=== PATIENT | female | born 1955 | race Caucasian/White ===

== ENCOUNTER 2018-02-21 10:54 | Emergency (ER) | payer BC, OTHER ==
--- OUTSIDE RECORDS SUMMARY | 2018-02-21 10:57 | XMS REPORT ---
:1955 Author Organization [employer] Care Team Providers Name Role Phone Deepthi Mcleod Provider Role Unavailable Allergies No Known Allergies Problems Problem Type Condition Code Onset Dates Condition Status Problem Sinusitis - Chronic J32.8 Active Problem Cellulitis of face L03.211 Active Problem Allergic rhinitis due to pollen J30.1 Active Problem Arthralgia of bilateral M26.623 Active temporomandibular joint Problem Nasal congestion R09.81 Active Problem Hearing loss - Sensorineural H90.3 Active Bilateral Problem Sinusitis - Chronic J32.8 Active Problem Wheezing R06.2 Active Problem Nasal airway obstruction J34.89 Active Problem Obstructive sleep apnea G47.33 Active Problem Cough R05 Active Medications Medication Code System Code Instructions Start Date End Date Status Dosage Bactrim [facility] [id number] 400-80 MG Orally Nov 15, Nov 29, Active 1 tablet Once a day 2017 2017 Results No Known Results Summary Purpose ReDigiinicalKAYAK Submission
--- OUTSIDE RECORDS SUMMARY | 2018-02-21 10:57 | XMS REPORT | Clinical Summary ---
:1955 Author Organization [facility] Address [address] [place] [address] Care Team Providers Name Role Phone Erasmo Mckenzie MD Primary Care Provider Allergies Active Allergy Reactions Severity Noted Date Comments Iodine Swelling 05/20/2016 Shrimp Swelling 05/20/2016 Current Medications Prescription Sig. Disp. Refills Start Date End Date Status PHENTERMINE HCL Take by mouth. Active (PHENTERMINE ORAL) traMADol (ULTRAM) 50 mg Take 50 mg by mouth Active tablet every 6 (six) hours as needed for moderate pain. atorvastatin (LIPITOR) 10 Take 10 mg by mouth Active MG tablet every evening. carvedilol (COREG) 6.25 Take 6.25 mg by Active MG tablet mouth 2 (two) times a day with meals. furosemide (LASIX) 80 MG Take 80 mg by mouth Active tablet daily. chlorproMAZINE Take 25 mg by mouth Active (THORAZINE) 25 MG tablet nightly. divalproex (DEPAKOTE) 500 Take 1,000 mg by Active MG EC tablet mouth nightly. levothyroxine (SYNTHROID, Take 200 mcg by Active LEVOTHROID) 200 MCG mouth every tablet morning. metFORMIN (GLUCOPHAGE) Take 500 mg by Active 500 MG tablet mouth 2 (two) times a day with meals. potassium chloride Take 10 mEq by Active (K-DUR,KLOR-CON) 10 MEQ mouth daily. CR tablet VENLAFAXINE HCL Take 150 mg by Active (VENLAFAXINE ORAL) mouth daily. MULTIVITAMIN ORAL Take 1 tablet by Active mouth daily. Active Problems Problem Noted Date S/P cervical spinal fusion 06/03/2016 Social History Tobacco Use Types Packs/Day Years Used Date Never Smoker Smokeless Tobacco: Never Used Tobacco Cessation: Counseling Given: No Alcohol Use Drinks/Week oz/Week Comments No Sex Assigned at Date Recorded Not on file Last Filed Vital Signs Not on file Plan of Treatment Health Maintenance Due Date Last Done Comments PAP SMEAR 1975 COLONOSCOPY 2004 MAMMOGRAM 2004 SHINGRIX VACCINE (#1) 2004 ZOSTER VACCINE 2014 INFLUENZA VACCINE 05/17/2018 Implants Implanted Type Area Public Works Supervisor Device Expiration Model / Identifier Date Serial / Lot Bone Matriz Osteocel Pro Small - [id number] - [id number] Human Anterior: NUVASIVE 09/13/2020 [id number] / Implanted: Qty: 1 on 06/03/2016 by Lucio Arzate MD Tissue Spine [id number] / Implants Cervical [id number] Distraction Pin- 12mm - [id number] IMPLANT Anterior: NUVASIVE SPINE [id number] / Implanted: 06/03/2016 (Quantity not on file) DEVICES Spine [id number] / Cervical Gradient Plus , Temporary Tacks - [id number] IMPLANT Anterior: NUVASIVE SPINE 06/02/2026 [id number] / Implanted: 06/03/2016 (Quantity not on file) DEVICES Spine [id number] / Cervical [id number] Spacer Spinal Cntord Med 5mm - [id number] Spinal Anterior: NUVASIVE 2025 [id number] / Implanted: 06/03/2016 (Quantity not on file) Implants Spine [id number] / Cervical [id number] Screw Spinal Fxd Slf-Tap 4x15mm [place] Revolution Acp - [id number] Spinal Anterior: NUVASIVE [id number] / Implanted: 06/03/2016 (Quantity not on file) Implants Spine [id number] / Cervical Screw Spinal Brenden Slf-Tap 4x15mm [place] Revolution Acp - [id number] Spinal Anterior: NUVASIVE [id number] / Implanted: 06/03/2016 (Quantity not on file) Implants Spine [id number] / Cervical Plate Spinal Revltn 1lvl 20mm [place] Acp - [id number] Spinal Anterior: NUVASIVE 06/02/2026 [id number] / Implanted: 06/03/2016 (Quantity not on file) Implants Spine [id number] / Cervical [id number] Results Not on fileafter 02/20/2017 Insurance Payer Benefit Plan / Group Subscriber ID Type Phone Address MEDICARE MEDICARE PART A AND B xxxxxxxxxx Medicare [place], [place] BCBS BCBS CHOICE PPO/FEDERAL EMPL PPO xxxxxxxxxxxx PPO [phone] [facility] [id number] [place] [address]
--- OUTSIDE RECORDS SUMMARY | 2018-02-21 10:57 | XMS REPORT | Clinical Summary ---
:1955 Author Organization [facility] Address [address] [place] [address] Phone Care Team Providers Name Role Phone Unavailable Primary Care Provider Unavailable Allergies Active Allergy Reactions Severity Noted Date Comments Iodine Swelling 05/20/2016 Shrimp Swelling 05/20/2016 Current Medications Prescription Sig. Disp. Refills Start Date End Date Status traZODone (DESYREL) Take 50 mg by Active 50 MG tablet mouth nightly. montelukast Take 10 mg by Active (SINGULAIR) 10 mg mouth every tablet morning. glimepiride Take 1 mg by Active (AMARYL) 1 MG mouth every tablet evening. furosemide (LASIX) Take 40 mg by Active 40 MG tablet mouth every morning. amitriptyline Take 25 mg by Active (ELAVIL) 25 MG mouth nightly. tablet carvedilol (COREG) Take 6.25 mg by Active 6.25 MG tablet mouth 2 (two) times daily. divalproex Take 500 mg by Active (DEPAKOTE) 500 MG mouth 2 (two) EC tablet times daily 2 tabs twice daily . atorvastatin Take 10 mg by Active (LIPITOR) 10 MG mouth daily. tablet levothyroxine Take 150 mcg by Active (SYNTHROID, mouth Every LEVOTHROID) 150 MCG morning on an tablet empty stomach. potassium chloride Take 10 mEq by Active (KLOR-CON) 10 MEQ mouth every CR tablet morning. venlafaxine Take 150 mg by Active (EFFEXOR-XR) 150 MG mouth daily. 24 hr capsule meloxicam (MOBIC) Take 7.5 mg by Active 7.5 MG tablet mouth daily. ferrous gluconate Take 324 mg by Active (FERGON) 324 MG mouth daily with tablet breakfast. cyanocobalamin Take 1,000 mcg by Active (VITAMIN B-12) 1000 mouth daily. MCG tablet cholecalciferol, Take 1,000 Units Active vitamin D3, 2,000 by mouth daily. unit Tab calcium Take 1 tablet by 30 tablet 0 12/04/2017 12/04/19 Active carbonate-vitamin mouth daily. 19 D3 (OSCAL-D) 500 mg(1,250mg) -200 unit per tablet acetaminophen-codei Take 1 tablet by 30 tablet 0 12/03/2017 12/13/19 ne (TYLENOL #4) mouth every 4 18 300-60 mg per (four) hours as tablet needed for Pain for up to 10 days. Max Daily Amount: 6 tablets sulfamethoxazole-tr Take 1 tablet 14 tablet 0 12/03/2017 12/03/19 Discontinued imethoprim (BACTRIM (160 mg of 18 DS) 800-160 mg per trimethoprim tablet total) by mouth 2 (two) times daily for 7 days. sulfamethoxazole-tr Take 1 tablet 14 tablet 0 12/03/2017 12/10/19 imethoprim (BACTRIM (160 mg of 18 DS) 800-160 mg per trimethoprim tablet total) by mouth 2 (two) times daily for 7 days. Active Problems Problem Noted Date Mastitis of left breast unrelated to or 11/30/2017 Diabetes mellitus (HCC) 11/30/2017 KWAKU (obstructive sleep apnea) 11/30/2017 Thyroid disease 11/30/2017 Morbid obesity (HCC) 11/30/2017 Essential hypertension 11/30/2017 Encounters Date Type Specialty Care Team Description 02/13/2018 Office Visit Wound Care Briseyda Santiago MD 02/06/2018 Office Visit Wound Briseyda Schroeder MD 01/25/2018 Office Visit Wound Briseyda Schroeder MD 01/25/2018 Ancillary Orders Lab Briseyda Santiago MD 01/25/2018 Ancillary Orders Lab Briseyda Santiago MD 01/25/2018 Orders Only Wound Care Macario, Chronic skin ulcer, LUZ 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 (HCC) (Primary Dx) 12/08/2017 [facility], Encounter for Encounter Sumaya Hitchcock MD screening mammogram for malignant neoplasm of breast 12/08/2017 Hospital Pavithra Bartlett and other Encounter Sumaya Hitchcock MD nonspecific skin eruption 12/08/2017 Outside Orders Pavithra Bartlett and other Sumaya Hitchcock MD nonspecific skin eruption (Primary Dx) 11/30/2017 - [facility] Internal Andrew Richardson Mastitis of left 12/03/2017 Encounter Medicine MD Anibal breast unrelated to Parhizgar, or MD Davin (Primary Dx) 11/29/2017 Outside Orders Central Scheduling Dhruv, Encounter for Sumaya Hitchcock MD screening mammogram for malignant neoplasm of breast (Primary Dx) 11/14/2017 Orders Only Deepthi Reeves Other chronic MD Benson sinusitis (Primary Dx) 11/14/2017 Orders Only Deepthi Reeves Cough (Primary MD Benson Dx);Other chronic sinusitis 11/14/2017 Hospital Deepthi Mcleod Cough Encounter MD Benson 11/14/2017 Outside Orders Deepthi Mcleod Cough (Primary Dx) MD Benson 08/31/2017 Outside Orders Central Scheduling Maxi Crews Acute sialoadenitis MD Jesús (Primary Dx) after 02/20/2017 Social History Tobacco Use Types Packs/Day Years Used Date Never Smoker Smokeless Tobacco: Never Used Tobacco Cessation: Counseling Given: No Alcohol Use Drinks/Week oz/Week Comments No Sex Assigned at Date Recorded Not on file Last Filed Vital Signs Vital Sign Reading Time Taken Blood Pressure 117/68 12/03/2017 7:10 AM DEPENDENCY CASE MANAGER Pulse 87 12/03/2017 7:10 AM DEPENDENCY CASE MANAGER Temperature 36.4 C (97.6 F) 12/03/2017 7:10 AM DEPENDENCY CASE MANAGER Respiratory Rate 18 12/03/2017 7:10 AM DEPENDENCY CASE MANAGER Oxygen Saturation 93% 12/03/2017 7:10 AM DEPENDENCY CASE MANAGER Inhaled Oxygen Concentration - - Weight 121.6 kg (268 lb) 11/30/2017 2:24 PM DEPENDENCY CASE MANAGER Height 162.6 cm (5' 4") 11/30/2017 2:24 PM DEPENDENCY CASE MANAGER Body Mass Index 46 11/30/2017 2:24 PM DEPENDENCY CASE MANAGER Plan of Treatment Not on file Results Surgically obtained culture + gram stain (01/25/2018 4:09 PM) Component Value Ref Range Result No growth Gram Stain Result <1+ White blood cells seen Gram Stain Result No organisms seen Specimen Performing Laboratory Tissue - Breast, Left [facility] [address] [facility] [address] US Breast Left (12/08/2017 3:56 PM) Specimen Performing Laboratory [facility] Narrative #[id number] - MM, U/S, BREAST, UNILATERAL, LEFT ULTRASOUND OF LEFT BREAST: 12/08/2017 No prior exams were available for comparison. Color flow and real-time ultrasound of the left breast were performed. Ultrasound of all four quadrants and the retroareolar breast was performed.Mondragon scale images of the real-time examination were reviewed. No suspicious abnormalities were seen sonographically in the left breast. The left middle 12 o'clock clinical concern corresponds to focal dermatitis. IMPRESSION: BENIGN The findings and recommendations have been discussed with the patient. There is no sonographic evidence of malignancy. Macie Diop M.D. pth/:12/08/2017 16:18:20 Wastewater Treatment Supervisor: Phuong Pugh Regulatory Product Manager, [facility] Ultrasound BI-RADS: 2 Benign [id number] Procedure Note Interface, External Ris In - 12/08/2017 7:16 PM DEPENDENCY CASE MANAGER #[id number] - MM, U/S, BREAST, UNILATERAL, LEFT ULTRASOUND OF LEFT BREAST: 12/08/2017 No prior exams were available for comparison. Color flow and real-time ultrasound of the left breast were performed. Ultrasound of all four quadrants and the retroareolar breast was performed.Mondragon scale images of the real-time examination were reviewed. No suspicious abnormalities were seen sonographically in the left breast. The left middle 12 o'clock clinical concern corresponds to focal dermatitis. IMPRESSION: BENIGN The findings and recommendations have been discussed with the patient. There is no sonographic evidence of malignancy. Macie Diop M.D. pth/:12/08/2017 16:18:20 Wastewater Treatment Supervisor: Phuong Pugh Regulatory Product Manager, [facility] Ultrasound BI-RADS: 2 Benign [id number] digital mammo diagnostic bilateral (12/08/2017 3:26 PM) Specimen Performing Laboratory [facility] Narrative #[id number] - MM, DIGITAL MAMMO, DIAGNOSTIC, BILATERAL INCLUDING CAD BILATERAL DIGITAL DIAGNOSTIC MAMMOGRAM WITH CAD: 12/08/2017 No prior exams were available for comparison. The tissue of both breasts is predominantly fatty. Current study was also evaluated with a Computer Aided Detection (CAD) system. Benign appearing calcifications are present in both breasts.No significant masses, calcifications, or other findings are seen in either breast. IMPRESSION: BENIGN There is no mammographic abnormality seen in the left breast to correspond with the reported palpable abnormality; however, further workup with ultrasound is recommended. Macie Diop M.D. pth/:12/08/2017 16:16:27 Wastewater Treatment Supervisor: Ashely EMANUEL(R)(M), [facility] Mammogram BI-RADS: 2 Benign G0204 Procedure Note Interface, External Ris In - 12/08/2017 7:16 PM DEPENDENCY CASE MANAGER #[id number] - MM, DIGITAL MAMMO, DIAGNOSTIC, BILATERAL INCLUDING CAD BILATERAL DIGITAL DIAGNOSTIC MAMMOGRAM WITH CAD: 12/08/2017 No prior exams were available for comparison. The tissue of both breasts is predominantly fatty. Current study was also evaluated with a Computer Aided Detection (CAD) system. Benign appearing calcifications are present in both breasts. No significant masses, calcifications, or other findings are seen in either breast. IMPRESSION: BENIGN There is no mammographic abnormality seen in the left breast to correspond with the reported palpable abnormality; however, further workup with ultrasound is recommended. Macie Diop M.D. pth/:12/08/2017 16:16:27 Wastewater Treatment Supervisor: Ashely EMANUEL(R)(M), [facility] Mammogram BI-RADS: 2 Benign G0204 -Glucose meter (12/03/2017 7:33 AM)Only the most recent of10 resultswithin the time period is included. Component Value Ref Range POC-Glucose Meter 125 (H)Comment: TESTED AT [address] 70 - 110 mg/[place] [address] Specimen Performing Laboratory Blood [address] [address] Calcium, Ionized (12/03/2017 4:50 AM)Only the most recent of3 resultswithin the time period is included. Component Value Ref Range Calcium, Ion 1.10 (L) 1.12 - 1.27 mmol/L pH, Blood 7.36 Specimen Performing Laboratory Blood [address] [address] CBC with platelet count + automated diff (12/03/2017 4:50 AM)Only the most recent of5 resultswithin the time period is included. Component Value Ref Range WBC 7.1 3.5 - 10.5 K/L RBC 3.75 (L) 3.93 - 5.22 M/L Hemoglobin 11.6 11.2 - 15.7 GM/DL Hematocrit 37.0 34.1 - 44.9 % MCV 98.7 (H) 79.4 - 94.8 fL MCH 30.9 25.6 - 32.2 pg MCHC 31.4 (L) 32.2 - 35.5 GM/DL RDW 14.5 (H) 11.7 - 14.4 % Platelets 256 150 - 450 K/CU MM MPV 9.2 (L) 9.4 - 12.3 fL nRBC 0 0 - 0 /100 WBC % Neutros 49 % % Lymphs 39 % % Monos 9 % % Eos 2 % % Baso 0 % # Neutros 3.46 1.56 - 6.13 K/L # Lymphs 2.78 1.18 - 3.74 K/L # Monos 0.62 (H) 0.24 - 0.36 K/L # Eos 0.14 0.04 - 0.36 K/L # Baso 0.03 0.01 - 0.08 K/L Immature Granulocytes-Relative 0 0 - 1 % Specimen Performing Laboratory Blood [facility] [address] CBC with platelet count + automated diff (12/03/2017 4:50 AM)Only the most recent of5 resultswithin the time period is included. Specimen Performing Laboratory Blood Narrative The following orders were created for panel order CBC with platelet count + automated diff. Procedure Abnormality Status --------- ------ CBC with platelet count ...[[id number]]AbnormalFinal result Please view results for these tests on the individual orders. Phosphorus (12/03/2017 4:50 AM)Only the most recent of3 resultswithin the time period is included. Component Value Ref Range Phosphorus 4.3 2.3 - 4.7 mg/dL Specimen Performing Laboratory Blood [address] [address] Magnesium (12/03/2017 4:50 AM)Only the most recent of3 resultswithin the time period is included. Component Value Ref Range Magnesium 1.7 1.6 - 2.6 mg/dL Specimen Performing Laboratory Blood [address] [address] Basic Metabolic Panel (12/03/2017 4:50 AM)Only the most recent of5 resultswithin the time period is included. Component Value Ref Range Sodium 135 (L) 136 - 145 meq/L Potassium 3.9 3.5 - 5.1 meq/L Chloride 97 (L) 98 - 107 meq/L CO2 27 22 - 29 meq/L BUN 20 7 - 21 mg/dL Creatinine 0.84 0.57 - 1.25 mg/dL Glucose 117 (H) 70 - 105 mg/dL Calcium 8.7 8.4 - 10.2 mg/dL EGFR 68Comment: ESTIMATED GFR IS NOT ACCURATE mL/min/1.73 sq m CREATININE CLEARANCE IN PREDICTING GLOMERULAR FILTRATION RATE. ESTIMATED GFR IS NOT APPLICABLE FOR DIALYSIS PATIENTS. Specimen Performing Laboratory Blood [address] [address] Vancomycin level, trough (12/02/2017 10:41 AM) Component Value Ref Range Vancomycin Tr 16.1 10.0 - 20.0 ug/mL Specimen Performing Laboratory Blood - Arm, Left [facility] [address] Vitamin D, 25-Hydroxy (12/02/2017 6:03 AM) Component Value Ref Range Vitamin D 25-Hydroxy 22.5 6.6 - 49.9 ng/mL Specimen Performing Laboratory Blood - Arm, [address] [address] Narrative Effective 07/27/2017: Reference Range Change New: 6.6-49.9 ng/mL Previous: 13.0-47.8 ng/mL Recommended Vitamin D Target Range: 30.0-40.0 ng/mL Manual Differential (12/01/2017 4:22 AM) Component Value Ref Range Total Counted Specimen Performing Laboratory Blood [address] [address] TSH/Free T4 If Indicated (12/01/2017 4:22 AM) Component Value Ref Range TSH 4.13 0.35 - 4.94 uIU/mL Specimen Performing Laboratory Blood [address] [address] Hemoglobin A1c (12/01/2017 4:22 AM) Component Value Ref Range Hemoglobin A1C 6.6 (H) 4.3 - 6.1 % Specimen Performing Laboratory Blood [address] [address] Lipid panel (12/01/2017 4:22 AM) Component Value Ref Range Triglycerides 357 mg/dL Cholesterol 161 mg/dL HDL 44 mg/dL LDL Calculated 46 mg/dL Specimen Performing Laboratory Blood [address] [address] Narrative Triglyceride Reference Range: Low Risk <150 [id number] High Risk 200-499 Very High Risk>=500 Cholesterol Reference Range: Low Risk <200 [id number] High Risk>240 HDL Cholesterol Reference Range: Low Risk >=60 High Risk <40 LDL Cholesterol Reference Range: Optimal<100 Near Gfmhznz212-079 [id number] Qalm256-837 Very High >=190 Blood culture (11/30/2017 11:12 PM)Only the most recent of2 resultswithin the time period is included. Component Value Ref Range Result No growth in 5 days Specimen Performing Laboratory Blood - Arm, [address] [address] XR chest 2 views (11/30/2017 3:05 PM)Only the most recent of2 resultswithin the time period is included. Specimen Performing Laboratory [facility] Narrative FINAL REPORT Chest two views compared to November 14, 2017 Discussion: Lungs clear. Heart size normal. No effusion or pneumothorax. There are right shoulder degenerative changes. Widened left AC joint may reflect previous surgery or trauma. Signed: Eryn Lake MD Report Verified Date/Time:11/30/2017 15:19:59 Reading Location: [facility] C013 Consult Reading Room Procedure Note Interface, External Ris In - 11/30/2017 3:22 PM DEPENDENCY CASE MANAGER FINAL REPORT Chest two views compared to November 14, 2017 Discussion: Lungs clear. Heart size normal. No effusion or pneumothorax. There are right shoulder degenerative changes. Widened left AC joint may reflect previous surgery or trauma. Signed: Eryn Lake MD Report Verified Date/Time: 11/30/2017 15:19:59 Reading Location: [facility] B1 [id number] Consult Reading Room Hepatic function panel (11/14/2017 1:30 PM) Component Value Ref Range Protein, Total 7.1 6.0 - 8.3 gm/dL Albumin 3.7 3.5 - 5.0 g/dL Total Bilirubin 0.3 0.2 - 1.2 mg/dL Bilirubin, Direct 0.1 0.1 - 0.5 mg/dL Alkaline Phosphatase 109 40 - 150 U/L AST 18 5 - 34 U/L ALT 9 6 - 55 U/L Specimen Performing Laboratory Blood - Arm, Right [address] [address] Sinus Culture + Gram Stain (11/14/2017 11:23 AM) Component Value Ref Range Result Result 1+ Methicillin resistant Staphylococcus aureus (A) Gram Stain Result <1+ WBCs Gram Stain Result No organisms seen Specimen Performing Laboratory Other [address] [address] Narrative No Normal respiratory batsheva present Organism Antibiotic Method Susceptibility Methicillin resistant Clindamycin 0.25: Susceptible Staphylococcus aureus Methicillin resistant Erythromycin >=8: Resistant Staphylococcus aureus Methicillin resistant Linezolid 2: Susceptible Staphylococcus aureus Methicillin resistant Oxacillin >=4: Resistant Staphylococcus aureus Methicillin resistant Rifampin <=0.5: Susceptible Staphylococcus aureus Methicillin resistant Tetracycline <=1: Susceptible Staphylococcus aureus Methicillin resistant Trimethoprim + <=10: Susceptible Staphylococcus aureus Sulfamethoxazole Methicillin resistant Vancomycin <=0.5: Susceptible Staphylococcus aureus after 02/20/2017
--- OUTSIDE RECORDS SUMMARY | 2018-02-21 10:57 | XMS REPORT ---
:1955 [facility] Team Providers Name Role Phone Deepthi Mcleod Provider Role Unavailable Allergies, Adverse Reactions, Alerts Substance Reaction Event Type N.K.D.A. Info Not Available Non Drug Allergy Problems Problem Type Condition Code Onset Dates Condition Status Problem Allergic rhinitis due to pollen J30.1 Active Problem Nasal airway obstruction J34.89 Active Problem Cellulitis of face L03.211 Active Problem Sinusitis - Chronic J32.8 Active Problem Nasal congestion R09.81 Active Problem Methicillin susceptible B95.61 Active Staphylococcus aureus infection as the cause of diseases classified elsewhere Problem Cough R05 Active Problem Wheezing R06.2 Active Problem Hearing loss - Sensorineural H90.3 Active Bilateral Problem Obstructive sleep apnea G47.33 Active Assessment Nasal airway obstruction J34.89 Active Assessment Sinusitis - Chronic J32.8 Active Problem Arthralgia of bilateral M26.623 Active temporomandibular joint Problem Sinusitis - Chronic J32.8 Active Medications Medication Code Code Instructions Start End Status Dosage System Date Date Bactroban [facility] 52853806657 2 % Nasally Oct Active 1 Twice a day 23, 20, application 2017 2017 to affected area Bactrim ND 71599447612 400-80 MG Oct Active 1 tablet Orally Once a 30, 13, day 2017 2017 Mupirocin [facility] 99909688517 2 % Externally Active 1 Three times a application day to affected area Levothyroxine Sodium ND 79068964505 200 MCG Orally Active 1 tablet Once a day Ferrous Gluconate ND 87489304813 324 (38 Fe) MG Active not defined Orally Augmentin [facility] 95773864612 Active not defined ProAir HFA [facility] 07927277549 108 (90 Base) Active 2 puffs as MCG/ACT needed Inhalation every 4 hrs Trazodone HCl ND 17020849261 150 MG Orally Active 1 tablet at Once a day bedtime Hydrochlorothiazide ND 84330464233 50 MG Orally Active 1 tablet Once a day Medrol (Ranjeet) [facility] 10330453833 4 MG Orally Aug Active as directed 2016 Metformin HCl ND 79778103106 500 MG Orally Active 1 tablet Twice a day with meals Pravastatin Sodium ND 56462164283 40 MG Orally Active 1 tablet Once a day Depakote ER ND 40534955360 500 MG Orally Active not defined Bactrim [facility] 30451630876 400-80 MG Oct Active 1 tablet Orally Once a , , day 2017 2017 Medrol (Ranjeet) [facility] 93783125583 4 MG Orally Oct Active as directed 2015 Results No Known Results Summary Purpose eClinicalWorks Submission
--- OUTSIDE RECORDS SUMMARY | 2018-02-21 10:57 | XMS REPORT ---
:1955 [facility] Providers Name Role Phone Deepthi [...] Arthralgia of bilateral M26.623 Active temporomandibular joint Assessment Methicillin susceptible B95.61 Active Staphylococcus aureus infection as the cause of diseases classified elsewhere Problem Sinusitis - Chronic J32.8 Active Medications Medication Code Code Instructions Start End Status Dosage System Date Date Bactroban [facility] 18939191591 2 % Nasally Oct Active 1 Twice a day , , application 2017 2017 to affected area Medrol (Ranjeet) ND 84446939393 4 MG Orally Oct Active as directed 2015 Ferrous Gluconate ND 64268093162 324 (38 Fe) MG Active not defined Orally Pravastatin Sodium ND 11859210937 40 MG Orally Active 1 tablet Once a day ProAir HFA ND 49331625506 108 (90 Base) Active 2 puffs as MCG/ACT needed Inhalation every 4 hrs Medrol (Ranjeet) ND 86712382775 4 MG Orally Aug Active as directed 2016 Depakote ER ND 25975271638 500 MG Orally Active not defined Mupirocin ND 26352722353 2 % Externally Active 1 Three times a application day to affected area Hydrochlorothiazide ND 83674931377 50 MG Orally Active 1 tablet Once a day Levothyroxine Sodium [facility] 85003295168 200 MCG Orally Active 1 tablet Once a day Trazodone HCl [facility] 35117369844 150 MG Orally Active 1 tablet at Once a day bedtime Augmentin [facility] 18958414292 Active not defined Bactrim [facility] 36075368577 400-80 MG Oct Active 1 tablet Orally Once a 2017 Bactrim [facility] 81801662591 400-80 MG Oct Active 1 tablet Orally Once a , 2017 Metformin HCl [facility] 69022761477 500 MG Orally Active 1 tablet Twice a day with meals Results No Known Results Summary Purpose eClinicalWorks Submission
--- OUTSIDE RECORDS SUMMARY | 2018-02-21 10:57 | XMS REPORT ---
:1955 [facility] Address [address] [place] [place] [address] Care Team Providers Name Role Phone CANDELARIA ISRRAEL DESAI Unavailable Unavailable AILYN SPRING Unavailable Unavailable Problems This patient has no known problems. Allergies, Adverse Reactions, Alerts This patient has no known allergies or adverse reactions. Medications This patient has no known medications. Results Test Description Test Time Test Comments Text Results Atomic Results Result Comments SURGICALLY OBTAINED CULTURE + GRAM STAIN 2018-01-28 10:13:00 Test Item Value Reference Range Comments CULTURE (BEAKER) (test mfcs=2683) No growth GRAM STAIN RESULT (BEAKER) (test cqtg=0976) <1+ White blood cells seen GRAM STAIN RESULT (BEAKER) (test hcpo=87577) No organisms seen MM, U/S, BREAST, UNILATERAL, [id number] 16:18:00Reason for Exam:->r21N# : [id number] - MM, U/S, BREAST, UNILATERAL, LEFTULTRASOUND OF LEFT BREAST : 12/08/2017No prior exams were available for comparison. Color flow and real- time ultrasound of the left breast wereperformed. Ultrasound of all four quadrants and the retroareolar breast was performed.Mondragon scale images of the real-time examination were reviewed. No suspicious abnormalities were seen sonographically in the left breast. The left middle 12 o'clock clinical concern corresponds to focal dermatitis. IMPRESSION: BENIGN The findings and recommendations have been discussed with the patient. There is no sonographic evidence of malignancy. Macie Esquivel M.D. pth/:12/08/2017 16:18:20 Tobacco Baler: Phuong Pugh Dialysis Nurse, [facility] Ultrasound BI-RADS: 2 Benign [address] MM, DIGITAL MAMMO, DIAGNOSTIC, BILATERAL INCLUDING [id number] 16:16:00Reason for Exam:-& gt;Encounter for screening mammogram for malugnant neoplasm of breastMRN#: [id number] - MM, DIGITAL MAMMO, DIAGNOSTIC, BILATERAL INCLUDING CADBILATERAL DIGITAL DIAGNOSTIC MAMMOGRAM WITH CAD: 12/08/2017No prior exams were available for comparison. The tissue of both breasts is predominantly fatty. Current study was also evaluated with a Computer Aided Detection (CAD) system. Benign appearing calcifications are present in both breasts. No significant masses, calcifications, or other findings are seen in either breast. IMPRESSION: BENIGNThere is no mammographic abnormality seen in the left breast to correspond with the reported palpable abnormality; however, further workup with ultrasound is recommended. Macie Esquivel M.D. pth/:12/08/2017 16:16:27 Tobacco Baler: Ashely EMANUEL(Roxana)(M), [facility] Mammogram BI-RADS: 2 Benign [id number] BLOOD [id number] 05:01:00 Test Item Value Reference Range Comments CULTURE (BEAKER) (test faxk=6732) No growth in 5 days BLOOD [id number] 23:00:00 Test Item Value Reference Range Comments CULTURE (BEAKER) (test sekr=0043) No growth in 5 days POCT-GLUCOSE [id number] 07:45:00 Test Item Value Reference Range Comments POC-GLUCOSE METER (BEAKER) 125 mg/dL 70-[address] [facility] [address] [place] [address] (test akvp=1593) [facility] [address] CALCIUM, [id number] 06:18:00 Test Item Value Reference Range Comments CALCIUM IONIZED (BEAKER) (test qcxd=149) 1.10 mmol/L 1.12-1.27 PH, BLOOD (BEAKER) (test xyir=7978) 7.36 [id number] 06:10:00 Test Item Value Reference Range Comments PHOSPHORUS (BEAKER) (test fqer=925) 4.3 mg/dL 2.3-4.7 [id number] 06:10:00 Test Item Value Reference Range Comments MAGNESIUM (BEAKER) (test swot=706) 1.7 mg/dL 1.6-2.6 BASIC METABOLIC [id number] 06:10:00 Test Item Value Reference Range Comments SODIUM (BEAKER) (test 135 meq/L 136-145 xjkb=306) POTASSIUM (BEAKER) (test 3.9 meq/L 3.5-5.1 hzsd=317) CHLORIDE (BEAKER) (test 97 meq/L 98-107 pujy=146) CO2 (BEAKER) (test 27 meq/L 22-29 zwub=807) BLOOD UREA NITROGEN 20 mg/dL 7-21 (BEAKER) (test etps=344) CREATININE (BEAKER) (test 0.84 mg/dL 0.57-1.25 ltdf=518) GLUCOSE RANDOM (BEAKER) 117 mg/dL 70-105 (test zues=970) CALCIUM (BEAKER) (test 8.7 mg/dL 8.4-10.2 lsup=609) EGFR (BEAKER) (test 68 mL/min/1.73 sq m ESTIMATED GFR IS NOT shkk=9209) ACCURATE CREATININE CLEARANCE IN PREDICTING GLOMERULAR FILTRATION RATE. ESTIMATED GFR IS NOT APPLICABLE FOR DIALYSIS PATIENTS. CBC W/PLT COUNT & AUTO [id number] 05:28:00 Test Item Value Reference Range Comments WHITE BLOOD CELL COUNT (BEAKER) (test lznb=530) 7.1 K/ L 3.5-10.5 RED BLOOD CELL COUNT (BEAKER) (test gpeu=041) 3.75 M/ L 3.93-5.22 HEMOGLOBIN (BEAKER) (test zoia=985) 11.6 GM/DL 11.2-15.7 HEMATOCRIT (BEAKER) (test pjop=374) 37.0 % 34.1-44.9 MEAN CORPUSCULAR VOLUME (BEAKER) (test wazo=547) 98.7 fL 79.4-94.8 MEAN CORPUSCULAR HEMOGLOBIN (BEAKER) (test 30.9 pg 25.6-32.2 eogk=729) MEAN CORPUSCULAR HEMOGLOBIN CONC (BEAKER) (test 31.4 GM/DL 32.2-35.5 epfi=734) RED CELL DISTRIBUTION WIDTH (BEAKER) (test 14.5 % 11.7-14.4 blxg=698) PLATELET COUNT (BEAKER) (test twcz=433) 256 K/CU MM 150-450 MEAN PLATELET VOLUME (BEAKER) (test gxjl=219) 9.2 fL 9.4-12.3 NUCLEATED RED BLOOD CELLS (BEAKER) (test 0 /100 WBC 0-0 ruxb=709) NEUTROPHILS RELATIVE PERCENT (BEAKER) (test 49 % ecfo=720) LYMPHOCYTES RELATIVE PERCENT (BEAKER) (test 39 % avwa=816) MONOCYTES RELATIVE PERCENT (BEAKER) (test 9 % ighx=857) EOSINOPHILS RELATIVE PERCENT (BEAKER) (test 2 % yuxm=649) BASOPHILS RELATIVE PERCENT (BEAKER) (test 0 % ulsd=871) NEUTROPHILS ABSOLUTE COUNT (BEAKER) (test 3.46 K/ L 1.56-6.13 nncr=453) LYMPHOCYTES ABSOLUTE COUNT (BEAKER) (test 2.78 K/ L 1.18-3.74 rnnw=315) MONOCYTES ABSOLUTE COUNT (BEAKER) (test 0.62 K/ L 0.24-0.36 pwvc=710) EOSINOPHILS ABSOLUTE COUNT (BEAKER) (test 0.14 K/ L 0.04-0.36 runy=435) BASOPHILS ABSOLUTE COUNT (BEAKER) (test 0.03 K/ L 0.01-0.08 gjxw=746) IMMATURE GRANULOCYTES-RELATIVE PERCENT (BEAKER) 0 % 0-1 (test pbmm=8953) POCT-GLUCOSE [id number] 21:40:00 Test Item Value Reference Range Comments POC-GLUCOSE METER (BEAKER) 138 mg/dL 70-110 TESTED AT [address] (test gbya=9694) [facility] [address] POCT-GLUCOSE [id number] 18:56:00 Test Item Value Reference Range Comments POC-GLUCOSE METER (BEAKER) 98 mg/dL 70-110 TESTED AT [address] (test icll=2200) [facility] [address] POCT-GLUCOSE [id number] 14:49:00 Test Item Value Reference Range Comments POC-GLUCOSE METER (BEAKER) 92 mg/dL 70-[address] [facility] [address] [facility] (test iisb=6561) [facility] [address] VANCOMYCIN LEVEL, [id number] 11:12:00 Test Item Value Reference Range Comments VANCOMYCIN TROUGH (BEAKER) (test szjn=886) 16.1 ug/mL 10.0-20.0 POCT-GLUCOSE [id number] 09:35:00 Test Item Value Reference Range Comments POC-GLUCOSE METER (BEAKER) 123 mg/dL 70-110 TESTED AT [address] (test imbh=6258) [facility] [address] CBC W/PLT COUNT & AUTO [id number] 09:02:00 Test Item Value Reference Range Comments WHITE BLOOD CELL COUNT (BEAKER) (test zpbv=760) 6.2 K/ L 3.5-10.5 RED BLOOD CELL COUNT (BEAKER) (test fkyl=186) 3.72 M/ L 3.93-5.22 HEMOGLOBIN (BEAKER) (test ganx=546) 11.5 GM/DL 11.2-15.7 HEMATOCRIT (BEAKER) (test dqsj=781) 36.5 % 34.1-44.9 MEAN CORPUSCULAR VOLUME (BEAKER) (test dxit=566) 98.1 fL 79.4-94.8 MEAN CORPUSCULAR HEMOGLOBIN (BEAKER) (test 30.9 pg 25.6-32.2 ohwo=313) MEAN CORPUSCULAR HEMOGLOBIN CONC (BEAKER) (test 31.5 GM/DL 32.2-35.5 gfso=986) RED CELL DISTRIBUTION WIDTH (BEAKER) (test 14.4 % 11.7-14.4 tbna=880) PLATELET COUNT (BEAKER) (test jnzq=175) 268 K/CU MM 150-450 MEAN PLATELET VOLUME (BEAKER) (test iklw=411) 9.1 fL 9.4-12.3 NUCLEATED RED BLOOD CELLS (BEAKER) (test 0 /100 WBC 0-0 vham=826) NEUTROPHILS RELATIVE PERCENT (BEAKER) (test 44 % vixi=870) LYMPHOCYTES RELATIVE PERCENT (BEAKER) (test 44 % ziqo=486) MONOCYTES RELATIVE PERCENT (BEAKER) (test 9 % nsqa=218) EOSINOPHILS RELATIVE PERCENT (BEAKER) (test 2 % zyef=767) BASOPHILS RELATIVE PERCENT (BEAKER) (test 0 % goud=326) NEUTROPHILS ABSOLUTE COUNT (BEAKER) (test 2.70 K/ L 1.56-6.13 ddxy=124) LYMPHOCYTES ABSOLUTE COUNT (BEAKER) (test 2.70 K/ L 1.18-3.74 payk=715) MONOCYTES ABSOLUTE COUNT (BEAKER) (test 0.58 K/ L 0.24-0.36 vfeq=346) EOSINOPHILS ABSOLUTE COUNT (BEAKER) (test 0.15 K/ L 0.04-0.36 uuvq=055) BASOPHILS ABSOLUTE COUNT (BEAKER) (test 0.02 K/ L 0.01-0.08 lyzs=312) IMMATURE GRANULOCYTES-RELATIVE PERCENT (BEAKER) 0 % 0-1 (test ukaj=4742) VITAMIN D, [id number] 07:00:00 Test Item Value Reference Range Comments VITAMIN D 25-OH (BEAKER) (test msqv=6669) 22.5 ng/mL 6.6-49.9 Effective 07/27/2017: Reference Range ChangeNew: 6.6-49.9 ng/mL Previous: 13.0 -47.8 ng/mLRecommended Vitamin D Target Range: 30.0-40.0 ng/[id number] 06:39:00 Test Item Value Reference Range Comments PHOSPHORUS (BEAKER) (test joih=122) 4.6 mg/dL 2.3-4.7 [id number] 06:39:00 Test Item Value Reference Range Comments MAGNESIUM (BEAKER) (test xzwy=809) 1.7 mg/dL 1.6-2.6 BASIC METABOLIC [id number] 06:39:00 Test Item Value Reference Range Comments SODIUM (BEAKER) (test 139 meq/L 136-145 xlud=563) POTASSIUM (BEAKER) (test 4.2 meq/L 3.5-5.1 ihiw=437) CHLORIDE (BEAKER) (test 102 meq/L 98-107 nqty=252) CO2 (BEAKER) (test 26 meq/L 22-29 ngao=396) BLOOD UREA NITROGEN 16 mg/dL 7-21 (BEAKER) (test lxmq=491) CREATININE (BEAKER) (test 0.75 mg/dL 0.57-1.25 xjkd=613) GLUCOSE RANDOM (BEAKER) 106 mg/dL 70-105 (test xkax=025) CALCIUM (BEAKER) (test 9.3 mg/dL 8.4-10.2 idxm=475) EGFR (BEAKER) (test 78 mL/min/1.73 sq m ESTIMATED GFR IS NOT fvct=9413) ACCURATE CREATININE CLEARANCE IN PREDICTING GLOMERULAR FILTRATION RATE. ESTIMATED GFR IS NOT APPLICABLE FOR DIALYSIS PATIENTS. CALCIUM, [id number] 06:30:00 Test Item Value Reference Range Comments CALCIUM IONIZED (BEAKER) (test trmo=769) 0.87 mmol/L 1.12-1.27 PH, BLOOD ([facility]) (test olfw=9068) 7.37 POCT-GLUCOSE [id number] 20:32:00 Test Item Value Reference Range Comments POC-GLUCOSE METER (BEAKER) 173 mg/dL 70-110 TESTED AT [address] (test kaeq=0710) [place] [address] POCT-GLUCOSE [id number] 18:41:00 Test Item Value Reference Range Comments POC-GLUCOSE METER (BEAKER) 121 mg/dL 70-110 TESTED AT [address] (test gnym=9900) [place] [address] HEMOGLOBIN [id number] 14:36:00 Test Item Value Reference Range Comments HEMOGLOBIN A1C (BEAKER) (test cgdw=663) 6.6 % 4.3-6.1 POCT-GLUCOSE [id number] 12:36:00 Test Item Value Reference Range Comments POC-GLUCOSE METER (BEAKER) 139 mg/dL 70-110 TESTED AT [address] (test bseu=7098) [place] [id number] POCT-GLUCOSE [id number] 08:34:00 Test Item Value Reference Range Comments POC-GLUCOSE METER (BEAKER) 125 mg/dL 70-110 TESTED AT [address] (test uwmb=2943) [place] [address] CBC W/PLT COUNT & AUTO [id number] 07:16:00 Test Item Value Reference Range Comments WHITE BLOOD CELL COUNT (BEAKER) (test imjh=007) 7.6 K/ L 3.5-10.5 RED BLOOD CELL COUNT (BEAKER) (test kylz=271) 3.58 M/ L 3.93-5.22 HEMOGLOBIN (BEAKER) (test qhbf=961) 11.2 GM/DL 11.2-15.7 HEMATOCRIT (BEAKER) (test kvnb=883) 35.6 % 34.1-44.9 MEAN CORPUSCULAR VOLUME (BEAKER) (test uqmy=811) 99.4 fL 79.4-94.8 MEAN CORPUSCULAR HEMOGLOBIN (BEAKER) (test 31.3 pg 25.6-32.2 sdbv=818) MEAN CORPUSCULAR HEMOGLOBIN CONC (BEAKER) (test 31.5 GM/DL 32.2-35.5 kcnq=590) RED CELL DISTRIBUTION WIDTH (BEAKER) (test 14.5 % 11.7-14.4 njpu=284) PLATELET COUNT (BEAKER) (test fgrz=776) 274 K/CU MM 150-450 MEAN PLATELET VOLUME (BEAKER) (test djlk=469) 9.1 fL 9.4-12.3 NUCLEATED RED BLOOD CELLS (BEAKER) (test 0 /100 WBC 0-0 ewdu=000) NEUTROPHILS RELATIVE PERCENT (BEAKER) (test 44 % ckkc=833) LYMPHOCYTES RELATIVE PERCENT (BEAKER) (test 43 % rydp=450) MONOCYTES RELATIVE PERCENT (BEAKER) (test 10 % potd=577) EOSINOPHILS RELATIVE PERCENT (BEAKER) (test 2 % qtgb=299) BASOPHILS RELATIVE PERCENT (BEAKER) (test 0 % htuo=713) NEUTROPHILS ABSOLUTE COUNT (BEAKER) (test 3.29 K/ L 1.56-6.13 mhyf=961) LYMPHOCYTES ABSOLUTE COUNT (BEAKER) (test 3.26 K/ L 1.18-3.74 rzfy=837) MONOCYTES ABSOLUTE COUNT (BEAKER) (test 0.75 K/ L 0.24-0.36 veor=368) EOSINOPHILS ABSOLUTE COUNT (BEAKER) (test 0.18 K/ L 0.04-0.36 ukre=520) BASOPHILS ABSOLUTE COUNT (BEAKER) (test 0.03 K/ L 0.01-0.08 cwzq=176) IMMATURE GRANULOCYTES-RELATIVE PERCENT (BEAKER) 1 % 0-1 (test tkhq=3681) (MANUAL DIFFERENTIAL)2017-12-01 07:16:00 Test Item Value Reference Range Comments TOTAL COUNTED (BEAKER) (test ldxd=1201) TSH/FREE T4 IF [id number] 06:48:00 Test Item Value Reference Range Comments THYROID STIMULATING HORMONE (BEAKER) (test 4.13 uIU/mL 0.35-4.94 jwvf=770) [id number] 06:25:00 Test Item Value Reference Range Comments PHOSPHORUS (BEAKER) (test okat=498) 3.9 mg/dL 2.3-4.7 [id number] 06:25:00 Test Item Value Reference Range Comments MAGNESIUM (BEAKER) (test igbb=801) 1.8 mg/dL 1.6-2.6 BASIC METABOLIC [id number] 06:25:00 Test Item Value Reference Range Comments SODIUM (BEAKER) (test 138 meq/L 136-145 dkhy=074) POTASSIUM (BEAKER) (test 4.0 meq/L 3.5-5.1 pvra=500) CHLORIDE (BEAKER) (test 102 meq/L 98-107 uehc=849) CO2 (BEAKER) (test 25 meq/L 22-29 wctq=883) BLOOD UREA NITROGEN 15 mg/dL 7-21 (BEAKER) (test boqb=331) CREATININE (BEAKER) (test 0.82 mg/dL 0.57-1.25 amub=625) GLUCOSE RANDOM (BEAKER) 100 mg/dL 70-105 (test iofp=930) CALCIUM (BEAKER) (test 9.0 mg/dL 8.4-10.2 lwky=355) EGFR (BEAKER) (test 70 mL/min/1.73 sq m ESTIMATED GFR IS NOT fbor=6079) ACCURATE CREATININE CLEARANCE IN PREDICTING GLOMERULAR FILTRATION RATE. ESTIMATED GFR IS NOT APPLICABLE FOR DIALYSIS PATIENTS. LIPID [id number] 06:25:00 Test Item Value Reference Range Comments TRIGLYCERIDES (BEAKER) (test forc=744) 357 mg/dL CHOLESTEROL (BEAKER) (test uhzz=964) 161 mg/dL HDL CHOLESTEROL (BEAKER) (test vbbb=668) 44 mg/dL LDL CHOLESTEROL CALCULATED (BEAKER) (test 46 mg/dL fxmn=964) Triglyceride Reference Range: Low Risk <150 Borderline 150- 199 High Risk 200-499 Very High Risk >=500Cholesterol Reference Range: Low Risk <200 Borderline 200-239 High Risk > 240HDL Cholesterol Reference Range: Low Risk >=60 High Risk <40LDL Cholesterol Reference Range: Optimal <100 Near Optimal 100-129 Borderline 130-159 High 160-189 Very High >=190CALCIUM, [id number] 06:02:00 Test Item Value Reference Range Comments CALCIUM IONIZED (BEAKER) (test mvsn=865) 0.84 mmol/L 1.12-1.27 PH, BLOOD (BEAKER) (test vtqn=8622) 7.40 POCT-GLUCOSE [id number] 23:04:00 Test Item Value Reference Range Comments POC-GLUCOSE METER (BEAKER) 92 mg/dL 70-[address] [facility] [address] [facility] (test lmzf=2841) [facility] [address] BASIC METABOLIC [id number] 16:03:00 Test Item Value Reference Range Comments SODIUM (BEAKER) (test 137 meq/L 136-145 xsjh=011) POTASSIUM (BEAKER) (test 4.1 meq/L 3.5-5.1 fgwv=476) CHLORIDE (BEAKER) (test 104 meq/L 98-107 umff=665) CO2 (BEAKER) (test 21 meq/L 22-29 itig=516) BLOOD UREA NITROGEN 14 mg/dL 7-21 (BEAKER) (test ajro=944) CREATININE (BEAKER) (test 0.85 mg/dL 0.57-1.25 dtuu=017) GLUCOSE RANDOM (BEAKER) 103 mg/dL 70-105 (test rvkd=337) CALCIUM (BEAKER) (test 9.0 mg/dL 8.4-10.2 jkdk=666) EGFR (BEAKER) (test 68 mL/min/1.73 sq m ESTIMATED GFR IS NOT xrov=6099) ACCURATE CREATININE CLEARANCE IN PREDICTING GLOMERULAR FILTRATION RATE. ESTIMATED GFR IS NOT APPLICABLE FOR DIALYSIS PATIENTS. CBC W/PLT COUNT & AUTO [id number] 15:58:00 Test Item Value Reference Range Comments WHITE BLOOD CELL COUNT (BEAKER) (test zpfs=203) 7.2 K/ L 3.5-10.5 RED BLOOD CELL COUNT (BEAKER) (test moew=054) 3.79 M/ L 3.93-5.22 HEMOGLOBIN (BEAKER) (test ifyb=225) 12.0 GM/DL 11.2-15.7 HEMATOCRIT (BEAKER) (test fjit=757) 37.8 % 34.1-44.9 MEAN CORPUSCULAR VOLUME (BEAKER) (test oayj=770) 99.7 fL 79.4-94.8 MEAN CORPUSCULAR HEMOGLOBIN (BEAKER) (test 31.7 pg 25.6-32.2 tmyt=514) MEAN CORPUSCULAR HEMOGLOBIN CONC (BEAKER) (test 31.7 GM/DL 32.2-35.5 bnvo=484) RED CELL DISTRIBUTION WIDTH (BEAKER) (test 14.5 % 11.7-14.4 ctuq=120) PLATELET COUNT (BEAKER) (test kkyf=888) 296 K/CU MM 150-450 MEAN PLATELET VOLUME (BEAKER) (test wvps=776) 9.0 fL 9.4-12.3 NUCLEATED RED BLOOD CELLS (BEAKER) (test 0 /100 WBC 0-0 ntgn=474) NEUTROPHILS RELATIVE PERCENT (BEAKER) (test 47 % sjhu=865) LYMPHOCYTES RELATIVE PERCENT (BEAKER) (test 42 % fbtp=274) MONOCYTES RELATIVE PERCENT (BEAKER) (test 8 % vesg=364) EOSINOPHILS RELATIVE PERCENT (BEAKER) (test 2 % rsjs=142) BASOPHILS RELATIVE PERCENT (BEAKER) (test 0 % gyvo=569) NEUTROPHILS ABSOLUTE COUNT (BEAKER) (test 3.41 K/ L 1.56-6.13 ldhr=395) LYMPHOCYTES ABSOLUTE COUNT (BEAKER) (test 3.01 K/ L 1.18-3.74 ikcr=964) MONOCYTES ABSOLUTE COUNT (BEAKER) (test 0.58 K/ L 0.24-0.36 gqbb=775) EOSINOPHILS ABSOLUTE COUNT (BEAKER) (test 0.17 K/ L 0.04-0.36 xnci=532) BASOPHILS ABSOLUTE COUNT (BEAKER) (test 0.03 K/ L 0.01-0.08 dmmr=778) IMMATURE GRANULOCYTES-RELATIVE PERCENT (BEAKER) 0 % 0-1 (test ylpo=4014) RAD, CHEST, 2 [id number] 15:19:00Reason for exam:->cpShould this be performed at the bedside?->NoFINAL REPORT Chest two views compared to November 14, 2017 Discussion: Lungs clear. Heart size normal. No effusion or pneumothorax. There are right shoulder degenerative changes. Widened left AC joint may reflect previous surgery or trauma. Signed: [place] Melani Verified Date/Time: 11/30/2017 15:19:59 Reading Location: [facility] C013W Consult Reading Room SINUS CULTURE + GRAM [id number] 08:42:00 Test Item Value Reference Range Comments CULTURE (BEAKER) (test nauk=2147) Clindamycin (test code=10) Erythromycin (test code=4) Linezolid (test code=40) Nitrofurantoin (test code=23) Oxacillin (test code=14) Rifampin (test code=43) Tetracycline (test code=2) Trimethoprim + Sulfamethoxazole (test code=47) Vancomycin (test code=13) CULTURE (BEAKER) (test 1+ Methicillin resistant aazl=0213) Staphylococcus aureus GRAM STAIN RESULT (BEAKER) <1+ WBCs (test tart=9557) GRAM STAIN RESULT (BEAKER) No organisms seen (test utkw=947949) No Normal respiratory batsheva presentHEPATIC FUNCTION [id number] 14:45:00 Test Item Value Reference Range Comments TOTAL PROTEIN (BEAKER) (test lidz=466) 7.1 gm/dL 6.0-8.3 ALBUMIN (BEAKER) (test eahn=4185) 3.7 g/dL 3.5-5.0 BILIRUBIN TOTAL (BEAKER) (test tvab=298) 0.3 mg/dL 0.2-1.2 BILIRUBIN DIRECT (BEAKER) (test chdi=195) 0.1 mg/dL 0.1-0.5 ALKALINE PHOSPHATASE (BEAKER) (test dmnc=459) 109 U/L 40-150 AST (SGOT) (BEAKER) (test sgnf=856) 18 U/L 5-34 ALT (SGPT) (BEAKER) (test zpvx=858) 9 U/L 6-55 BASIC METABOLIC [id number] 14:45:00 Test Item Value Reference Range Comments SODIUM (BEAKER) (test 137 meq/L 136-145 mfsf=638) POTASSIUM (BEAKER) (test 3.8 meq/L 3.5-5.1 bskm=613) CHLORIDE (BEAKER) (test 101 meq/L 98-107 nsqg=345) CO2 (BEAKER) (test 25 meq/L 22-29 ofnp=786) BLOOD UREA NITROGEN 16 mg/dL 7-21 (BEAKER) (test cqxt=590) CREATININE (BEAKER) (test 0.73 mg/dL 0.57-1.25 clym=361) GLUCOSE RANDOM (BEAKER) 89 mg/dL 70-105 (test msch=154) CALCIUM (BEAKER) (test 8.7 mg/dL 8.4-10.2 zzap=055) EGFR (BEAKER) (test 81 mL/min/1.73 sq m ESTIMATED GFR IS NOT mxxy=0016) ACCURATE CREATININE CLEARANCE IN PREDICTING GLOMERULAR FILTRATION RATE. ESTIMATED GFR IS NOT APPLICABLE FOR DIALYSIS PATIENTS. CBC W/PLT COUNT & AUTO [id number] 14:12:00 Test Item Value Reference Range Comments WHITE BLOOD CELL COUNT (BEAKER) (test szuv=663) 7.8 K/ L 3.5-10.5 RED BLOOD CELL COUNT (BEAKER) (test jmfj=616) 3.73 M/ L 3.93-5.22 HEMOGLOBIN (BEAKER) (test sepu=755) 11.7 GM/DL 11.2-15.7 HEMATOCRIT (BEAKER) (test irww=290) 36.4 % 34.1-44.9 MEAN CORPUSCULAR VOLUME (BEAKER) (test rohb=396) 97.6 fL 79.4-94.8 MEAN CORPUSCULAR HEMOGLOBIN (BEAKER) (test 31.4 pg 25.6-32.2 vsps=145) MEAN CORPUSCULAR HEMOGLOBIN CONC (BEAKER) (test 32.1 GM/DL 32.2-35.5 qaeo=443) RED CELL DISTRIBUTION WIDTH (BEAKER) (test 14.3 % 11.7-14.4 ykuk=423) PLATELET COUNT (BEAKER) (test ksvj=989) 291 K/CU MM 150-450 MEAN PLATELET VOLUME (BEAKER) (test lszf=319) 9.3 fL 9.4-12.3 NUCLEATED RED BLOOD CELLS (BEAKER) (test 0 /100 WBC 0-0 mczv=940) NEUTROPHILS RELATIVE PERCENT (BEAKER) (test 48 % utvl=906) LYMPHOCYTES RELATIVE PERCENT (BEAKER) (test 40 % llhv=283) MONOCYTES RELATIVE PERCENT (BEAKER) (test 8 % ykwx=578) EOSINOPHILS RELATIVE PERCENT (BEAKER) (test 3 % jkds=510) BASOPHILS RELATIVE PERCENT (BEAKER) (test 0 % gixq=095) NEUTROPHILS ABSOLUTE COUNT (BEAKER) (test 3.72 K/ L 1.56-6.13 xzut=159) LYMPHOCYTES ABSOLUTE COUNT (BEAKER) (test 3.13 K/ L 1.18-3.74 jzql=013) MONOCYTES ABSOLUTE COUNT (BEAKER) (test 0.64 K/ L 0.24-0.36 sarh=435) EOSINOPHILS ABSOLUTE COUNT (BEAKER) (test 0.20 K/ L 0.04-0.36 fbka=722) BASOPHILS ABSOLUTE COUNT (BEAKER) (test 0.03 K/ L 0.01-0.08 ogfa=191) IMMATURE GRANULOCYTES-RELATIVE PERCENT (BEAKER) 0 % 0-1 (test suwb=4454) RAD, CHEST, 2 [id number] 13:06:00Reason for Exam:->[id number] REPORT HISTORY : R05. Comparison: None Comment: Two views of the chest,PA and lateral, were obtained. The cardiac silhouette is within normal limits. There is no pleural effusion, pneumothorax or infiltrate. No lytic or blastic abnormalities. Fixation hardware is seen in the cervical spine. Multilevel degenerative disc changes of the thoracic spine are seen. Impression: No acute cardiothoracic abnormalities. Signed: Kelly Chapin MDReport Verified Date/Time: 11/14/2017 13:06:08 Reading Location: [address] Radiology Reading Room CT ABDOMEN AND PELVIS W/WOCLINICAL INDICATION: R50.9 Fever , unspecifiedMODALITY: [employer] [address] (Iterative dose reduction technique is used).TECHNIQUE: Helical imaging of the abdomen and pelvis is performed. Oral contrast is administered. 85 mls optiray are administered IV. Imaging performed prior to and after administration of contrast.Computed Tomography Dose Index: 86.4 mGy. IMPRESSION:1. No acute abnormality.2. Hepatomegaly with diffuse fatty infiltration.3. Gastric bypass postoperative changes with small hiatal hernia.4. Cholecystectomy.5. Hysterectomy.FINDINGS: COMPARISON: NoneThe liver is mildly enlarged and demonstrates diffuse fatty infiltration. No focal liver lesions are detected. Hepatic veins, portal venous system and biliary tree are normal. The gallbladder is surgically absent.A small hiatal hernia is noted. Postoperative changes consistent with gastric bypass are evident.The spleen is normal in size and contour. The pancreas demonstrates fatty atrophy. No pancreatic mass, pancreatic duct dilatation or peripancreatic edema is visible.Adrenal glands and kidneys are normal. There are no renal calculi, hydronephrosis or masses noted.Neither retrocrural nor retroperitoneal adenopathy is present. Vascular structures are within normal limits.No significant bowel pathology is noted. A few, scattered colonic diverticuli are noted without evidence of diverticulitis. The appendix is not clearly visualized, however there are no inflammatory changes in the right lower quadrant to suggest appendicitis. Omentum and mesentery are unremarkable.Abdominal wall is intact.No ascites visualized.No lytic or blastic osseous lesions are observed.The urinary bladder is unremarkable.The uterus is absent. No suspicious adnexal masses are present. No free fluid is present in the pelvis.No pelvic or inguinal lymphadenopathy is evident.PQRS 436: [id number] ( For official use only.)
--- OUTSIDE RECORDS SUMMARY | 2018-02-21 10:58 | XMS REPORT ---
:1955 Author Organization [facility] Care Team Providers Name Role Phone Deepthi Mcleod Provider Role Unavailable Allergies No Known Allergies Problems Problem Type Condition Code Onset Dates Condition Status Problem Allergic rhinitis due to pollen J30.1 Active Problem Nasal airway obstruction J34.89 Active Problem Cellulitis of face L03.211 Active Problem Arthralgia of bilateral M26.623 Active temporomandibular joint Problem Sinusitis - Chronic J32.8 Active Problem Sinusitis - Chronic J32.8 Active Problem Nasal congestion R09.81 Active Problem Methicillin susceptible B95.61 Active Staphylococcus aureus infection as the cause of diseases classified elsewhere Problem Cough R05 Active Problem Wheezing R06.2 Active Problem Hearing loss - Sensorineural H90.3 Active Bilateral Problem Obstructive sleep apnea G47.33 Active Medications No Known Medications Results No Known Results Summary Purpose [facility] Submission
--- OUTSIDE RECORDS SUMMARY | 2018-02-21 10:58 | XMS REPORT ---
:1955 Author Organization [facility] Care Team Providers Name Role Phone Deepthi [...] Medications Results No Known Results Summary Purpose [facility] Submission
--- NOTE | 2018-02-21 11:54 | EKG ---
Test Date: 2018-02-21 Test Time: 11:06:46 Sustainability Officer: YAYA MEASUREMENT RESULTS: Intervals: Rate: 82 IA: 188 QRSD: 128 QT: 410 QTc: 479 [place]: P: 33 IA: 188 QRS: -47 T: 71 INTERPRETIVE STATEMENTS: Normal sinus rhythm Left bundle branch block Abnormal ECG Compared to ECG 01/05/2018 05:22:37 Left bundle-branch block now present Left anterior fascicular block no longer present T-wave abnormality no longer present Electronically Signed On 02-21-18 11:53:57 CDT by Jj Sanchez
--- NOTE | 2018-02-21 12:06 | RAD REPORT ---
EXAM DESCRIPTION: RAD - Chest Single View - 02/21/2018 11:50 am CLINICAL HISTORY: Chest pain. COMPARISON: 01/05/2018 FINDINGS: Portable technique limits examination quality. The lungs are grossly clear. The heart is upper limit normal size. No displaced fractures.Cervical hodges rdware plate noted. IMPRESSION: No acute intrathoracic process suspected.
[2018-02-21 12:11] LABS: Absolute Lymphocytes (CBC) 2.8 K/uL (0.7-4.9); Absolute Monocytes 0.6 K/uL (0.1-1.3); Absolute Neutrophil 3.7 K/uL (1.8-8.0); Basophils % 1.2 % (0-1.3); Eosinophils % 3.1 % (0-4.4); Hematocrit 34.7 % (36.0-45.0); Lymphocytes % 37.7 % (15.3-44.8); MCH 30.9 pg (27.0-35.0); MCV 95.6 fL (80-100); MPV 7.8 fL (7.6-11.3); Monocytes % 8.5 % (3.3-12.3); Protime INR 0.96; RBC Red Blood Cell Count 3.63 M/uL (3.86-4.86)
[2018-02-21] MEDS ORDERED: FUROSEMIDE 100 MG/10 ML VIAL IV ONE (12:12)
[2018-02-21 13:49] LABS: Urine Blood TRACE (NEG); Urine Glucose NEGATIVE (NEG); Urine Protein NEGATIVE (NEG)
--- NOTE | 2018-02-21 15:17 | RAD REPORT ---
EXAM DESCRIPTION: CT - Chest For Pe Angio - 02/21/2018 2:46 pm CLINICAL HISTORY: Chest pain and shortness of breath since this morning COMPARISON: None. TECHNIQUE: Dynamically enhanced axial 3 mm thick images of the chest were obtained during administra tion of <100> mL Isovue 370 IV contrast. Coronal and oblique reconstruction images were generated and reviewed. Exam utilizes a protocol for optimal evaluation of pulmonary arterial tree. All CT scans are performed using dose optimization technique as appropriate and may include automated exposure control or mA/KV adjustment according to patient size. FINDINGS: A pulmonary embolus is not seen. A thoracic aortic aneurysm is not noted. A pleural effusion is not seen. A pericardial effusion is not seen. A lung consolidation is not present. IMPRESSION: Negative for a pulmonary embolism.
--- NOTE | 2018-02-21 15:27 | EDPHYS ---
Physician Documentation [facility] Name: Lara Liu Age: 62 yrs Sex: Female : 1955 Arrival Date: 02/21/2018 Time: 10:59 Bed 14 Private MD: out of town, doctor ED Physician Obey Marie HPI: 02/21 15:47 This 62 yrs old Female presents to ER via Ambulatory with complaints of Chest gs Pain, Abdominal Swelling. 15:47 The patient or guardian reports chest pain that is located primarily in the epigastric gs area. Onset: this morning. Associated signs and symptoms: Pertinent positives: shortness of breath. The chest pain is described as a heaviness. Duration: The patient or guardian reports multiple episodes, that wax and wane, with no pattern. Modifying factors: The symptoms are alleviated by nothing. the symptoms are aggravated by nothing. Severity of pain: At its worst the pain was mild in the emergency department the pain has resolved. main problem she said is increased edema legs and stomach area. Historical: - Allergies: : No Known Allergies; hj - Home Meds: 11:06 amitriptyline 25 mg Oral tab 1 tab once daily [Active]; c pap machine at home [Active]; hj carvedilol 6.25 mg Oral tab 1 tab 2 times per day [Active]; carvedilol 6.25 mg Oral tab 1 tab 2 times per day [Active]; Depakote ER 500 mg Oral Tb24 2 tabs twice a day [Active]; Lasix Oral once daily [Active]; levothyroxine 150 mcg tab 1 tab once daily [Active]; meloxicam 7.5 mg Oral tab 1 tab once daily [Active]; carvedilol 25 mg Oral tab 1 tab [Active]; phentermine 37.5 mg Oral cap 1 cap once daily [Active]; tramadol 50 mg Oral tab 1 tab every 6 hours [Active]; trazodone 50 mg Oral tab 1 tab nightly [Active]; venlafaxine 150 mg Oral cp24 1 cap once daily [Active]; glimepiride 1 mg Oral tab 1 tab once daily [Active]; - PMHx: 11:06 CHF; Diabetes - NIDDM; Hyperlipidemia; Hypertension; Hypothyroidism; Sleep Apnea; hj - PSHx: 11:06 None; hj - Immunization history:: Adult Immunizations up to date. - Social history:: Smoking status: Patient/guardian denies using tobacco, Patient/guardian denies using alcohol. ROS: 15:47 All other systems are negative. gs Exam: 15:47 Head/Face: Normocephalic, atraumatic. Eyes: Pupils equal round and reactive to light, gs extra-ocular motions intact. Lids and lashes normal. Conjunctiva and sclera are non-icteric and not injected. Cornea within normal limits. Periorbital areas with no swelling, redness, or edema. ENT: Nares patent. No nasal discharge, no septal abnormalities noted. Tympanic membranes are normal and external auditory canals are clear. Oropharynx with no redness, swelling, or masses, exudates, or evidence of obstruction, uvula midline. Mucous membranes moist. Neck: Trachea midline, no thyromegaly or masses palpated, and no cervical lymphadenopathy. Supple, full range of motion without nuchal rigidity, or vertebral point tenderness. No Meningismus. Chest/axilla: Normal chest wall appearance and motion. Nontender with no deformity. No lesions are appreciated. Cardiovascular: Regular rate and rhythm with a normal S1 and S2. No gallops, murmurs, or rubs. Normal PMI, no JVD. No pulse deficits. 15:47 Abdomen/GI: Soft, non-tender, with normal bowel sounds. No distension or tympany. No guarding or rebound. No evidence of tenderness throughout. Back: No spinal tenderness. No costovertebral tenderness. Full range of motion. Skin: Warm, dry with normal turgor. Normal color with no rashes, no lesions, and no evidence of cellulitis. MS/ Extremity: Pulses equal, no cyanosis. Neurovascular intact. Full, normal range of motion. Neuro: Awake and alert, GCS 15, oriented to person, place, time, and situation. Cranial nerves II-XII grossly intact. Motor strength 5/5 in all extremities. Sensory grossly intact. Cerebellar exam normal. Normal gait. 15:47 Constitutional: The patient appears alert, awake. 15:47 Cardiovascular: Edema: 2+ edema to level of left ankle and right ankle. 15:47 ECG was reviewed by the Attending Physician. 15:47 Respiratory: Breath sounds: decreased breath sounds, that are moderate, are located in both bases. Vital Signs: 11:07 Weight 136.08 kg; Height 5 ft. 4 in. (162.56 cm); Pain 8/10; hj 11:20 BP 151 / 87; Pulse 77; Resp 16; Temp 98.3; Pulse Ox 96% on R/A; Pain 8/10; ch 13:35 BP 171 / 89; Pulse 81; Resp 19; Pulse Ox 98% on R/A; mh5 14:14 BP 159 / 87; Pulse 80; Resp 22; Temp 97.8; Pulse Ox 99% on R/A; Pain 6/10; ch 15:36 BP 148 / 82; Pulse 74; Resp 15; Temp 98.3; Pulse Ox 96% on R/A; Pain 5/10; ch 11:07 Body Mass Index 51.49 (136.08 kg, 162.56 cm) hj MDM: 11:28 Patient medically screened. gs 15:47 Differential diagnosis: chest wall pain, congestive heart failure pneumonia, pulmonary gs embolus. Data reviewed: vital signs, nurses notes, and as a result, I will discharge patient. 02/21 11:29 Order name: BNP; Complete Time: 12:52 02/21 11:29 Order name: Basic Metabolic Panel; Complete Time: 12:52 02/21 11:29 Order name: CBC with Diff; Complete Time: 12:19 gs 02/21 11:29 Order name: Magnesium; Complete Time: 12:52 02/21 11:29 Order name: PT-INR; Complete Time: 12:19 02/21 11:29 Order name: Troponin (emerg Dept Use Only); Complete Time: 12:52 02/21 11:07 Order name: EKG; Complete Time: 11:08 hj 02/21 11:29 Order name: XRAY Chest (1 view); Complete Time: 12:19 gs 02/21 11:29 Order name: Cardiac monitoring; Complete Time: 12:05 gs 02/21 12:54 Order name: D-Dimer; Complete Time: 13:51 gs 02/21 13:26 Order name: Urine Dipstick--Ancillary (enter results); Complete Time: 13:51 ag 02/21 13:52 Order name: CT Chest For PE Angio; Complete Time: 15:25 gs 02/21 13:52 Order name: Troponin (emerg Dept Use Only); Complete Time: 15:07 02/21 11:29 Order name: IV Saline Lock; Complete Time: 12:07 02/21 11:29 Order name: Labs collected and sent; Complete Time: 12:42 02/21 11:29 Order name: O2 Per Protocol; Complete Time: 12:42 02/21 11:29 Order name: O2 Sat Monitoring; Complete Time: 12:42 02/21 11:29 Order name: Urine Dipstick-Ancillary (obtain specimen); Complete Time: 12:06 EC:47 Rate is 82 beats/min. Rhythm is regular. AK interval is normal. QRS interval is gs prolonged. T waves are Normal. No ST changes noted. Clinical impression: Abnormal EKG without significant change. Interpreted by me. Administered Medications: 12:16 Drug: Lasix 60 mg Route: IVP; Site: right forearm; 12:42 Follow up: Response: No adverse reaction; Marked relief of symptoms 14:19 Follow up: Response: No adverse reaction; Marked relief of symptoms Disposition: 02/21/18 15:27 Discharged to Home. Impression: Dyspnea. - Condition is Stable. - Discharge Instructions: Shortness of Breath, [id number]-[id number], Heart Failure, [id number]. - Work release form, Medication Reconciliation Form, Thank You Letter, Antibiotic Education, Prescription Opioid Use form. - Follow up: Private Physician; When: 2 - 3 days; Reason: Re-evaluation by your physician. Signatures: Dispatcher [employer] Danielle Menjivar RN RN Rowdy Cool RN RN Victorina Valenzuela [facility] Obey Marie MD MD Corrections: (The following items were deleted from the chart) 15:49 15:27 02/21/2018 15:27 Discharged to Home. Impression: Dyspnea. Condition is Stable. [facility] Forms are Medication Reconciliation Form, Thank You Letter, Antibiotic Education, Prescription Opioid Use. Follow up: Private Physician; When: 2 - 3 days; Reason: Re-evaluation by your physician.
--- NOTE | 2018-02-21 15:27 | ER ---
Nurse's Notes [facility] Name: Lara Liu Age: 62 yrs Sex: Female : 1955 Arrival Date: 02/21/2018 Time: 10:59 Bed 14 Private MD: out of town, doctor Diagnosis: Dyspnea Presentation: 02/21 11:03 Presenting complaint: Patient states: i was at work this morning when while walking and hj had sudden short of breath; pain 7/10; i noticed like my stomach is filled with fluids; hx of CHF;. Transition of care: patient was not received from another setting of care. Onset of symptoms was February 21, 2018. Initial Sepsis Screen: Does the patient meet any 2 criteria? No. Patient's initial sepsis screen is negative. Does the patient have a suspected source of infection? No. Patient's initial sepsis screen is negative. Care prior to arrival: None. 11:03 Method Of Arrival: Ambulatory 11:03 Acuity: CRIS 3 hj Triage Assessment: 11:06 General: Appears in no apparent distress. uncomfortable, obese, Behavior is calm, hj cooperative, appropriate for age. Pain: Complains of pain in chest. Cardiovascular: Capillary refill < 3 seconds Patient's skin is warm and dry. Historical: - Allergies: 11:06 No Known Allergies; hj - Home Meds: 11:06 amitriptyline 25 mg Oral tab 1 tab once daily [Active]; c pap machine at home [Active]; hj carvedilol 6.25 mg Oral tab 1 tab 2 times per day [Active]; carvedilol 6.25 mg Oral tab 1 tab 2 times per day [Active]; Depakote ER 500 mg Oral Tb24 2 tabs twice a day [Active]; Lasix Oral once daily [Active]; levothyroxine 150 mcg tab 1 tab once daily [Active]; meloxicam 7.5 mg Oral tab 1 tab once daily [Active]; carvedilol 25 mg Oral tab 1 tab [Active]; phentermine 37.5 mg Oral cap 1 cap once daily [Active]; tramadol 50 mg Oral tab 1 tab every 6 hours [Active]; trazodone 50 mg Oral tab 1 tab nightly [Active]; venlafaxine 150 mg Oral cp24 1 cap once daily [Active]; glimepiride 1 mg Oral tab 1 tab once daily [Active]; - PMHx: 11:06 CHF; Diabetes - NIDDM; Hyperlipidemia; Hypertension; Hypothyroidism; Sleep Apnea; hj - PSHx: 11:06 None; hj - Immunization history:: Adult Immunizations up to date. - Social history:: Smoking status: Patient/guardian denies using tobacco, Patient/guardian denies using alcohol. Screenin:07 Abuse screen: Denies threats or abuse. Denies injuries from another. Nutritional hj screening: No deficits noted. Tuberculosis screening: No symptoms or risk factors identified. Fall Risk Secondary diagnosis (15 points). Assessment: 11:06 Pain: Pain does not radiate. Pain began 4 hours ago. hj 11:40 Reassessment: Patient appears in no apparent distress at this time. Patient and/or ch family updated on plan of care and expected duration. Pain level reassessed. Patient is alert, oriented x 3, equal unlabored respirations, skin warm/dry/pink. General: Appears in no apparent distress. comfortable, Behavior is calm, cooperative, appropriate for age. Neuro: Level of Consciousness is awake, alert, obeys commands, Oriented to person, place, time, situation. Respiratory: Airway is patent Trachea midline Respiratory effort is even, unlabored, Respiratory pattern is regular, Breath sounds are coarse bilaterally. Breath sounds are diminished bilaterally. pt states she feels lilke she cannot take a deep breath in. GI: Abdomen is non-distended, obese, Bowel sounds present X 4 quads. Derm: Skin is pink, warm \T\ dry. 14:14 Reassessment: Patient appears in no apparent distress at this time. Patient and/or ch family updated on plan of care and expected duration. Pain level reassessed. Patient is alert, oriented x 3, equal unlabored respirations, skin warm/dry/pink. PT HAS URINATED VIA BSC 4 TIMES. PT TOLERATED MOVEMENT WELL. Patient states feeling better. Patient states symptoms have improved. 15:16 Reassessment: patient assisted onto bedside commode to urinate. ae1 15:22 Reassessment: Patient appears in no apparent distress at this time. Patient and/or ch family updated on plan of care and expected duration. Pain level reassessed. Patient is alert, oriented x 3, equal unlabored respirations, skin warm/dry/pink. Patient states feeling better. Patient states symptoms have improved. resps even and unlabored, no s/s of distress. pt verb understanding of waiting for ct results. pt given po ice chips. . 15:35 Reassessment: Patient appears in no apparent distress at this time. Patient and/or ch family updated on plan of care and expected duration. Pain level reassessed. Patient is alert, oriented x 3, equal unlabored respirations, skin warm/dry/pink. Patient states feeling better. Patient states symptoms have improved. erp in room discussing dx, discharge, and follow up care. . Vital Signs: 11:07 Weight 136.08 kg; Height 5 ft. 4 in. (162.56 cm); Pain 8/10; hj 11:20 BP 151 / 87; Pulse 77; Resp 16; Temp 98.3; Pulse Ox 96% on R/A; Pain 8/10; ch 13:35 BP 171 / 89; Pulse 81; Resp 19; Pulse Ox 98% on R/A; mh5 14:14 BP 159 / 87; Pulse 80; Resp 22; Temp 97.8; Pulse Ox 99% on R/A; Pain 6/10; ch 15:36 BP 148 / 82; Pulse 74; Resp 15; Temp 98.3; Pulse Ox 96% on R/A; Pain 5/10; ch 11:07 Body Mass Index 51.49 (136.08 kg, 162.56 cm) ED Course: 10:59 Patient arrived in ED. mr 10:59 out of town, doctor is Private Physician. mr 11:03 Rowdy Cool, RN is Primary Nurse. hj 11:05 Triage completed. hj 11:06 Arm band placed on right wrist. hj 11:07 Patient has correct armband on for positive identification. Placed in gown. Bed in low hj position. Side rails up X 1. mother repairer on. Pulse ox on. NIBP on. 11:07 Patient maintains SpO2 saturation greater than 95% on room air. hj 11:12 Obey Marie MD is Attending Physician. gs 11:19 EKG done, by telecommunications field technician. reviewed by Fidencio Ford MD. at1 11:39 Danielle Stout, RN is Primary Nurse. ch 11:40 Warm blanket given. ch 11:40 No provider procedures requiring assistance completed. ch 11:40 Inserted saline lock: 22 gauge in right forearm, using aseptic technique. Blood ch collected. 11:49 X-ray completed. Portable x-ray completed in exam room. Patient tolerated procedure sw well. 11:50 XRAY Chest (1 view) In Process Unspecified. EDMS 14:46 CT Chest For PE Angio In Process Unspecified. EDMS 19:30 IV discontinued, intact, bleeding controlled, No redness/swelling at site. Pressure ch dressing applied. Administered Medications: 12:16 Drug: Lasix 60 mg Route: IVP; Site: right forearm; ch 12:42 Follow up: Response: No adverse reaction; Marked relief of symptoms ch 14:19 Follow up: Response: No adverse reaction; Marked relief of symptoms ch Outcome: 15:27 Discharge ordered by . 15:45 Discharged to home via wheelchair. 15:45 Condition: improved 15:45 Discharge instructions given to patient, Instructed on discharge instructions, follow up and referral plans. medication usage, Demonstrated understanding of instructions, follow-up care. 15:49 Patient left the ED. 5 Signatures: Dispatcher [employer] EDMS Danielle Stout, Victorina Huertas RN, ch Shana, deputy fire chief EKG Tat1 Megan Roman Henry, RN RN Mike Montoya RN RN ae1 Victorina Valenzuela [facility] Obey Marie MD MD
[2018-02-21 16:06] VITALS: BP 148/82; TEMP 98.3; O2SAT 96
== END 2018-02-21 15:49 | disposition home or self-care (01) ==
LOC: ER 10:54
DX: R06.00 Dyspnea, unspecified (principal); I50.9 Heart failure, unspecified; I10 Essential (primary) hypertension; E11.9 Type 2 diabetes mellitus without complications; E03.9 Hypothyroidism, unspecified
CPT/HCPCS: 36415; 71045; 71275; 80048; 81003; 83735; 83880; 84484; 85025; 85379; 85610; 93005; 96374; 99285; Q9967

== ENCOUNTER 2019-03-29 12:11 | Inpatient (IN) | payer OTHER ==
--- OUTSIDE RECORDS SUMMARY | 2019-03-29 12:36 | XMS REPORT | Clinical Summary ---
:1955 Author Organization [facility] [employer] Address [address] [place] [address] Care Team Providers Name Role Phone Erasmo Mckenzie MD Primary Care Provider Allergies Active Allergy Reactions Severity Noted Date Comments Iodine Swelling 05/20/2016 Shrimp Swelling 05/20/2016 Medications Medication Sig Dispensed Refills Start Date End Date Status PHENTERMINE HCL Take by mouth. 0 Active (PHENTERMINE ORAL) traMADol (ULTRAM) 50 mg Take 50 mg by 0 Active tablet mouth every 6 (six) hours as needed for moderate pain. atorvastatin (LIPITOR) Take 10 mg by 0 Active 10 MG tablet mouth every evening. carvedilol (COREG) 6.25 Take 6.25 mg by 0 Active MG tablet mouth 2 (two) times a day with meals. furosemide (LASIX) 80 Take 80 mg by 0 Active MG tablet mouth daily. chlorproMAZINE Take 25 mg by 0 Active (THORAZINE) 25 MG mouth nightly. tablet divalproex (DEPAKOTE) Take 1,000 mg by 0 Active 500 MG EC tablet mouth nightly. levothyroxine Take 200 mcg by 0 Active (SYNTHROID, LEVOTHROID) mouth every 200 MCG tablet morning. metFORMIN (GLUCOPHAGE) Take 500 mg by 0 Active 500 MG tablet mouth 2 (two) times a day with meals. potassium chloride Take 10 mEq by 0 Active (K-DUR,KLOR-CON) 10 MEQ mouth daily. CR tablet VENLAFAXINE HCL Take 150 mg by 0 Active (VENLAFAXINE ORAL) mouth daily. MULTIVITAMIN ORAL Take 1 tablet by 0 Active mouth daily. Active Problems Problem Noted Date S/P cervical spinal fusion 06/03/2016 Social History Tobacco Use Types Packs/Day Years Used Date Never Smoker Smokeless Tobacco: Never Used Tobacco Cessation: Counseling Given: No Alcohol Use Drinks/Week oz/Week Comments No Sex Assigned at Date Recorded Not on file Job Start Date Occupation Industry Not on file Not on file Not on file Travel History Travel Start Travel End No recent travel history available. Last Filed Vital Signs Not on file Plan of Treatment Health Maintenance Due Date Last Done Comments BREAST CANCER SCREENING 2004 COLONOSCOPY SCREENING 2004 SHINGLES VACCINES (#1) 2004 INFLUENZA VACCINE 05/17/2019 Implants Implanted Type [facility] Manager Device Shelf Model / Identifier Expiration Serial / Date Lot Bone Matriz Osteocel Pro Small - [id number] - [id number] Human Anterior: NUVASIVE 09/13/2020 [id number] / Implanted: Qty: 1 on 06/03/2016 by Lucio Arzate MD Tissue Spine [id number] / Implants Cervical [id number] Distraction Pin- 12mm - [id number] IMPLANT Anterior: NUVASIVE SPINE [id number] / Implanted: 06/03/2016 (Quantity not on file) DEVICES Spine [id number] / Cervical Gradient Plus , Temporary Tacks - [id number] IMPLANT Anterior: NUVASIVE SPINE 06/02/2026 [id number] / Implanted: 06/03/2016 (Quantity not on file) DEVICES Spine [id number] / Cervical [id number] Spacer Spinal Cntord Med 5mm - [id number] Spinal Anterior: NUVASIVE 2025 [id number] / Implanted: 06/03/2016 (Quantity not on file) Implants Spine [id number] / Cervical [id number] Screw Spinal Fxd Slf-Tap 4x15mm [place] Revolution Acp - [id number] Spinal Anterior: NUVASIVE [id number] / Implanted: 06/03/2016 (Quantity not on file) Implants Spine [id number] / Cervical Screw Spinal Brenden Slf-Tap 4x15mm Lindon Revolution Acp - [id number] Spinal Anterior: NUVASIVE [id number] / Implanted: 06/03/2016 (Quantity not on file) Implants Spine [id number] / Cervical Plate Spinal Revltn 1lvl 20mm [place] Acp - [id number] Spinal Anterior: NUVASIVE 06/02/2026 [id number] / Implanted: 06/03/2016 (Quantity not on file) Implants Spine [id number] / Cervical [id number] Results Not on fileafter 03/28/2018 Insurance Payer Benefit Plan / Subscriber ID Effective Dates Phone Address Type Group MEDICARE MEDICARE PART A xxxxxxxxxx 2013-Present [place], [place] Medicare AND B BCBS BCBS CHOICE xxxxxxxxxxxx 2014-Present PPO PPO/[employer] PPO Advance Directives Patient has advance care planning documents on file. For more information, please contact:Braxton [address]ett[address] [place] [address]
--- OUTSIDE RECORDS SUMMARY | 2019-03-29 12:37 | XMS REPORT | Clinical Summary ---
:1955 Author Organization [facility] Address [address] [place] [address] Care Team Providers Name Role Phone Unavailable Primary Care Provider Unavailable Allergies Active Allergy Reactions Severity Noted Date Comments Iodine Swelling 05/20/2016 Shrimp Swelling 05/20/2016 Medications Medication Sig Dispensed Refills Start Date End Date Status traZODone (DESYREL) Take 50 mg by 0 Active 50 MG tablet mouth nightly. montelukast Take 10 mg by 0 Active (SINGULAIR) 10 mg mouth every tablet morning. glimepiride (AMARYL) Take 1 mg by 0 Active 1 MG tablet mouth every evening. furosemide (LASIX) Take 20 mg by 0 Active 40 MG tablet mouth every morning . amitriptyline Take 25 mg by 0 Active (ELAVIL) 25 MG mouth tablet nightly. carvedilol (COREG) Take 6.25 mg 0 Active 6.25 MG tablet by mouth 2 (two) times daily. divalproex Take 1,000 mg 0 Active (DEPAKOTE) 500 MG EC by mouth 2 tablet (two) times daily . atorvastatin Take 10 mg by 0 Active (LIPITOR) 10 MG mouth daily. tablet levothyroxine Take 150 mcg 0 Active (SYNTHROID, by mouth LEVOTHROID) 150 MCG Every morning tablet on an empty stomach. potassium chloride Take 10 mEq 0 Active (KLOR-CON) 10 MEQ CR by mouth tablet every morning. venlafaxine Take 150 mg 0 Active (EFFEXOR-XR) 150 MG by mouth 24 hr capsule daily. meloxicam (MOBIC) Take 15 mg by 0 Active 7.5 MG tablet mouth daily . ferrous gluconate Take 324 mg 0 Active (FERGON) 324 MG by mouth tablet daily with breakfast. cholecalciferol, Take 1,000 0 Active vitamin D3, 2,000 Units by unit Tab mouth daily. ondansetron (ZOFRAN) Take by 0 Active 8 MG tablet mouth. ciprofloxacin HCl Take 500 mg 0 Active (CIPRO) 500 MG by mouth. tablet empagliflozin Take 10 mg by 0 Active (JARDIANCE) 10 mg mouth daily. tablet oxybutynin Take 1 tablet 30 tablet 0 03/03/2019 04/02/2019 Active (DITROPAN-XL) 10 MG (10 mg total) 24 hr tablet by mouth daily for 30 days. cyanocobalamin Take 1,000 0 03/03/2019 Discontinued (VITAMIN B-12) 1000 mcg by mouth MCG tablet daily . calcium Take 1 tablet 30 tablet 0 12/04/2017 12/04/2018 carbonate-vitamin D3 by mouth (OSCAL-D) 500 daily. mg(1,250mg) -200 unit per tablet Active Problems Problem Noted Date Sepsis, due to unspecified organism 02/27/2019 Bowel and bladder incontinence 02/27/2019 DM (diabetes mellitus), type 2 02/27/2019 Essential hypertension 02/27/2019 Low back pain 02/27/2019 Mastitis of left breast unrelated to or 11/30/2017 Diabetes mellitus 11/30/2017 KWAKU (obstructive sleep apnea) 11/30/2017 Thyroid disease 11/30/2017 Morbid obesity 11/30/2017 Essential hypertension 11/30/2017 Encounters Date Type Specialty Care Team Description 02/27/2019 - Hospital Encounter General Internal Andrew Richardson Sepsis, due to unspecified organism (HCC) (Primary Dx); 03/03/2019 Medicine MD Anibal Cauda equina syndrome (HCC); Samir, Bowel and bladder incontinence MD Davin 02/27/2019 Orders Only General Internal Medicine 02/27/2019 Travel 07/05/2018 Office Visit Wound Care Briseyda Santiago MD 06/29/2018 Office Visit Wound Care Briseyda Santiago MD 06/29/2018 Orders Only Wound Care George, Wound of left Carolyn RN breast, subsequent encounter (Primary Dx) after 03/28/2018 Social History Tobacco Use Types Packs/Day Years Used Date Never Smoker Smokeless Tobacco: Never Used Tobacco Cessation: Counseling Given: No Alcohol Use Drinks/Week oz/Week Comments No Sex Assigned at Date Recorded Not on file Job Start Date Occupation Industry Not on file Not on file Not on file Travel History Travel Start Travel End No recent travel history available. Last Filed Vital Signs Vital Sign Reading Time Taken Blood Pressure 119/56 03/03/2019 2:56 PM CDT Pulse 59 03/03/2019 2:56 PM CDT Temperature 35.6 C (96.1 F) 03/03/2019 2:56 PM CDT Respiratory Rate 19 03/03/2019 2:56 PM CDT Oxygen Saturation 98% 03/03/2019 2:56 PM CDT Inhaled Oxygen Concentration 21% 02/28/2019 12:00 AM CDT Weight 127 kg (280 lb) 02/27/2019 11:13 AM CDT Height 162.6 cm (5' 4") 02/27/2019 11:13 AM CDT Body Mass Index 48.06 02/27/2019 11:13 AM CDT Plan of Treatment Not on file Procedures Procedure Name Priority Date/Time Associated Comments Diagnosis POCT-GLUCOSE METER Routine 03/03/2019 11:46 Results for this AM CDT procedure are in the results section. POCT-GLUCOSE METER Routine 03/03/2019 7:23 Results for this AM CDT procedure are in the results section. POCT-GLUCOSE METER Routine 03/02/2019 9:10 Results for this PM CDT procedure are in the results section. MR SPINE LUMBAR Routine 03/02/2019 8:30 Results for this WITHOUT IV CONTRAST PM CDT procedure are in the results section. POCT-GLUCOSE METER Routine 03/02/2019 6:28 Results for this PM CDT procedure are in the results section. REPORT OF PROCEDURE - 03/02/2019 5:21 ENDOSCOPY SCAN PM CDT POCT-GLUCOSE METER Routine 03/02/2019 11:56 Results for this AM CDT procedure are in the results section. POCT-GLUCOSE METER Routine 03/02/2019 6:54 Results for this AM CDT procedure are in the results section. POCT-GLUCOSE METER Routine 03/01/2019 8:15 Results for this PM CDT procedure are in the results section. CT SPINE LUMBAR STAT 03/01/2019 7:44 Results for this WITHOUT IV CONTRAST PM CDT procedure are in the results section. POCT-GLUCOSE METER Routine 03/01/2019 4:34 Results for this PM CDT procedure are in the results section. POCT-GLUCOSE METER Routine 03/01/2019 11:44 Results for this AM CDT procedure are in the results section. POCT-GLUCOSE METER Routine 03/01/2019 7:11 Results for this AM CDT procedure are in the results section. CBC W/PLT COUNT & AUTO Routine 03/01/2019 5:00 Results for this DIFFERENTIAL AM CDT procedure are in the results section. MAGNESIUM Routine 03/01/2019 5:00 Results for this AM CDT procedure are in the results section. CBC W/PLT COUNT & AUTO Routine 03/01/2019 5:00 Results for this DIFFERENTIAL AM CDT procedure are in the results section. CALCIUM, IONIZED Routine 03/01/2019 5:00 Results for this AM CDT procedure are in the results section. BASIC METABOLIC PANEL Routine 03/01/2019 5:00 Results for this (7) AM CDT procedure are in the results section. LACTIC ACID, VENOUS STAT 03/01/2019 5:00 Results for this AM CDT procedure are in the results section. PERIPHERAL VASCULAR 02/28/2019 9:10 REPORT - SCAN PM CDT POCT-GLUCOSE METER Routine 02/28/2019 8:26 Results for this PM CDT procedure are in the results section. POCT-GLUCOSE METER Routine 02/28/2019 4:51 Results for this PM CDT procedure are in the results section. POCT-GLUCOSE METER Routine 02/28/2019 11:53 Results for this AM CDT procedure are in the results section. POCT-GLUCOSE METER Routine 02/28/2019 7:41 Results for this AM CDT procedure are in the results section. CBC W/PLT COUNT & AUTO Routine 02/28/2019 4:14 Results for this DIFFERENTIAL AM CDT procedure are in the results section. T4, FREE Routine 02/28/2019 4:14 Results for this AM CDT procedure are in the results section. VITAMIN B12 AND FOLATE Routine 02/28/2019 4:14 Results for this AM CDT procedure are in the results section. TSH/FREE T4 IF Routine 02/28/2019 4:14 Results for this INDICATED AM CDT procedure are in the results section. HEMOGLOBIN A1C Routine 02/28/2019 4:14 Results for this AM CDT procedure are in the results section. MAGNESIUM Routine 02/28/2019 4:14 Results for this AM CDT procedure are in the results section. CBC W/PLT COUNT & AUTO Routine 02/28/2019 4:14 Results for this DIFFERENTIAL AM CDT procedure are in the results section. PHOSPHORUS Routine 02/28/2019 4:14 Results for this AM CDT procedure are in the results section. CALCIUM, IONIZED Routine 02/28/2019 4:14 Results for this AM CDT procedure are in the results section. BASIC METABOLIC PANEL Routine 02/28/2019 4:14 Results for this (7) AM CDT procedure are in the results section. LACTIC ACID, VENOUS STAT 02/28/2019 4:14 Results for this AM CDT procedure are in the results section. POCT-GLUCOSE METER Routine 02/27/2019 9:21 Results for this PM CDT procedure are in the results section. VENOUS DOPPLER LEG, Routine 02/27/2019 7:45 Results for this LEFT PM CDT procedure are in the results section. LACTIC ACID, VENOUS STAT 02/27/2019 6:45 Results for this PM CDT procedure are in the results section. POCT-GLUCOSE METER Routine 02/27/2019 5:07 Results for this PM CDT procedure are in the results section. LACTIC ACID, VENOUS STAT 02/27/2019 3:04 Results for this PM CDT procedure are in the results section. PROCALCITONIN STAT 02/27/2019 1:40 Results for this PM CDT procedure are in the results section. BLOOD CULTURE STAT 02/27/2019 1:40 Results for this PM CDT procedure are in the results section. BLOOD CULTURE STAT 02/27/2019 1:40 Results for this PM CDT procedure are in the results section. US RENAL LIMITED STAT 02/27/2019 1:19 Results for this PM CDT procedure are in the results section. US PELVIS STAT 02/27/2019 1:05 Results for this PM CDT procedure are in the results section. ECG 12-LEAD Routine 02/27/2019 11:58 AM CDT Procedure Note - Interface, External Ris In - 02/27/2019 1:43 PM CDT Ventricular Rate 63 BPM Atrial Rate 63 BPM P-R Interval 198 ms QRS Duration 124 ms Q-T Interval 428 ms QTC Calculation(Bazett) 437 ms P Phoenix 38 degrees R Phoenix -50 degrees T Phoenix 49 degrees Normal sinus rhythm Left anterior fascicular block Left ventricular hypertrophy with QRS widening Nonspecific T wave abnormality Abnormal ECG When compared with ECG of 25-NOV-2003 12:44, Left anterior fascicular block is now Present ST now depressed in Inferior leads Nonspecific T wave abnormality now evident in Lateral leads ECG 12-LEAD STAT 02/27/2019 11:58 AM Results for this CDT procedure are in the results section. URINALYSIS W/ REFLEX STAT 02/27/2019 11:54 AM Results for this URINE CULTURE CDT procedure are in the results section. CBC W/PLT COUNT & AUTO STAT 02/27/2019 11:44 AM Results for this DIFFERENTIAL CDT procedure are in the results section. KETONE, BLOOD STAT 02/27/2019 11:44 AM Results for this CDT procedure are in the results section. LACTIC ACID, VENOUS STAT 02/27/2019 11:44 AM Results for this CDT procedure are in the results section. HEPATIC FUNCTION PANEL STAT 02/27/2019 11:44 AM Results for this CDT procedure are in the results section. BASIC METABOLIC PANEL STAT 02/27/2019 11:44 AM Results for this (7) CDT procedure are in the results section. CBC W/PLT COUNT & AUTO STAT 02/27/2019 11:44 AM Results for this DIFFERENTIAL CDT procedure are in the results section. ED ECG INTERPRETATION Routine 02/27/2019 11:33 AM Results for this CDT procedure are in the results section. CRITICAL CARE Routine 02/27/2019 11:33 AM Results for this CDT procedure are in the results section. WOUND CULTURE + GRAM Routine 06/29/2018 4:53 PM Wound of left Results for this STAIN CDT breast, subsequent procedure are in encounter the results section. after 03/28/2018 Results POC-Glucose meter (03/03/2019 11:46 AM CDT)Only the most recent of16 resultswithin the time period is included. POC-Glucose Meter 117 (H)Comment: TESTED AT 70 - 110 mg/dL [facility] [address] [facility] [id number] Specimen Blood Performing Organization Address City/State/Zipcode Phone Number [facility] [address] [place] [phone] CENTER MR spine lumbar without IV contrast (03/02/2019 8:30 PM CDT) Specimen Narrative Performed At FINAL REPORT [facility] MR, SPINE, LUMBAR, WITHOUT CONTRAST INDICATION: Low back pain, cauda equina syndrome suspected COMPARISON: None TECHNIQUE: Multiplanar, multisequence MR images of the lumbar spine without contrast. FINDINGS: Numbering: Last fully formed disc space is designated L5-S1. Spinal cord: The conus medullaris is normal is size, signal intensity, and position, terminating at theL1 level. Osseous structures: The lumbar spine demonstrates normal alignment without scoliosis or listhesis. Marrow signal intensity is somewhat variant with Modic changes at multiple endplate levels. There is no endplate disc protrusion or disruption. No aggressive osseous lesions are identified. Discs:There is multilevel disc dessication with associated loss of disc space height. Evaluation of the individual levels demonstrates: L1/L2: Asymmetric left paracentral and subarticular disc herniation creating mild canal narrowing. No foraminal stenosis. L2/L3: Endplate and disc degenerative changes with central disc protrusion. Mild canal narrowing. Mild bilateral foraminal stenosis. L3/L4: Broad disc bulge with mild canal narrowing. Mild bilateral foraminal stenosis. L4/L5: Broad disc bulge and facet arthropathy create moderate canal narrowing. Moderate bilateral foraminal stenosis. L5/S1: Advanced degenerative endplate changes with mild canal narrowing. Moderate to severe bilateral foraminal stenosis. Paraspinal soft tissues: Paraspinal soft tissues and visible retroperitoneal structures are unremarkable. Superficial midline edema is noted dorsally. IMPRESSION: Multilevel degenerative changes of the lumbar spine, most prominent atL2-3 with central disc protrusion creating mild narrowing. There is moderate to severe bilateral foraminal stenosis at L5-S1 as a result of degenerative facet and endplate changes. Signed: JR Elaine, Francisco CHAVEZ Report Verified Date/Time:03/02/2019 20:59:13 Reading Location: [facility] Radiology Reading Room Procedure Note Interface, External Ris In - 03/02/2019 9:01 PM CDT FINAL REPORT MR, SPINE, LUMBAR, WITHOUT CONTRAST INDICATION: Low back pain, cauda equina syndrome suspected COMPARISON: None TECHNIQUE: Multiplanar, multisequence MR images of the lumbar spine without contrast. FINDINGS: Numbering: Last fully formed disc space is designated L5-S1. Spinal cord: The conus medullaris is normal is size, signal intensity, and position, terminating at the L1 level. Osseous structures: The lumbar spine demonstrates normal alignment without scoliosis or listhesis. Marrow signal intensity is somewhat variant with Modic changes at multiple endplate levels. There is no endplate disc protrusion or disruption. No aggressive osseous lesions are identified. Discs: There is multilevel disc dessication with associated loss of disc space height. Evaluation of the individual levels demonstrates: L1/L2: Asymmetric left paracentral and subarticular disc herniation creating mild canal narrowing. No foraminal stenosis. L2/L3: Endplate and disc degenerative changes with central disc protrusion. Mild canal narrowing. Mild bilateral foraminal stenosis. L3/L4: Broad disc bulge with mild canal narrowing. Mild bilateral foraminal stenosis. L4/L5: Broad disc bulge and facet arthropathy create moderate canal narrowing. Moderate bilateral foraminal stenosis. L5/S1: Advanced degenerative endplate changes with mild canal narrowing. Moderate to severe bilateral foraminal stenosis. Paraspinal soft tissues: Paraspinal soft tissues and visible retroperitoneal structures are unremarkable. Superficial midline edema is noted dorsally. IMPRESSION: Multilevel degenerative changes of the lumbar spine, most prominent at L2-3 with central disc protrusion creating mild narrowing. There is moderate to severe bilateral foraminal stenosis at L5-S1 as a result of degenerative facet and endplate changes. Signed: JR Elaine, Francisco CHAVEZ Report Verified Date/Time: 03/02/2019 20:59:13 Reading Location: [facility] Radiology Reading Room Performing Organization Address City/State/Zipcode Phone Number [employer] RIS EKG-SCANNED (03/02/2019 5:21 PM CDT) Narrative Performed At CT spine lumbar without IV contrast (03/01/2019 7:44 PM CDT) Specimen Narrative Performed At FINAL REPORT [facility] CT, SPINE, LUMBAR, WO CONTRAST INDICATION: bowel and bladder incontinent COMPARISON: None TECHNIQUE: Contiguous noncontrast axial images of the lumbar spine are obtained. Computer reformatted coronal and sagittal images are also provided. Axial images are available in both bone and soft tissue algorithm. DOSE REDUCTION: Dose modulation, iterative reconstruction, and/or weight-based adjustment of the mA/kV was utilized to reduce the radiation dose to as low as reasonably achievable. FINDINGS: The examination is limited by body habitus, creating photon starvation artifact throughout the imaged volume. There is no evidence of fracture or subluxation. Alignment is normal. Vertebral height and integrity is normal. Degenerative endplate changes are noted in most lumbar levels with associated decreased disc height. Disc height loss is most severe at L1-2 and L5-S1. Vacuum disc phenomenon noted at L2-3, L4-5 and L5-S1. Endplate and discogenic changes create at least moderate canal narrowing at L1-2. Severe bilateral foraminal stenosis is noted at L5-S1. Superficial soft tissues reveal midline and paramedian central edema and deep soft tissue calcifications which may reflect sequela of prior trauma or sustained recumbency. IMPRESSION: Limited by body habitus. No fracture or traumatic osseous abnormality is present in the lumbar spine. At least moderate canal narrowing in the central zone at L1-L2 as a result of discogenic and degenerative endplate changes. Severe bilateral foraminal stenosis at L5-S1. Signed: JR Elaine, Francisco CHAVEZ Report Verified Date/Time:03/01/2019 19:49:57 Reading Location: [address] Neuro Reading Room Procedure Note Interface, External Ris In - 03/01/2019 7:[address] PM CD[address] FINAL REPORT CT, SPINE, LUMBAR, WO CONTRAST INDICATION: bowel and bladder incontinent COMPARISON: None TECHNIQUE: Contiguous noncontrast axial images of the lumbar spine are obtained. Computer reformatted coronal and sagittal images are also provided. Axial images are available in both bone and soft tissue algorithm. DOSE REDUCTION: Dose modulation, iterative reconstruction, and/or weight-based adjustment of the mA/kV was utilized to reduce the radiation dose to as low as reasonably achievable. FINDINGS: The examination is limited by body habitus, creating photon starvation artifact throughout the imaged volume. There is no evidence of fracture or subluxation. Alignment is normal. Vertebral height and integrity is normal. Degenerative endplate changes are noted in most lumbar levels with associated decreased disc height. Disc height loss is most severe at L1-2 and L5-S1. Vacuum disc phenomenon noted at L2-3, L4-5 and L5-S1. Endplate and discogenic changes create at least moderate canal narrowing at L1-2. Severe bilateral foraminal stenosis is noted at L5-S1. Superficial soft tissues reveal midline and paramedian central edema and deep soft tissue calcifications which may reflect sequela of prior trauma or sustained recumbency. IMPRESSION: Limited by body habitus. No fracture or traumatic osseous abnormality is present in the lumbar spine. At least moderate canal narrowing in the central zone at L1-L2 as a result of discogenic and degenerative endplate changes. Severe bilateral foraminal stenosis at L5-S1. Signed: JR Elaine, Francisco CHAVEZ Report Verified Date/Time: 03/01/2019 19:49:57 Reading Location: [facility] [id number] Neuro Reading Room Performing Organization Address City/[facility]/Zipcode Phone Number RIS Calcium, Ionized (03/01/2019 5:00 AM CDT)Only the most recent of2 resultswithin the time period is included. Calcium, Ion 1.06 (L) 1.12 - 1.27 mmol/L [facility] pH, Blood 7.37 [facility] Specimen Blood Performing Organization Address City/[facility]/Zipcode Phone Number [facility] [address] [place] [address] CENTER CBC with platelet count + automated diff (03/01/2019 5:00 AM CDT)Only the most recent of3 resultswithin the time period is included. WBC 6.2 3.5 - 10.5 K/L [facility] RBC 3.57 (L) 3.93 - 5.22 M/L [facility] Hemoglobin 11.0 (L) 11.2 - 15.7 GM/DL [facility] Hematocrit 36.2 34.1 - 44.9 % [facility] MCV 101.4 (H) 79.4 - 94.8 fL [facility] MCH 30.8 25.6 - 32.2 pg [facility] MCHC 30.4 (L) 32.2 - 35.5 GM/DL [facility] RDW 16.2 (H) 11.7 - 14.4 % [facility] Platelets 222 150 - 450 K/CU MM [facility] MPV 9.5 9.4 - 12.3 fL [facility] nRBC 0 0 - 0 /100 WBC [facility] % Neutros 43 % [facility] % Lymphs 45 % [facility] % Monos 9 % [facility] % Eos 3 % [facility] % Baso 1 % [facility] # Neutros 2.63 1.56 - 6.13 K/L [facility] # Lymphs 2.75 1.18 - 3.74 K/L [facility] # Monos 0.55 (H) 0.24 - 0.36 K/L [facility] # Eos 0.18 0.04 - 0.36 K/L [facility] # Baso 0.03 0.01 - 0.08 K/L [facility] Immature 0 0 - 1 % [facility] Granulocytes-[facility] MEDICAL CENTER Specimen Blood Performing Organization Address City/State/Zipcout Phone Number [facility] [address] [place] [address] CENTER Lactic acid, venous, Daily (03/01/2019 5:00 AM CDT)Only the most recent of5 resultswithin the time period is included. Lactate, Venous 1.1 0.5 - 2.2 mmol/L [facility] Specimen Blood Performing Organization Address City/State/Zipcode Phone Number [facility] [address] [place], [place] [phone] CENTER Magnesium (03/01/2019 5:00 AM CDT)Only the most recent of2 resultswithin the time period is included. Magnesium 2.1 1.6 - 2.6 mg/dL [facility] Specimen Blood Performing Organization Address City/[facility]/Zipcode Phone Number [facility] [address] [place], [place] [phone] [place] Basic Metabolic Panel (03/01/2019 5:00 AM CDT)Only the most recent of3 resultswithin the time period is included. Sodium 141 136 - 145 meq/L [facility] Potassium 4.3 3.5 - 5.1 meq/L [facility] Chloride 110 (H) 98 - 107 meq/L [facility] CO2 25 22 - 29 meq/L [facility] BUN 16 7 - 21 mg/dL [facility] Creatinine 0.71 0.57 - 1.25 mg/dL [facility] Glucose 112 (H) 70 - 105 mg/dL [facility] Calcium 8.4 8.4 - 10.2 mg/dL [facility] EGFR 83Comment: ESTIMATED GFR IS mL/min/1.73 sq m [facility] NOT ACCURATE CREATININE [facility] CENTER CLEARANCE IN PREDICTING GLOMERULAR FILTRATION RATE. ESTIMATED GFR IS NOT APPLICABLE FOR DIALYSIS PATIENTS. Specimen Blood Performing Organization Address City/[facility]/Zipcode Phone Number [address] [address] [phone] [place] PERIPHERAL VASCULAR REPORT - SCAN (02/28/2019 9:10 PM CDT) Narrative Performed At Vitamin B12 and Folate (02/28/2019 4:14 AM CDT) Vitamin B12 1,226 (H) 213 - 816 pg/mL [facility] Folate 14.8 >=7.0 ng/mL [facility] Specimen Blood Performing Organization Address City/[facility]/Zipcode Phone Number [address] [address] [place] TSH/Free T4 If Indicated (02/28/2019 4:14 AM CDT) TSH 5.10 (H) 0.35 - 4.94 uIU/mL [facility] Specimen Blood Performing Organization Address City/[facility]/Zipcode Phone Number [address] [address] [place] T4, free (02/28/2019 4:14 AM CDT) Free T4 1.00 0.70 - 1.48 ng/dL [facility] [place] Specimen Blood Performing Organization Address City/[facility] Phone Number [address] [address] C[place] Phosphorus (02/28/2019 4:14 AM CDT) Phosphorus 4.2 2.3 - 4.7 mg/dL [facility] [place] Specimen Blood Performing Organization Address City/[facility] Phone Number [address] [address] [place] Hemoglobin A1c (02/28/2019 4:14 AM CDT) Hemoglobin A1C 6.9 (H) 4.3 - 6.1 % [facility] [place] Specimen Blood Performing Organization Address City/[facility] Phone Number [address] [address] [phone] [place] Venous doppler leg, left (02/27/2019 7:45 PM CDT) Ejection Fraction [facility] C[facility] Specimen Impressions Performed At [facility] Left Impression 1. There is no deep venous obstruction in the common femoral, profunda femoral, femoral, popliteal, posterior tibial or peroneal veins. 2. There is no superficial venous obstruction in the great saphenous vein. Conclusions Summary Venous duplex imaging and compression of the left lower extremity were performed. The veins were adequately visualized. The left venous system was patent and compressible with no evidence of thrombus. The venous Doppler waveforms were phasic with respiration . Signature Velocities are measured in cm/s ; Diameters are measured in cm Narrative Performed At PV LAB - Lower Extremities DVT Study [facility] Demographics Patient LARA Espinoza Date of Study 02/27/2019 Age 63 Visit [id number] GenderFemale Date of 1955 Referring [facility], Room Number 918 Physician Tax Compliance Agent Ha León MD Procedure Type of Study: Veins: Lower Extremities DVT Study, VENOUS DOPPLER LEG, LEFT. Indications for Study:Left Leg Pain and Cystitis. Patient Status:Routine. Study Location:Vascular Lab. Technical Quality:Adequate visualization. Risk Factors History of Disease + +----+ + !Diagnosis !Date!Comments ! + +----+ + !History/Risk Factors: !!HTN, KWAKU, DM, Morbid obesity! + +----+ + Procedure Note Interface, External Ris In - 02/28/2019 12:11 PM CDT [facility] - Lower Extremities DVT Study Demographics Patient Name LARA LIU Date of Study 02/27/2019 Age 63 Visit Number [id number] Gender Female Accession Number [id number] Date of 1955 Referring Samir Jin, Room Number 918 Physician Tax Compliance Agent Teja Worley Interpreting Leonie Carbajal [facility] Physician Procedure Type of Study: Veins: Lower Extremities DVT Study, VENOUS DOPPLER LEG, LEFT. Indications for Study:Left Leg Pain and Cystitis. Patient Status:Routine. Study Location:Vascular Lab. Technical Quality:Adequate visualization. Risk Factors History of Disease + +----+ + !Diagnosis !Date!Comments ! + +----+ + !History/Risk Factors: ! !HTN, KWAKU, DM, Morbid obesity ! + +----+ + Impressions Left Impression 1. There is no deep venous obstruction in the common femoral, profunda femoral, femoral, popliteal, posterior tibial or peroneal veins. 2. There is no superficial venous obstruction in the great saphenous vein. Conclusions Summary Venous duplex imaging and compression of the left lower extremity were performed. The veins were adequately visualized. The left venous system was patent and compressible with no evidence of thrombus. The venous Doppler waveforms were phasic with respiration . Signature Velocities are measured in cm/s ; Diameters are measured in cm Performing Organization Address [facility] Phone Number [facility] Procalcitonin (02/27/2019 1:40 PM CDT) Procalcitonin 0.05 (H) <0.05 ng/mL [facility] Specimen Blood Narrative Performed At SEPSIS RISK (ng/mL) [facility] Low:0.05-0.50 Intermediate: 0.51-2.00 High: >=2.01 Performing Organization Address [facility] Phone Number [facility] [address] [place] [address] [phone] CENTER Blood Culture - Routine (Left Venipuncture) (02/27/2019 1:40 PM CDT)Only the most recent of2 resultswithin the time period is included. Result No growth in 5 days [facility] Specimen Blood Performing Organization Address City/State/Zipcode Phone Number [facility] [address] [place] [address] CENTER US renal limited (02/27/2019 1:19 PM CDT) Specimen Narrative Performed At FINAL REPORT GE RIS INDICATION: Urinary tract infection (cystitis). COMPARISON: None. TECHNIQUE: Renal ultrasound exam limited. Pelvic ultrasound exam. FINDINGS / IMPRESSION: Right kidney measures 13.1 x 5.8 x 5.6 cm. Left kidney measures 13.7 x 6.2 x 6.0 cm. Cortical thickness appears normal in both kidneys. No hydronephrosis, renal mass, or renal stone demonstrated. Arterial and venous flow demonstrated in both renal aakash. Bladder not visualized. Patient is status post hysterectomy. Signed: Ra Luciano MD Report Verified Date/Time:02/27/2019 14:19:25 Reading Location: [address] Ultrasound Reading Room Procedure Note Interface, External Ris In - 02/27/2019 2:21 PM CDT FINAL REPORT INDICATION: Urinary tract infection (cystitis). COMPARISON: None. TECHNIQUE: Renal ultrasound exam limited. Pelvic ultrasound exam. FINDINGS / IMPRESSION: Right kidney measures 13.1 x 5.8 x 5.6 cm. Left kidney measures 13.7 x 6.2 x 6.0 cm. Cortical thickness appears normal in both kidneys. No hydronephrosis, renal mass, or renal stone demonstrated. Arterial and venous flow demonstrated in both renal aakash. Bladder not visualized. Patient is status post hysterectomy. Signed: Ra Luciano MD Report Verified Date/Time: 02/27/2019 14:19:25 Reading Location: [facility] P006 Ultrasound Reading Room Performing Organization Address City/[facility]/Zipcode Phone Number [employer] RIS US pelvis complete (02/27/2019 1:05 PM CDT) Specimen Narrative Performed At FINAL REPORT LOCK8 INDICATION: Urinary tract infection (cystitis). COMPARISON: None. TECHNIQUE: Renal ultrasound exam limited. Pelvic ultrasound exam. FINDINGS / IMPRESSION: Right kidney measures 13.1 x 5.8 x 5.6 cm. Left kidney measures 13.7 x 6.2 x 6.0 cm. Cortical thickness appears normal in both kidneys. No hydronephrosis, renal mass, or renal stone demonstrated. Arterial and venous flow demonstrated in both renal aakash. Bladder not visualized. Patient is status post hysterectomy. Signed: Ra Luciano MD Report Verified Date/Time:02/27/2019 14:19:25 Reading Location: [address] Ultrasound Reading Room Procedure Note Interface, External Ris In - 02/27/2019 2:21 PM CDT FINAL REPORT INDICATION: Urinary tract infection (cystitis). COMPARISON: None. TECHNIQUE: Renal ultrasound exam limited. Pelvic ultrasound exam. FINDINGS / IMPRESSION: Right kidney measures 13.1 x 5.8 x 5.6 cm. Left kidney measures 13.7 x 6.2 x 6.0 cm. Cortical thickness appears normal in both kidneys. No hydronephrosis, renal mass, or renal stone demonstrated. Arterial and venous flow demonstrated in both renal aakash. Bladder not visualized. Patient is status post hysterectomy. Signed: Ra Luciano MD Report Verified Date/Time: 02/27/2019 14:19:25 Reading Location: [address] Ultrasound Reading Room Performing Organization Address City/State/Zipcode Phone Number [employer] RIS ECG 12 lead (02/27/2019 11:58 AM CDT) Specimen Narrative Performed At Ventricular Rate 63 BPM GE MUSE Atrial Rate 63 BPM P-R Interval 198 ms QRS Duration 124 ms Q-T Interval 428 ms QTC Calculation(Bazett) 437 ms P [place] 38 degrees R Phoenix -50 degrees T [place] 49 degrees Normal sinus rhythm Left anterior fascicular block Left ventricular hypertrophy with QRS widening Poor R wave progression Nonspecific T wave abnormality Abnormal ECG When compared with ECG of 25-NOV-2003 12:44, Left anterior fascicular block is now Present QRS width has increased There are now voltage criteria for LVH Poor R wave progression now seen Confirmed by MD TASHI, CHARITY ([id number]) on 02/27/2019 2:37:30 PM Procedure Note Interface, External Ris In - 02/27/2019 2:37 PM CDT Ventricular Rate 63 BPM Atrial Rate 63 BPM P-R Interval 198 ms QRS Duration 124 ms Q-T Interval 428 ms QTC Calculation(Bazett) 437 ms P [place] 38 degrees R Phoenix -50 degrees T [place] 49 degrees Normal sinus rhythm Left anterior fascicular block Left ventricular hypertrophy with QRS widening Poor R wave progression Nonspecific T wave abnormality Abnormal ECG When compared with ECG of 25-NOV-2003 12:44, Left anterior fascicular block is now Present QRS width has increased There are now voltage criteria for LVH Poor R wave progression now seen Confirmed by MD TASHI, CHARITY ([id number]) on 02/27/2019 2:37:30 PM Performing Organization Address City/State/Zipcode Phone Number GE MUSE Urinalysis w/Microscopic + Reflex to Culture (02/27/2019 11:54 AM CDT) Color, UA Yellow [facility] Clarity, UA Clear [facility] Specific [place], UA 1.032 1.001 - 1.035 [facility] pH, UA 5.5 5.0 - 8.0 [facility] Protein, UA Negative Negative [facility] Glucose, UA >1000 mg/dL (A) Negative [facility] Ketones, UA Negative Negative [facility] Bilirubin, UA Negative Negative [facility] Blood, UA Negative Negative [facility] Nitrite, UA Negative Negative [facility] Leukocytes, UA Negative Negative [facility] Urobilinogen, UA 0.2 0.2 - 1.0 mg/dL [facility] RBC, UA <1 /HPF [facility] WBC, UA 1 /HPF [facility] Squam Epithel, UA 7 /HPF [facility] Specimen Source [facility] Specimen Urine Performing Organization Address City/[facility] Phone Number [address] [address] [place] Ketones, blood (02/27/2019 11:44 AM CDT) Ketones, Blood 0.1 <0.4 mmol/L [facility] Specimen Blood Performing Organization Address [facility] [place] [address] [phone] [place] Hepatic function panel (02/27/2019 11:44 AM CDT) Protein, Total 7.4 6.0 - 8.3 gm/dL [facility] Albumin 3.8 3.5 - 5.0 g/dL [facility] Total Bilirubin 0.4 0.2 - 1.2 mg/dL [facility] Bilirubin, Direct 0.2 0.1 - 0.5 mg/dL [facility] Alkaline Phosphatase 93 40 - 150 U/L [facility] AST 44 (H) 5 - 34 U/L [facility] ALT 15 6 - 55 U/L [facility] Specimen Blood Performing Organization Address City/[facility] Phone Number [address] [address] [place] ECG/EKG Interpretation (02/27/2019 11:33 AM CDT) Narrative Performed At Andrew Richardson MD 02/27/20191:45 PM ECG/EKG Interpretation Date/Time: 02/27/2019 1:44 PM Performed by: Andrew Richardson MD Authorized by: Andrew Richardson MD The ECG was interpreted by ED physician. The ECG is interpreted as sinus rhythm. Rate is normal rate. Abnormal conduction noted: LAFB. Clinical Impression: non-specific ECG CRITICAL CARE (02/27/2019 11:33 AM CDT) Narrative Performed At Andrew Richardson MD 02/27/20191:45 PM Critical Care Performed by: Andrew Richardson MD Authorized by: Andrew Richardson MD Total critical care time: 40 minutes Critical care was necessary to treat or prevent imminent or life-threatening deterioration of the following conditions: sepsis. Critical care was time spent personally by me on the following activities: ordering and review of laboratory studies, pulse oximetry, re-evaluation of patient's condition, discussions with primary provider and examination of patient. Wound culture + gram stain (06/29/2018 4:53 PM CDT) Result 1+ Skin batsheva [facility] Gram Stain Result No WBCs [facility] Gram Stain Result No organisms seen [facility] Specimen Wound Performing Organization Address City/State/Zipcode Phone Number [address] [address] CENTER after 03/28/2018 Insurance Payer Benefit Plan / Subscriber ID Type Phone Address Group BLUE CROSS/BLUE BCBS OS xxxxxxxxxxxx PPO [phone] [address] SHIELD POS/PP[place] [address] [employer] - MGD CARE [employer] HMO POS xxxxxxxxxx HMO/POS QPOS Advance Directives For more information, please contact:[address] [phone] Code Status Date Activated Date Inactivated Comments Full Code 02/27/2019 12:49 PM 03/03/2019 8:46 PM This code status was determined by: Patient Full Code 11/30/2017 8:33 PM 12/03/2017 4:55 PM This code status was determined by: Patient
--- OUTSIDE RECORDS SUMMARY | 2019-03-29 12:38 | XMS REPORT ---
[...] Start Date End Date Status Dosage Bactrim [facility] 36762986099 400-80 MG Orally Nov 15, Nov 29, Active 1 tablet Once a day 2017 2017 Results No Known Results Summary Purpose CARDFREEinicalpluriSelect Submission
--- OUTSIDE RECORDS SUMMARY | 2019-03-29 12:38 | XMS REPORT ---
:1955 [facility] Providers Name Role Phone [...] End Status Dosage System Date Date Bactroban [facility] 42317419107 2 % Nasally Oct Active 1 Twice a day 23, 20, application 2017 2017 to affected area Bactrim ND 70995305653 400-80 MG Oct Active 1 tablet Orally Once a 30, 13, day 2017 2017 Mupirocin [facility] 36291551252 2 % Externally Active 1 Three times a application day to affected area Levothyroxine Sodium ND 00879014310 200 MCG Orally Active 1 tablet Once a day Ferrous Gluconate ND 55463858181 324 (38 Fe) MG Active not defined Orally Augmentin [facility] 04350038520 Active not defined ProAir HFA [facility] 28221478402 108 (90 Base) Active 2 puffs as MCG/ACT needed Inhalation every 4 hrs Trazodone HCl ND 85003152246 150 MG Orally Active 1 tablet at Once a day bedtime Hydrochlorothiazide ND 69652152843 50 MG Orally Active 1 tablet Once a day Medrol (Ranjeet) [facility] 65569665094 4 MG Orally Aug Active as directed 2016 Metformin HCl ND 46910998217 500 MG Orally Active 1 tablet Twice a day with meals Pravastatin Sodium ND 88159942106 40 MG Orally Active 1 tablet Once a day Depakote ER ND 16994436497 500 MG Orally Active not defined Bactrim [facility] 34167697938 400-80 MG Oct Active 1 tablet Orally Once a , , day 2017 2017 Medrol (Ranjeet) [facility] 32723049783 4 MG Orally Oct Active as directed 2015 Results No Known Results Summary Purpose eClinicalWorks Submission
--- OUTSIDE RECORDS SUMMARY | 2019-03-29 12:38 | XMS REPORT ---
:1955 [facility] Providers Name Role Phone [...] End Status Dosage System Date Date Bactroban [facility] 43412266760 2 % Nasally Oct Active 1 Twice a day , , application 2017 2017 to affected area Medrol (Ranjeet) ND 41318329535 4 MG Orally Oct Active as directed 2015 Ferrous Gluconate ND 40740035043 324 (38 Fe) MG Active not defined Orally Pravastatin Sodium ND 94405129834 40 MG Orally Active 1 tablet Once a day ProAir HFA ND 90579469064 108 (90 Base) Active 2 puffs as MCG/ACT needed Inhalation every 4 hrs Medrol (Ranjeet) ND 31289302914 4 MG Orally Aug Active as directed 2016 Depakote ER ND 23524200290 500 MG Orally Active not defined Mupirocin ND 50136851820 2 % Externally Active 1 Three times a application day to affected area Hydrochlorothiazide ND 24112643376 50 MG Orally Active 1 tablet Once a day Levothyroxine Sodium [facility] 49314976241 200 MCG Orally Active 1 tablet Once a day Trazodone HCl [facility] 17781073182 150 MG Orally Active 1 tablet at Once a day bedtime Augmentin [facility] 34029776584 Active not defined Bactrim [facility] 52192636518 400-80 MG Oct Active 1 tablet Orally Once a 2017 Bactrim [facility] 94186697542 400-80 MG Oct Active 1 tablet Orally Once a , 2017 Metformin HCl [facility] 17863116737 500 MG Orally Active 1 tablet Twice a day with meals Results No Known Results Summary Purpose eClinicalWorks Submission
--- OUTSIDE RECORDS SUMMARY | 2019-03-29 12:38 | XMS REPORT ---
:1955 [facility] Address [address] [place] [place] [address] Care Team Providers Name Role Phone ISRRAEL GAONA Unavailable Unavailable AILYN SPRING Unavailable Unavailable Payers Payer Name Policy Type Policy Number Effective Date Expiration Date Problems This patient has no known problems. Allergies, Adverse Reactions, Alerts Allergy Allergy Status Severity Reaction(s) Onset Inactive Treating Comments Name Type Date Date Clinician IODINE DA Active U 2003-05 CONTRAST - 00:00:0 0 No Known DA Active U 2003-05 Drug - Allergies 00:00:0 0 No Known DA Active U 2003-05 Food - Allergies 00:00:0 0 No Known DA Active U 2003-05 Other - Allergies 00:00:0 0 iodine DA Active U 1997-05 00:00:0 0 Medications This patient has no known medications. Results Test Description Test Time Test Comments Text Results Atomic Results Result Comments BLOOD CULTURE 2019-03-04 20:01:00 Test Item Value Reference Range Comments CULTURE (BEAKER) (test ghwy=9976) No growth in 5 days BLOOD [id number] 20:01:00 Test Item Value Reference Range Comments CULTURE (BEAKER) (test ltrs=5818) No growth in 5 days POCT-GLUCOSE [id number] 11:57:00 Test Item Value Reference Range Comments POC-GLUCOSE METER (BEAKER) 117 mg/dL 70-[address] [facility] [address] (test ipnk=5748) [facility] [address] POCT-GLUCOSE [id number] 07:57:00 Test Item Value Reference Range Comments POC-GLUCOSE METER (BEAKER) 110 mg/dL 70-[address] [facility] [address] [facility] (test dsdq=7414) [facility] [address] POCT-GLUCOSE [id number] 21:11:00 Test Item Value Reference Range Comments POC-GLUCOSE METER (BEAKER) 100 mg/dL 70-110 TESTED AT [place] [id number] [facility] (test gpof=0723) [facility] [address] MR, SPINE, LUMBAR, WITHOUT [id number] 20:59:00FINAL REPORT MR, SPINE, LUMBAR, WITHOUT CONTRAST INDICATION: Low back pain, cauda equina syndrome suspected COMPARISON: None TECHNIQUE: Multiplanar, multisequence MR images of the lumbar spine without contrast. FINDINGS: Numbering: Last fully formed disc space is designated L5-S1. Spinal cord: The conus medullaris is normal is size, signal intensity, and position, terminatingat the L1 level. Osseous structures: The lumbar spine demonstrates normal alignment without scoliosis or listhesis. Marrow signal intensity is somewhat variant with Modic changes at multiple endplatelevels. There is no endplate disc protrusion or [...] result of degenerative facet and endplate changes. Signed : JR Henry Robert MDReport Verified Date/Time: 03/02/2019 20:59:13 Reading Location: [facility] Radiology Reading Room POCT-GLUCOSE [id number] 18 :37:00 Test Item Value Reference Range Comments POC-GLUCOSE METER (BEAKER) 130 mg/dL 70-110 TESTED AT [address] (test jtxs=2285) [facility] [address] POCT-GLUCOSE [id number] 12:03:00 Test Item Value Reference Range Comments POC-GLUCOSE METER (BEAKER) 105 mg/dL 70-110 TESTED AT [address] (test sctu=6013) [facility] [address] POCT-GLUCOSE [id number] 06:55:00 Test Item Value Reference Range Comments POC-GLUCOSE METER (BEAKER) 126 mg/dL 70-110 TESTED AT [address] (test qdij=2468) [facility] [address] POCT-GLUCOSE [id number] 20:31:00 Test Item Value Reference Range Comments POC-GLUCOSE METER (BEAKER) 98 mg/dL 70-110 TESTED AT [address] (test wrmc=9596) [facility] [address] CT, SPINE, LUMBAR, WO [id number] 19:49:00FINAL REPORT CT, SPINE, LUMBAR, WO CONTRAST INDICATION: [...] create at least moderate canal narrowing at L1- 2. Severe bilateral foraminal stenosis is noted at L5-S1. Superficialsoft tissues reveal midline and paramedian central edema and deep soft tissue calcifications which may reflect sequela of prior trauma or sustained recumbency. IMPRESSION: Limited by body habitus. Nofracture or traumatic osseous abnormality is present in the lumbar spine. At least moderate canal narrowing in the central zone at L1-L2 as a result of discogenic and degenerative endplate changes. Severe bilateral foraminal stenosis at L5-S1. Signed: JR Henry Robert MDReport Verified Date/Time: 03/01/2019 19:49: 57 Reading Location: [address] Neuro Reading Room POCT-GLUCOSE [id number] 16: 35:00 Test Item Value Reference Range Comments POC-GLUCOSE METER (BEAKER) 172 mg/dL 70-110 TESTED AT [address] (test kazg=0524) [place] [id number] POCT-GLUCOSE [id number] 11:56:00 Test Item Value Reference Range Comments POC-GLUCOSE METER (BEAKER) 202 mg/dL 70-110 TESTED AT [address] (test ieos=0544) [place] [id number] POCT-GLUCOSE [id number] 07:34:00 Test Item Value Reference Range Comments POC-GLUCOSE METER (BEAKER) 135 mg/dL 70-110 TESTED AT [address] (test xchr=7323) [place] [id number] CALCIUM, [id number] 06:34:00 Test Item Value Reference Range Comments CALCIUM IONIZED (BEAKER) (test fhty=014) 1.06 mmol/L 1.12-1.27 PH, BLOOD (BEAKER) (test ddvb=2165) 7.37 [id number] 05:46:00 Test Item Value Reference Range Comments MAGNESIUM (BEAKER) (test irps=823) 2.1 mg/dL 1.6-2.6 BASIC METABOLIC [id number] 05:46:00 Test Item Value Reference Range Comments SODIUM (BEAKER) (test 141 meq/L 136-145 jzrk=065) POTASSIUM (BEAKER) (test 4.3 meq/L 3.5-5.1 crua=993) CHLORIDE (BEAKER) (test 110 meq/L 98-107 nsit=881) CO2 (BEAKER) (test 25 meq/L 22-29 xrpv=824) BLOOD UREA NITROGEN 16 mg/dL 7-21 (BEAKER) (test fvit=645) CREATININE (BEAKER) (test 0.71 mg/dL 0.57-1.25 fjcc=985) GLUCOSE RANDOM (BEAKER) 112 mg/dL 70-105 (test fpdr=107) CALCIUM (BEAKER) (test 8.4 mg/dL 8.4-10.2 kevg=057) EGFR (BEAKER) (test 83 mL/min/1.73 sq m ESTIMATED GFR IS NOT hbnz=8008) ACCURATE CREATININE CLEARANCE IN PREDICTING GLOMERULAR FILTRATION RATE. ESTIMATED GFR IS NOT APPLICABLE FOR DIALYSIS PATIENTS. CBC W/PLT COUNT & AUTO [id number] 05:29:00 Test Item Value Reference Range Comments WHITE BLOOD CELL COUNT (BEAKER) (test ojla=867) 6.2 K/ L 3.5-10.5 RED BLOOD CELL COUNT (BEAKER) (test ybyk=767) 3.57 M/ L 3.93-5.22 HEMOGLOBIN (BEAKER) (test knxa=310) 11.0 GM/DL 11.2-15.7 HEMATOCRIT (BEAKER) (test vodx=599) 36.2 % 34.1-44.9 MEAN CORPUSCULAR VOLUME (BEAKER) (test unuv=656) 101.4 fL 79.4-94.8 MEAN CORPUSCULAR HEMOGLOBIN (BEAKER) (test 30.8 pg 25.6-32.2 wovt=756) MEAN CORPUSCULAR HEMOGLOBIN CONC (BEAKER) (test 30.4 GM/DL 32.2-35.5 mdtf=389) RED CELL DISTRIBUTION WIDTH (BEAKER) (test 16.2 % 11.7-14.4 vqio=281) PLATELET COUNT (BEAKER) (test wzuq=236) 222 K/CU MM 150-450 MEAN PLATELET VOLUME (BEAKER) (test ppmg=338) 9.5 fL 9.4-12.3 NUCLEATED RED BLOOD CELLS (BEAKER) (test 0 /100 WBC 0-0 vvwy=688) NEUTROPHILS RELATIVE PERCENT (BEAKER) (test 43 % fcny=961) LYMPHOCYTES RELATIVE PERCENT (BEAKER) (test 45 % xmcd=638) MONOCYTES RELATIVE PERCENT (BEAKER) (test 9 % krii=038) EOSINOPHILS RELATIVE PERCENT (BEAKER) (test 3 % rimo=782) BASOPHILS RELATIVE PERCENT (BEAKER) (test 1 % zvfu=237) NEUTROPHILS ABSOLUTE COUNT (BEAKER) (test 2.63 K/ L 1.56-6.13 qceo=979) LYMPHOCYTES ABSOLUTE COUNT (BEAKER) (test 2.75 K/ L 1.18-3.74 qloe=823) MONOCYTES ABSOLUTE COUNT (BEAKER) (test 0.55 K/ L 0.24-0.36 zesz=561) EOSINOPHILS ABSOLUTE COUNT (BEAKER) (test 0.18 K/ L 0.04-0.36 ggwe=136) BASOPHILS ABSOLUTE COUNT (BEAKER) (test 0.03 K/ L 0.01-0.08 bqlp=151) IMMATURE GRANULOCYTES-RELATIVE PERCENT (BEAKER) 0 % 0-1 (test qada=2962) LACTIC ACID, [id number] 05:29:00 Test Item Value Reference Range Comments LACTATE BLOOD VENOUS (2) (BEAKER) (test 1.1 mmol/L 0.5-2.2 mfvw=2155) POCT-GLUCOSE [id number] 20:48:00 Test Item Value Reference Range Comments POC-GLUCOSE METER (BEAKER) 109 mg/dL 70-110 TESTED AT [address] (test twzp=8612) [place] [address] POCT-GLUCOSE [id number] 16:53:00 Test Item Value Reference Range Comments POC-GLUCOSE METER (BEAKER) 117 mg/dL 70-110 TESTED AT [address] (test bnil=4735) [place] [address] POCT-GLUCOSE [id number] 11:55:00 Test Item Value Reference Range Comments POC-GLUCOSE METER (BEAKER) 173 mg/dL 70-110 TESTED AT [address] (test unbf=1867) [place] [address] POCT-GLUCOSE [id number] 08:46:00 Test Item Value Reference Range Comments POC-GLUCOSE METER (BEAKER) 120 mg/dL 70-110 TESTED AT [address] (test pavk=8660) [place] [address] HEMOGLOBIN [id number] 07:05:00 Test Item Value Reference Range Comments HEMOGLOBIN A1C (BEAKER) (test towo=345) 6.9 % 4.3-6.1 T4, [id number] 06:32:00 Test Item Value Reference Range Comments FREE T4 (BEAKER) (test jhno=140) 1.00 ng/dL 0.70-1.48 TSH/FREE T4 IF [id number] 05:26:00 Test Item Value Reference Range Comments THYROID STIMULATING HORMONE (BEAKER) (test 5.10 uIU/mL 0.35-4.94 swgc=244) VITAMIN B12 AND [id number] 05:20:00 Test Item Value Reference Range Comments VITAMIN B12 (BEAKER) (test gvod=772) 1226 pg/mL 213-816 FOLATE (BEAKER) (test fnqn=401) 14.8 ng/mL >=7.0 BASIC METABOLIC [id number] 05:17:00 Test Item Value Reference Range Comments SODIUM (BEAKER) (test 141 meq/L 136-145 homb=072) POTASSIUM (BEAKER) (test 4.0 meq/L 3.5-5.1 aomh=485) CHLORIDE (BEAKER) (test 109 meq/L 98-107 koxn=639) CO2 (BEAKER) (test 24 meq/L 22-29 ztiv=374) BLOOD UREA NITROGEN 21 mg/dL 7-21 (BEAKER) (test jckj=601) CREATININE (BEAKER) (test 0.78 mg/dL 0.57-1.25 nyek=472) GLUCOSE RANDOM (BEAKER) 106 mg/dL 70-105 (test wdsa=172) CALCIUM (BEAKER) (test 7.8 mg/dL 8.4-10.2 xdkk=846) EGFR (BEAKER) (test 74 mL/min/1.73 sq m ESTIMATED GFR IS NOT rvtw=6339) ACCURATE CREATININE CLEARANCE IN PREDICTING GLOMERULAR FILTRATION RATE. ESTIMATED GFR IS NOT APPLICABLE FOR DIALYSIS PATIENTS. CALCIUM, [id number] 05:14:00 Test Item Value Reference Range Comments CALCIUM IONIZED (BEAKER) (test mzan=302) 0.93 mmol/L 1.12-1.27 PH, BLOOD (BEAKER) (test rgkl=7481) 7.49 [id number] 04:59:00 Test Item Value Reference Range Comments PHOSPHORUS (BEAKER) (test lkwp=686) 4.2 mg/dL 2.3-4.7 [id number] 04:59:00 Test Item Value Reference Range Comments MAGNESIUM (BEAKER) (test ktjc=902) 2.0 mg/dL 1.6-2.6 LACTIC ACID, [id number] 04:55:00 Test Item Value Reference Range Comments LACTATE BLOOD VENOUS (2) (BEAKER) (test 1.8 mmol/L 0.5-2.2 luzu=0294) CBC W/PLT COUNT & AUTO [id number] 04:35:00 Test Item Value Reference Range Comments WHITE BLOOD CELL COUNT (BEAKER) (test xrtr=899) 7.0 K/ L 3.5-10.5 RED BLOOD CELL COUNT (BEAKER) (test jsib=059) 3.60 M/ L 3.93-5.22 HEMOGLOBIN (BEAKER) (test tqpe=337) 11.1 GM/DL 11.2-15.7 HEMATOCRIT (BEAKER) (test rgtv=609) 36.6 % 34.1-44.9 MEAN CORPUSCULAR VOLUME (BEAKER) (test jthh=072) 101.7 fL 79.4-94.8 MEAN CORPUSCULAR HEMOGLOBIN (BEAKER) (test 30.8 pg 25.6-32.2 gdwo=931) MEAN CORPUSCULAR HEMOGLOBIN CONC (BEAKER) (test 30.3 GM/DL 32.2-35.5 cwsz=756) RED CELL DISTRIBUTION WIDTH (BEAKER) (test 16.3 % 11.7-14.4 zewu=089) PLATELET COUNT (BEAKER) (test pypa=144) 248 K/CU MM 150-450 MEAN PLATELET VOLUME (BEAKER) (test yaat=545) 9.2 fL 9.4-12.3 NUCLEATED RED BLOOD CELLS (BEAKER) (test 0 /100 WBC 0-0 lblu=940) NEUTROPHILS RELATIVE PERCENT (BEAKER) (test 45 % tnrd=095) LYMPHOCYTES RELATIVE PERCENT (BEAKER) (test 44 % qfbv=257) MONOCYTES RELATIVE PERCENT (BEAKER) (test 8 % rjdp=843) EOSINOPHILS RELATIVE PERCENT (BEAKER) (test 3 % fbfw=808) BASOPHILS RELATIVE PERCENT (BEAKER) (test 0 % vgqk=199) NEUTROPHILS ABSOLUTE COUNT (BEAKER) (test 3.11 K/ L 1.56-6.13 rahq=887) LYMPHOCYTES ABSOLUTE COUNT (BEAKER) (test 3.08 K/ L 1.18-3.74 gzfl=672) MONOCYTES ABSOLUTE COUNT (BEAKER) (test 0.53 K/ L 0.24-0.36 sxku=266) EOSINOPHILS ABSOLUTE COUNT (BEAKER) (test 0.22 K/ L 0.04-0.36 gwzm=986) BASOPHILS ABSOLUTE COUNT (BEAKER) (test 0.03 K/ L 0.01-0.08 izci=028) IMMATURE GRANULOCYTES-RELATIVE PERCENT (BEAKER) 0 % 0-1 (test orbr=2908) POCT-GLUCOSE [id number] 21:40:00 Test Item Value Reference Range Comments POC-GLUCOSE METER (BEAKER) 133 mg/dL 70-110 TESTED AT [address] (test pxtm=4467) [facility] [address] LACTIC ACID, [id number] 19:18:00 Test Item Value Reference Range Comments LACTATE BLOOD VENOUS (2) (BEAKER) (test 3.6 mmol/L 0.5-2.2 glga=4271) POCT-GLUCOSE [id number] 18:17:00 Test Item Value Reference Range Comments POC-GLUCOSE METER (BEAKER) 95 mg/dL 70-110 TESTED AT [address] (test runl=9178) [facility] [address] LACTIC ACID, [id number] 15:26:00 Test Item Value Reference Range Comments LACTATE BLOOD VENOUS (2) 1.7 mmol/L 0.5-2.2 Specimen slightly hemolyzed (BEAKER) (test jpxz=1260) [id number] 14:38:00 Test Item Value Reference Range Comments PROCALCITONIN (BEAKER) (test divu=5241) 0.05 ng/mL <0.05 SEPSIS RISK (ng/mL)Low: 0.05-0.50Intermediate: 0.51-2.00High: & gt;=2.01U/S, [id number] 14:19:00Reason for exam:->CYSTITISFINAL REPORT INDICATION:Urinary tract infection (cystitis). COMPARISON : None.TECHNIQUE: Renal ultrasound exam limited.Pelvic ultrasound exam. FINDINGS / IMPRESSION:Right kidney measures 13.1 x 5.8 x 5.6 cm.Left kidney measures 13.7 x 6.2 x 6.0 cm.Cortical thickness appears normal in both kidneys.No hydronephrosis, renal mass, or renal stone demonstrated.Arterial and venous flow demonstrated in both renal aakash.Bladder not visualized.Patient is status post hysterectomy. Signed:Ra Luciano Verified Date/Time: 02/27/2019 14:19:25 Reading Location: [address] Ultrasound Reading Room U/ S, RENAL, [id number] 14:19:00Reason for exam:->CYSTITISFINAL REPORT INDICATION:Urinary tract infection (cystitis). COMPARISON : None.TECHNIQUE: Renal ultrasound exam limited.Pelvic ultrasound exam. FINDINGS / IMPRESSION:Right kidney measures 13.1 x 5.8 x 5.6 cm.Left kidney measures 13.7 x 6.2 x 6.0 cm.Cortical thickness appears normal in both kidneys.No hydronephrosis, renal mass, or renal stone demonstrated.Arterial and venous flow demonstrated in both renal aakash.Bladder not visualized.Patient is status post hysterectomy. Signed:Ra Luciano Verified Date/Time: 02/27/2019 14:19:25 Reading Location: [address] Ultrasound Reading Room URINALYSIS W/ REFLEX URINE [id number] 12:20:00 Test Item Value Reference Range Comments COLOR (BEAKER) (test jgpz=037) Yellow CLARITY (BEAKER) (test ocaa=351) Clear SPECIFIC GRAVITY UA (BEAKER) (test wwze=497) 1.032 1.001-1.035 PH UA (BEAKER) (test belm=583) 5.5 5.0-8.0 PROTEIN UA (BEAKER) (test rrxx=132) Negative Negative GLUCOSE UA (BEAKER) (test yyfy=448) >1000 mg/dL Negative KETONES UA (BEAKER) (test muna=334) Negative Negative BILIRUBIN UA (BEAKER) (test uemx=401) Negative Negative BLOOD UA (BEAKER) (test fmtd=628) Negative Negative NITRITE UA (BEAKER) (test wmjy=093) Negative Negative LEUKOCYTE ESTERASE UA (BEAKER) (test ynpr=090) Negative Negative UROBILINOGEN UA (BEAKER) (test jriw=024) 0.2 mg/dL 0.2-1.0 RBC UA (BEAKER) (test rxdw=852) < /HPF WBC UA (BEAKER) (test hldt=111) 1 /HPF SQUAMOUS EPITHELIAL (BEAKER) (test prib=872) 7 /HPF SOURCE(BEAKER) (test qvpr=4700) HEPATIC FUNCTION [id number] 12:11:00 Test Item Value Reference Range Comments TOTAL PROTEIN (BEAKER) (test xuvw=890) 7.4 gm/dL 6.0-8.3 ALBUMIN (BEAKER) (test kuac=5155) 3.8 g/dL 3.5-5.0 BILIRUBIN TOTAL (BEAKER) (test qytm=425) 0.4 mg/dL 0.2-1.2 BILIRUBIN DIRECT (BEAKER) (test yepy=005) 0.2 mg/dL 0.1-0.5 ALKALINE PHOSPHATASE (BEAKER) (test dqka=895) 93 U/L 40-150 AST (SGOT) (BEAKER) (test tuak=084) 44 U/L 5-34 ALT (SGPT) (BEAKER) (test epzk=750) 15 U/L 6-55 BASIC METABOLIC [id number] 12:11:00 Test Item Value Reference Range Comments SODIUM (BEAKER) (test 140 meq/L 136-145 cyrv=304) POTASSIUM (BEAKER) (test 4.0 meq/L 3.5-5.1 yrrv=548) CHLORIDE (BEAKER) (test 104 meq/L 98-107 mvel=698) CO2 (BEAKER) (test 27 meq/L 22-29 yfdz=650) BLOOD UREA NITROGEN 24 mg/dL 7-21 (BEAKER) (test eqim=007) CREATININE (BEAKER) (test 0.89 mg/dL 0.57-1.25 cqgr=180) GLUCOSE RANDOM (BEAKER) 134 mg/dL 70-105 (test scuc=403) CALCIUM (BEAKER) (test 8.5 mg/dL 8.4-10.2 xubr=510) EGFR (BEAKER) (test 64 mL/min/1.73 sq m ESTIMATED GFR IS NOT vbfr=2547) ACCURATE CREATININE CLEARANCE IN PREDICTING GLOMERULAR FILTRATION RATE. ESTIMATED GFR IS NOT APPLICABLE FOR DIALYSIS PATIENTS. LACTIC ACID, [id number] 12:09:00 Test Item Value Reference Range Comments LACTATE BLOOD VENOUS (2) 2.3 mmol/L 0.5-2.2 Specimen slightly hemolyzed (BEAKER) (test sjlk=0960) KETONE, [id number] 11:53:00 Test Item Value Reference Range Comments KETONES, BLOOD (BEAKER) (test noaa=0597) 0.1 mmol/L <0.4 CBC W/PLT COUNT & AUTO [id number] 11:53:00 Test Item Value Reference Range Comments WHITE BLOOD CELL COUNT (BEAKER) (test cohk=741) 8.5 K/ L 3.5-10.5 RED BLOOD CELL COUNT (BEAKER) (test kjjr=405) 3.95 M/ L 3.93-5.22 HEMOGLOBIN (BEAKER) (test sewy=149) 12.2 GM/DL 11.2-15.7 HEMATOCRIT (BEAKER) (test zmyv=621) 39.1 % 34.1-44.9 MEAN CORPUSCULAR VOLUME (BEAKER) (test scjc=043) 99.0 fL 79.4-94.8 MEAN CORPUSCULAR HEMOGLOBIN (BEAKER) (test 30.9 pg 25.6-32.2 spcn=588) MEAN CORPUSCULAR HEMOGLOBIN CONC (BEAKER) (test 31.2 GM/DL 32.2-35.5 zwuo=700) RED CELL DISTRIBUTION WIDTH (BEAKER) (test 16.1 % 11.7-14.4 bmvz=829) PLATELET COUNT (BEAKER) (test qiyz=511) 279 K/CU MM 150-450 MEAN PLATELET VOLUME (BEAKER) (test ykzk=448) 9.6 fL 9.4-12.3 NUCLEATED RED BLOOD CELLS (BEAKER) (test 0 /100 WBC 0-0 zixq=042) NEUTROPHILS RELATIVE PERCENT (BEAKER) (test 57 % nsiq=495) LYMPHOCYTES RELATIVE PERCENT (BEAKER) (test 32 % maqq=400) MONOCYTES RELATIVE PERCENT (BEAKER) (test 8 % yvif=476) EOSINOPHILS RELATIVE PERCENT (BEAKER) (test 2 % mrms=926) BASOPHILS RELATIVE PERCENT (BEAKER) (test 0 % wdpx=775) NEUTROPHILS ABSOLUTE COUNT (BEAKER) (test 4.87 K/ L 1.56-6.13 jxan=877) LYMPHOCYTES ABSOLUTE COUNT (BEAKER) (test 2.73 K/ L 1.18-3.74 rblu=163) MONOCYTES ABSOLUTE COUNT (BEAKER) (test 0.70 K/ L 0.24-0.36 gqne=071) EOSINOPHILS ABSOLUTE COUNT (BEAKER) (test 0.18 K/ L 0.04-0.36 tmsu=255) BASOPHILS ABSOLUTE COUNT (BEAKER) (test 0.03 K/ L 0.01-0.08 nfpv=014) IMMATURE GRANULOCYTES-RELATIVE PERCENT (BEAKER) 0 % 0-1 (test sycb=2053) WOUND CULTURE + GRAM [id number] 18:38:00 Test Item Value Reference Range Comments CULTURE (BEAKER) (test nkox=7605) 1+ Skin batsheva GRAM STAIN RESULT (BEAKER) (test No WBCs mkbl=0692) GRAM STAIN RESULT (BEAKER) (test No organisms seen jagx=97166) AFB CULTURE + [id number] 14:57:00 Test Item Value Reference Range Comments CULTURE (BEAKER) (test No acid-fast bacilli isolated bvlw=8056) in 42 days AFB SMEAR (BEAKER) (test No acid fast bacilli seen yytp=978) SURGICALLY OBTAINED CULTURE + GRAM [id number] 10:13:00 Test Item Value Reference Range Comments CULTURE (BEAKER) (test yulu=9418) No growth GRAM STAIN RESULT (BEAKER) (test <1+ White blood cells seen afbo=7968) GRAM STAIN RESULT (BEAKER) (test No organisms seen saxo=89032) MM, U/S, BREAST, UNILATERAL, [id number] 16:18:00Reason for Exam:->r21MRN# : [id number] - MM, U/S, BREAST, UNILATERAL, LEFTULTRASOUND OF [...] of malignancy. Macie Esquivel M.D. pth/:12/08/2017 16:18:20 Etl Analyst: Phuong Pugh Cnc Lathe Machinist, [facility] Ultrasound BI-RADS: 2 Benign 67764 MM, DIGITAL MAMMO, DIAGNOSTIC, BILATERAL INCLUDING [id number] 16:16:00Reason for Exam:-& gt;Encounter for screening mammogram for malugnant neoplasm of breastMRN#: [id number] - MM, DIGITAL MAMMO, DIAGNOSTIC, BILATERAL INCLUDING [...] is recommended. Macie Esquivel M.D. pth/:12/08/2017 16:16:27 Etl Analyst: Ashely Chou RT(Roxana)(Miguel Angel), [facility] Mammogram BI-RADS: 2 Benign [id number] BLOOD [id number] 05:01:00 Test Item Value Reference Range Comments CULTURE (BEAKER) (test aadq=2416) No growth in 5 days BLOOD [id number] 23:00:00 Test Item Value Reference Range Comments CULTURE (BEAKER) (test tgxw=5169) No growth in 5 days POCT-GLUCOSE [id number] 07:45:00 Test Item Value Reference Range Comments POC-GLUCOSE METER (BEAKER) 125 mg/dL 70-[address] [facility] [address] (test nymd=2832) [place] [address] CALCIUM, [id number] 06:18:00 Test Item Value Reference Range Comments CALCIUM IONIZED (BEAKER) (test beby=905) 1.10 mmol/L 1.12-1.27 PH, BLOOD (BEAKER) (test dszd=8161) 7.36 [id number] 06:10:00 Test Item Value Reference Range Comments PHOSPHORUS (BEAKER) (test lqty=052) 4.3 mg/dL 2.3-4.7 [id number] 06:10:00 Test Item Value Reference Range Comments MAGNESIUM (BEAKER) (test tpeo=852) 1.7 mg/dL 1.6-2.6 BASIC METABOLIC [id number] 06:10:00 Test Item Value Reference Range Comments SODIUM (BEAKER) (test 135 meq/L 136-145 rbpi=293) POTASSIUM (BEAKER) (test 3.9 meq/L 3.5-5.1 hslb=536) CHLORIDE (BEAKER) (test 97 meq/L 98-107 papt=279) CO2 (BEAKER) (test 27 meq/L 22-29 jqco=286) BLOOD UREA NITROGEN 20 mg/dL 7-21 (BEAKER) (test nsmq=136) CREATININE (BEAKER) (test 0.84 mg/dL 0.57-1.25 jylv=833) GLUCOSE RANDOM (BEAKER) 117 mg/dL 70-105 (test lyrf=414) CALCIUM (BEAKER) (test 8.7 mg/dL 8.4-10.2 lclw=568) EGFR (BEAKER) (test 68 mL/min/1.73 sq m ESTIMATED GFR IS NOT imzr=0303) ACCURATE CREATININE CLEARANCE IN PREDICTING GLOMERULAR FILTRATION RATE. ESTIMATED GFR IS NOT APPLICABLE FOR DIALYSIS PATIENTS. CBC W/PLT COUNT & AUTO [id number] 05:28:00 Test Item Value Reference Range Comments WHITE BLOOD CELL COUNT (BEAKER) (test pisd=128) 7.1 K/ L 3.5-10.5 RED BLOOD CELL COUNT (BEAKER) (test febz=105) 3.75 M/ L 3.93-5.22 HEMOGLOBIN (BEAKER) (test uugb=575) 11.6 GM/DL 11.2-15.7 HEMATOCRIT (BEAKER) (test qxqp=441) 37.0 % 34.1-44.9 MEAN CORPUSCULAR VOLUME (BEAKER) (test eynb=131) 98.7 fL 79.4-94.8 MEAN CORPUSCULAR HEMOGLOBIN (BEAKER) (test 30.9 pg 25.6-32.2 qrqp=751) MEAN CORPUSCULAR HEMOGLOBIN CONC (BEAKER) (test 31.4 GM/DL 32.2-35.5 rrfe=387) RED CELL DISTRIBUTION WIDTH (BEAKER) (test 14.5 % 11.7-14.4 hlla=168) PLATELET COUNT (BEAKER) (test accf=222) 256 K/CU MM 150-450 MEAN PLATELET VOLUME (BEAKER) (test xypc=811) 9.2 fL 9.4-12.3 NUCLEATED RED BLOOD CELLS (BEAKER) (test 0 /100 WBC 0-0 bmkg=242) NEUTROPHILS RELATIVE PERCENT (BEAKER) (test 49 % pvdi=820) LYMPHOCYTES RELATIVE PERCENT (BEAKER) (test 39 % zdxw=429) MONOCYTES RELATIVE PERCENT (BEAKER) (test 9 % fwwj=467) EOSINOPHILS RELATIVE PERCENT (BEAKER) (test 2 % ynlf=714) BASOPHILS RELATIVE PERCENT (BEAKER) (test 0 % rppi=321) NEUTROPHILS ABSOLUTE COUNT (BEAKER) (test 3.46 K/ L 1.56-6.13 ullv=543) LYMPHOCYTES ABSOLUTE COUNT (BEAKER) (test 2.78 K/ L 1.18-3.74 cdml=854) MONOCYTES ABSOLUTE COUNT (BEAKER) (test 0.62 K/ L 0.24-0.36 nnjy=907) EOSINOPHILS ABSOLUTE COUNT (BEAKER) (test 0.14 K/ L 0.04-0.36 yvak=676) BASOPHILS ABSOLUTE COUNT (BEAKER) (test 0.03 K/ L 0.01-0.08 cnxa=060) IMMATURE GRANULOCYTES-RELATIVE PERCENT (BEAKER) 0 % 0-1 (test hgky=3234) POCT-GLUCOSE [id number] 21:40:00 Test Item Value Reference Range Comments POC-GLUCOSE METER (BEAKER) 138 mg/dL 70-110 TESTED AT [address] (test ctxa=3994) [place] [id number] POCT-GLUCOSE [id number] 18:56:00 Test Item Value Reference Range Comments POC-GLUCOSE METER (BEAKER) 98 mg/dL 70-110 TESTED AT [address] (test hsdf=9183) [place] [id number] POCT-GLUCOSE [id number] 14:49:00 Test Item Value Reference Range Comments POC-GLUCOSE METER (BEAKER) 92 mg/dL 70-110 TESTED AT [address] (test ecys=7860) [place] [address] VANCOMYCIN LEVEL, [id number] 11:12:00 Test Item Value Reference Range Comments VANCOMYCIN TROUGH (BEAKER) (test kzjg=448) 16.1 ug/mL 10.0-20.0 POCT-GLUCOSE [id number] 09:35:00 Test Item Value Reference Range Comments POC-GLUCOSE METER (BEAKER) 123 mg/dL 70-110 TESTED AT [address] (test jxcz=5957) [place] [address] CBC W/PLT COUNT & AUTO [id number] 09:02:00 Test Item Value Reference Range Comments WHITE BLOOD CELL COUNT (BEAKER) (test tjbb=619) 6.2 K/ L 3.5-10.5 RED BLOOD CELL COUNT (BEAKER) (test gupw=300) 3.72 M/ L 3.93-5.22 HEMOGLOBIN (BEAKER) (test mboo=493) 11.5 GM/DL 11.2-15.7 HEMATOCRIT (BEAKER) (test rtgk=807) 36.5 % 34.1-44.9 MEAN CORPUSCULAR VOLUME (BEAKER) (test bzfs=089) 98.1 fL 79.4-94.8 MEAN CORPUSCULAR HEMOGLOBIN (BEAKER) (test 30.9 pg 25.6-32.2 bdjb=604) MEAN CORPUSCULAR HEMOGLOBIN CONC (BEAKER) (test 31.5 GM/DL 32.2-35.5 kfiw=937) RED CELL DISTRIBUTION WIDTH (BEAKER) (test 14.4 % 11.7-14.4 xqhu=011) PLATELET COUNT (BEAKER) (test uugm=021) 268 K/CU MM 150-450 MEAN PLATELET VOLUME (BEAKER) (test criw=212) 9.1 fL 9.4-12.3 NUCLEATED RED BLOOD CELLS (BEAKER) (test 0 /100 WBC 0-0 dmbp=327) NEUTROPHILS RELATIVE PERCENT (BEAKER) (test 44 % qdwp=248) LYMPHOCYTES RELATIVE PERCENT (BEAKER) (test 44 % arsq=044) MONOCYTES RELATIVE PERCENT (BEAKER) (test 9 % nkhe=949) EOSINOPHILS RELATIVE PERCENT (BEAKER) (test 2 % jhpc=170) BASOPHILS RELATIVE PERCENT (BEAKER) (test 0 % isma=819) NEUTROPHILS ABSOLUTE COUNT (BEAKER) (test 2.70 K/ L 1.56-6.13 scxc=819) LYMPHOCYTES ABSOLUTE COUNT (BEAKER) (test 2.70 K/ L 1.18-3.74 npov=255) MONOCYTES ABSOLUTE COUNT (BEAKER) (test 0.58 K/ L 0.24-0.36 krue=865) EOSINOPHILS ABSOLUTE COUNT (BEAKER) (test 0.15 K/ L 0.04-0.36 ogza=991) BASOPHILS ABSOLUTE COUNT (BEAKER) (test 0.02 K/ L 0.01-0.08 gnpy=183) IMMATURE GRANULOCYTES-RELATIVE PERCENT (BEAKER) 0 % 0-1 (test kgrg=8226) VITAMIN D, [id number] 07:00:00 Test Item Value Reference Range Comments VITAMIN D 25-OH (BEAKER) (test yunc=4053) 22.5 ng/mL 6.6-49.9 Effective 07/27/2017: Reference Range ChangeNew: 6.6-49.9 ng/mL Previous: 13.0 -47.8 ng/mLRecommended Vitamin D Target Range: 30.0-40.0 ng/[id number] 06:39:00 Test Item Value Reference Range Comments PHOSPHORUS (BEAKER) (test lzmd=569) 4.6 mg/dL 2.3-4.7 [id number] 06:39:00 Test Item Value Reference Range Comments MAGNESIUM (BEAKER) (test vrth=250) 1.7 mg/dL 1.6-2.6 BASIC METABOLIC [id number] 06:39:00 Test Item Value Reference Range Comments SODIUM (BEAKER) (test 139 meq/L 136-145 mpdx=067) POTASSIUM (BEAKER) (test 4.2 meq/L 3.5-5.1 qwrr=361) CHLORIDE (BEAKER) (test 102 meq/L 98-107 nyjs=105) CO2 (BEAKER) (test 26 meq/L 22-29 hraj=987) BLOOD UREA NITROGEN 16 mg/dL 7-21 (BEAKER) (test zgcv=853) CREATININE (BEAKER) (test 0.75 mg/dL 0.57-1.25 owqv=231) GLUCOSE RANDOM (BEAKER) 106 mg/dL 70-105 (test yzyz=360) CALCIUM (BEAKER) (test 9.3 mg/dL 8.4-10.2 eevj=082) EGFR (BEAKER) (test 78 mL/min/1.73 sq m ESTIMATED GFR IS NOT wbhp=2251) ACCURATE CREATININE CLEARANCE IN PREDICTING GLOMERULAR FILTRATION RATE. ESTIMATED GFR IS NOT APPLICABLE FOR DIALYSIS PATIENTS. CALCIUM, [id number] 06:30:00 Test Item Value Reference Range Comments CALCIUM IONIZED (BEAKER) (test ketq=487) 0.87 mmol/L 1.12-1.27 PH, BLOOD (BEAKER) (test xzny=2148) 7.37 POCT-GLUCOSE [id number] 20:32:00 Test Item Value Reference Range Comments POC-GLUCOSE METER (BEAKER) 173 mg/dL 70-110 TESTED AT [address] (test jzcr=1223) [facility] [address] POCT-GLUCOSE [id number] 18:41:00 Test Item Value Reference Range Comments POC-GLUCOSE METER (BEAKER) 121 mg/dL 70-110 TESTED AT [address] (test oznl=2322) [facility] [address] HEMOGLOBIN [id number] 14:36:00 Test Item Value Reference Range Comments HEMOGLOBIN A1C (BEAKER) (test hcff=726) 6.6 % 4.3-6.1 POCT-GLUCOSE [id number] 12:36:00 Test Item Value Reference Range Comments POC-GLUCOSE METER (BEAKER) 139 mg/dL 70-110 TESTED AT [address] (test fnzz=9020) [facility] [address] POCT-GLUCOSE [id number] 08:34:00 Test Item Value Reference Range Comments POC-GLUCOSE METER (BEAKER) 125 mg/dL 70-110 TESTED AT [place] [id number] [facility] (test hnrw=7007) [facility] [address] CBC W/PLT COUNT & AUTO [id number] 07:16:00 Test Item Value Reference Range Comments WHITE BLOOD CELL COUNT (BEAKER) (test rdms=681) 7.6 K/ L 3.5-10.5 RED BLOOD CELL COUNT (BEAKER) (test jkmj=879) 3.58 M/ L 3.93-5.22 HEMOGLOBIN (BEAKER) (test jwwo=598) 11.2 GM/DL 11.2-15.7 HEMATOCRIT (BEAKER) (test yewr=187) 35.6 % 34.1-44.9 MEAN CORPUSCULAR VOLUME (BEAKER) (test cstw=577) 99.4 fL 79.4-94.8 MEAN CORPUSCULAR HEMOGLOBIN (BEAKER) (test 31.3 pg 25.6-32.2 ueki=185) MEAN CORPUSCULAR HEMOGLOBIN CONC (BEAKER) (test 31.5 GM/DL 32.2-35.5 esck=201) RED CELL DISTRIBUTION WIDTH (BEAKER) (test 14.5 % 11.7-14.4 xsrt=630) PLATELET COUNT (BEAKER) (test xflc=150) 274 K/CU MM 150-450 MEAN PLATELET VOLUME (BEAKER) (test ibyr=247) 9.1 fL 9.4-12.3 NUCLEATED RED BLOOD CELLS (BEAKER) (test 0 /100 WBC 0-0 rmkm=997) NEUTROPHILS RELATIVE PERCENT (BEAKER) (test 44 % vtdi=995) LYMPHOCYTES RELATIVE PERCENT (BEAKER) (test 43 % levs=085) MONOCYTES RELATIVE PERCENT (BEAKER) (test 10 % amou=840) EOSINOPHILS RELATIVE PERCENT (BEAKER) (test 2 % grsi=102) BASOPHILS RELATIVE PERCENT (BEAKER) (test 0 % nmvx=690) NEUTROPHILS ABSOLUTE COUNT (BEAKER) (test 3.29 K/ L 1.56-6.13 wszr=944) LYMPHOCYTES ABSOLUTE COUNT (BEAKER) (test 3.26 K/ L 1.18-3.74 hyjv=337) MONOCYTES ABSOLUTE COUNT (BEAKER) (test 0.75 K/ L 0.24-0.36 qcxj=918) EOSINOPHILS ABSOLUTE COUNT (BEAKER) (test 0.18 K/ L 0.04-0.36 niob=908) BASOPHILS ABSOLUTE COUNT (BEAKER) (test 0.03 K/ L 0.01-0.08 cjpp=377) IMMATURE GRANULOCYTES-RELATIVE PERCENT (BEAKER) 1 % 0-1 (test zqzb=1930) (MANUAL DIFFERENTIAL)2017-12-01 07:16:00 Test Item Value Reference Range Comments TOTAL COUNTED (BEAKER) (test kvcq=3309) TSH/FREE T4 IF [id number] 06:48:00 Test Item Value Reference Range Comments THYROID STIMULATING HORMONE (BEAKER) (test 4.13 uIU/mL 0.35-4.94 thha=713) [id number] 06:25:00 Test Item Value Reference Range Comments PHOSPHORUS (BEAKER) (test uktr=643) 3.9 mg/dL 2.3-4.7 [id number] 06:25:00 Test Item Value Reference Range Comments MAGNESIUM (BEAKER) (test dqsk=863) 1.8 mg/dL 1.6-2.6 BASIC METABOLIC [id number] 06:25:00 Test Item Value Reference Range Comments SODIUM (BEAKER) (test 138 meq/L 136-145 fdow=238) POTASSIUM (BEAKER) (test 4.0 meq/L 3.5-5.1 yqnd=082) CHLORIDE (BEAKER) (test 102 meq/L 98-107 ubus=754) CO2 (BEAKER) (test 25 meq/L 22-29 yczh=971) BLOOD UREA NITROGEN 15 mg/dL 7-21 (BEAKER) (test riuj=714) CREATININE (BEAKER) (test 0.82 mg/dL 0.57-1.25 stfa=888) GLUCOSE RANDOM (BEAKER) 100 mg/dL 70-105 (test clzb=825) CALCIUM (BEAKER) (test 9.0 mg/dL 8.4-10.2 sdlj=209) EGFR (BEAKER) (test 70 mL/min/1.73 sq m ESTIMATED GFR IS NOT kzom=9501) ACCURATE CREATININE CLEARANCE IN PREDICTING GLOMERULAR FILTRATION RATE. ESTIMATED GFR IS NOT APPLICABLE FOR DIALYSIS PATIENTS. LIPID [id number] 06:25:00 Test Item Value Reference Range Comments TRIGLYCERIDES (BEAKER) (test sgpc=081) 357 mg/dL CHOLESTEROL (BEAKER) (test bcrv=622) 161 mg/dL HDL CHOLESTEROL (BEAKER) (test atgy=913) 44 mg/dL LDL CHOLESTEROL CALCULATED (BEAKER) (test 46 mg/dL duki=653) Triglyceride Reference Range: Low Risk <150 Borderline 150- 199 High Risk 200-499 Very High Risk >=500Cholesterol Reference Range: Low Risk <200 Borderline 200-239 High Risk > 240HDL Cholesterol Reference Range: Low Risk >=60 High Risk <40LDL Cholesterol Reference Range: Optimal <100 Near Optimal 100-129 Borderline 130-159 High 160-189 Very High >=190CALCIUM, [id number] 06:02:00 Test Item Value Reference Range Comments CALCIUM IONIZED (BEAKER) (test pjrk=102) 0.84 mmol/L 1.12-1.27 PH, BLOOD (BEAKER) (test nddk=9688) 7.40 POCT-GLUCOSE [id number] 23:04:00 Test Item Value Reference Range Comments POC-GLUCOSE METER (BEAKER) 92 mg/dL 70-110 TESTED AT [address] (test insq=0582) [facility] [address] BASIC METABOLIC [id number] 16:03:00 Test Item Value Reference Range Comments SODIUM (BEAKER) (test 137 meq/L 136-145 zwxb=854) POTASSIUM (BEAKER) (test 4.1 meq/L 3.5-5.1 nacu=784) CHLORIDE (BEAKER) (test 104 meq/L 98-107 mcsw=857) CO2 (BEAKER) (test 21 meq/L 22-29 ikpk=490) BLOOD UREA NITROGEN 14 mg/dL 7-21 (BEAKER) (test rjed=665) CREATININE (BEAKER) (test 0.85 mg/dL 0.57-1.25 dfas=609) GLUCOSE RANDOM (BEAKER) 103 mg/dL 70-105 (test idda=727) CALCIUM (BEAKER) (test 9.0 mg/dL 8.4-10.2 zcuj=331) EGFR (BEAKER) (test 68 mL/min/1.73 sq m ESTIMATED GFR IS NOT ldov=3188) ACCURATE CREATININE CLEARANCE IN PREDICTING GLOMERULAR FILTRATION RATE. ESTIMATED GFR IS NOT APPLICABLE FOR DIALYSIS PATIENTS. CBC W/PLT COUNT & AUTO [id number] 15:58:00 Test Item Value Reference Range Comments WHITE BLOOD CELL COUNT (BEAKER) (test dfzv=138) 7.2 K/ L 3.5-10.5 RED BLOOD CELL COUNT (BEAKER) (test kreg=019) 3.79 M/ L 3.93-5.22 HEMOGLOBIN (BEAKER) (test iyve=397) 12.0 GM/DL 11.2-15.7 HEMATOCRIT (BEAKER) (test mmop=599) 37.8 % 34.1-44.9 MEAN CORPUSCULAR VOLUME (BEAKER) (test blss=670) 99.7 fL 79.4-94.8 MEAN CORPUSCULAR HEMOGLOBIN (BEAKER) (test 31.7 pg 25.6-32.2 yofo=743) MEAN CORPUSCULAR HEMOGLOBIN CONC (BEAKER) (test 31.7 GM/DL 32.2-35.5 odmj=725) RED CELL DISTRIBUTION WIDTH (BEAKER) (test 14.5 % 11.7-14.4 htrw=700) PLATELET COUNT (BEAKER) (test cvph=299) 296 K/CU MM 150-450 MEAN PLATELET VOLUME (BEAKER) (test zhsl=431) 9.0 fL 9.4-12.3 NUCLEATED RED BLOOD CELLS (BEAKER) (test 0 /100 WBC 0-0 mfxw=547) NEUTROPHILS RELATIVE PERCENT (BEAKER) (test 47 % pgwu=319) LYMPHOCYTES RELATIVE PERCENT (BEAKER) (test 42 % qyyd=181) MONOCYTES RELATIVE PERCENT (BEAKER) (test 8 % ufre=507) EOSINOPHILS RELATIVE PERCENT (BEAKER) (test 2 % ziqb=590) BASOPHILS RELATIVE PERCENT (BEAKER) (test 0 % abhj=530) NEUTROPHILS ABSOLUTE COUNT (BEAKER) (test 3.41 K/ L 1.56-6.13 jjzp=175) LYMPHOCYTES ABSOLUTE COUNT (BEAKER) (test 3.01 K/ L 1.18-3.74 ogma=229) MONOCYTES ABSOLUTE COUNT (BEAKER) (test 0.58 K/ L 0.24-0.36 zepn=279) EOSINOPHILS ABSOLUTE COUNT (BEAKER) (test 0.17 K/ L 0.04-0.36 rfnx=276) BASOPHILS ABSOLUTE COUNT (BEAKER) (test 0.03 K/ L 0.01-0.08 wqqy=354) IMMATURE GRANULOCYTES-RELATIVE PERCENT (BEAKER) 0 % 0-1 (test ujkv=9055) RAD, CHEST, 2 [id number] 15:19:00Reason for exam:->cpShould this be performed at the bedside?->NoFINAL REPORT Chest two views compared to November 14, 2017 Discussion: Lungs clear. Heart size normal. No effusion or pneumothorax. There are right shoulder degenerative changes. Widened left AC joint may reflect previous surgery or trauma. Signed: [place]ryn [place] Verified Date/Time: 11/30/2017 15:19:59 Reading Location: [address] Consult Reading Room SINUS CULTURE + GRAM [id number] 08:42:00 Test Item Value Reference Range Comments CULTURE (BEAKER) (test wrjz=3070) Clindamycin (test code=10) Erythromycin (test code=4) Linezolid (test code=40) Nitrofurantoin (test code=23) Oxacillin (test code=14) Rifampin (test code=43) Tetracycline (test code=2) Trimethoprim + Sulfamethoxazole (test code=47) Vancomycin (test code=13) CULTURE (BEAKER) (test 1+ Methicillin resistant rrlj=8288) Staphylococcus aureus GRAM STAIN RESULT (BEAKER) <1+ WBCs (test vaqr=5685) GRAM STAIN RESULT (BEAKER) No organisms seen (test ghch=046280) No Normal respiratory batsheva presentHEPATIC FUNCTION [id number] 14:45:00 Test Item Value Reference Range Comments TOTAL PROTEIN (BEAKER) (test ysjs=618) 7.1 gm/dL 6.0-8.3 ALBUMIN (BEAKER) (test pjhi=3016) 3.7 g/dL 3.5-5.0 BILIRUBIN TOTAL (BEAKER) (test fqhz=039) 0.3 mg/dL 0.2-1.2 BILIRUBIN DIRECT (BEAKER) (test rlzd=845) 0.1 mg/dL 0.1-0.5 ALKALINE PHOSPHATASE (BEAKER) (test dxet=838) 109 U/L 40-150 AST (SGOT) (BEAKER) (test swue=679) 18 U/L 5-34 ALT (SGPT) (BEAKER) (test qflc=269) 9 U/L 6-55 BASIC METABOLIC [id number] 14:45:00 Test Item Value Reference Range Comments SODIUM (BEAKER) (test 137 meq/L 136-145 iblo=132) POTASSIUM (BEAKER) (test 3.8 meq/L 3.5-5.1 zqwi=251) CHLORIDE (BEAKER) (test 101 meq/L 98-107 zumj=642) CO2 (BEAKER) (test 25 meq/L 22-29 ihow=792) BLOOD UREA NITROGEN 16 mg/dL 7-21 (BEAKER) (test lfhp=324) CREATININE (BEAKER) (test 0.73 mg/dL 0.57-1.25 vxok=691) GLUCOSE RANDOM (BEAKER) 89 mg/dL 70-105 (test cyga=817) CALCIUM (BEAKER) (test 8.7 mg/dL 8.4-10.2 layj=221) EGFR (BEAKER) (test 81 mL/min/1.73 sq m ESTIMATED GFR IS NOT jhtl=5116) ACCURATE CREATININE CLEARANCE IN PREDICTING GLOMERULAR FILTRATION RATE. ESTIMATED GFR IS NOT APPLICABLE FOR DIALYSIS PATIENTS. CBC W/PLT COUNT & AUTO [id number] 14:12:00 Test Item Value Reference Range Comments WHITE BLOOD CELL COUNT (BEAKER) (test jjil=273) 7.8 K/ L 3.5-10.5 RED BLOOD CELL COUNT (BEAKER) (test byzj=375) 3.73 M/ L 3.93-5.22 HEMOGLOBIN (BEAKER) (test rpfw=899) 11.7 GM/DL 11.2-15.7 HEMATOCRIT (BEAKER) (test rcqx=839) 36.4 % 34.1-44.9 MEAN CORPUSCULAR VOLUME (BEAKER) (test khux=031) 97.6 fL 79.4-94.8 MEAN CORPUSCULAR HEMOGLOBIN (BEAKER) (test 31.4 pg 25.6-32.2 qnft=031) MEAN CORPUSCULAR HEMOGLOBIN CONC (BEAKER) (test 32.1 GM/DL 32.2-35.5 yrur=464) RED CELL DISTRIBUTION WIDTH (BEAKER) (test 14.3 % 11.7-14.4 cilc=315) PLATELET COUNT (BEAKER) (test kdls=166) 291 K/CU MM 150-450 MEAN PLATELET VOLUME (BEAKER) (test izon=065) 9.3 fL 9.4-12.3 NUCLEATED RED BLOOD CELLS (BEAKER) (test 0 /100 WBC 0-0 humu=819) NEUTROPHILS RELATIVE PERCENT (BEAKER) (test 48 % caif=998) LYMPHOCYTES RELATIVE PERCENT (BEAKER) (test 40 % aybg=606) MONOCYTES RELATIVE PERCENT (BEAKER) (test 8 % tbyk=956) EOSINOPHILS RELATIVE PERCENT (BEAKER) (test 3 % rjym=968) BASOPHILS RELATIVE PERCENT (BEAKER) (test 0 % eoys=721) NEUTROPHILS ABSOLUTE COUNT (BEAKER) (test 3.72 K/ L 1.56-6.13 pqro=531) LYMPHOCYTES ABSOLUTE COUNT (BEAKER) (test 3.13 K/ L 1.18-3.74 lqai=584) MONOCYTES ABSOLUTE COUNT (BEAKER) (test 0.64 K/ L 0.24-0.36 ycie=844) EOSINOPHILS ABSOLUTE COUNT (BEAKER) (test 0.20 K/ L 0.04-0.36 zedr=214) BASOPHILS ABSOLUTE COUNT (BEAKER) (test 0.03 K/ L 0.01-0.08 mzoc=015) IMMATURE GRANULOCYTES-RELATIVE PERCENT (BEAKER) 0 % 0-1 (test bqnp=6751) RAD, CHEST, 2 [id number] 13:06:00Reason for Exam:->[id number] REPORT HISTORY : R05. Comparison: None Comment: Two views of the chest,PA and lateral, were obtained. The cardiac silhouette is within normal limits. There is no pleural effusion, pneumothorax or infiltrate. No lytic or blastic abnormalities. Fixation hardware is seen in the cervical spine. Multilevel degenerative disc changes of the thoracic spine are seen. Impression: No acute cardiothoracic abnormalities. Signed: Kelly Chapinort Verified Date/Time: 11/14/2017 13:06:08 Reading Location: [address] Radiology Reading Room CT ABDOMEN AND [...]
--- OUTSIDE RECORDS SUMMARY | 2019-03-29 12:39 | XMS REPORT ---
:1955 Author Organization [employer] Care Team Providers Name Role Phone Deepthi [...] Medications Results No Known Results Summary Purpose [facility] Submission
--- OUTSIDE RECORDS SUMMARY | 2019-03-29 12:39 | XMS REPORT ---
:1955 Author Organization [employer] Care Team Providers Name Role Phone Deepthi [...] Medications Results No Known Results Summary Purpose [facility] Submission
[2019-03-29 13:45] VITALS: BMI 48.4
[2019-03-29 14:13] LABS: Absolute Lymphocytes (CBC) 3.1 K/uL (0.7-4.9); Eosinophils % 1.4 % (0-4.4); Hematocrit 37.4 % (36.0-45.0); Lymphocytes % 41.8 % (15.3-44.8); MPV 8.2 fL (7.6-11.3); Monocytes % 8.8 % (3.3-12.3); RBC Red Blood Cell Count 3.94 M/uL (3.86-4.86)
[2019-03-29 14:31] LABS: Albumin 2.9 g/dL (3.4-5.0); Bilirubin Total 0.2 mg/dL (0.2-1.0); Potassium 3.7 mmol/L (3.5-5.1); Protein, Total 6.3 g/dL (6.4-8.2)
[2019-03-29] MEDS ORDERED: ASPIRIN 81 MG CHEWABLE TABLET PO ONE (15:00)
--- NOTE | 2019-03-29 15:00 | RAD REPORT ---
EXAM DESCRIPTION: CT - Head Brain Wo Cont - 03/29/2019 2:53 pm CLINICAL HISTORY: cva Headache, drowsiness, CVA COMPARISON: Head Brain Wo Cont dated 01/05/2018; Head Brain Wo Cont dated 03/28/2017 TECHNIQUE: All CT scans are performed using dose optimization technique as appropriate and may inclu de automated exposure control or mA/KV adjustment according to patient size. FINDINGS: No intracranial hemorrhage, hydrocephalus or extra-axial fluid collection.No areas of brai n edema or evidence of midline shift. The paranasal sinuses and mastoids are clear. The calvarium is intact. IMPRESSION: No acute intracranial abnormality. If there is continued clinical concern for CVA, MR imaging of the brain would be recommended.
--- NOTE | 2019-03-29 15:46 | RAD REPORT ---
EXAM DESCRIPTION: US - CP - 03/29/2019 3:31 pm CLINICAL HISTORY: cva Headache, drowsiness, CVA symptomology COMPARISON: <Comparisons> TECHNIQUE: Real-time sonographic evaluation of both carotid systems was performed. Doppler interroga tion was performed with waveform tracing bilaterally. FINDINGS: Normal high resistance waveforms are noted in both external carotid arteries. The common c arotid arteries and internal carotid arteries show normal low resistance waveforms. Small amount of plaquing is seen at distal left common carotid artery and left carotid bulb. Peak sys tolic and end diastolic velocity values and the ICA/CCA ratios are in the non-hemodynamically signifi cant range. Antegrade flow seen in both vertebral arteries. IMPRESSION: Mild plaquing seen distal left common carotid artery and left carotid bulb. No evidence of a hemodynamically significant stenosis.
[2019-03-29 16:12] LABS: Urine Appearance CLEAR; Urine Bilirubin NEGATIVE (NEG); Urine Blood NEGATIVE (NEG); Urine Color YELLOW; Urine Glucose 3+ (NEG); Urine Protein NEGATIVE (NEG); Urine Specific Gravity >=1.030 (1.005-1.030); Urine pH 5.5 (5.0-7.0)
[2019-03-29 16:13] LABS: Urine Microscopic Reflex NO UMIC
[2019-03-29] MEDS: TRAMADOL HCL 50 MG TAB PO PRN (20:39)
[2019-03-29] MEDS: CAL PHOS PO SCH (21:00)
[2019-03-29] MEDS: MAG PO SCH (21:00)
[2019-03-29] MEDS: POT CHLORIDE PO SCH (21:00)
[2019-03-29] MEDS: CARVEDILOL 6.25 MG TAB PO SCH (21:47)
[2019-03-29] MEDS: TRAZODONE 50 MG TABLET PO SCH (21:48)
[2019-03-29] MEDS: DIVALPROEX ER 250 MG TAB PO SCH (21:48)
[2019-03-29] MEDS: FUROSEMIDE 20 MG TABLET PO SCH (21:48)
[2019-03-30] MEDS: TRAMADOL HCL 50 MG TAB PO PRN ×2 (02:40→21:25)
[2019-03-30] MEDS: LEVOTHYROXINE SOD 0.075 MG TAB PO SCH (05:28)
[2019-03-30] MEDS: ATORVASTATIN 10 MG TAB PO SCH (08:39)
[2019-03-30] MEDS: VENLAFAXINE HCL XR 75 MG CAP PO SCH (08:39)
[2019-03-30] MEDS: ENOXAPARIN 30 MG/0.3 ML SQ SCH (08:39)
[2019-03-30] MEDS: CARVEDILOL 6.25 MG TAB PO SCH ×2 (08:39→17:38)
[2019-03-30] MEDS: HOME MED 1 EA UNK (Empagliflozin [Jardiance] 1 TAB) PO SCH (08:45)
[2019-03-30] MEDS: GABAPENTIN 100 MG CAP PO SCH ×2 (14:30→21:24)
--- NOTE | 2019-03-30 18:01 | RAD REPORT ---
EXAM DESCRIPTION: MRI - Brain Wo Cont - 03/30/2019 5:42 pm CLINICAL HISTORY: Right arm numbness COMPARISON: March 29, [address] TECHNIQUE: Axial, sagittal, and coronal magnetic images of the brain were obtained. Contrast was not requested FINDINGS: A few small areas of increased signal within periventricular, deep and subcortical white m atter Diffusion-weighted/ADC mapping does not reveal evidence of acute infarction. The ventricles are normal caliber. An extra-axial fluid collection is not present The sinuses and mastoids are clear. IMPRESSION: A few small areas of increased signal within periventricular, deep and subcortical white matter may represent ischemic changes secondary to small vessel disease No acute abnormality is displayed
--- NOTE | 2019-03-30 18:05 | RAD REPORT ---
EXAM DESCRIPTION: MRI - MRA Head Wo Cont - 03/30/2019 5:42 pm CLINICAL HISTORY: right arm numbness COMPARISON: None. TECHNIQUE: Magnetic resonance angiogram was performed. 3D MIPS reconstruction performed FINDINGS: The anterior cerebral, middle cerebral, posterior cerebral, distal internal carotid and ba silar arteries do not demonstrate a significant stenosis. origin right posterior cerebral artery An aneurysm is not displayed. IMPRESSION: Unremarkable MRA brain.
--- NOTE | 2019-03-30 18:07 | HP ---
Date of Admission: 03/29/2019 Chief Complaint: Weakness of right arm, possibly right leg, and speech difficulties. History Of Present Illness: A 63-year-old female was brought to the office with multiple complaints that included weakness of the right arm, right leg, and difficulty with speech. The patient was exam ined. She was found to have borderline loss of strength in the right arm. In view of her symptoms, the patient was admitted for observation. The patient denied any history of fever, chills, rigors, o r any other systemic symptoms. Past Medical History: Positive for hypertension, type 2 diabetes, history of anxiety and depression, hyperlipidemia. Family History: Diabetes, hypertension present. Personal History: Nonsmoker. Allergies: NO KNOWN DRUG ALLERGIES. Home Medicines: Please refer to the chart. Review of Systems: The patient denied any chest pain, seizures, loss of consciousness, shortness of breath. Physical Examination: General: Revealed a 63-year-old female, anxious. Vital Signs: Normal. HEENT: Negative. Neck: Supple. JVD negative. Chest: Clear. Carotids, no bruit. Heart: Regular. Abdomen: Pendulous, nontender. Extremities: No edema. Neurological: At the time of exam, she had normal speech. There was equivocal loss of right arm str ength. She was able to ambulate in the room without any limp. Laboratory Data: CAT scan of the head, negative. Carotid, mild disease. CBC normal. Chem profile, random blood sugar of 100, otherwise negative. Assessment: 1.Focal neurological symptoms, transient ischemic attack versus cerebrovascular accident. 2.Type 2 diabetes. 3.Hypertension. 4.Hyperlipidemia. 5.Anxiety and depression. Plan: The patient came beyond 15 hours of onset of symptoms. She was not a candidate for any thromb olysis based on symptoms. In addition, the patient has history of anxiety and neurosis. I was not s ure whether this neurological presentation represented any conversion reaction. The patient is due t o be seen by Neurology Service to see what else can be done. Meanwhile, the patient is restarted on her regular medications. ILENE/CHIQUITA Voice ID: [id number]
--- NOTE | 2019-03-30 19:59 | CON ---
Consultation called because of possible stroke. History Of Present Illness: Ms. Liu is a 63-year-old, right-handed [employer] [facility], who said she developed sudden onset right face, arm and leg numbness and weakness yesterday. S he said the symptoms did not improve and continued to be significant. She had a head CT scan at [facility] yesterday that showed no acute ischemic or hemorrhagic change. Carotid artery ultrasou nd showed no hemodynamically significant stenosis. Blood work was complete blood count with differen tial completely normal. Chemistries showed no significant abnormalities. Glucose ranged from 96-136 . Liver function studies essentially unremarkable. Cholesterol panel showed an LDL cholesterol of 3 5, HDL cholesterol of 36, total cholesterol 131. Urinalysis had 3+ glucose. She reported taking asp irin 81 mg daily along with a statin, diuretic and Depakote. Past Medical History: Hga-utmekgx-aybcxqfzh diabetes mellitus, congestive heart failure, dyslipidemi a, hypertension, hypothyroidism, obstructive sleep apnea. Past Surgical History: None. Allergies: NO KNOWN DRUG ALLERGIES. Home Medications: Amitriptyline 25 mg at night, carvedilol 6.25 mg twice daily, Depakote extended re lease 500 mg essentially 2 of those twice daily, Lasix daily, levothyroxine 150 mcg daily. Meloxicam 7.5 mg daily, carvedilol 25 mg daily. Phentermine 3.75 mg daily, tramadol 50 mg every 6 hours as nee ded. Trazodone 50 mg at night. Venlafaxine 150 mg daily. Glimepiride 1 mg daily. Family History: Noncontributory. Social History: Denies recent alcohol, tobacco, or IV drug use. Review of Systems: Prior to the onset of her symptoms as described, she denies any recent fevers, chills, nausea, vomiti ng, myalgias, arthralgias, headaches, weight change, rash, psychiatric complaints, gastrointestinal o r genitourinary issues. Physical Examination: Vital Signs: Blood pressure is 112/54, pulse ranged from 49-60, respiratory rate ranged from 16 to 2 0, temperature 97.3, oxygen saturation 94% on room air. Pain level 2. General: Ms. Liu is resting in bed. She has an ice pack over the right side of her face. She is on her left side. HEENT: She appears normocephalic and atraumatic. Her sclerae are anicteric. Oropharynx is moist and pink. Neck: Supple. Chest: Clear. Heart: Regular. Extremities: Show no edema, cyanosis, or clubbing. Neurological: She is alert and oriented to person, place, time, and situation. She follows all comm ands appropriately. In terms of her cranial nerve exam, despite the patient saying there is weakness of the face, she says she is unable to open her eyes and when any attempt is made to manually open h er eye, she closed them down harder and when distracted she is able to open both eyes without difficu lty. She does have a symmetric face when distracted and she has equal excursions on smiling bilatera lly. In terms of the sensory facial examination, she does split the midline when moving from right t o left or left to right across the forehead. As soon as the midline is reached, she said there is a change in sensation where there is less on the right compared to the left side. Otherwise, she has i ntact hearing. Tongue and palate extrude and elevate respectively in the midline. Her motor examina tion, she has a full strength despite the reported weakness. When asked to lift the right arm, she a ppears not to be able to do so, but when distracted, she did lift the right arm very well and held th e ice pack above her head without difficulty. She does not appear to have focal weakness in the uppe r extremities bilaterally. In the lower extremities, similarly when asked to voluntarily lift the ri ght leg, she is unable to do it, but when distracted, as asking her to move the left leg and then jus t bend the knee for reflex examination, she was able to bend the knee and she was able to lift and ho ld the right leg off the bed without any difficulty there. Sensory examination, she does report a le ss response on the right compared to the left side. Reflexes are symmetric at 1+ in the upper extrem ities, 0 at the patellae and at the heels. Coordination appears intact with smooth movement in upper and lower extremities. Gait will be assessed with physical therapy and with gait belt present. Assessment: Ms. Liu is a 63-year-old patient who comes in to rule out for a stroke involving the r ight face, arm and leg in terms of numbness and weakness. However, her neurological examination is v ariable and not consistent with a large middle cerebral artery stroke, which may reproduce symptoms a s described. She does have a negative CT scan. When asked about work, she said she has been out in the heat and works and is worried about being at heat and she also did mention in discussion that she would want to be in the hospital for a few more days. She does have a brain MRI pending. Plan: 1.The patient may be observed with physical therapy to determine true weakness. 2.We will follow up on brain MRI to rule out an ischemic stroke. 3.Continue aspirin 81 mg daily. 4.Depressive management of stroke risk factors. 5.Folic acid 1 mg daily. 6.She may require a followup visit with Psychiatry for addressing the possibility of secondary gain and other issues related to not wanting to return to work. 7.She may be discharged home if the brain MRI is negative. She may follow up in Dr. Godoy's clin ic 1 month later. KASSIDY/CHIQUITA Voice ID: [id number] Report ID: [id number]
[2019-03-30] MEDS: FUROSEMIDE 20 MG TABLET PO SCH (21:00)
[2019-03-30] MEDS: MAG PO SCH (21:00)
[2019-03-30] MEDS: CAL PHOS PO SCH (21:00)
[2019-03-30] MEDS: POT CHLORIDE PO SCH (21:00)
[2019-03-30] MEDS: DIVALPROEX ER 250 MG TAB PO SCH (21:24)
[2019-03-30] MEDS: TRAZODONE 50 MG TABLET PO SCH (21:24)
[2019-03-31] MEDS: LEVOTHYROXINE SOD 0.075 MG TAB PO SCH (06:29)
[2019-03-31] MEDS: ATORVASTATIN 10 MG TAB PO SCH (08:14)
[2019-03-31] MEDS: CARVEDILOL 6.25 MG TAB PO SCH ×2 (08:14→16:58)
[2019-03-31] MEDS: VENLAFAXINE HCL XR 75 MG CAP PO SCH (08:14)
[2019-03-31] MEDS: GABAPENTIN 100 MG CAP PO SCH ×2 (08:14→21:00)
[2019-03-31] MEDS: ENOXAPARIN 30 MG/0.3 ML SQ SCH (08:14)
[2019-03-31] MEDS: HOME MED 1 EA UNK (Empagliflozin [Jardiance] 1 TAB) PO SCH (08:15)
--- NOTE | 2019-03-31 15:35 | DS ---
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 Godoy. Procedures: None. Discharge Diagnoses: 1. Right arm weakness, resolved, likely malingering. Cerebrovascular accident ruled out. 2. Diabetes mellitus type 2 with hyperglycemia, stable. 3. Essential hypertension. 4. Hyperlipidemia, stable. 5. Generalized anxiety and depression, stable. 6. Malingering. 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 The patient is one of Dr. Rao's patients. Hospital service covering over the weekend. The patient was observed for possible CVA. Workup was done including neurological consultation, MRI of the brain, head CT scan, and carotid artery ultrasound, all which were negative. No acute CVA was found. The patient's symptoms upon exam seem to be feigned. She states that she cannot open her eyes, when in fact on exam, she closes her eyes even harder , and when not being observed, the patient has been noticed to have both of her eyes open by multiple nursing staff including the charge nurse, Cary, and her primary nurse Talon at night. The patient was cleared from Dr. Godoy's perspective. He felt that this may be secondary gain. The patient was reluctant when she was told her examination findings and her imaging results, not wanting to go home. I explained to her that there is no medical reason for her to be hospitalized and that she would be discharged today. Medications: List as per medication reconciliation list. Condition: Stable. Activity: As tolerated. Diet: Diabetic. Followup: Follow up with PCP in 2-3 days. Follow up with neurologist, Dr. Godoy, in 2 weeks. Return to ER for worsening condition. Physical Examination: General: Awake, alert, oriented x3. Morbidly obese female. CV: S1, S2. No murmurs. Respiratory: Moving air well bilaterally. No wheezing. Gastrointestinal: Abdomen is soft, nontender, nondistended. Positive bowel sounds. Extremities: No clubbing, cyanosis, or edema. Neuro: Cranial nerves 2-12 intact grossly. Upon exam, the patient tried to close her eyes shut hard and does open her eyes when not being observed directly. ADDENDUM: While working with PT patient was unable to ambulate with right sided weakness. Discharge held. Spoke with physical therapist. GABRIELLA Voice ID: [id number] Report ID: [id number] ARSLAN
[2019-03-31] MEDS: TRAMADOL HCL 50 MG TAB PO PRN (20:59)
[2019-03-31] MEDS: TRAZODONE 50 MG TABLET PO SCH (20:59)
[2019-03-31] MEDS: CAL PHOS PO SCH (21:00)
[2019-03-31] MEDS: FUROSEMIDE 20 MG TABLET PO SCH (21:00)
[2019-03-31] MEDS: POT CHLORIDE PO SCH (21:00)
[2019-03-31] MEDS: MAG PO SCH (21:00)
[2019-03-31] MEDS: DIVALPROEX ER 250 MG TAB PO SCH (21:00)
[2019-04-01] MEDS: LEVOTHYROXINE SOD 0.075 MG TAB PO SCH (05:38)
[2019-04-01] MEDS: TRAMADOL HCL 50 MG TAB PO PRN ×3 (05:38→21:27)
[2019-04-01] MEDS: HOME MED 1 EA UNK (Empagliflozin [Jardiance] 1 TAB) PO SCH (09:00)
[2019-04-01] MEDS: ENOXAPARIN 30 MG/0.3 ML SQ SCH (09:26)
[2019-04-01] MEDS: VENLAFAXINE HCL XR 75 MG CAP PO SCH (09:27)
[2019-04-01] MEDS: GABAPENTIN 100 MG CAP PO SCH ×2 (09:27→21:26)
[2019-04-01] MEDS: ATORVASTATIN 10 MG TAB PO SCH (09:27)
[2019-04-01] MEDS: CARVEDILOL 6.25 MG TAB PO SCH ×2 (09:27→17:00)
--- NOTE | 2019-04-01 17:49 | PN ---
Date of Progress Note: 04/01/2019 History Of Present Illness: Patient seen and examined. Chart reviewed and case discussed with RN. The patient was discharged yesterday; however, when working with Physical Therapy, she was very weak on the right side, unable to ambulate. Physical therapist adjusting inpatient rehab. The patient today again complains about right-sided weakness. Medications: List reviewed. Physical Examination: Vital Signs: Temperature 97.4, heart rate 67, blood pressure 110/49, respirations 17, O2 95% on room air. General: Awake, alert, oriented x3, in some mild distress, morbidly obese female. CV: S1, S2. Irregular rate and rhythm. Peripheral pulses present. Respiratory: Moving air well bilaterally. No wheezing. Gastrointestinal: Abdomen is soft, nontender, nondistended. Positive bowel sounds. Extremities: No clubbing, cyanosis, or edema. Neuro: The patient apparently has weakness on the right lower extremity. Left lower extremity, and bilateral upper extremities strength is 5/5. Laboratory Data: Blood glucose levels ranging from 140-105. Assessment And Plan: A 63-year-old female with. 1. Right upper and lower extremity weakness. Cerebrovascular accident ruled out, unclear etiology. Patient may have some radiculopathy. We will need to obtain MRI of the lumbar spine and further neurological evaluation and the patient not safe for discharge at this time. We will reassess with PT today; and if able to ambulate with assist, may be able to discharge with PT at home. 2. Diabetes mellitus type 2 with hyperglycemia, stable. 3. Essential hypertension, stable. We will continue home medications. 4. Mixed hyperlipidemia, stable. 5. Generalized anxiety and depression, stable. 6. Morbid obesity. BMI of 48. 7. Malingering. Plan: Repeat PT eval. MRI lumbar spine, rule out radiculopathy. We will touch base with Neurology. SA/MODL Voice ID: [id number] Report ID: [id number] MTDMarjorie
[2019-04-01] MEDS: POT CHLORIDE PO SCH (21:00)
[2019-04-01] MEDS: MAG PO SCH (21:00)
[2019-04-01] MEDS: CAL PHOS PO SCH (21:00)
[2019-04-01] MEDS: FUROSEMIDE 20 MG TABLET PO SCH (21:00)
[2019-04-01] MEDS: TRAZODONE 50 MG TABLET PO SCH (21:26)
[2019-04-01] MEDS: DIVALPROEX ER 250 MG TAB PO SCH (21:26)
[2019-04-02] MEDS: TRAMADOL HCL 50 MG TAB PO PRN ×4 (03:46→22:07)
[2019-04-02] MEDS: LEVOTHYROXINE SOD 0.075 MG TAB PO SCH (05:33)
[2019-04-02] MEDS: HOME MED 1 EA UNK (Empagliflozin [Jardiance] 1 TAB) PO SCH (07:49)
[2019-04-02] MEDS: ENOXAPARIN 30 MG/0.3 ML SQ SCH (09:36)
[2019-04-02] MEDS: ATORVASTATIN 10 MG TAB PO SCH (09:36)
[2019-04-02] MEDS: GABAPENTIN 100 MG CAP PO SCH ×3 (09:36→22:07)
[2019-04-02] MEDS: CARVEDILOL 6.25 MG TAB PO SCH ×2 (09:36→16:04)
[2019-04-02] MEDS: VENLAFAXINE HCL XR 75 MG CAP PO SCH (09:36)
[2019-04-02] MEDS: ACETAMINOPHEN 325 MG TABLET PO PRN ×3 (11:44→23:31)
--- NOTE | 2019-04-02 11:59 | RAD REPORT ---
EXAM DESCRIPTION: RAD - Knee Right 2 View - 04/02/2019 11:52 am CLINICAL HISTORY: Right knee pain FINDINGS: No fracture or dislocation is seen. Marked osteoarthritis involves the knee. Diffuse edema is present within the subcutaneous tissues. Osteoporosis. No bony destructive lesions seen
[2019-04-02 12:48] LABS: Basophils % 0.2 % (0-1.3); Eosinophils % 0.3 % (0-4.4); Hematocrit 38.9 % (36.0-45.0); Lymphocytes % 20.7 % (15.3-44.8); MPV 8.1 fL (7.6-11.3); Monocytes % 11.6 % (3.3-12.3); RBC Red Blood Cell Count 4.04 M/uL (3.86-4.86)
[2019-04-02 13:06] LABS: Albumin 2.9 g/dL (3.4-5.0); Bilirubin Total 0.9 mg/dL (0.2-1.0); Protein, Total 7.2 g/dL (6.4-8.2)
--- NOTE | 2019-04-02 16:31 | PN ---
Date of Progress Note: 04/02/2019 Subjective: The patient is seen and examined. Chart reviewed and case discussed with RN. The patie nt is now complaining of right knee pain and did not do well with physical therapist yesterday. She also reports that she had a lumbar spine MRI recently at [facility]. We will obtain records and cancel MRI for today. Medications: List reviewed. Physical Examination: Vital Signs: Temperature 97.2, heart rate 71, blood pressure 131/75, respirations 17, O2 96% on room air. General: Awake, alert, oriented x3. Elderly female, morbidly obese. CV: S1, S2. Regular rate and rhythm. Peripheral pulses present. Respiratory: Moving air well bilaterally. No wheezing or stridor. Gastrointestinal: Abdomen is soft, nontender, nondistended. Positive bowel sounds. Extremities: No clubbing, cyanosis, or edema. Neuro: Right lower extremity weakness. Musculoskeletal: Right knee pain. Decreased range of motion. Laboratory Data: Blood glucose level is 92. Assessment And Plan: A 63-year-old female with: 1.Right arm and right lower extremity weakness, cerebrovascular accident ruled out, possibly lumbar radiculopathy. MRI of the lumbar spine was canceled as the patient states she has had 1 recently 2 w eeks ago at [facility]. We will obtain records. The patient does have spondylosis, which m ay be exacerbating her symptoms. We will follow up with neurological evaluation. The patient is sti ll unable to ambulate. May need to be placed in SNF. 2.Diabetes mellitus type 2 with hyperglycemia, non-insulin requiring, stable. We will continue slid ing scale insulin. Monitor Accu-Cheks. 3.Essential hypertension, stable on home medications. 4.Mixed hyperlipidemia. Continue statin. 5.Generalized anxiety and depression, stable. 6.Morbid obesity. BMI of 48. 7.Malingering. Plan: Dr. Rao to resume services. The patient will transfer to his service. /CHIQUITA Voice ID: [id number] Report ID: [id number]
[2019-04-02] MEDS: POT CHLORIDE PO SCH (21:00)
[2019-04-02] MEDS: CAL PHOS PO SCH (21:00)
[2019-04-02] MEDS: MAG PO SCH (21:00)
[2019-04-02] MEDS: FUROSEMIDE 20 MG TABLET PO SCH (22:07)
[2019-04-02] MEDS: TRAZODONE 50 MG TABLET PO SCH (22:07)
[2019-04-02] MEDS: DIVALPROEX ER 250 MG TAB PO SCH (22:07)
[2019-04-03] MEDS: LEVOTHYROXINE SOD 0.075 MG TAB PO SCH (05:31)
[2019-04-03] MEDS: ACETAMINOPHEN 325 MG TABLET PO PRN ×3 (05:31→20:47)
[2019-04-03] MEDS: HOME MED 1 EA UNK (Empagliflozin [Jardiance] 1 TAB) PO SCH (09:00)
[2019-04-03] MEDS: VENLAFAXINE HCL XR 75 MG CAP PO SCH (10:43)
[2019-04-03] MEDS: TRAMADOL HCL 50 MG TAB PO PRN ×2 (10:44→22:49)
[2019-04-03] MEDS: ATORVASTATIN 10 MG TAB PO SCH (10:45)
[2019-04-03] MEDS: GABAPENTIN 100 MG CAP PO SCH ×3 (10:45→20:48)
[2019-04-03] MEDS: CARVEDILOL 6.25 MG TAB PO SCH ×2 (10:45→19:45)
[2019-04-03] MEDS: ENOXAPARIN 30 MG/0.3 ML SQ SCH (10:46)
[2019-04-03] MEDS: FUROSEMIDE 20 MG TABLET PO SCH (13:06)
[2019-04-03] MEDS: CAL PHOS PO SCH (20:48)
[2019-04-03] MEDS: TRAZODONE 50 MG TABLET PO SCH (20:48)
[2019-04-03] MEDS: MAG PO SCH (20:48)
[2019-04-03] MEDS: POT CHLORIDE PO SCH (20:48)
[2019-04-03] MEDS: DIVALPROEX ER 250 MG TAB PO SCH (20:48)
[2019-04-03] MEDS ORDERED: GLUCAGON 1 MG/VIAL IM PRN (20:59)
[2019-04-03] MEDS ORDERED: D50W 25 GM/50 ML SYRINGE IV PRN (20:59)
[2019-04-03] MEDS: INSULIN -REGULAR HUMAN 50 UNIT/0.5 ML ML SQ SCH (21:00)
--- NOTE | 2019-04-04 01:10 | PN ---
The patient still complains of weakness on the right side. I sat down and spoke to her regarding her issues. The patient already had MRI, MRA, CAT scan of the head, and carotid ultrasound as well as n eurology consultation. I will speak to Dr. Godoy and see whether any additional workup or managem ent is necessary to resolve. The patient does not have any fever, chills, rigors, or other acute systemic symptoms. ILENE/CHIQUITA Voice ID: [id number] Report ID: [id number]
[2019-04-04] MEDS: LEVOTHYROXINE SOD 0.075 MG TAB PO SCH (04:46)
[2019-04-04] MEDS: ACETAMINOPHEN 325 MG TABLET PO PRN ×2 (04:46→13:52)
[2019-04-04] MEDS: FUROSEMIDE 20 MG TABLET PO SCH ×2 (09:00→11:09)
[2019-04-04] MEDS: HOME MED 1 EA UNK (Empagliflozin [Jardiance] 1 TAB) PO SCH (09:00)
[2019-04-04] MEDS: CYCLOBENZAPRINE 10 MG TAB PO PRN ×2 (09:13→17:20)
[2019-04-04] MEDS: VENLAFAXINE HCL XR 75 MG CAP PO SCH (09:13)
[2019-04-04] MEDS: GABAPENTIN 100 MG CAP PO SCH ×3 (09:13→21:30)
[2019-04-04] MEDS: ATORVASTATIN 10 MG TAB PO SCH (09:13)
[2019-04-04] MEDS: CARVEDILOL 6.25 MG TAB PO SCH ×2 (09:13→17:21)
[2019-04-04] MEDS: ENOXAPARIN 30 MG/0.3 ML SQ SCH (09:14)
[2019-04-04] MEDS: INSULIN -REGULAR HUMAN 50 UNIT/0.5 ML ML SQ SCH ×4 (09:16→21:00)
[2019-04-04] MEDS: CAL PHOS PO SCH (21:00)
[2019-04-04] MEDS: MAG PO SCH (21:00)
[2019-04-04] MEDS: POT CHLORIDE PO SCH (21:00)
[2019-04-04] MEDS: DIVALPROEX ER 250 MG TAB PO SCH (21:30)
[2019-04-04] MEDS: TRAZODONE 50 MG TABLET PO SCH (21:30)
[2019-04-05] MEDS: CYCLOBENZAPRINE 10 MG TAB PO PRN ×2 (00:33→23:43)
--- NOTE | 2019-04-05 00:55 | PN ---
The patient still complains of weakness on the right side of the body. The patient claims that she l marysol alone and she would not be able to take care of herself. She is afraid of falling. I discussed this issue with the staff nurse need to consider in discharge planning. A note was left for the soc ial worker to look into this issue to see whether she should actually be transferred to a nursing [facility] for inpatient physical therapy and observation. ILENE/CHIQUITA Voice ID: [id number] Report ID: [id number]
[2019-04-05] MEDS: LEVOTHYROXINE SOD 0.075 MG TAB PO SCH (06:34)
[2019-04-05] MEDS: ACETAMINOPHEN 325 MG TABLET PO PRN ×2 (06:35→12:44)
[2019-04-05] MEDS: INSULIN -REGULAR HUMAN 50 UNIT/0.5 ML ML SQ SCH ×4 (07:30→21:00)
[2019-04-05] MEDS: HOME MED 1 EA UNK (Empagliflozin [Jardiance] 1 TAB) PO SCH (09:00)
[2019-04-05] MEDS: ENOXAPARIN 30 MG/0.3 ML SQ SCH (10:07)
[2019-04-05] MEDS: CARVEDILOL 6.25 MG TAB PO SCH ×2 (10:08→18:24)
[2019-04-05] MEDS: VENLAFAXINE HCL XR 75 MG CAP PO SCH (10:08)
[2019-04-05] MEDS: FUROSEMIDE 20 MG TABLET PO SCH (10:08)
[2019-04-05] MEDS: ATORVASTATIN 10 MG TAB PO SCH (10:08)
[2019-04-05] MEDS: GABAPENTIN 100 MG CAP PO SCH ×3 (10:09→21:24)
[2019-04-05] MEDS: MAG PO SCH (21:00)
[2019-04-05] MEDS: POT CHLORIDE PO SCH (21:00)
[2019-04-05] MEDS: CAL PHOS PO SCH (21:00)
[2019-04-05] MEDS: DIVALPROEX ER 250 MG TAB PO SCH (21:23)
[2019-04-05] MEDS: TRAZODONE 50 MG TABLET PO SCH (21:24)
--- NOTE | 2019-04-05 21:32 | PN ---
The patient still complains of weakness. However, she claims that she is getting better. In view of her social situation of living by herself, there is a plan for correction placement, so the patien t can get her physical therapy and get nursing support. Pending that the patient will be continued o n the same management. Physical therapy is in progress. ILENE/CHIQUITA Voice ID: [id number] Report ID: [id number]
[2019-04-06 01:40] VITALS: O2SAT 96
[2019-04-06] MEDS: LEVOTHYROXINE SOD 0.075 MG TAB PO SCH (06:33)
[2019-04-06] MEDS: INSULIN -REGULAR HUMAN 50 UNIT/0.5 ML ML SQ SCH ×2 (07:30→11:30)
[2019-04-06] MEDS: VENLAFAXINE HCL XR 75 MG CAP PO SCH (08:31)
[2019-04-06] MEDS: FUROSEMIDE 20 MG TABLET PO SCH (08:31)
[2019-04-06] MEDS: CARVEDILOL 6.25 MG TAB PO SCH (08:32)
[2019-04-06] MEDS: ATORVASTATIN 10 MG TAB PO SCH (08:32)
[2019-04-06] MEDS: ENOXAPARIN 30 MG/0.3 ML SQ SCH (08:33)
[2019-04-06] MEDS: HOME MED 1 EA UNK (Empagliflozin [Jardiance] 1 TAB) PO SCH (08:33)
[2019-04-06] MEDS: GABAPENTIN 100 MG CAP PO SCH (08:33)
[2019-04-06 13:16] VITALS: BP 152/64; TEMP 97.4
== END 2019-04-06 15:03 | DRG 552 ==
LOC: 2ND 12:31 → OBSVTOIN 04-01 11:32
PROVIDERS: ADMIT Internal Medicine; ATTEND Internal Medicine
DX: M47.26 Other spondylosis with radiculopathy, lumbar region (principal); Z68.42 Body mass index [BMI] 45.0-49.9, adult; R47.9 Unspecified speech disturbances; I11.0 Hypertensive heart disease with heart failure; I50.9 Heart failure, unspecified; F32.9 Major depressive disorder, single episode, unspecified; E78.2 Mixed hyperlipidemia; G47.33 Obstructive sleep apnea (adult) (pediatric); E11.65 Type 2 diabetes mellitus with hyperglycemia; Z76.5 Malingerer [conscious simulation]; F41.1 Generalized anxiety disorder; E66.01 Morbid (severe) obesity due to excess calories
CPT/HCPCS: 36415; 70450; 70544; 70551; 80053; 80061; 81003; 82962; 85025; 93880; 97110; 97116; 97163; 97530; G0378; J1650

== ENCOUNTER 2020-01-30 05:41 | Emergency (ER) | payer OTHER, SELFPAY ==
--- OUTSIDE RECORDS SUMMARY | 2020-01-30 05:46 | XMS REPORT ---
:1955 Author Organization eClinicalWorks Care Team Providers Name Role Phone Deepthi Mcleod Provider Role Unavailable Allergies No Known Allergies Problems Problem Type Condition Code Onset Dates Condition Statu s Problem Allergic rhinitis due to pollen J30.1 Active Problem Nasal airway obstruction J34.89 Act myah Problem Cellulitis of face L03.211 Active Problem Arthralgia of bilateral M26.623 Acti ve temporomandibular joint Problem Sinusitis - Chronic J32.8 Active Problem Sinusitis - Chronic J32.8 Active Problem Nasal congestion R09.81 Active Problem Methicillin susceptible B95.61 Acti ve Staphylococcus aureus infection as the cause of diseases classified elsewhere Problem Cough R05 Active Problem Wheezing R06.2 Active Problem Hearing loss - Sensorineural H90.3 Active Bilateral Problem Obstructive sleep apnea G47.33 Acti ve Medications No Known Medications Results No Known Results Summary Purpose eClinicalWorks Submission
--- OUTSIDE RECORDS SUMMARY | 2020-01-30 05:46 | XMS REPORT ---
:1955 [facility] Team Providers Name Role Phone [...] Problem Obstructive sleep apnea G47.33 Acti ve Assessment Nasal airway obstruction J34.89 Act myah Assessment Sinusitis - Chronic J32.8 Active Problem Arthralgia of bilateral M26.623 Acti ve temporomandibular joint Problem Sinusitis - Chronic J32.8 Active Medications Medication Code Code Instructions Start End Status Dosage System Date Date Bactroban [facility] 73951616253 2 % Nasally Oct Active 1 Twice a day 23, 20, application 2017 2017 to affected area Bactrim ND 25917763978 400-80 MG Oct Active 1 tablet Orally Once a 30, 13, day 2017 2017 Mupirocin [facility] 82818171532 2 % Externally Active 1 Three times a applicatio n day to affected area Levothyroxine Sodium ND 87015810352 200 MCG Orally Active 1 tablet Once a day Ferrous Gluconate ND 03292130197 324 (38 Fe) MG Act myah not defined Orally Augmentin [facility] 66785101017 Active not define d ProAir HFA [facility] 28985279117 108 (90 Base) Active 2 p uffs as MCG/ACT needed Inhalation every 4 hrs Trazodone HCl ND 26644698039 150 MG Orally Active 1 tablet at Once a day bedtime Hydrochlorothiazide [facility] 93240056836 50 MG Orally Act myah 1 tablet Once a day Medrol (Ranjeet) ND 08423954870 4 MG Orally Aug Active as directed 2016 Metformin HCl ND 63767957015 500 MG Orally Active 1 tablet Twice a day with meals Pravastatin Sodium ND 62821658997 40 MG Orally Acti ve 1 tablet Once a day Depakote ER ND 23058337673 500 MG Orally Active no t defined Bactrim [facility] 49495265327 400-80 MG Oct Active 1 tablet Orally Once a , 12, day 2017 2017 Medrol (Ranjeet) [facility] 07660762785 4 MG Orally Oct Active as directed 2015 Results No Known Results Summary Purpose eClinicalWorks Submission
--- OUTSIDE RECORDS SUMMARY | 2020-01-30 05:46 | XMS REPORT ---
[...] of bilateral M26.623 Acti ve temporomandibular joint Assessment Methicillin susceptible B95.61 Acti ve Staphylococcus aureus infection as the cause of diseases classified elsewhere Problem Sinusitis - Chronic J32.8 Active Medications Medication Code Code Instructions Start End Status Dosage System Date Date Bactroban ND 68170159202 2 % Nasally Oct Active 1 Twice a day , , application 2017 2017 to affected area Medrol (Ranjeet) NDC 27532959926 4 MG Orally Oct Active as directed 2015 Ferrous Gluconate ND 68988413375 324 (38 Fe) MG Act myah not defined Orally Pravastatin Sodium ND 52082696858 40 MG Orally Acti ve 1 tablet Once a day ProAir HFA ND 74272634224 108 (90 Base) Active 2 p uffs as MCG/ACT needed Inhalation every 4 hrs Medrol (Ranjeet) NDC 17292494435 4 MG Orally Aug Active as directed 2016 Depakote ER ND 67242597950 500 MG Orally Active no t defined Mupirocin ND 89933686619 2 % Externally Active 1 Three times a applicatio n day to affected area Hydrochlorothiazide [facility] 2001 87160433527 50 MG Orally Act myah 1 tablet Once a day Levothyroxine Sodium [facility] 07678987080 200 MCG Orally Active 1 tablet Once a day Trazodone HCl [facility] 98789350184 150 MG Orally Active 1 tablet at Once a day bedtime Augmentin [facility] 2001 31568491331 Active not define d Bactrim [facility] 2001 03367537968 400-80 MG Oct Active 1 tablet Orally Once a , , 2017 Bactrim [facility] 2001 09330773180 400-80 MG Oct Active 1 tablet Orally Once a , 2017 Metformin HCl [facility] 2001 27228046837 500 MG Orally Active 1 tablet Twice a day with meals Results No Known Results Summary Purpose eClinicalWorks Submission
--- OUTSIDE RECORDS SUMMARY | 2020-01-30 05:46 | XMS REPORT ---
:1955 Author Organization [facility] t Address [address] [place] [address] Care Team Providers Name Role Phone GISELLE GAONA Unavailable Unavailable GIOVANNI SPRING Unavailable Unavailable Payers Payer Name Policy Type Policy Number Effective Date Expiration D ate Problems This patient has no known problems. Allergies, Adverse Reactions, Alerts Allergy Allergy Status Severity Reaction(s) Onset Inactive Treating C omments Name Type Date Date Clinician IODINE DA Active U 2003-05 CONTRAST - 00:00:0 0 No Known DA Active U 2003-05 Drug - Allergies 00:00:0 0 No Known DA Active U 2003-05 Food - Allergies 00:00:0 0 No Known DA Active U 2003-05 Other -11 Allergies 00:00:0 0 iodine DA Active U 1997-05 00:00:0 0 Medications This patient has no known medications. Results Test Description Test Time Test Comments Text Results Atomic Results Result Comments BLOOD CULTURE 2019-03-04 20:01:00 Test Item Value Reference Range Comments CULTURE (BEAKER) (test code = 1095) No growth in 5 days BLOOD [id number] 20:01:00 Test Item Value Reference Range Comments CULTURE (BEAKER) (test code = 1095) No growth in 5 days POCT-GLUCOSE [id number] 11:57:00 Test Item Value Reference Range Comments POC-GLUCOSE METER (BEAKER) 117 mg/dL 70-[address] [facility] [address] (test code = 1538) [facility] [address]30 POCT-GLUCOSE [id number] 07:57:00 Test Item Value Reference Range Comments POC-GLUCOSE METER (BEAKER) 110 mg/dL 70-[address] [facility] [address] [facility] (test code = 1538) [place] [address]30 POCT-GLUCOSE [id number] 21:11:00 Test Item Value Reference Range Comments POC-GLUCOSE METER (BEAKER) 100 mg/dL 70-[address] [facility] [address] [facility] (test code = 1538) [place] [address]30 MR, SPINE, LUMBAR, WITHOUT [id number] 20:59:00FINAL REPORT MR, SPINE, LUMBAR, WITHOUT CONTRAST [...] with associated loss of disc space height. Evaluat ion of the individual levels demonstrates: L1/L2: Asymmetric [...] degenerative facet and endplate changes. Signed: JR Henry Robert MDReport Verified Date/Time: 03/02/2019 20:59:13 Reading Location: [facility] Radiology Reading Room POCT-GLUCOSE [id number] 18:37:00 Test Item Value Reference Range Comments POC-GLUCOSE METER (BEAKER) 130 mg/dL 70-110 TESTE D AT [address] (test code = 1538) [place] [address]30 POCT-GLUCOSE [id number] 12:03:00 Test Item Value Reference Range Comments POC-GLUCOSE METER (BEAKER) 105 mg/dL 70-110 TESTE D AT [address] (test code = 1538) [place] [address]30 POCT-GLUCOSE [id number] 06:55:00 Test Item Value Reference Range Comments POC-GLUCOSE METER (BEAKER) 126 mg/dL 70-110 TESTE D AT [address] (test code = 1538) [place] [address]30 POCT-GLUCOSE [id number] 20:31:00 Test Item Value Reference Range Comments POC-GLUCOSE METER (BEAKER) 98 mg/dL 70-110 TESTE D AT [address] (test code = 1538) [place] [address], SPINE, LUMBAR, WO [id number] 19:49:00FINAL REPORT CT, SPINE, LUMBAR, WO CONTRAST INDICATION: bowel and bladder inco ntinent COMPARISON: None TECHNIQUE: Contiguous noncontrast axial images [...] JR Henry Robert MDReport Verified Date/Time: 03/01/2019 19:49:57 Reading Location: [address] Neuro Reading Room POCT-GLUCOSE [id number] 16:35:00 Test Item Value Reference Range Comments POC-GLUCOSE METER (BEAKER) 172 mg/dL 70-110 TESTE D AT [address] (test code = 1538) [place] [address]30 POCT-GLUCOSE [id number] 11:56:00 Test Item Value Reference Range Comments POC-GLUCOSE METER (BEAKER) 202 mg/dL 70-110 TESTE D AT [address] (test code = 1538) [place] [address]30 POCT-GLUCOSE [id number] 07:34:00 Test Item Value Reference Range Comments POC-GLUCOSE METER (BEAKER) 135 mg/dL 70-110 TESTE D AT [address] (test code = 1538) [place] [address]30 CALCIUM, [id number] 06:34:00 Test Item Value Reference Range Comments CALCIUM IONIZED (BEAKER) (test code = 698) 1.06 mmol/L 1.12- 1.27 PH, BLOOD (BEAKER) (test code = 1810) 7.37 [id number] 05:46:00 Test Item Value Reference Range Comments MAGNESIUM (BEAKER) (test code = 627) 2.1 mg/dL 1.6-2.6 BASIC METABOLIC [id number] 05:46:00 Test Item Value Reference Range Comments SODIUM (BEAKER) (test 141 meq/L 136-145 code = 381) POTASSIUM (BEAKER) (test 4.3 meq/L 3.5-5.1 code = 379) CHLORIDE (BEAKER) (test 110 meq/L 98-107 code = 382) CO2 (BEAKER) (test code = 25 meq/L 22-29 355) BLOOD UREA NITROGEN 16 mg/dL 7-21 (BEAKER) (test code = 354) CREATININE (BEAKER) (test 0.71 mg/dL 0.57-1.25 code = 358) GLUCOSE RANDOM (BEAKER) 112 mg/dL 70-105 (test code = 652) CALCIUM (BEAKER) (test 8.4 mg/dL 8.4-10.2 code = 697) EGFR (BEAKER) (test code 83 mL/min/1.73 sq m EST IMATED GFR IS NOT = 1092) ACCURATE CREA TININE CLEARANCE IN PRE DICTING GLOMERULAR FILTR ATION RATE. ESTIMATED GFR IS NOT APPLICABLE F OR DIALYSIS PATIENT S. CBC W/PLT COUNT & AUTO [id number] 05:29:00 Test Item Value Reference Range Comments WHITE BLOOD CELL COUNT (BEAKER) (test code = 6.2 K/ L 3.5 -10.5 775) RED BLOOD CELL COUNT (BEAKER) (test code = 761) 3.57 M/ L 3.93-5.22 HEMOGLOBIN (BEAKER) (test code = 410) 11.0 GM/DL 11.2-15.7 HEMATOCRIT (BEAKER) (test code = 411) 36.2 % 34.1-44.9 MEAN CORPUSCULAR VOLUME (BEAKER) (test code = 101.4 fL 79 .4-94.8 753) MEAN CORPUSCULAR HEMOGLOBIN (BEAKER) (test code 30.8 pg 25.6-32.2 = 751) MEAN CORPUSCULAR HEMOGLOBIN CONC (BEAKER) (test 30.4 GM/DL 32.2-35.5 code = 752) RED CELL DISTRIBUTION WIDTH (BEAKER) (test code 16.2 % 11.7-14.4 = 412) PLATELET COUNT (BEAKER) (test code = 756) 222 K/CU MM 150-45 0 MEAN PLATELET VOLUME (BEAKER) (test code = 754) 9.5 fL 9.4-12.3 NUCLEATED RED BLOOD CELLS (BEAKER) (test code = 0 /100 WBC 0-0 413) NEUTROPHILS RELATIVE PERCENT (BEAKER) (test code 43 % = 429) LYMPHOCYTES RELATIVE PERCENT (BEAKER) (test code 45 % = 430) MONOCYTES RELATIVE PERCENT (BEAKER) (test code = 9 % 431) EOSINOPHILS RELATIVE PERCENT (BEAKER) (test code 3 % = 432) BASOPHILS RELATIVE PERCENT (BEAKER) (test code = 1 % 437) NEUTROPHILS ABSOLUTE COUNT (BEAKER) (test code = 2.63 K/ L 1.56-6.13 670) LYMPHOCYTES ABSOLUTE COUNT (BEAKER) (test code = 2.75 K/ L 1.18-3.74 414) MONOCYTES ABSOLUTE COUNT (BEAKER) (test code = 0.55 K/ L 0 .24-0.36 415) EOSINOPHILS ABSOLUTE COUNT (BEAKER) (test code = 0.18 K/ L 0.04-0.36 416) BASOPHILS ABSOLUTE COUNT (BEAKER) (test code = 0.03 K/ L 0 .01-0.08 417) IMMATURE GRANULOCYTES-RELATIVE PERCENT (BEAKER) 0 % 0-1 (test code = 2801) LACTIC ACID, [id number] 05:29:00 Test Item Value Reference Range Comments LACTATE BLOOD VENOUS (2) (BEAKER) (test code = 1.1 mmol/L 0 .5-2.2 2872) POCT-GLUCOSE [id number] 20:48:00 Test Item Value Reference Range Comments POC-GLUCOSE METER (BEAKER) 109 mg/dL 70-110 TESTE D AT [address] (test code = 1538) [place] [address] POCT-GLUCOSE [id number] 16:53:00 Test Item Value Reference Range Comments POC-GLUCOSE METER (BEAKER) 117 mg/dL 70-110 TESTE D AT [address] (test code = 1538) [place] [address]30 POCT-GLUCOSE [id number] 11:55:00 Test Item Value Reference Range Comments POC-GLUCOSE METER (BEAKER) 173 mg/dL 70-110 TESTE D AT [address] (test code = 1538) [place] [address]30 POCT-GLUCOSE [id number] 08:46:00 Test Item Value Reference Range Comments POC-GLUCOSE METER (BEAKER) 120 mg/dL 70-[address] [facility] [address] (test code = 1538) [place] [address] HEMOGLOBIN [id number] 07:05:00 Test Item Value Reference Range Comments HEMOGLOBIN A1C (BEAKER) (test code = 368) 6.9 % 4.3-6. 1 T4, [id number] 06:32:00 Test Item Value Reference Range Comments FREE T4 (BEAKER) (test code = 655) 1.00 ng/dL 0.70-1.48 TSH/FREE T4 IF [id number] 05:26:00 Test Item Value Reference Range Comments THYROID STIMULATING HORMONE (BEAKER) (test code 5.10 uIU/mL 0.35-4.94 = 772) VITAMIN B12 AND [id number] 05:20:00 Test Item Value Reference Range Comments VITAMIN B12 (BEAKER) (test code = 774) 1226 pg/mL 213-816 FOLATE (BEAKER) (test code = 362) 14.8 ng/mL >=7.0 BASIC METABOLIC [id number] 05:17:00 Test Item Value Reference Range Comments SODIUM (BEAKER) (test 141 meq/L 136-145 code = 381) POTASSIUM (BEAKER) (test 4.0 meq/L 3.5-5.1 code = 379) CHLORIDE (BEAKER) (test 109 meq/L 98-107 code = 382) CO2 (BEAKER) (test code = 24 meq/L 22-29 355) BLOOD UREA NITROGEN 21 mg/dL 7-21 (BEAKER) (test code = 354) CREATININE (BEAKER) (test 0.78 mg/dL 0.57-1.25 code = 358) GLUCOSE RANDOM (BEAKER) 106 mg/dL 70-105 (test code = 652) CALCIUM (BEAKER) (test 7.8 mg/dL 8.4-10.2 code = 697) EGFR (BEAKER) (test code 74 mL/min/1.73 sq m EST IMATED GFR IS NOT = 1092) ACCURATE CREA TININE CLEARANCE IN PRE DICTING GLOMERULAR FILTR ATION RATE. ESTIMATED GFR IS NOT APPLICABLE F OR DIALYSIS PATIENT S. CALCIUM, [id number] 05:14:00 Test Item Value Reference Range Comments CALCIUM IONIZED (BEAKER) (test code = 698) 0.93 mmol/L 1.12- 1.27 PH, BLOOD (BEAKER) (test code = 1810) 7.49 [id number] 04:59:00 Test Item Value Reference Range Comments PHOSPHORUS (BEAKER) (test code = 604) 4.2 mg/dL 2.3-4.7 [id number] 04:59:00 Test Item Value Reference Range Comments MAGNESIUM (BEAKER) (test code = 627) 2.0 mg/dL 1.6-2.6 LACTIC ACID, [id number] 04:55:00 Test Item Value Reference Range Comments LACTATE BLOOD VENOUS (2) (BEAKER) (test code = 1.8 mmol/L 0 .5-2.2 2872) CBC W/PLT COUNT & AUTO [id number] 04:35:00 Test Item Value Reference Range Comments WHITE BLOOD CELL COUNT (BEAKER) (test code = 7.0 K/ L 3.5 -10.5 775) RED BLOOD CELL COUNT (BEAKER) (test code = 761) 3.60 M/ L 3.93-5.22 HEMOGLOBIN (BEAKER) (test code = 410) 11.1 GM/DL 11.2-15.7 HEMATOCRIT (BEAKER) (test code = 411) 36.6 % 34.1-44.9 MEAN CORPUSCULAR VOLUME (BEAKER) (test code = 101.7 fL 79 .4-94.8 753) MEAN CORPUSCULAR HEMOGLOBIN (BEAKER) (test code 30.8 pg 25.6-32.2 = 751) MEAN CORPUSCULAR HEMOGLOBIN CONC (BEAKER) (test 30.3 GM/DL 32.2-35.5 code = 752) RED CELL DISTRIBUTION WIDTH (BEAKER) (test code 16.3 % 11.7-14.4 = 412) PLATELET COUNT (BEAKER) (test code = 756) 248 K/CU MM 150-45 0 MEAN PLATELET VOLUME (BEAKER) (test code = 754) 9.2 fL 9.4-12.3 NUCLEATED RED BLOOD CELLS (BEAKER) (test code = 0 /100 WBC 0-0 413) NEUTROPHILS RELATIVE PERCENT (BEAKER) (test code 45 % = 429) LYMPHOCYTES RELATIVE PERCENT (BEAKER) (test code 44 % = 430) MONOCYTES RELATIVE PERCENT (BEAKER) (test code = 8 % 431) EOSINOPHILS RELATIVE PERCENT (BEAKER) (test code 3 % = 432) BASOPHILS RELATIVE PERCENT (BEAKER) (test code = 0 % 437) NEUTROPHILS ABSOLUTE COUNT (BEAKER) (test code = 3.11 K/ L 1.56-6.13 670) LYMPHOCYTES ABSOLUTE COUNT (BEAKER) (test code = 3.08 K/ L 1.18-3.74 414) MONOCYTES ABSOLUTE COUNT (BEAKER) (test code = 0.53 K/ L 0 .24-0.36 415) EOSINOPHILS ABSOLUTE COUNT (BEAKER) (test code = 0.22 K/ L 0.04-0.36 416) BASOPHILS ABSOLUTE COUNT (BEAKER) (test code = 0.03 K/ L 0 .01-0.08 417) IMMATURE GRANULOCYTES-RELATIVE PERCENT (BEAKER) 0 % 0-1 (test code = 2801) POCT-GLUCOSE [id number] 21:40:00 Test Item Value Reference Range Comments POC-GLUCOSE METER (BEAKER) 133 mg/dL 70-110 TESTE D AT [address] (test code = 1538) [place] [address] LACTIC ACID, [id number] 19:18:00 Test Item Value Reference Range Comments LACTATE BLOOD VENOUS (2) (BEAKER) (test code = 3.6 mmol/L 0 .5-2.2 2872) POCT-GLUCOSE [id number] 18:17:00 Test Item Value Reference Range Comments POC-GLUCOSE METER (BEAKER) 95 mg/dL 70-110 TESTE D AT [address] (test code = 1538) [place] [address]30 LACTIC ACID, [id number] 15:26:00 Test Item Value Reference Range Comments LACTATE BLOOD VENOUS (2) 1.7 mmol/L 0.5-2.2 Specime n slightly hemolyzed (BEAKER) (test code = 2872) [id number] 14:38:00 Test Item Value Reference Range Comments PROCALCITONIN (BEAKER) (test code = 3036) 0.05 ng/mL <0.05 SEPSIS RISK (ng/mL)Low: 0.05-0.50Intermediate: 0.51-2.00High: >=2.01U/S, [id number] 14:19:00Reason for exam:->CYSTITISFINAL REPORT INDICATION:Urinary tract infection (cystitis). COMPARISON: None.TECHNIQUE: Renal ultrasound exam limited.Pelvic ultrasound exam. FINDINGS / IMPRESSION:Right kidney measures 13.1 x 5.8 x 5.6 cm.Left kidney measures 13.7 x 6.2 x 6.0 cm.Cortical thickness appears normal in both kidneys.No hydronephrosis, renal mass, or renal stone demonstrated.Arterial and venous flow demonstrated in both renal aakash.Bladder not visualized.Patient is status post hysterectomy. Signed:Ra Smallwood Verified Date/Time: 02/27/2019 14:19:25 Reading Location: [address] Ultrasound Reading Room U/S, RENAL, [id number] 14:19:00Reason for exam:->CYSTITISFINAL REPORT INDICATION:Urinary tract infection (cystitis). COMPARISON: None.TECHNIQUE: Renal ultrasound exam limited.Pelvic ultrasound exam. FINDINGS / IMPRESSION:Right kidney measures 13.1 x 5.8 x 5.6 cm.Left kidney measures 13.7 x 6.2 x 6.0 cm.Cortical thickness appears normal in both kidneys.No hydronephrosis, renal mass, or renal stone demonstrated.Arterial and venous flow demonstrated in both renal aakash.Bladder not visualized.Patient is status post hysterectomy. Signed:Ra Smallwood Verified Date/Time: 02/27/2019 14:19:25 Reading Location: [address] Ultrasound Reading Room ALYSIS W/ REFLEX URINE [id number] 12:20:00 Test Item Value Reference Range Comments COLOR (BEAKER) (test code = 470) Yellow CLARITY (BEAKER) (test code = 469) Clear SPECIFIC GRAVITY UA (BEAKER) (test code = 468) 1.032 1 .001-1.035 PH UA (BEAKER) (test code = 467) 5.5 5.0-8.0 PROTEIN UA (BEAKER) (test code = 464) Negative Negative GLUCOSE UA (BEAKER) (test code = 365) >1000 mg/dL Negative KETONES UA (BEAKER) (test code = 371) Negative Negative BILIRUBIN UA (BEAKER) (test code = 462) Negative Negative BLOOD UA (BEAKER) (test code = 461) Negative Negative NITRITE UA (BEAKER) (test code = 465) Negative Negative LEUKOCYTE ESTERASE UA (BEAKER) (test code = 466) Negative Negative UROBILINOGEN UA (BEAKER) (test code = 463) 0.2 mg/dL 0.2-1 .0 RBC UA (BEAKER) (test code = 519) < /HPF WBC UA (BEAKER) (test code = 520) 1 /HPF SQUAMOUS EPITHELIAL (BEAKER) (test code = 516) 7 /HPF SOURCE(BEAKER) (test code = 2795) HEPATIC FUNCTION [id number] 12:11:00 Test Item Value Reference Range Comments TOTAL PROTEIN (BEAKER) (test code = 770) 7.4 gm/dL 6.0-8.3 ALBUMIN (BEAKER) (test code = 1145) 3.8 g/dL 3.5-5.0 BILIRUBIN TOTAL (BEAKER) (test code = 377) 0.4 mg/dL 0.2-1 .2 BILIRUBIN DIRECT (BEAKER) (test code = 706) 0.2 mg/dL 0.1- 0.5 ALKALINE PHOSPHATASE (BEAKER) (test code = 346) 93 U/L 40-150 AST (SGOT) (BEAKER) (test code = 353) 44 U/L 5-34 ALT (SGPT) (BEAKER) (test code = 347) 15 U/L 6-55 BASIC METABOLIC [id number] 12:11:00 Test Item Value Reference Range Comments SODIUM (BEAKER) (test 140 meq/L 136-145 code = 381) POTASSIUM (BEAKER) (test 4.0 meq/L 3.5-5.1 code = 379) CHLORIDE (BEAKER) (test 104 meq/L 98-107 code = 382) CO2 (BEAKER) (test code = 27 meq/L 22-29 355) BLOOD UREA NITROGEN 24 mg/dL 7-21 (BEAKER) (test code = 354) CREATININE (BEAKER) (test 0.89 mg/dL 0.57-1.25 code = 358) GLUCOSE RANDOM (BEAKER) 134 mg/dL 70-105 (test code = 652) CALCIUM (BEAKER) (test 8.5 mg/dL 8.4-10.2 code = 697) EGFR (BEAKER) (test code 64 mL/min/1.73 sq m EST IMATED GFR IS NOT = 1092) ACCURATE CREA TININE CLEARANCE IN PRE DICTING GLOMERULAR FILTR ATION RATE. ESTIMATED GFR IS NOT APPLICABLE F OR DIALYSIS PATIENT S. LACTIC ACID, [id number] 12:09:00 Test Item Value Reference Range Comments LACTATE BLOOD VENOUS (2) 2.3 mmol/L 0.5-2.2 Specime n slightly hemolyzed (BEAKER) (test code = 2872) KETONE, [id number] 11:53:00 Test Item Value Reference Range Comments KETONES, BLOOD (BEAKER) (test code = 1103) 0.1 mmol/L <0.4 CBC W/PLT COUNT & AUTO [id number] 11:53:00 Test Item Value Reference Range Comments WHITE BLOOD CELL COUNT (BEAKER) (test code = 8.5 K/ L 3.5 -10.5 775) RED BLOOD CELL COUNT (BEAKER) (test code = 761) 3.95 M/ L 3.93-5.22 HEMOGLOBIN (BEAKER) (test code = 410) 12.2 GM/DL 11.2-15.7 HEMATOCRIT (BEAKER) (test code = 411) 39.1 % 34.1-44.9 MEAN CORPUSCULAR VOLUME (BEAKER) (test code = 99.0 fL 79 .4-94.8 753) MEAN CORPUSCULAR HEMOGLOBIN (BEAKER) (test code 30.9 pg 25.6-32.2 = 751) MEAN CORPUSCULAR HEMOGLOBIN CONC (BEAKER) (test 31.2 GM/DL 32.2-35.5 code = 752) RED CELL DISTRIBUTION WIDTH (BEAKER) (test code 16.1 % 11.7-14.4 = 412) PLATELET COUNT (BEAKER) (test code = 756) 279 K/CU MM 150-45 0 MEAN PLATELET VOLUME (BEAKER) (test code = 754) 9.6 fL 9.4-12.3 NUCLEATED RED BLOOD CELLS (BEAKER) (test code = 0 /100 WBC 0-0 413) NEUTROPHILS RELATIVE PERCENT (BEAKER) (test code 57 % = 429) LYMPHOCYTES RELATIVE PERCENT (BEAKER) (test code 32 % = 430) MONOCYTES RELATIVE PERCENT (BEAKER) (test code = 8 % 431) EOSINOPHILS RELATIVE PERCENT (BEAKER) (test code 2 % = 432) BASOPHILS RELATIVE PERCENT (BEAKER) (test code = 0 % 437) NEUTROPHILS ABSOLUTE COUNT (BEAKER) (test code = 4.87 K/ L 1.56-6.13 670) LYMPHOCYTES ABSOLUTE COUNT (BEAKER) (test code = 2.73 K/ L 1.18-3.74 414) MONOCYTES ABSOLUTE COUNT (BEAKER) (test code = 0.70 K/ L 0 .24-0.36 415) EOSINOPHILS ABSOLUTE COUNT (BEAKER) (test code = 0.18 K/ L 0.04-0.36 416) BASOPHILS ABSOLUTE COUNT (BEAKER) (test code = 0.03 K/ L 0 .01-0.08 417) IMMATURE GRANULOCYTES-RELATIVE PERCENT (BEAKER) 0 % 0-1 (test code = 2801) WOUND CULTURE + GRAM [id number] 18:38:00 Test Item Value Reference Range Comments CULTURE (BEAKER) (test code = 1095) 1+ Skin batsheva GRAM STAIN RESULT (BEAKER) (test code = No WBCs 1123) GRAM STAIN RESULT (BEAKER) (test code = No organisms seen 23355) AFB CULTURE + [id number] 14:57:00 Test Item Value Reference Range Comments CULTURE (BEAKER) (test code = No acid-fast bacilli isolated 1095) in 42 days AFB SMEAR (BEAKER) (test code No acid fast bacilli seen = 994) SURGICALLY OBTAINED CULTURE + GRAM [id number] 10:13:00 Test Item Value Reference Range Comments CULTURE (BEAKER) (test code = No growth 1095) GRAM STAIN RESULT (BEAKER) (test <1+ White blood cells seen code = 1123) GRAM STAIN RESULT (BEAKER) (test No organisms seen code = 65300) MM, U/S, BREAST, UNILATERAL, [id number] 16:18:00Reason for Exam:->[id number] #[id number] - MM, U/S, BREAST, UNILATERAL, LEFTULTRASOUND OF LEFT BREAST: 12/08/2017No prior exams were available for comparison. Color flow and real-time ultrasound of the left breast wereperformed. Ultrasound [...] of malignancy. Macie Diop M.D. pth/:12/08/2017 16:18:20 Biodiesel Processing Technician: Phuong Pugh [employer] Faculty Member, [facility] Ultrasound BI-RADS: 2 Benign 82762 MM, DIGITAL MAMMO, DIAGNOSTIC, BILATERAL INCLUDING [id number] 16:16:00Reason for Exam:- >Encounter for screening mammogram for malugnant neoplasm of breastMRN#: [id number] - MM, DIGITAL MAMMO, DIAGNOSTIC, BILATERAL INCLUDING [...] is recommended. Macie Diop M.D. pth/:12/08/2017 16:16:27 Biodiesel Processing Technician: Ashely ANTHONY)(M), [facility] Mammogram BI-RADS: 2 Benign [id number] BLOOD [id number] 05:01:00 Test Item Value Reference Range Comments CULTURE (BEAKER) (test code = 1095) No growth in 5 days BLOOD [id number] 23:00:00 Test Item Value Reference Range Comments CULTURE (BEAKER) (test code = 1095) No growth in 5 days POCT-GLUCOSE [id number] 07:45:00 Test Item Value Reference Range Comments POC-GLUCOSE METER (BEAKER) 125 mg/dL 70-[address] [facility] [address] (test code = 1538) [place] [address] CALCIUM, [id number] 06:18:00 Test Item Value Reference Range Comments CALCIUM IONIZED (BEAKER) (test code = 698) 1.10 mmol/L 1.12- 1.27 PH, BLOOD (BEAKER) (test code = 1810) 7.36 [id number] 06:10:00 Test Item Value Reference Range Comments PHOSPHORUS (BEAKER) (test code = 604) 4.3 mg/dL 2.3-4.7 [id number] 06:10:00 Test Item Value Reference Range Comments MAGNESIUM (BEAKER) (test code = 627) 1.7 mg/dL 1.6-2.6 BASIC METABOLIC [id number] 06:10:00 Test Item Value Reference Range Comments SODIUM (BEAKER) (test 135 meq/L 136-145 code = 381) POTASSIUM (BEAKER) (test 3.9 meq/L 3.5-5.1 code = 379) CHLORIDE (BEAKER) (test 97 meq/L 98-107 code = 382) CO2 (BEAKER) (test code = 27 meq/L 22-29 355) BLOOD UREA NITROGEN 20 mg/dL 7-21 (BEAKER) (test code = 354) CREATININE (BEAKER) (test 0.84 mg/dL 0.57-1.25 code = 358) GLUCOSE RANDOM (BEAKER) 117 mg/dL 70-105 (test code = 652) CALCIUM (BEAKER) (test 8.7 mg/dL 8.4-10.2 code = 697) EGFR (BEAKER) (test code 68 mL/min/1.73 sq m EST IMATED GFR IS NOT = 1092) ACCURATE CREA TININE CLEARANCE IN PRE DICTING GLOMERULAR FILTR ATION RATE. ESTIMATED GFR IS NOT APPLICABLE F OR DIALYSIS PATIENT S. CBC W/PLT COUNT & AUTO [id number] 05:28:00 Test Item Value Reference Range Comments WHITE BLOOD CELL COUNT (BEAKER) (test code = 7.1 K/ L 3.5 -10.5 775) RED BLOOD CELL COUNT (BEAKER) (test code = 761) 3.75 M/ L 3.93-5.22 HEMOGLOBIN (BEAKER) (test code = 410) 11.6 GM/DL 11.2-15.7 HEMATOCRIT (BEAKER) (test code = 411) 37.0 % 34.1-44.9 MEAN CORPUSCULAR VOLUME (BEAKER) (test code = 98.7 fL 79 .4-94.8 753) MEAN CORPUSCULAR HEMOGLOBIN (BEAKER) (test code 30.9 pg 25.6-32.2 = 751) MEAN CORPUSCULAR HEMOGLOBIN CONC (BEAKER) (test 31.4 GM/DL 32.2-35.5 code = 752) RED CELL DISTRIBUTION WIDTH (BEAKER) (test code 14.5 % 11.7-14.4 = 412) PLATELET COUNT (BEAKER) (test code = 756) 256 K/CU MM 150-45 0 MEAN PLATELET VOLUME (BEAKER) (test code = 754) 9.2 fL 9.4-12.3 NUCLEATED RED BLOOD CELLS (BEAKER) (test code = 0 /100 WBC 0-0 413) NEUTROPHILS RELATIVE PERCENT (BEAKER) (test code 49 % = 429) LYMPHOCYTES RELATIVE PERCENT (BEAKER) (test code 39 % = 430) MONOCYTES RELATIVE PERCENT (BEAKER) (test code = 9 % 431) EOSINOPHILS RELATIVE PERCENT (BEAKER) (test code 2 % = 432) BASOPHILS RELATIVE PERCENT (BEAKER) (test code = 0 % 437) NEUTROPHILS ABSOLUTE COUNT (BEAKER) (test code = 3.46 K/ L 1.56-6.13 670) LYMPHOCYTES ABSOLUTE COUNT (BEAKER) (test code = 2.78 K/ L 1.18-3.74 414) MONOCYTES ABSOLUTE COUNT (BEAKER) (test code = 0.62 K/ L 0 .24-0.36 415) EOSINOPHILS ABSOLUTE COUNT (BEAKER) (test code = 0.14 K/ L 0.04-0.36 416) BASOPHILS ABSOLUTE COUNT (BEAKER) (test code = 0.03 K/ L 0 .01-0.08 417) IMMATURE GRANULOCYTES-RELATIVE PERCENT (BEAKER) 0 % 0-1 (test code = 2801) POCT-GLUCOSE [id number] 21:40:00 Test Item Value Reference Range Comments POC-GLUCOSE METER (BEAKER) 138 mg/dL 70-110 TESTE D AT [address] (test code = 1538) [place] [id number] POCT-GLUCOSE [id number] 18:56:00 Test Item Value Reference Range Comments POC-GLUCOSE METER (BEAKER) 98 mg/dL 70-110 TESTE D AT [address] (test code = 1538) [place] [id number] POCT-GLUCOSE [id number] 14:49:00 Test Item Value Reference Range Comments POC-GLUCOSE METER (BEAKER) 92 mg/dL 70-110 TESTE D AT [address] (test code = 1538) [place] [id number] VANCOMYCIN LEVEL, [id number] 11:12:00 Test Item Value Reference Range Comments VANCOMYCIN TROUGH (BEAKER) (test code = 522) 16.1 ug/mL 10. 0-20.0 POCT-GLUCOSE [id number] 09:35:00 Test Item Value Reference Range Comments POC-GLUCOSE METER (BEAKER) 123 mg/dL 70-110 TESTE D AT [address] (test code = 1538) [place] [id number] CBC W/PLT COUNT & AUTO [id number] 09:02:00 Test Item Value Reference Range Comments WHITE BLOOD CELL COUNT (BEAKER) (test code = 6.2 K/ L 3.5 -10.5 775) RED BLOOD CELL COUNT (BEAKER) (test code = 761) 3.72 M/ L 3.93-5.22 HEMOGLOBIN (BEAKER) (test code = 410) 11.5 GM/DL 11.2-15.7 HEMATOCRIT (BEAKER) (test code = 411) 36.5 % 34.1-44.9 MEAN CORPUSCULAR VOLUME (BEAKER) (test code = 98.1 fL 79 .4-94.8 753) MEAN CORPUSCULAR HEMOGLOBIN (BEAKER) (test code 30.9 pg 25.6-32.2 = 751) MEAN CORPUSCULAR HEMOGLOBIN CONC (BEAKER) (test 31.5 GM/DL 32.2-35.5 code = 752) RED CELL DISTRIBUTION WIDTH (BEAKER) (test code 14.4 % 11.7-14.4 = 412) PLATELET COUNT (BEAKER) (test code = 756) 268 K/CU MM 150-45 0 MEAN PLATELET VOLUME (BEAKER) (test code = 754) 9.1 fL 9.4-12.3 NUCLEATED RED BLOOD CELLS (BEAKER) (test code = 0 /100 WBC 0-0 413) NEUTROPHILS RELATIVE PERCENT (BEAKER) (test code 44 % = 429) LYMPHOCYTES RELATIVE PERCENT (BEAKER) (test code 44 % = 430) MONOCYTES RELATIVE PERCENT (BEAKER) (test code = 9 % 431) EOSINOPHILS RELATIVE PERCENT (BEAKER) (test code 2 % = 432) BASOPHILS RELATIVE PERCENT (BEAKER) (test code = 0 % 437) NEUTROPHILS ABSOLUTE COUNT (BEAKER) (test code = 2.70 K/ L 1.56-6.13 670) LYMPHOCYTES ABSOLUTE COUNT (BEAKER) (test code = 2.70 K/ L 1.18-3.74 414) MONOCYTES ABSOLUTE COUNT (BEAKER) (test code = 0.58 K/ L 0 .24-0.36 415) EOSINOPHILS ABSOLUTE COUNT (BEAKER) (test code = 0.15 K/ L 0.04-0.36 416) BASOPHILS ABSOLUTE COUNT (BEAKER) (test code = 0.02 K/ L 0 .01-0.08 417) IMMATURE GRANULOCYTES-RELATIVE PERCENT (BEAKER) 0 % 0-1 (test code = 2801) VITAMIN D, [id number] 07:00:00 Test Item Value Reference Range Comments VITAMIN D 25-OH (BEAKER) (test code = 2764) 22.5 ng/mL 6.6- 49.9 Effective 07/27/2017: Reference Range ChangeNew: 6.6-49.9 ng/mL Previous: 13.0-47.8 ng/mLRecommended Vitamin D Target Range: 30.0-40.0 ng/mLPHOSPHORUS 2017-12-02 06:39:00 Test Item Value Reference Range Comments PHOSPHORUS (BEAKER) (test code = 604) 4.6 mg/dL 2.3-4.7 [id number] 06:39:00 Test Item Value Reference Range Comments MAGNESIUM (BEAKER) (test code = 627) 1.7 mg/dL 1.6-2.6 BASIC METABOLIC [id number] 06:39:00 Test Item Value Reference Range Comments SODIUM (BEAKER) (test 139 meq/L 136-145 code = 381) POTASSIUM (BEAKER) (test 4.2 meq/L 3.5-5.1 code = 379) CHLORIDE (BEAKER) (test 102 meq/L 98-107 code = 382) CO2 (BEAKER) (test code = 26 meq/L 22-29 355) BLOOD UREA NITROGEN 16 mg/dL 7-21 (BEAKER) (test code = 354) CREATININE (BEAKER) (test 0.75 mg/dL 0.57-1.25 code = 358) GLUCOSE RANDOM (BEAKER) 106 mg/dL 70-105 (test code = 652) CALCIUM (BEAKER) (test 9.3 mg/dL 8.4-10.2 code = 697) EGFR (BEAKER) (test code 78 mL/min/1.73 sq m EST IMATED GFR IS NOT = 1092) ACCURATE CREA TININE CLEARANCE IN PRE DICTING GLOMERULAR FILTR ATION RATE. ESTIMATED GFR IS NOT APPLICABLE F OR DIALYSIS PATIENT S. CALCIUM, [id number] 06:30:00 Test Item Value Reference Range Comments CALCIUM IONIZED (BEAKER) (test code = 698) 0.87 mmol/L 1.12- 1.27 PH, BLOOD (BEAKER) (test code = 1810) 7.37 POCT-GLUCOSE [id number] 20:32:00 Test Item Value Reference Range Comments POC-GLUCOSE METER (BEAKER) 173 mg/dL 70-[address] [facility] [address] (test code = 1538) [facility] 77 030 POCT-GLUCOSE [id number] 18:41:00 Test Item Value Reference Range Comments POC-GLUCOSE METER (BEAKER) 121 mg/dL 70-[address] [facility] [address] [place] [address] (test code = 1538) [place] [address]30 HEMOGLOBIN [id number] 14:36:00 Test Item Value Reference Range Comments HEMOGLOBIN A1C (BEAKER) (test code = 368) 6.6 % 4.3-6. 1 POCT-GLUCOSE [id number] 12:36:00 Test Item Value Reference Range Comments POC-GLUCOSE METER (BEAKER) 139 mg/dL 70-110 TESTE D AT [address] (test code = 1538) [place] [address]30 POCT-GLUCOSE [id number] 08:34:00 Test Item Value Reference Range Comments POC-GLUCOSE METER (BEAKER) 125 mg/dL 70-110 TESTE D AT [address] (test code = 1538) [place] [address]30 CBC W/PLT COUNT & AUTO [id number] 07:16:00 Test Item Value Reference Range Comments WHITE BLOOD CELL COUNT (BEAKER) (test code = 7.6 K/ L 3.5 -10.5 775) RED BLOOD CELL COUNT (BEAKER) (test code = 761) 3.58 M/ L 3.93-5.22 HEMOGLOBIN (BEAKER) (test code = 410) 11.2 GM/DL 11.2-15.7 HEMATOCRIT (BEAKER) (test code = 411) 35.6 % 34.1-44.9 MEAN CORPUSCULAR VOLUME (BEAKER) (test code = 99.4 fL 79 .4-94.8 753) MEAN CORPUSCULAR HEMOGLOBIN (BEAKER) (test code 31.3 pg 25.6-32.2 = 751) MEAN CORPUSCULAR HEMOGLOBIN CONC (BEAKER) (test 31.5 GM/DL 32.2-35.5 code = 752) RED CELL DISTRIBUTION WIDTH (BEAKER) (test code 14.5 % 11.7-14.4 = 412) PLATELET COUNT (BEAKER) (test code = 756) 274 K/CU MM 150-45 0 MEAN PLATELET VOLUME (BEAKER) (test code = 754) 9.1 fL 9.4-12.3 NUCLEATED RED BLOOD CELLS (BEAKER) (test code = 0 /100 WBC 0-0 413) NEUTROPHILS RELATIVE PERCENT (BEAKER) (test code 44 % = 429) LYMPHOCYTES RELATIVE PERCENT (BEAKER) (test code 43 % = 430) MONOCYTES RELATIVE PERCENT (BEAKER) (test code = 10 % 431) EOSINOPHILS RELATIVE PERCENT (BEAKER) (test code 2 % = 432) BASOPHILS RELATIVE PERCENT (BEAKER) (test code = 0 % 437) NEUTROPHILS ABSOLUTE COUNT (BEAKER) (test code = 3.29 K/ L 1.56-6.13 670) LYMPHOCYTES ABSOLUTE COUNT (BEAKER) (test code = 3.26 K/ L 1.18-3.74 414) MONOCYTES ABSOLUTE COUNT (BEAKER) (test code = 0.75 K/ L 0 .24-0.36 415) EOSINOPHILS ABSOLUTE COUNT (BEAKER) (test code = 0.18 K/ L 0.04-0.36 416) BASOPHILS ABSOLUTE COUNT (BEAKER) (test code = 0.03 K/ L 0 .01-0.08 417) IMMATURE GRANULOCYTES-RELATIVE PERCENT (BEAKER) 1 % 0-1 (test code = 2801) (MANUAL DIFFERENTIAL)2017-12-01 07:16:00 Test Item Value Reference Range Comments TOTAL COUNTED (BEAKER) (test code = 1351) TSH/FREE T4 IF [id number] 06:48:00 Test Item Value Reference Range Comments THYROID STIMULATING HORMONE (BEAKER) (test code 4.13 uIU/mL 0.35-4.94 = 772) [id number] 06:25:00 Test Item Value Reference Range Comments PHOSPHORUS (BEAKER) (test code = 604) 3.9 mg/dL 2.3-4.7 [id number] 06:25:00 Test Item Value Reference Range Comments MAGNESIUM (BEAKER) (test code = 627) 1.8 mg/dL 1.6-2.6 BASIC METABOLIC [id number] 06:25:00 Test Item Value Reference Range Comments SODIUM (BEAKER) (test 138 meq/L 136-145 code = 381) POTASSIUM (BEAKER) (test 4.0 meq/L 3.5-5.1 code = 379) CHLORIDE (BEAKER) (test 102 meq/L 98-107 code = 382) CO2 (BEAKER) (test code = 25 meq/L 22-29 355) BLOOD UREA NITROGEN 15 mg/dL 7-21 (BEAKER) (test code = 354) CREATININE (BEAKER) (test 0.82 mg/dL 0.57-1.25 code = 358) GLUCOSE RANDOM (BEAKER) 100 mg/dL 70-105 (test code = 652) CALCIUM (BEAKER) (test 9.0 mg/dL 8.4-10.2 code = 697) EGFR (BEAKER) (test code 70 mL/min/1.73 sq m EST IMATED GFR IS NOT = 1092) ACCURATE CREA TININE CLEARANCE IN PRE DICTING GLOMERULAR FILTR ATION RATE. ESTIMATED GFR IS NOT APPLICABLE F OR DIALYSIS PATIENT S. LIPID [id number] 06:25:00 Test Item Value Reference Range Comments TRIGLYCERIDES (BEAKER) (test code = 540) 357 mg/dL CHOLESTEROL (BEAKER) (test code = 631) 161 mg/dL HDL CHOLESTEROL (BEAKER) (test code = 976) 44 mg/dL LDL CHOLESTEROL CALCULATED (BEAKER) (test code = 46 mg/dL 633) Triglyceride Reference Range: Low Risk <150 Borderline 150-199 High Risk 200-499 Very High Risk >=500Cholesterol Reference Range: Low Risk <200 Borderline 200-239 High Risk >240HDL Cholesterol Reference Range: Low Risk >=60 High Risk <40LDL Cholesterol Reference Range: Optimal <100 Near Optimal 100-129 Borderline 130-159 High 160-189 Very High >=190CALCIUM, [id number] 06:02:00 Test Item Value Reference Range Comments CALCIUM IONIZED (BEAKER) (test code = 698) 0.84 mmol/L 1.12- 1.27 PH, BLOOD (BEAKER) (test code = 1810) 7.40 POCT-GLUCOSE [id number] 23:04:00 Test Item Value Reference Range Comments POC-GLUCOSE METER (BEAKER) 92 mg/dL 70-[address] [facility] [address] [facility] (test code = 1538) [facility] [address] BASIC METABOLIC [id number] 16:03:00 Test Item Value Reference Range Comments SODIUM (BEAKER) (test 137 meq/L 136-145 code = 381) POTASSIUM (BEAKER) (test 4.1 meq/L 3.5-5.1 code = 379) CHLORIDE (BEAKER) (test 104 meq/L 98-107 code = 382) CO2 (BEAKER) (test code = 21 meq/L 22-29 355) BLOOD UREA NITROGEN 14 mg/dL 7-21 (BEAKER) (test code = 354) CREATININE (BEAKER) (test 0.85 mg/dL 0.57-1.25 code = 358) GLUCOSE RANDOM (BEAKER) 103 mg/dL 70-105 (test code = 652) CALCIUM (BEAKER) (test 9.0 mg/dL 8.4-10.2 code = 697) EGFR (BEAKER) (test code 68 mL/min/1.73 sq m EST IMATED GFR IS NOT = 1092) ACCURATE CREA TININE CLEARANCE IN PRE DICTING GLOMERULAR FILTR ATION RATE. ESTIMATED GFR IS NOT APPLICABLE F OR DIALYSIS PATIENT S. CBC W/PLT COUNT & AUTO [id number] 15:58:00 Test Item Value Reference Range Comments WHITE BLOOD CELL COUNT (BEAKER) (test code = 7.2 K/ L 3.5 -10.5 775) RED BLOOD CELL COUNT (BEAKER) (test code = 761) 3.79 M/ L 3.93-5.22 HEMOGLOBIN (BEAKER) (test code = 410) 12.0 GM/DL 11.2-15.7 HEMATOCRIT (BEAKER) (test code = 411) 37.8 % 34.1-44.9 MEAN CORPUSCULAR VOLUME (BEAKER) (test code = 99.7 fL 79 .4-94.8 753) MEAN CORPUSCULAR HEMOGLOBIN (BEAKER) (test code 31.7 pg 25.6-32.2 = 751) MEAN CORPUSCULAR HEMOGLOBIN CONC (BEAKER) (test 31.7 GM/DL 32.2-35.5 code = 752) RED CELL DISTRIBUTION WIDTH (BEAKER) (test code 14.5 % 11.7-14.4 = 412) PLATELET COUNT (BEAKER) (test code = 756) 296 K/CU MM 150-45 0 MEAN PLATELET VOLUME (BEAKER) (test code = 754) 9.0 fL 9.4-12.3 NUCLEATED RED BLOOD CELLS (BEAKER) (test code = 0 /100 WBC 0-0 413) NEUTROPHILS RELATIVE PERCENT (BEAKER) (test code 47 % = 429) LYMPHOCYTES RELATIVE PERCENT (BEAKER) (test code 42 % = 430) MONOCYTES RELATIVE PERCENT (BEAKER) (test code = 8 % 431) EOSINOPHILS RELATIVE PERCENT (BEAKER) (test code 2 % = 432) BASOPHILS RELATIVE PERCENT (BEAKER) (test code = 0 % 437) NEUTROPHILS ABSOLUTE COUNT (BEAKER) (test code = 3.41 K/ L 1.56-6.13 670) LYMPHOCYTES ABSOLUTE COUNT (BEAKER) (test code = 3.01 K/ L 1.18-3.74 414) MONOCYTES ABSOLUTE COUNT (BEAKER) (test code = 0.58 K/ L 0 .24-0.36 415) EOSINOPHILS ABSOLUTE COUNT (BEAKER) (test code = 0.17 K/ L 0.04-0.36 416) BASOPHILS ABSOLUTE COUNT (BEAKER) (test code = 0.03 K/ L 0 .01-0.08 417) IMMATURE GRANULOCYTES-RELATIVE PERCENT (BEAKER) 0 % 0-1 (test code = 2801) RAD, CHEST, 2 [id number] 15:19:00Reason for exam:->cpShould this be performed at the bedside?->NoFINAL REPORT Chest two views compared to November 14, 2017 Discussion: Lungs clear. Heart size normal. No effusion or pneumothorax. There are right shoulder degenerative changes. W idened left AC joint may reflect previous surgery or trauma. Signed: Eryn Lakeort Verified Date/Time: 11/30/2017 15:19:59 Reading Location: [address] Consult Reading Room SINUS CULTURE + GRAM [id number] 08:42:00 Test Item Value Reference Range Comments CULTURE (BEAKER) (test code = 1095) Clindamycin (test code = 10) Erythromycin (test code = 4) Linezolid (test code = 40) Nitrofurantoin (test code = 23) Oxacillin (test code = 14) Rifampin (test code = 43) Tetracycline (test code = 2) Trimethoprim + Sulfamethoxazole (test code = 47) Vancomycin (test code = 13) CULTURE (BEAKER) (test code 1+ M ethicillin resistant = 1095) Staphylococcus a ureus GRAM STAIN RESULT (BEAKER) <1+ WBCs (test code = 1123) GRAM STAIN RESULT (BEAKER) No organisms seen (test code = 269971) No Normal respiratory batsheva presentHEPATIC FUNCTION [id number] 14:45:00 Test Item Value Reference Range Comments TOTAL PROTEIN (BEAKER) (test code = 770) 7.1 gm/dL 6.0-8.3 ALBUMIN (BEAKER) (test code = 1145) 3.7 g/dL 3.5-5.0 BILIRUBIN TOTAL (BEAKER) (test code = 377) 0.3 mg/dL 0.2-1 .2 BILIRUBIN DIRECT (BEAKER) (test code = 706) 0.1 mg/dL 0.1- 0.5 ALKALINE PHOSPHATASE (BEAKER) (test code = 346) 109 U/L 40-150 AST (SGOT) (BEAKER) (test code = 353) 18 U/L 5-34 ALT (SGPT) (BEAKER) (test code = 347) 9 U/L 6-55 BASIC METABOLIC [id number] 14:45:00 Test Item Value Reference Range Comments SODIUM (BEAKER) (test 137 meq/L 136-145 code = 381) POTASSIUM (BEAKER) (test 3.8 meq/L 3.5-5.1 code = 379) CHLORIDE (BEAKER) (test 101 meq/L 98-107 code = 382) CO2 (BEAKER) (test code = 25 meq/L 22-29 355) BLOOD UREA NITROGEN 16 mg/dL 7-21 (BEAKER) (test code = 354) CREATININE (BEAKER) (test 0.73 mg/dL 0.57-1.25 code = 358) GLUCOSE RANDOM (BEAKER) 89 mg/dL 70-105 (test code = 652) CALCIUM (BEAKER) (test 8.7 mg/dL 8.4-10.2 code = 697) EGFR (BEAKER) (test code 81 mL/min/1.73 sq m EST IMATED GFR IS NOT = 1092) ACCURATE CREA TININE CLEARANCE IN PRE DICTING GLOMERULAR FILTR ATION RATE. ESTIMATED GFR IS NOT APPLICABLE F OR DIALYSIS PATIENT S. CBC W/PLT COUNT & AUTO [id number] 14:12:00 Test Item Value Reference Range Comments WHITE BLOOD CELL COUNT (BEAKER) (test code = 7.8 K/ L 3.5 -10.5 775) RED BLOOD CELL COUNT (BEAKER) (test code = 761) 3.73 M/ L 3.93-5.22 HEMOGLOBIN (BEAKER) (test code = 410) 11.7 GM/DL 11.2-15.7 HEMATOCRIT (BEAKER) (test code = 411) 36.4 % 34.1-44.9 MEAN CORPUSCULAR VOLUME (BEAKER) (test code = 97.6 fL 79 .4-94.8 753) MEAN CORPUSCULAR HEMOGLOBIN (BEAKER) (test code 31.4 pg 25.6-32.2 = 751) MEAN CORPUSCULAR HEMOGLOBIN CONC (BEAKER) (test 32.1 GM/DL 32.2-35.5 code = 752) RED CELL DISTRIBUTION WIDTH (BEAKER) (test code 14.3 % 11.7-14.4 = 412) PLATELET COUNT (BEAKER) (test code = 756) 291 K/CU MM 150-45 0 MEAN PLATELET VOLUME (BEAKER) (test code = 754) 9.3 fL 9.4-12.3 NUCLEATED RED BLOOD CELLS (BEAKER) (test code = 0 /100 WBC 0-0 413) NEUTROPHILS RELATIVE PERCENT (BEAKER) (test code 48 % = 429) LYMPHOCYTES RELATIVE PERCENT (BEAKER) (test code 40 % = 430) MONOCYTES RELATIVE PERCENT (BEAKER) (test code = 8 % 431) EOSINOPHILS RELATIVE PERCENT (BEAKER) (test code 3 % = 432) BASOPHILS RELATIVE PERCENT (BEAKER) (test code = 0 % 437) NEUTROPHILS ABSOLUTE COUNT (BEAKER) (test code = 3.72 K/ L 1.56-6.13 670) LYMPHOCYTES ABSOLUTE COUNT (BEAKER) (test code = 3.13 K/ L 1.18-3.74 414) MONOCYTES ABSOLUTE COUNT (BEAKER) (test code = 0.64 K/ L 0 .24-0.36 415) EOSINOPHILS ABSOLUTE COUNT (BEAKER) (test code = 0.20 K/ L 0.04-0.36 416) BASOPHILS ABSOLUTE COUNT (BEAKER) (test code = 0.03 K/ L 0 .01-0.08 417) IMMATURE GRANULOCYTES-RELATIVE PERCENT (BEAKER) 0 % 0-1 (test code = 2801) RAD, CHEST, 2 [id number] 13:06:00Reason for Exam:->[id number] REPORT HISTORY : R05. Comparison: None Comment: [...] MDReport Verified Date/Time: 11/14/2017 13:06:08 Reading Location: [address] Radiology Reading Room CT ABDOMEN AND PELVIS W/WOCLINICAL INDICATION: R50.9 Fever, unspecifiedMODALITY: Dogster Supria [address] (Iterative dose reduction technique is used).TECHNIQUE: Helical imaging of the abdomen and pelvis is performed. Oral contrast is administered. 85 mls optiray are administered IV. Imaging performed prior to and after administration of contrast.Computed Tomography Dose Index: 86.4 mGy. IMPRESSION:1. No acute abnormality.2. Hepatomegaly with diffuse fatty infiltration.3. Gastric bypass postoperative changes with small hiatal hernia.4. Cholecystectomy.5. Hysterectomy.FINDINGS:COMPARISON: NoneThe liver is mildly enlarged and demonstrates [...] or inguinal lymphadenopathy is evident.PQRS 436: [id number] (For official use only.)
--- OUTSIDE RECORDS SUMMARY | 2020-01-30 05:46 | XMS REPORT ---
:1955 Author Organization e[employer] Care Team Providers Name Role Phone Deepthi Mcleod Provider Role Unavailable Allergies No Known Allergies Problems Problem Type Condition Code Onset Dates Condition Statu s Problem Sinusitis - Chronic J32.8 Active Problem Cellulitis of face L03.211 Active Problem Allergic rhinitis due to pollen J30.1 Active Problem Arthralgia of bilateral M26.623 Acti ve temporomandibular joint Problem Nasal congestion R09.81 Active Problem Hearing loss - Sensorineural H90.3 Active Bilateral Problem Sinusitis - Chronic J32.8 Active Problem Wheezing R06.2 Active Problem Nasal airway obstruction J34.89 Act myah Problem Obstructive sleep apnea G47.33 Acti ve Problem Cough R05 Active Medications Medication Code System Code Instructions Start Date End Date Status Dosage Bactrim [facility] [id number] 400-80 MG Orally Nov 15, Nov 29, Active 1 t ablet Once a day 2017 2017 Results No Known Results Summary Purpose eClinicalWorks Submission
[2020-01-30] MEDS ORDERED: DIAZEPAM 10 MG/2 ML INJ SYRINGE ONE ×2 (06:25→08:08)
[2020-01-30] MEDS ORDERED: ONDANSETRON 4 MG/2 ML VIAL ONE ×2 (06:25→09:36)
[2020-01-30 06:39] LABS: Absolute Lymphocytes (CBC) 2.5 K/uL (0.7-4.9); Basophils % 0.8 % (0-1.3); Hematocrit 41.8 % (36.0-45.0); Lymphocytes % 32.5 % (15.3-44.8); MPV 8.2 fL (7.6-11.3); RBC Red Blood Cell Count 4.44 M/uL (3.86-4.86)
[2020-01-30 06:40] LABS: Protime INR 0.92
--- NOTE | 2020-01-30 07:17 | RAD REPORT ---
EXAM DESCRIPTION: CT - Head Brain Wo Cont - 01/30/2020 6:49 am CLINICAL HISTORY: DIZZINESS COMPARISON: Head Brain Wo Cont dated 03/29/2019 TECHNIQUE: Axial 5 mm thick images of the head were obtained without IV contrast. All CT scans are performed using dose optimization technique as appropriate and may include automated exposure control or mA/KV adjustment according to patient size. FINDINGS: No intracranial hemorrhage, mass, edema or shift of mid-line structures. No acute cortical based infarction identified. No cortical edema or sulcal effacement. No abnormal extra-axial fluid c ollections. Ventricles are normal. Atrophy changes are mild. No significant chronic ischemic change e vident. Mastoid air cells and visualized portions of the paranasal sinuses are clear. No acute bony findings. Patient has normal variant hyperostosis frontalis interna. IMPRESSION: Negative noncontrast CT head study for acute finding. Patient has mild atrophy and no significant degree of chronic ischemic change evident. No significant change from March 2019.
[2020-01-30 07:18] LABS: ALT/SGPT 11 U/L (12-78); AST/SGOT 21 U/L (15-37); Albumin 3.4 g/dL (3.4-5.0); Alkaline Phosphatase 125 U/L (45-117); BUN Blood Urea Nitrogen 19 mg/dL (7-18); Bicarbonate 24 mmol/L (21-32); Bilirubin Direct 0.1 mg/dL (0-0.2); Bilirubin Total 0.4 mg/dL (0.2-1.0); Glucose Level 160 mg/dL (74-106); Lipase 75 U/L (73-393); Magnesium 2.3 mg/dL (1.8-2.4); NT PRO-BNP 284 pg/mL (<125); Potassium 3.9 mmol/L (3.5-5.1); Protein, Total 7.9 g/dL (6.4-8.2); Sodium Level 140 mmol/L (136-145); Troponin (Emerg Dept Use Only) < 0.02 ng/mL (0.0-0.045)
--- NOTE | 2020-01-30 07:23 | RAD REPORT ---
EXAM DESCRIPTION: RAD - Chest Single View - 01/30/2020 6:26 am CLINICAL HISTORY: weakness, dizziness, shortness of breath COMPARISON: Two view chest September 2018, portable chest February 2018 TECHNIQUE: AP portable chest image was obtained 01/30/2020 6:26 am . FINDINGS: No peripheral mass or consolidations seen. Mild cardiomegaly is present. Heart size is exa ggerated by body habitus and portable technique. Central vasculature and lung markings are increased compared to prior imaging. Trachea is midline. No measurable pleural effusion and no pneumothorax. No acute bony abnormality seen. No acute aortic findings suspected. IMPRESSION: Heart, vasculature and lung markings are all prominent compared to prior imaging. Findings suggest mild failure or volume overload. Correlation is needed with clinical findings.
[2020-01-30] MEDS ORDERED: MECLIZINE HCL 12.5 MG TAB ONE (07:29)
--- NOTE | 2020-01-30 07:59 | RAD REPORT ---
EXAM DESCRIPTION: CT - Head angio - 01/30/2020 7:46 am CLINICAL HISTORY: DIZZINESS TECHNIQUE: During dynamic enhancement using nonionic IV contrast, axial 1 millimeter thick images of the head were obtained. Sagittal and axial reconstruction images were generated using MIP technique and reviewed. All CT scans are performed using dose optimization technique as appropriate and may include automated exposure control or mA/KV adjustment according to patient size. FINDINGS: No aneurysm or vascular malformation identified. Major venous sinuses are patent. No stenosis, named branch occlusion, vasculitis or other significant vascular finding identifiable. B ilateral internal carotid artery calcifications are present without luminal narrowing. IMPRESSION: Negative CT angio head examination for acute or significant finding.
--- NOTE | 2020-01-30 08:01 | RAD REPORT ---
EXAM DESCRIPTION: CT - Neck Angio - 01/30/2020 7:49 am CLINICAL HISTORY: dizziness TECHNIQUE: During dynamic enhancement using nonionic IV contrast, axial 2 mm thick images of the nec k were obtained. Sagittal and axial reconstruction images were generated using MIP technique and revi ewed. All CT scans are performed using dose optimization technique as appropriate and may include automated exposure control or mA/KV adjustment according to patient size. COMPARISON: CT head same date, CT angio head same date FINDINGS: No aneurysm or vascular malformation identified. No carotid or vertebral dissection. Aortic arch is bovine configuration. No stenosis at the great vessel origins. Vertebral artery origin s also appear normal though there is some artifact present limiting detail. Likelihood of a significa nt vertebral artery origin finding is very low. Minimal atherosclerotic calcifications are present in the carotid vasculature. No stenosis, vasculitis or other significant carotid artery finding. No foc al abnormality of either vertebral artery. Basilar artery is normal. IMPRESSION: Negative CT angio neck examination for acute or significant finding.
[2020-01-30] MEDS ORDERED: SCOPOLAMINE HYDROBROMIDE PATCH TD ONE (09:00)
--- NOTE | 2020-01-30 10:10 | ER ---
Nurse's Notes [facility] Name: Lara Liu Age: 64 yrs Sex: Female : 1955 Arrival Date: 01/30/2020 Time: 05:43 Bed 5 Private MD: Diagnosis: Vertigo Presentation: 01/29 05:46 Chief complaint: EMS states: they were toned out for report of pt with dizziness, bb incontinence, sweating. Coronavirus screen: Proceed with normal triage. Ebola Screen: No symptoms or risks identified at this time. Initial Sepsis Screen: Does the patient meet any 2 criteria? No. Patient's initial sepsis screen is negative. Does the patient have a suspected source of infection? No. Patient's initial sepsis screen is negative. Risk Assessment: Do you want to hurt yourself or someone else? Patient reports no desire to harm self or others. Onset of symptoms was January 30, 2020. 05:46 Method Of Arrival: EMS: [facility] bb 05:46 Acuity: CRIS 2 bb Historical: - Allergies: 05:49 No Known Allergies; bb - PMHx: 05:49 CHF; Diabetes - NIDDM; Hyperlipidemia; Hypertension; Hypothyroidism; Sleep Apnea; bb - Immunization history:: Adult Immunizations up to date. - Social history:: Smoking status: Patient denies any tobacco usage or history of. Patient/guardian denies using alcohol, street drugs. Screenin:01 Abuse screen: Denies threats or abuse. Nutritional screening: No deficits noted. ea Tuberculosis screening: No symptoms or risk factors identified. Fall Risk None identified. Assessment: 06:03 General: Appears in no apparent distress. Behavior is cooperative. Pain: Denies pain. ea Neuro: Level of Consciousness is awake, alert, obeys commands, Oriented to person, place, time, situation, Reports dizziness, since 2 hours ago. Respiratory: Airway is patent Respiratory effort is even, unlabored, Respiratory pattern is regular, symmetrical. Derm: Skin is pink, warm \T\ dry. Musculoskeletal: Circulation, motion, and sensation intact. 07:20 Reassessment: Patient appears in no apparent distress at this time. Patient and/or em family updated on plan of care and expected duration. Pain level reassessed. Patient is alert, oriented x 3, equal unlabored respirations, skin warm/dry/pink. Patient states symptoms have not improved. 08:00 Reassessment: Patient appears in no apparent distress at this time. reports dizziness em has not improved, provider notified, received new orders. 09:20 Reassessment: Patient appears in no apparent distress at this time. assisted pt onto em bedpan. 10:20 Reassessment: called Taya at [phone], left message. em 10:22 Reassessment: pending for family member to come black pickler pt. em 11:14 Reassessment: Patient appears in no apparent distress at this time. Patient and/or em family updated on plan of care and expected duration. Pain level reassessed. Patient is alert, oriented x 3, equal unlabored respirations, skin warm/dry/pink. Patient states feeling better. Patient states symptoms have improved. Vital Signs: 05:46 Weight 117.93 kg (R); Height 5 ft. 4 in. (162.56 cm) (R); Pain 0/10; bb 06:01 BP 154 / 58; Pulse 57; Resp 18; Temp 97.2(TE); Pulse Ox 95% on R/A; ea 07:30 BP 126 / 72; Pulse 49; Resp 18; Pulse Ox 99% ; sv 08:49 BP 141 / 62; Pulse 53; Resp 18; Pulse Ox 96% on R/A; em 09:30 BP 132 / 67; Pulse 54; Resp 18; Pulse Ox 100% ; sv 05:46 Body Mass Index 44.63 (117.93 kg, 162.56 cm) bb ED Course: 05:43 Patient arrived in ED. ds1 05:48 Triage completed. bb 05:49 Arm band placed on Patient placed in an exam room, on a stretcher, on pulse oximetry. bb 05:52 Mikie Flowers, RN is Primary Nurse. rr5 06:01 Patient has correct armband on for positive identification. Bed in low position. Call ea light in reach. Side rails up X2. 06:08 Beau Guzmán PA is PHCP. jmm 06:08 Alfredo James MD is Attending Physician. jmm 06:20 Inserted saline lock: 20 gauge in right forearm, using aseptic technique. Blood ds4 collected. 06:27 XRAY Chest (1 view) In Process Unspecified. EDMS 06:49 CT Head Brain wo Cont In Process Unspecified. EDMS 06:56 Lipase Sent. ds4 06:57 Basic Metabolic Panel Sent. ds4 06:57 Basic Metabolic Panel Sent. ds4 06:57 NT PRO-BNP Sent. ds4 06:57 LFT's Sent. ds4 06:57 Magnesium Sent. ds4 06:57 Troponin (emerg Dept Use Only) Sent. ds4 07:47 CT Head Angio In Process Unspecified. EDMS 07:47 CT Neck Angio In Process Unspecified. EDMS 11:13 No provider procedures requiring assistance completed. IV discontinued, intact, em bleeding controlled, No redness/swelling at site. Pressure dressing applied. Administered Medications: 06:28 Drug: Zofran (Ondansetron) 4 mg Route: IVP; Site: right antecubital; ea 07:30 Follow up: Response: No adverse reaction em 06:29 Drug: Valium 2 mg Route: IVP; Site: right antecubital; ea 07:31 Follow up: Response: No adverse reaction; No change in condition em 07:30 Drug: Meclizine 25 mg Route: PO; em 08:06 Follow up: Response: No adverse reaction; No change in condition em 08:10 Drug: Valium 2 mg Route: IVP; Site: right forearm; em 08:45 Follow up: Response: No adverse reaction; No change in condition em 09:11 Drug: Scopolamine 1 application {Note: applied behind right ear.} Route: Transdermal; em Site: affected area; 10:17 Follow up: Response: No adverse reaction em 09:31 Drug: Zofran (Ondansetron) 4 mg Route: IVP; Site: right forearm; em 10:17 Follow up: Response: No adverse reaction; Marked relief of symptoms; Nausea is decreasedem 10:17 Drug: Tylenol 650 mg Route: PO; em 11:14 Follow up: Response: No adverse reaction; Marked relief of symptoms; Pain is decreased em Outcome: 10:09 Discharge ordered by . jose 11:13 Discharged to home via wheelchair, with family. em 11:13 Condition: good 11:13 Discharge instructions given to patient, family, Instructed on discharge instructions, follow up and referral plans. medication usage, Demonstrated understanding of instructions, follow-up care, medications, Prescriptions given X 2. 11:33 Patient left the ED. em Signatures: Dispatcher [employer] Emily Kline RN RN Beau Arroyo PA PA jmm Munoz, Edgar, RN RN Shari Garcia ds1 Cecelia Dyer RN RN Eric Dent ds4 Cyndee Singleton RN RN Mikie Victoria RN RN rr5 Corrections: (The following items were deleted from the chart) 06:57 06:25 Inserted saline lock: 20 gauge in right forearm, using aseptic technique. Blood ds4 collected. ds4
--- NOTE | 2020-01-30 10:10 | EDPHYS ---
Physician Documentation [facility] Name: Lara Liu Age: 64 yrs Sex: Female : 1955 Arrival Date: 01/30/2020 Time: 05:43 Bed 5 Private MD: ED Physician Alfredo James HPI: 01/29 06:14 This 64 yrs old Female presents to ER via EMS with complaints of Dizziness. jmm 06:14 The patient presents with dizziness, sense of spinning. Onset: The symptoms/episode jmm began/occurred acutely. Modifying factors: The symptoms are alleviated by closing eyes. Associated signs and symptoms: Pertinent positives: vomiting. This is a 64 year old female with a history of CHF, HLP, HTN, hypothyroidism that present to the ED with complaints of acute onset dizziness which the patient states occurred at work. Symptoms began upon standing and described as the room spinning. Patient denies previous episode in the past. Denies abdominal pain. Unable to open eyes due to dizziness. . Historical: - Allergies: 05:49 No Known Allergies; bb - PMHx: 05:49 CHF; Diabetes - NIDDM; Hyperlipidemia; Hypertension; Hypothyroidism; Sleep Apnea; bb - Immunization history:: Adult Immunizations up to date. - Social history:: Smoking status: Patient denies any tobacco usage or history of. Patient/guardian denies using alcohol, street drugs. ROS: 06:14 Constitutional: Negative for fever, chills, and weight loss, Cardiovascular: Negative jmm for chest pain, palpitations, and edema, Respiratory: Negative for shortness of breath, cough, wheezing, and pleuritic chest pain. 06:14 Abdomen/GI: Positive for vomiting, diarrhea. 06:14 Neuro: Positive for dizziness. 06:14 All other systems are negative. Exam: 06:14 Head/Face: atraumatic. jmm 06:14 Eyes: EOMI, no conjunctival erythema appreciated ENT: Moist Mucus Membranes Neck: Trachea midline, Supple Chest/axilla: Normal chest wall appearance and motion. Cardiovascular: Regular rate and rhythm. No edema appreciated Respiratory: Normal respirations, no respiratory distress appreciated Abdomen/GI: Non distended, soft Back: Normal ROM Skin: General appearance color normal MS/ Extremity: Moves all extremities, no obvious deformities appreciated, no edema noted to the lower extremities 06:14 Constitutional: The patient appears alert, awake, anxious. 06:14 Eyes: 06:14 Neuro: Orientation: is normal, Mentation: is normal, Memory: is normal. 06:14 Psych: Behavior/mood is anxious. Vital Signs: 05:46 Weight 117.93 kg (R); Height 5 ft. 4 in. (162.56 cm) (R); Pain 0/10; bb 06:01 BP 154 / 58; Pulse 57; Resp 18; Temp 97.2(TE); Pulse Ox 95% on R/A; ea 07:30 BP 126 / 72; Pulse 49; Resp 18; Pulse Ox 99% ; sv 08:49 BP 141 / 62; Pulse 53; Resp 18; Pulse Ox 96% on R/A; em 09:30 BP 132 / 67; Pulse 54; Resp 18; Pulse Ox 100% ; sv 05:46 Body Mass Index 44.63 (117.93 kg, 162.56 cm) bb MDM: 06:12 Patient medically screened. [facility] 10:07 Data reviewed: vital signs, nurses notes. Counseling: I had a detailed discussion with jose the patient and/or guardian regarding: the historical points, exam findings, and any diagnostic results supporting the discharge/admit diagnosis, lab results, the need for outpatient follow up, to return to the emergency department if symptoms worsen or persist or if there are any questions or concerns that arise at home. ED course: Symptoms have mildly decreased. patient states having ongoing sinus issues which she has seen an ENT for. CT and CTA negative for an acute process. Most likely peripheral. Patient is otherwise given strict return precautions. Patient understood and agrees with the plan of care. . 01/29 06:08 Order name: Basic Metabolic Panel [facility] 01/29 06:08 Order name: CBC with Diff; Complete Time: 07:00 [facility] 01/29 06:08 Order name: LFT's; Complete Time: 07:20 [facility] 01/29 06:08 Order name: Magnesium; Complete Time: 07:20 [facility] 01/29 06:08 Order name: NT PRO-BNP; Complete Time: 07:20 [facility] 01/29 06:08 Order name: PT-INR; Complete Time: 07:00 [facility] 01/29 06:08 Order name: Troponin (emerg Dept Use Only); Complete Time: 07:20 [facility] 01/29 06:08 Order name: XRAY Chest (1 view); Complete Time: 07:26 jmm 01/29 06:08 Order name: Lipase; Complete Time: 07:20 [facility] 01/29 06:09 Order name: Basic Metabolic Panel; Complete Time: 07:20 EDMS 01/29 06:12 Order name: CT Head Brain wo Cont; Complete Time: 07:20 [facility] 01/29 07:28 Order name: CT Head Angio; Complete Time: 08:06 [facility] 01/29 06:08 Order name: EKG; Complete Time: 06:09 [facility] 01/29 06:08 Order name: Cardiac monitoring; Complete Time: 06:40 jm 01/29 06:08 Order name: EKG - Nurse/Tech; Complete Time: 06:40 [facility] 01/29 06:08 Order name: IV Saline Lock; Complete Time: 06:29 [facility] 01/29 06:08 Order name: Labs collected and sent; Complete Time: 06:29 [facility] 01/29 06:08 Order name: O2 Per Protocol; Complete Time: 06:29 [facility] 01/29 06:08 Order name: O2 Sat Monitoring; Complete Time: 06:29 [facility] 01/29 07:28 Order name: CT Neck Angio; Complete Time: 08:06 jmm Administered Medications: 06:28 Drug: Zofran (Ondansetron) 4 mg Route: IVP; Site: right antecubital; ea 07:30 Follow up: Response: No adverse reaction em 06:29 Drug: Valium 2 mg Route: IVP; Site: right antecubital; ea 07:31 Follow up: Response: No adverse reaction; No change in condition em 07:30 Drug: Meclizine 25 mg Route: PO; em 08:06 Follow up: Response: No adverse reaction; No change in condition em 08:10 Drug: Valium 2 mg Route: IVP; Site: right forearm; em 08:45 Follow up: Response: No adverse reaction; No change in condition em 09:11 Drug: Scopolamine 1 application {Note: applied behind right ear.} Route: Transdermal; em Site: affected area; 10:17 Follow up: Response: No adverse reaction em 09:31 Drug: Zofran (Ondansetron) 4 mg Route: IVP; Site: right forearm; em 10:17 Follow up: Response: No adverse reaction; Marked relief of symptoms; Nausea is decreasedem 10:17 Drug: Tylenol 650 mg Route: PO; em 11:14 Follow up: Response: No adverse reaction; Marked relief of symptoms; Pain is decreased em Disposition: 01/30/20 10:09 Discharged to Home. Impression: Vertigo. - Condition is Stable. - Discharge Instructions: Benign Positional Vertigo, Carmen Maneuver Self-Care. - Prescriptions for Zofran ODT 4 mg Oral tablet,disintegrating - place 1 tablet by TRANSLINGUAL route every 4-6 hours; 20 tablet. Meclizine 25 mg Oral Tablet - take 1 tablet by ORAL route every 8 hours As needed; 30 tablet. - Medication Reconciliation Form, Thank You Letter, Antibiotic Education, Prescription Opioid Use, Work release form form. - Follow up: Private Physician; When: 2 - 3 days; Reason: Recheck today's complaints, Continuance of care, Re-evaluation by your physician. Signatures: Dispatcher [employer] [facility] Beau Guzmán PA PA jmm Munoz, Edgar, RN RN Cecelia Pierre, RN RN Cyndee Leonard, RN RN ea Corrections: (The following items were deleted from the chart) 07:30 07:24 Carotid Artery Bilateral+US.RAD.BRZ ordered. [facility] EDCO 07:30 07:24 Brain Wo Cont+MRI.RAD.BRZ ordered. [facility] EDCO 11:33 10:09 01/30/2020 10:09 Discharged to Home. Impression: Vertigo. Condition is Stable. em Forms are Medication Reconciliation Form, Thank You Letter, Antibiotic Education, Prescription Opioid Use. Follow up: Private Physician; When: 2 - 3 days; Reason: Recheck today's complaints, Continuance of care, Re-evaluation by your physician. jose
[2020-01-30] MEDS ORDERED: ACETAMINOPHEN 325 MG TABLET ONE (10:14)
[2020-01-30 11:41] VITALS: TEMP 97.2
[2020-01-30 11:45] VITALS: BP 132/67; O2SAT 100
--- NOTE | 2020-01-30 12:50 | EKG ---
Test Date: 2020-01-30 Test Time: 06:34:48 Contract Technician: MAGGI MEASUREMENT RESULTS: Intervals: Rate: 58 MI: QRSD: 122 QT: 484 QTc: 475 [place]: P: MI: QRS: -46 T: -40 INTERPRETIVE STATEMENTS: Wide QRS rhythm Left anterior fascicular block Left ventricular hypertrophy with QRS widening Nonspecific ST and T wave abnormality Abnormal ECG Compared to ECG 02/21/2018 11:06:46 Uncertain supraventricular rhythm now present Left anterior fascicular block now present Left ventricular hypertrophy now present ST (T wave) deviation now present Sinus rhythm no longer present Left bundle-branch block no longer present Electronically Signed On 01-30-20 12:49:37 CDT by Jj Sanchez
== END 2020-01-30 11:33 | disposition home or self-care (01) ==
LOC: ER 05:41
DX: R42 Dizziness and giddiness (principal); I44.4 Left anterior fascicular block; R94.31 Abnormal electrocardiogram [ECG] [EKG]; I11.0 Hypertensive heart disease with heart failure; I50.9 Heart failure, unspecified; E03.9 Hypothyroidism, unspecified; E78.5 Hyperlipidemia, unspecified; E11.9 Type 2 diabetes mellitus without complications; G47.30 Sleep apnea, unspecified
CPT/HCPCS: 36415; 70450; 70496; 70498; 71045; 80048; 80076; 83690; 83735; 83880; 84484; 85025; 85610; 93005; 96374; 96375; 99284; J2405; J3360; J8597; Q9967

== ENCOUNTER 2020-05-04 19:05 | Inpatient (IN) | payer OTHER ==
--- OUTSIDE RECORDS SUMMARY | 2020-05-04 19:07 | XMS REPORT | Clinical Summary ---
:1955 Author Organization [facility] Address [address] [place] [address] Care Team Providers Name Role Phone MD Jonah Primary Care Provider Allergies Active Allergy Reactions [...] daily. chlorproMAZINE Take 25 mg by 0 A ctive (THORAZINE) 25 MG mouth nightly. tablet divalproex [...] Noted Date S/P cervical spinal fusion 06/03/2016 Encounters Date Type Specialty Care Team Description 12/10/2019 Anesthesia Event Plastic Surgery Gary West II, MD Felan, Veronica Lynn, NP 10/08/2019 Transcribe Orders Wound Care Aayush Mcdaniels Open wo und (Primary MD Nicholas Dx) 10/08/2019 Transcribe Orders Wound Care Briseyda Santiago, Opsilas n wound (Primary MD Dx) after 05/04/2019 Social History Tobacco Use Types Packs/Day Years [...] Health Maintenance Due Date Last Done Comments DIABETIC RETINAL EYE EXAM 1955 DIABETIC FOOT EXAM 1964 URINE MICROALBUMIN 1964 CERVICAL CANCER SCREENING 1975 BREAST CANCER SCREENING 2004 COLONOSCOPY SCREENING 2004 SHINGLES VACCINES (#1) 2004 65+ PNEUMOCOCCAL VACCINE (1 of 2 - PCV13) 2019 INFLUENZA VACCINE 05/17/2020 Implants Implanted Type Area Oracle Apex Developer Device Shelf Model / Identifier Expiration Serial / Date Lot Bone Matriz Osteocel Pro Small - [id number] - [id number] Human Anterior: NUVASIVE 09/13/2020 [id number] / Implanted: Qty: 1 on 06/03/2016 by Lucio Arzate MD at [facility] Tissue Spine [id number] / Implants Cervical [id number] Distraction Pin- 12mm - [id number] IMPLANT Anterior: NUVASIVE SPINE [id number] / Implanted: 06/03/2016 at [facility] (Quantity not on file) DEVICES Spine [id number] / Cervical Gradient Plus , Temporary Tacks - [id number] IMPLANT Anterior: NUVASIVE SPINE 06/02/2026 [id number] / Implanted: 06/03/2016 at [facility] (Quantity not on file) DEVICES Spine [id number] / Cervical [id number] Spacer Spinal Cntord Med 5mm - [id number] Spinal Anterior: NUVASIVE 06/02/2026 [id number] / Implanted: 06/03/2016 at [facility] (Quantity not on file) Implants Spine [id number] / Cervical [id number] Screw Spinal Fxd Slf-Tap 4x15mm Ethridge Revolution Acp - [id number] Spinal Anterior: NUVASIVE [id number] / Implanted: 06/03/2016 at [facility] (Quantity not on file) Implants Spine [id number] / Cervical Screw Spinal Brenden Slf-Tap 4x15mm Ethridge Revolution Acp - [id number] Spinal Anterior: NUVASIVE [id number] / Implanted: 06/03/2016 at [facility] (Quantity not on file) Implants Spine [id number] / Cervical Plate Spinal Revltn 1lvl 20mm Ethridge Acp - [id number] Spinal Anterio r: NUVASIVE 06/02/2026 [id number] / Implanted: 06/03/2016 at [facility] (Quantity not on file) Implants Spine [id number] / Cervical [id number] Results Not on fileafter 05/04/2019 Insurance Payer Benefit Plan / Subscriber ID Effective Dates Phone Addre ss Type Group HUMANA HUMANA xxxxxxxxx 2019-Present HM O HMO/POS/EPO/OPEN ACCESS MEDICARE MEDICARE PART A xxxxxxxxxxx 2013-Present [place], [place] Medicare AND B [address] [place] [address] Advance Directives For more information, please contact: [phone] Type Date Recorded Patient Training Assistant Explanati on Advance Directives, Living Will and Medical Power of Dust Mixer
--- OUTSIDE RECORDS SUMMARY | 2020-05-04 19:08 | XMS REPORT | Clinical Summary ---
:1955 Author Organization [facility] Address [address] [place] [address] Care Team Providers Name Role Phone Unavailable Primary Care Provider Unavailable Allergies Active Allergy Reactions Severity Noted Date Comments Iodine Swelling 05/20/2016 Shrimp Swelling 05/20/2016 Medications Medication Sig Dispensed Refills Start Date End Date Status traZODone (DESYREL) 50 Take 50 mg by 0 Active MG tablet mouth nightly. montelukast (SINGULAIR) Take 10 mg by 0 Active 10 mg tablet mouth every morning. glimepiride (AMARYL) 1 Take 1 mg by 0 Active MG tablet mouth every evening. furosemide (LASIX) 40 Take 20 mg by 0 Active MG tablet mouth every morning . amitriptyline (ELAVIL) Take 25 mg by 0 Active 25 MG tablet mouth nightly. carvedilol (COREG) 6.25 Take 6.25 mg by 0 Active MG tablet mouth 2 (two) times daily. divalproex (DEPAKOTE) Take 1,000 mg by 0 Active 500 MG EC tablet mouth 2 (two) times daily . atorvastatin (LIPITOR) Take 10 mg by 0 Active 10 MG tablet mouth daily. levothyroxine Take 150 mcg by 0 Active (SYNTHROID, LEVOTHROID) mouth Every 150 MCG tablet morning on an empty stomach. potassium chloride Take 10 mEq by 0 Active (KLOR-CON) 10 MEQ CR mouth every tablet morning. venlafaxine Take 150 mg by 0 Act myah (EFFEXOR-XR) 150 MG 24 mouth daily. hr capsule meloxicam (MOBIC) 7.5 Take 15 mg by 0 Active MG tablet mouth daily . ferrous gluconate Take 324 mg by 0 Active (FERGON) 324 MG tablet mouth daily with breakfast. cholecalciferol, Take 1,000 Units 0 Active vitamin D3, 2,000 unit by mouth daily. Tab ondansetron (ZOFRAN) 8 Take by mouth. 0 Active MG tablet ciprofloxacin HCl Take 500 mg by 0 Active (CIPRO) 500 MG tablet mouth. empagliflozin Take 10 mg by 0 Ac tive (JARDIANCE) 10 mg mouth daily. tablet Active Problems Problem Noted Date Sepsis, due to unspecified organism 02/27/2019 Bowel and bladder incontinence 02/27/2019 DM (diabetes mellitus), type 2 02/27/2019 Essential hypertension 02/27/2019 Low back pain 02/27/2019 Mastitis of left breast unrelated to or kash[place] stfeeding 11/30/2017 Diabetes mellitus 11/30/2017 KWAKU (obstructive sleep apnea) 11/30/2017 Thyroid disease 11/30/2017 Morbid obesity 11/30/2017 Essential hypertension 11/30/2017 Social History Tobacco Use Types Packs/Day Years [...] Signs Not on file Plan of Treatment Not on file Results Not on fileafter 05/04/2019 Insurance Payer Benefit Plan / Subscriber ID Type Phone Address Group BLUE CROSS/BLUE BCBS OS xxxxxxxxxxxx PPO [phone] [address] X [id number] SHIELD POS/PPO/[place] [address] AETNA - MGD CARE AETNA HMO POS xxxxxxxxxx HMO/POS QPOS Advance Directives For more information, please contact:[address] [phone] Code Status Date Activated Date Inactivated Comments Full Code 02/27/2019 12:49 PM 03/03/2019 8:46 PM This code status was determined by: Patient Full Code 11/30/2017 8:33 PM 12/03/2017 4:55 PM This code status was determined by: Patient
--- OUTSIDE RECORDS SUMMARY | 2020-05-04 19:10 | XMS REPORT | Continuity of Care Document ---
:1955 Author Organization [facility] t Address [address] [place] [place] [address] Care Team Providers Name Role Phone Jonah CHAVEZ Primary Care Physician DR CLEMENTINE Attending Clinician Unavailable Brett CHAVEZ, Francisco Attending Clinician Gerri Braswell NP Attending Clinician Nicholas Mcdaniels MD Attending Clinician María Elena Santiago MD Attending Clinician GISELLE GAONA Attending Clinician Unavailable GIOVANNI SPRING Attending Clinician Unavailable DR CLEMENTINE Admitting Clinician Unavailable MARGARITA Admitting Clinician Unavailable Payers Payer Name Policy Policy Number Effective Expiration Source Type Date Date HUMANAHUMANA xxxxxxxxx 2019 [place] HMO/POS/EPO/OPEN 00:00:00 Methodis t [id number] 019-[facility] MEDICAREMEDICARE PART xxxxxxxxxxx 2013 Germán Mcgee AND 00:00:00 Scientologist Bxxxxxxxxxxx2013- [place] Condition Condition Condition Status Onset Resolution Last Treating Co mments Source Name Details Category Date Date Treatment Clinician Date Sepsis, Sepsis, Disease Active [facility] to [facility]14 [facility] - unspecifie unspecifie 00:00: Me dical d organism d organism 00 Ce nter Bowel and Bowel and Disease Active [facility] bladder bladder 5-14 [facility] - incontinen incontinen 00:00: Me dical ce ce 00 Center DM DM Disease Active [facility] (diabetes (diabetes 5-14 [facility] - mellitus), mellitus), 00:00: Me dical type 2 type 2 00 [place] Essential Essential Disease Active [facility] hypertensi hypertensi 5-14 Estella kes - on on 00:00: Medical 00 [place] Low back Low back Disease Active [facility] pain pain 5-14 [facility] - 00:[facility]: Medical 00 [place] Mastitis Mastitis Disease [facility] of left of left 2-14 [facility] - breast breast 00:00: Medical unrelated unrelated 00 Cent er to to or or breastfeed breastfeed ing ing Diabetes Diabetes Disease Active [facility] mellitus mellitus 2-14 [facility] - 00:[facility]: Medical 00 [place] KWAKU KWAKU Disease Active [facility] (obstructi (obstructi 2-14 Estella kes - ve sleep ve sleep 00:00: Medica l apnea) apnea) 00 Center Thyroid Thyroid Disease Active [facility] disease disease 2-14 [facility] - 00:00: Medical 00 [place] Morbid Morbid Disease Active [facility] obesity obesity 2-14 [facility] - 00:00: Medical 00 [place] Essential Essential Disease Active [facility] hypertensi hypertensi 2-14 Estella kes - on on 00:00: Medical 00 [place] S/P S/P Disease Active [place] cervical cervical 8-18 [facility] i spinal spinal 00:00: st fusion fusion 00 Sinusitis Sinusitis Problem Active [facility] - Chronic - Chronic for ENT Cellulitis Cellulitis Problem Active C enter of face of face for ENT Allergic Allergic Problem Active Cente r rhinitis rhinitis for EN T due to due to pollen pollen Arthralgia Arthralgia Problem Active C enter of of for ENT bilateral bilateral temporoman temporoman dibular dibular joint joint Nasal Nasal Problem Active Center congestion congestion fo r ENT Hearing Hearing Problem Active Center loss - loss - for ENT Sensorineu Sensorineu ral ral Bilateral Bilateral Wheezing Wheezing Problem Active Cente r for ENT Nasal Nasal Problem Active Center airway airway for ENT obstructio obstructio n n Obstructiv Obstructiv Problem Active C enter e sleep e sleep for ENT apnea apnea Cough Cough Problem Active Center for ENT 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 susceptibl e e Staphyloco Staphyloco ccus ccus aureus aureus infection infection as the as the cause of cause of diseases diseases classified classified elsewhere elsewhere Allergies, Adverse Reactions, Alerts Allergy Allergy Status Severity Reaction(s) Onset Inactive Treating Comm ents Source Name Type Date Date Clinician Iodine Propensi Active Swelling [facility] ty to 05-20 [facility] - adverse 00:00: Medical reaction 00 Center s Shrimp Propensi Active Swelling [facility] ty to 05-20 [facility] - adverse 00:00: Medical reaction 00 Center s Iodine Propensi Active Swelling [place] ty to 05-20 [facility] adverse 00:00: st reaction 00 s to drug Shrimp Propensi Active Swelling [place] ty to 05-20 [facility] adverse 00:00: st reaction 00 s to drug IODINE DA Active [facility] CONTRAST 05-27 [place] 00:00: [facility]ope [facility] No Known DA Active [facility] Drug 05-27 [place] Allergie 00:00: Orthope s 00 dic [facility] No Known DA Active [facility] Food 05-27 [place] Allergie 00:00: Orthope s 00 dic Hosp[facility] No Known DA Active [facility] Other 05-27 [place] Allergie 00:00: Orthope s 00 dic Hospita l iodine DA Active U [facility] 06-14 [place] 00:00: Orthope 00 dic [facility]ospita l Social History Social Habit Start Date Stop Date Quantity Comments Source Sex Assigned At [facility] ethodist Alcohol intake 2016-06-07 2016-06-07 [facility] non-drinker of alcohol (finding) Smoking Status Start Date Stop Date Source Never smoker [place] Medications Ordered Filled Start Stop Current Ordering Indication Dosage Frequency Signature Comments Components Source Medication Medication Date Date Medication? Clinician (SIG) Name Name divalproex Yes 1000mg Q.5D Take 1,[address] [facility] (DEPAKOTE) 5-14 mg by [facility] - 500 MG EC 18:13: mouth 2 Medic al tablet 55 (two) Center times daily . empaglifloz Yes 10mg QD Take [address] in 5-14 by mouth [facility] - (JARDIANCE) 18:09: daily. Medi macario 10 mg 08 [place] tablet furosemide Yes 20mg QD Take [address] (LASIX) 40 5-14 by mouth [facility] - MG tablet 16:37: every Medical 21 morning . [place] ondansetron Yes Take by [facility] (ZOFRAN) 8 5-14 mouth. [facility] - MG tablet 16:37: Medical 21 [place] ciprofloxac Yes 500mg Take [address] in HCl 5-14 mg by [facility] - (CIPRO) 500 16:37: mouth. Medi macario MG tablet 21 [place] meloxicam Yes 15mg QD Take [address] (MOBIC) 7.5 5-14 by mouth Luke s - MG tablet 16:32: daily . Medic al 11 [place] ferrous Yes 324mg Take 324 [facility] gluconate 2-15 mg by [facility] - (FERGON) 01:47: mouth Medical 324 MG 35 daily with [place] tablet breakfast. cholecalcif Yes 1000U QD Take 1,[address] kyle, 2-15 Units by [facility] - vitamin D3, 01:47: mouth Medic al 2,000 unit 35 daily. [place] Tab amitriptyli Yes 25mg QD Take [address] [facility] ne (ELAVIL) 2-15 by mouth Luke s - 25 MG 01:47: nightly. Medical tablet 34 [place] carvedilol Yes 6.25mg Q.5D Take 6.[address] (COREG) 2-15 mg by [facility] - 6.25 MG 01:47: mouth 2 Medical tablet 34 (two) Center times daily. atorvastati Yes 10mg QD Take [address] n (LIPITOR) 2-15 by mouth Luke s - 10 MG 01:47: daily. Medical tablet 34 [place] levothyroxi Yes 150ug Take [address] ne 2-15 mcg by [facility] - (SYNTHROID, 01:47: mouth Medic al LEVOTHROID) 34 Every Center 150 MCG morning on tablet an empty stomach. potassium Yes 10meq QD Take [address] chloride 2-15 mEq by [facility] - (KLOR-CON) 01:47: mouth Medica l 10 MEQ CR 34 every Center tablet morning. venlafaxine Yes 150mg QD Take [address] (EFFEXOR-XR 2-15 mg by [facility] - ) 150 MG 24 01:47: mouth Medic al hr capsule 34 daily. [place] traZODone Yes 50mg QD Take [address] (DESYREL) 2-15 by mouth [facility] - 50 MG 01:47: nightly. Medical tablet 33 [place] montelukast Yes 10mg QD Take [address] (SINGULAIR) 2-15 by mouth Luke s - 10 mg 01:47: every Medical tablet 33 morning. [place] glimepiride Yes 1mg QD Take [address] (AMARYL) 1 2-15 by mouth [facility] - MG tablet 01:47: every Medical 33 evening. [place] Bactrim Bactrim 2018- No Deepthi 1 tablet [place] 11-1412 [facility] for ENT 00:00: 00:00 00 :00 Bactroban Bactroban 2018- No Deepthi 1 [place] 11-08 [facility] applicatio for EN T 00:00: 00:00 n to 00 :00 affected area PHENTERMINE Yes Take by [place] HCL 8-19 mouth. [facility]i (PHENTERMIN 11:01: st E ORAL) 07 traMADol Yes 50mg Q6H Take 50 mg [place] (ULTRAM) 50 8-19 by mouth Meth ronit mg tablet 11:01: every 6 st 07 (six) hours as needed for moderate pain. atorvastati Yes 10mg QD Take 10 mg [place] n (LIPITOR) 8-19 by mouth Meth ronit 10 MG 11:01: every st tablet 07 evening. carvedilol Yes 6.25mg Q.5D Take 6.25 [place] (COREG) 8-19 mg by Methodi 6.25 MG 11:01: mouth 2 st tablet 07 (two) times a day with meals. furosemide Yes 80mg QD Take 80 mg [place] (LASIX) 80 8-19 by mouth Metho di MG tablet 11:01: daily. st 07 chlorproMAZ Yes 25mg QD Take 25 mg [place] INE 8-19 by mouth [facility] (THORAZINE) 11:01: nightly. st 25 MG 07 tablet divalproex Yes 1000mg QD Take 1,000 [place] (DEPAKOTE) 8-19 mg by [facility]i 500 MG EC 11:01: mouth st tablet 07 nightly. levothyroxi Yes 200ug QD Take 200 [place] ne 8-19 mcg by [facility] (SYNTHROID, 11:01: mouth st LEVOTHROID) 07 every 200 MCG morning. tablet metFORMIN Yes 500mg Q.5D Take [address] [place] (GLUCOPHAGE 8-19 mg by Methodi ) 500 MG 11:01: mouth 2 st tablet 07 (two) times a day with meals. potassium Yes 10meq QD Take 10 [place] chloride 8-19 mEq by [facility] (K-DUR,KLOR 11:01: mouth st -CON) 10 07 daily. MEQ CR tablet VENLAFAXINE Yes 150mg QD Take 150 [place] HCL 8-19 mg by [facility] (VENLAFAXIN 11:01: mouth st E ORAL) 07 daily. MULTIVITAMI Yes 1{tbl} QD Take 1 [place] N ORAL 8-19 tablet by Methodi 11:01: mouth st 07 daily. Medrol Medrol Yes Deepthi as Center (Ranjeet) (Ranjeet) 1-11 [place] directed for ENT 00:00: 00 Ferrous Ferrous Yes Deepthi not Center Gluconate Gluconate [place] defined for ENT Pravastatin Pravastatin Yes Deepthi 1 tablet Center Sodium Sodium [place] for ENT ProAir HFA ProAir HFA Yes Deepthi 2 puffs as Center [place] needed for ENT Depakote ER Depakote ER Yes Deepthi not Center [place] defined for ENT Mupirocin Mupirocin Yes Deepthi 1 Ce nter [place] applicatio for ENT n to affected area Hydrochloro Hydrochloro Yes Deepthi 1 tablet Center thiazide thiazide [place] for E NT Levothyroxi Levothyroxi Yes Deepthi 1 tablet Center ne Sodium ne Sodium [place] for ENT Trazodone Trazodone Yes Deepthi 1 tablet Center HCl HCl [facility] at bedtime for ENT Augmentin Augmentin Yes Deepthi not Ce nter [place] defined for ENT Metformin Metformin Yes Deepthi 1 tablet Center HCl HCl Lcementine with meals for ENT Procedures This patient has no known procedures. Plan of Care Planned Activity Planned Date Details Comments Source Future Scheduled 2020-05-17 INFLUENZA VACCINE [place] Scientologist Test 00:00:00 [code = INFLUENZA VACCINE] Future Scheduled 2019 65+ PNEUMOCOCCAL [place] Scientologist Test 00:00:00 VACCINE (1 of 2 - PCV13) [code = 65+ PNEUMOCOCCAL VACCINE (1 of 2 - PCV13)] Future Scheduled 2004 BREAST CANCER [facility] thodist Test 00:00:00 SCREENING [code = BREAST CANCER SCREENING] Future Scheduled 2004 COLONOSCOPY SCREENING [facility] Scientologist Test 00:00:00 [code = COLONOSCOPY SCREENING] Future Scheduled 2004 SHINGLES VACCINES (#1) [place] Scientologist Test 00:00:00 [code = SHINGLES VACCINES (#1)] Future Scheduled [facility] malignant neoplasm of cervix (procedure) [code = 212657126] Future Scheduled 1964 DIABETIC FOOT EXAM [place] Scientologist Test 00:00:00 [code = DIABETIC FOOT EXAM] Future Scheduled 1964 URINE MICROALBUMIN [place] Scientologist Test 00:00:00 [code = URINE MICROALBUMIN] Future Scheduled 1954 DIABETIC RETINAL EYE [place] Scientologist Test 00:00:00 EXAM [code = DIABETIC RETINAL EYE EXAM] Encounters Start End Encounter Admission Attending Care Care Encounter Source Date/Time Date/Time Type Type Clinicians Facility Department ID 2020-04-14 Inpatient [facility] [id number] 96 [place] 15:08:00 [facility] 2018-02-07 2018-02-07 Outpatient [facility] [id number] [place] 15:56:00 15:56:00 [facility] 2018-02-07 2018-02-07 Outpatient [facility] [id number] [place] 15:16:00 15:16:00 [facility] for [facility] 2017-11-28 2017-11-28 Outpatient [facility] [id number] [place] 09:30:00 09:30:00 [facility] 2017-11-18 2017-11-18 Outpatient [facility] [id number] [place] 10:50:00 10:50:00 [facility] 2017-11-15 2017-11-15 Outpatient [facility] [id number] [place] 09:26:00 09:26:00 [facility] Results Test Description Test Time Test Comments Results Result Comments Source BLOOD CULTURE 2019-03-04 20:01:00 Test Item Value Reference Range Interpretation Comme nts CULTURE ([facility]) (test code = 1095) No growth in 5 days BLOOD [id number] 20:01:00 Test Item Value Reference Range Interpretation Comments CULTURE ([facility]) (test No growth in 5 days code = 1095) POCT-GLUCOSE [id number] 11:57:00 Test Item Value Reference Range Interpretation Comments POC-GLUCOSE METER 117 mg/dL 70-110 H TESTED AT [place] [address] ([facility]) (test code = MORENITA Schmidt [facility] 1538) [id number] POCT-GLUCOSE [id number] 07:57:00 Test Item Value Reference Range Interpretation Comments POC-GLUCOSE METER 110 mg/dL 70-110 TESTED AT [place] [address] ([facility]) (test code = MORENITA Schmidt [facility] 1538) [id number] POCT-GLUCOSE [id number] 21:11:00 Test Item Value Reference Range Interpretation Comments POC-GLUCOSE METER 100 mg/dL 70-110 TESTED AT [place] [address] ([facility]) (test code = MORENITA Schmidt [facility] 1538) [id number] MR, SPINE, LUMBAR, WITHOUT [id number] 20:59:00FINAL REPORT MR, SPINE, LUMBAR, WITHOUT CONTRAST [...] and endplate changes. Signed: JR Elaine, Francisco Polo Verified Date/Time: 03/02/2019 20:59:13 Reading Location: [facility] Radiology Reading Room POCT-GLUCOSE [id number] 18:37:00 Test Item Value Reference Range Interpretation Comments POC-GLUCOSE METER 130 mg/dL 70-110 H TESTED AT [place] [address] ([facility]) (test code = [facility] 1538) [id number] POCT-GLUCOSE [id number] 12:03:00 Test Item Value Reference Range Interpretation Comments POC-GLUCOSE METER 105 mg/dL 70-110 TESTED AT [place] [address] ([facility]) (test code = [facility] 1538) [id number] POCT-GLUCOSE [id number] 06:55:00 Test Item Value Reference Range Interpretation Comments POC-GLUCOSE METER 126 mg/dL 70-110 H TESTED AT [place] [address] ([facility]) (test code = [facility] 1538) [id number] POCT-GLUCOSE [id number] 20:31:00 Test Item Value Reference Range Interpretation Comments POC-GLUCOSE METER 98 mg/dL 70-110 TESTED AT [place] [address] ([facility]) (test code = MORENITA Schmidt [facility] [address] 1538) CT, SPINE, LUMBAR, WO [id number] 19:49:00FINAL REPORT CT, SPINE, LUMBAR, WO CONTRAST [...] MDReport Verified Date/Time: 03/01/2019 19:49:57 Reading Location: [address] Neuro Reading Room POCT-GLUCOSE [id number] 16:35:00 Test Item Value Reference Range Interpretation Comments POC-GLUCOSE METER 172 mg/dL 70-110 H TESTED AT [place] [address] ([facility]) (test code = MORENITA Schmidt [facility] 1538) [id number] POCT-GLUCOSE [id number] 11:56:00 Test Item Value Reference Range Interpretation Comments POC-GLUCOSE METER 202 mg/dL 70-[address] [facility] 6720 (BEAKER) (test code = MORENITA Schmidt [facility] 1538) [id number] POCT-GLUCOSE [id number] 07:34:00 Test Item Value Reference Range Interpretation Comments POC-GLUCOSE METER 135 mg/dL 70-[address] [facility] 6720 (BEAKER) (test code = MORENITA Schmidt [facility] 1538) [address] CALCIUM, [id number] 06:34:00 Test Item Value Reference Range Interpretation Comments CALCIUM IONIZED (BEAKER) (test 1.06 mmol/L 1.12-1.27 L code = 698) PH, BLOOD (BEAKER) (test code = 7.37 1810) [id number] 05:46:00 Test Item Value Reference Range Interpretation Comments MAGNESIUM (BEAKER) (test code = 2.1 mg/dL 1.6-2.6 627) BASIC METABOLIC [id number] 05:46:00 Test Item Value Reference Range Interpretation Comments SODIUM (BEAKER) 141 meq/L 136-145 (test code = 381) POTASSIUM (BEAKER) 4.3 meq/L 3.5-5.1 (test code = 379) CHLORIDE (BEAKER) 110 meq/L 98-107 H (test code = 382) CO2 (BEAKER) (test 25 meq/L 22-29 code = 355) BLOOD UREA NITROGEN 16 mg/dL 7-21 (BEAKER) (test code = 354) CREATININE (BEAKER) 0.71 mg/dL 0.57-1.25 (test code = 358) GLUCOSE RANDOM 112 mg/dL 70-105 H (BEAKER) (test code = 652) CALCIUM (BEAKER) 8.4 mg/dL 8.4-10.2 (test code = 697) EGFR (BEAKER) (test 83 mL/min/1.73 ESTIMA ELVA GFR IS code = 1092) sq m NOT ACCURATE CREATININE CLEARANCE IN PREDICTING GLOMERULAR FILTRATION RATE . ESTIMATED GFR I S NOT APPLICABLE FOR DIALYSIS PATIEN TS. CBC W/PLT COUNT & AUTO [id number] 05:29:00 Test Item Value Reference Range Interpretation Comments WHITE BLOOD CELL COUNT (BEAKER) 6.2 K/ L 3.5-10.5 (test code = 775) RED BLOOD CELL COUNT (BEAKER) 3.57 M/ L 3.93-5.22 L (test code = 761) HEMOGLOBIN (BEAKER) (test code = 11.0 GM/DL 11.2-15.7 L 410) HEMATOCRIT (BEAKER) (test code = 36.2 % 34.1-44.9 411) MEAN CORPUSCULAR VOLUME (BEAKER) 101.4 fL 79.4-94.8 H (test code = 753) MEAN CORPUSCULAR HEMOGLOBIN 30.8 pg 25.6-32.2 (BEAKER) (test code = 751) MEAN CORPUSCULAR HEMOGLOBIN CONC 30.4 GM/DL 32.2-35.5 L (BEAKER) (test code = 752) RED CELL DISTRIBUTION WIDTH 16.2 % 11.7-14.4 H (BEAKER) (test code = 412) PLATELET COUNT (BEAKER) (test 222 K/CU MM 150-450 code = 756) MEAN PLATELET VOLUME (BEAKER) 9.5 fL 9.4-12.3 (test code = 754) NUCLEATED RED BLOOD CELLS 0 /100 WBC 0-0 (BEAKER) (test code = 413) NEUTROPHILS RELATIVE PERCENT 43 % (BEAKER) (test code = 429) LYMPHOCYTES RELATIVE PERCENT 45 % (BEAKER) (test code = 430) MONOCYTES RELATIVE PERCENT 9 % (BEAKER) (test code = 431) EOSINOPHILS RELATIVE PERCENT 3 % (BEAKER) (test code = 432) BASOPHILS RELATIVE PERCENT 1 % (BEAKER) (test code = 437) NEUTROPHILS ABSOLUTE COUNT 2.63 K/ L 1.56-6.13 (BEAKER) (test code = 670) LYMPHOCYTES ABSOLUTE COUNT 2.75 K/ L 1.18-3.74 (BEAKER) (test code = 414) MONOCYTES ABSOLUTE COUNT (BEAKER) 0.55 K/ L 0.24-0.36 H (test code = 415) EOSINOPHILS ABSOLUTE COUNT 0.18 K/ L 0.04-0.36 (BEAKER) (test code = 416) BASOPHILS ABSOLUTE COUNT (BEAKER) 0.03 K/ L 0.01-0.08 (test code = 417) IMMATURE GRANULOCYTES-RELATIVE 0 % 0-1 PERCENT (BEAKER) (test code = 2801) LACTIC ACID, [id number] 05:29:00 Test Item Value Reference Range Interpretation Comments LACTATE BLOOD VENOUS (2) ([facility]) 1.1 mmol/L 0.5-2.2 (test code = 2872) POCT-GLUCOSE [id number] 20:48:00 Test Item Value Reference Range Interpretation Comments POC-GLUCOSE METER 109 mg/dL 70-110 TESTED AT [place] [address] ([facility]) (test code = [facility] 1538) [id number] POCT-GLUCOSE [id number] 16:53:00 Test Item Value Reference Range Interpretation Comments POC-GLUCOSE METER 117 mg/dL 70-110 H TESTED AT [place] [address] ([facility]) (test code = [facility] 1538) [id number] POCT-GLUCOSE [id number] 11:55:00 Test Item Value Reference Range Interpretation Comments POC-GLUCOSE METER 173 mg/dL 70-110 H TESTED AT [place] [address] ([facility]) (test code = [facility] 1538) [id number] POCT-GLUCOSE [id number] 08:46:00 Test Item Value Reference Range Interpretation Comments POC-GLUCOSE METER 120 mg/dL 70-110 H TESTED AT [place] [address] ([facility]) (test code = [facility] 1538) [id number] HEMOGLOBIN [id number] 07:05:00 Test Item Value Reference Range Interpretation Comments HEMOGLOBIN A1C ([facility]) (test code = 6.9 % 4.3-6.1 H 368) T4, [id number] 06:32:00 Test Item Value Reference Range Interpretation Comments FREE T4 ([facility]) (test code = 655) 1.00 ng/dL 0.70-1.48 TSH/FREE T4 IF [id number] 05:26:00 Test Item Value Reference Range Interpretation Comments THYROID STIMULATING HORMONE 5.10 uIU/mL 0.35-4.94 H ([facility]) (test code = 772) VITAMIN B12 AND [id number] 05:20:00 Test Item Value Reference Range Interpretation Comments VITAMIN B12 ([facility]) (test code = 1226 pg/mL 213-816 H 774) FOLATE (BEAKER) (test code = 362) 14.8 ng/mL >=7.0 BASIC METABOLIC [id number] 05:17:00 Test Item Value Reference Range Interpretation Comments SODIUM (BEAKER) 141 meq/L 136-145 (test code = 381) POTASSIUM (BEAKER) 4.0 meq/L 3.5-5.1 (test code = 379) CHLORIDE (BEAKER) 109 meq/L 98-107 H (test code = 382) CO2 (BEAKER) (test 24 meq/L 22-29 code = 355) BLOOD UREA NITROGEN 21 mg/dL 7-21 (BEAKER) (test code = 354) CREATININE (BEAKER) 0.78 mg/dL 0.57-1.25 (test code = 358) GLUCOSE RANDOM 106 mg/dL 70-105 H (BEAKER) (test code = 652) CALCIUM (BEAKER) 7.8 mg/dL 8.4-10.2 L (test code = 697) EGFR (BEAKER) (test 74 mL/min/1.73 ESTIMA ELVA GFR IS code = 1092) sq m NOT ACCURATE CREATININE CLEARANCE IN PREDICTING GLOMERULAR FILTRATION RATE . ESTIMATED GFR I S NOT APPLICABLE FOR DIALYSIS PATIEN TS. CALCIUM, [id number] 05:14:00 Test Item Value Reference Range Interpretation Comments CALCIUM IONIZED (BEAKER) (test 0.93 mmol/L 1.12-1.27 L code = 698) PH, BLOOD (BEAKER) (test code = 7.49 1810) [id number] 04:59:00 Test Item Value Reference Range Interpretation Comments PHOSPHORUS (BEAKER) (test code = 4.2 mg/dL 2.3-4.7 604) [id number] 04:59:00 Test Item Value Reference Range Interpretation Comments MAGNESIUM (BEAKER) (test code = 2.0 mg/dL 1.6-2.6 627) LACTIC ACID, [id number] 04:55:00 Test Item Value Reference Range Interpretation Comments LACTATE BLOOD VENOUS (2) (BEAKER) 1.8 mmol/L 0.5-2.2 (test code = 2872) CBC W/PLT COUNT & AUTO [id number] 04:35:00 Test Item Value Reference Range Interpretation Comments WHITE BLOOD CELL COUNT (BEAKER) 7.0 K/ L 3.5-10.5 (test code = 775) RED BLOOD CELL COUNT (BEAKER) 3.60 M/ L 3.93-5.22 L (test code = 761) HEMOGLOBIN (BEAKER) (test code = 11.1 GM/DL 11.2-15.7 L 410) HEMATOCRIT (BEAKER) (test code = 36.6 % 34.1-44.9 411) MEAN CORPUSCULAR VOLUME (BEAKER) 101.7 fL 79.4-94.8 H (test code = 753) MEAN CORPUSCULAR HEMOGLOBIN 30.8 pg 25.6-32.2 (BEAKER) (test code = 751) MEAN CORPUSCULAR HEMOGLOBIN CONC 30.3 GM/DL 32.2-35.5 L (BEAKER) (test code = 752) RED CELL DISTRIBUTION WIDTH 16.3 % 11.7-14.4 H (BEAKER) (test code = 412) PLATELET COUNT (BEAKER) (test 248 K/CU MM 150-450 code = 756) MEAN PLATELET VOLUME (BEAKER) 9.2 fL 9.4-12.3 L (test code = 754) NUCLEATED RED BLOOD CELLS 0 /100 WBC 0-0 (BEAKER) (test code = 413) NEUTROPHILS RELATIVE PERCENT 45 % (BEAKER) (test code = 429) LYMPHOCYTES RELATIVE PERCENT 44 % (BEAKER) (test code = 430) MONOCYTES RELATIVE PERCENT 8 % (BEAKER) (test code = 431) EOSINOPHILS RELATIVE PERCENT 3 % (BEAKER) (test code = 432) BASOPHILS RELATIVE PERCENT 0 % (BEAKER) (test code = 437) NEUTROPHILS ABSOLUTE COUNT 3.11 K/ L 1.56-6.13 (BEAKER) (test code = 670) LYMPHOCYTES ABSOLUTE COUNT 3.08 K/ L 1.18-3.74 (BEAKER) (test code = 414) MONOCYTES ABSOLUTE COUNT (BEAKER) 0.53 K/ L 0.24-0.36 H (test code = 415) EOSINOPHILS ABSOLUTE COUNT 0.22 K/ L 0.04-0.36 (BEAKER) (test code = 416) BASOPHILS ABSOLUTE COUNT (BEAKER) 0.03 K/ L 0.01-0.08 (test code = 417) IMMATURE GRANULOCYTES-RELATIVE 0 % 0-1 PERCENT (BEAKER) (test code = 2801) POCT-GLUCOSE [id number] 21:40:00 Test Item Value Reference Range Interpretation Comments POC-GLUCOSE METER 133 mg/dL 70-[address] [facility] [address] ([facility]) (test code = MORENITA Schmidt [place] 1538) [address] LACTIC ACID, [id number] 19:18:00 Test Item Value Reference Range Interpretation Comments LACTATE BLOOD VENOUS (2) (BEAKER) 3.6 mmol/L 0.5-2.2 H (test code = 2872) POCT-GLUCOSE [id number] 18:17:00 Test Item Value Reference Range Interpretation Comments POC-GLUCOSE METER 95 mg/dL 70-[address] [facility] 6720 ([facility]) (test code = MORENITA Schmidt [facility] [address] 1538) LACTIC ACID, [id number] 15:26:00 Test Item Value Reference Range Interpretation Comments LACTATE BLOOD VENOUS 1.7 mmol/L 0.5-2.2 Specime n slightly (2) (BEAKER) (test hemolyzed code = 2872) [id number] 14:38:00 Test Item Value Reference Range Interpretation Comments PROCALCITONIN (BEAKER) (test code 0.05 ng/mL <0.05 H = 3036) SEPSIS RISK (ng/mL)Low: 0.05-0.50Intermediate: 0.51-2.00High: >=2.01U/S, [id number] 14:19:00Reason for exam:->CYSTITISFINAL REPORT INDICATION:Urinary tract infection [...] visualized.Patient is status post hysterectomy. Signed:Ra Smallwood [facility] Verified Date/Time: 02/27/2019 14:19:25 Reading Location: [address] Ultrasound Reading Room U/S, RENAL, [id number] 14:19:00Reason for exam:->CYSTITISFINAL REPORT INDICATION:Urinary tract infection [...] visualized.Patient is status post hysterectomy. Signed:Ra Smallwood MDReport Verified Date/Time: 02/27/2019 14:19:25 Reading Location: [address] Ultrasound Reading Room ALYSIS W/ REFLEX URINE [id number] 12:20:00 Test Item Value Reference Range Interpretation Comments COLOR (BEAKER) (test code = 470) Yellow CLARITY (BEAKER) (test code = Clear 469) SPECIFIC GRAVITY UA (BEAKER) 1.032 1.001-1.035 (test code = 468) PH UA (BEAKER) (test code = 467) 5.5 5.0-8.0 PROTEIN UA (BEAKER) (test code = Negative Negative 464) GLUCOSE UA (BEAKER) (test code = >1000 mg/dL Negative A 365) KETONES UA (BEAKER) (test code = Negative Negative 371) BILIRUBIN UA (BEAKER) (test code Negative Negative = 462) BLOOD UA (BEAKER) (test code = Negative Negative 461) NITRITE UA (BEAKER) (test code = Negative Negative 465) LEUKOCYTE ESTERASE UA (BEAKER) Negative Negative (test code = 466) UROBILINOGEN UA (BEAKER) (test 0.2 mg/dL 0.2-1.0 code = 463) RBC UA (BEAKER) (test code = 519) < /HPF WBC UA (BEAKER) (test code = 520) 1 /HPF SQUAMOUS EPITHELIAL (BEAKER) 7 /HPF (test code = 516) SOURCE(BEAKER) (test code = 2795) HEPATIC FUNCTION [id number] 12:11:00 Test Item Value Reference Range Interpretation Comments TOTAL PROTEIN (BEAKER) (test code = 7.4 gm/dL 6.0-8.3 770) ALBUMIN (BEAKER) (test code = 1145) 3.8 g/dL 3.5-5.0 BILIRUBIN TOTAL (BEAKER) (test code 0.4 mg/dL 0.2-1.2 = 377) BILIRUBIN DIRECT (BEAKER) (test 0.2 mg/dL 0.1-0.5 code = 706) ALKALINE PHOSPHATASE (BEAKER) (test 93 U/L 40-150 code = 346) AST (SGOT) (BEAKER) (test code = 44 U/L 5-34 H 353) ALT (SGPT) (BEAKER) (test code = 15 U/L 6-55 347) BASIC METABOLIC [id number] 12:11:00 Test Item Value Reference Range Interpretation Comments SODIUM (BEAKER) 140 meq/L 136-145 (test code = 381) POTASSIUM (BEAKER) 4.0 meq/L 3.5-5.1 (test code = 379) CHLORIDE (BEAKER) 104 meq/L 98-107 (test code = 382) CO2 (BEAKER) (test 27 meq/L 22-29 code = 355) BLOOD UREA NITROGEN 24 mg/dL 7-21 H (BEAKER) (test code = 354) CREATININE (BEAKER) 0.89 mg/dL 0.57-1.25 (test code = 358) GLUCOSE RANDOM 134 mg/dL 70-105 H (BEAKER) (test code = 652) CALCIUM (BEAKER) 8.5 mg/dL 8.4-10.2 (test code = 697) EGFR (BEAKER) (test 64 mL/min/1.73 ESTIMA ELVA GFR IS code = 1092) sq m NOT ACCURATE CREATININE CLEARANCE IN PREDICTING GLOMERULAR FILTRATION RATE . ESTIMATED GFR I S NOT APPLICABLE FOR DIALYSIS PATIEN TS. LACTIC ACID, [id number] 12:09:00 Test Item Value Reference Range Interpretation Comments LACTATE BLOOD VENOUS 2.3 mmol/L 0.5-2.2 H Specime n slightly (2) (BEAKER) (test hemolyzed code = 7994) KETONE, [id number] 11:53:00 Test Item Value Reference Range Interpretation Comments KETONES, BLOOD (BEAKER) (test code 0.1 mmol/L <0.4 = 1103) CBC W/PLT COUNT & AUTO [id number] 11:53:00 Test Item Value Reference Range Interpretation Comments WHITE BLOOD CELL COUNT (BEAKER) 8.5 K/ L 3.5-10.5 (test code = 775) RED BLOOD CELL COUNT (BEAKER) 3.95 M/ L 3.93-5.22 (test code = 761) HEMOGLOBIN (BEAKER) (test code = 12.2 GM/DL 11.2-15.7 410) HEMATOCRIT (BEAKER) (test code = 39.1 % 34.1-44.9 411) MEAN CORPUSCULAR VOLUME (BEAKER) 99.0 fL 79.4-94.8 H (test code = 753) MEAN CORPUSCULAR HEMOGLOBIN 30.9 pg 25.6-32.2 (BEAKER) (test code = 751) MEAN CORPUSCULAR HEMOGLOBIN CONC 31.2 GM/DL 32.2-35.5 L (BEAKER) (test code = 752) RED CELL DISTRIBUTION WIDTH 16.1 % 11.7-14.4 H (BEAKER) (test code = 412) PLATELET COUNT (BEAKER) (test 279 K/CU MM 150-450 code = 756) MEAN PLATELET VOLUME (BEAKER) 9.6 fL 9.4-12.3 (test code = 754) NUCLEATED RED BLOOD CELLS 0 /100 WBC 0-0 (BEAKER) (test code = 413) NEUTROPHILS RELATIVE PERCENT 57 % (BEAKER) (test code = 429) LYMPHOCYTES RELATIVE PERCENT 32 % (BEAKER) (test code = 430) MONOCYTES RELATIVE PERCENT 8 % (BEAKER) (test code = 431) EOSINOPHILS RELATIVE PERCENT 2 % (BEAKER) (test code = 432) BASOPHILS RELATIVE PERCENT 0 % (BEAKER) (test code = 437) NEUTROPHILS ABSOLUTE COUNT 4.87 K/ L 1.56-6.13 (BEAKER) (test code = 670) LYMPHOCYTES ABSOLUTE COUNT 2.73 K/ L 1.18-3.74 (BEAKER) (test code = 414) MONOCYTES ABSOLUTE COUNT (BEAKER) 0.70 K/ L 0.24-0.36 H (test code = 415) EOSINOPHILS ABSOLUTE COUNT 0.18 K/ L 0.04-0.36 (BEAKER) (test code = 416) BASOPHILS ABSOLUTE COUNT (BEAKER) 0.03 K/ L 0.01-0.08 (test code = 417) IMMATURE GRANULOCYTES-RELATIVE 0 % 0-1 PERCENT (BEAKER) (test code = 2801) WOUND CULTURE + GRAM [id number] 18:38:00 Test Item Value Reference Range Interpretation Comments CULTURE (BEAKER) (test code 1+ Skin batsheva = 1095) GRAM STAIN RESULT (BEAKER) No WBCs (test code = 1123) GRAM STAIN RESULT (BEAKER) No organisms seen (test code = 35882) AFB CULTURE + [id number] 14:57:00 Test Item Value Reference Range Interpretation Comments CULTURE (BEAKER) (test No acid-fast bacilli code = 1095) isolated in 42 days AFB SMEAR (BEAKER) No acid fast bacilli (test code = 994) seen SURGICALLY OBTAINED CULTURE + GRAM [id number] 10:13:00 Test Item Value Reference Range Interpretation Comments CULTURE (BEAKER) (test No growth code = 1095) GRAM STAIN RESULT <1+ White blood cells (BEAKER) (test code = seen 1123) GRAM STAIN RESULT No organisms seen (BEAKER) (test code = 14461) MM, U/S, BREAST, UNILATERAL, [id number] 16:18:00Reason for Exam:->[id number] #[id number] - MM, U/S, BREAST, UNILATERAL, LEFTULTRASOUND OF [...] of malignancy. Macie Diop M.D. pth/:12/08/2017 16:18:20 Bi Manager: Phuong Pugh Linen Checker, [facility] Ultrasound BI-RADS: 2 Benign [address] MM, DIGITAL MAMMO, DIAGNOSTIC, BILATERAL INCLUDING [id number] 16:16:00Reason for Exam:- >Encounter for screening mammogram for malugnant neoplasm of breastMRN#: [id number] - MM, DIGITAL MAMMO, DIAGNOSTIC, BILATERAL INCLUDING [...] is recommended. Macie Diop M.D. pth/:12/08/2017 16:16:27 Bi Manager: Ashely EMANUEL(Roxana)(M), [facility] Mammogram BI-RADS: 2 Benign [id number] BLOOD [id number] 05:01:00 Test Item Value Reference Range Interpretation Comments CULTURE (BEAKER) (test No growth in 5 days code = 1095) BLOOD [id number] 23:00:00 Test Item Value Reference Range Interpretation Comments CULTURE (BEAKER) (test No growth in 5 days code = 1095) POCT-GLUCOSE [id number] 07:45:00 Test Item Value Reference Range Interpretation Comments POC-GLUCOSE METER 125 mg/dL 70-[address] [facility] 6720 ([place]) (test code = MORENITA Schmidt [place] 1538) [id number] CALCIUM, [id number] 06:18:00 Test Item Value Reference Range Interpretation Comments CALCIUM IONIZED (BEAKER) (test 1.10 mmol/L 1.12-1.27 L code = 698) PH, BLOOD (BEAKER) (test code = 7.36 1810) [id number] 06:10:00 Test Item Value Reference Range Interpretation Comments PHOSPHORUS (BEAKER) (test code = 4.3 mg/dL 2.3-4.7 604) [id number] 06:10:00 Test Item Value Reference Range Interpretation Comments MAGNESIUM (BEAKER) (test code = 1.7 mg/dL 1.6-2.6 627) BASIC METABOLIC [id number] 06:10:00 Test Item Value Reference Range Interpretation Comments SODIUM (BEAKER) 135 meq/L 136-145 L (test code = 381) POTASSIUM (BEAKER) 3.9 meq/L 3.5-5.1 (test code = 379) CHLORIDE (BEAKER) 97 meq/L 98-107 L (test code = 382) CO2 (BEAKER) (test 27 meq/L 22-29 code = 355) BLOOD UREA NITROGEN 20 mg/dL 7-21 (BEAKER) (test code = 354) CREATININE (BEAKER) 0.84 mg/dL 0.57-1.25 (test code = 358) GLUCOSE RANDOM 117 mg/dL 70-105 H (BEAKER) (test code = 652) CALCIUM (BEAKER) 8.7 mg/dL 8.4-10.2 (test code = 697) EGFR (BEAKER) (test 68 mL/min/1.73 ESTIMA ELVA GFR IS code = 1092) sq m NOT ACCURATE CREATININE CLEARANCE IN PREDICTING GLOMERULAR FILTRATION RATE . ESTIMATED GFR I S NOT APPLICABLE FOR DIALYSIS PATIEN TS. CBC W/PLT COUNT & AUTO [id number] 05:28:00 Test Item Value Reference Range Interpretation Comments WHITE BLOOD CELL COUNT (BEAKER) 7.1 K/ L 3.5-10.5 (test code = 775) RED BLOOD CELL COUNT (BEAKER) 3.75 M/ L 3.93-5.22 L (test code = 761) HEMOGLOBIN (BEAKER) (test code = 11.6 GM/DL 11.2-15.7 410) HEMATOCRIT (BEAKER) (test code = 37.0 % 34.1-44.9 411) MEAN CORPUSCULAR VOLUME (BEAKER) 98.7 fL 79.4-94.8 H (test code = 753) MEAN CORPUSCULAR HEMOGLOBIN 30.9 pg 25.6-32.2 (BEAKER) (test code = 751) MEAN CORPUSCULAR HEMOGLOBIN CONC 31.4 GM/DL 32.2-35.5 L (BEAKER) (test code = 752) RED CELL DISTRIBUTION WIDTH 14.5 % 11.7-14.4 H (BEAKER) (test code = 412) PLATELET COUNT (BEAKER) (test 256 K/CU MM 150-450 code = 756) MEAN PLATELET VOLUME (BEAKER) 9.2 fL 9.4-12.3 L (test code = 754) NUCLEATED RED BLOOD CELLS 0 /100 WBC 0-0 (BEAKER) (test code = 413) NEUTROPHILS RELATIVE PERCENT 49 % (BEAKER) (test code = 429) LYMPHOCYTES RELATIVE PERCENT 39 % (BEAKER) (test code = 430) MONOCYTES RELATIVE PERCENT 9 % (BEAKER) (test code = 431) EOSINOPHILS RELATIVE PERCENT 2 % (BEAKER) (test code = 432) BASOPHILS RELATIVE PERCENT 0 % (BEAKER) (test code = 437) NEUTROPHILS ABSOLUTE COUNT 3.46 K/ L 1.56-6.13 (BEAKER) (test code = 670) LYMPHOCYTES ABSOLUTE COUNT 2.78 K/ L 1.18-3.74 (BEAKER) (test code = 414) MONOCYTES ABSOLUTE COUNT (BEAKER) 0.62 K/ L 0.24-0.36 H (test code = 415) EOSINOPHILS ABSOLUTE COUNT 0.14 K/ L 0.04-0.36 (BEAKER) (test code = 416) BASOPHILS ABSOLUTE COUNT (BEAKER) 0.03 K/ L 0.01-0.08 (test code = 417) IMMATURE GRANULOCYTES-RELATIVE 0 % 0-1 PERCENT (BEAKER) (test code = 2806) POCT-GLUCOSE [id number] 21:40:00 Test Item Value Reference Range Interpretation Comments POC-GLUCOSE METER 138 mg/dL 70-110 H TESTED AT [place] [address] (BEAKER) (test code = MORENITA RAM 1538) [address] POCT-GLUCOSE [id number] 18:56:00 Test Item Value Reference Range Interpretation Comments POC-GLUCOSE METER 98 mg/dL 70-110 TESTED AT [place] [address] ([facility]) (test code = MORENITA Schmidt [facility] [address] 1538) POCT-GLUCOSE [id number] 14:49:00 Test Item Value Reference Range Interpretation Comments POC-GLUCOSE METER 92 mg/dL 70-110 TESTED AT [place] [address] ([facility]) (test code = MORENITA Schmidt [facility] [address] 1538) VANCOMYCIN LEVEL, [id number] 11:12:00 Test Item Value Reference Range Interpretation Comments VANCOMYCIN TROUGH ([facility]) (test 16.1 ug/mL 10.0-20.0 code = 522) POCT-GLUCOSE [id number] 09:35:00 Test Item Value Reference Range Interpretation Comments POC-GLUCOSE METER 123 mg/dL 70-110 H TESTED AT [place] [address] ([facility]) (test code = MORENITA Schmidt [facility] 1538) [address] CBC W/PLT COUNT & AUTO [id number] 09:02:00 Test Item Value Reference Range Interpretation Comments WHITE BLOOD CELL COUNT (BEAKER) 6.2 K/ L 3.5-10.5 (test code = 775) RED BLOOD CELL COUNT (BEAKER) 3.72 M/ L 3.93-5.22 L (test code = 761) HEMOGLOBIN (BEAKER) (test code = 11.5 GM/DL 11.2-15.7 410) HEMATOCRIT (BEAKER) (test code = 36.5 % 34.1-44.9 411) MEAN CORPUSCULAR VOLUME (AKER) 98.1 fL 79.4-94.8 H (test code = 753) MEAN CORPUSCULAR HEMOGLOBIN 30.9 pg 25.6-32.2 (BEAKER) (test code = 751) MEAN CORPUSCULAR HEMOGLOBIN CONC 31.5 GM/DL 32.2-35.5 L (BEAKER) (test code = 752) RED CELL DISTRIBUTION WIDTH 14.4 % 11.7-14.4 (BEAKER) (test code = 412) PLATELET COUNT (BEAKER) (test 268 K/CU MM 150-450 code = 756) MEAN PLATELET VOLUME (BEAKER) 9.1 fL 9.4-12.3 L (test code = 754) NUCLEATED RED BLOOD CELLS 0 /100 WBC 0-0 (BEAKER) (test code = 413) NEUTROPHILS RELATIVE PERCENT 44 % (BEAKER) (test code = 429) LYMPHOCYTES RELATIVE PERCENT 44 % (BEAKER) (test code = 430) MONOCYTES RELATIVE PERCENT 9 % (BEAKER) (test code = 431) EOSINOPHILS RELATIVE PERCENT 2 % (BEAKER) (test code = 432) BASOPHILS RELATIVE PERCENT 0 % (BEAKER) (test code = 437) NEUTROPHILS ABSOLUTE COUNT 2.70 K/ L 1.56-6.13 (BEAKER) (test code = 670) LYMPHOCYTES ABSOLUTE COUNT 2.70 K/ L 1.18-3.74 (BEAKER) (test code = 414) MONOCYTES ABSOLUTE COUNT (BEAKER) 0.58 K/ L 0.24-0.36 H (test code = 415) EOSINOPHILS ABSOLUTE COUNT 0.15 K/ L 0.04-0.36 (BEAKER) (test code = 416) BASOPHILS ABSOLUTE COUNT (BEAKER) 0.02 K/ L 0.01-0.08 (test code = 417) IMMATURE GRANULOCYTES-RELATIVE 0 % 0-1 PERCENT (BEAKER) (test code = 2801) VITAMIN D, [id number] 07:00:00 Test Item Value Reference Range Interpretation Comments VITAMIN D 25-OH (BEAKER) (test 22.5 ng/mL 6.6-49.9 code = 2764) Effective 07/27/2017: Reference Range ChangeNew: 6.6-49.9 ng/mL Previous: 13.0-47.8 ng/mLRecommended Vitamin D Target Range: 30.0-40.0 ng/mLPHOSPHORUS 2017-12-02 06:39:00 Test Item Value Reference Range Interpretation Comments PHOSPHORUS (BEAKER) (test code = 4.6 mg/dL 2.3-4.7 604) [id number] 06:39:00 Test Item Value Reference Range Interpretation Comments MAGNESIUM (BEAKER) (test code = 1.7 mg/dL 1.6-2.6 627) BASIC METABOLIC [id number] 06:39:00 Test Item Value Reference Range Interpretation Comments SODIUM (BEAKER) 139 meq/L 136-145 (test code = 381) POTASSIUM (BEAKER) 4.2 meq/L 3.5-5.1 (test code = 379) CHLORIDE (BEAKER) 102 meq/L 98-107 (test code = 382) CO2 (BEAKER) (test 26 meq/L 22-29 code = 355) BLOOD UREA NITROGEN 16 mg/dL 7-21 (BEAKER) (test code = 354) CREATININE (BEAKER) 0.75 mg/dL 0.57-1.25 (test code = 358) GLUCOSE RANDOM 106 mg/dL 70-105 H ([facility]) (test code = 652) CALCIUM (BEAKER) 9.3 mg/dL 8.4-10.2 (test code = 697) EGFR (BEAKER) (test 78 mL/min/1.73 ESTIMA ELVA GFR IS code = 1092) sq m NOT ACCURATE CREATININE CLEARANCE IN PREDICTING GLOMERULAR FILTRATION RATE . ESTIMATED GFR I S NOT APPLICABLE FOR DIALYSIS PATIEN TS. CALCIUM, [id number] 06:30:00 Test Item Value Reference Range Interpretation Comments CALCIUM IONIZED ([facility]) (test 0.87 mmol/L 1.12-1.27 L code = 698) PH, BLOOD ([facility]) (test code = 7.37 1810) POCT-GLUCOSE [id number] 20:32:00 Test Item Value Reference Range Interpretation Comments POC-GLUCOSE METER 173 mg/dL 70-110 H TESTED AT [place] [address] ([facility]) (test code = MORENITA [place] 1538) [address] POCT-GLUCOSE [id number] 18:41:00 Test Item Value Reference Range Interpretation Comments POC-GLUCOSE METER 121 mg/dL 70-110 H TESTED AT [place] [address] ([facility]) (test code = MORENITA Schmidt [place] 1538) [address] HEMOGLOBIN [id number] 14:36:00 Test Item Value Reference Range Interpretation Comments HEMOGLOBIN A1C ([facility]) (test code = 6.6 % 4.3-6.1 H 368) POCT-GLUCOSE [id number] 12:36:00 Test Item Value Reference Range Interpretation Comments POC-GLUCOSE METER 139 mg/dL 70-110 H TESTED AT [place] [address] ([facility]) (test code = MORENITA Schmidt [place] 1538) [id number] POCT-GLUCOSE [id number] 08:34:00 Test Item Value Reference Range Interpretation Comments POC-GLUCOSE METER 125 mg/dL 70-110 H TESTED AT [place] [address] (BEAKER) (test code = MORENITA [place] 1538) [address] CBC W/PLT COUNT & AUTO [id number] 07:16:00 Test Item Value Reference Range Interpretation Comments WHITE BLOOD CELL COUNT (BEAKER) 7.6 K/ L 3.5-10.5 (test code = 775) RED BLOOD CELL COUNT (BEAKER) 3.58 M/ L 3.93-5.22 L (test code = 761) HEMOGLOBIN (BEAKER) (test code = 11.2 GM/DL 11.2-15.7 410) HEMATOCRIT (BEAKER) (test code = 35.6 % 34.1-44.9 411) MEAN CORPUSCULAR VOLUME (BEAKER) 99.4 fL 79.4-94.8 H (test code = 753) MEAN CORPUSCULAR HEMOGLOBIN 31.3 pg 25.6-32.2 (BEAKER) (test code = 751) MEAN CORPUSCULAR HEMOGLOBIN CONC 31.5 GM/DL 32.2-35.5 L (BEAKER) (test code = 752) RED CELL DISTRIBUTION WIDTH 14.5 % 11.7-14.4 H (BEAKER) (test code = 412) PLATELET COUNT (BEAKER) (test 274 K/CU MM 150-450 code = 756) MEAN PLATELET VOLUME (BEAKER) 9.1 fL 9.4-12.3 L (test code = 754) NUCLEATED RED BLOOD CELLS 0 /100 WBC 0-0 (BEAKER) (test code = 413) NEUTROPHILS RELATIVE PERCENT 44 % (BEAKER) (test code = 429) LYMPHOCYTES RELATIVE PERCENT 43 % (BEAKER) (test code = 430) MONOCYTES RELATIVE PERCENT 10 % (BEAKER) (test code = 431) EOSINOPHILS RELATIVE PERCENT 2 % (BEAKER) (test code = 432) BASOPHILS RELATIVE PERCENT 0 % (BEAKER) (test code = 437) NEUTROPHILS ABSOLUTE COUNT 3.29 K/ L 1.56-6.13 (BEAKER) (test code = 670) LYMPHOCYTES ABSOLUTE COUNT 3.26 K/ L 1.18-3.74 (BEAKER) (test code = 414) MONOCYTES ABSOLUTE COUNT (BEAKER) 0.75 K/ L 0.24-0.36 H (test code = 415) EOSINOPHILS ABSOLUTE COUNT 0.18 K/ L 0.04-0.36 (BEAKER) (test code = 416) BASOPHILS ABSOLUTE COUNT (BEAKER) 0.03 K/ L 0.01-0.08 (test code = 417) IMMATURE GRANULOCYTES-RELATIVE 1 % 0-1 PERCENT (BEAKER) (test code = 2801) (MANUAL DIFFERENTIAL)2017-12-01 07:16:00 Test Item Value Reference Range Interpretation Comments TOTAL COUNTED (BEAKER) (test code = 1351) TSH/FREE T4 IF [id number] 06:48:00 Test Item Value Reference Range Interpretation Comments THYROID STIMULATING HORMONE 4.13 uIU/mL 0.35-4.94 (BEAKER) (test code = 772) [id number] 06:25:00 Test Item Value Reference Range Interpretation Comments PHOSPHORUS (BEAKER) (test code = 3.9 mg/dL 2.3-4.7 604) [id number] 06:25:00 Test Item Value Reference Range Interpretation Comments MAGNESIUM (BEAKER) (test code = 1.8 mg/dL 1.6-2.6 627) BASIC METABOLIC [id number] 06:25:00 Test Item Value Reference Range Interpretation Comments SODIUM (BEAKER) 138 meq/L 136-145 (test code = 381) POTASSIUM (BEAKER) 4.0 meq/L 3.5-5.1 (test code = 379) CHLORIDE (BEAKER) 102 meq/L 98-107 (test code = 382) CO2 (BEAKER) (test 25 meq/L 22-29 code = 355) BLOOD UREA NITROGEN 15 mg/dL 7-21 (BEAKER) (test code = 354) CREATININE (BEAKER) 0.82 mg/dL 0.57-1.25 (test code = 358) GLUCOSE RANDOM 100 mg/dL 70-105 (BEAKER) (test code = 652) CALCIUM (BEAKER) 9.0 mg/dL 8.4-10.2 (test code = 697) EGFR (BEAKER) (test 70 mL/min/1.73 ESTIMA ELVA GFR IS code = 1092) sq m NOT ACCURATE CREATININE CLEARANCE IN PREDICTING GLOMERULAR FILTRATION RATE . ESTIMATED GFR I S NOT APPLICABLE FOR DIALYSIS PATIEN TS. LIPID [id number] 06:25:00 Test Item Value Reference Range Interpretation Comments TRIGLYCERIDES (BEAKER) (test code = 357 mg/dL 540) CHOLESTEROL (BEAKER) (test code = 161 mg/dL 631) HDL CHOLESTEROL (BEAKER) (test code 44 mg/dL = 976) LDL CHOLESTEROL CALCULATED (BEAKER) 46 mg/dL (test code = 633) Triglyceride Reference Range: Low Risk <150 Borderline 150-199 High Risk 200-499 Very High Risk >=500Cholesterol Reference Range: Low Risk <200 Borderline 200-239 High Risk >240HDL Cholesterol Reference Range: Low Risk >=60 High Risk <40LDL Cholesterol Reference Range: Optimal <100 Near Optimal 100-129 Borderline 130-159 High 160-189 Very High >=190CALCIUM, [id number] 06:02:00 Test Item Value Reference Range Interpretation Comments CALCIUM IONIZED (BEAKER) (test 0.84 mmol/L 1.12-1.27 L code = 698) PH, BLOOD (BEAKER) (test code = 7.40 1810) POCT-GLUCOSE [id number] 23:04:00 Test Item Value Reference Range Interpretation Comments POC-GLUCOSE METER 92 mg/dL 70-[address] [facility] 67[address] (BEAKER) (test code = [facility] [address]) BASIC METABOLIC [id number] 16:03:00 Test Item Value Reference Range Interpretation Comments SODIUM (BEAKER) 137 meq/L 136-145 (test code = 381) POTASSIUM (BEAKER) 4.1 meq/L 3.5-5.1 (test code = 379) CHLORIDE (BEAKER) 104 meq/L 98-107 (test code = 382) CO2 (BEAKER) (test 21 meq/L 22-29 L code = 355) BLOOD UREA NITROGEN 14 mg/dL 7-21 (BEAKER) (test code = 354) CREATININE (BEAKER) 0.85 mg/dL 0.57-1.25 (test code = 358) GLUCOSE RANDOM 103 mg/dL 70-105 (BEAKER) (test code = 652) CALCIUM (BEAKER) 9.0 mg/dL 8.4-10.2 (test code = 697) EGFR (BEAKER) (test 68 mL/min/1.73 ESTIMA ELVA GFR IS code = 1092) sq m NOT ACCURATE CREATININE CLEARANCE IN PREDICTING GLOMERULAR FILTRATION RATE . ESTIMATED GFR I S NOT APPLICABLE FOR DIALYSIS PATIEN TS. CBC W/PLT COUNT & AUTO [id number] 15:58:00 Test Item Value Reference Range Interpretation Comments WHITE BLOOD CELL COUNT (BEAKER) 7.2 K/ L 3.5-10.5 (test code = 775) RED BLOOD CELL COUNT (BEAKER) 3.79 M/ L 3.93-5.22 L (test code = 761) HEMOGLOBIN (BEAKER) (test code = 12.0 GM/DL 11.2-15.7 410) HEMATOCRIT (BEAKER) (test code = 37.8 % 34.1-44.9 411) MEAN CORPUSCULAR VOLUME (BEAKER) 99.7 fL 79.4-94.8 H (test code = 753) MEAN CORPUSCULAR HEMOGLOBIN 31.7 pg 25.6-32.2 (BEAKER) (test code = 751) MEAN CORPUSCULAR HEMOGLOBIN CONC 31.7 GM/DL 32.2-35.5 L (BEAKER) (test code = 752) RED CELL DISTRIBUTION WIDTH 14.5 % 11.7-14.4 H (BEAKER) (test code = 412) PLATELET COUNT (BEAKER) (test 296 K/CU MM 150-450 code = 756) MEAN PLATELET VOLUME (BEAKER) 9.0 fL 9.4-12.3 L (test code = 754) NUCLEATED RED BLOOD CELLS 0 /100 WBC 0-0 (BEAKER) (test code = 413) NEUTROPHILS RELATIVE PERCENT 47 % (BEAKER) (test code = 429) LYMPHOCYTES RELATIVE PERCENT 42 % (BEAKER) (test code = 430) MONOCYTES RELATIVE PERCENT 8 % (BEAKER) (test code = 431) EOSINOPHILS RELATIVE PERCENT 2 % (BEAKER) (test code = 432) BASOPHILS RELATIVE PERCENT 0 % (BEAKER) (test code = 437) NEUTROPHILS ABSOLUTE COUNT 3.41 K/ L 1.56-6.13 (BEAKER) (test code = 670) LYMPHOCYTES ABSOLUTE COUNT 3.01 K/ L 1.18-3.74 (BEAKER) (test code = 414) MONOCYTES ABSOLUTE COUNT (BEAKER) 0.58 K/ L 0.24-0.36 H (test code = 415) EOSINOPHILS ABSOLUTE COUNT 0.17 K/ L 0.04-0.36 (BEAKER) (test code = 416) BASOPHILS ABSOLUTE COUNT (BEAKER) 0.03 K/ L 0.01-0.08 (test code = 417) IMMATURE GRANULOCYTES-RELATIVE 0 % 0-1 PERCENT (BEAKER) (test code = 2801) RAD, CHEST, 2 [id number] 15:19:00Reason for exam:->cpShould this be performed at the bedside?->NoFINAL REPORT Chest two views compared to November 14, 2017 Discussion: Lungs clear. Heart size normal. No effusion or pneumothorax. There are right shoulder degenerative changes. W idened left AC joint may reflect previous surgery or trauma. Signed: Eryn [place] Verified Date/Time: 11/30/2017 15:19:59 Reading Location: [facility] [id number] Consult Reading Room SINUS CULTURE + GRAM [id number] 08:42:00 Test Item Value Reference Interpretation Comments Range CULTURE (BEAKER) (test code = 1095) Clindamycin (test code S = 10) Erythromycin (test R code = 4) Linezolid (test code = S 40) Nitrofurantoin (test S code = 23) Oxacillin (test code = R 14) Rifampin (test code = S 43) Tetracycline (test S code = 2) Trimethoprim + S Sulfamethoxazole (test code = 47) Vancomycin (test code S = 13) CULTURE (BEAKER) (test A 1+ Me thicillin code = 1095) resistant Staphylococcus aureus GRAM STAIN RESULT <1+ WBCs (BEAKER) (test code = 1123) GRAM STAIN RESULT No organisms (BEAKER) (test code = seen 238543) No Normal respiratory batsheva presentHEPATIC FUNCTION [id number] 14:45:00 Test Item Value Reference Range Interpretation Comments TOTAL PROTEIN (BEAKER) (test code = 7.1 gm/dL 6.0-8.3 770) ALBUMIN (BEAKER) (test code = 1145) 3.7 g/dL 3.5-5.0 BILIRUBIN TOTAL (BEAKER) (test code 0.3 mg/dL 0.2-1.2 = 377) BILIRUBIN DIRECT (BEAKER) (test 0.1 mg/dL 0.1-0.5 code = 706) ALKALINE PHOSPHATASE (BEAKER) (test 109 U/L 40-150 code = 346) AST (SGOT) (BEAKER) (test code = 18 U/L 5-34 353) ALT (SGPT) (BEAKER) (test code = 9 U/L 6-55 347) BASIC METABOLIC [id number] 14:45:00 Test Item Value Reference Range Interpretation Comments SODIUM (BEAKER) 137 meq/L 136-145 (test code = 381) POTASSIUM (BEAKER) 3.8 meq/L 3.5-5.1 (test code = 379) CHLORIDE (BEAKER) 101 meq/L 98-107 (test code = 382) CO2 (BEAKER) (test 25 meq/L 22-29 code = 355) BLOOD UREA NITROGEN 16 mg/dL 7-21 (BEAKER) (test code = 354) CREATININE (BEAKER) 0.73 mg/dL 0.57-1.25 (test code = 358) GLUCOSE RANDOM 89 mg/dL 70-105 (BEAKER) (test code = 652) CALCIUM (BEAKER) 8.7 mg/dL 8.4-10.2 (test code = 697) EGFR (BEAKER) (test 81 mL/min/1.73 ESTIMA ELVA GFR IS code = 1092) sq m NOT ACCURATE CREATININE CLEARANCE IN PREDICTING GLOMERULAR FILTRATION RATE . ESTIMATED GFR I S NOT APPLICABLE FOR DIALYSIS PATIEN TS. CBC W/PLT COUNT & AUTO [id number] 14:12:00 Test Item Value Reference Range Interpretation Comments WHITE BLOOD CELL COUNT (BEAKER) 7.8 K/ L 3.5-10.5 (test code = 775) RED BLOOD CELL COUNT (BEAKER) 3.73 M/ L 3.93-5.22 L (test code = 761) HEMOGLOBIN (BEAKER) (test code = 11.7 GM/DL 11.2-15.7 410) HEMATOCRIT (BEAKER) (test code = 36.4 % 34.1-44.9 411) MEAN CORPUSCULAR VOLUME (BEAKER) 97.6 fL 79.4-94.8 H (test code = 753) MEAN CORPUSCULAR HEMOGLOBIN 31.4 pg 25.6-32.2 (BEAKER) (test code = 751) MEAN CORPUSCULAR HEMOGLOBIN CONC 32.1 GM/DL 32.2-35.5 L (BEAKER) (test code = 752) RED CELL DISTRIBUTION WIDTH 14.3 % 11.7-14.4 (BEAKER) (test code = 412) PLATELET COUNT (BEAKER) (test 291 K/CU MM 150-450 code = 756) MEAN PLATELET VOLUME (BEAKER) 9.3 fL 9.4-12.3 L (test code = 754) NUCLEATED RED BLOOD CELLS 0 /100 WBC 0-0 (BEAKER) (test code = 413) NEUTROPHILS RELATIVE PERCENT 48 % (BEAKER) (test code = 429) LYMPHOCYTES RELATIVE PERCENT 40 % (BEAKER) (test code = 430) MONOCYTES RELATIVE PERCENT 8 % (BEAKER) (test code = 431) EOSINOPHILS RELATIVE PERCENT 3 % (BEAKER) (test code = 432) BASOPHILS RELATIVE PERCENT 0 % (BEAKER) (test code = 437) NEUTROPHILS ABSOLUTE COUNT 3.72 K/ L 1.56-6.13 (BEAKER) (test code = 670) LYMPHOCYTES ABSOLUTE COUNT 3.13 K/ L 1.18-3.74 (BEAKER) (test code = 414) MONOCYTES ABSOLUTE COUNT (BEAKER) 0.64 K/ L 0.24-0.36 H (test code = 415) EOSINOPHILS ABSOLUTE COUNT 0.20 K/ L 0.04-0.36 (BEAKER) (test code = 416) BASOPHILS ABSOLUTE COUNT (BEAKER) 0.03 K/ L 0.01-0.08 (test code = 417) IMMATURE GRANULOCYTES-RELATIVE 0 % 0-1 PERCENT (BEAKER) (test code = 2801) RAD, CHEST, 2 [id number] 13:06:00Reason for Exam:->[id number] REPORT HISTORY : R05. Comparison: None Comment: [...] MDReport Verified Date/Time: 11/14/2017 13:06:08 Reading Location: [address] Radiology Reading Room CT ABDOMEN AND PELVIS W/WOCLINICAL INDICATION: R50.9 Fever, unspecifiedMODALITY: [employer] [address] (Iterative [...]
[2020-05-04 19:46] LABS: Absolute Lymphocytes (CBC) 2.5 K/uL (0.7-4.9); Basophils % 0.8 % (0-1.3); Hematocrit 45.9 % (36.0-45.0); MPV 8.7 fL (7.6-11.3)
[2020-05-04 19:51] LABS: Protime INR 1.07
--- NOTE | 2020-05-04 20:01 | RAD REPORT ---
EXAM DESCRIPTION: RAD - Chest Single View - 05/04/2020 7:50 pm CLINICAL HISTORY: general weakness Chest pain. COMPARISON: Chest Pa And Lat (2 Views) dated 03/23/2019; CHEST SINGLE VIEW dated 12/10/2009Chest Single View dated 01/30/2020; Chest Pa And Lat (2 Views) dated 09/25/2018; Chest Single View dated 02/21/2018; Chest Single View dated 01/05/2018 FINDINGS: Portable technique limits examination quality. Interstitial lung markings are mildly prominent bilaterally. This may indicate interstitial pneumonit is or interstitial pulmonary edema. The heart is mildly prominent in size. IMPRESSION: Mild CHF suspected.
--- NOTE | 2020-05-04 20:06 | RAD REPORT ---
EXAM DESCRIPTION: CT - CTHCSPWOC - 05/04/2020 7:53 pm CLINICAL HISTORY: Trauma, head and neck injury. WEAKNESS COMPARISON: Neck Angio dated 01/30/2020; CT HEAD CSPINE MPR WO CONTRAST dated 01/04/2016; CT-ORBIT-W d ated 09/17/2013; [id number] dated 02/12/2011 TECHNIQUE: Axial 5 mm thick images of the head were obtained. Axial 2 mm thick images of the cervical spine were obtained with sagittal and coronal reconstruction images generated and reviewed. All CT scans are performed using dose optimization technique as appropriate and may include automated exposure control or mA/KV adjustment according to patient size. FINDINGS: CT HEAD WITHOUT CONTRAST: No acute hemorrhage, hydrocephalus or extra-axial collection is identified.No areas of brain edema or midline shift. The paranasal sinuses and mastoids are clear.The calvarium is intact. CT CERVICAL SPINE WITHOUT CONTRAST: No fracture or subluxation.Multilevel degenerative changes present in mid and lower cervical spine. A nterior fusion hardware is present spanning C5-6.No prevertebral soft tissues swelling is identified. IMPRESSION: No acute intracranial or cervical spine findings.
[2020-05-04] MEDS ORDERED: ACETAMINOPHEN 325 MG TABLET ONE (20:52)
[2020-05-04 21:11] LABS: Albumin 3.8 g/dL (3.4-5.0); Bilirubin Direct 0.2 mg/dL (0-0.2); Bilirubin Total 0.5 mg/dL (0.2-1.0); Potassium 3.6 mmol/L (3.5-5.1); Protein, Total 8.2 g/dL (6.4-8.2)
[2020-05-04 21:12] LABS: Magnesium 2.5 mg/dL (1.8-2.4)
[2020-05-04 21:15] LABS: Platelet Estimate ADEQ; White Blood Cell Scan OK
[2020-05-04 21:15] LABS: Troponin (Emerg Dept Use Only) 1.2 ng/mL (0.0-0.045)
[2020-05-04 21:16] LABS: Blood Morphology Comment NOT SEEN (NOT SEEN)
[2020-05-04] MEDS ORDERED: ASPIRIN 81 MG CHEWABLE TABLET ONE (21:34)
[2020-05-04 22:17] LABS: Urine Blood 2+ (NEG); Urine Glucose 2+ (NEG); Urine Protein NEGATIVE (NEG); Urine Specific Gravity 1.015 (1.005-1.030)
--- NOTE | 2020-05-04 22:24 | EDPHYS ---
Physician Documentation [facility] Name: Lara Liu Age: 64 yrs Sex: Female : 1955 Arrival Date: 05/04/2020 Time: 19:10 Bed 16 Private MD: ED Physician Reji Romero HPI: 05/04 19:13 This 64 yrs old Female presents to ER via EMS with complaints of General cp Weakness. 19:15 The patient presents with decreased mental status, found unresponsive next to car, cp unknown downtime. Onset: The symptoms/episode began/occurred just prior to arrival. Possible causes: unknown. Associated signs and symptoms: Pertinent positives: confusion, Pertinent negatives: abdominal pain, chest pain, combativeness. Current symptoms: In the emergency department the patient's symptoms have improved, mildly, is more alert. Patient's baseline: Neuro: alert but confused, Motor: bilateral lower extremity weakness, Ambulation: walks without assistance, Speech: normal. Historical: - Allergies: 19:13 No Known Drug Allergies; ll1 - PMHx: 19:13 Diabetes - NIDDM; Hyperlipidemia; Hypothyroidism; Hypertension; CHF; Sleep Apnea; ll1 - Immunization history:: Adult Immunizations up to date. - Social history:: Smoking status: Patient denies any tobacco usage or history of. Patient/guardian denies using alcohol, street drugs. ROS: 19:20 Constitutional: Negative for fever. cp 19:20 Neck: Negative for stiffness. 19:20 Cardiovascular: Negative for chest pain. 19:20 Abdomen/GI: Negative for abdominal pain, vomiting, diarrhea, black/tarry stool, rectal bleeding. 19:20 Back: Negative for pain at rest, pain with movement. 19:20 MS/extremity: Negative for decreased range of motion, deformity. 19:20 Skin: Positive for abrasion(s), of the right leg and left leg. 19:20 Neuro: Positive for altered mental status, loss of consciousness, weakness. 19:20 All other systems are negative. Exam: 19:25 Constitutional: The patient appears in no acute distress, alert, awake, cp non-diaphoretic, non-toxic, well developed, well nourished, obese. 19:25 Head/Face: Normocephalic, atraumatic. cp 19:25 Eyes: Periorbital structures: appear normal, Pupils: equal, round, and reactive to light and accomodation, Extraocular movements: intact throughout, Conjunctiva: normal, no exudate, no injection, Sclera: no appreciated abnormality, Lids and lashes: appear normal, bilaterally. 19:25 ENT: External ear(s): are unremarkable, Ear canal(s): are normal, clear, TM's: dullness, bilaterally, Nose: is normal, Mouth: Lips: dry, Oral mucosa: moist, Posterior pharynx: Airway: no evidence of obstruction, patent. 19:25 Neck: C-spine: vertebral tenderness, is not appreciated, crepitus, is not appreciated. 19:25 Chest/axilla: Inspection: normal, Palpation: is normal, no crepitus, no tenderness. 19:25 Cardiovascular: Rate: tachycardic, Rhythm: regular, Pulses: Pulses are 2+ in right radial artery and left radial artery. Edema: is not appreciated, JVD: is not appreciated. 19:25 Respiratory: the patient does not display signs of respiratory distress, Respirations: normal, no use of accessory muscles, no retractions, labored breathing, is not present, Breath sounds: are clear throughout, no decreased breath sounds, no stridor, no wheezing. 19:25 Abdomen/GI: Inspection: obese Bowel sounds: active, all quadrants, Palpation: abdomen is soft and non-tender, in all quadrants, voluntary guarding, is not appreciated, involuntary guarding, is not appreciated. 19:25 Back: pain, is absent, ROM is normal. 19:25 Musculoskeletal/extremity: Exam is negative for deformity. 19:25 Skin: injury, abrasion(s), of the right arm, left arm, right leg and left leg, no rash present. 19:25 Neuro: Orientation: to person, place, situation, Mentation: slow to respond, confused, Cerebellar function: normal finger to nose testing, Motor: moves all fours, strength is 5/5 in the right arm and left arm, mild weakness noted bilateral lower extremities, Sensation: no obvious gross deficits. 19:39 ECG was reviewed by the Attending Physician. cp Vital Signs: 19:10 BP 136 / 85; Pulse 129; Resp 18; Temp 98.8; Pulse Ox 91% on R/A; Pain 0/10; ll1 20:00 BP 125 / 80; Pulse 107; Resp 20; Pulse Ox 96% on 1.5 lpm NC; jb4 21:30 BP 137 / 103; Pulse 95; Resp 20; Pulse Ox 95% on R/A; jb4 22:30 BP 106 / 74; Pulse 92; Resp 16; Pulse Ox 94% on R/A; jb4 22:40 Weight 122.47 kg (R); Height 5 ft. 4 in. (162.56 cm) (R); jb4 22:40 Body Mass Index 46.34 (122.47 kg, 162.56 cm) jb4 MDM: 19:18 Patient medically screened. cp 22:00 Data reviewed: vital signs, nurses notes, lab test result(s), EKG, radiologic studies, cp CT scan, plain films, I have discussed the patient's presentation/case with the attending Emergency Department Physician;. 22:00 Test interpretation: by ED physician or midlevel provider: ECG. 22:05 Physician consultation: Suze Viramontes MD was contacted at 22:05, regarding admission, cp to the telemetry unit. patient's condition, would like consultation with Dr. Sanchez. 22:21 Physician consultation: Jj Sanchez MD was called at 22:21, was contacted at 22:21, regarding consult, patient's condition, wants patient to be given 1 dose of Lovenox tonight and will perform cardiac cath in morning. 05/04 19:13 Order name: Basic Metabolic Panel; Complete Time: 21:16 05/04 21:16 Interpretation: Normal except: CL 109; CO2 20; GLUC 174; BUN 31; CRE 1.63; GFR 32. 05/04 19:13 Order name: CBC with Diff; Complete Time: 21:18 05/04 20:50 Interpretation: Normal except: WBC 18.2; HCT 45.9; RDW 15.7; CARA% 79.8; LYM% 14.0; NEUT cp A 14.5. 05/04 19:13 Order name: LFT's; Complete Time: 21:16 05/04 21:16 Interpretation: Normal except: AST 60; ALK 121; GLOB 4.4; A/G 0.9. 05/04 19:13 Order name: Magnesium; Complete Time: 21:16 05/04 22:00 Interpretation: Abnormal: MG 2.5. 05/04 19:13 Order name: NT PRO-BNP; Complete Time: 21:16 05/04 21:17 Interpretation: Abnormal: NT PRO-BNP 900. 05/04 19:13 Order name: PT-INR; Complete Time: 20:50 05/04 19:13 Order name: Troponin (emerg Dept Use Only); Complete Time: 21:16 05/04 21:16 Interpretation: Abnormal: TROPED 1.20. 05/04 19:13 Order name: CPK; Complete Time: 21:16 05/04 21:53 Interpretation: Abnormal: CPK 1698. 05/04 19:13 Order name: Lactate; Complete Time: 21:15 05/04 21:17 Interpretation: Abnormal: LAC 4.9. 05/04 19:13 Order name: Procalcitonin; Complete Time: 21:37 05/04 21:37 Interpretation: Abnormal: Procalcitonin 1.47. 05/04 19:13 Order name: Urine Microscopic Only; Complete Time: 23:12 05/04 23:12 Interpretation: Normal except: AMORPH 2+. 05/04 19:13 Order name: Blood Culture Adult (2) 05/04 21:16 Order name: CBC Smear Scan; Complete Time: 21:18 [facility] 05/04 22:03 Order name: Urine Dipstick--Ancillary (enter results); Complete Time: 22:18 2 05/04 19:13 Order name: XRAY Chest (1 view); Complete Time: 20:50 05/04 19:13 Order name: EKG; Complete Time: 19:14 05/04 19:13 Order name: CT Head C Spine; Complete Time: 20:50 05/04 21:59 Interpretation: Reviewed report. 05/04 23:28 Order name: Basic Metabolic Panel [facility] 05/04 23:28 Order name: Basic Metabolic Panel [facility] 05/04 23:29 Order name: CONS Physician Consult [facility] 05/04 23:29 Order name: Echo with Doppler [facility] 05/04 23:29 Order name: EKG Electrocardiogram [facility] 05/04 23:29 Order name: EKG Electrocardiogram [facility] 05/04 23:29 Order name: EKG Electrocardiogram [facility] 05/05 00:21 Order name: Lactate Sepsis 2 HR Follow-up EDMS 05/04 19:13 Order name: Cardiac monitoring; Complete Time: 19:40 cp 05/04 19:13 Order name: EKG - Nurse/Tech; Complete Time: 19:40 05/04 19:13 Order name: IV Saline Lock; Complete Time: 19:40 cp 05/04 19:13 Order name: Labs collected and sent; Complete Time: 19:40 05/04 19:13 Order name: O2 Per Protocol; Complete Time: 19:40 05/04 19:13 Order name: O2 Sat Monitoring; Complete Time: 19:40 cp 05/04 19:13 Order name: Urine Dipstick-Ancillary (obtain specimen); Complete Time: 21:54 05/04 23:29 Order name: EKG Electrocardiogram EDMS EC:39 Rate is 119 beats/min. Rhythm is regular. AK interval is prolonged at 132 msec. QRS cp interval is normal at 138 msec. QT interval is normal. T waves are Inverted in leads I, aVL. Interpreted by me. Reviewed by me. Administered Medications: 19:24 Drug: NS 0.9% 1000 ml Route: IV; Rate: 1 bolus; Site: left antecubital; jb4 20:30 Follow up: Response: No adverse reaction; IV Status: Completed infusion; IV Intake: jb4 500ml ; Finished EMS infusion. 20:45 Drug: Tylenol 650 mg Route: PO; jb4 21:45 Follow up: Response: No adverse reaction; Pain is decreased jb4 21:53 Drug: Aspirin Chewable Tablet 324 mg Route: PO; jb4 22:30 Follow up: Response: No adverse reaction jb4 22:50 Drug: Lovenox 1 mg/kg {Note: administered 100mg per ER provider..} Route: Sub-Q; Site: jb4 left lower abdomen; 23:25 Follow up: Response: No adverse reaction jb4 22:56 Drug: Rocephin - (cefTRIAXone) 1 grams {Note: Administered IVP per pharmacy protocol.} jb4 Route: IVPB; Infused Over: 30 mins; Site: right antecubital; 22:59 Follow up: Response: No adverse reaction; IV Status: Completed infusion; IV Intake: [id number] Disposition: 23:00 Chart complete. 05/05 07:24 Co-signature as Attending Physician, Reji Romero MD. mh7 Disposition: 05/04/20 22:23 Hospitalization ordered by Suze Viramontes for Inpatient Admission. Preliminary diagnosis are Syncope and collapse, Non-ST elevation (NSTEMI) myocardial infarction. - Bed requested for Telemetry/MedSurg (Inpatient). - Status is Inpatient Admission. jb4 - Condition is Stable. - Problem is new. - Symptoms have improved. Signatures: Dispatcher [employer] EDMS Radha Navarro RN RN Fidencio Andrade PA PA Gary Setwart RN RN jb4 Selene Gutierrez RN RN ll1 Reji Romero MD MD mh7 Corrections: (The following items were deleted from the chart) 05/04 22:35 22:23 Hospitalization Ordered by Suze Viramontes MD for Inpatient Admission. Preliminary diagnosis is Syncope and collapse; Non-ST elevation (NSTEMI) myocardial infarction. Bed requested for Telemetry/MedSurg (Inpatient). Status is Inpatient Admission. Condition is Stable. Problem is new. Symptoms have improved. cp 05/05 00:31 05/04 22:35 05/04/2020 22:23 Hospitalization Ordered by Suze Viramontes MD for Inpatient jb4 Admission. Preliminary diagnosis is Syncope and collapse; Non-ST elevation (NSTEMI) myocardial infarction. Bed requested for Telemetry/MedSurg (Inpatient). Status is Inpatient Admission. Condition is Stable. Problem is new. Symptoms have improved. mw
--- NOTE | 2020-05-04 22:24 | ER ---
Nurse's Notes [facility] Name: Lara Liu Age: 64 yrs Sex: Female : 1955 Arrival Date: 05/04/2020 Time: 19:10 Bed 16 Private MD: Diagnosis: Syncope and collapse;Non-ST elevation (NSTEMI) myocardial infarction Presentation: 05/04 19:10 Chief complaint: EMS states: Found passed out on ground at work beside her vehicle. ll1 Syncope event, stated she was very hot and dizzy before passing out. 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 Coronavirus screen: Patient denies a cough. Patient denies shortness of breath or difficulty breathing. Patient denies measured and/or subjective temperature greater than 100.4F prior to today's visit. Patient denies travel on a cruise ship or to a country the [facility] currently lists as an affected area. Patient denies contact with known and/or suspected case of COVID-19. Proceed with normal triage. Ebola Screen: Patient denies travel to an Ebola-affected area in the 21 days before illness onset. Initial Sepsis Screen: Does the patient meet any 2 criteria? HR > 90 bpm. Risk Assessment: Do you want to hurt yourself or someone else? Patient reports no desire to harm self or others. Onset of symptoms was May 04, 2020. 19:10 Method Of Arrival: EMS: [facility] 1 19:10 Acuity: CRIS 2 ll1 Historical: - Allergies: 19:13 No Known Drug Allergies; ll1 - PMHx: 19:13 Diabetes - NIDDM; Hyperlipidemia; Hypothyroidism; Hypertension; CHF; Sleep Apnea; ll1 - Immunization history:: Adult Immunizations up to date. - Social history:: Smoking status: Patient denies any tobacco usage or history of. Patient/guardian denies using alcohol, street drugs. Screenin:00 Abuse screen: Denies threats or abuse. Nutritional screening: No deficits noted. jb4 Tuberculosis screening: No symptoms or risk factors identified. Fall Risk IV access (20 points). Gait- Weak (10 pts.). Total Dykes Fall Scale indicates Low Risk Score (25-44 pts). Fall prevention measures have been instituted. Side Rails Up X 2 Placed close to Nursing Station Frequent Obs/Assesments occuring As available Patient and Family Educated on Fall Prevention Program and strategies. Assessment: 19:00 General: Appears in no apparent distress. uncomfortable, Behavior is calm, cooperative, jb4 appropriate for age. Pain: Complains of pain in Headache. Pain does not radiate. Pain currently is 10 out of 10 on a pain scale. Neuro: Level of Consciousness is awake, alert, obeys commands, Oriented to person, place, time, situation. Cardiovascular: Patient's skin is warm and dry. Respiratory: Airway is patent Respiratory effort is even, unlabored, Respiratory pattern is regular, symmetrical. GI: No signs and/or symptoms were reported involving the gastrointestinal system. : No signs and/or symptoms were reported regarding the genitourinary system. EENT: No signs and/or symptoms were reported regarding the EENT system. Derm: Skin is intact, Skin is pink, warm \T\ dry. Musculoskeletal: Circulation, motion, and sensation intact. Range of motion: intact in all extremities. 19:40 Reassessment: PT to Ct, provider notified that patient is requesting something for her jb4 headache. 20:00 Reassessment: Patient appears in no apparent distress at this time. Patient and/or jb4 family updated on plan of care and expected duration. Pain level reassessed. Patient is alert, oriented x 3, equal unlabored respirations, skin warm/dry/pink. 20:30 Reassessment: Spoke with daughter, Nanette Adams, , updated on POC. jb4 21:45 Reassessment: Patient appears in no apparent distress at this time. Patient and/or jb4 family updated on plan of care and expected duration. Pain level reassessed. Patient is alert, oriented x 3, equal unlabored respirations, skin warm/dry/pink. PT given a bed bath with linens changed. Patient states feeling better. 22:45 Reassessment: Patient appears in no apparent distress at this time. Patient and/or jb4 family updated on plan of care and expected duration. Pain level reassessed. Patient is alert, oriented x 3, equal unlabored respirations, skin warm/dry/pink. Pt gave verbal consent to keep daughter up to date. 23:15 Reassessment: tried to call report instructed to wait for call back. jb4 23:23 Reassessment: Patient appears in no apparent distress at this time. Patient and/or jb4 family updated on plan of care and expected duration. Pain level reassessed. Patient is alert, oriented x 3, equal unlabored respirations, skin warm/dry/pink. Report called to LUZ ELENA Cotter. Vital Signs: 19:10 BP 136 / 85; Pulse 129; Resp 18; Temp 98.8; Pulse Ox 91% on R/A; Pain 0/10; ll1 20:00 BP 125 / 80; Pulse 107; Resp 20; Pulse Ox 96% on 1.5 lpm NC; jb4 21:30 BP 137 / 103; Pulse 95; Resp 20; Pulse Ox 95% on R/A; jb4 22:30 BP 106 / 74; Pulse 92; Resp 16; Pulse Ox 94% on R/A; jb4 22:40 Weight 122.47 kg (R); Height 5 ft. 4 in. (162.56 cm) (R); jb4 22:40 Body Mass Index 46.34 (122.47 kg, 162.56 cm) jb4 ED Course: 19:00 Patient has correct armband on for positive identification. Placed in gown. Bed in low jb4 position. Call light in reach. Side rails up X 1. ekg monitor on. Pulse ox on. NIBP on. 19:00 Maintain EMS IV. Dressing intact. Site clean \T\ dry. Gauge \T\ site: 20g LAC. caity 4 19:00 Initial lab(s) drawn, by me, sent to lab. jb4 19:10 Patient arrived in ED. ll1 19:10 Fidencio Andrade PA is PHCP. cp 19:10 Reji Romero MD is Attending Physician. cp 19:12 Triage completed. ll1 19:13 Arm band placed on Patient placed in an exam room, on a stretcher. ll1 19:24 Gary Hernandez, LUZ ELENA is Primary Nurse. jb4 19:50 XRAY Chest (1 view) In Process Unspecified. EDMS 19:53 CT Head C Spine In Process Unspecified. EDMS 20:15 Inserted saline lock: 18 gauge in right antecubital area, using aseptic technique. jb4 Blood collected. 20:15 Lab(s) recollected, by me, sent to lab. First set of blood cultures drawn. jb4 20:30 Second set of blood cultures drawn. jb4 20:43 Message left for son Benjy Liu [phone]. Asked to call ER back regarding his ll1 mother. Friend Carmen Damon contacted [phone], aware of patients situation. Mrs. Damon stated she would try to contact her family. 20:52 Blood Culture Adult (2) Sent. jb4 20:52 Procalcitonin Sent. jb4 20:52 Lactate Sent. jb4 20:52 CPK Sent. jb4 20:52 LFT's Sent. jb4 20:52 Basic Metabolic Panel Sent. jb4 20:52 NT PRO-BNP Sent. jb4 20:52 Magnesium Sent. jb4 21:16 Notified Nurse Practitioner and/or Physician Hydraulic Press In Operator of a critical lab result(s), Lac jb4 4.9, CPK 1698, trop 1.20. 22:23 Suze Viramontes MD is Hospitalizing Provider. cp 23:23 No provider procedures requiring assistance completed. Patient admitted, IV remains in jb4 place. Administered Medications: 19:24 Drug: NS 0.9% 1000 ml Route: IV; Rate: 1 bolus; Site: left antecubital; jb4 20:30 Follow up: Response: No adverse reaction; IV Status: Completed infusion; IV Intake: jb4 500ml ; Finished EMS infusion. 20:45 Drug: Tylenol 650 mg Route: PO; jb4 21:45 Follow up: Response: No adverse reaction; Pain is decreased jb4 21:53 Drug: Aspirin Chewable Tablet 324 mg Route: PO; jb4 22:30 Follow up: Response: No adverse reaction jb4 22:50 Drug: Lovenox 1 mg/kg {Note: administered 100mg per ER provider..} Route: Sub-Q; Site: jb4 left lower abdomen; 23:25 Follow up: Response: No adverse reaction jb4 22:56 Drug: Rocephin - (cefTRIAXone) 1 grams {Note: Administered IVP per pharmacy protocol.} jb4 Route: IVPB; Infused Over: 30 mins; Site: right antecubital; 22:59 Follow up: Response: No adverse reaction; IV Status: Completed infusion; IV Intake: [id number] Intake: 20:30 IV: 500ml; Total: 500ml. jb4 22:59 IV: 10ml; Total: 510ml. jb4 Outcome: 22:23 Decision to Hospitalize by Provider. cp 23:23 Admitted to Med/surg accompanied by tech, via stretcher, room 223, with chart, Report jb4 called to LUZ ELENA Cotter 23:23 Condition: stable 23:23 Discharge instructions given to patient, Instructed on the need for admit, Demonstrated understanding of instructions. 05/05 00:31 Patient left the ED. jb4 Signatures: Dispatcher [employer] EDMS Fidencio Andrade PA PA cp Bryson, James, RN RN jb4 Selene Gutierrez RN RN ll1 Corrections: (The following items were deleted from the chart) 05/04 23:24 22:45 Reassessment: Patient appears in no apparent distress at this time. Patient jb4 and/or family updated on plan of care and expected duration. Pain level reassessed. Patient is alert, oriented x 3, equal unlabored respirations, skin warm/dry/pink. jb4
[2020-05-04] MEDS ORDERED: CEFTRIAXONE/SWI 1gm 1 GM/10 ML SYR ONE (22:57)
[2020-05-04] MEDS ORDERED: ENOXAPARIN 100 MG/ML SYR SQ ONE (22:57)
[2020-05-04 23:05] LABS: Urine Amorphous Sediment 2+ /HPF (NONE SEEN); Urine Bacteria <20 /HPF (<20); Urine Mucus 1+ /HPF (NONE SEEN); Urine Urothelial Cells <5 /HPF (NONE SEEN)
[2020-05-04 23:06] LABS: Urine Culture Reflex Order NOT NEEDED; Urine RBC NONE SEEN /HPF (NONE SEEN)
[2020-05-04] MEDS ORDERED: ONDANSETRON 4 MG/2 ML VIAL IV PRN (23:22)
[2020-05-04] MEDS ORDERED: METOPROLOL TARTRATE 5 MG/5 ML INJ IV PRN (23:22)
[2020-05-04] MEDS ORDERED: D5W 1,000 ML with NA BICARB 8.4% 50 MEQ IV SCH ×2 (23:45)
[2020-05-05 00:28] VITALS: BMI 43.6
[2020-05-05] MEDS ORDERED: SODIUM BICARB 50 MEQ/50ML VIAL ONE (01:23)
[2020-05-05] MEDS ORDERED: D5W 1,000 ML IV ONE (01:23)
[2020-05-05] MEDS: MORPHINE 4 MG/ML SYR IV PRN ×2 (01:24→15:15)
--- NOTE | 2020-05-05 04:53 | P.HP ---
Certification for Inpatient Patient admitted to: Inpatient With expected LOS: >2 Midnights Patient will require the following post-hospital care: None Practitioner: I am a practitioner with admitting privileges, knowledge of patient current condition, hospital course, and medical plan of care. Services: Services provided to patient in accordance with Admission requirements found in Title 42 Section 412.3 of the Code of Federal Regulations Patient History Date of Service: 05/05/20 Reason for admission: ACUTE CORONARY SYNDROME; SYNCOPE AND COLLAPSE History of Present Illness: PATIENT IS A 64-YEAR-OLD FEMALE CAME TO THE HOSPITAL AFTER BEING FOUND ON THE GROUND UNRESPONSIVE. SHE APPARENTLY HAD GONE TO HER CAR AFTER WORK AND HAD A SYNCOPAL EVENT AND COLLAPSE. SHE WAS BROUGHT TO THE HOSPITAL WERE SHE WAS FOUND HAVE AN ELEVATED CPK LEVEL AND ELEVATED TROPONINS. PATIENT HAS SEVERELY ELEVATED LACTIC ACID LEVEL AND ACUTE RENAL INSUFFICIENCY. PATIENT ALSO HAVE LEUKOCYTOSIS. WILL START PATIENT ON IV FLUIDS AND IV ANTIBIOTICS. CARDIOLOGY CONSULTATION FOR POSSIBLE CARDIAC CATHETERIZATION. BICARB DRIP FOR RHABDOMYOLYSIS AND FOR RENAL PROTECTION FOR CARDIAC CATHETERIZATION. Allergies No Known Drug Allergies Allergy (Verified 10/01/15 13:23) Unknown No Known Allergies Allergy (Uncoded 01/04/16 21:00) Unknown Home Medications: Atorvastatin Calcium [Lipitor*] 10 mg PO DAILY 03/29/19 Divalproex ER [Depakote *ER] 500 mg PO BEDTIME 03/29/19 Empagliflozin [Jardiance] 1 tab PO DAILY 03/29/19 Furosemide [Lasix*] 20 mg PO DAILY 03/29/19 Levothyroxine [Synthroid*] 2 tab PO [id number] 03/29/19 Meloxicam [Mobic*] 7.5 mg PO DAILY 03/29/19 Multivitamin/Iron/Folic Acid [Centrum Women Tablet] 1 tab PO DAILY 03/29/19 Oxybutynin Chloride 2 tab PO DAILY 03/29/19 Pot Chloride/Edward Phos/Mag [Medi-Lyte Tablet] 20 meq PO BEDTIME 03/29/19 Trazodone [Desyrel*] 50 mg PO BEDTIME 03/29/19 Venlafaxine HCl [Venlafaxine HCl ER] 150 mg PO DAILY 03/29/19 carvediloL [Coreg*] 6.25 mg PO BID 03/29/19 - Past Medical/Surgical History Has patient received pneumonia vaccine in the past: Yes Diabetic: Yes -: HTN -: Hypothyroidism -: Depression with insomnia -: Obstructive sleep apnea -: PTSD -: Diabetes mellitus -: Morbid obesity -: GERD -: CHF, diastolic dysfunction -: Achilles tendon repair -: Cervical neck surgery -: Gastric bypass -: Hernia repair -: Cholecystectomy -: Hysterectomy Psychosocial/ Personal History: The patient lives by herself. She is a . She has 2 children. - Family History Father Notes: adopted Mother Notes: adopted - Social History Smoking Status: Never smoker Alcohol use: No CD- Drugs: No Caffeine use: Yes Place of Residence: Home Review of Systems 10-point ROS is otherwise unremarkable Physical Examination - Vital Signs Temperature: 97.1 F Blood Pressure: 104/58 Pulse: 73 Respirations: 18 Pulse Ox (%): 95 - Physical Exam General: Alert, In no apparent distress, Oriented x3 HEENT: Atraumatic, PERRLA, Mucous membr. moist/pink, EOMI, Sclerae nonicteric Neck: Supple, 2+ carotid pulse no bruit, No LAD, Without JVD or thyroid abnormality Respiratory: Clear to auscultation bilaterally, Normal air movement Cardiovascular: Regular rate/rhythm, Normal S1 S2 Gastrointestinal: Normal bowel sounds, No tenderness Musculoskeletal: No tenderness Integumentary: No rashes Neurological: Normal gait, Normal speech, Normal strength at 5/5 x4 extr, Normal tone, Normal affect Lymphatics: No axilla or inguinal lymphadenopathy - Studies Laboratory Data (last 24 hrs) 05/04/20 20:15: Sodium 143, Potassium 3.6, BUN 31 H, Creatinine 1.63 H, Glucose 174 H, Magnesium 2.5 H, Total Bilirubin 0.5, AST 60 H, ALT 18, Alkaline Phosphatase 121 H 05/04/20 19:30: PT 12.6 H, INR 1.07 05/04/20 19:30: WBC 18.2 H, Hgb 14.8, Hct 45.9 H, Plt Count 274 Assessment & Plan - Problems (Diagnosis) (1) Acute coronary syndrome Current Visit: Yes Status: Acute (2) Rhabdomyolysis Current Visit: Yes Status: Acute (3) Leukocytosis Current Visit: Yes Status: Acute (4) Acute renal insufficiency Current Visit: Yes Status: Acute (5) Lactic acidosis Current Visit: Yes Status: Acute (6) Morbid obesity Current Visit: Yes Status: Acute (7) Hypertension Current Visit: Yes Status: Acute (8) Type 2 diabetes mellitus Current Visit: Yes Status: Acute - Plan 1. Serial troponins and EKG 2. Appreciate Cardiology consultation 3. Cardiac catheterization this morning 4. Anti-platelet therapy, anti coagulation, beta-romel, statin, and O2 as needed 5. IV morphine for pain 6. Nitro p.r.n. 7. Strict blood pressure and blood sugar control 8. GI and DVT prophylaxis Discharge Plan: Home Plan to discharge in: Greater than 2 days - Advance Directives Does patient have a Living Will: Yes Does patient have a Durable POA for Healthcare: Yes - Code Status/Comfort Care Code Status Assessed: Yes Code Status: Full Code Critical Care: No Time Spent Managing PTS Care (In Minutes): 45
[2020-05-05 06:01] LABS: Absolute Lymphocytes (CBC) 3.9 K/uL (0.7-4.9); Basophils % 0.5 % (0-1.3); Hematocrit 37.9 % (36.0-45.0); Lymphocytes % 30.1 % (15.3-44.8); MPV 8.4 fL (7.6-11.3)
[2020-05-05 06:04] LABS: Protime INR 1.13
[2020-05-05 06:34] LABS: Magnesium 2.3 mg/dL (1.8-2.4); Phosphorus 5.3 mg/dL (2.5-4.9); Potassium 3.3 mmol/L (3.5-5.1)
[2020-05-05 06:37] LABS: Troponin I 3.08 ng/mL (0.0-0.045)
[2020-05-05] MEDS ORDERED: HEPA 1000U/500MLS 2,000 UNIT/1,000 ML BAG IV ONE (08:38)
[2020-05-05] MEDS ORDERED: HEPARIN 5000 UNIT/ML 1 ML VIAL ONE (08:51)
[2020-05-05] MEDS ORDERED: MIDAZOLAM HCL 2 MG/2 ML INJ ONE ×2 (08:52→10:04)
[2020-05-05] MEDS ORDERED: NICARDIPINE HCL 25 MG/10 ML IV ONE (08:52)
[2020-05-05] MEDS ORDERED: FENTANYL CITR 100 MCG/2 ML ONE (08:52)
[2020-05-05] MEDS ORDERED: NITROGLYCERIN/D5W 25 MG/250 ML BTL IV ONE (08:53)
[2020-05-05] MEDS ORDERED: ATROPINE SULF 1 MG/10 ML SYR IV ONE (08:53)
[2020-05-05] MEDS: ASPIRIN EC 81 MG TAB PO SCH (08:54)
[2020-05-05] MEDS: CLOPIDOGREL 75 MG TABLET PO SCH (08:54)
[2020-05-05] MEDS: METOPROLOL TAR 50 MG TAB PO SCH ×2 (08:56→21:00)
[2020-05-05] MEDS ORDERED: POTASSIUM CL SA 10 MEQ TAB PO ONE (09:00)
[2020-05-05] MEDS ORDERED: NA CHLORIDE 0.9% 500 ML ONE (09:03)
--- NOTE | 2020-05-05 12:22 | ECHO ---
HEIGHT: 5 ft 4 in WEIGHT: 254 lb 4 oz DATE OF STUDY: 05/05/[address]: Suze Viramontes MD 2-DIMENSIONAL: YES M.MODE: YES DOPPLER: YES COLOR FLOW: YES TDS: YES PORTABLE: NO DEFINITY: NO BUBBLE STUDY: NO DIAGNOSIS: ACUTE CORONARY SYDROME CARDIAC HISTORY: CATHERIZATION: YES SURGERY: NO PROSTHETIC VALVE: NO PACEMAKER: NO MEASUREMENTS (cm) DIASTOLIC (NORMALS) SYSTOLIC (NORMALS) IVSd 1.1 (0.6-1.2) LA Diam 3.8 (1.9-4.0) LVEF 50% LVIDd 5.1 (3.5-5.7) LVIDs 3.8 (2.0-3.5) %FS 25% LVPWd 1.3 (0.6-1.2) Ao Diam 2.8 (2.0-3.7) 2 DIMENSIONAL ASSESSMENT: RIGHT ATRIUM: NORMAL LEFT ATRIUM: NORMAL RIGHT VENTRICLE: NORMAL LEFT VENTRICLE: NORMAL TRICUSPID VALVE: NORMAL MITRAL VALVE: MITRAL ANNULAR CALCIFICATION PULMONIC VALVE: NORMAL AORTIC VALVE: NORMAL PERICARDIAL EFFUSION: NONE AORTIC ROOT: NORMAL LEFT VENTRICULAR WALL MOTION: NORMAL. DOPPLER/COLOR FLOW: NORMAL. COMMENTS: NORMAL LEFT VENTRICULAR EJECTION FRACTION 55-60%. NORMAL WALL MOTION. MILD MITRAL ANNULAR CALCIFICATION. TECHNOLOGIST: CLARITA PATRICK
[2020-05-05] MEDS ORDERED: HYDROCORTISONE 1 % CREAM 30GM TOP PRN (14:21)
[2020-05-05] MEDS ORDERED: DIPHENHYDRAMINE 50 MG/ML VIAL IV ONE (14:21)
[2020-05-05] MEDS: D5W 1,000 ML with NA BICARB 8.4% 50 MEQ IV SCH ×2 (15:03)
[2020-05-05 15:27] LABS: Potassium 4.3 mmol/L (3.5-5.1)
--- NOTE | 2020-05-05 20:02 | HP ---
Date of Admission: 05/04/2020 Chief Complaint: Syncope and collapse. History Of Present Illness: A 64-year-old female presented to the hospital after she had an acute co llapse, loss consciousness. She was getting into her car after work and she passed out. The next th ing she remembers, she was in the hospital. She was found to have elevated troponin. Denies having any nausea or vomiting. No abdominal pain. There is no chest pain or shortness of breath. Past Medical History: Hypertension, hypothyroidism, depression, obstructive sleep apnea, diabetes, _ , CHF, back pain. Past Surgical History: Cholecystectomy, hysterectomy. Social History: She does not smoke or drink. Does not use any drugs. Family History: No premature coronary artery disease or cancer. Review of Systems: All systems reviewed and they were negative except as mentioned in the HPI. Physical Examination: Vital Signs: Temperature is 97.4, pulse 72, breathing at 16, blood pressure is 106/61, saturating 97 % on room air. General: Pleasant, elderly female, in no apparent distress. Head and Neck: Pupils are equal, reactive to light. Intact eye movements. No JVD. No cervical lym phadenopathy. Neck: Supple. Thyroid is not enlarged. Lungs: Clear to auscultation bilaterally. No rhonchi, rales, or crackles. No accessory muscle use. Heart: Regular rate and rhythm. No extra sounds. Abdomen: Soft, nontender. Bowel sounds positive. No organomegaly. No masses or hernia. No rigidi ty or rebound. Extremities: No edema, clubbing, or cyanosis. Intact pulses. Skin: No rashes. Neurologic: Alert, awake, oriented x3. No acute focal deficits appreciated. Lymph Nodes: No cervical or axillary lymphadenopathy. Investigations: Sodium 142, creatinine 1.1. Troponin 3.08. Assessment And Plan: 1.Non-ST elevation myocardial infarction. EKG; she has a left bundle branch block. for selective coronary angiogram this morning. Further management accordingly. 2.Status post ground level fall with elevated CK. This could be rhabdomyolysis and troponin could b e due to the rhabdomyolysis. However, due to syncope and left bundle branch block, obstru ctive coronary artery disease. Plan: As above. SR/MODL Voice ID: [id number]
[2020-05-05] MEDS ORDERED: ATORVASTATIN 20 MG TAB PO SCH (21:00)
[2020-05-05] MEDS: GABAPENTIN 300 MG CAP PO SCH (21:55)
[2020-05-05] MEDS: ACETAMINOPHEN 500 MG TAB PO PRN (22:42)
[2020-05-06 01:06] VITALS: O2SAT 96
--- NOTE | 2020-05-06 02:57 | OP ---
Date of Procedure: 05/05/2020 Surgeon: FADY NICOLAS Procedure Performed: Selective coronary angiogram. Indication: Non-ST elevation myocardial infarction. Access: Right radial artery 6-Maltese, closed with TR band. Complications: None. Bleeding: Less than 10 mL. Description Of Procedure: After risks, benefits, and alternatives were explained to the patient, the patient agreed to the procedure and signed informed consent. The patient was brought into the [facility] catheterization laboratory, prepped and draped in usual sterile fashion. We accessed right radial artery using pediatric micropuncture kit and then we introduced a 5-Maltese [place] catheter into the a ortic root over J-wire, engaged left main coronary artery and right coronary artery, and then we took standard views and then took wires and catheters out and the sheath and we closed the access with a TR band. Findings: 1.Left main is short than normal, so almost separate ostia of the LAD and the left circumflex. 2.LAD, large vessel, normal. 3.Left circumflex, large vessel, normal. 4.RCA is normal. Impression: Normal coronary arteries. Recommendations: Medical management. /CHIQUITA Voice ID: [id number] Report ID: [id number]
[2020-05-06] MEDS: D5W 1,000 ML with NA BICARB 8.4% 50 MEQ IV SCH ×2 (05:00)
[2020-05-06] MEDS: ASPIRIN EC 81 MG TAB PO SCH (08:52)
[2020-05-06] MEDS: METOPROLOL TAR 50 MG TAB PO SCH (08:53)
[2020-05-06] MEDS: GABAPENTIN 300 MG CAP PO SCH (08:53)
[2020-05-06] MEDS: CLOPIDOGREL 75 MG TABLET PO SCH (08:53)
--- NOTE | 2020-05-06 11:21 | PN ---
Subjective: Ms. Liu had no issues overnight. She is status post heart catheterization by Dr. Dre león yesterday. Vital signs were stable, afebrile. Her right wrist entry site is intact without any hematoma. Final Diagnoses: Hypertension, depression, diabetes, sleep apnea, and syncope, most likely secondary to orthostatic hypotension. She had an episode of elevated troponin with normal heart catheterization. The patient takes multipl e medications at home which include Lipitor, Depakote, Jardiance, Lasix, Synthroid, Effexor and Coreg . decrease her Lasix dose Coreg, and if she has any more syncopal episode ____ . She can otherwise go home today. DAMARIS/CHIQUITA Voice ID: [id number] Report ID: [id number]
--- NOTE | 2020-05-06 11:44 | P.DS ---
Admission Date: 05/04/20 Discharge Date: 05/06/20 Disposition: ROUTINE DISCHARGE Discharge Condition: GOOD Reason for Admission: ACUTE CORONARY SYNDROME; SYNCOPE AND COLLAPSE Brief History of Present Illness: 64-YEAR-OLD FEMALE CAME TO THE HOSPITAL AFTER BEING FOUND ON THE GROUND UNRESPONSIVE. SHE APPARENTLY HAD GONE TO HER CAR AFTER WORK AND HAD A SYNCOPAL EVENT AND COLLAPSE. SHE WAS BROUGHT TO THE HOSPITAL WERE SHE WAS FOUND HAVE AN ELEVATED CPK LEVEL AND ELEVATED TROPONINS. PATIENT HAS SEVERELY ELEVATED LACTIC ACID LEVEL AND ACUTE RENAL INSUFFICIENCY. PATIENT ALSO HAVE LEUKOCYTOSIS. WILL START PATIENT ON IV FLUIDS AND IV ANTIBIOTICS. CARDIOLOGY CONSULTATION FOR POSSIBLE CARDIAC CATHETERIZATION. BICARB DRIP FOR RHABDOMYOLYSIS AND FOR RENAL PROTECTION FOR CARDIAC CATHETERIZATION. Hospital Course: (1) Acute coronary syndrome NSTEMI (2) Rhabdomyolysis (3) Leukocytosis (4) Acute renal insufficiency (5) Lactic acidosis (6) Morbid obesity (7) Hypertension (8) Type 2 diabetes mellitus The patient was admitted and was started on aspirin statin, Plavix. Patient was monitored under telemetry and cardiac enzymes were trended. Cardiology performed a left heart catheterization later showing nonobstructive major coronaries. Chest pain resolved. Antihypertensives were titrated. Renal parameters of monitored also was started on IV fluids for acute kidney injury. Renal parameters are monitored. Cardiology recommended conservative management with aspirin statin and Plavix and outpatient follow up. The patient is being discharged home today in a stable condition with advice to follow up with PCP in 1 week and also with Cardiology in 1-2 weeks . Vital Signs/Physical Exam: Temp Pulse Resp BP Pulse Ox 96.9 F 75 20 119/66 96 05/06/20 08:00 05/06/20 08:53 05/06/20 08:00 05/06/20 08:53 05/06/20 08:00 General: Alert, In no apparent distress HEENT: Atraumatic, Normocephalic Neck: Supple Respiratory: Clear to auscultation bilaterally, Normal air movement Cardiovascular: Normal pulses, Regular rate/rhythm Capillary refill: <2 Seconds Gastrointestinal: Soft and benign, W/out hepatosplenomegaly Musculoskeletal: No clubbing, No swelling Integumentary: No rashes Neurological: Normal speech, Normal strength at 5/5 x4 extr Lymphatics: No axilla or inguinal lymphadenopathy Laboratory Data at Discharge: WBC 13.1 K/uL (4.3-10.9) H D 05/05/20 05:20 Hgb 12.6 g/dL (12.0-15.0) 05/05/20 05:20 Hct 37.9 % (36.0-45.0) D 05/05/20 05:20 Plt Count 254 K/uL (152-406) 05/05/20 05:20 PT 13.3 SECONDS (9.5-12.5) H 05/05/20 05:20 INR 1.13 05/05/20 05:20 APTT 33.2 SECONDS (24.3-36.9) 05/05/20 05:20 Sodium 139 mmol/L (136-145) 05/05/20 15:00 Potassium 4.3 mmol/L (3.5-5.1) 05/05/20 15:00 BUN 29 mg/dL (7-18) H 05/05/20 15:00 Creatinine 0.97 mg/dL (0.55-1.3) 05/05/20 15:00 Glucose 156 mg/dL (74-106) H 05/05/20 15:00 Phosphorus 5.3 mg/dL (2.5-4.9) H 05/05/20 05:20 Magnesium 2.3 mg/dL (1.8-2.4) 05/05/20 05:20 Total Bilirubin 0.5 mg/dL (0.2-1.0) 05/04/20 20:15 AST 60 U/L (15-37) H 05/04/20 20:15 ALT 18 U/L (12-78) 05/04/20 20:15 Alkaline Phosphatase 121 U/L (45-117) H 05/04/20 20:15 Troponin I 3.89 ng/mL (0.0-0.045) H* 05/05/20 13:20 Triglycerides 169 mg/dL (<150) H 05/05/20 05:20 Cholesterol 123 mg/dL (<200) 05/05/20 05:20 HDL Cholesterol 46 mg/dL (40-60) 05/05/20 05:20 Cholesterol/HDL Ratio 2.67 05/05/20 05:20 Home Medications: Atorvastatin Calcium [Lipitor*] 10 mg PO DAILY 03/29/19 Divalproex ER [Depakote *ER] 500 mg PO BEDTIME 03/29/19 Empagliflozin [Jardiance] 1 tab PO DAILY 03/29/19 Furosemide [Lasix*] 20 mg PO DAILY 03/29/19 Levothyroxine [Synthroid*] 2 tab PO [id number] 03/29/19 Meloxicam [Mobic*] 15 mg PO DAILY 03/29/19 Multivitamin/Iron/Folic Acid [Centrum Women Tablet] 1 tab PO DAILY 03/29/19 Oxybutynin Chloride 2 tab PO DAILY 03/29/19 Trazodone [Desyrel*] 50 mg PO BEDTIME 03/29/19 Venlafaxine HCl [Venlafaxine HCl ER] 150 mg PO DAILY 03/29/19 Aspirin [Aspirin EC 81 MG] 81 mg PO DAILY #30 tablet. 05/06/20 Clopidogrel Bisulfate [Plavix*] 75 mg PO DAILY #30 tablet 05/06/20 Fluticasone Propionate [Flovent Diskus] 1 puff IH BID 05/06/20 Gabapentin 1 cap PO BID 05/06/20 Meclizine HCl 1 tab PO DAILY 05/06/20 Metoprolol Tartrate [Lopressor*] 25 mg PO BID 30 Days #60 tab 05/06/20 Scopolamine 1 patch TD SEECOM PRN 05/06/20 Tramadol HCl [Ultram] 1 tab PO DAILY 05/06/20 New Medications: Aspirin [Aspirin EC 81 MG] 81 mg PO DAILY #30 tablet. Metoprolol Tartrate [Lopressor*] 25 mg PO BID 30 Days #60 tab Clopidogrel Bisulfate [Plavix*] 75 mg PO DAILY #30 tablet Diet: [facility] Followup: Jj Sanchez MD [ACTIVE - CAN ADMIT] - (Call to make an appointment. ) Time spent managing pt's care (in minutes): 45
[2020-05-06] MEDS: ACETAMINOPHEN 500 MG TAB PO PRN (14:01)
--- NOTE | 2020-05-06 15:38 | EKG ---
Test Date: 2020-05-06 Test Time: 10:12:01 Bank Representative: ADOLFO MEASUREMENT RESULTS: Intervals: Rate: 62 MD: 190 QRSD: 132 QT: 528 QTc: 535 [place]: P: 40 MD: 190 QRS: -68 T: 256 INTERPRETIVE STATEMENTS: Normal sinus rhythm Left bundle branch block Abnormal ECG Compared to ECG 05/04/2020 19:36:52 Sinus tachycardia no longer present Left-axis deviation no longer present Electronically Signed On 05-06-20 15:38:08 CDT by Jj Sanchez
[2020-05-06 16:29] VITALS: BP 109/62; TEMP 97.4
[2020-05-06] MEDS ORDERED: DIVALPROEX ER 250 MG TAB PO SCH (21:00)
[2020-05-06] MEDS ORDERED: TRAZODONE 50 MG TABLET PO SCH (21:00)
== END 2020-05-06 16:50 | disposition home or self-care (01) | DRG 281 ==
LOC: ER 19:05 → 2ND 23:46
PROVIDERS: ADMIT Family Medicine; ATTEND Family Medicine
PROC: 4A023N7 Measurement of Cardiac Sampling and Pressure, Left Heart, Percutaneous Approach (ICD-10-PCS; principal; 2020-05-04)
PROC: B2111ZZ Fluoroscopy of Multiple Coronary Arteries using Low Osmolar Contrast (ICD-10-PCS; 2020-05-04)
DX: I21.4 Non-ST elevation (NSTEMI) myocardial infarction (principal); M62.82 Rhabdomyolysis; E87.2 Acidosis; Z68.41 Body mass index [BMI] 40.0-44.9, adult; I95.1 Orthostatic hypotension; E66.01 Morbid (severe) obesity due to excess calories; E11.9 Type 2 diabetes mellitus without complications; I10 Essential (primary) hypertension; E78.5 Hyperlipidemia, unspecified; D72.829 Elevated white blood cell count, unspecified; R79.89 Other specified abnormal findings of blood chemistry; Z79.890 Hormone replacement therapy; Z79.899 Other long term (current) drug therapy; E03.9 Hypothyroidism, unspecified; K21.9 Gastro-esophageal reflux disease without esophagitis; Z90.49 Acquired absence of other specified parts of digestive tract; Z90.710 Acquired absence of both cervix and uterus; Z60.2 Problems related to living alone; N28.9 Disorder of kidney and ureter, unspecified; Z11.59 Encounter for screening for other viral diseases; F32.9 Major depressive disorder, single episode, unspecified; G47.33 Obstructive sleep apnea (adult) (pediatric)
CPT/HCPCS: 36415; 70450; 71045; 72125; 80048; 80061; 80076; 81003; 81015; 82550; 82947; 83605; 83735; 83880; 84100; 84145; 84484; 85025; 85610; 85730; 87040; 93005; 93306; 93458; 96361; 96372; 96374; 99285; C1893; J0696; J1200; J1644; J1650; J2250; J3010; J7040; U0002

== ENCOUNTER 2021-06-18 01:01 | Emergency (ER) | payer OTHER ==
--- OUTSIDE RECORDS SUMMARY | 2021-06-18 01:08 | XMS REPORT | Continuity of Care Document ---
:1955 Author Organization [facility] t Address [address] [place] [address] Care Team Providers Name Role Phone Jonah CHAVEZ Primary Care Physician DR CLEMENTINE Attending Clinician Unavailable GISELLE GAONA Attending Clinician Unavailable GIOVANNI SPRING Attending Clinician Unavailable DR CLEMENTINE Admitting Clinician Unavailable MARGARITA Admitting Clinician Unavailable Payers Payer Name Policy Type Policy Number Effective Date Expiration Date S ource Problems Condition Condition Condition Status Onset Resolution [...] Me dical type 2 type 2 00 Center Essential Essential Disease Active [facility] hypertensi hypertensi 5-14 [facility]ella kes - on on 00:00: Medical 00 Center Low back Low back Disease [facility] Diabetes Diabetes Disease [facility] mellitus mellitus [facility] 00 Center KWAKU KWAKU Disease Active [facility] (obstructi (obstructi 2-14 [facility]ella kes - ve sleep ve sleep 00:00: Medica l apnea) apnea) 00 Center Thyroid Thyroid Disease Active [facility] disease disease 2-14 [facility] - 00:[facility]: Medical 00 Center Morbid Morbid Disease Active [facility] obesity obesity 2-14 [facility] - 00:[facility]: Medical 00 Center Essential Essential Disease Active [facility] hypertensi hypertensi 2-14 [facility]ella kes - on on 00:00: Medical 00 Center Mastitis Mastitis Disease Active [facility] of left of left 2-14 [facility] - breast breast 00:00: Medical unrelated unrelated 00 Cent er to to or or breastfeed breastfeed ing ing S/P S/P Disease Active [facility] cervical cervical 8-18 st spinal spinal 00:00: Hospita fusion fusion 00 l Sinusitis Sinusitis Problem Active [facility] - [...] Propensi Active Swelling [facility] ty to 8-04 [facility] - adverse 00:00: Medical reaction 00 Center s Shrimp Propensi Active Swelling [facility] ty to 05-20 [facility] - adverse 00:00: Medical reaction 00 Center s Iodine Propensi Active Swelling Method i ty to 05-20 st adverse 00:00: Hospita reaction 00 l s to drug Shrimp Propensi Active Swelling Method i ty to 05-20 st adverse 00:00: Hospita reaction 00 l s to drug IODINE DA [facility] CONTRAST 05-27 [place] 00:00: Orthope 00 dic Hospita l No Known DA Active [facility] Drug 05-27 [place] Allergie 00:00: Orthope s 00 dic Hospita l No Known DA Active [facility] Food 05-27 [place] Allergie 00:00: Orthope s 00 dic Hospita l No Known DA Active [facility] Other 05-27 [place] Allergie 00:00: Orthope s 00 dic Hospita l iodine DA Active [facility] 06-14 [place] 00:00: Orthope 00 dic Hospita l Social History Social Habit Start Date Stop Date Quantity Comments Source Sex Assigned At [facility] Tobacco use and 2017-11-30 2017-11-[address] [facility] exposure 00:00:00 00:00:00 [facility] Alcohol intake 2017-11-30 2017-11-30 Current [facility] es - 00:00:00 00:00:00 non-drinker of Medical nter alcohol (finding) Smoking Status Start Date Stop Date Source Never smoker [facility] Medications Ordered Filled Start Stop Current Ordering Indication Dosage Frequency Signature Comments Components Source Medication Medication Date Date Medication? Clinician (SIG) Name Name traZODone Yes 50mg QD Take [address] (DESYREL) 5-18 by mouth [facility] - 50 MG 18:46: nightly. Medical tablet 23 [place] montelukast Yes 10mg QD Take [address] (SINGULAIR) 5-18 by mouth Luke s - 10 mg 18:46: every Medical tablet 23 morning. [place] glimepiride Yes 1mg QD Take [address] (AMARYL) 1 5-18 by mouth [facility] - MG tablet 18:46: every Medical 23 evening. [place] furosemide Yes 20mg QD Take [address] (LASIX) 40 5-18 by mouth [facility] - MG tablet 18:46: every Medical 23 morning . [place] amitriptyli Yes 25mg QD Take [address] ne (ELAVIL) 5-18 by mouth Luke s - 25 MG 18:46: nightly. Medical tablet 23 [place] carvedilol Yes 6.25mg Q.5D Take 6.[address] (COREG) 5-18 mg by [facility] - 6.25 MG 18:46: mouth 2 Medical tablet 23 (two) Center times daily. divalproex Yes 1000mg Q.5D Take 1,[address] (DEPAKOTE) 5-18 mg by [facility] - 500 MG EC 18:46: mouth 2 Medic al tablet 23 (two) Center times daily . atorvastati Yes 10mg QD Take [address] n (LIPITOR) 5-18 by mouth Luke s - 10 MG 18:46: daily. Medical tablet 23 [place] levothyroxi Yes 150ug Take [address] ne 5-18 mcg by [facility]ukes - (SYNTHROID, 18:46: mouth Medic al LEVOTHROID) 23 Every Center 150 MCG morning on tablet an empty stomach. potassium Yes 10meq QD Take [address] chloride 5-18 mEq by [facility] - (KLOR-CON) 18:46: mouth Medica l 10 MEQ CR 23 every Center tablet morning. venlafaxine Yes 150mg QD Take [address] (EFFEXOR-XR 5-18 mg by [facility] - ) 150 MG 24 18:46: mouth Medic al hr capsule 23 daily. [place] meloxicam Yes 15mg QD Take [address] (MOBIC) 7.5 5-18 by mouth Luke s - MG tablet 18:46: daily . Medic al 23 [place] ferrous 0 Yes 324mg Take 324 [facility] gluconate 5-18 mg by [facility] - (FERGON) 18:46: mouth Medical 324 MG 23 daily with Center tablet breakfast. cholecalcif 20190 Yes 1000U QD Take 1,[address] kyle, 5-18 Units by [facility] - vitamin D3, 18:46: mouth Medic al 2,000 unit 23 daily. [place] Tab ondansetron Yes Take by [facility] (ZOFRAN) 8 5-18 mouth. [facility] - MG tablet 18:46: Medical 23 [place] ciprofloxac Yes 500mg Take [address] in HCl 5-18 mg by [facility] - (CIPRO) 500 18:46: mouth. Medi macario MG tablet 23 [place] empaglifloz Yes 10mg QD Take [address] in 5-18 by mouth [facility]ukes - (JARDIANCE) 18:46: daily. Medi macario 10 mg 23 [place] tablet Bactrim Bactrim 2017- No Deepthi 1 tablet [place] 11-14 [place] for ENT 00:00: 00:00 00 :00 Bactroban Bactroban 2017- No Deepthi 1 [place] 11-08 [place] applicatio for EN T 00:00: 00:00 n to 00 :00 affected area traMADol Yes 50mg Q6H Take 50 mg Met hodi (ULTRAM) 50 8-[address] mg tablet 16:01: every 6 Hospi ta 07 (six) l hours as needed for moderate pain. atorvastati Yes 10mg QD Take 10 mg Methodi n (LIPITOR) 8-[address] 10 MG 16:01: every Hospita tablet 07 evening. l carvedilol Yes 6.25mg Q.5D Take 6.25 [facility] (COREG) 8-[address] 6.25 MG 16:01: mouth 2 Hospita tablet 07 (two) l times a day with meals. furosemide Yes 80mg QD Take 80 mg M ethodi (LASIX) 80 8-[address] MG tablet 16:01: daily. Hospit a 07 l chlorproMAZ Yes 25mg QD Take 25 mg [facility]i INE 8-[address] (THORAZINE) 16:01: nightly. Ho spita 25 MG 07 l tablet divalproex Yes 1000mg QD Take 1,000 [facility] (DEPAKOTE) 8-[address] 500 MG EC 16:01: mouth Hospita tablet 07 nightly. l levothyroxi Yes 200ug QD Take 200 M ethodi ne 8-[address] (SYNTHROID, 16:01: mouth Hospi ta LEVOTHROID) 07 every l 200 MCG morning. tablet metFORMIN Yes 500mg Q.5D Take 500 Met hodi (GLUCOPHAGE 8-[address] ) 500 MG 16:01: mouth 2 Hospit a tablet 07 (two) l times a day with meals. potassium Yes 10meq QD Take 10 Meth ronit chloride 8-[address] (K-DUR,KLOR 16:01: mouth Hospi ta -CON) 10 07 daily. l MEQ CR tablet VENLAFAXINE Yes 150mg QD Take 150 M ethodi HCL 8-[address] (VENLAFAXIN 16:01: mouth Hospi ta E ORAL) 07 daily. l MULTIVITAMI Yes 1{tbl} QD Take 1 Me thodi N ORAL 8-[address] 16:01: mouth Hospita 07 daily. l PHENTERMINE Yes Take by Met hodi HCL 8-[address] (PHENTERMIN 16:01: Hospit a E ORAL) 07 l Medrol Medrol Yes Deepthi as Center (Ranjeet) [...] Deepthi 1 tablet Center HCl HCl Clementine with meals for ENT Procedures This patient has no known procedures. Plan of Care Planned Activity Planned Date Details Comments Source Future Scheduled 2021-06-[address] [facility] - Test 00:00:00 (Season Ended) [code = Medic al Center INFLUENZA VACCINE (Season Ended)] Future Scheduled 2020-10-[address] [facility] - Test 00:00:00 (12+) [code = Medical Center DEPRESSION SCREENING (12+)] Future Scheduled 2019-12-[address] [facility] - Test 00:00:00 malignant neoplasm of [facility] breast (procedure) [code = 773274742] Future Scheduled 2019 PNEUMOCOCCAL 65+ Y[facility] - Test 00:00:00 (1 of 1 - Medical Center [id number]) [code = PNEUMOCOCCAL 65+ YRS (1 of 1 - [id number])] Future Scheduled 2019-08-[address] Estella kes - Test 00:00:00 [facility] Center (procedure) [code = 67883953] Future Scheduled 2004 SHINGLES VACCINES ([address] [facility] - Test 00:00:00 of 2) [code = SHINGLES [facility] Center VACCINES (1 of 2)] Future Scheduled 1973 DTAP/TDAP/TD VACCINES [facility] - Test 00:00:00 (1 - Tdap) [code = Medical C enter DTAP/TDAP/TD VACCINES (1 - Tdap)] Future Scheduled 1972 HEPATITIS C SCREENING [facility] - Test 00:00:00 [code = HEPATITIS C Medical Center SCREENING] Future Scheduled 1966 COVID-19 VACCINE (1) [facility] - Test 00:00:00 [code = COVID-[address] VACCINE (1)] Future Scheduled 1964 DIABETIC EYE EXAM [facility] - Test 00:00:00 [code = DIABETIC EYE Medical Center EXAM] Future Scheduled [address] K[facility]ik es - Test 00:00:00 examination Medical Center (regime/therapy) [code = 100192356] Future Scheduled 1964 Urine screening for [facility] - Test 00:00:00 protein (procedure) Medical Center [code = 364294868] Future Scheduled [address] [facility]ik es - Test 00:00:00 malignant neoplasm of [facility] colon (procedure) [code = 196494734] Future Scheduled 65+ [facility]OCOCCAL [facility] Test VACCINE (1 of 2 - PPSV23) [code = 65+ PNEUMOCOCCAL VACCINE (1 of 2 - PPSV23)] Future Scheduled DIABETES: RETINAL EYE [facility] EX[facility] [code = DIABETES: RETINAL EYE EXAM] Future Scheduled DIABETIC FOOT EX[facility] Test [code = DIABETIC FOOT EXAM] Future Scheduled URINE MICROALBUMIN [facility] Test [code = URINE MICROALBUMIN] Future Scheduled COVID-19 [facility]ACCINE (1) [facility] [code = COVID-19 VACCINE (1)] Future Scheduled Hepatitis C screening [facility] Test (procedure) [code = 584170329] Future Scheduled BREAST CANCER [facility] Test SCREEN[facility] [code = BREAST CANCER SCREENING] Future Scheduled COLONOSCOPY SCREENING [facility] Test [code = COLONOSCOPY SCREENING] Future Scheduled SHINGLES VACCINES (#1) [facility] [code = SHINGLES VACCINES (#1)] Future Scheduled [facility]ACCINE [facility] Test [code = INFLUENZA VACCINE] Encounters Start End Encounter Admission Attending Care Care Encounter Source Date/Time Date/Time Type Type Clinicians Facility Department ID 2020-04-14 Inpatient [facility] PT [id number] 96 [facility] 15:08:00 [facility] 2018-02-07 2018-02-07 Outpatient [facility] [id number] [place] 15:56:00 15:56:00 [facility] 2018-02-07 2018-02-07 Outpatient [facility] [id number] [place] 15:16:00 15:16:00 [facility] 2017-11-28 2017-11-28 Outpatient [facility] [id number] [place] 09:30:00 09:30:00 [facility] 2017-11-18 2017-11-18 Outpatient [facility] [id number] [place] 10:50:00 10:50:00 [facility] 2017-11-15 2017-11-15 Outpatient [facility] [id number] [place] 09:26:00 09:26:00 [facility] Results Test Description Test Time Test Comments Results Result Comments Source BLOOD CULTURE 2019-03-04 20:01:00 Test Item Value Reference Range Interpretation Comme nts CULTURE (BEAKER) (test code = 1095) No growth in 5 days BLOOD [id number] 20:01:00 Test Item Value Reference Range Interpretation Comments CULTURE ([facility]) (test No growth in 5 days code = 1095) POCT-GLUCOSE [id number] 11:57:00 Test Item Value Reference Range Interpretation Comments POC-GLUCOSE METER 117 mg/dL 70-110 H TESTED AT [facility] 67 ([facility]) (test code = MORENITA Schmidt [place] 1538) [address] POCT-GLUCOSE [id number] 07:57:00 Test Item Value Reference Range Interpretation Comments POC-GLUCOSE METER 110 mg/dL 70-110 TESTED AT [facility] 6720 ([facility]) (test code = MORENITA Schmidt [place] 1538) [address] POCT-GLUCOSE [id number] 21:11:00 Test Item Value Reference Range Interpretation Comments POC-GLUCOSE METER 100 mg/dL 70-110 TESTED AT [place] [address] ([facility]) (test code = MORENITA Schmidt [facility] 1538) [id number] MR, SPINE, LUMBAR, WITHOUT [id number] 20:59:00FINAL REPORT MR, SPINE, LUMBAR, WITHOUT CONTRAST [...] MDReport Verified Date/Time: 03/02/2019 20:59:13 Reading Location: [facility] Radiology Reading Room POCT-GLUCOSE [id number] 18:37:00 Test Item Value Reference Range Interpretation Comments POC-GLUCOSE METER 130 mg/dL 70-110 H TESTED AT [place] [address] ([facility]) (test code = [facility] [employer] [facility] 1538) [address] POCT-GLUCOSE [id number] 12:03:00 Test Item Value Reference Range Interpretation Comments POC-GLUCOSE METER 105 mg/dL 70-110 TESTED AT [place] [address] ([facility]) (test code = [facility] [employer] [facility] 1538) [address] POCT-GLUCOSE [id number] 06:55:00 Test Item Value Reference Range Interpretation Comments POC-GLUCOSE METER 126 mg/dL 70-110 H TESTED AT [place] [address] ([facility]) (test code = Social IQ (Social Influence Quotient) [facility] 1538) [address] POCT-GLUCOSE [id number] 20:31:00 Test Item Value Reference Range Interpretation Comments POC-GLUCOSE METER 98 mg/dL 70-110 TESTED AT [place] [address] ([facility]) (test code = Social IQ (Social Influence Quotient) [facility] [id number] [address]38) CT, SPINE, LUMBAR, WO [id number] 19:49:00FINAL REPORT CT, SPINE, LUMBAR, WO CONTRAST [...] stenosis at L5-S1. Signed: JR Henry Robert [facility] Verified Date/Time: 03/01/2019 19:49:57 Reading Location: [address] Neuro Reading Room POCT-GLUCOSE [id number] 16:35:00 Test Item Value Reference Range Interpretation Comments POC-GLUCOSE METER 172 mg/dL 70-110 H TESTED AT [place] [address] ([facility]) (test code = MORENITA Schmidt [facility] 1538) [address] POCT-GLUCOSE [id number] 11:56:00 Test Item Value Reference Range Interpretation Comments POC-GLUCOSE METER 202 mg/dL 70-110 H TESTED AT [place] [address] ([facility]) (test code = [facility] 1538) [address] POCT-GLUCOSE [id number] 07:34:00 Test Item Value Reference Range Interpretation Comments POC-GLUCOSE METER 135 mg/dL 70-110 H TESTED AT [place] [address] ([facility]) (test code = [facility] 1538) [address] CALCIUM, [id number] 06:34:00 Test Item Value Reference Range Interpretation Comments CALCIUM IONIZED (BEAKER) (test 1.06 mmol/L 1.12-1.27 L code = 698) PH, BLOOD (BEAKER) (test code = 7.37 1810) [id number] 05:46:00 Test Item Value Reference Range Interpretation Comments MAGNESIUM (BEAKER) (test code = 2.1 mg/dL 1.6-2.6 627) BASIC METABOLIC [id number] 05:46:00 Test Item Value Reference Range Interpretation [...] PATIEN TS. CBC W/PLT COUNT & AUTO [id number] 05:29:00 Test Item Value Reference Range Interpretation [...] (BEAKER) (test code = 2801) LACTIC ACID, [id number] 05:29:00 Test Item Value Reference Range Interpretation Comments LACTATE BLOOD VENOUS (2) (BEAKER) 1.1 mmol/L 0.5-2.2 (test code = 2872) POCT-GLUCOSE [id number] 20:48:00 Test Item Value Reference Range Interpretation Comments POC-GLUCOSE METER 109 mg/dL 70-110 TESTED AT [facility] 6720 (BEAKER) (test code = MORENITA RAM 1538) [address] POCT-GLUCOSE [id number] 16:53:00 Test Item Value Reference Range Interpretation Comments POC-GLUCOSE METER 117 mg/dL 70-110 H TESTED AT [facility] 6720 (BEAKER) (test code = MORENITA Schmidt [place] 1538) [address] POCT-GLUCOSE [id number] 11:55:00 Test Item Value Reference Range Interpretation Comments POC-GLUCOSE METER 173 mg/dL 70-110 H TESTED AT [facility] 6720 (BEAKER) (test code = MORENITA Schmidt [place] 1538) [address] POCT-GLUCOSE [id number] 08:46:00 Test Item Value Reference Range Interpretation Comments POC-GLUCOSE METER 120 mg/dL 70-110 H TESTED AT [facility] 6720 (BEAKER) (test code = MORENITA Schmidt [place] 1538) [address] HEMOGLOBIN [id number] 07:05:00 Test Item Value Reference Range Interpretation Comments HEMOGLOBIN A1C (BEAKER) (test code = 6.9 % 4.3-6.1 H 368) T4, [id number] 06:32:00 Test Item Value Reference Range Interpretation Comments FREE T4 (BEAKER) (test code = 655) 1.00 ng/dL 0.70-1.48 TSH/FREE T4 IF [id number] 05:26:00 Test Item Value Reference Range Interpretation Comments THYROID STIMULATING HORMONE 5.10 uIU/mL 0.35-4.94 H (BEAKER) (test code = 772) VITAMIN B12 AND [id number] 05:20:00 Test Item Value Reference Range Interpretation Comments VITAMIN B12 (BEAKER) (test code = 1226 pg/mL 213-816 H 774) FOLATE (BEAKER) (test code = 362) 14.8 ng/mL >=7.0 BASIC METABOLIC [id number] 05:17:00 Test Item Value Reference Range Interpretation [...] NOT APPLICABLE FOR DIALYSIS PATIEN TS. CALCIUM, [id number] 05:14:00 Test Item Value Reference Range Interpretation Comments CALCIUM IONIZED (BEAKER) (test 0.93 mmol/L 1.12-1.27 L code = 698) PH, BLOOD (BEAKER) (test code = 7.49 1810) [id number] 04:59:00 Test Item Value Reference Range Interpretation Comments PHOSPHORUS (BEAKER) (test code = 4.2 mg/dL 2.3-4.7 604) [id number] 04:59:00 Test Item Value Reference Range Interpretation Comments MAGNESIUM (BEAKER) (test code = 2.0 mg/dL 1.6-2.6 627) LACTIC ACID, [id number] 04:55:00 Test Item Value Reference Range Interpretation Comments LACTATE BLOOD VENOUS (2) (BEAKER) 1.8 mmol/L 0.5-2.2 (test code = 2872) CBC W/PLT COUNT & AUTO [id number] 04:35:00 Test Item Value Reference Range Interpretation [...] PERCENT (BEAKER) (test code = 2801) POCT-GLUCOSE [id number] 21:40:00 Test Item Value Reference Range Interpretation Comments POC-GLUCOSE METER 133 mg/dL 70-110 H TESTED AT [facility] 6720 (BEAKER) (test code = MORENITA RAM 1538) [address] LACTIC ACID, [id number] 19:18:00 Test Item Value Reference Range Interpretation Comments LACTATE BLOOD VENOUS (2) (BEAKER) 3.6 mmol/L 0.5-2.2 H (test code = 2872) POCT-GLUCOSE [id number] 18:17:00 Test Item Value Reference Range Interpretation Comments POC-GLUCOSE METER 95 mg/dL 70-110 TESTED AT [facility] 6720 (BREE) (test code = [place] [address] 1538) LACTIC ACID, [id number] 15:26:00 Test Item Value Reference Range Interpretation Comments LACTATE BLOOD VENOUS 1.7 mmol/L 0.5-2.2 Specime n slightly (2) (BREE) (test hemolyzed code = 2872) [id number] 14:38:00 Test Item Value Reference Range Interpretation Comments PROCALCITONIN (BREE) (test code 0.05 ng/mL <0.05 H = 3036) SEPSIS RISK (ng/mL)Low: 0.05-0.50Intermediate: 0.51-2.00High: >=2.01U/S, [id number] 14:19:00Reason for exam:->CYSTITISFINAL REPORT INDICATION:Urinary tract infection [...] visualized.Patient is status post hysterectomy. Signed:Ra Smallwood [facility] Verified Date/Time: 02/27/2019 14:19:25 Reading Location: [address] Ultrasound Reading Room U/S, RENAL, [id number] 14:19:00Reason for exam:->CYSTITISFINAL REPORT INDICATION:Urinary tract infection [...] MDReport Verified Date/Time: 02/27/2019 14:19:25 Reading Location: [facility] [id number] Ultrasound Reading Room ALYSIS W/ REFLEX URINE [id number] 12:20:00 Test Item Value Reference Range Interpretation [...] SOURCE(BEAKER) (test code = 2795) HEPATIC FUNCTION [id number] 12:11:00 Test Item Value Reference Range Interpretation [...] = 15 U/L 6-55 347) BASIC METABOLIC [id number] 12:11:00 Test Item Value Reference Range Interpretation [...] APPLICABLE FOR DIALYSIS PATIEN TS. LACTIC ACID, [id number] 12:09:00 Test Item Value Reference Range Interpretation Comments LACTATE BLOOD VENOUS 2.3 mmol/L 0.5-2.2 H Specime n slightly (2) (BEAKER) (test hemolyzed code = 2913) KETONE, [id number] 11:53:00 Test Item Value Reference Range Interpretation Comments KETONES, BLOOD (BEAKER) (test code 0.1 mmol/L <0.4 = 1103) CBC W/PLT COUNT & AUTO [id number] 11:53:00 Test Item Value Reference Range Interpretation [...] code = 2801) WOUND CULTURE + GRAM [id number] 18:38:00 Test Item Value Reference Range Interpretation Comments CULTURE (BEAKER) (test code 1+ Skin batsheva = 1095) GRAM STAIN RESULT (BEAKER) No WBCs (test code = 1123) GRAM STAIN RESULT (BEAKER) No organisms seen (test code = 17670) AFB CULTURE + [id number] 14:57:00 Test Item Value Reference Range Interpretation Comments CULTURE (BEAKER) (test No acid-fast bacilli code = 1095) isolated in 42 days AFB SMEAR (BEAKER) No acid fast bacilli (test code = 994) seen SURGICALLY OBTAINED CULTURE + GRAM [id number] 10:13:00 Test Item Value Reference Range Interpretation Comments CULTURE (BEAKER) (test No growth code = 1095) GRAM STAIN RESULT <1+ White blood cells (BEAKER) (test code = seen 1123) GRAM STAIN RESULT No organisms seen (BEAKER) (test code = 81809) MM, U/S, BREAST, UNILATERAL, [id number] 16:18:00Reason for Exam:->r21 #[id number] - MM, U/S, BREAST, UNILATERAL, LEFTULTRASOUND OF [...] of malignancy. Macie Diop M.D. pth/:12/08/2017 16:18:20 [place]erry Captain: hPuong Pugh Skin Lap [place], [facility] Ultrasound BI-RADS: 2 Benign 75721 MM, DIGITAL MAMMO, DIAGNOSTIC, BILATERAL INCLUDING [id number] 16:16:00Reason for Exam:- >Encounter for screening mammogram for malugnant neoplasm of breastMRN#: [id number] - MM, DIGITAL MAMMO, DIAGNOSTIC, BILATERAL INCLUDING [...] is recommended. Macie Diop M.D. pth/:12/08/2017 16:16:27 [place] Captain: Ashely ANTHONY)(M), [facility] Mammogram BI-RADS: 2 Benign [id number] BLOOD [id number] 05:01:00 Test Item Value Reference Range Interpretation Comments CULTURE (BEAKER) (test No growth in 5 days code = 1095) BLOOD [id number] 23:00:00 Test Item Value Reference Range Interpretation Comments CULTURE (BEAKER) (test No growth in 5 days code = 1095) POCT-GLUCOSE [id number] 07:45:00 Test Item Value Reference Range Interpretation Comments POC-GLUCOSE METER 125 mg/dL 70-110 H TESTED AT [facility] 6720 (BEAKER) (test code = [place] 1538) [address] CALCIUM, [id number] 06:18:00 Test Item Value Reference Range Interpretation Comments CALCIUM IONIZED (BEAKER) (test 1.10 mmol/L 1.12-1.27 L code = 698) PH, BLOOD (BEAKER) (test code = 7.36 1810) [id number] 06:10:00 Test Item Value Reference Range Interpretation Comments PHOSPHORUS (BEAKER) (test code = 4.3 mg/dL 2.3-4.7 604) [id number] 06:10:00 Test Item Value Reference Range Interpretation Comments MAGNESIUM (BEAKER) (test code = 1.7 mg/dL 1.6-2.6 627) BASIC METABOLIC [id number] 06:10:00 Test Item Value Reference Range Interpretation [...] PATIEN TS. CBC W/PLT COUNT & AUTO [id number] 05:28:00 Test Item Value Reference Range Interpretation [...] PERCENT (BEAKER) (test code = 2801) POCT-GLUCOSE [id number] 21:40:00 Test Item Value Reference Range Interpretation Comments POC-GLUCOSE METER 138 mg/dL 70-110 H TESTED AT [place] [address] ([facility]) (test code = [facility] 1538) [address] POCT-GLUCOSE [id number] 18:56:00 Test Item Value Reference Range Interpretation Comments POC-GLUCOSE METER 98 mg/dL 70-110 TESTED AT [place] [address] ([facility]) (test code = [facility] [address] 1538) POCT-GLUCOSE [id number] 14:49:00 Test Item Value Reference Range Interpretation Comments POC-GLUCOSE METER 92 mg/dL 70-110 TESTED AT [place] [address] ([facility]) (test code = [facility] [address] 1538) VANCOMYCIN LEVEL, [id number] 11:12:00 Test Item Value Reference Range Interpretation Comments VANCOMYCIN TROUGH ([facility]) (test 16.1 ug/mL 10.0-20.0 code = 522) POCT-GLUCOSE [id number] 09:35:00 Test Item Value Reference Range Interpretation Comments POC-GLUCOSE METER 123 mg/dL 70-110 H TESTED AT [facility] 6720 (BEAKER) (test code = [place] 1537) [id number] CBC W/PLT COUNT & AUTO [id number] 09:02:00 Test Item Value Reference Range Interpretation Comments WHITE BLOOD CELL COUNT (BEAKER) 6.2 K/ L 3.5-10.5 (test code = 775) RED BLOOD CELL COUNT (BEAKER) 3.72 M/ L 3.93-5.22 L (test code = 761) HEMOGLOBIN (BEAKER) (test code = 11.5 GM/DL 11.2-15.7 410) HEMATOCRIT (BEAKER) (test code = 36.5 % 34.1-44.9 411) MEAN CORPUSCULAR VOLUME (BEAKER) 98.1 fL 79.4-94.8 H (test code = [...] (BEAKER) (test code = 2801) VITAMIN D, [id number] 07:00:00 Test Item Value Reference Range Interpretation Comments VITAMIN D 25-OH (BEAKER) (test 22.5 ng/mL 6.6-49.9 code = 2764) Effective 07/27/2017: Reference Range ChangeNew: 6.6-49.9 ng/mL Previous: 13.0-47.8 ng/mLRecommended Vitamin D Target Range: 30.0-40.0 ng/mLPHOSPHORUS 2017-12-02 06:39:00 Test Item Value Reference Range Interpretation Comments PHOSPHORUS (BEAKER) (test code = 4.6 mg/dL 2.3-4.7 604) [id number] 06:39:00 Test Item Value Reference Range Interpretation Comments MAGNESIUM (BEAKER) (test code = 1.7 mg/dL 1.6-2.6 627) BASIC METABOLIC [id number] 06:39:00 Test Item Value Reference Range Interpretation [...] (BEAKER) (test code = 652) CALCIUM (BEAKER) 9.3 mg/dL 8.4-10.2 (test code = 697) EGFR (BEAKER) (test 78 mL/min/1.73 ESTIMA ELVA GFR IS code = 1092) sq m NOT ACCURATE CREATININE CLEARANCE IN PREDICTING GLOMERULAR FILTRATION RATE . ESTIMATED GFR I S NOT APPLICABLE FOR DIALYSIS PATIEN TS. CALCIUM, [id number] 06:30:00 Test Item Value Reference Range Interpretation Comments CALCIUM IONIZED ([facility]) (test 0.87 mmol/L 1.12-1.27 L code = 698) PH, BLOOD ([facility]) (test code = 7.37 1810) POCT-GLUCOSE [id number] 20:32:00 Test Item Value Reference Range Interpretation Comments POC-GLUCOSE METER 173 mg/dL 70-110 H TESTED AT [place] [address] ([facility]) (test code = [facility] R[facility] 1538) [id number] POCT-GLUCOSE [id number] 18:41:00 Test Item Value Reference Range Interpretation Comments POC-GLUCOSE METER 121 mg/dL 70-110 H TESTED AT [place] [address] ([facility]) (test code = [facility] 1538) [id number] HEMOGLOBIN [id number] 14:36:00 Test Item Value Reference Range Interpretation Comments HEMOGLOBIN A1C ([facility]) (test code = 6.6 % 4.3-6.1 H 368) POCT-GLUCOSE [id number] 12:36:00 Test Item Value Reference Range Interpretation Comments POC-GLUCOSE METER 139 mg/dL 70-110 H TESTED AT [place] [address] ([facility]) (test code = [facility] 1538) [id number] POCT-GLUCOSE [id number] 08:34:00 Test Item Value Reference Range Interpretation Comments POC-GLUCOSE METER 125 mg/dL 70-110 H TESTED AT [place] [address] ([facility]) (test code = [facility] 1538) [address] CBC W/PLT COUNT & AUTO [id number] 07:16:00 Test Item Value Reference Range Interpretation Comments WHITE BLOOD CELL COUNT ([facility]) 7.6 K/ L 3.5-10.5 (test code = 775) RED BLOOD CELL COUNT ([facility]) 3.58 M/ L 3.93-5.22 L (test code = 761) HEMOGLOBIN ([facility]) (test code = 11.2 GM/DL 11.2-15.7 410) HEMATOCRIT ([facility]) (test code = 35.6 % 34.1-44.9 411) [...] (test code = 1351) TSH/FREE T4 IF [id number] 06:48:00 Test Item Value Reference Range Interpretation Comments THYROID STIMULATING HORMONE 4.13 uIU/mL 0.35-4.94 (BEAKER) (test code = 772) [id number] 06:25:00 Test Item Value Reference Range Interpretation Comments PHOSPHORUS (BEAKER) (test code = 3.9 mg/dL 2.3-4.7 604) [id number] 06:25:00 Test Item Value Reference Range Interpretation Comments MAGNESIUM (BEAKER) (test code = 1.8 mg/dL 1.6-2.6 627) BASIC METABOLIC [id number] 06:25:00 Test Item Value Reference Range Interpretation [...] NOT APPLICABLE FOR DIALYSIS PATIEN TS. LIPID [id number] 06:25:00 Test Item Value Reference Range Interpretation [...] Borderline 130-159 High 160-189 Very High >=190CALCIUM, [id number] 06:02:00 Test Item Value Reference Range Interpretation Comments CALCIUM IONIZED (BEAKER) (test 0.84 mmol/L 1.12-1.27 L code = 698) PH, BLOOD (BEAKER) (test code = 7.40 1810) POCT-GLUCOSE [id number] 23:04:00 Test Item Value Reference Range Interpretation Comments POC-GLUCOSE METER 92 mg/dL 70-110 TESTED AT [facility] 6720 (BEAKER) (test code = [place] [place] [facility] [address] 1538) BASIC METABOLIC [id number] 16:03:00 Test Item Value Reference Range Interpretation [...] PATIEN TS. CBC W/PLT COUNT & AUTO [id number] 15:58:00 Test Item Value Reference Range Interpretation [...] (test code = 2801) RAD, CHEST, 2 [id number] 15:19:00Reason for exam:->cpShould this be performed at the bedside?->NoFINAL REPORT Chest two views compared to November 14, 2017 Discussion: Lungs clear. Heart size normal. No effusion or pneumothorax. There are right shoulder degenerative changes. W idened left AC joint may reflect previous surgery or trauma. Signed: [place] [facility] Verified Date/Time: 11/30/2017 15:19:59 Reading Location: [address] Consult Reading Room SINUS CULTURE + GRAM [id number] 08:42:00 Test Item Value Reference Interpretation Comments [...] No organisms (BEAKER) (test code = seen 933012) No Normal respiratory batsheva presentHEPATIC FUNCTION [id number] 14:45:00 Test Item Value Reference Range Interpretation [...] = 9 U/L 6-55 347) BASIC METABOLIC [id number] 14:45:00 Test Item Value Reference Range Interpretation [...] PATIEN TS. CBC W/PLT COUNT & AUTO [id number] 14:12:00 Test Item Value Reference Range Interpretation [...] (test code = 2801) RAD, CHEST, 2 [id number] 13:06:00Reason for Exam:->[id number] REPORT HISTORY : R05. Comparison: None Comment: Two views of the chest,PA and lateral, were obtained. The cardiac silhouette is within normal limits. There is no pleural effusion, pneumothorax or infiltrate. No lytic or blastic abnormalities. Fixation hardware is seen in the cervical spine. Multilevel degenerative disc changes of the thoracic spine are seen. Impression: No acute cardiothoracic abnormalities. Signed: [facility] Verified Date/Time: 11/14/2017 13:06:08 Reading Location: [address] Radiology Reading Room CT ABDOMEN AND [...]
[2021-06-18] MEDS ORDERED: KETOROLAC 30 MG/ML INJ ONE (01:50)
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
[2021-06-18 03:03] VITALS: TEMP 98.1; O2SAT 97
[2021-06-18 03:04] VITALS: BP 123/99
--- NOTE | 2021-06-18 08:42 | RAD REPORT ---
EXAM DESCRIPTION: RAD - Pelvis - 06/18/2021 2:56 am CLINICAL HISTORY: left hip pain COMPARISON: None FINDINGS: Limited by patient's body habitus with underpenetration that obscures the fine bony detail . No pelvic or hip fracture is identified. Nonspecific bowel gas pattern. IMPRESSION: No pelvic or hip fracture is identified.
== END 2021-06-18 02:56 | disposition home or self-care (01) ==
LOC: ER 01:01
DX: S29.012A Strain of muscle and tendon of back wall of thorax, initial encounter (principal); S76.012A Strain of muscle, fascia and tendon of left hip, initial encounter; V47.5XXA Car driver injured in collision with fixed or stationary object in traffic accident, initial encounter
CPT/HCPCS: 72170; 96372; 99283

== ENCOUNTER 2021-07-08 16:34 | Emergency (ER) | payer OTHER ==
[2021-07-08] MEDS ORDERED: ACETAMINOPHEN 325 MG TABLET ONE (18:26)
[2021-07-08 18:29] LABS: Basophils % 1.1 % (0-1.3); Hematocrit 38.9 % (36.0-45.0); Lymphocytes % 37.2 % (15.3-44.8); RBC Red Blood Cell Count 3.95 M/uL (3.86-4.86)
[2021-07-08 19:46] LABS: Potassium 4.3 mmol/L (3.5-5.1)
[2021-07-08] MEDS ORDERED: DIPHENHYDRAMINE 50 MG/ML VIAL ONE (20:31)
[2021-07-08] MEDS ORDERED: CASIRIVIMAB/IMDEVIMAB 10 ML VIAL ONE (20:32)
[2021-07-08] MEDS ORDERED: NA CHLORIDE 0.9% 250 ML ONE (20:32)
--- NOTE | 2021-07-08 23:31 | ER ---
Nurse's Notes [facility] Name: Lara Liu Age: 65 yrs Sex: Female : 1955 Arrival Date: 07/08/2021 Time: 16:35 Bed 15 Private MD: Diagnosis: Coronavirus infection, unspecified Presentation: 07/08 16:39 Coronavirus screen: Vaccine status: Patient reports receiving the 2nd dose of the covid es2 vaccine. Client presents with at least one sign or symptom that may indicate coronavirus-19. Client reports previous positive COVID test result. Ebola Screen: Patient negative for fever greater than or equal to 101.5 degrees Fahrenheit, and additional compatible Ebola Virus Disease symptoms Patient denies exposure to infectious person. Patient denies travel to an Ebola-affected area in the 21 days before illness onset. No symptoms or risks identified at this time. 16:44 Chief complaint: EMS states: Pt has received COVID vaccine few months back. Pt tested es2 positive on Tuesday. Some SOB with ADLs. Initial Sepsis Screen: Does the patient meet any 2 criteria? No. Patient's initial sepsis screen is negative. Does the patient have a suspected source of infection? No. Patient's initial sepsis screen is negative. Risk Assessment: Do you want to hurt yourself or someone else? Patient reports desire/thoughts of hurting themselves or someone else. Provider notified. Onset of symptoms was July 07, 2021. 16:44 Acuity: CRIS 2 es2 16:44 Method Of Arrival: EMS: [facility] es2 Triage Assessment: 16:36 General: Appears obese, well developed, Behavior is cooperative, appropriate for age. es2 Pain: Denies pain. EENT: No signs and/or symptoms were reported regarding the EENT system. Neuro: Level of Consciousness is awake, alert, obeys commands, Oriented to person, place, time, situation, Appropriate for age Speech is normal. Cardiovascular: Capillary refill < 3 seconds Patient's skin is warm and dry. Respiratory: Airway is patent Respiratory effort is even, unlabored, Respiratory pattern is regular. GI: No signs and/or symptoms were reported involving the gastrointestinal system. : No signs and/or symptoms were reported regarding the genitourinary system. Derm: Skin is dry. Musculoskeletal: Capillary refill < 3 seconds. - Immunization history:: Adult Immunizations up to date, Client reports receiving the 2nd dose of the Covid vaccine. - Social history:: Smoking status: Patient denies any tobacco usage or history of. Patient/guardian denies using. Screenin:44 Abuse screen: Denies threats or abuse. Denies injuries from another. Nutritional es2 screening: No deficits noted. Tuberculosis screening: No symptoms or risk factors identified. Fall Risk Mental Status- Oriented to own ability (0 pts). Assessment: 19:00 Reassessment: Patient appears in no apparent distress at this time. Patient and/or ms4 family updated on plan of care and expected duration. Pain level reassessed. Patient is alert, oriented x 3, equal unlabored respirations, skin warm/dry/pink. 20:00 Reassessment: Patient appears in no apparent distress at this time. Patient and/or ms4 family updated on plan of care and expected duration. Pain level reassessed. Patient is alert, oriented x 3, equal unlabored respirations, skin warm/dry/pink. 21:00 Reassessment: Patient appears in no apparent distress at this time. Patient and/or ms4 family updated on plan of care and expected duration. Pain level reassessed. Patient is alert, oriented x 3, equal unlabored respirations, skin warm/dry/pink. 22:00 Reassessment: Patient appears in no apparent distress at this time. Patient and/or ms4 family updated on plan of care and expected duration. Pain level reassessed. Patient is alert, oriented x 3, equal unlabored respirations, skin warm/dry/pink. 23:00 Reassessment: Patient appears in no apparent distress at this time. Patient and/or jb4 family updated on plan of care and expected duration. Pain level reassessed. Patient is alert, oriented x 3, equal unlabored respirations, skin warm/dry/pink. Vital Signs: 16:43 BP 122 / 70; Pulse 69; Resp 18; Temp 98.2(O); Pulse Ox 92% ; es2 16:44 BP 122 / 78; Pulse 69; Resp 18; Pulse Ox 92% ; es2 17:59 BP 102 / 49; Pulse 64; Resp 20; Pulse Ox 91% on R/A; es2 19:00 BP 111 / 75; Pulse 64; Resp 16; Pulse Ox 95% on R/A; jb4 20:00 BP 100 / 70; Pulse 64; Resp 16; Pulse Ox 95% on R/A; jb4 21:00 BP 122 / 52; Pulse 65; Resp 16; Pulse Ox 97% on R/A; jb4 22:00 BP 112 / 68; Pulse 64; Resp 18; Pulse Ox 99% on R/A; jb4 07/09 00:11 BP 146 / 82; Pulse 78; Resp 18; Pulse Ox 95% on R/A; oe ED Course: 07/08 16:35 Patient arrived in ED. am2 16:36 Afshan Coleman, LUZ ELENA is Primary Nurse. es2 16:36 Beau Guzmán PA is PHCP. [facility] 16:36 Suze Connor MD is Attending Physician. [facility] 16:46 Triage completed. es2 16:46 Arm band placed on. es2 16:46 Patient has correct armband on for positive identification. Bed in low position. Call es2 light in reach. Side rails up X2. 18:14 D-Dimer Sent. es2 18:14 BMP Sent. es2 18:14 CBC with Diff Sent. es2 19:56 Inserted saline lock: 22 gauge in right antecubital area, using aseptic technique. jb4 07/09 00:17 No provider procedures requiring assistance completed. IV discontinued, intact, jb4 bleeding controlled, No redness/swelling at site. Pressure dressing applied. Administered Medications: 07/08 18:14 Drug: Tylenol 650 mg Route: PO; es2 20:00 Follow up: Response: No adverse reaction jb4 20:13 Drug: Benadryl (diphenhydrAMINE) 12.5 mg Route: IVP; Site: right antecubital; jb4 20:45 Follow up: Response: No adverse reaction jb4 21:04 Drug: Casirivimab-Imdevimab Dose Pack 120 mg/mL-120 mg/mL (EUA) 1 application Route: kg IV; Rate: calculated rate; Site: right antecubital; 22:04 Follow up: Response: No adverse reaction; IV Status: Completed infusion; IV Intake: jb4 260ml Intake: 22:04 IV: 260ml; Total: 260ml. jb4 Outcome: 23:31 Discharge ordered by . [facility] 07/09 00:17 Discharged to home via ambulance. jb4 Condition: stable Discharge instructions given to patient, Instructed on discharge instructions, follow up and referral plans. Demonstrated understanding of instructions, follow-up care. 00:28 Patient left the ED. jb4 Signatures: Beau Guzmán PA PA jmm Bryson, James, RN RN jb4 Pedro Kwon Amanda am2 Coral Loaiza RN RN Tran Gonzalez RN RN ms4 Afshan Coleman RN RN es2
--- NOTE | 2021-07-08 23:31 | EDPHYS ---
Physician Documentation [facility] Name: Lara Liu Age: 65 yrs Sex: Female : 1955 Arrival Date: 07/08/2021 Time: 16:35 Bed 15 Private MD: ED Physician Suze Connor HPI: 07/08 18:42 This 65 yrs old Female presents to ER via EMS with complaints of shortness of jmm breath. 18:42 The patient has shortness of breath at rest. Onset: The symptoms/episode began/occurred jmm gradually, 5 day(s) ago. Duration: The symptoms are continuous, and are steadily getting worse. The patient's shortness of breath is aggravated by nothing, is alleviated by nothing. Associated signs and symptoms: Pertinent positives: non-productive cough, fever. It is unknown whether or not the patient has had similar symptoms in the past. - Immunization history:: Adult Immunizations up to date, Client reports receiving the 2nd dose of the Covid vaccine. - Social history:: Smoking status: Patient denies any tobacco usage or history of. Patient/guardian denies using. ROS: 18:42 Constitutional: Negative for fever, chills, and weight loss, Cardiovascular: Negative jmm for chest pain, palpitations, and edema. 18:42 Respiratory: Positive for cough. 18:42 All other systems are negative. Exam: 18:42 Constitutional: This is a well developed, well nourished patient who is awake, alert, jmm and in no acute distress. Head/Face: atraumatic. Eyes: EOMI, no conjunctival erythema appreciated ENT: Moist Mucus Membranes Neck: Trachea midline, Supple Chest/axilla: Normal chest wall appearance and motion. Cardiovascular: Regular rate and rhythm. No edema appreciated Respiratory: Normal respirations, no respiratory distress appreciated Abdomen/GI: Non distended, soft Back: Normal ROM Skin: General appearance color normal MS/ Extremity: Moves all extremities, no obvious deformities appreciated, no edema noted to the lower extremities Neuro: Awake and alert, normal gait Psych: Behavior is normal, Mood is normal, Patient is cooperative and pleasant Vital Signs: 16:43 BP 122 / 70; Pulse 69; Resp 18; Temp 98.2(O); Pulse Ox 92% ; es2 16:44 BP 122 / 78; Pulse 69; Resp 18; Pulse Ox 92% ; es2 17:59 BP 102 / 49; Pulse 64; Resp 20; Pulse Ox 91% on R/A; es2 19:00 BP 111 / 75; Pulse 64; Resp 16; Pulse Ox 95% on R/A; jb4 20:00 BP 100 / 70; Pulse 64; Resp 16; Pulse Ox 95% on R/A; jb4 21:00 BP 122 / 52; Pulse 65; Resp 16; Pulse Ox 97% on R/A; jb4 22:00 BP 112 / 68; Pulse 64; Resp 18; Pulse Ox 99% on R/A; jb4 07/09 00:11 BP 146 / 82; Pulse 78; Resp 18; Pulse Ox 95% on R/A; oe MDM: 07/08 16:49 Patient medically screened. [facility] 23:30 Data reviewed: vital signs, nurses notes. Counseling: I had a detailed discussion with [facility] the patient and/or guardian regarding: the historical points, exam findings, and any diagnostic results supporting the discharge/admit diagnosis, lab results, radiology results, the need for outpatient follow up, to return to the emergency department if symptoms worsen or persist or if there are any questions or concerns that arise at home. 07/08 16:50 Order name: CBC with Diff; Complete Time: 18:41 [facility] 07/08 16:50 Order name: BMP; Complete Time: 19:47 [facility] 07/08 16:50 Order name: D-Dimer; Complete Time: 18:41 [facility] 07/08 16:50 Order name: Saline Lock; Complete Time: 23:18 [facility] Administered Medications: 18:14 Drug: Tylenol 650 mg Route: PO; es2 20:00 Follow up: Response: No adverse reaction jb4 20:13 Drug: Benadryl (diphenhydrAMINE) 12.5 mg Route: IVP; Site: right antecubital; jb4 20:45 Follow up: Response: No adverse reaction jb4 21:04 Drug: Casirivimab-Imdevimab Dose Pack 120 mg/mL-120 mg/mL (EUA) 1 application Route: kg IV; Rate: calculated rate; Site: right antecubital; 22:04 Follow up: Response: No adverse reaction; IV Status: Completed infusion; IV Intake: jb4 260ml Disposition Summary: 07/08/21 23:31 Discharge Ordered Location: Home [facility] Condition: Stable [facility] Diagnosis - Coronavirus infection, unspecified jmm Followup: [facility] - With: Private Physician - When: 2 - 3 days - Reason: Recheck today's complaints, Continuance of care, Re-evaluation by your physician Discharge Instructions: - Discharge Summary Sheet m - COVID-19 [facility] Forms: - Medication Reconciliation Form [facility] - Thank You Letter [facility] - Antibiotic Education [facility] - Prescription Opioid Use [facility] - SBAR form wg Addendum: 07/11/2021 17:41 Co-signature as Attending Physician, Suze daniel a2 Signatures: Dispatcher [employer] EDBeau Childress PA PA jmm Bryson, James, RN RN jb4 Suze Connor MD MD ma2 Coral Loaiza, LUZ ELENA LAGUNA kg Afshan Coleman RN RN es2
[2021-07-09 00:47] VITALS: TEMP 98.2
[2021-07-09 00:55] VITALS: BP 146/82; O2SAT 95
== END 2021-07-09 00:28 | disposition home or self-care (01) ==
LOC: ER 16:34
DX: U07.1 COVID-19 (principal)
CPT/HCPCS: 96365; 85025; 80048; 36415; 85379; 96375; 99284; J1200; J7050

== ENCOUNTER 2021-11-27 12:08 | Inpatient (IN) | payer OTHER ==
--- OUTSIDE RECORDS SUMMARY | 2021-11-27 12:13 | XMS REPORT | Continuity of Care Document ---
:1955 Author Organization [facility] t Address [address] [place] [address] Care Team Providers Name Role Phone Jonah CHAVEZ Primary Care Physician DR CLEMENTINE Attending Clinician Unavailable Gabriel CHAVEZ Attending Clinician GISELLE GAONA Attending Clinician Unavailable GIOVANNI SPRING Attending Clinician Unavailable DR CLEMENTINE Admitting Clinician Unavailable MARGARITA Admitting Clinician Unavailable Payers Payer Name Policy Type Policy Number Effective Date Expiration Date S ource Problems Condition Condition Condition Status Onset Resolution Last Treating Co mments Source Name Details Category Date Date Treatment Clinician Date Bowel and Bowel and Disease Active 2019-0 Uni vers bladder bladder 5-14 [place]y [place] [facility] Branch Low back Low back Disease Active 2019-0 Unive rs pain pain 5-14 ity of 00:00: [place] [address] Medical Branch Sepsis, Sepsis, Disease Active [facility] due to due to 5-14 [facility] - unspecifie unspecifie 00:00: Me dical d organism d organism 00 Ce nter DM DM Disease Active [facility] (diabetes (diabetes 5-14 Luke s - mellitus), mellitus), 00:00: Me dical type 2 type 2 00 Center Essential Essential Disease Active [facility] hypertensi hypertensi 5-14 Estella kes - on on 00:00: [facility] 00 Center Thyroid Thyroid Disease Active Univers disease disease 2-14 ity of 00:00: [place] [address] Medical Branch Essential Essential Disease Active Uni vers hypertensi hypertensi 2-14 it y of on on 00:00: [place] [address] Medical Branch Morbid Morbid Disease Active Univers obesity obesity 2-14 ity of 00:00: [place] [address] Medical Branch KWAKU KWAKU Disease Active Univers (obstructi (obstructi 2-14 it y of ve sleep ve sleep 00:00: [place] apnea) apnea) 00 Medical Branch Mastitis Mastitis Disease Active [facility] of left of left 2-14 [facility] - breast breast 00:00: Medical unrelated unrelated 00 Cent er to to or or breastfeed breastfeed ing ing Diabetes Diabetes Disease Active [facility] t mellitus mellitus 2-14 [facility] - 00:00: [facility] 00 Center S/P S/P Disease Active Univers cervical cervical 8-18 ity of spinal spinal 00:00: [place] fusion fusion 00 Medical Branch Sinusitis Sinusitis Problem Active [facility] - [...] Date Date Clinician Iodine Propensi Active Swelling Method i ty to 05-20 adverse 00:00: Hospita reaction 00 l s to drug Shrimp Propensi Active Swelling Method i ty to 05-20 st adverse 00:00: Hospita reaction 00 l s to drug Shrimp Propensi Active Swelling Univer s ty to 05-20 ity of adverse 00:00: [place] reaction Medical s Branch Iodine Propensi Active Swelling Univer s ty to 05-20 ity of adverse 00:00: [place] reaction Medical s Branch IODINE DA Active U [facility] CONTRAST 05-27 [place] 00:00: [facility] 00 dic [facility] No Known DA Active U [facility] Drug 05-27 [place] Allergie 00:00: Orthope s 00 dic Hospita l No Known DA Active U 0 [facility] Food 05-27 [place] Allergie 00:00: Orthope s 00 dic Hospita l No Known DA Active U [facility] Other 05-27 [place] Allergie 00:00: Orthope s 00 dic Hospita l iodine DA Active U [facility]- [facility] 06-14 [place] 00:00: Orthope 00 dic Hospita l Social History Social Habit Start Date Stop Date Quantity Comments Source Exposure to Not sure [facility] SARS-CoV-2 [facility] (event) [place] Alcohol intake 2021-09-23 2021-09-23 Ex-drinker [facility] 00:00:00 00:00:00 (finding) [facility] Tobacco use and 2021-02-24 2021-02-24 Never used Universit y of exposure 00:00:00 00:00:00 [facility] Sex [birth year] Universit y of 00:00:00 00:00:00 [facility] Smoking Status Start Date Stop Date Source Never smoker [facility] Medications Ordered Filled Start Stop Current Ordering Indication Dosage Frequency Signature Comments Components Source Medication Medication Date Date Medication? Clinician (SIG) Name Name mirabegron 2020-10- Yes [id number] 50mg Take 1 Univers (MYRBETRIQ) 2-14 03-15 tablet by it y of 50 mg 00:00: 04:59 mouth [place] tablet 00 :00 daily for Medical 90 days. Branch valACYclovi 2020-10 Yes [id number] 1g Take 1 Univers r 1 gram 2-07 tablet by ity of tablet 00:00: mouth [place] 00 daily. Medical Branch clotrimazol Yes Apply to [facility] e-betametha 6-25 area(s) 2 ity of sone 00:00: (two) [place] (LOTRISONE) 00 times Medical cream daily. Branch acetaminoph Yes [id number] 1{tbl} Take 1 Un luigi en-codeine 5-21 tablet by ity of 300-30 mg 00:00: mouth [place] tablet 00 every 6 Medical (six) Branch hours as needed for Pain (scale 7-10) for up to 15 doses. Indication s: acute pain fluconazole Yes Take one Un luigi 150 mg 5-20 tablet PO ity of tablet 00:00: today, [place] 00 then Medical repeat in Branch 72 hours AMBIEN ORAL Yes None Univer s 5-13 Entered ity of 11:07: [address] IRON 18 MG Yes None Univers ORAL TAB 5-13 Entered ity of 11:07: [address] LEVOTHYROXI Yes None Univer s NE 200 MCG 5-13 Entered ity of ORAL TAB 11:07: [address] HYDROCHLORO Yes None Univer s THIAZIDE 25 5-13 Entered ity o f MG ORAL TAB 11:07: [address] EFFEXOR Yes None Univers ORAL 5-13 Entered ity of 11:07: [address] DEPAKOTE Yes None Univers ORAL 5-13 Entered ity of 11:07: [address] MULTIVITAMI Yes 1{tbl} Take 1 Un luigi N ORAL 5-13 tablet by ity of 11:07: mouth. [address] phentermine Yes Take by Un luigi HCl 5-13 mouth. ity of (PHENTERMIN 11:07: [place] E ORAL) [address] [place] [address] venlafaxine Yes 150mg Take 150 U nivers XR 150 mg 5-13 mg by ity of 24 hr 11:07: mouth. capsule Medical Branch potassium Yes 10meq Take 10 Univ ers chloride 10 5-13 mEq by ity of mEq CR 11:07: mouth. tablet Medical Branch meloxicam Yes Univers 15 mg 5-04 ity of tablet 00:00: Medical Branch divalproex Yes 2 tabets Uni vers ER 500 mg 5-02 at night ity of 24 hr 00:00: [place] tablet Medical Branch JARDIANCE Yes 1{tbl} Take 1 Univ ers 25 mg Tab 4-26 tablet by ity o f 00:00: mouth daily. Medical Branch levothyroxi Yes TAKE 1 Univ ers ne 137 mcg 4-26 TABLET BY ity of tablet 00:00: MOUTH EVERY Medical MORNING ON Branch EMPTY STOMACH traZODone Yes TAKE 1 Univer s 50 mg 3-16 TABLET BY ity of tablet 00:00: MOUTH EVERYDAY Medical AT BEDTIME Branch furosemide Yes 60mg Take 60 mg U nivers 20 mg 3-16 by mouth ity of tablet 00:00: daily. Medical Branch traZODone Yes 50mg QD Take [address] (DESYREL) 5-18 by mouth [facility] - 50 MG 18:46: nightly. Medical tablet [place] montelukast Yes 10mg QD Take [address] (SINGULAIR) 5-18 by mouth Luke s - 10 mg 18:46: every Medical tablet 23 morning. [place] glimepiride Yes 1mg QD Take [address] (AMARYL) 1 5-18 by mouth [facility] - MG tablet 18:46: every Medical 23 evening. [place] furosemide Yes 20mg QD Take [address] (LASIX) 40 5-18 by mouth [facility] - MG tablet 18:46: every Medical 23 morning . [place] amitriptyli Yes 25mg QD Take [address] ne (ELAVIL) 5-18 by mouth Luke s - 25 MG 18:46: nightly. Medical tablet 23 [place] carvedilol Yes 6.25mg Q.5D Take 6.25 CHI [...] 10 MG 18:46: daily. Medical tablet 23 [place] levothyroxi Yes 150ug Take 150 C HI [...] mouth Medic al hr capsule 23 daily. [place] meloxicam Yes 15mg QD Take [address] (MOBIC) 7.5 5-18 by mouth Luke s - MG tablet 18:46: daily . Medic al 23 [place] ferrous Yes 324mg Take 324 [facility] t gluconate 5-18 mg by [facility]ukes - (FERGON) 18:46: mouth Medical 324 MG 23 daily with [place] tablet breakfast. cholecalcif Yes 1000U QD Take 1,[address] kyle, 5-18 Units by [facility]ukes - vitamin D3, 18:46: mouth Medic al 2,000 unit 23 daily. [place] Tab ondansetron 0 Yes Take by [facility] (ZOFRAN) 8 5-18 mouth. [facility]ukes - MG tablet 18:46: Medical 23 [place] ciprofloxac 0 Yes 500mg Take [address] in HCl 5-18 mg by [facility]ukes - (CIPRO) 500 18:46: mouth. Medi macario MG tablet 23 Center empaglifloz Yes 10mg QD Take [address] in 5-18 by mouth Lukes - (JARDIANCE) 18:46: daily. Medi macario 10 mg 23 Center tablet Bactrim Bactrim 2017- No Deepthi 1 tablet [place] 11-14 [place] for ENT 00:00: 00:00 00 :00 Bactroban Bactroban 2017- No Deepthi 1 [place] 11-08 [place] applicatio for EN T 00:00: 00:00 n to 00 :00 affected area atorvastati Yes 10mg QD Take 10 mg [...] 16:01: Hospit a E ORAL) 07 l traMADol Yes 50mg Q6H Take 50 mg Met hodi (ULTRAM) 50 8-[address] mg tablet 16:01: every 6 Hospi ta 07 (six) l hours as needed for moderate pain. Medrol Medrol Yes Deepthi as Center (Ranjeet) (Ranjeet) 1-11 Clement[place] directed for ENT 00:00: 00 NORCO 2006-10 Yes One to two Univer s 10-325 MG 1-12 tablets ity of ORAL TAB 00:00: every 4 to Jimbo as 00 6 hours as Medical needed for Branch pain PREDNISONE 2006-10 Yes Take 3 Unive rs 20 MG ORAL 1-12 tablets in ity of TAB 00:00: the [place] 00 morning Medical every day Branch for 5 days CYCLOBENZAP 2006-10 Yes One tablet Univers RINE 10 MG 1-12 by mouth ity o f ORAL TAB 00:00: three [place] 00 times a Medical day Branch Ferrous Ferrous Yes Deepthi not Center Gluconate [...] HCl HCl [place] with meals for ENT Immunizations Ordered Filled Immunization Date Status Comments [facility] Immunization Name Name Influenza Virus 2021-09-22 Completed Universit y of Vaccine,quad 00:00:00 [facility] Im,preserve Free Branch 65+ Vital Signs Vital Name Observation Time Observation Value Comments Source Systolic blood 2021-10-30 20:14:00 131 mm[Hg] Univer sity of pressure [facility] Diastolic blood 2021-10-30 20:14:00 84 mm[Hg] Unive rsity of [facility] Heart rate 2021-10-30 20:13:00 82 /min [facility] Body temperature 2021-10-30 20:13:00 36.78 [facility] height 2021-10-30 20:13:00 162.6 cm [facility] Body weight 2021-10-30 20:13:00 108.863 kg [facility] BMI 2021-10-30 20:13:00 41.20 kg/m2 [facility] Procedures This patient has no known procedures. Plan of Care Planned Activity Planned Date Details Comments Source Future Scheduled 2021-06-[address] [facility] - Test 00:00:00 (Season Ended) [code = [facility] INFLUENZA VACCINE (Season Ended)] Future Scheduled 2020-10-[address] [facility] - Test 00:00:00 (12+) [code = Medical Center DEPRESSION SCREENING (12+)] Future Scheduled 2019-12-[address] Karthik es - Test 00:00:00 malignant neoplasm of [facility] breast (procedure) [code = 445876783] Future Scheduled 2019 PNEUMOCOCCAL 65+ Y[facility] - Test 00:00:00 (1 of 1 - Medical Center [id number] PCV13) [code = PNEUMOCOCCAL 65+ YRS (1 of 1 - [id number] PCV13)] Future Scheduled 2019-08-[address] Estella kes - Test 00:00:00 [facility] Medical Center (procedure) [code = 40668103] Future Scheduled 2004 SHINGLES VACCINES ([address] [facility] - Test 00:00:00 of 2) [code = SHINGLES [facility] VACCINES (1 of 2)] Future Scheduled [...] 00:00:00 examination Medical Center (regime/therapy) [code = 976148614] Future Scheduled 1964 Urine screening for [facility] - Test 00:00:00 protein (procedure) Medical Center [code = 315845323] Future Scheduled [address] [facility] Karthik es - Test 00:00:00 malignant neoplasm of [facility] colon (procedure) [code = 175299538] Future Scheduled 65+ [facility]OCOCCAL [facility] [...] (1)] Future Scheduled [facility] (procedure) [code = 385082940] Future Scheduled BREAST CANCER [facility] Test SCREENING [code = BREAST CANCER SCREENING] Future Scheduled [facility]OSCOPY [facility] [code = COLONOSCOPY SCREENING] Future Scheduled SHINGLES VACCINES (#1) [facility] [code = SHINGLES VACCINES (#1)] Future Scheduled [facility]INE [facility] [code = INFLUENZA VACCINE] Encounters Start End Encounter Admission Attending Care Care Encounter Source Date/Time Date/Time Type Type Clinicians Facility Department ID 2020-04-14 Inpatient C CLEMENTINE, [facility] BALANCE PT [id number] [facility] 15:08:00 [facility] 2021-10-30 2021-10-30 Office Gabriel [facility] [id number] Univers 16:30:00 17:00:00 Visit [facility] [id number] i ty of CLEAR [id number] Mirta dowd CATES [id number] [place] [id number] Branch OFFICE BUILDING 2018-02-07 2018-02-07 Outpatient The The Center [id number] [place] 15:56:00 15:56:00 [facility] 2018-02-07 2018-02-07 Outpatient The The [place] [id number] [place] 15:16:00 15:16:00 [facility] 2017-11-28 2017-11-28 Outpatient The The Center [id number] [place] 09:30:00 09:30:00 [facility] 2017-11-18 2017-11-18 Outpatient The The [place] [id number] [place] 10:50:00 10:50:00 [facility] 2017-11-15 2017-11-15 Outpatient The The Center [id number] [place] 09:26:00 09:26:00 [facility] Results Test Description Test Time Test Comments Results Result Comments Source BLOOD CULTURE 2019-03-04 20:01:00 Test Item Value Reference Range Interpretation Comme nts CULTURE (BEAKER) (test code = 1095) No growth in 5 days BLOOD [id number] 20:01:00 Test Item Value Reference Range Interpretation Comments CULTURE (BEAKER) (test No growth in 5 days code = 1095) POCT-GLUCOSE [id number] 11:57:00 Test Item Value Reference Range Interpretation Comments POC-GLUCOSE METER 117 mg/dL 70-110 H TESTED AT [facility] [address] ([address]) (test code = [place] 1538) [id number] POCT-GLUCOSE [id number] 07:57:00 Test Item Value Reference Range Interpretation Comments POC-GLUCOSE METER 110 mg/dL 70-110 TESTED AT [facility] 6720 ([facility]) (test code = MORENITA [place] 1538) [address] POCT-GLUCOSE [id number] 21:11:00 Test Item Value Reference Range Interpretation Comments POC-GLUCOSE METER 100 mg/dL 70-110 TESTED AT [facility] 6720 ([facility]) (test code = MORENITA [place] 1538) [id number] MR, SPINE, LUMBAR, WITHOUT [id number] 20:59:00FINAL REPORT MR, SPINE, LUMBAR, WITHOUT CONTRAST [...] MDReport Verified Date/Time: 03/02/2019 20:59:13 Reading Location: [facility] Radiology Reading Room POCT-GLUCOSE [id number] 18:37:00 Test Item Value Reference Range Interpretation Comments POC-GLUCOSE METER 130 mg/dL 70-110 H TESTED AT [place] [address] ([facility]) (test code = [facility] Roxana [facility] 1538) [address] POCT-GLUCOSE [id number] 12:03:00 Test Item Value Reference Range Interpretation Comments POC-GLUCOSE METER 105 mg/dL 70-110 TESTED AT [place] [address] ([facility]) (test code = [facility] 1538) [id number] POCT-GLUCOSE [id number] 06:55:00 Test Item Value Reference Range Interpretation Comments POC-GLUCOSE METER 126 mg/dL 70-110 H TESTED AT [place] [address] ([facility]) (test code = [facility] 1538) [address] POCT-GLUCOSE [id number] 20:31:00 Test Item Value Reference Range Interpretation Comments POC-GLUCOSE METER 98 mg/dL 70-110 TESTED AT [place] [address] ([facility]) (test code = [facility] [address] 1538) CT, SPINE, LUMBAR, WO [id number] 19:49:00FINAL REPORT CT, SPINE, LUMBAR, WO CONTRAST [...] MDReport Verified Date/Time: 03/01/2019 19:49:57 Reading Location: [facility] C013V Neuro Reading Room POCT-GLUCOSE [id number] 16:35:00 Test Item Value Reference Range Interpretation Comments POC-GLUCOSE METER 172 mg/dL 70-110 H TESTED AT [place] [address] ([facility]) (test code = [facility] 1538) [address] POCT-GLUCOSE [id number] 11:56:00 Test Item Value Reference Range Interpretation Comments POC-GLUCOSE METER 202 mg/dL 70-110 H TESTED AT [place] [address] ([facility]) (test code = [facility] 1538) [address] POCT-GLUCOSE [id number] 07:34:00 Test Item Value Reference Range Interpretation Comments POC-GLUCOSE METER 135 mg/dL 70-110 H TESTED AT [place] [address] ([facility]) (test code = [facility] 1538) [address] CALCIUM, [id number] 06:34:00 Test Item Value Reference Range Interpretation Comments CALCIUM IONIZED (BEAKER) (test 1.06 mmol/L 1.12-1.27 L code = 698) PH, BLOOD ([facility]) (test code = 7.37 1810) [id number] 05:46:00 Test Item Value Reference Range Interpretation Comments MAGNESIUM (BEAKER) (test code = 2.1 mg/dL 1.6-2.6 627) BASIC METABOLIC [id number] 05:46:00 Test Item Value Reference Range Interpretation [...] PATIEN TS. CBC W/PLT COUNT & AUTO [id number] 05:29:00 Test Item Value Reference Range Interpretation [...] (BEAKER) (test code = 2801) LACTIC ACID, [id number] 05:29:00 Test Item Value Reference Range Interpretation Comments LACTATE BLOOD VENOUS (2) (BEAKER) 1.1 mmol/L 0.5-2.2 (test code = 2872) POCT-GLUCOSE [id number] 20:48:00 Test Item Value Reference Range Interpretation Comments POC-GLUCOSE METER 109 mg/dL 70-110 TESTED AT [place] [address] ([facility]) (test code = [facility] 1538) [id number] POCT-GLUCOSE [id number] 16:53:00 Test Item Value Reference Range Interpretation Comments POC-GLUCOSE METER 117 mg/dL 70-110 H TESTED AT [place] [address] ([facility]) (test code = [facility] 1538) [id number] POCT-GLUCOSE [id number] 11:55:00 Test Item Value Reference Range Interpretation Comments POC-GLUCOSE METER 173 mg/dL 70-110 H TESTED AT [place] [address] ([facility]) (test code = [facility] 1538) [address] POCT-GLUCOSE [id number] 08:46:00 Test Item Value Reference Range Interpretation Comments POC-GLUCOSE METER 120 mg/dL 70-110 H TESTED AT [place] [address] (BEAKER) (test code = MORENITA [place] 1538) [address] HEMOGLOBIN [id number] 07:05:00 Test Item Value Reference Range Interpretation Comments HEMOGLOBIN A1C (BEAKER) (test code = 6.9 % 4.3-6.1 H 368) T4, [id number] 06:32:00 Test Item Value Reference Range Interpretation Comments FREE T4 (BEAKER) (test code = 655) 1.00 ng/dL 0.70-1.48 TSH/FREE T4 IF [id number] 05:26:00 Test Item Value Reference Range Interpretation Comments THYROID STIMULATING HORMONE 5.10 uIU/mL 0.35-4.94 H (BEAKER) (test code = 772) VITAMIN B12 AND [id number] 05:20:00 Test Item Value Reference Range Interpretation Comments VITAMIN B12 (BEAKER) (test code = 1226 pg/mL 213-816 H 774) FOLATE (BEAKER) (test code = 362) 14.8 ng/mL >=7.0 BASIC METABOLIC [id number] 05:17:00 Test Item Value Reference Range Interpretation [...] NOT APPLICABLE FOR DIALYSIS PATIEN TS. CALCIUM, [id number] 05:14:00 Test Item Value Reference Range Interpretation Comments CALCIUM IONIZED (BEAKER) (test 0.93 mmol/L 1.12-1.27 L code = 698) PH, BLOOD (BEAKER) (test code = 7.49 1810) [id number] 04:59:00 Test Item Value Reference Range Interpretation Comments PHOSPHORUS (BEAKER) (test code = 4.2 mg/dL 2.3-4.7 604) [id number] 04:59:00 Test Item Value Reference Range Interpretation Comments MAGNESIUM (BEAKER) (test code = 2.0 mg/dL 1.6-2.6 627) LACTIC ACID, [id number] 04:55:00 Test Item Value Reference Range Interpretation Comments LACTATE BLOOD VENOUS (2) (BEAKER) 1.8 mmol/L 0.5-2.2 (test code = 2872) CBC W/PLT COUNT & AUTO [id number] 04:35:00 Test Item Value Reference Range Interpretation [...] PERCENT (BEAKER) (test code = 2801) POCT-GLUCOSE [id number] 21:40:00 Test Item Value Reference Range Interpretation Comments POC-GLUCOSE METER 133 mg/dL 70-110 H TESTED AT [facility] 6720 ([facility]) (test code = [facility] 1538) [address] LACTIC ACID, [id number] 19:18:00 Test Item Value Reference Range Interpretation Comments LACTATE BLOOD VENOUS (2) (BEAKER) 3.6 mmol/L 0.5-2.2 H (test code = 2872) POCT-GLUCOSE [id number] 18:17:00 Test Item Value Reference Range Interpretation Comments POC-GLUCOSE METER 95 mg/dL 70-110 TESTED AT [facility] 67[facility] (test code = [facility] [address] 1538) LACTIC ACID, [id number] 15:26:00 Test Item Value Reference Range Interpretation Comments LACTATE BLOOD VENOUS 1.7 mmol/L 0.5-2.2 Specime n slightly (2) (BEAKER) (test hemolyzed code = 2872) [id number] 14:38:00 Test Item Value Reference Range Interpretation Comments PROCALCITONIN (BEAKER) (test code 0.05 ng/mL <0.05 H = 3036) SEPSIS RISK (ng/mL)Low: 0.05-0.50Intermediate: 0.51-2.00High: >=2.01U/S, [id number] 14:19:00Reason for exam:->CYSTITISFINAL REPORT INDICATION:Urinary tract infection [...] [place] Verified Date/Time: 02/27/2019 14:19:25 Reading Location: [address] Ultrasound Reading Room U/S, RENAL, [id number] 14:19:00Reason for exam:->CYSTITISFINAL REPORT INDICATION:Urinary tract infection [...] [place] Verified Date/Time: 02/27/2019 14:19:25 Reading Location: [address] Ultrasound Reading Room ALYSIS W/ REFLEX URINE [id number] 12:20:00 Test Item Value Reference Range Interpretation [...] SOURCE(BEAKER) (test code = 2795) HEPATIC FUNCTION [id number] 12:11:00 Test Item Value Reference Range Interpretation [...] = 15 U/L 6-55 347) BASIC METABOLIC [id number] 12:11:00 Test Item Value Reference Range Interpretation [...] APPLICABLE FOR DIALYSIS PATIEN TS. LACTIC ACID, [id number] 12:09:00 Test Item Value Reference Range Interpretation Comments LACTATE BLOOD VENOUS 2.3 mmol/L 0.5-2.2 H Specime n slightly (2) (BEAKER) (test hemolyzed code = 3762) KETONE, [id number] 11:53:00 Test Item Value Reference Range Interpretation Comments KETONES, BLOOD (BEAKER) (test code 0.1 mmol/L <0.4 = 1103) CBC W/PLT COUNT & AUTO [id number] 11:53:00 Test Item Value Reference Range Interpretation [...] code = 2801) WOUND CULTURE + GRAM [id number] 18:38:00 Test Item Value Reference Range Interpretation Comments CULTURE (BEAKER) (test code 1+ Skin batsheva = 1095) GRAM STAIN RESULT (BEAKER) No WBCs (test code = 1123) GRAM STAIN RESULT (BEAKER) No organisms seen (test code = 30929) AFB CULTURE + [id number] 14:57:00 Test Item Value Reference Range Interpretation Comments CULTURE (BEAKER) (test No acid-fast bacilli code = 1095) isolated in 42 days AFB SMEAR (BEAKER) No acid fast bacilli (test code = 994) seen SURGICALLY OBTAINED CULTURE + GRAM [id number] 10:13:00 Test Item Value Reference Range Interpretation Comments CULTURE (BEAKER) (test No growth code = 1095) GRAM STAIN RESULT <1+ White blood cells (BEAKER) (test code = seen 1123) GRAM STAIN RESULT No organisms seen (BEAKER) (test code = 71860) MM, U/S, BREAST, UNILATERAL, [id number] 16:18:00Reason for Exam:->r21 #[id number] - MM, U/S, BREAST, UNILATERAL, LEFTULTRASOUND OF [...] of malignancy. Macie Diop M.D. pth/:12/08/2017 16:18:20 Roving Department End Finder: Phuong Pugh Pick Pulling Machine Tender, [facility] Ultrasound BI-RADS: 2 Benign 77317 MM, DIGITAL MAMMO, DIAGNOSTIC, BILATERAL INCLUDING [id number] 16:16:00Reason for Exam:- >Encounter for screening mammogram for malugnant neoplasm of breastMRN#: [id number] - MM, DIGITAL MAMMO, DIAGNOSTIC, BILATERAL INCLUDING [...] is recommended. Macie Diop M.D. pth/:12/08/2017 16:16:27 [place] Department End Finder: Ashely ANTHONY)(Miguel Angel), [facility] Mammogram BI-RADS: 2 Benign G0204 BLOOD [id number] 05:01:00 Test Item Value Reference Range Interpretation Comments CULTURE (BEAKER) (test No growth in 5 days code = 1095) BLOOD [id number] 23:00:00 Test Item Value Reference Range Interpretation Comments CULTURE (BEAKER) (test No growth in 5 days code = 1095) POCT-GLUCOSE [id number] 07:45:00 Test Item Value Reference Range Interpretation Comments POC-GLUCOSE METER 125 mg/dL 70-110 H TESTED AT [facility] 6720 (BEAKER) (test code = [place] 1538) [address] CALCIUM, [id number] 06:18:00 Test Item Value Reference Range Interpretation Comments CALCIUM IONIZED (BEAKER) (test 1.10 mmol/L 1.12-1.27 L code = 698) PH, BLOOD (BEAKER) (test code = 7.36 1810) [id number] 06:10:00 Test Item Value Reference Range Interpretation Comments PHOSPHORUS (BEAKER) (test code = 4.3 mg/dL 2.3-4.7 604) [id number] 06:10:00 Test Item Value Reference Range Interpretation Comments MAGNESIUM (BEAKER) (test code = 1.7 mg/dL 1.6-2.6 627) BASIC METABOLIC [id number] 06:10:00 Test Item Value Reference Range Interpretation [...] PATIEN TS. CBC W/PLT COUNT & AUTO [id number] 05:28:00 Test Item Value Reference Range Interpretation [...] LYMPHOCYTES ABSOLUTE COUNT 2.78 K/ L 1.18-3.74 ([facility]) (test code = 414) MONOCYTES ABSOLUTE COUNT ([facility]) 0.62 K/ L 0.24-0.36 H (test code = 415) EOSINOPHILS ABSOLUTE COUNT 0.14 K/ L 0.04-0.36 ([facility]) (test code = 416) BASOPHILS ABSOLUTE COUNT ([facility]) 0.03 K/ L 0.01-0.08 (test code = 417) IMMATURE GRANULOCYTES-RELATIVE 0 % 0-1 PERCENT ([facility]) (test code = 2801) POCT-GLUCOSE [id number] 21:40:00 Test Item Value Reference Range Interpretation Comments POC-GLUCOSE METER 138 mg/dL 70-110 H TESTED AT [place] [address] ([facility]) (test code = [facility] 1538) [address] POCT-GLUCOSE [id number] 18:56:00 Test Item Value Reference Range Interpretation Comments POC-GLUCOSE METER 98 mg/dL 70-110 TESTED AT [place] [address] ([facility]) (test code = [facility] [address] 1538) POCT-GLUCOSE [id number] 14:49:00 Test Item Value Reference Range Interpretation Comments POC-GLUCOSE METER 92 mg/dL 70-110 TESTED AT [place] [address] ([facility]) (test code = [facility] [address] 1538) VANCOMYCIN LEVEL, [id number] 11:12:00 Test Item Value Reference Range Interpretation Comments VANCOMYCIN TROUGH ([facility]) (test 16.1 ug/mL 10.0-20.0 code = 522) POCT-GLUCOSE [id number] 09:35:00 Test Item Value Reference Range Interpretation Comments POC-GLUCOSE METER 123 mg/dL 70-110 H TESTED AT [place] [address] ([facility]) (test code = [facility] 1538) [address] CBC W/PLT COUNT & AUTO [id number] 09:02:00 Test Item Value Reference Range Interpretation Comments WHITE BLOOD CELL COUNT ([facility]) 6.2 K/ L 3.5-10.5 (test code = 775) RED BLOOD CELL COUNT ([facility]) 3.72 M/ L 3.93-5.22 L (test code = 761) HEMOGLOBIN ([facility]) (test code = 11.5 GM/DL 11.2-15.7 410) [...] (BEAKER) (test code = 2801) VITAMIN D, [id number] 07:00:00 Test Item Value Reference Range Interpretation Comments VITAMIN D 25-OH (BEAKER) (test 22.5 ng/mL 6.6-49.9 code = 2764) Effective 07/27/2017: Reference Range ChangeNew: 6.6-49.9 ng/mL Previous: 13.0-47.8 ng/mLRecommended Vitamin D Target Range: 30.0-40.0 ng/mLPHOSPHORUS 2017-12-02 06:39:00 Test Item Value Reference Range Interpretation Comments PHOSPHORUS (BEAKER) (test code = 4.6 mg/dL 2.3-4.7 604) [id number] 06:39:00 Test Item Value Reference Range Interpretation Comments MAGNESIUM (BEAKER) (test code = 1.7 mg/dL 1.6-2.6 627) BASIC METABOLIC [id number] 06:39:00 Test Item Value Reference Range Interpretation [...] NOT APPLICABLE FOR DIALYSIS PATIEN TS. CALCIUM, [id number] 06:30:00 Test Item Value Reference Range Interpretation Comments CALCIUM IONIZED (BEAKER) (test 0.87 mmol/L 1.12-1.27 L code = 698) PH, BLOOD (BEAKER) (test code = 7.37 1810) POCT-GLUCOSE [id number] 20:32:00 Test Item Value Reference Range Interpretation Comments POC-GLUCOSE METER 173 mg/dL 70-110 H TESTED AT [facility] 6720 (BEAKER) (test code = [place] 1538) [address] POCT-GLUCOSE [id number] 18:41:00 Test Item Value Reference Range Interpretation Comments POC-GLUCOSE METER 121 mg/dL 70-110 H TESTED AT [place] [address] ([facility]) (test code = MORENITA [place] 1538) [address] HEMOGLOBIN [id number] 14:36:00 Test Item Value Reference Range Interpretation Comments HEMOGLOBIN A1C (BEAKER) (test code = 6.6 % 4.3-6.1 H 368) POCT-GLUCOSE [id number] 12:36:00 Test Item Value Reference Range Interpretation Comments POC-GLUCOSE METER 139 mg/dL 70-110 H TESTED AT [place] [address] ([facility]) (test code = MORENITA Schmidt [place] 1538) [address] POCT-GLUCOSE [id number] 08:34:00 Test Item Value Reference Range Interpretation Comments POC-GLUCOSE METER 125 mg/dL 70-110 H TESTED AT [place] [address] ([facility]) (test code = MORENITA Schmidt [place] 1538) [address] CBC W/PLT COUNT & AUTO [id number] 07:16:00 Test Item Value Reference Range Interpretation [...] (test code = 1351) TSH/FREE T4 IF [id number] 06:48:00 Test Item Value Reference Range Interpretation Comments THYROID STIMULATING HORMONE 4.13 uIU/mL 0.35-4.94 (BEAKER) (test code = 772) [id number] 06:25:00 Test Item Value Reference Range Interpretation Comments PHOSPHORUS (BEAKER) (test code = 3.9 mg/dL 2.3-4.7 604) [id number] 06:25:00 Test Item Value Reference Range Interpretation Comments MAGNESIUM (BEAKER) (test code = 1.8 mg/dL 1.6-2.6 627) BASIC METABOLIC [id number] 06:25:00 Test Item Value Reference Range Interpretation [...] NOT APPLICABLE FOR DIALYSIS PATIEN TS. LIPID [id number] 06:25:00 Test Item Value Reference Range Interpretation [...] Borderline 130-159 High 160-189 Very High >=190CALCIUM, [id number] 06:02:00 Test Item Value Reference Range Interpretation Comments CALCIUM IONIZED (BEAKER) (test 0.84 mmol/L 1.12-1.27 L code = 698) PH, BLOOD (BEAKER) (test code = 7.40 1810) POCT-GLUCOSE [id number] 23:04:00 Test Item Value Reference Range Interpretation Comments POC-GLUCOSE METER 92 mg/dL 70-110 TESTED AT [facility] 6720 (BEAKER) (test code = [place] [address] 1538) BASIC METABOLIC [id number] 16:03:00 Test Item Value Reference Range Interpretation [...] PATIEN TS. CBC W/PLT COUNT & AUTO [id number] 15:58:00 Test Item Value Reference Range Interpretation [...] (test code = 2801) RAD, CHEST, 2 [id number] 15:19:00Reason for exam:->cpShould this be performed at the bedside?->NoFINAL REPORT Chest two views compared to November 14, 2017 Discussion: Lungs clear. Heart size normal. No effusion or pneumothorax. There are right shoulder degenerative changes. W idened left AC joint may reflect previous surgery or trauma. Signed: Eryn [place] Verified Date/Time: 11/30/2017 15:19:59 Reading Location: [address] Consult Reading Room SINUS CULTURE + GRAM [id number] 08:42:00 Test Item Value Reference Interpretation Comments [...] No organisms (BEAKER) (test code = seen 572953) No Normal respiratory batsheva presentHEPATIC FUNCTION [id number] 14:45:00 Test Item Value Reference Range Interpretation [...] = 9 U/L 6-55 347) BASIC METABOLIC [id number] 14:45:00 Test Item Value Reference Range Interpretation [...] PATIEN TS. CBC W/PLT COUNT & AUTO [id number] 14:12:00 Test Item Value Reference Range Interpretation [...] (test code = 2801) RAD, CHEST, 2 [id number] 13:06:00Reason for Exam:->H88CVMMC REPORT HISTORY : R05. Comparison: None Comment: Two views of the chest,PA and lateral, were obtained. The cardiac silhouette is within normal limits. There is no pleural effusion, pneumothorax or infiltrate. No lytic or blastic abnormalities. Fixation hardware is seen in the cervical spine. Multilevel degenerative disc changes of the thoracic spine are seen. Impression: No acute cardiothoracic abnormalities. Signed: Kelly Chapin Verified Date/Time: 11/14/2017 13:06:08 Reading Location: [address] Radiology Reading Room CT ABDOMEN AND [...]
[2021-11-27 14:56] LABS: Absolute Lymphocytes (CBC) 2.7 K/uL (0.7-4.9); Hematocrit 36.9 % (36.0-45.0); MPV 7.4 fL (7.6-11.3); RBC Red Blood Cell Count 3.71 M/uL (3.86-4.86)
[2021-11-27 14:59] LABS: Protime INR 0.94
[2021-11-27 15:08] LABS: Urine Blood Negative (Negative); Urine Glucose Negative (Negative); Urine Protein Negative (Negative)
[2021-11-27] MEDS ORDERED: FUROSEMIDE 40 MG/4 ML VIAL ONE (15:10)
--- NOTE | 2021-11-27 15:15 | RAD REPORT ---
EXAM DESCRIPTION: RAD - Chest Single View - 11/27/2021 2:58 pm CLINICAL HISTORY: Cough;Dyspnea COMPARISON: Portable 05/04/2020 TECHNIQUE: AP portable chest image was obtained 11/27/2021 2:58 pm . FINDINGS: Lung volumes are low. Portable technique, large body habitus and shallow inspiration accen tuate heart, vasculature and lung markings. No peripheral mass consolidation. No significant failure or volume overload. Heart and vasculature are normal. No measurable pleural effusion and no pneumothorax. No acute bony abnormality seen. No acute aortic findings suspected. IMPRESSION: No acute cardiopulmonary process.
[2021-11-27 15:40] LABS: ALT/SGPT 14 U/L (12-78); AST/SGOT 17 U/L (15-37); Alkaline Phosphatase 106 U/L (45-117); BUN Blood Urea Nitrogen 17 mg/dL (7-18); Bicarbonate 26 mmol/L (21-32); Bilirubin Direct < 0.1 mg/dL (0-0.2); Bilirubin Total 0.3 mg/dL (0.2-1.0); Glucose Level 152 mg/dL (74-106); Magnesium 1.9 mg/dL (1.8-2.4); NT PRO-BNP 281 pg/mL (<125); Potassium 3.4 mmol/L (3.5-5.1); Protein, Total 6.9 g/dL (6.4-8.2); Sodium Level 139 mmol/L (136-145)
[2021-11-27] MEDS ORDERED: POTASSIUM 25 MEQ EFFERV TAB ONE (16:45)
--- NOTE | 2021-11-27 17:19 | RAD REPORT ---
EXAM DESCRIPTION: US - Extrem Venous W Compress Sergey - 11/27/2021 5:10 pm CLINICAL HISTORY: Pain;Swelling COMPARISON: None. TECHNIQUE: Real-time sonographic evaluation of the bilateral lower extremity common femoral, superfi cial femoral, popliteal and posterior tibial veins was performed. FINDINGS: Normal compressibility, flow augmentation, phasic flow and spontaneous flow are identified in the left and right lower extremity common femoral, superficial femoral, popliteal and posterior t ibial veins. No intraluminal filling defects seen. IMPRESSION: No DVT in either lower extremity.
--- NOTE | 2021-11-27 17:51 | ER ---
Nurse's Notes [facility] Name: Lara Liu Age: 66 yrs Sex: Female : 1955 Arrival Date: 11/27/2021 Time: 12:11 Bed 5 Private MD: Diagnosis: Type 2 diabetes mellitus with hyperglycemia;Morbid (severe) obesity due to excess calories;Dyspnea;Chest pain, unspecified;Unspecified combined systolic (congestive) and diastolic (congestive) heart failure Presentation: 11/27 12:19 Chief complaint: Patient states: SOB and fluid build up for 1 week. Sent in by Dr. richard Hinson for eval and possible admission. Taking lasix as prescribed. Coronavirus screen: Vaccine status: Patient reports receiving the 2nd dose of the covid vaccine. Client denies travel out of the [place] in the last 14 days. difficulty breathing, fatigue, shortness of breath, Client presents with at least one sign or symptom that may indicate coronavirus-19. Standard/surgical mask placed on the client. Ebola Screen: Patient denies travel to an Ebola-affected area in the 21 days before illness onset. Initial Sepsis Screen: Does the patient meet any 2 criteria? No. Patient's initial sepsis screen is negative. Does the patient have a suspected source of infection? No. Patient's initial sepsis screen is negative. Risk Assessment: Do you want to hurt yourself or someone else? Patient reports no desire to harm self or others. Onset of symptoms was November 20, 2021. 12:19 Method Of Arrival: Wheelchair ll1 12:19 Acuity: CRIS 3 ll1 Triage Assessment: 12:22 General: Appears in no apparent distress. Behavior is calm, cooperative, appropriate ll1 for age. Pain: Denies pain. Neuro: No deficits noted. Cardiovascular: No deficits noted. Respiratory: Reports shortness of breath Onset: The symptoms/episode began/occurred 1 week ago, the patient has mild shortness of breath. Musculoskeletal: Reports swelling to both feet. Historical: - Allergies: 12:21 No Known Drug Allergies; ll1 - PMHx: 12:21 Diabetes - NIDDM; Hypothyroidism; Hypertension; Hyperlipidemia; CHF; Sleep Apnea; ll1 - PSHx: 12:21 gastric bypass; neck SX; Cholecystectomy; hysterectomy; ll1 - Immunization history:: Client reports receiving the 2nd dose of the Covid vaccine. - Social history:: Smoking status: Patient denies any tobacco usage or history of. Screenin:45 Abuse screen: Denies threats or abuse. jh6 14:45 Nutritional screening: Had unintentional weight gain of 10 pounds or more. Tuberculosis jh6 screening: No symptoms or risk factors identified. Fall Risk None identified. Assessment: 14:40 General: Appears in no apparent distress. obese, well groomed, well developed, well jh6 nourished, Behavior is calm, cooperative. 14:40 Cardiovascular: No deficits noted. Rhythm is regular. Respiratory: Airway is patent jh6 Respiratory effort is even. 15:26 Respiratory: Breath sounds with crackles bilaterally. in left posterior lower lobe and jh6 right posterior lower lobe. 17:00 Reassessment: Patient and/or family updated on plan of care and expected duration. Pain jh6 level reassessed. Patient states feeling better. 17:00 General: Appears in no apparent distress. comfortable, Behavior is calm, cooperative. 6 Vital Signs: 12:19 BP 110 / 57; Pulse 65; Resp 18; Temp 97.8; Pulse Ox 95% on R/A; Weight 108.86 kg; ll1 Height 5 ft. 4 in. (162.56 cm); Pain 0/10; 15:21 BP 95 / 57; Pulse 62; Resp 18; Pulse Ox 100% ; Pain 0/10; jh6 17:00 BP 111 / 64; Pulse 58; Resp 18; Pulse Ox 100% ; Pain 0/10; jh6 18:00 BP 119 / 77; Pulse 61; Resp 18; Temp 98.0(O); Pulse Ox 100% ; Pain 0/10; jh6 12:19 Body Mass Index 41.20 (108.86 kg, 162.56 cm) ll1 Vitals: 14:40 Cardiac Rhythm Assessment Regular. 6 ED Course: 12:11 Patient arrived in ED. rg4 12:21 Triage completed. ll1 12:22 Arm band placed on. ll1 13:51 Fidencio Ford MD is Attending Physician. [facility] 14:13 Patient placed in an exam room, on a stretcher. ss 14:19 Leonie Ralph, LUZ ELENA is Primary Nurse. jh6 14:40 Patient has correct armband on for positive identification. Placed in gown. Bed in low jh6 position. Call light in reach. Side rails up X 1. 14:55 Inserted saline lock: 24 gauge in left hand, using aseptic technique. Blood collected. [facility] 14:55 EKG done, by ED staff, reviewed by Fidencio GASTON swab sent to lab. X-ray(s) [facility] taken. 14:58 XRAY Chest (1 view) In Process Unspecified. EDMS 15:00 Cardoza cath inserted, using sterile technique, 18 Fr., by wi, balloon inflated, to jh6 gravity drainage, urine specimen collected. 17:10 US Extremity Venous W Compression Sergey In Process Unspecified. EDMS 17:48 Notified ED physician of a critical lab result(s). d dimer 505. 17:49 Catalino Gillis is Hospitalizing Provider. [facility] 19:08 Primary Nurse role handed off by Leonie Ralph, RN cs9 20:51 Kinjal Zazueta, RN is Primary Nurse. st1 20:57 No provider procedures requiring assistance completed. st1 21:48 Patient admitted, IV remains in place. st1 Administered Medications: 15:11 Drug: Lasix (furosemide) 40 mg Route: IVP; Site: left hand; jh6 17:31 Drug: Potassium Effervescent Tablet 50 mEq Route: PO; jh6 18:41 Drug: Lovenox (enoxaparin) 100 mg Route: Sub-Q; Site: abdomen; jh6 Output: 15:45 Urine: 1800ml (Cardoza); Total: 1800ml. jh6 Outcome: 17:50 Decision to Hospitalize by Provider. [facility] 20:57 Admitted to Med/surg accompanied by tech, via stretcher, with chart, Report called to st1 LUZ ELENA Diaz 21:47 Condition: good st1 22:09 Patient left the ED. st1 Signatures: Dispatcher [employer] EDKS Fidencio Ford MD MD cha Smirch, Shelby, RN Raquel Brunson 4 Selene Gutierrez RN RN Rupali Aguilar cs9 Leonie Ralph, LUZ ELENA [place] 6 Kinjal Zazueta, LUZ ELENA RN 1
--- NOTE | 2021-11-27 17:51 | EDPHYS ---
Physician Documentation [facility] Name: Lara Liu Age: 66 yrs Sex: Female : 1955 Arrival Date: 11/27/2021 Time: 12:11 Bed 5 Private MD: YANNI Physician Fidencio Ford HPI: 11/27 14:33 This 66 yrs old Female presents to ER via Wheelchair with complaints of barry Shortness Of Breath. 14:33 The patient has shortness of breath at rest, with light activity. Onset: The barry symptoms/episode began/occurred 2 day(s) ago. Duration: The symptoms are continuous, and are steadily getting worse. The patient's shortness of breath is aggravated by exertion, light activity, supine position, is alleviated by rest, application of supplemental oxygen. Associated signs and symptoms: The patient has no apparent associated signs or symptoms. Severity of symptoms: At their worst the symptoms were moderate in the emergency department the symptoms are unchanged. The patient has experienced similar episodes in the past, multiple times. Historical: - Allergies: 12:21 No Known Drug Allergies; ll1 - PMHx: 12:21 Diabetes - NIDDM; Hypothyroidism; Hypertension; Hyperlipidemia; CHF; Sleep Apnea; ll1 - PSHx: 12:21 gastric bypass; neck SX; Cholecystectomy; hysterectomy; ll1 - Immunization history:: Client reports receiving the 2nd dose of the Covid vaccine. - Social history:: Smoking status: Patient denies any tobacco usage or history of. ROS: 14:34 Constitutional: Negative for fever, chills, and weight loss, Eyes: Negative for injury, barry pain, redness, and discharge, ENT: Negative for injury, pain, and discharge, Neck: Negative for injury, pain, and swelling, Cardiovascular: Negative for chest pain, palpitations, and edema, Abdomen/GI: Negative for abdominal pain, nausea, vomiting, diarrhea, and constipation, Back: Negative for injury and pain, : Negative for injury, bleeding, discharge, and swelling, Skin: Negative for injury, rash, and discoloration, Neuro: Negative for headache, weakness, numbness, tingling, and seizure, Psych: Negative for depression, anxiety, suicide ideation, homicidal ideation, and hallucinations, Allergy/Immunology: Negative for hives, rash, and allergies, Endocrine: Negative for neck swelling, polydipsia, polyuria, polyphagia, and marked weight changes, Hematologic/Lymphatic: Negative for swollen nodes, abnormal bleeding, and unusual bruising. 14:34 Respiratory: Positive for cough, with no reported sputum, shortness of breath, at rest. 14:34 MS/extremity: Positive for swelling, of the left leg. Exam: 14:34 Constitutional: This is a well developed, well nourished patient who is awake, alert, barry and in no acute distress. Head/Face: Normocephalic, atraumatic. Eyes: Pupils equal round and reactive to light, extra-ocular motions intact. Lids and lashes normal. Conjunctiva and sclera are non-icteric and not injected. Cornea within normal limits. Periorbital areas with no swelling, redness, or edema. ENT: Nares patent. No nasal discharge, no septal abnormalities noted. Tympanic membranes are normal and external auditory canals are clear. Oropharynx with no redness, swelling, or masses, exudates, or evidence of obstruction, uvula midline. Mucous membranes moist. Neck: Trachea midline, no thyromegaly or masses palpated, and no cervical lymphadenopathy. Supple, full range of motion without nuchal rigidity, or vertebral point tenderness. No Meningismus. Chest/axilla: Normal chest wall appearance and motion. Nontender with no deformity. No lesions are appreciated. Cardiovascular: Regular rate and rhythm with a normal S1 and S2. No gallops, murmurs, or rubs. Normal PMI, no JVD. No pulse deficits. Respiratory: Lungs have equal breath sounds bilaterally, clear to auscultation and percussion. No rales, rhonchi or wheezes noted. No increased work of breathing, no retractions or nasal flaring. Abdomen/GI: Soft, non-tender, with normal bowel sounds. No distension or tympany. No guarding or rebound. No evidence of tenderness throughout. Back: No spinal tenderness. No costovertebral tenderness. Full range of motion. Female : Normal external genitalia. Skin: Warm, dry with normal turgor. Normal color with no rashes, no lesions, and no evidence of cellulitis. 14:38 ECG was reviewed by the Attending Physician. [facility] Vital Signs: 12:19 BP 110 / 57; Pulse 65; Resp 18; Temp 97.8; Pulse Ox 95% on R/A; Weight 108.86 kg; ll1 Height 5 ft. 4 in. (162.56 cm); Pain 0/10; 15:21 BP 95 / 57; Pulse 62; Resp 18; Pulse Ox 100% ; Pain 0/10; jh6 17:00 BP 111 / 64; Pulse 58; Resp 18; Pulse Ox 100% ; Pain 0/10; jh6 18:00 BP 119 / 77; Pulse 61; Resp 18; Temp 98.0(O); Pulse Ox 100% ; Pain 0/10; jh6 12:19 Body Mass Index 41.20 (108.86 kg, 162.56 cm) ll1 MDM: 14:22 Patient medically screened. barry 14:35 Differential diagnosis: Bronchitis CHF exacerbation, Chronic Obstructive Pulmonary barry Disease pneumonia, pulmonary edema, reactive airway disease, Unstable Angina. Differential Diagnosis. The patient's Wells Deep Vein Thrombosis Score was calculated as follows: Total Score: 0-2 Pts- Low Risk. The patient's pulmonary embolism risk score was calculated as follows: Total Score: 0-2 points. This patient was found to be at low risk for a pulmonary embolism by using the Well's assessment criteria. Immunization status: Pneumococcal vaccine: Influenza vaccine: Data reviewed: vital signs, nurses notes, lab test result(s), EKG, radiologic studies, plain films. Data interpreted: manager services: rate is 65 beats/min, rhythm is regular, Pulse oximetry: on room air is 95 %. Test interpretation: by ED physician or midlevel provider: ECG, plain radiologic studies. Counseling: I had a detailed discussion with the patient and/or guardian regarding: the historical points, exam findings, and any diagnostic results supporting the discharge/admit diagnosis, lab results, radiology results. 11/27 13:52 Order name: Basic Metabolic Panel; Complete Time: 16:11 [facility] 11/27 13:52 Order name: CBC with Diff; Complete Time: 16:11 [facility] 11/27 13:52 Order name: LFT's; Complete Time: 16:11 barry 11/27 13:52 Order name: Magnesium; Complete Time: 16:11 barry 11/27 13:52 Order name: NT PRO-BNP; Complete Time: 16:11 [facility] 11/27 13:52 Order name: PT-INR; Complete Time: 16:11 barry 11/27 13:52 Order name: Troponin HS; Complete Time: 16:11 [facility] 11/27 13:52 Order name: SARS-COV-2 RT PCR (Document "Date of Onset" if Symptomatic); Complete Time: [facility] 16:54 11/27 15:08 Order name: Urine Dipstick-Ancillary; Complete Time: 16:11 [facility] 11/27 16:21 Order name: D-Dimer [facility] 11/27 20:01 Order name: CBC with Automated Diff [facility] 11/27 20:01 Order name: CBC with Automated Diff [facility] 11/27 20:01 Order name: Comprehensive Metabolic Panel [facility] 11/27 20:01 Order name: Comprehensive Metabolic Panel [facility] 11/27 13:52 Order name: XRAY Chest (1 view); Complete Time: 16:11 [facility] 11/27 16:18 Order name: US Extremity Venous W Compression Sergey; Complete Time: 17:48 [facility] 11/27 20:01 Order name: Echo with Doppler [facility] 11/27 20:01 Order name: Vent Perfusion VQ Scan [facility] 11/27 20:02 Order name: Lipid Profile [facility] 11/27 20:02 Order name: Lipid Profile [facility] 11/27 20:02 Order name: Magnesium [facility] 11/27 20:02 Order name: Magnesium [facility] 11/27 20:02 Order name: Phosphorus [facility] 11/27 20:02 Order name: Phosphorus [facility] 11/27 20:02 Order name: T4 Free [facility] 11/27 20:02 Order name: T4 Free [facility] 11/27 20:02 Order name: Thyroid Stimulating Hormone [facility] 11/27 20:02 Order name: Thyroid Stimulating Hormone [facility] 11/27 20:35 Order name: Glucose, Ancillary Testing [facility] 11/27 13:52 Order name: EKG; Complete Time: 13:53 [facility] 11/27 13:52 Order name: Cardiac monitoring; Complete Time: 14:20 [facility] 11/27 13:52 Order name: EKG - Nurse/Tech; Complete Time: 14:20 [facility] 11/27 13:52 Order name: IV Saline Lock; Complete Time: 15:12 [facility] 11/27 13:52 Order name: Labs collected and sent; Complete Time: 15:12 [facility] 11/27 13:52 Order name: O2 Per Protocol; Complete Time: 14:20 [facility] 11/27 13:52 Order name: O2 Sat Monitoring; Complete Time: 14:20 [facility] 11/27 13:52 Order name: Urine Dipstick-Ancillary (obtain specimen); Complete Time: 15:11 [facility] 11/27 14:22 Order name: Cardoza; Complete Time: 15:11 [facility] 11/27 19:35 Order name: CONS Physician Consult [facility] 11/27 20:01 Order name: Heart Healthy [facility] 11/27 20:01 Order name: Low Sodium [facility] EC:38 Rate is 65 beats/min. Rhythm is regular. QRS [place] is Normal. [place] interval is normal. QRS barry interval is normal. QT interval is normal. No Q waves. T waves are Normal. No ST changes noted. Clinical impression: NSR w/ Non-specific ST/T Changes and No evidence of ischemia. Interpreted by me. Reviewed by me. Administered Medications: 15: Drug: Lasix (furosemide) 40 mg Route: IVP; Site: left hand; [facility] 17:31 Drug: Potassium Effervescent Tablet 50 mEq Route: PO; [facility] 18:41 Drug: Lovenox (enoxaparin) 100 mg Route: Sub-Q; Site: abdomen; [facility] Disposition Summary: 11/27/21 17:50 Hospitalization Ordered Hospitalization Status: Observation barry Provider: Catalino Gillis cha Location: Telemetry/MedSurg (observation) barry Condition: Stable barry Problem: new barry Symptoms: have improved barry Bed/Room Type: Standard [facility] Room Assignment: 219(11/27/21 20:11) mw Diagnosis - Type 2 diabetes mellitus with hyperglycemia barry - Morbid (severe) obesity due to excess calories barry - Dyspnea barry - Chest pain, unspecified barry - Unspecified combined systolic (congestive) and diastolic (congestive) heart failure barry Forms: - Medication Reconciliation Form barry - SBAR form barry Signatures: Dispatcher [employer] [facility] Radha Navarro RN RN mw Anderson, Corey, MD MD cha Lewis, Lynsay, RN RN 1 Leonie Ralph RN RN 6 Corrections: (The following items were deleted from the chart) : 17:50 barry mw
[2021-11-27] MEDS ORDERED: ENOXAPARIN 100 MG/ML SYR SQ ONE ×2 (18:37→20:30)
[2021-11-27] MEDS ORDERED: ONDANSETRON 4 MG/2 ML VIAL IV PRN (20:00)
[2021-11-27] MEDS: INSULIN -REGULAR HUMAN 50 UNIT/0.5 ML ML SQ SCH (20:26)
[2021-11-27] MEDS ORDERED: ALBUTEROL 2.5 MG/3 ML NEB SOL NEB PRN (20:31)
[2021-11-27] MEDS ORDERED: ENOXAPARIN 30 MG/0.3 ML SQ ONE (20:31)
[2021-11-27] MEDS ORDERED: IPRATROPIUM BROM 0.5MG/2.5ML NEB PRN (20:31)
[2021-11-27] MEDS: TRAZODONE 50 MG TABLET PO SCH (21:00)
[2021-11-27 21:42] VITALS: BMI 41.1
--- NOTE | 2021-11-27 21:46 | P.HP ---
Certification for Inpatient Patient admitted to: Observation With expected LOS: <2 Midnights Patient will require the following post-hospital care: None Practitioner: I am a practitioner with admitting privileges, knowledge of patient current condition, hospital course, and medical plan of care. Services: Services provided to patient in accordance with Admission requirements found in Title 42 Section 412.3 of the Code of Federal Regulations Patient History Date of Service: 11/27/21 Reason for admission: dyspnea History of Present Illness: Ms. Liu is a 66 yo F with CHF, DM, HTN, HLD, KWAKU, hypothyroidism who reports one week of increased shortness of breath and dyspnea on exertion. Symptoms have been worse over the past two days. She also reports cough, lower leg edema, wheezing, and increased fatigue. Denies PND and orthopnea. She says she feels like she has too much fluid on her. She has been taking 60 of lasix PO daily at home. She saw her train starter today, who recommended she go to the ED. CXR shows no volume overload, BNP 281. Ddimer 505. ED Physician would like patient admitted for observation to rule out PE on VQ scan. CXR IMPRESSION: No acute cardiopulmonary process. Venous Doppler US IMPRESSION: No DVT in either lower extremity. Allergies No Known Drug Allergies Allergy (Verified 10/01/15 13:23) Unknown No Known Allergies Allergy (Uncoded 01/04/16 21:00) Unknown Home Medications: Atorvastatin Calcium [Lipitor*] 10 mg PO DAILY 03/29/19 Divalproex ER [Depakote *ER] 500 mg PO BEDTIME 03/29/19 Empagliflozin [Jardiance] 1 tab PO DAILY 03/29/19 Furosemide [Lasix*] 20 mg PO DAILY 03/29/19 Levothyroxine [Synthroid*] 2 tab PO [id number] 03/29/19 Meloxicam [Mobic*] 15 mg PO DAILY 03/29/19 Multivitamin/Iron/Folic Acid [Centrum Women Tablet] 1 tab PO DAILY 03/29/19 Oxybutynin Chloride 2 tab PO DAILY 03/29/19 Trazodone [Desyrel*] 50 mg PO BEDTIME 03/29/19 Venlafaxine HCl [Venlafaxine HCl ER] 150 mg PO DAILY 03/29/19 Aspirin [Aspirin EC 81 MG] 81 mg PO DAILY #30 tablet. 05/06/20 Clopidogrel Bisulfate [Plavix*] 75 mg PO DAILY #30 tablet 05/06/20 Fluticasone Propionate [Flovent Diskus] 1 puff IH BID 05/06/20 Gabapentin 1 cap PO BID 05/06/20 Meclizine HCl 1 tab PO DAILY 05/06/20 Metoprolol Tartrate [Lopressor*] 25 mg PO BID 30 Days #60 tab 05/06/20 Scopolamine 1 patch TD SEECOM PRN 05/06/20 Tramadol HCl [Ultram] 1 tab PO DAILY 05/06/20 - Past Medical/Surgical History Diabetic: Yes -: HTN -: Hypothyroidism -: Depression with insomnia -: Obstructive sleep apnea -: PTSD -: Diabetes mellitus -: Morbid obesity -: GERD -: CHF, diastolic dysfunction -: Achilles tendon repair -: Cervical neck surgery -: Gastric bypass -: Hernia repair -: Cholecystectomy -: Hysterectomy Psychosocial/ Personal History: The patient lives by herself. She is a . She has 2 children. - Family History Father Notes: adopted Mother Notes: adopted - Social History Smoking Status: Never smoker Alcohol use: No CD- Drugs: No Caffeine use: Yes Review of Systems 10-point ROS is otherwise unremarkable General: Malaise Respiratory: Cough, Shortness of Breath, SOB with Excertion, Wheezing Cardiovascular: Edema Physical Examination - Physical Exam General: Alert, In no apparent distress, Obese HEENT: Atraumatic, PERRLA, Mucous membr. moist/pink, EOMI, Sclerae nonicteric Neck: Supple, 2+ carotid pulse no bruit, No LAD, Without JVD or thyroid abnormality Respiratory: Diminished Cardiovascular: No edema, Normal pulses, Regular rate/rhythm, Normal S1 S2 Capillary refill: <2 Seconds Gastrointestinal: Normal bowel sounds, No tenderness Musculoskeletal: No tenderness Integumentary: No rashes Neurological: Normal speech, Normal strength at 5/5 x4 extr, Normal tone, Normal affect Lymphatics: No axilla or inguinal lymphadenopathy - Studies Laboratory Data (last 24 hrs) 11/27/21 14:44: PT 10.8, INR 0.94 11/27/21 14:44: WBC 7.70, Hgb 12.1, Hct 36.9, Plt Count 313 11/27/21 14:44: Sodium 139, Potassium 3.4 L, BUN 17, Creatinine 0.79, Glucose 152 H, Magnesium 1.9, Total Bilirubin 0.3, AST 17, ALT 14, Alkaline Phosphatase 106 Assessment and Plan - Problems (Diagnosis) (1) CHF (congestive heart failure) Onset Date: 03/08/17 Current Visit: No Status: Acute Qualifiers: Heart failure type: diastolic Heart failure chronicity: acute on chronic Qualified Code(s): I50.33 - Acute on chronic diastolic (congestive) heart failure (2) Diabetes Current Visit: No Status: Acute (3) Hypertension Current Visit: No Status: Acute (4) Morbid obesity Current Visit: No Status: Acute (5) Hyperlipidemia Onset Date: 01/05/18 Current Visit: No Status: Chronic Qualifiers: Hyperlipidemia type: unspecified Qualified Code(s): E78.5 - Hyperlipidemia, unspecified (6) Hypothyroidism Onset Date: 01/05/18 Current Visit: No Status: Chronic Qualifiers: Hypothyroidism type: unspecified Qualified Code(s): E03.9 - Hypothyroidism, unspecified (7) Obstructive sleep apnea Onset Date: 01/05/18 Current Visit: No Status: Chronic - Plan cardiology consulted continue lasix, daily weights, low sodium diet, and fluid restriction O2 as needed, breathing tx as needed, CPAP at bedtime ECHO pending VQ scan pending, continue full dose lovenox sliding scale insulin and accuchecks reconcile and continue home medications Discharge Plan: Home Plan to discharge in: 24 Hours - Advance Directives Does patient have a Living Will: Yes Does patient have a Durable POA for Healthcare: Yes - Code Status/Comfort Care Code Status Assessed: Yes (full code ) Critical Care: No Time Spent Managing Pts Care (In Minutes): 70
[2021-11-27] MEDS: DIVALPROEX ER 250 MG TAB PO SCH (22:34)
[2021-11-27] MEDS: ATORVASTATIN 10 MG TAB PO SCH (22:51)
[2021-11-28] MEDS: ACETAMINOPHEN 500 MG TAB PO PRN ×4 (02:52→22:22)
[2021-11-28] MEDS: Enoxaparin 120 MG/0.8 ML SYR SQ SCH ×2 (05:23→17:40)
[2021-11-28 06:01] LABS: Absolute Lymphocytes (CBC) 3.1 K/uL (0.7-4.9); Hematocrit 35.3 % (36.0-45.0); Lymphocytes % 44.5 % (15.3-44.8); MPV 7.6 fL (7.6-11.3); RBC Red Blood Cell Count 3.54 M/uL (3.86-4.86)
[2021-11-28] MEDS ORDERED: ENOXAPARIN 100 MG/ML SYR SQ SCH (06:30)
[2021-11-28 06:37] LABS: Albumin 2.7 g/dL (3.4-5.0); Bilirubin Total 0.3 mg/dL (0.2-1.0); Magnesium 2.2 mg/dL (1.8-2.4); Phosphorus 4.2 mg/dL (2.5-4.9); Potassium 3.8 mmol/L (3.5-5.1); Protein, Total 6.2 g/dL (6.4-8.2); Thyroid Stimulating Hormone 3.72 uIU/mL (0.360-3.740)
[2021-11-28] MEDS: INSULIN -REGULAR HUMAN 50 UNIT/0.5 ML ML SQ SCH ×4 (07:30→21:00)
[2021-11-28] MEDS: ATORVASTATIN 10 MG TAB PO SCH (08:05)
[2021-11-28] MEDS ORDERED: FUROSEMIDE 20 MG/ 2ML VIAL IV SCH (09:00)
--- NOTE | 2021-11-28 12:42 | RAD REPORT ---
EXAM DESCRIPTION: CT - Chest For Pe Angio - 11/28/2021 12:35 pm CLINICAL HISTORY: Hypoxia r/o PE COMPARISON: Chest For Pe Angio dated 02/21/2018 FINDINGS: Chest Wall: No suspicious thyroid nodules or pathologic lymphadenopathy. Lungs: No acute abnormality. Mild scattered areas of scarring. Pleura: No significant effusions or pneumothorax. Mediastinum/aakash: No pathologic lymphadenopathy. Pulmonary arteries/Aorta: No filling defect identified. No aortic aneurysm. The subsegmental pulmonar y arteries are not well evaluated due to motion Heart: No significant pericardial effusion. Normal heart size. Upper abdomen: Cholecystectomy. Keisha-en-Y gastric bypass. Thickened distal esophagus. Bones: No acute abnormality. Multilevel degenerative changes are present in the spine. All CT scans are performed using dose optimization technique as appropriate and may include automated exposure control or mA/KV adjustment according to patient size. IMPRESSION: Negative for pulmonary embolism. No other acute findings are present within the chest.
[2021-11-28] MEDS ORDERED: POTASSIUM CL SA 10 MEQ TAB PO ONE (16:00)
--- NOTE | 2021-11-28 16:24 | P.PN ---
Subjective Date of Service: 11/28/21 Chief Complaint: dyspnea Patient reports persistent chest tightness and shortness of breath. She also reports increased lower extremity swelling. Physical Examination - Vital Signs Temperature: 97.4 F Blood Pressure: 110/57 Pulse: 68 Respirations: 18 Pulse Ox (%): 97 - Physical Exam General: In no apparent distress, Oriented x3 HEENT: PERRLA, Sclerae nonicteric Neck: Supple, JVD not distended Respiratory: Clear to auscultation bilaterally, Normal air movement Cardiovascular: Regular rate/rhythm, Normal S1 S2, No murmurs, Edema (Bilateral legs) Gastrointestinal: Normal bowel sounds, Soft and benign, Non-distended, No tenderness Musculoskeletal: No erythema, No tenderness Integumentary: No rashes, No cyanosis Neurological: Normal strength at 5/5 x4 extr Assessment And Plan - Current Problems (Diagnosis) (1) Acute on chronic diastolic heart failure Current Visit: Yes Status: Acute (2) Type 2 diabetes mellitus Current Visit: No Status: Acute (3) Hypothyroidism Onset Date: 01/05/18 Current Visit: No Status: Chronic Qualifiers: Hypothyroidism type: unspecified Qualified Code(s): E03.9 - Hypothyroidism, unspecified (4) Obesity Onset Date: 01/05/18 Current Visit: No Status: Chronic (5) Obstructive sleep apnea Onset Date: 01/05/18 Current Visit: No Status: Chronic (6) Acute asthmatic bronchitis Current Visit: No Status: Acute (7) Hypertension Current Visit: No Status: Acute - Plan Troponin is negative. CTA thorax is negative for pulmonary embolism or pulmonary edema. Patient seen by cardiology-Dr. Hinson who recommended to continue IV diuresis. Lasix 40 mg IV every 12. Bronchodilators for possible acute asthma. Patient has soft blood pressure. Hold metoprolol for now. Currently saturating at 98% on 3 L oxygen. Wean off oxygen. Reconcile and continue other home medications.
[2021-11-28] MEDS: FUROSEMIDE 40 MG/4 ML VIAL IV SCH (16:49)
--- NOTE | 2021-11-28 17:39 | CON ---
Date of Consultation: 11/28/2021 Reason For Consultation: Heart failure. History Of Present Illness: A 66-year-old female with diastolic heart failure, diabetes, hypertensio n, dyslipidemia, obstructive sleep apnea, who presented with worsening shortness of breath, lower ext remity edema, and significant fatigue and shortness of breath even at rest with orthopnea. Denies hodges ving any chest pain. No nausea, vomiting, diarrhea. No other complaints. Past Medical History: As outlined above in the HPI. Medications: Refer reconciliation sheet for detailed list. Allergies: NO KNOWN DRUG ALLERGIES. Family History: No premature coronary artery disease or cancer. Social History: Does not smoke or drink. Does not use any drugs. Review of Systems: All systems reviewed and they were negative except as mentioned in the HPI. Physical Examination: Vital Signs: Reviewed. Head And Neck: Pupils are equal, reactive to light. Intact eye movements. M ild JVD. No cervical lymphadenopathy. Neck: Supple. Thyroid is not enlarged. Lungs: Crackles heard in bases. No accessory muscle use or muscle retraction. Heart: Regular rate an d rhythm. No extra sounds. Abdomen: Soft, nontender. Bowel sounds positive. No organomegaly. No masses or hernia. No rigidi ty or rebound. Extremities: 1 to 2+ pitting edema bilaterally. No clubbing, cyanosis. Intact pulses. Skin: No rash noted. Neurologic: Alert, awake, oriented x3. No acute focal deficits appreciated. Investigations: Hemoglobin is 11.4 and sodium 141, BUN is 20, creatinine 0.7. Assessment And Recommendation: 1.Acute on chronic diastolic heart failure exacerbation. Increase Lasix to 40 mg IV q.12 hours. Mo nitor BUN, creatinine, electrolytes, and low-salt diet and daily body weight. 2.Hypertension. Blood pressure is controlled. SR/MODL Voice ID: [id number] Report ID: [id number]
[2021-11-28] MEDS: DIVALPROEX ER 250 MG TAB PO SCH (21:09)
[2021-11-28] MEDS: TRAZODONE 50 MG TABLET PO SCH (21:10)
[2021-11-29 06:04] LABS: Absolute Lymphocytes (CBC) 3.3 K/uL (0.7-4.9); Hematocrit 36.1 % (36.0-45.0); Lymphocytes % 48.8 % (15.3-44.8); MPV 7.3 fL (7.6-11.3); RBC Red Blood Cell Count 3.62 M/uL (3.86-4.86)
[2021-11-29] MEDS: FUROSEMIDE 40 MG/4 ML VIAL IV SCH (06:10)
[2021-11-29 06:13] LABS: Potassium 3.7 mmol/L (3.5-5.1)
[2021-11-29] MEDS: INSULIN -REGULAR HUMAN 50 UNIT/0.5 ML ML SQ SCH ×2 (07:30→10:56)
[2021-11-29] MEDS: Enoxaparin 120 MG/0.8 ML SYR SQ SCH (08:17)
[2021-11-29] MEDS: ACETAMINOPHEN 500 MG TAB PO PRN (08:17)
[2021-11-29] MEDS: ATORVASTATIN 10 MG TAB PO SCH (08:18)
[2021-11-29] MEDS ORDERED: POTASSIUM CL SA 10 MEQ TAB PO ONE (09:00)
[2021-11-29] MEDS ORDERED: VENLAFAXINE HCL XR 75 MG CAP PO SCH (12:03)
[2021-11-29] MEDS ORDERED: TRAMADOL HCL 50 MG TAB PO SCH (12:04)
[2021-11-29 12:22] VITALS: O2SAT 97
[2021-11-29 13:45] VITALS: BP 103/55; TEMP 97.1
--- NOTE | 2021-11-29 14:11 | P.DS ---
Admission Date: 11/28/21 Discharge Date: 11/29/21 Disposition: ROUTINE DISCHARGE Discharge Condition: FAIR Reason for Admission: dyspnea - Problems (1) Acute on chronic diastolic heart failure Current Visit: Yes Status: Acute (2) Type 2 diabetes mellitus Current Visit: No Status: Acute (3) Hypothyroidism Onset Date: 01/05/18 Current Visit: No Status: Chronic Qualifiers: Hypothyroidism type: unspecified Qualified Code(s): E03.9 - Hypothyroidism, unspecified (4) Obesity Onset Date: 01/05/18 Current Visit: No Status: Chronic (5) Obstructive sleep apnea Onset Date: 01/05/18 Current Visit: No Status: Chronic (6) Acute asthmatic bronchitis Current Visit: No Status: Acute (7) Hypertension Current Visit: No Status: Acute Brief History of Present Illness: Ms. Liu is a 66 yo F with CHF, DM, HTN, HLD, KWAKU, hypothyroidism who reports one week of increased shortness of breath and dyspnea on exertion. Symptoms have been worse over the past two days. She also reports cough, lower leg edema, wheezing, and increased fatigue. Denies PND and orthopnea. She stated she felt like she has too much fluid on her. She was taking 60 of lasix PO daily at home. She saw her trim master operator today, who recommended she go to the ED. CXR shows no volume overload, Venous Doppler, no DVT in either lower extremity, BNP 281. Ddimer 505. Hospitalized for further management. Hospital Course: Patient admitted to the medical floor and treated with IV Lasix for CHF exacerbation. CTA thorax was done which was negative for pulmonary embolism. It did show mild scattered areas of scarring. Patient seen and evaluated by cardiology-Dr. Hinson recommended diuresis for possible volume overload. Her troponin was negative. PE has been ruled out. No acute issue at the moment. Patient shortness of breath may be related to pulmonary issues. Noted she has a history of obstructive sleep apnea. Patient deemed stable for discharge. She will continue work-up for her dyspnea as an outpatient. She is informed to follow-up with pulmonary to evaluate for COPD. She may also have symptomatic pulmonary hypertension. Vital Signs/Physical Exam: Temp Pulse Resp BP Pulse Ox 97.1 F 73 18 103/55 L 96 11/29/21 12:00 11/29/21 12:00 11/29/21 12:00 11/29/21 12:00 11/29/21 12:00 General: Alert, In no apparent distress, Oriented x3 HEENT: Mucous membr. moist/pink Neck: JVD not distended Respiratory: Clear to auscultation bilaterally, Normal air movement Cardiovascular: No edema, Regular rate/rhythm, Normal S1 S2 Capillary refill: <2 Seconds Gastrointestinal: Normal bowel sounds, Soft and benign, Non-distended, No tenderness Musculoskeletal: No swelling Integumentary: No rashes Neurological: Normal strength at 5/5 x4 extr Laboratory Data at Discharge: WBC 6.80 K/uL (4.3-10.9) 11/29/21 05:15 Hgb 12.0 g/dL (12.0-15.0) 11/29/21 05:15 Hct 36.1 % (36.0-45.0) 11/29/21 05:15 Plt Count 288 K/uL (152-406) 11/29/21 05:15 PT 10.8 SECONDS (9.5-12.5) 11/27/21 14:44 INR 0.94 11/27/21 14:44 Sodium 140 mmol/L (136-145) 11/29/21 05:15 Potassium 3.7 mmol/L (3.5-5.1) 11/29/21 05:15 BUN 20 mg/dL (7-18) H 11/29/21 05:15 Creatinine 0.76 mg/dL (0.55-1.3) 11/29/21 05:15 Glucose 109 mg/dL (74-106) H 11/29/21 05:15 Phosphorus 4.2 mg/dL (2.5-4.9) 11/28/21 05:04 Magnesium 2.2 mg/dL (1.8-2.4) 11/28/21 05:04 Total Bilirubin 0.3 mg/dL (0.2-1.0) 11/28/21 05:04 AST 18 U/L (15-37) 11/28/21 05:04 ALT 12 U/L (12-78) 11/28/21 05:04 Alkaline Phosphatase 88 U/L (45-117) 11/28/21 05:04 Triglycerides 262 mg/dL (<150) H 11/28/21 05:04 Cholesterol 139 mg/dL (<200) 11/28/21 05:04 HDL Cholesterol 45 mg/dL (40-60) 11/28/21 05:04 Cholesterol/HDL Ratio 3.09 11/28/21 05:04 Home Medications: Atorvastatin Calcium [Lipitor*] 10 mg PO DAILY 03/29/19 Divalproex ER [Depakote *ER] 500 mg PO BEDTIME 03/29/19 Empagliflozin [Jardiance] 1 tab PO DAILY 03/29/19 Furosemide [Lasix*] 20 mg PO DAILY 03/29/19 Levothyroxine [Synthroid*] 2 tab PO [id number] 03/29/19 Multivitamin/Iron/Folic Acid [Centrum Women Tablet] 1 tab PO DAILY 03/29/19 Oxybutynin Chloride 2 tab PO DAILY 03/29/19 Trazodone [Desyrel*] 50 mg PO BEDTIME 03/29/19 Venlafaxine HCl [Venlafaxine HCl ER] 150 mg PO DAILY 03/29/19 Aspirin [Aspirin EC 81 MG] 81 mg PO DAILY #30 tablet. 05/06/20 Clopidogrel Bisulfate [Plavix*] 75 mg PO DAILY #30 tablet 05/06/20 Fluticasone Propionate [Flovent Diskus] 1 puff IH BID 05/06/20 Gabapentin 1 cap PO BID 05/06/20 Meclizine HCl 1 tab PO DAILY 05/06/20 Scopolamine 1 patch TD SEECOM PRN 05/06/20 Tramadol HCl [Ultram] 1 tab PO DAILY 05/06/20 Albuterol Neb [Proventil 0.083% Neb Soln] 2.5 mg NEB [id number] PRN #120 amp 11/29/21 Nebulizer [Aeroneb Go Nebulizer] 1 each QID #1 each 11/29/21 New Medications: Albuterol Neb [Proventil 0.083% Neb Soln] 2.5 mg NEB [id number] PRN #120 amp PRN Reason: Shortness Of Breath Nebulizer [Aeroneb Go Nebulizer] 1 each QID #1 each Diet: ADA Activity: Ad joe Followup: Arturo Carvalho MD [ACTIVE - CAN ADMIT] - 1-2 Weeks Erasmo Rao MD [Primary Care Provider] - 1-2 Weeks Time spent managing pt's care (in minutes): 36
[2021-11-29] MEDS ORDERED: GABAPENTIN 300 MG CAP PO SCH (21:00)
[2021-11-29] MEDS ORDERED: HOME MED 1 EA UNK (Fluticasone Propionate [Flovent Diskus] 50 MCG Blst.W.Dev) IH SCH (21:00)
[2021-11-30] MEDS ORDERED: LEVOTHYROXINE SOD 0.075 MG TAB PO SCH (06:00)
[2021-11-30] MEDS ORDERED: HOME MED 1 EA UNK (Empagliflozin [Jardiance] 10 MG Tablet) PO SCH (09:00)
[2021-11-30] MEDS ORDERED: CLOPIDOGREL 75 MG TABLET PO SCH (09:00)
[2021-11-30] MEDS ORDERED: MULTIVITAMIN TAB PO SCH (09:00)
[2021-11-30] MEDS ORDERED: FUROSEMIDE 40 MG TABLET PO SCH (09:00)
[2021-11-30] MEDS ORDERED: OXYBUTYNIN CHLORIDE 5 MG TAB PO SCH (09:00)
== END 2021-11-29 15:52 | disposition home or self-care (01) | DRG 291 ==
LOC: ER 12:08 → ERHOLD 20:21 → INTOOBSV 20:21 → OBSVTOIN 20:21 → 2ND 20:41 → OBSVTOIN 11-28 16:17
PROVIDERS: ADMIT Internal Medicine; ATTEND Internal Medicine
DX: I11.0 Hypertensive heart disease with heart failure (principal); I50.33 Acute on chronic diastolic (congestive) heart failure; Z68.41 Body mass index [BMI] 40.0-44.9, adult; J45.901 Unspecified asthma with (acute) exacerbation; E11.9 Type 2 diabetes mellitus without complications; E03.9 Hypothyroidism, unspecified; G47.33 Obstructive sleep apnea (adult) (pediatric); E66.9 Obesity, unspecified; E78.5 Hyperlipidemia, unspecified; Z98.84 Bariatric surgery status; Z20.822 Contact with and (suspected) exposure to COVID-19
CPT/HCPCS: 36415; 51702; 71045; 71275; 80048; 80053; 80061; 80076; 81003; 82947; 83735; 83880; 84100; 84439; 84443; 84484; 85025; 85379; 85610; 93005; 93970; 94760; 96372; 96374; 99285; G0378; J1650; J1940; Q9967; U0003

== ENCOUNTER 2022-07-12 21:02 | Emergency (ER) | payer OTHER ==
[2012-01-30 21:04] VITALS: BP 138/83
--- OUTSIDE RECORDS SUMMARY | 2022-07-12 21:09 | XMS REPORT | Continuity of Care Document ---
:1955 Author Organization [facility] t Address [address] [place] [address] Dr. L[address] [place] [address] Care Team Providers Name Role Phone Jonah CHAVEZ, Erasmo Primary Care Physician [phone] AILYN SPRING Attending Clinician Unavailable MARY LANDAVERDE Attending Clinician Unavailable Red Rios MD Attending Clinician RED RIOS Attending Clinician Unavailable Doctor Unassigned, [place] Attending Clinician Unavailable CHRISTIAN DIAZ Attending Clinician Unavailable ISRRAEL GAONA Attending Clinician Unavailable AILYN SPRING Attending Clinician Unavailable DR AILYN SPRING Admitting Clinician Unavailable WILLIAM AVILA Admitting Clinician Unavailable Payers Payer Name Policy Type Policy Number Effective Date Expiration Date S ource HUMANA O [id number] 2021 00:00:00 MEDICARE PART A [id number] 2013 \T\ B 00:00:00 Problems Condition Condition Condition Status Onset Resolution Last Treating Co mments Source Name Details Category Date Date Treatment Clinician Date Overactive Overactive Disease Active Overview : Univers bladder bladder 02-22 Formattin ity o f 00:00: g of this [place] 00 note Medical might be Branch different from the original. Added automatic ally from request for surgery [id number] Sepsis, Sepsis, Disease Active [facility] due to due to 5[facility]14 [facility] unspecifie unspecifie 00:00: Me dical d organism d organism 00 Ce nter Bowel and Bowel and Disease Active [facility] bladder bladder 5-14 [facility] incontinen incontinen 00:00: Me dical ce ce 00 Center DM DM Disease Active [facility] (diabetes (diabetes 5-14 [facility] mellitus), mellitus), 00:00: Me dical type 2 type 2 00 Center Essential Essential Disease Active [facility] hypertensi hypertensi 5-14 Estella kes on on 00:00: Medical 00 Center Low back Low back Disease Active [facility] pain pain 5[facility]14 [facility] 00:[facility]: Medical 00 Center KWAKU KWAKU Disease Active [facility] (obstructi (obstructi 2-14 Estella kes ve sleep ve sleep 00:00: Medica l apnea) apnea) 00 Center Thyroid Thyroid Disease Active [facility] disease disease 2-14 [facility] 00:00: Medical 00 Center Morbid Morbid Disease Active [facility] obesity obesity 2-14 [facility] 00:00: Medical 00 Center Essential Essential Disease Active [facility] hypertensi hypertensi 2-14 Estella kes on on 00:00: Medical 00 Center Mastitis Mastitis Disease Active [facility] of left of left 2-14 [facility] breast breast 00:00: Medical unrelated unrelated 00 Cent er to to or or breastfeed breastfeed ing ing Diabetes Diabetes Disease Active [facility] mellitus mellitus 2-14 [facility] 00:00: Medical 00 Center S/P S/P Disease Active [facility] cervical cervical [...] Propensi Active Swelling Method i ty to 8 st adverse 00:00: Hospita reaction 00 l s to drug Shrimp Propensi Active Swelling Method i ty to 804 st adverse 00:00: Hospita reaction 00 l s to drug Iodine Propensi Active Swelling [facility] ty to 804 [facility] adverse 00:00: Medical reaction 00 Center s Shrimp Propensi Active Swelling [facility] ty to 804 [facility] adverse 00:00: Medical reaction 00 Center s IODINE DRUG Active Swelling Univers INGREDI 05-20 ity of 00:00: [place] 00 Medical Branch SHRIMP DRUG Active Swelling Univers INGREDI 05-20 ity of 00:00: 00 Medical Branch IODINE DA Active U [facility] CONTRAST 05-27 00:00: Orthope 00 dic Hospita l No Known DA Active U [facility] Drug 05-27 [place] Allergie 00:00: Orthope s 00 dic Hospita l No Known DA Active U 2002-0 [facility] Food 05-27 [place] Allergie 00:00: Orthope s 00 dic Hospita l No Known DA Active U 2002-0 [facility] Other 05-27 [place] Allergie 00:00: Orthope s 00 dic Hospita l iodine DA Active U 1996-0 [facility] 8-29 [place] 00:00: Orthope 00 dic Hospita l Social History Social Habit Start Date Stop Date Quantity Comments Source Exposure to 2022-04-12 2022-04-22 [facility]00 [place] [facility] (event) Branch Tobacco use and 2017-11-30 2017-11-[address] [facility] Estella kes exposure 00:00:00 00:00:00 [facility] Alcohol intake 2017-11-30 2017-11-[address] [facility]ik es 00:00:00 00:00:00 non-drinker of Medical Ce nter alcohol (finding) Sex Assigned At [address] [facility] Estella kes 00:00:00 00:00:00 [facility] Smoking Status Start Date Stop Date Source Never smoked tobacco [facility] Medications Ordered Filled Start Stop Current Ordering Indication Dosage Frequency Signature Comments Components Source Medication Medication Date Date Medication? Clinician (SIG) Name Name clopidogreL Yes 75mg Take 75 mg Univers 75 mg 6-02 by mouth ity of tablet 09:48: daily. [place] [address] Medical Branch aspirin 81 Yes Take 1 Unive rs mg Cap 6-02 TAB-CAP/M2 ity of 09:48: by mouth [place] [address] daily. Medical Branch carvediloL Yes 6.25mg Take 6.25 Univers 6.25 mg 6-02 mg by ity of tablet 09:48: mouth 2 [place] [address] (two) Medical times Branch daily with meals. gabapentin Yes 300mg Take 300 Un luigi 300 mg 6-02 mg by ity of capsule 09:48: mouth 2 [place] [address] (two) Medical times Branch daily. atorvastati Yes 10mg Take 10 mg Univers n 10 mg 6-02 by mouth ity of tablet 09:48: at [place] [address] bedtime. Medical Branch scopolamine Yes 1.5mg Apply 1.5 Univers transdermal 6-02 mg to ity of 1 mg over 3 09:48: area(s) as [facility] patch 18 needed. Medica l Branch EFFEXOR Yes None Univers ORAL 6-02 Entered ity of 09:48: [place] [address] Medical Branch MULTIVITAMI Yes 1{tbl} Take 1 Un luigi N ORAL 6-02 tablet by ity of 09:48: mouth. [place] [address] Medical Branch venlafaxine Yes 150mg Take 150 U nivers XR 150 mg 6-02 mg by ity of 24 hr 09:48: mouth. [place] [address] Medical Branch clopidogreL Yes 75mg Take 75 mg Univers 75 mg 6-02 by mouth ity of tablet 09:48: daily. [place] [address] Medical Branch aspirin 81 0 Yes Take 1 Unive rs mg Cap 6-02 TAB-CAP/M2 ity of 09:48: by mouth [place] [address] daily. Medical Branch carvediloL Yes 6.25mg Take 6.25 Univers 6.25 mg 6-02 mg by ity of tablet 09:48: mouth 2 [place] [address] (two) Medical times Branch daily with meals. gabapentin Yes 300mg Take 300 Un [facility] 300 mg 6-02 mg by ity of capsule 09:48: mouth 2 [place] [address] (two) Medical times Branch daily. atorvastati Yes 10mg Take 10 mg Univers n 10 mg 6-02 by mouth ity of tablet 09:48: at [place] [address] bedtime. Medical Branch scopolamine Yes 1.5mg Apply 1.5 Univers transdermal 6-02 mg to ity of 1 mg over 3 09:48: area(s) as [facility] patch 18 needed. Medica l Branch EFFEXOR Yes None Univers ORAL 6-02 Entered ity of 09:48: [place] [address] Medical Branch MULTIVITAMI Yes 1{tbl} Take 1 Un luigi N ORAL 6-02 tablet by ity of 09:48: mouth. [place] [address] Medical Branch venlafaxine Yes 150mg Take 150 U nivers XR 150 mg 6-02 mg by ity of 24 hr 09:48: mouth. [place] [address] Medical Branch cephALEXin Yes [id number] 500mg Take 1 Univers 500 mg 6-02 capsule by ity of capsule 00:00: mouth 2 [place] [address] (two) Medical times Branch daily. ibuprofen 0 Yes [id number] 600mg Take 1 Univers 600 mg 6-02 tablet by ity of tablet 00:00: mouth [place] 00 every 6 Medical (six) Branch hours as needed for Pain (scale 1-3) or Pain (scale 4-6). oxyCODONE 5 2021-0 Yes [id number] 5mg Take 1 Univ ers mg 6-02 tablet by ity of immediate 00:00: mouth [place] release 00 every 6 Medical tablet (six) Branch hours as needed for Pain (scale 7-10). Indication s: acute pain acetaminoph 2021-0 Yes [id number] 650mg Take 1 Univers en (TYLENOL 6-02 tablet by ity of 8 HOUR) 650 00:00: mouth [place] mg CR 00 every 6 Medical tablet (six) Branch hours as needed for Pain. cephALEXin 2021-0 Yes [id number] 500mg Take 1 Univers 500 mg 6-02 capsule by ity of capsule 00:00: mouth 2 [place] 00 (two) Medical times Branch daily. ibuprofen 2021-0 Yes [id number] 600mg Take 1 Univers 600 mg 6-02 tablet by ity of tablet 00:00: mouth [place] 00 every 6 Medical (six) Branch hours as needed for Pain (scale 1-3) or Pain (scale 4-6). oxyCODONE 5 2021-0 Yes [id number] 5mg Take 1 Univ ers mg 6-02 tablet by ity of immediate 00:00: mouth [place] release 00 every 6 Medical tablet (six) Branch hours as needed for Pain (scale 7-10). Indication s: acute pain acetaminoph 2021-0 Yes [id number] 650mg Take 1 Univers en (TYLENOL 6-02 tablet by ity of 8 HOUR) 650 00:00: mouth [place] mg CR 00 every 6 Medical tablet (six) Branch hours as needed for Pain. furosemide 2021-0 Yes 40mg Take 40 mg U nivers 40 mg 4-30 by mouth 2 ity of tablet 00:00: (two) [place] 00 times Medical daily. Branch furosemide 2022-0 Yes 40mg Take 40 mg U nivers 40 mg 4-30 by mouth 2 ity of tablet 00:00: (two) [place] 00 times Medical daily. Branch KCL 20 mEq 2021-0 Yes 20meq Take 20 Uni vers tablet 3-25 mEq by ity of 00:00: mouth [place] 00 daily. Medical Branch KCL 20 mEq 2021-0 Yes 20meq Take 20 Uni vers tablet 3-25 mEq by ity of 00:00: mouth daily. Medical Branch mupirocin 2 Yes Apply to Un luigi % ointment 2-18 affected ity o f 00:00: area(s) 2 [place] (two) Medical times Branch daily. mupirocin 2 Yes Apply to Un luigi % ointment 2-18 affected ity o f 00:00: area(s) 2 [place] (two) Medical times Branch daily. valACYclovi 2020-10 Yes [id number] 1g Take 1 Univers r 1 gram 2-07 tablet by ity of tablet 00:00: mouth 00 daily. Medical Branch valACYclovi 2020-10 Yes [id number] 1g Take 1 Univers r 1 gram 2-07 tablet by ity of tablet 00:00: mouth 00 daily. Medical Branch clotrimazol Yes Apply to Un luigi e-betametha 6-25 area(s) 2 ity of sone 00:00: (two) [place] (LOTRISONE) 00 times Medical cream daily. Branch clotrimazol Yes Apply to Un lu[facility] e-betametha 6-25 area(s) 2 ity of sone 00:00: (two) [place] (LOTRISONE) 00 times Medical cream daily. Branch meloxicam Yes Univers 15 mg 5-04 ity of tablet 00:00: [place] 00 Medical Branch meloxicam Yes Univers 15 mg 5-04 ity of tablet 00:00: 00 Medical Branch divalproex Yes 2 tabets Uni vers ER 500 mg 5-02 at night ity of 24 hr 00:00: [place] tablet 00 Medical Branch divalproex Yes 2 tabets Uni vers ER 500 mg 5-02 at night ity of 24 hr 00:00: [place] tablet 00 Medical Branch JARDIANCE Yes 1{tbl} Take 1 Univ ers 25 mg Tab 4-26 tablet by ity o f 00:00: mouth 00 daily. Medical Branch levothyroxi Yes TAKE 1 Univ ers ne 137 mcg 4-26 TABLET BY ity of tablet 00:00: MOUTH 00 EVERY Medical MORNING ON Branch EMPTY STOMACH JARDIANCE Yes 1{tbl} Take 1 Univ ers 25 mg Tab 4-26 tablet by ity o f 00:00: mouth 00 daily. Medical Branch levothyroxi Yes TAKE 1 Univ ers ne 137 mcg 4-26 TABLET BY ity of tablet 00:00: MOUTH [place] 00 EVERY Medical MORNING ON Branch EMPTY STOMACH traZODone Yes TAKE 1 Univer s 50 mg 3-16 TABLET BY ity of tablet 00:00: MOUTH 00 EVERYDAY Medical AT BEDTIME Branch traZODone Yes TAKE 1 Univer s 50 mg 3-16 TABLET BY ity of tablet 00:00: MOUTH [place] 00 EVERYDAY Medical AT BEDTIME Branch traZODone Yes 50mg QD Take [address] (DESYREL) 5-18 by mouth [facility] 50 MG 18:46: nightly. Medical tablet 23 [place] montelukast Yes 10mg QD Take [address] [facility] (SINGULAIR) 5-18 by mouth Luke s 10 mg 18:46: every Medical tablet 23 morning. [place] glimepiride Yes 1mg QD Take [address] (AMARYL) 1 5-18 by mouth [facility]ukes MG tablet 18:46: every Medical 23 evening. [place] furosemide Yes 20mg QD Take [address] (LASIX) 40 5-18 by mouth Lukes MG tablet 18:46: every Medical 23 morning . [place] amitriptyli Yes 25mg QD Take [address] [facility] ne (ELAVIL) 5-18 by mouth Luke s 25 MG 18:46: nightly. Medical tablet 23 [place] carvedilol Yes 6.25mg Q.5D Take 6.[address] (COREG) 5-18 mg by Lukes 6.25 MG 18:46: mouth 2 Medical tablet 23 (two) Center times daily. divalproex Yes 1000mg Q.5D Take 1,[address] (DEPAKOTE) 5-18 mg by [facility]ukes 500 MG EC 18:46: mouth 2 Medic al tablet 23 (two) Center times daily . atorvastati Yes 10mg QD Take [address] [facility] n (LIPITOR) 5-18 by mouth Luke s 10 MG 18:46: daily. Medical tablet 23 [place] levothyroxi Yes 150ug Take [address] ne 5-18 mcg by Lukes (SYNTHROID, 18:46: mouth Medic al LEVOTHROID) 23 Every Center 150 MCG morning on tablet an empty stomach. potassium Yes 10meq QD Take [address] [facility] chloride 5-18 mEq by Lukes (KLOR-CON) 18:46: mouth Medica l 10 MEQ CR 23 every Center tablet morning. venlafaxine Yes 150mg QD Take [address] (EFFEXOR-XR 5-18 mg by Lukes ) 150 MG 24 18:46: mouth Medic al hr capsule 23 daily. [place] meloxicam Yes 15mg QD Take [address] (MOBIC) 7.5 5-18 by mouth Luke s MG tablet 18:46: daily . Medic al 23 [place] ferrous Yes 324mg Take 324 [facility] gluconate 5-18 mg by [facility]ukes (FERGON) 18:46: mouth Medical 324 MG 23 daily with [place] tablet breakfast. cholecalcif Yes 1000U QD Take 1,[address] kyle, 5-18 Units by [facility] vitamin D3, 18:46: mouth Medic al 2,000 unit 23 daily. [place] Tab ondansetron Yes Take by [facility] (ZOFRAN) 8 5-18 mouth. Lukes MG tablet 18:46: Medical 23 [place] ciprofloxac Yes 500mg Take [address] in HCl 5-18 mg by [facility]ukes (CIPRO) 500 18:46: mouth. Medi macario MG tablet 23 [place] empaglifloz Yes 10mg QD Take [address] in 5-18 by mouth Lukes (JARDIANCE) 18:46: daily. Medi macario 10 mg 23 [place] tablet traZODone Yes 50mg QD Take [address] (DESYREL) 5-18 by mouth Lukes 50 MG 18:46: nightly. Medical tablet 23 [place] montelukast 0 Yes 10mg QD Take [address] (SINGULAIR) 5-18 by mouth Luke s 10 mg 18:46: every Medical tablet 23 morning. [place] glimepiride 0 Yes 1mg QD Take [address] (AMARYL) 1 5-18 by mouth Lukes MG tablet 18:46: every Medical 23 evening. [place] furosemide 0 Yes 20mg QD Take [address] (LASIX) 40 5-18 by mouth Lukes MG tablet 18:46: every Medical 23 morning . [place] amitriptyli 0 Yes 25mg QD Take [address] [facility] ne (ELAVIL) 5-18 by mouth Luke s 25 MG 18:46: nightly. Medical tablet 23 [place] carvedilol Yes 6.25mg Q.5D Take 6.[address] (COREG) 5-18 mg by Lukes 6.25 MG 18:46: mouth 2 Medical tablet 23 (two) Center times daily. divalproex Yes 1000mg Q.5D Take 1,[address] (DEPAKOTE) 5-18 mg by Lukes 500 MG EC 18:46: mouth 2 Medic al tablet 23 (two) Center times daily . atorvastati Yes 10mg QD Take [address] [facility] n (LIPITOR) 5-18 by mouth Luke s 10 MG 18:46: daily. Medical tablet 23 [place] levothyroxi 0 Yes 150ug Take [address] ne 5-18 mcg by [facility] (SYNTHROID, 18:46: mouth Medic al LEVOTHROID) 23 Every Center 150 MCG morning on tablet an empty stomach. potassium Yes 10meq QD Take [address] [facility] chloride 5-18 mEq by [facility] (KLOR-CON) 18:46: mouth Medica l 10 MEQ CR 23 every Center tablet morning. venlafaxine 0 Yes 150mg QD Take [address] (EFFEXOR-XR 5-18 mg by [facility] ) 150 MG 24 18:46: mouth Medic al hr capsule 23 daily. [place] meloxicam 0 Yes 15mg QD Take [address] (MOBIC) 7.5 5-18 by mouth Luke s MG tablet 18:46: daily . Medic al 23 [place] ferrous 0 Yes 324mg Take 324 [facility] t gluconate 5-18 mg by [facility]ukes (FERGON) 18:46: mouth Medical 324 MG 23 daily with Center tablet breakfast. cholecalcif 0 Yes 1000U QD Take 1,[address] kyle, 5-18 Units by [facility] vitamin D3, 18:46: mouth Medic al 2,000 unit 23 daily. Center Tab ondansetron Yes Take by [facility] (ZOFRAN) 8 5-18 mouth. Lukes MG tablet 18:46: Medical 23 [place] ciprofloxac Yes 500mg Take [address] in HCl 5-18 mg by Lukes (CIPRO) 500 18:46: mouth. Medi macario MG tablet 23 [place] empaglifloz Yes 10mg QD Take [address] in 5-18 by mouth Lukes (JARDIANCE) 18:46: daily. Medi macario 10 mg 23 [place] tablet Bactrim Bactrim 2017- No Ailyn 1 tablet [place] 11-14 [facility] for ENT 00:00: 00:00 00 :00 Bactroban Bactroban 2017- No Ailyn 1 [place] 11-08 [facility] applicatio for EN T 00:00: 00:00 n [...] l times a day with meals. potassium 2016- Yes 10meq QD Take 10 Meth ronit chloride 8-[address] (K-DUR,KLOR 16:01: mouth Hospi ta -CON) 10 07 daily. l MEQ CR tablet VENLAFAXINE 0 Yes 150mg QD Take 150 M ethodi HCL 8-[address] (VENLAFAXIN 16:01: mouth Hospi ta E ORAL) 07 daily. l MULTIVITAMI 2015-0 Yes 1{tbl} QD Take 1 Me thodi N ORAL 8-[address] 16:01: mouth Hospita 07 daily. l PHENTERMINE 2015- Yes Take by Met hodi HCL 8-[address] (PHENTERMIN 16:01: Hospit a E ORAL) 07 l traMADol 2015- Yes 50mg Q6H Take 50 mg Met hodi (ULTRAM) 50 8-[address] mg tablet 16:01: every 6 Hospi ta 07 (six) l hours as needed for moderate pain. traMADol Yes 50mg Q6H Take 50 mg Met hodi (ULTRAM) 50 8-[address] mg tablet 11:01: every 6 Hospi ta 07 (six) l hours as needed for moderate pain. atorvastati Yes 10mg QD Take 10 mg Methodi n (LIPITOR) 8-[address] 10 MG 11:01: every Hospita tablet 07 evening. l carvedilol Yes 6.25mg Q.5D Take 6.25 Methodi (COREG) 8-[address] 6.25 MG 11:01: mouth 2 Hospita tablet 07 (two) l times a day with meals. furosemide Yes 80mg QD Take 80 mg M ethodi (LASIX) 80 8-[address] MG tablet 11:01: daily. Hospit a 07 l chlorproMAZ 2015-0 Yes 25mg QD Take 25 mg Methodi INE 8-[address] (THORAZINE) 11:01: nightly. Ho spita 25 MG 07 l tablet divalproex Yes 1000mg QD Take 1,000 Methodi (DEPAKOTE) 8-[address] 500 MG EC 11:01: mouth Hospita tablet 07 nightly. l levothyroxi Yes 200ug QD Take 200 M ethodi ne 8-[address] (SYNTHROID, 11:01: mouth Hospi ta LEVOTHROID) 07 every l 200 MCG morning. tablet metFORMIN Yes 500mg Q.5D Take 500 Met hodi (GLUCOPHAGE 8-[address] ) 500 MG 11:01: mouth 2 Hospit a tablet 07 (two) l times a day with meals. potassium Yes 10meq QD Take 10 Meth ronit chloride 8-[address] (K-DUR,KLOR 11:01: mouth Hospi ta -CON) 10 07 daily. l MEQ CR tablet VENLAFAXINE Yes 150mg QD Take 150 M ethodi HCL 8-[address] (VENLAFAXIN 11:01: mouth Hospi ta E ORAL) 07 daily. l MULTIVITAMI Yes 1{tbl} QD Take 1 Me thodi N ORAL 8-[address] 11:01: mouth Hospita 07 daily. l PHENTERMINE Yes Take by Met hodi HCL 8-[address] (PHENTERMIN 11:01: Hospit a E ORAL) 07 l Medrol Medrol Yes Ailyn as Center (Ranjeet) (Ranjeet) 1-11 Shani directed for ENT 00:00: 00 Ferrous Ferrous Yes Ailyn not Center Gluconate Gluconate Shani defined for ENT Pravastatin Pravastatin Yes Ailyn 1 tablet Center Sodium Sodium Shani for ENT ProAir HFA ProAir HFA Yes Ailyn 2 puffs as Center Shani needed for ENT Depakote ER Depakote ER Yes Ailyn not Center Shani defined for ENT Mupirocin Mupirocin Yes Ailyn 1 Ce nter Shani applicatio for ENT n to affected area Hydrochloro Hydrochloro Yes Ailyn 1 tablet Center thiazide thiazide Shani for E NT Levothyroxi Levothyroxi Yes Ailyn 1 tablet Center ne Sodium ne Sodium Shani for ENT Trazodone Trazodone Yes Ailyn 1 tablet Center HCl HCl Shani at bedtime for ENT Augmentin Augmentin Yes Ailyn not Ce nter Shani defined for ENT Metformin Metformin Yes Ailyn 1 tablet Center HCl HCl Shani with meals for ENT Immunizations Ordered Filled Immunization Date Status Comments Sourc e Immunization Name Name SARS-COV-2 COVID-19 2022-01-17 Completed Unive rsity of PFIZER VACCINE 00:00:00 [facility] SARS-COV-2 COVID-19 2022-01-17 Completed Unive rsity of PFIZER VACCINE 00:00:00 [facility] SARS-COV-2 COVID-19 2021-11-10 Completed Unive rsity of MODERNA VACCINE 00:00:00 [facility] SARS-COV-2 COVID-19 2021-11-10 Completed Unive rsity of MODERNA VACCINE 00:00:00 [facility] Influenza Virus 2021-09-22 Completed Universit y of Vaccine,quad 00:00:00 [place] [facility] 65+ Influenza Virus 2021-09-22 Completed Universit y of Vaccine,quad 00:00:00 [place] [facility] Free Branch 65+ SARS-COV-2 COVID-19 2021-03-13 Completed Unive rsity of MODERNA VACCINE 00:00:00 [facility] SARS-COV-2 COVID-19 2021-03-13 Completed Unive rsity of MODERNA VACCINE 00:00:00 [facility] SARS-COV-2 COVID-19 2021-02-13 Completed Unive rsity of MODERNA VACCINE 00:00:00 [facility] SARS-COV-2 COVID-19 2021-02-13 Completed Unive rsity of MODERNA VACCINE 00:00:00 [facility] Vital Signs Vital Name Observation Time Observation Value Comments Source Systolic blood 2022-04-23 16:21:00 110 mm[Hg] Univer sity of [facility] Diastolic blood 2022-04-23 16:21:00 69 mm[Hg] Unive rsity of [facility] Heart rate 2022-04-23 16:21:00 72 /min [facility] Body height 2022-04-23 16:21:00 162.6 cm [facility] Body weight 2022-04-23 16:21:00 108.863 kg [facility] BMI 2022-04-23 16:21:00 41.20 kg/m2 [facility] Oxygen saturation 2022-04-23 16:21:00 93 /min Uni [facility] in Arterial blood Medical Br anch by Pulse oximetry Procedures Procedure Date / Time Performed Performing Clinician [facility] e MEDICAL 2022-04-23 05:01:00 Doctor Unassigned, No Corieer kalpana [facility] RELEASE/CLEARANCE Name Medical Branch FORMS Plan of Care Planned Activity Planned Date Details Comments Source Future Scheduled 2022-06-15 HEPATITIS B VACCINES Met [facility] Test 23:45:44 (1 of 3 - 3-dose series) [code = HEPATITIS B VACCINES (1 of 3 - 3-dose series)] Future Scheduled 2022-06-15 COVID-19 VACCINE (#1) [facility] Test 23:45:44 [code = COVID-19 VACCINE (#1)] Future Scheduled 2022-06-15 Hepatitis C screening [facility] Test 23:45:44 (procedure) [code = 697547105] Future Scheduled 2022-06-15 BREAST CANCER [facility] Test 23:45:44 SCREENING [code = BREAST CANCER SCREENING] Future Scheduled 2022-06-15 COLONOSCOPY SCREENING [facility] Test 23:45:44 [code = COLONOSCOPY SCREENING] Future Scheduled 2022-06-15 SHINGLES VACCINES (1 Met [facility] Test 23:45:44 of 2) [code = SHINGLES VACCINES (1 of 2)] Future Scheduled 2022-06-15 65+ [facility]OCOCCAL [facility] Test 23:45:44 VACCINE (1 - PCV) [code = 65+ PNEUMOCOCCAL VACCINE (1 - PCV)] Future Scheduled 2022-06-15 INFLUENZA VACCINE [facility] Test 23:45:44 [code = INFLUENZA VACCINE] Future Scheduled 2021-06-[address] [facility] Test 00:00:00 (Season Ended) [code = Medic al Center INFLUENZA VACCINE (Season Ended)] Future Scheduled 2020-10-[address] [facility] Test 00:00:00 (12+) [code = Medical Center DEPRESSION SCREENING (12+)] Future Scheduled 2019-12-[address] [facility] Test 00:00:00 malignant neoplasm of Medica Center breast (procedure) [code = 153227010] Future Scheduled 2019 PNEUMOCOCCAL 65+ Y[facility] Test 00:00:00 (1 of 1 - Medical Center [id number]) [code = PNEUMOCOCCAL 65+ YRS (1 of 1 - [id number] PCV13)] Future Scheduled 2019-08-[address] [facility] [address] [facility] Test 00:00:00 measurement Medical Center (procedure) [code = 84664639] Future Scheduled 2004 SHINGLES VACCINES ([address] [facility] Test 00:00:00 of 2) [code = SHINGLES Medic al Center VACCINES (1 of 2)] Future Scheduled 1973 DTAP/TDAP/TD VACCINES [facility] Test 00:00:00 (1 - Tdap) [code = Medical C enter DTAP/TDAP/TD VACCINES (1 - Tdap)] Future Scheduled 1972 HEPATITIS C SCREENING [facility] Test 00:00:00 [code = HEPATITIS C Medical Center SCREENING] Future Scheduled 1966 COVID-19 VACCINE (1) [facility] Test 00:00:00 [code = COVID-[address] VACCINE (1)] Future Scheduled 1964 DIABETIC EYE EXAM [facility] Test 00:00:00 [code = DIABETIC EYE Medical Center EXAM] Future Scheduled [address] [facility] Test 00:00:00 examination Medical Center (regime/therapy) [code = 696250560] Future Scheduled 1964 Urine screening for [facility] Test 00:00:00 protein (procedure) Medical Center [code = 682270482] Future Scheduled [address] [facility] Test 00:00:00 [facility] (procedure) [code = 295549270] Future Scheduled 65+ [facility]OCOCCAL [facility] [...] [facility] Test (procedure) [code = 554326889] Future Scheduled BREAST CANCER [facility] Test SCREENING [code = BREAST CANCER [...] Facility Department ID 2020-04-14 Inpatient [facility] BALANCE PT [id number] 96 [place] 15:08:00 [facility] 2022-07-02 2022-07-02 Outpatient Roxana [facility] [id number] Q-20 Univers 11:00:00 11:00:00 MARY [id number] [facility] 2022-07-02 2022-07-02 Outpatient Roxana [facility] [id number] Univers 11:00:00 11:00:00 MARY [facility] 2022-05-28 2022-05-28 Outpatient Roxana [facility] [id number] Q-20 Univers 11:30:00 11:30:00 MARY [id number] [facility] 2022-05-20 2022-05-20 Outpatient Roxana [facility] [id number] Q-20 Univers 16:00:00 16:00:00 MARY [id number] [facility] 2022-04-23 2022-04-23 Office Gabriel [facility] [id number] Univers 11:00:00 13:44:24 Visit Red Social[employer]305 [id number] i ty of CLEAR 4.2.7.2.686 [facility] [phone] [place] [address] [address] OFFICE BUILDING 2022-04-23 2022-04-23 Outpatient RED KEANE [facility] [id number] Univers 11:00:00 13:44:24 RED RIOS [facility] 2022-04-23 2022-04-23 Orders Doctor CERNA [id number] Univers 00:00:00 00:00:00 Only Unassigned, DAMEON 350.1.13.10 ity of [place] [facility] 4.2.7.2.686 Jimbo as [phone] [address] 2021-07-17 2021-07-17 Outpatient R [facility] [id number] Univers 11:15:00 11:15:00 [id number] [facility] 2021-07-04 2021-07-04 Outpatient R JOEUC [facility] [id number] Univers 19:45:00 19:45:00 CHRISTIAN [facility] 2018-02-07 2018-02-07 [facility]patient [facility] [id number] [place] 15:56:00 15:56:00 [facility] 2018-02-07 2018-02-07 [facility]patient [facility] [id number] [place] 15:16:00 15:16:00 [facility] 2017-11-28 2017-11-28 Outpatient [facility] [id number] [place] 09:30:00 09:30:00 [facility] 2017-11-18 2017-11-18 Outpatient [facility] [id number] [place] 10:50:00 10:50:00 [facility] 2017-11-15 2017-11-15 Outpatient [facility] [id number] [place] 09:26:00 09:26:00 [facility] Results Test Description Test Time Test Comments Results Result Comments Source BLOOD CULTURE 2019-03-04 20:01:00 Test Item Value Reference Range Interpretation Comme nts CULTURE ([facility]) (test code = 1095) No growth in 5 days BLOOD [id number] 20:01:00 Test Item Value Reference Range Interpretation Comments CULTURE ([facility]) (test No growth in 5 days code = 1095) POCT-GLUCOSE [id number] 11:57:00 Test Item Value Reference Range Interpretation Comments POC-GLUCOSE METER 117 mg/dL 70-110 H TESTED AT [facility] ([facility]) (test code = MORENITA Schmidt [facility] 1538) [address] POCT-GLUCOSE [id number] 07:57:00 Test Item Value Reference Range Interpretation Comments POC-GLUCOSE METER 110 mg/dL 70-110 TESTED AT [facility] 6720 ([facility]) (test code = MORENITA SPANN [place] 1538) [address] POCT-GLUCOSE [id number] 21:11:00 Test Item Value Reference Range Interpretation Comments POC-GLUCOSE METER 100 mg/dL 70-110 TESTED AT [facility] 6720 ([facility] (test code = MORENITA SPANN [place] 1538) [address] MR, SPINE, LUMBAR, WITHOUT [id number] 20:59:00FINAL REPORT MR, SPINE, LUMBAR, WITHOUT CONTRAST INDICATION: Low back pain, cauda equina syndrome suspected COMPARISON: None TECHNIQUE: Multiplanar, multisequence MR images of the lumbar spine without contrast. FINDINGS: Numbering: Last fully formed disc space is designated L5-S1.Spinal cord: The conus medullaris is normal is size, signal intensity, and position, terminating at the L1 level. Osseous structures: The lumbar spine demonstrates normal alignment without scoliosis orlisthesis. Marrow signal intensity is somewhat variant with [...] canal narrowing. Mild bilateral foraminal stenosis. L3/L4: Broaddisc bulge with mild canal narrowing. Mild bilateral foraminal stenosis. L4/L5: Broad disc bulge andfacet arthropathy create moderate canal narrowing. Moderate bilateral foraminal stenosis. L5/S1: Advanced degenerative endplate changes with mild canal narrowing. Moderate to severe bilateral foraminal stenosis. Paraspinal soft tissues: Paraspinal soft tissues and visible retroperitoneal structures are unremarkable. Superficial midline edema is noted dorsally. IMPRESSION: Multilevel degenerative changes of the lumbar spine, most prominent at L2-3 with central disc protrusion creating mild narrowing.There is moderate to severe bilateral foraminal stenosis at L5-S1 as a result of degenerative facet and endplate changes. Signed: JR Henry Robert [facility] Verified Date/Time: 03/02/2019 20:59:13 Reading Location: [facility] Radiology Reading Room POCT-GLUCOSE [id number] 18:37:00 Test Item Value Reference Range Interpretation Comments POC-GLUCOSE METER 130 mg/dL 70-110 H TESTED AT [place] [address] ([facility]) (test code = MORENITA Schmidt [facility] 1538) [address] POCT-GLUCOSE [id number] 12:03:00 Test Item Value Reference Range Interpretation Comments POC-GLUCOSE METER 105 mg/dL 70-110 TESTED AT [place] [address] ([facility]) (test code = MORENITA Schmidt [facility] 1538) 18581 POCT-GLUCOSE [id number] 06:55:00 Test Item Value Reference Range Interpretation Comments POC-GLUCOSE METER 126 mg/dL 70-110 H TESTED AT [place] [address] ([facility]) (test code = MORENITA Schmidt [facility] 1538) [address]287 POCT-GLUCOSE [id number] 20:31:00 Test Item Value Reference Range Interpretation Comments POC-GLUCOSE METER 98 mg/dL 70-110 TESTED AT [place] [address] ([facility]) (test code = MORENITA Schmidt [facility] [address] 1538) CT, SPINE, LUMBAR, WO [id number] 19:49:00FINAL REPORT CT, SPINE, LUMBAR, WO CONTRAST INDICATION: bowel and bladder incont inent COMPARISON: None TECHNIQUE: Contiguous noncontrast axial images of the lumbar spine are obtained. Computer reformatted coronal and sagittal images are also provided. Axial images are available inth bone and soft tissue algorithm. DOSE REDUCTION: [...] MDReport Verified Date/Time: 03/01/2019 19:49:57 Reading Location: [address] Neuro Reading Room POCT- GLUCOSE [id number] 16:35:00 Test Item Value Reference Range Interpretation Comments POC-GLUCOSE METER 172 mg/dL 70-110 H TESTED AT [place] [address] ([facility]) (test [facility] = [facility] 1538) [address] POCT-GLUCOSE [id number] 11:56:00 Test Item Value Reference Range Interpretation Comments POC-GLUCOSE METER 202 mg/dL 70-110 H TESTED AT [place] [address] ([facility]) (test code = [facility] Roxana [facility] 1538) [address] POCT-GLUCOSE [id number] 07:34:00 Test Item Value Reference Range Interpretation Comments POC-GLUCOSE METER 135 mg/dL 70-110 H TESTED AT [place] [address] ([facility]) (test code = [facility] Roxana [facility] 1538) [address] CALCIUM, [id number] 06:34:00 Test Item Value Reference Range Interpretation Comments CALCIUM IONIZED (BEAKER) (test 1.06 mmol/L 1.12-1.27 L code = 698) [facility]LOOD [facility] (test code = 7.37 1810) [id number] 05:46:00 Test Item Value Reference Range Interpretation Comments MAGNESIUM (BEAKER) (test code = 2.1 mg/dL 1.6-2.6 627) BASIC METABOLIC [id number] 05:46:00 Test Item Value Reference Range Interpretation [...] PATIEN TS. CBC W/PLT COUNT & AUTO [id number] 05:29:00 Test Item Value Reference Range Interpretation [...] (BEAKER) (test code = 2801) LACTIC ACID, [id number] 05:29:00 Test Item Value Reference Range Interpretation Comments LACTATE BLOOD VENOUS (2) (BEAKER) 1.1 mmol/L 0.5-2.2 (test code = 2872) POCT-GLUCOSE [id number] 20:48:00 Test Item Value Reference Range Interpretation Comments POC-GLUCOSE METER 109 mg/dL 70-110 TESTED AT [place] [address] ([facility]) (test code = MORENITA Schmidt [facility] 1538) [address] POCT-GLUCOSE [id number] 16:53:00 Test Item Value Reference Range Interpretation Comments POC-GLUCOSE METER 117 mg/dL 70-110 H TESTED AT [place] [address] ([facility]) (test code = MORENITA Schmidt [facility] 1538) [address] POCT-GLUCOSE [id number] 11:55:00 Test Item Value Reference Range Interpretation Comments POC-GLUCOSE METER 173 mg/dL 70-110 H TESTED AT [place] [address] [facility] (test code = MORENITA Schmidt [facility] 1538) [address] POCT-GLUCOSE [id number] 08:46:00 Test Item Value Reference Range Interpretation Comments POC-GLUCOSE METER 120 mg/dL 70-110 H TESTED AT [facility] 6720 (BEAKER) (test code = MORENITA [place] 1535) [address] HEMOGLOBIN [id number] 07:05:00 Test Item Value Reference Range Interpretation Comments HEMOGLOBIN A1C (BEAKER) (test code = 6.9 % 4.3-6.1 H 368) T4, [id number] 06:32:00 Test Item Value Reference Range Interpretation Comments FREE T4 (BEAKER) (test code = 655) 1.00 ng/dL 0.70-1.48 TSH/FREE T4 IF [id number] 05:26:00 Test Item Value Reference Range Interpretation Comments THYROID STIMULATING HORMONE 5.10 uIU/mL 0.35-4.94 H (BEAKER) (test code = 772) VITAMIN B12 AND [id number] 05:20:00 Test Item Value Reference Range Interpretation Comments VITAMIN B12 (BEAKER) (test code = 1226 pg/mL 213-816 H 774) FOLATE (BEAKER) (test code = 362) 14.8 ng/mL >=7.0 BASIC METABOLIC [id number] 05:17:00 Test Item Value Reference Range Interpretation [...] NOT APPLICABLE FOR DIALYSIS PATIEN TS. CALCIUM, [id number] 05:14:00 Test Item Value Reference Range Interpretation Comments CALCIUM IONIZED (BEAKER) (test 0.93 mmol/L 1.12-1.27 L code = 698) PH, BLOOD (BEAKER) (test code = 7.49 1810) [id number] 04:59:00 Test Item Value Reference Range Interpretation Comments PHOSPHORUS (BEAKER) (test code = 4.2 mg/dL 2.3-4.7 604) [id number] 04:59:00 Test Item Value Reference Range Interpretation Comments MAGNESIUM (BEAKER) (test code = 2.0 mg/dL 1.6-2.6 627) LACTIC ACID, [id number] 04:55:00 Test Item Value Reference Range Interpretation Comments LACTATE BLOOD VENOUS (2) (BEAKER) 1.8 mmol/L 0.5-2.2 (test code = 2872) CBC W/PLT COUNT & AUTO [id number] 04:35:00 Test Item Value Reference Range Interpretation [...] PERCENT (BEAKER) (test code = 2801) POCT-GLUCOSE [id number] 21:40:00 Test Item Value Reference Range Interpretation Comments POC-GLUCOSE METER 133 mg/dL 70-110 H TESTED AT [facility] 6720 (BEAKER) (test code = [facility] 1538) [address] LACTIC ACID, [id number] 19:18:00 Test Item Value Reference Range Interpretation Comments LACTATE BLOOD VENOUS (2) (BEAKER) 3.6 mmol/L 0.5-2.2 H (test code = 2872) POCT-GLUCOSE [id number] 18:17:00 Test Item Value Reference Range Interpretation Comments POC-GLUCOSE METER 95 mg/dL 70-110 TESTED AT [facility] 6720 (BEAKER) (test code = [facility] [address] 1538) LACTIC ACID, [id number] 15:26:00 Test Item Value Reference Range Interpretation Comments LACTATE BLOOD VENOUS 1.7 mmol/L 0.5-2.2 Specime n slightly (2) (BEAKER) (test hemolyzed code = 2872) [id number] 14:38:00 Test Item Value Reference Range Interpretation Comments PROCALCITONIN (BEAKER) (test code 0.05 ng/mL <0.05 H = 3036) SEPSIS RISK (ng/mL)Low: 0.05-0.50Intermediate: 0.51-2.00High: >=2.01U/S, [id number] 14:19:00Reason for exam:->CYSTITISFINAL REPORT INDICATION:Urinary tract infection (cystitis). COMPARISON: None. TE CHNIQUE: Renal ultrasound exam limited.Pelvic ultrasound exam. FINDINGS / IMPRESSION:Right kidney measures 13.1 x 5.8 x 5.6 cm.Left kidney measures 13.7 x 6.2 x 6.0 cm.Cortical thickness appears normalin both kidneys.No hydronephrosis, renal mass, or renal stone demonstrated.Arterial and venous flow demonstrated in both renal aakash.Bladder not visualized.Patient is status post hysterectomy. Signed: Ra Smallwood Verified Date/Time: 02/27/2019 14:19:25 Reading Location: [address] Ultrasound Reading Room U/S, RENAL, LIMITED 2019-02-27 14:19:00Reason for exam:->CYSTITISFINAL REPORT INDICATION:Urinary tract infection (cystitis). COMPARISON: None. TE CHNIQUE: Renal ultrasound exam limited.Pelvic ultrasound exam. FINDINGS / IMPRESSION:Right kidney measures 13.1 x 5.8 x 5.6 cm.Left kidney measures 13.7 x 6.2 x 6.0 cm.Cortical thickness appears normalin both kidneys.No hydronephrosis, renal mass, or renal stone demonstrated.Arterial and venous flow demonstrated in both renal aakash.Bladder not visualized.Patient is status post hysterectomy. Signed: Ra Smallwood Verified Date/Time: 02/27/2019 14:19:25 Reading Location: [address] Ultrasound Reading Room URINALYSIS W/ REFLEX URINE [id number] 12:20:00 Test Item Value Reference Range Interpretation [...] SOURCE(BEAKER) (test code = 2795) HEPATIC FUNCTION [id number] 12:11:00 Test Item Value Reference Range Interpretation [...] = 15 U/L 6-55 347) BASIC METABOLIC [id number] 12:11:00 Test Item Value Reference Range Interpretation [...] APPLICABLE FOR DIALYSIS PATIEN TS. LACTIC ACID, [id number] 12:09:00 Test Item Value Reference Range Interpretation Comments LACTATE BLOOD VENOUS 2.3 mmol/L 0.5-2.2 H Specime n slightly (2) (BEAKER) (test hemolyzed code = 2182) KETONE, [id number] 11:53:00 Test Item Value Reference Range Interpretation Comments KETONES, BLOOD (BEAKER) (test code 0.1 mmol/L <0.4 = 1103) CBC W/PLT COUNT & AUTO [id number] 11:53:00 Test Item Value Reference Range Interpretation [...] code = 2801) WOUND CULTURE + GRAM [id number] 18:38:00 Test Item Value Reference Range Interpretation Comments CULTURE (BEAKER) (test code 1+ Skin batsheva = 1095) GRAM STAIN RESULT (BEAKER) No WBCs (test code = 1123) GRAM STAIN RESULT (BEAKER) No organisms seen (test code = 98091) AFB CULTURE + [id number] 14:57:00 Test Item Value Reference Range Interpretation Comments CULTURE (BEAKER) (test No acid-fast bacilli code = 1095) isolated in 42 days AFB SMEAR (BEAKER) No acid fast bacilli (test code = 994) seen SURGICALLY OBTAINED CULTURE + GRAM [id number] 10:13:00 Test Item Value Reference Range Interpretation Comments CULTURE (BEAKER) (test No growth code = 1095) GRAM STAIN RESULT <1+ White blood cells (BEAKER) (test code = seen 1123) GRAM STAIN RESULT No organisms seen (BEAKER) (test code = 15386) MM, U/S, BREAST, UNILATERAL, [id number] 16:18:00Reason for Exam:->[id number] #[id number] - MM, U/S, BREAST, UNILATERAL, LEFTULTRASOUND OF [...] of malignancy. Macie Diop M.D. pth/:12/08/2017 16:18:20 Grinder Set Up Operator Surface: Phuong Pugh Brakes Inspector, [facility] Ultrasound BI-RADS: 2 Benign 35139 MM, DIGITAL MAMMO, DIAGNOSTIC, BILATERAL INCLUDING [id number] 16:16:00Reason for Exam:->Encounter for screening mammogram for malugnant neoplasm of breastMRN#: [id number] - MM, DIGITAL MAMMO, DIAGNOSTIC, BILATERAL INCLUDING CADBILATERAL DIGITAL DEWEY GNOSTIC MAMMOGRAM WITH CAD: 12/08/2017No prior exams were available for comparison. The tissue of both breasts is predominantly fatty. Current study was also evaluated with a Computer Aided Detection (CAD) system. Benign appearing calcifications are present in both breasts. No significant masses, calcif ications, or other findings are seen in either breast. IMPRESSION: BENIGNThere is no mammographic abnormality seen in the left breast to correspond with the reported palpable abnormality; however, further workup with ultrasound is recommended. Macie Diop M.D. pth/:12/08/2017 16:16:27 Grinder Set Up Operator Surface: Ashely Chou RT(R)(M), [facility] Mammogram BI-RADS: 2 Benign [id number] BLOOD [id number] 05:01:00 Test Item Value Reference Range Interpretation Comments CULTURE (BEAKER) (test No growth in 5 days code = 1095) BLOOD [id number] 23:00:00 Test Item Value Reference Range Interpretation Comments CULTURE (BEAKER) (test No growth in 5 days code = 1095) POCT-GLUCOSE [id number] 07:45:00 Test Item Value Reference Range Interpretation Comments POC-GLUCOSE METER 125 mg/dL 70-110 H TESTED AT [facility] 6720 (BEAKER) (test code = MORENITA [place] 1538) [address] CALCIUM, [id number] 06:18:00 Test Item Value Reference Range Interpretation Comments CALCIUM IONIZED (BEAKER) (test 1.10 mmol/L 1.12-1.27 L code = 698) PH, BLOOD (BEAKER) (test code = 7.36 1810) [id number] 06:10:00 Test Item Value Reference Range Interpretation Comments PHOSPHORUS (BEAKER) (test code = 4.3 mg/dL 2.3-4.7 604) [id number] 06:10:00 Test Item Value Reference Range Interpretation Comments MAGNESIUM (BEAKER) (test code = 1.7 mg/dL 1.6-2.6 627) BASIC METABOLIC [id number] 06:10:00 Test Item Value Reference Range Interpretation [...] PATIEN TS. CBC W/PLT COUNT & AUTO [id number] 05:28:00 Test Item Value Reference Range Interpretation [...] LYMPHOCYTES ABSOLUTE COUNT 2.78 K/ L 1.18-3.74 ([facility]) (test code = 414) MONOCYTES ABSOLUTE COUNT ([facility]) 0.62 K/ L 0.24-0.36 H (test code = 415) EOSINOPHILS ABSOLUTE COUNT 0.14 K/ L 0.04-0.36 ([facility]) (test code = 416) BASOPHILS ABSOLUTE COUNT ([facility]) 0.03 K/ L 0.01-0.08 (test code = 417) IMMATURE GRANULOCYTES-RELATIVE 0 % 0-1 PERCENT ([facility]) (test code = 2801) POCT-GLUCOSE [id number] 21:40:00 Test Item Value Reference Range Interpretation Comments POC-GLUCOSE METER 138 mg/dL 70-110 H TESTED AT [place] [address] ([facility]) (test code = [facility] 1538) [address] POCT-GLUCOSE [id number] 18:56:00 Test Item Value Reference Range Interpretation Comments POC-GLUCOSE METER 98 mg/dL 70-110 TESTED AT [place] [address] ([facility]) (test code = [facility] [address] 1538) POCT-GLUCOSE [id number] 14:49:00 Test Item Value Reference Range Interpretation Comments POC-GLUCOSE METER 92 mg/dL 70-110 TESTED AT [place] [address] ([facility]) (test code = [facility] [address] 1538) VANCOMYCIN LEVEL, [id number] 11:12:00 Test Item Value Reference Range Interpretation Comments VANCOMYCIN TROUGH ([facility]) (test 16.1 ug/mL 10.0-20.0 code = 522) POCT-GLUCOSE [id number] 09:35:00 Test Item Value Reference Range Interpretation Comments POC-GLUCOSE METER 123 mg/dL 70-110 H TESTED AT [place] [address] ([facility]) (test code = [facility] 1538) [address] CBC W/PLT COUNT & AUTO [id number] 09:02:00 Test Item Value Reference Range Interpretation Comments WHITE BLOOD CELL COUNT ([facility]) 6.2 K/ L 3.5-10.5 (test code = 775) RED BLOOD CELL COUNT ([facility]) 3.72 M/ L 3.93-5.22 L (test code [...] (BEAKER) (test code = 2801) VITAMIN D, [id number] 07:00:00 Test Item Value Reference Range Interpretation Comments VITAMIN D 25-OH (BEAKER) (test 22.5 ng/mL 6.6-49.9 code = 2764) Effective 07/27/2017: Reference Range ChangeNew: 6.6-49.9 ng/mL Previous: 13.0- 47.8 ng/mLRecommendedVitamin D Target Range: 30.0-40.0 ng/[id number] 06:39:00 Test Item Value Reference Range Interpretation Comments PHOSPHORUS (BEAKER) (test code = 4.6 mg/dL 2.3-4.7 604) [id number] 06:39:00 Test Item Value Reference Range Interpretation Comments MAGNESIUM (BEAKER) (test code = 1.7 mg/dL 1.6-2.6 627) BASIC METABOLIC [id number] 06:39:00 Test Item Value Reference Range Interpretation [...] NOT APPLICABLE FOR DIALYSIS PATIEN TS. CALCIUM, [id number] 06:30:00 Test Item Value Reference Range Interpretation Comments CALCIUM IONIZED (BEAKER) (test 0.87 mmol/L 1.12-1.27 L code = 698) PH, BLOOD (BEAKER) (test code = 7.37 1810) POCT-GLUCOSE [id number] 20:32:00 Test Item Value Reference Range Interpretation Comments POC-GLUCOSE METER 173 mg/dL 70-110 H TESTED AT [place] [address] ([facility]) (test code = MORENITA Schmidt [facility] 1538) [address] POCT-GLUCOSE [id number] 18:41:00 Test Item Value Reference Range Interpretation Comments POC-GLUCOSE METER 121 mg/dL 70-110 H TESTED AT [place] [address] ([facility]) (test code = MORENITA Schmidt [facility] 1538) [address] HEMOGLOBIN [id number] 14:36:00 Test Item Value Reference Range Interpretation Comments HEMOGLOBIN A1C ([facility]) (test code = 6.6 % 4.3-6.1 H 368) POCT-GLUCOSE [id number] 12:36:00 Test Item Value Reference Range Interpretation Comments POC-GLUCOSE METER 139 mg/dL 70-110 H TESTED AT [place] [address] ([facility]) (test code = MORENITA Schmidt [facility] 1538) [address] POCT-GLUCOSE [id number] 08:34:00 Test Item Value Reference Range Interpretation Comments POC-GLUCOSE METER 125 mg/dL 70-110 H TESTED AT [place] [address] ([facility]) (test code = MORENITA Schmidt [facility] 1538) [address] CBC W/PLT COUNT & AUTO [id number] 07:16:00 Test Item Value Reference Range Interpretation Comments WHITE BLOOD CELL COUNT ([facility]) 7.6 K/ L 3.5-10.5 (test code = 775) RED BLOOD CELL COUNT ([facility]) 3.58 M/ L 3.93-5.22 L (test code = 761) HEMOGLOBIN (BEAKER) (test code = 11.2 GM/DL 11.2-15.7 410) HEMATOCRIT ([facility]) (test code = 35.6 % 34.1-44.9 411) MEAN CORPUSCULAR VOLUME ([facility]) 99.4 fL 79.4-94.8 H (test code = 753) MEAN CORPUSCULAR HEMOGLOBIN 31.3 pg 25.6-32.2 (BEAKER) (test code = 751) MEAN CORPUSCULAR HEMOGLOBIN CONC 31.5 GM/DL 32.2-35.5 L (AKER) (test code = 752) RED CELL DISTRIBUTION WIDTH 14.5 % 11.7-14.4 H (AKER) (test code = 412) PLATELET COUNT (BEAKER) [...] (test code = 1351) TSH/FREE T4 IF [id number] 06:48:00 Test Item Value Reference Range Interpretation Comments THYROID STIMULATING HORMONE 4.13 uIU/mL 0.35-4.94 (BEAKER) (test code = 772) [id number] 06:25:00 Test Item Value Reference Range Interpretation Comments PHOSPHORUS (BEAKER) (test code = 3.9 mg/dL 2.3-4.7 604) [id number] 06:25:00 Test Item Value Reference Range Interpretation Comments MAGNESIUM (BEAKER) (test code = 1.8 mg/dL 1.6-2.6 627) BASIC METABOLIC [id number] 06:25:00 Test Item Value Reference Range Interpretation [...] NOT APPLICABLE FOR DIALYSIS PATIEN TS. LIPID [id number] 06:25:00 Test Item Value Reference Range Interpretation Comments TRIGLYCERIDES (BEAKER) (test code = 357 mg/dL 540) CHOLESTEROL (BEAKER) (test code = 161 mg/dL 631) HDL CHOLESTEROL (BEAKER) (test code 44 mg/dL = 976) LDL CHOLESTEROL CALCULATED (BEAKER) 46 mg/dL (test code = 633) Triglyceride Reference Range: Low Risk <150 Borderline 150-199 High Risk 200- 499 Very High Risk >=500Cholesterol Reference Range: Low Risk <200 Borderline 200-239 High Risk >240HDL Cholesterol Reference Range: Low Risk >=60 High Risk <40LDL Cholesterol Reference Range: Optimal <100 Near Optimal 100-129 Borderline 130-159 High 160-189 Very High >=190CALCIUM, [id number] 06:02:00 Test Item Value Reference Range Interpretation Comments CALCIUM IONIZED (BEAKER) (test 0.84 mmol/L 1.12-1.27 L code = 698) PH, BLOOD (BEAKER) (test code = 7.40 1810) POCT-GLUCOSE [id number] 23:04:00 Test Item Value Reference Range Interpretation Comments POC-GLUCOSE METER 92 mg/dL 70-110 TESTED AT [facility] (BEAKER) (test code = [place] [address] 1538) BASIC METABOLIC [id number] 16:03:00 Test Item Value Reference Range Interpretation [...] PATIEN TS. CBC W/PLT COUNT & AUTO [id number] 15:58:00 Test Item Value Reference Range Interpretation [...] (test code = 2801) RAD, CHEST, 2 [id number] 15:19:00Reason for exam:->cpShould this be performed at the bedside?->NoFINAL REPORT Chest two views compared to November 14, 2017 Discussion: Lungs clear. Heart size normal. No effusion or pneumothorax. There are right shoulder degenerative changes. Wid ened left AC joint may reflect previous surgery or trauma. Signed: [place] Verified Date/Time: 11/30/2017 15:19:59 Reading Location: [address] Consult Reading Room SINUS CULTURE + GRAM [id number] 08:42:00 Test Item Value Reference Interpretation Comments [...] No organisms (BEAKER) (test code = seen 018330) No Normal respiratory batsheva presentHEPATIC FUNCTION [id number] 14:45:00 Test Item Value Reference Range Interpretation [...] = 9 U/L [id number]) BASIC METABOLIC [id number] 14:45:00 Test Item Value Reference Range Interpretation [...] PATIEN TS. CBC W/PLT COUNT & AUTO [id number] 14:12:00 Test Item Value Reference Range Interpretation [...] (test code = 2801) RAD, CHEST, 2 [id number] 13:06:00Reason for Exam:->[id number] REPORT HISTORY : R05. Comparison: None Comment: Two views of the chest, PA and lateral, were obtained. The cardiac silhouette is within normal limits. There is no pleural effusion, pneumothorax or infiltrate. No lytic or blastic abnormalities. Fixation hardware is seen in the cervical spine. Multilevel degenerative disc changes of the thoracic spine are seen. Impression: Noacute cardiothoracic abnormalities. Signed: Radha [facility] Verified Date/Time: 11/14/2017 13:06:08 Reading Location: [address] Radiology Reading Room CT ABDOMEN AND PELVIS W/WOCLINICAL INDICATION: R50.9 Fever, unspecifiedMODALITY: Fjuul Supria [address] (Iterative dose reduction [...] gastric bypass are evident.The spleen is normal insize and contour. The pancreas demonstrates fatty atrophy. [...] in the right lower quadrant to suggest appendicitis.Omentum and mesentery are unremarkable.Abdominal wall is intact.No ascites visualized.No lytic or blastic osseous lesions are observed.The urinary bladder is unremarkable.The uterus is absent. No suspicious adnexal masses are present. No free fluid is present in the pelvis.No pelvic or inguinal lymphadenopathy is evident.PQRS 436: [id number] (For official use only.)
[2022-07-12 23:47] LABS: Urine Blood Negative (Negative); Urine Glucose 3+ (Negative); Urine Protein Negative (Negative); Urine Specific Gravity <=1.005 (1.005-1.030)
[2022-07-13 00:23] LABS: Urine Bacteria <20 /HPF (<20); Urine RBC <5 /HPF (None Seen)
[2022-07-13 00:45] LABS: Absolute Lymphocytes (CBC) 3.6 K/uL (0.7-4.9); Hematocrit 42.1 % (36.0-45.0); MPV 7.7 fL (7.6-11.3); RBC Red Blood Cell Count 4.17 M/uL (3.86-4.86)
[2022-07-13 00:56] LABS: Albumin 3.3 g/dL (3.4-5.0); Bilirubin Total 0.2 mg/dL (0.2-1.0); Protein, Total 7.8 g/dL (6.4-8.2)
[2022-07-13 01:01] LABS: Magnesium 2.7 mg/dL (1.8-2.4); Potassium 4.2 mmol/L (3.5-5.1)
--- NOTE | 2022-07-13 03:26 | ER ---
Nurse's Notes [facility] Name: Lara Liu Age: 66 yrs Sex: Female : 1955 Arrival Date: 07/12/2022 Time: 21: Bed 2 Private MD: Diagnosis: Diarrhea, unspecified;Otitis media, unspecified, bilateral;Acute pharyngitis, unspecified Presentation: 07/12 21: Chief complaint: Patient states: Fever, chills, body aches, fatigue, N/V/D since last ld1 Tuesday. Coronavirus screen: At this time, the client does not indicate any symptoms associated with coronavirus-19. Ebola Screen: No symptoms or risks identified at this time. Initial Sepsis Screen: Does the patient meet any 2 criteria? No. Patient's initial sepsis screen is negative. Does the patient have a suspected source of infection? No. Patient's initial sepsis screen is negative. Risk Assessment: Do you want to hurt yourself or someone else? Patient reports no desire to harm self or others. Onset of symptoms was July 12, 2022. : Method Of Arrival: Ambulatory ld1 : Acuity: CRIS 3 ld1 Triage Assessment: : General: Appears in no apparent distress. comfortable, Behavior is calm, cooperative, ld1 appropriate for age. Pain: Denies pain. EENT: No signs and/or symptoms were reported regarding the EENT system. Neuro: Level of Consciousness is awake, alert, obeys commands, Oriented to person, place, time, situation. Cardiovascular: Capillary refill < 3 seconds Patient's skin is warm and dry. Respiratory: Airway is patent Respiratory effort is even, unlabored. GI: Abdomen is round non-distended. GI: Reports diarrhea, nausea, vomiting. : No signs and/or symptoms were reported regarding the genitourinary system. Derm: No signs and/or symptoms reported regarding the dermatologic system. Musculoskeletal: No signs and/or symptoms reported regarding the musculoskeletal system. Historical: - Allergies: : No Known Allergies; ld1 - PMHx: : CHF; Diabetes - NIDDM; Hyperlipidemia; Hypertension; Hypothyroidism; Sleep Apnea; ld1 - PSHx: Cholecystectomy; Gastric Bypass; hysterectomy; Neck sx; ld1 - Immunization history:: Adult Immunizations up to date, Client reports receiving the 2nd dose of the Covid vaccine. - Social history:: Smoking status: Patient denies any tobacco usage or history of. Patient/guardian denies using alcohol. Screenin/27 03:34 Abuse screen: Denies threats or abuse. Denies injuries from another. Nutritional ll3 screening: No deficits noted. Tuberculosis screening: No symptoms or risk factors identified. Assessment: 07/12 21:45 General: Appears in no apparent distress. comfortable, Behavior is calm, cooperative, jb4 appropriate for age. Pain: Denies pain. Neuro: Level of Consciousness is awake, alert, obeys commands, Oriented to person, place, time, situation, Reports weakness. Cardiovascular: Patient's skin is warm and dry. Respiratory: Airway is patent Respiratory effort is even, unlabored, Respiratory pattern is regular, symmetrical. GI: Abdomen is round non-distended, Reports diarrhea, nausea, vomiting. : No signs and/or symptoms were reported regarding the genitourinary system. EENT: No signs and/or symptoms were reported regarding the EENT system. Derm: Skin is intact, Skin is pink, warm \T\ dry. Musculoskeletal: Circulation, motion, and sensation intact. Range of motion: intact in all extremities. 23:00 Reassessment: Patient appears in no apparent distress at this time. Patient and/or jb4 family updated on plan of care and expected duration. Pain level reassessed. Patient is alert, oriented x 3, equal unlabored respirations, skin warm/dry/pink. 07/13 00:00 Reassessment: Patient appears in no apparent distress at this time. Patient and/or jb4 family updated on plan of care and expected duration. Pain level reassessed. Patient is alert, oriented x 3, equal unlabored respirations, skin warm/dry/pink. 01:00 Reassessment: Patient appears in no apparent distress at this time. Patient and/or jb4 family updated on plan of care and expected duration. Pain level reassessed. Patient is alert, oriented x 3, equal unlabored respirations, skin warm/dry/pink. 02:00 Reassessment: Patient appears in no apparent distress at this time. Patient and/or jb4 family updated on plan of care and expected duration. Pain level reassessed. Patient is alert, oriented x 3, equal unlabored respirations, skin warm/dry/pink. 03:45 Reassessment: Patient appears in no apparent distress at this time. Patient and/or jb4 family updated on plan of care and expected duration. Pain level reassessed. Patient is alert, oriented x 3, equal unlabored respirations, skin warm/dry/pink. Vital Signs: 07/12 21: BP 113 / 75; Pulse 103; Resp 18; Temp 98.2(O); Pulse Ox 99% on R/A; Weight 108.86 kg; ld1 Height 5 ft. 4 in. (162.56 cm); Pain 0/10; 07/13 01:15 BP 122 / 73; Pulse 69; Resp 16; Pulse Ox 97% on R/A; jb4 02:00 BP 153 / 92; Pulse 72; Resp 16; Pulse Ox 98% on R/A; jb4 07/12 21:27 Body Mass Index 41.20 (108.86 kg, 162.56 cm) ld1 ED Course: 07/12 21:22 Patient arrived in ED. ag3 21:27 Fidencio Andrade PA is PHCP. cp 21:28 Emily Carreno MD is Attending Physician. cp 21:28 Triage completed. ld1 21:29 Arm band placed on right wrist. ld1 07/13 00:10 Inserted saline lock: 22 gauge in right forearm, using aseptic technique. Blood ds4 collected. 01:35 Gary Hernandez, LUZ ELENA is Primary Nurse. jb4 02:55 Abdomen In Process Unspecified. EDMS 03:34 Patient has correct armband on for positive identification. Bed in low position. Call ll3 light in reach. Side rails up X 1. 03:34 No provider procedures requiring assistance completed. IV discontinued, intact, ll3 bleeding controlled, No redness/swelling at site. Pressure dressing applied. Administered Medications: 03:33 Drug: Augmentin (Amoxicillin-Clavulanate) 875 mg Route: PO; ll3 Medication: 03:35 VIS not applicable for this client. ll3 Outcome: 03:26 Discharge ordered by . cp 03:35 Discharged to home via wheelchair. ll3 03:35 Condition: stable 03:35 Discharge instructions given to patient, Instructed on discharge instructions, follow up and referral plans. medication usage, Demonstrated understanding of instructions, follow-up care, medications, Prescriptions given X 1. 03:45 Patient left the ED. jb4 Signatures: Dispatcher [employer] EDMS Eric Dia ds4 Fidencio Andrade PA PA cp Bryson, James RN RN jb4 Lavinia Gama 3 Angela Nowak RN RN ld1 Raulito Faria RN RN ll3 Corrections: (The following items were deleted from the chart) 07/12 21:29 21:27 Chief complaint: Patient states: Fever, chills, body aches, fatigue, diarrhea ld1 since last Tuesday. ld1 07/13 01:37 07/12 21:45 Neuro: Level of Consciousness is awake, alert, obeys commands, Oriented to jb4 person, place, time, situation, Reports dizziness, weakness jb4 07/13 03:34 03:34 Fall Risk None identified. ll3 ll3
[2022-07-13] MEDS ORDERED: AMOX/K CLAV 875 MG TAB ONE (03:27)
--- NOTE | 2022-07-13 03:27 | EDPHYS ---
Physician Documentation [facility] Name: Lara Liu Age: 66 yrs Sex: Female : 1955 Arrival Date: 07/12/2022 Time: 21:22 Bed 2 Private MD: ED Physician Emily Carreno HPI: 07/12 22:30 This 66 yrs old Female presents to ER via Ambulatory with complaints of FEVER, CHILLS. cp 22:30 The patient reports fever, not measured (subjective). cp 22:30 Onset: The symptoms/episode began/occurred last week. Associated signs and symptoms: cp Pertinent positives: diarrhea, nausea, vomiting, body aches, chills, Pertinent negatives: cough. Severity of symptoms: in the emergency department the symptoms are unchanged despite home interventions. Historical: - Allergies: 21:29 No Known Allergies; ld1 - PMHx: 21:29 CHF; Diabetes - NIDDM; Hyperlipidemia; Hypertension; Hypothyroidism; Sleep Apnea; ld1 - PSHx: 21:29 Cholecystectomy; Gastric Bypass; hysterectomy; Neck sx; ld1 - Immunization history:: Adult Immunizations up to date, Client reports receiving the 2nd dose of the Covid vaccine. - Social history:: Smoking status: Patient denies any tobacco usage or history of. Patient/guardian denies using alcohol. ROS: 22:35 Constitutional: Positive for body aches, chills, Negative for fever, poor PO intake. cp 22:35 Eyes: Negative for injury, pain, redness, and discharge. cp 22:35 ENT: Positive for ear pain, sore throat, Negative for drainage from ear(s), difficulty swallowing, difficulty handling secretions. 22:35 Cardiovascular: Negative for chest pain, edema, palpitations. 22:35 Respiratory: Negative for cough, shortness of breath, wheezing. 22:35 Abdomen/GI: Positive for abdominal pain, nausea and vomiting, diarrhea, Negative for constipation. 22:35 Back: Negative for pain at rest, pain with movement. 22:35 : Negative for urinary symptoms. 22:35 Neuro: Negative for altered mental status, headache, weakness. 22:35 All other systems are negative. Exam: 22:40 Constitutional: The patient appears in no acute distress, alert, awake, cp non-diaphoretic, non-toxic, well developed, well nourished, obese. 22:40 Head/Face: Normocephalic, atraumatic. cp 22:40 Eyes: Periorbital structures: appear normal, Conjunctiva: normal, no exudate, no injection, Sclera: no appreciated abnormality, Lids and lashes: appear normal, bilaterally. 22:40 ENT: External ear(s): are unremarkable, Nose: is normal, Mouth: Lips: moist, Oral mucosa: moist, Posterior pharynx: Airway: no evidence of obstruction, patent, Tonsils: no enlargement, no exudate, swelling, is not appreciated, erythema, that is mild, exudate, is not appreciated. 22:40 Neck: ROM/movement: is normal, is supple, without pain, no range of motions limitations, no meningismus, no nuchal rigidity. 22:40 Chest/axilla: Inspection: normal. 22:40 Cardiovascular: Rate: tachycardic, Rhythm: regular, Edema: is not appreciated, JVD: is not appreciated. 22:40 Respiratory: the patient does not display signs of respiratory distress, Respirations: normal, no use of accessory muscles, no retractions, labored breathing, is not present, Breath sounds: are clear throughout, no decreased breath sounds, no stridor, no wheezing. 22:40 Abdomen/GI: Inspection: obese Bowel sounds: active, all quadrants, Palpation: soft, in all quadrants, mild abdominal tenderness, in the left lower quadrant, rebound tenderness, is not appreciated, involuntary guarding, is not appreciated. 22:40 Back: CVA tenderness, is absent. 22:40 Skin: cellulitis, is not appreciated, no rash present. 22:40 Neuro: Orientation: to person, place \\T\\ time. Mentation: is normal, Motor: moves all fours, strength is normal, Sensation: is normal. Vital Signs: 21:27 BP 113 / 75; Pulse 103; Resp 18; Temp 98.2(O); Pulse Ox 99% on R/A; Weight 108.86 kg; ld1 Height 5 ft. 4 in. (162.56 cm); Pain 0/10; 07/13 01:15 BP 122 / 73; Pulse 69; Resp 16; Pulse Ox 97% on R/A; jb4 02:00 BP 153 / 92; Pulse 72; Resp 16; Pulse Ox 98% on R/A; jb4 07/12 21:27 Body Mass Index 41.20 (108.86 kg, 162.56 cm) ld1 MDM: 07/12 21:39 Patient medically screened. 07/13 00:00 Differential diagnosis: viral Infection, bacterial infection, bronchitis, pneumonia cp UTI, gastroenteritis. 03:25 Data reviewed: vital signs, nurses notes, lab test result(s), radiologic studies, CT cp scan, plain films. 03:25 Counseling: I had a detailed discussion with the patient and/or guardian regarding: the cp historical points, exam findings, and any diagnostic results supporting the discharge/admit diagnosis, lab results, radiology results, the need for outpatient follow up, a family practitioner, to return to the emergency department if symptoms worsen or persist or if there are any questions or concerns that arise at home. 07/12 22:23 Order name: CBC with Diff; Complete Time: 01:16 07/13 01:16 Interpretation: Normal except: MCV 101.0; RDW 15.6. 07/12 22:23 Order name: CMP; Complete Time: 01:16 07/13 01:16 Interpretation: Normal except: GLUC 128; BUN 21; GFR 61; ALB 3.3; GLOB 4.5. 07/12 22:23 Order name: Lipase; Complete Time: 01:16 07/12 22:23 Order name: Urine Microscopic Only; Complete Time: 01:16 07/12 22:24 Order name: Influenza Screen (a \\T\\ B); Complete Time: 01:16 07/12 22:24 Order name: Strep; Complete Time: 01:16 07/12 22:24 Order name: COVID-19 SARS RT PCR (Document "Date of Onset" if Symptomatic); Complete cp Time: 01:32 07/13 02:42 Interpretation: Reviewed. 07/12 22:24 Order name: Magnesium; Complete Time: 01:16 07/13 02:42 Interpretation: Reviewed. 07/12 23:47 Order name: Urine Dipstick-Ancillary; Complete Time: 01:16 [facility] 07/13 01:06 Order name: Throat Culture [facility] 07/13 01:18 Order name: CT Abd/Pelvis - IV Contrast Only 07/13 02:26 Order name: Abdomen [facility] 09/26 22:23 Order name: IV Saline Lock; Complete Time: 00:10 cp 07/12 22:23 Order name: Labs collected and sent; Complete Time: 00:10 cp 07/12 22:23 Order name: Urine Dipstick-Ancillary (obtain specimen); Complete Time: 23:50 cp Administered Medications: 03:33 Drug: Augmentin (Amoxicillin-Clavulanate) 875 mg Route: PO; ll3 Disposition Summary: 07/13/22 03:26 Discharge Ordered Location: Home cp Problem: new cp Symptoms: have improved cp Condition: Stable cp Diagnosis - Diarrhea, unspecified cp - Otitis media, unspecified, bilateral cp - Acute pharyngitis, unspecified cp Followup: cp - With: Private Physician - When: 2 - 3 days - Reason: Recheck today's complaints Discharge Instructions: - Discharge Summary Sheet cp - Food Choices to Help Relieve Diarrhea, Adult cp - Diarrhea, Adult cp - Pharyngitis cp - Sore Throat cp Forms: - Medication Reconciliation Form cp - Thank You Letter cp - Antibiotic Education cp - Prescription Opioid Use cp - Work release form ll3 Prescriptions: - Amoxicillin 875 mg Oral Tablet - take 1 tablet by ORAL route every 12 hours for 10 days; 20 tablet; Refills: 0, cp Product Selection Permitted Signatures: Dispatcher [employer] EDFeng Poole, DUPLICATION SPECIALIST-C DUPLICATION SPECIALIST-Cla1 Fidencio Andrade PA PA cp Angela Nowak, RN RN ld1 Raulito Faria RN RN ll3
--- NOTE | 2022-07-13 16:29 | RAD REPORT ---
EXAM DESCRIPTION: CT - Abdomen Pelvis W Contrast - 07/13/2022 2:53 am CLINICAL HISTORY: 66 years, Female, [place] COMPARISON: None TECHNIQUE: Contrast-enhanced images of the abdomen and pelvis were performed utilizing 5 mm slice th ickness at 5 mm interval reconstruction from the lung bases to the ischial tuberosities after the adm inistration of IV contrast. In addition multiplanar reformats in the coronal and sagittal plane were obtained and reviewed. This exam was performed according to our departmental dose-optimization protocol, which includes auto mated exposure control, adjustment of the mA and/or kV according to patient size and/or use of iterat myah reconstruction technique. FINDINGS: The lung bases demonstrate to be clear. The liver, pancreas, spleen and adrenal glands demonstrate to be unremarkable, no focal lesions are n oted. There is a status post cholecystectomy. The kidneys demonstrate normal uptake of contrast media. No evidence for nephrolithiasis and/or hydro nephrosis. Grossly the unopacified stomach demonstrate status post gastric bypass jejunostomy, small bowel and l arge bowel demonstrate to be within normal limits. There is no evidence for bowel dilatation/or sally e air. The appendix was not visualized although no significant inflammatory changes are seen within the right lower quadrant. The urinary bladder was partially distended with no gross abnormalities. The uterus is absent. Ther e are no adnexal masses. The aorta demonstrate very minimal atheromatous plaque formation. There is no retroperitoneal lymphadenopathy. There is no evidence for ascites/or significant abnormal fluid collections. The bone windows demonstrate mild diffuse bony osteopenia. Multilevel degenerative disc disease. There is posterior neurostimulator within the left sacrum. Injection granulomas posterior aspect of t he paraspinal lower lumbar spine and inferior anterior pelvic wall. IMPRESSION: No acute intra-abdominal process. Status post gastric bypass jejunostomy. Status post cholecystectomy and hysterectomy. Electronically signed by: Pedro Badillo MD 07/13/2022 3:11 AM CDT Due to temporary technical issues with the PACS/Fluency reporting system, reports are being signed by the in house radiologists without review as a courtesy to insure prompt reporting. The interpreting radiologist is fully responsible for the content of the report.
== END 2022-07-13 03:45 | disposition home or self-care (01) ==
LOC: ER 21:02
DX: H66.93 Otitis media, unspecified, bilateral (principal); R19.7 Diarrhea, unspecified; J02.9 Acute pharyngitis, unspecified; R11.2 Nausea with vomiting, unspecified; I10 Essential (primary) hypertension; Z20.822 Contact with and (suspected) exposure to COVID-19
CPT/HCPCS: 87070; 85025; 36415; 83735; 87081; 83690; 80053; 87804 ×2; 74177; U0003; Q9967; 81003; 81015

== ENCOUNTER 2023-03-28 11:00 | Inpatient (IN) | payer OTHER ==
--- OUTSIDE RECORDS SUMMARY | 2023-03-28 11:08 | XMS REPORT | Continuity of Care Document ---
:1955 Author Organization [facility] t Address [address] [facility] [address] [place] [address] Care Team Providers Name Role Phone Jonah CHAVEZ, Erasmo Primary Care Physician [phone] AMARILIS BAHENA Attending Clinician Unavailable AMARILIS BAHENA Attending Clinician Unavailable DR AILYN SPRING Attending Clinician Unavailable GABY ALBERTS Attending Clinician Unavailable Joselyn Armenta MD Attending Clinician Provider, [facility] Attending Clinician Unavailable Unknown, Attending Attending Clinician Unavailable LEANDRA DANIEL Attending Clinician Unavailable CHILANGO HUANG Attending Clinician Unavailable MARY LANDAVERDE Attending Clinician Unavailable Doctor Unassigned, [place] Attending Clinician Unavailable Leonie Carlson MD Attending Clinician Uriel Ascencio MD Attending Clinician Only, Adc Test Attending Clinician Unavailable Shekhar Liang MD Attending Clinician SHEKHAR LIANG Attending Clinician Unavailable RADHIKA FERNÁNDEZ Attending Clinician Unavailable Radhika De Guzman Attending Clinician Anthony Reyes RN Attending Clinician Unavailable CHRISTIAN DIAZ Attending Clinician Unavailable ISRRAEL GAONA Attending Clinician Unavailable AILYN SPRING Attending Clinician Unavailable DARLYN YANES Attending Clinician Unavailable DARLYN YANES Attending Clinician Unavailable AMARILIS BAHENA Admitting Clinician Unavailable DR AILYN SPRING Admitting Clinician Unavailable GABY ALBERTS Admitting Clinician Unavailable WILLIAM AVILA Admitting Clinician Unavailable EMERGENCY ROOM, EMERGENCY Admitting Clinician Unavailable Payers Payer Name Policy Type Policy Number Effective Date Expiration Date Noemí [facility] [id number] 2020 00:00:00 MEDICARE PART A [id number] 2013 \T\ B 00:00:00 Problems Condition Condition Condition Status Onset Resolution Last Treating Co mments Source Name Details Category Date Date Treatment Clinician Date Overactive Overactive Disease Active Overview : [facility] bladder bladder 02-22 Formatt[facility] ity o f 00:00: g of this [place] 00 note Medical might be Branch different from the original. Added automatic ally from request for surgery [id number] Sepsis, Sepsis, Disease Recurre [facility] due to [facility] n[facility]14 [facility] unspecifie unspecifie 00:00: Me dical d organism d organism 00 Ce nter DM DM Disease Recurre [facility] (diabetes (diabetes nce 5-14 [facility] mellitus), mellitus), 00:00: Me dical type 2 type 2 00 Center Bowel and Bowel and Disease Active [facility] bladder bladder 5-14 [facility] incontinen incontinen 00:00: Me dical ce ce 00 Center Essential Essential Disease Active [facility] hypertensi hypertensi 5-14 Estella kes on on 00:00: Medical 00 Center Low back Low back Disease Active [facility] pain pain [facility] 00:[facility]: Medical [facility] Center Mastitis Mastitis Disease Active [facility] of left of left 2-14 [facility] breast breast 00:00: Medical unrelated unrelated 00 Cent er to to or or breastfeed breastfeed ing ing KWAKU KWAKU Disease Active [facility] (obstructi (obstructi 2-14 [facility]ella kes ve sleep ve sleep 00:00: Medica l apnea) apnea) 00 Center Thyroid Thyroid Disease Active [facility] disease disease 2-14 [facility] 00:00: Medical 00 Center Essential Essential Disease Active [facility] hypertensi hypertensi 2-14 [facility]ella kes on on 00:00: Medical 00 Center Diabetes Diabetes Disease Recurre [facility] mellitus mellitus nce 2-14 [facility] 00:[facility]: Medical Center Morbid Morbid Disease Recurre [facility] obesity obesity nce 2-14 [facility] 00:00: Medical 00 Center S/P S/P Disease Active [facility] cervical cervical 8-18 ity of spinal spinal 00:00: [place] fusion fusion 00 Medical Branch Sinusitis Sinusitis [...] reaction 00 l s to drug IODINE DRUG Active Swelling 2015- Univers INGREDI 05-20 ity of 00:00: [place] 00 [facility] SHRIMP DRUG Active Swelling Univers INGREDI 05-20 ity of 00:00: [place] 00 [facility] Iodine Propensi Active Swelling [facility] ty to 05-20 [facility] adverse 00:00: Medical reaction 00 Center s Shrimp Propensi Active Swelling [facility] ty to 05-20 [facility] adverse 00:00: Medical reaction 00 Center s IODINE DA Active U 2002- [facility] CONTRAST 05-27 [place] 00:00: [facility] No Known DA Active U [facility] Drug 05-27 [place] Allergie 00:00: Orthope s 00 dic Hosp[facility] No Known DA Active U [facility] Food 05-27 [place] Allergie 00:00: Orthope s 00 dic Hospita l No Known DA Active U [facility] Other 05-27 [place] Allergie 00:00: Orthope s 00 dic [facility]osp[facility] l iodine DA Active U [facility] 06-14 [place] 00:00: Orthope 00 dic [facility]ospita [facility] Social History Social Habit Start Date Stop Date Quantity Comments Source Tobacco use and 2023-01-15 2023-01-15 Smokeless tobacco Un iversity of exposure 00:00:00 00:00:[address] [facility] Exposure to 2022-04-12 2022-04-22 Not sure [facility]-CoV-2 00:00:00 08:40:00 [facility] (event) [place] Alcohol intake 2017-11-30 2017-11-[address] [facility] Karthik es 00:00:00 00:00:00 non-drinker of Medical nter alcohol (finding) Sex Assigned At [address] [facility] Estella kes 00:00:00 00:00:00 Medical Center Smoking Status Start Date Stop Date Source Never smoked tobacco [facility] Medications Ordered Filled Start Stop Current Ordering Indication Dosage Frequency Signature Comments Components Source Medication Medication Date Date Medication? Clinician (SIG) Name Name luisaACYclovi Yes [id number] 1g Take 1 Univers r 1 gram 5-05 tablet by ity of tablet 00:00: mouth in [place] 00 the Medical morning. Branch VALACYCLOVI 2021-10 Yes [id number] TAKE 1 Univers R 1 gram 2-30 TABLET BY ity of tablet 00:00: MOUTH [place] 00 EVERY DAY Medical Branch [facility]10 Yes [id number] TAKE 1 Univers R 1 gram 2-30 TABLET BY ity of tablet 00:00: MOUTH [place] 00 EVERY DAY Medical Branch [facility] 2021-10 Yes [id number] TAKE 1 Univers R 1 gram 2-30 TABLET BY ity of tablet 00:00: MOUTH [place] 00 EVERY DAY Medical Branch [facility] 2021-10 Yes [id number] TAKE 1 Univers R 1 gram 2-30 TABLET BY ity of tablet 00:00: MOUTH [place] 00 EVERY DAY Medical Branch [facility] 2021-10 Yes [id number] TAKE 1 Univers R 1 gram 2-30 TABLET BY ity of tablet 00:00: MOUTH [place] 00 EVERY DAY [facility]- No [id number] TAKE 1 Univers R 1 gram 2-30 05-05 TABLET BY ity o f tablet 00:00: 00:00 MOUTH [place] 00 :00 EVERY DAY Medical Branch [facility] 2021-10 Yes [id number] TAKE 1 Univers R 1 gram 0-04 TABLET BY ity of tablet 00:00: MOUTH [place] 00 EVERY DAY Medical Branch [facility] 2021-10- No [id number] TAKE 1 Univers R 1 gram 0-04 12-30 TABLET BY ity o f tablet 00:00: 00:00 MOUTH [place] 00 :00 EVERY DAY Medical Branch [facility] 2021-10- No [id number] TAKE 1 Univers R 1 gram 0-04 12-30 TABLET BY ity o f tablet 00:00: 00:00 MOUTH [place] 00 :00 EVERY DAY Medical Branch EFFEXOR 0 Yes None Univers ORAL 6-02 Entered ity of 09:48: [address] MULTIVITAMI Yes 1{tbl} Take 1 Un luigi N ORAL 6-02 tablet by ity of 09:48: mouth. [address] venlafaxine Yes 150mg Take 150 U nivers XR 150 mg 6-02 mg by ity of 24 hr 09:48: mouth. [address] clopidogreL Yes 75mg Take 75 mg Univers 75 mg 6-02 by mouth ity of tablet 09:48: daily. [place] 18 Medical Branch aspirin 81 0 Yes Take 1 Unive rs mg Cap 6-02 TAB-CAP/M2 ity of 09:48: by mouth [place] [address] daily. Medical Branch carvediloL 0 Yes 6.25mg Take 6.25 Univers 6.25 mg 6-02 mg by ity of tablet 09:48: mouth 2 [place] [address] (two) Medical times [place] daily with meals. gabapentin 2021-0 Yes 300mg Take 300 Un [facility]igi 300 mg 6-02 mg by ity of capsule 09:48: mouth 2 [place] [address] (two) Medical times Branch daily. atorvastati 0 Yes 10mg Take 10 mg Univers n 10 mg 6-02 by mouth ity of tablet 09:48: at [place] [address] bedtime. Medical Branch scopolamine Yes 1.5mg Apply 1.5 Univers transdermal 6-02 mg to ity of 1 mg over 3 09:48: area(s) as [facility] patch 18 needed. Medica l Branch EFFEXOR 0 Yes None Univers ORAL 6-02 Entered ity of 09:48: [address] Branch MULTIVITAMI 0 Yes 1{tbl} Take 1 Un luigi N ORAL 6-02 tablet by ity of 09:48: mouth. [place] [address] Medical Branch venlafaxine 0 Yes 150mg Take 150 U nivers XR 150 mg 6-02 mg by ity of 24 hr 09:48: mouth. [place] [address] Medical Branch clopidogreL 0 Yes 75mg Take 75 mg Univers 75 mg 6-02 by mouth ity of tablet 09:48: daily. [address] Branch aspirin 81 0 Yes Take 1 Unive rs mg Cap 6-02 TAB-CAP/M2 ity of 09:48: by mouth [place] [address] daily. Medical Branch carvediloL 0 Yes 6.25mg Take 6.25 Univers 6.25 mg 6-02 mg by ity of tablet 09:48: mouth 2 [place] [address] (two) Medical times [place] daily with meals. gabapentin 2021-0 Yes 300mg Take 300 Un [place]igi 300 mg 6-02 mg by ity of capsule 09:48: mouth 2 [place] [address] (two) Medical times Branch daily. atorvastati 0 Yes 10mg Take 10 mg Univers n 10 mg 6-02 by mouth ity of tablet 09:48: at [place] [address] bedtime. Medical Branch scopolamine Yes 1.5mg Apply 1.5 Univers transdermal 6-02 mg to ity of 1 mg over 3 09:48: area(s) as [place] days patch 18 needed. Medica l Branch EFFEXOR Yes None Univers ORAL 6-02 Entered ity of 09:48: [place] [address] Medical Branch MULTIVITAMI Yes 1{tbl} Take 1 Un luigi N ORAL 6-02 tablet by ity of 09:48: mouth. [place] [address] Medical Branch venlafaxine Yes 150mg Take 150 U nivers XR 150 mg 6-02 mg by ity of 24 hr 09:48: mouth. [place] [address] Medical Branch clopidogreL Yes 75mg Take 75 mg Univers 75 mg 6-02 by mouth ity of tablet 09:48: daily. [place] [address] Medical Branch aspirin 81 Yes Take 1 Unive rs mg Cap 6-02 TAB-CAP/M2 ity of 09:48: by mouth [place] [address] daily. Medical Branch carvediloL Yes 6.25mg Take 6.25 Univers 6.25 mg 6-02 mg by ity of tablet 09:48: mouth 2 [place] [address] (two) Medical times Branch daily with meals. gabapentin Yes 300mg Take 300 Un luigi 300 mg 6-02 mg by ity of capsule 09:48: mouth 2 [place] [address] (two) Medical times Branch daily. atorvastati Yes 10mg Take 10 mg Univers n 10 mg 6-02 by mouth ity of tablet 09:48: at [place] [address] bedtime. Medical Branch scopolamine Yes 1.5mg Apply 1.5 Univers transdermal 6-02 mg to ity of 1 mg over 3 09:48: area(s) as [place] days patch 18 needed. Medica l Branch EFFEXOR Yes None Univers ORAL 6-02 Entered ity of 09:48: [place] [address] Medical Branch MULTIVITAMI Yes 1{tbl} Take 1 Un luigi N ORAL 6-02 tablet by ity of 09:48: mouth. [place] [address] Medical Branch venlafaxine Yes 150mg Take 150 U nivers XR 150 mg 6-02 mg by ity of 24 hr 09:48: mouth. [place] [address] Medical Branch clopidogreL Yes 75mg Take 75 mg Univers 75 mg 6-02 by mouth ity of tablet 09:48: daily. [address] Branch aspirin 81 0 Yes Take 1 Unive rs mg Cap 6-02 TAB-CAP/M2 ity of 09:48: by mouth [place] 18 daily. Medical Branch carvediloL 0 Yes 6.25mg Take 6.25 Univers 6.25 mg 6-02 mg by ity of tablet 09:48: mouth 2 [place] [address] (two) Medical times Branch daily with meals. gabapentin 0 Yes 300mg Take 300 Un luigi 300 mg 6-02 mg by ity of capsule 09:48: mouth 2 [place] [address] (two) Medical times Branch daily. atorvastati Yes 10mg Take 10 mg Univers n 10 mg 6-02 by mouth ity of tablet 09:48: at [place] [address] bedtime. Medical Branch scopolamine Yes 1.5mg Apply 1.5 Univers transdermal 6-02 mg to ity of 1 mg over 3 09:48: area(s) as [facility] patch 18 needed. Medica l Branch EFFEXOR Yes None Univers ORAL 6-02 Entered ity of 09:48: [place] [address] Medical Branch MULTIVITAMI 0 Yes 1{tbl} Take 1 Un luigi N ORAL 6-02 tablet by ity of 09:48: mouth. [place] [address] Medical Branch venlafaxine Yes 150mg Take 150 U nivers XR 150 mg 6-02 mg by ity of 24 hr 09:48: mouth. [place] [address] Medical Branch clopidogreL Yes 75mg Take 75 mg Univers 75 mg 6-02 by mouth ity of tablet 09:48: daily. [place] [address] Medical Branch aspirin 81 0 Yes Take 1 Unive rs mg Cap 6-02 TAB-CAP/M2 ity of 09:48: by mouth [place] 18 daily. Medical Branch carvediloL 0 Yes 6.25mg Take 6.25 Univers 6.25 mg 6-02 mg by ity of tablet 09:48: mouth 2 [place] [address] (two) Medical times Branch daily with meals. gabapentin 0 Yes 300mg Take 300 Un luigi 300 mg 6-02 mg by ity of capsule 09:48: mouth 2 [place] [address] (two) Medical times Branch daily. atorvastati 2021-0 Yes 10mg Take 10 mg Univers n 10 mg 6-02 by mouth ity of tablet 09:48: at [place] [address] bedtime. Medical Branch scopolamine 2021-0 Yes 1.5mg Apply 1.5 Univers transdermal 6-02 mg to ity of 1 mg over 3 09:48: area(s) as [place] days patch 18 needed. Medica l Branch EFFEXOR 2021-0 Yes None Univers ORAL 6-02 Entered ity of 09:48: [place] [address] Medical Branch MULTIVITAMI 0 Yes 1{tbl} Take 1 Un luigi N ORAL 6-02 tablet by ity of 09:48: mouth. [place] [address] Medical Branch venlafaxine 0 Yes 150mg Take 150 U nivers XR 150 mg 6-02 mg by ity of 24 hr 09:48: mouth. [place] [address] Medical Branch clopidogreL 0 Yes 75mg Take 75 mg Univers 75 mg 6-02 by mouth ity of tablet 09:48: daily. [place] [address] Medical Branch aspirin 81 2021-0 Yes Take 1 Unive rs mg Cap 6-02 TAB-CAP/M2 ity of 09:48: by mouth [place] [address] daily. Medical Branch carvediloL 0 Yes 6.25mg Take 6.25 Univers 6.25 mg 6-02 mg by ity of tablet 09:48: mouth 2 [place] [address] (two) Medical times [place] daily with meals. gabapentin 2021-0 Yes 300mg Take 300 Un [place] 300 mg 6-02 mg by ity of capsule 09:48: mouth 2 [place] [address] (two) Medical times Branch daily. atorvastati 2021-0 Yes 10mg Take 10 mg Univers n 10 mg 6-02 by mouth ity of tablet 09:48: at [place] [address] bedtime. Medical Branch scopolamine 2021-0 Yes 1.5mg Apply 1.5 Univers transdermal 6-02 mg to ity of 1 mg over 3 09:48: area(s) as [place] days patch 18 needed. Medica l Branch EFFEXOR 2021-0 Yes None Univers ORAL 6-02 Entered ity of 09:48: [place] [address] Medical Branch MULTIVITAMI 2022-0 Yes 1{tbl} Take 1 Un luigi N ORAL 6-02 tablet by ity of 09:48: mouth. [place] [address] Medical Branch venlafaxine 0 Yes 150mg Take 150 U nivers XR 150 mg 6-02 mg by ity of 24 hr 09:48: mouth. [place] [address] Medical Branch clopidogreL 0 Yes 75mg Take 75 mg Univers 75 mg 6-02 by mouth ity of tablet 09:48: daily. [address] Branch aspirin 81 0 Yes Take 1 Unive rs mg Cap 6-02 TAB-CAP/M2 ity of 09:48: by mouth [place] 18 daily. Medical Branch carvediloL Yes 6.25mg Take 6.25 Univers 6.25 mg 6-02 mg by ity of tablet 09:48: mouth 2 [place] [address] (two) Medical times Branch daily with meals. gabapentin Yes 300mg Take 300 Un [place] 300 mg 6-02 mg by ity of capsule 09:48: mouth 2 [place] [address] (two) Medical times Branch daily. atorvastati Yes 10mg Take 10 mg Univers n 10 mg 6-02 by mouth ity of tablet 09:48: at [place] [address] bedtime. Medical Branch scopolamine Yes 1.5mg Apply 1.5 Univers transdermal 6-02 mg to ity of 1 mg over 3 09:48: area(s) as [place] [facility] patch 18 needed. Medica l Branch EFFEXOR 0 Yes None Univers ORAL 6-02 Entered ity of 09:48: [address] Branch MULTIVITAMI Yes 1{tbl} Take 1 Un luigi N ORAL 6-02 tablet by ity of 09:48: mouth. [place] [address] Medical Branch venlafaxine Yes 150mg Take 150 U nivers XR 150 mg 6-02 mg by ity of 24 hr 09:48: mouth. [place] [address] Medical Branch clopidogreL 0 Yes 75mg Take 75 mg Univers 75 mg 6-02 by mouth ity of tablet 09:48: daily. [address] aspirin 81 0 Yes Take 1 Unive rs mg Cap 6-02 TAB-CAP/M2 ity of 09:48: by mouth [place] 18 daily. Medical Branch carvediloL 0 Yes 6.25mg Take 6.25 Univers 6.25 mg 6-02 mg by ity of tablet 09:48: mouth 2 [place] [address] (two) Medical times Branch daily with meals. gabapentin 2021-0 Yes 300mg Take 300 Un [place]igi 300 mg 6-02 mg by ity of capsule 09:48: mouth 2 [place] [address] (two) Medical times Branch daily. atorvastati 2021-0 Yes 10mg Take 10 mg Univers n 10 mg 6-02 by mouth ity of tablet 09:48: at [place] [address] bedtime. Medical Branch scopolamine 0 Yes 1.5mg Apply 1.5 Univers transdermal 6-02 mg to ity of 1 mg over 3 09:48: area(s) as [facility] patch 18 needed. Medica l Branch EFFEXOR 0 Yes None Univers ORAL 6-02 Entered ity of 09:48: [place] [address] Medical Branch MULTIVITAMI 0 Yes 1{tbl} Take 1 Un luigi N ORAL 6-02 tablet by ity of 09:48: mouth. [place] [address] Medical Branch venlafaxine 0 Yes 150mg Take 150 U nivers XR 150 mg 6-02 mg by ity of 24 hr 09:48: mouth. [place] [address] Medical Branch clopidogreL 0 Yes 75mg Take 75 mg Univers 75 mg 6-02 by mouth ity of tablet 09:48: daily. [place] [address] Medical Branch aspirin 81 0 Yes Take 1 Unive rs mg Cap 6-02 TAB-CAP/M2 ity of 09:48: by mouth [place] [address] daily. Medical Branch carvediloL 0 Yes 6.25mg Take 6.25 Univers 6.25 mg 6-02 mg by ity of tablet 09:48: mouth 2 [place] [address] (two) Medical times Branch daily with meals. gabapentin 2021-0 Yes 300mg Take 300 Un [place] 300 mg 6-02 mg by ity of capsule 09:48: mouth 2 [place] [address] (two) Medical times Branch daily. atorvastati 2021-0 Yes 10mg Take 10 mg Univers n 10 mg 6-02 by mouth ity of tablet 09:48: at [place] [address] bedtime. Medical Branch scopolamine 2021-0 Yes 1.5mg Apply 1.5 Univers transdermal 6-02 mg to ity of 1 mg over 3 09:48: area(s) as [place] days patch 18 needed. Medica l Branch cephALEXin 2021-0 Yes [id number] 500mg Take 1 Univers 500 mg 6-02 capsule by ity of capsule 00:00: mouth 2 (two) Medical times Branch daily. ibuprofen 2021-0 Yes [id number] 600mg Take 1 Univers 600 mg 6-02 [...] Indication s: acute pain acetaminoph 2021-0 Yes [id number] 650mg Take 1 Univers en (TYLENOL 6-02 tablet by ity of 8 HOUR) 650 00:00: mouth [place] mg CR 00 every 6 Medical tablet (six) Branch hours as needed for Pain. cephALEXin 2021-0 Yes [id number] 500mg Take 1 Univers 500 mg 6-02 capsule by ity of capsule 00:00: mouth (two) Medical times Branch daily. ibuprofen 2021-0 Yes [id number] 600mg Take 1 Univers 600 mg 6-02 [...] (scale 7-10). Indication s: acute pain acetaminoph 2-0 Yes [id number] 650mg Take 1 Univers en (TYLENOL 6-02 tablet by ity of 8 HOUR) 650 00:00: mouth [place] mg CR 00 every 6 Medical tablet (six) Branch hours as needed for Pain. cephALEXin 2-0 Yes [id number] 500mg Take 1 Univers 500 mg 6-02 capsule by ity of capsule 00:00: mouth 2 [place] (two) Medical times Branch daily. ibuprofen 2-0 Yes [id number] 600mg Take 1 Univers 600 mg 6-02 [...] Indication s: acute pain acetaminoph 2021-0 Yes [id number] 650mg Take 1 Univers en (TYLENOL 6-02 tablet by ity of 8 HOUR) 650 00:00: mouth [place] mg CR 00 every 6 Medical tablet (six) Branch hours as needed for Pain. cephALEXin 2-0 Yes [id number] 500mg Take 1 Univers 500 mg 6-02 capsule by ity of capsule 00:00: mouth 2 (two) Medical times Branch daily. ibuprofen 2-0 Yes [id number] 600mg Take 1 Univers 600 mg 6-02 [...] (scale 7-10). Indication s: acute pain acetaminoph 2-0 Yes [id number] 650mg Take 1 Univers en (TYLENOL 6-02 tablet by ity of 8 HOUR) 650 00:00: mouth [place] mg CR 00 every 6 Medical tablet (six) Branch hours as needed for Pain. cephALEXin 2022-0 Yes [id number] 500mg Take 1 Univers 500 mg 6-02 capsule by ity of capsule 00:00: mouth 2 [place] 00 (two) Medical times Branch daily. ibuprofen 2-0 Yes [id number] 600mg Take 1 Univers 600 mg 6-02 [...] (scale 7-10). Indication s: acute pain acetaminoph 2-0 Yes [id number] 650mg Take 1 Univers en (TYLENOL 6-02 tablet by ity of 8 HOUR) 650 00:00: mouth [place] mg CR 00 every 6 Medical tablet (six) Branch hours as needed for Pain. cephALEXin 2-0 Yes [id number] 500mg Take 1 Univers 500 mg 6-02 capsule by ity of capsule 00:00: mouth 2 [place] 00 (two) Medical times Branch daily. ibuprofen 2-0 Yes [id number] 600mg Take 1 Univers 600 mg 6-02 [...] Indication s: acute pain acetaminoph 2021-0 Yes [id number] 650mg Take 1 Univers en (TYLENOL 6-02 tablet by ity of 8 HOUR) 650 00:00: mouth [place] mg CR 00 every 6 Medical tablet (six) Branch hours as needed for Pain. cephALEXin 2-0 Yes [id number] 500mg Take 1 Univers 500 mg 6-02 capsule by ity of capsule 00:00: mouth 2 [place] 00 (two) Medical times Branch daily. ibuprofen 2-0 Yes [id number] 600mg Take 1 Univers 600 mg 6-02 tablet by ity of tablet 00:00: mouth [place] 00 every 6 Medical (six) Branch hours as needed for Pain (scale 1-3) or Pain (scale 4-6). oxyCODONE 5 2-0 Yes [id number] 5mg Take 1 Univ ers mg 6-02 tablet by ity of immediate 00:00: mouth [place] release 00 every 6 Medical tablet (six) Branch hours as needed for Pain (scale 7-10). Indication s: acute pain acetaminoph 2-0 Yes [id number] 650mg Take 1 Univers en (TYLENOL 6-02 tablet by ity of 8 HOUR) 650 00:00: mouth [place] mg CR 00 every 6 Medical tablet (six) Branch hours as needed for Pain. cephALEXin 2022-0 Yes [id number] 500mg Take 1 Univers 500 mg 6-02 capsule by ity of capsule 00:00: mouth 2 [place] 00 (two) Medical times Branch daily. ibuprofen 2022-0 Yes [id number] 600mg Take 1 Univers 600 mg 6-02 [...] Indication s: acute pain acetaminoph 2021-0 Yes [id number] 650mg Take 1 Univers en (TYLENOL 6-02 tablet by ity of 8 HOUR) 650 00:00: mouth [place] mg CR 00 every 6 Medical tablet (six) Branch hours as needed for Pain. cephALEXin 2021-0 Yes [id number] 500mg Take 1 [facility] 500 mg 6-02 capsule by ity of capsule 00:00: mouth 2 [place] 00 (two) Medical times Branch daily. ibuprofen 2-0 Yes [id number] 600mg Take 1 Univers 600 mg 6-02 tablet by ity of tablet 00:00: mouth [place] 00 every 6 Medical (six) Branch hours as needed for Pain (scale 1-3) or Pain (scale 4-6). oxyCODONE 5 2-0 Yes [id number] 5mg Take 1 Univ ers mg 6-02 tablet by ity of immediate 00:00: mouth [place] release 00 every 6 Medical tablet (six) Branch hours as needed for Pain (scale 7-10). Indication s: acute pain acetaminoph 2-0 Yes [id number] 650mg Take 1 Univers en (TYLENOL 6-02 tablet by ity of 8 HOUR) 650 00:00: mouth [place] mg CR 00 every 6 Medical tablet (six) Branch hours as needed for Pain. furosemide 2022-0 Yes 40mg Take 40 mg [...] mouth 2 ity of tablet 00:00: (two) [place] 00 times Medical daily. Branch furosemide 2022-0 Yes 40mg Take 40 mg U nivers 40 mg 4-30 by mouth 2 ity of tablet 00:00: (two) [place] 00 times Medical daily. Branch furosemide 2022-0 Yes 40mg Take 40 mg U nivers 40 mg 4-30 by mouth 2 ity of tablet 00:00: (two) [place] 00 times Medical daily. Branch furosemide 2022-0 Yes 40mg Take 40 mg U nivers 40 mg 4-30 by mouth 2 ity of tablet 00:00: (two) [place] 00 times Medical daily. Branch furosemide 2022-0 Yes 40mg Take 40 mg U nivers 40 mg 4-30 by mouth 2 ity of tablet 00:00: (two) [place] 00 times Medical daily. Branch furosemide 2022-0 Yes 40mg Take 40 mg U nivers 40 mg 4-30 by mouth 2 ity of tablet 00:00: (two) [place] 00 times Medical daily. Branch KCL 20 mEq 2022-0 Yes 20meq Take 20 Uni vers tablet 3-25 mEq by ity of 00:00: mouth 00 daily. Medical Branch KCL 20 mEq 2022-0 Yes 20meq Take 20 Uni vers tablet 3-25 mEq by ity of 00:00: mouth 00 daily. Medical Branch KCL 20 mEq 2022-0 Yes 20meq Take 20 Uni vers tablet 3-25 mEq by ity of 00:00: mouth 00 daily. Medical Branch KCL 20 mEq 2022-0 Yes 20meq Take 20 Uni vers tablet 3-25 mEq by ity of 00:00: mouth 00 daily. Medical Branch KCL 20 mEq 2021-0 Yes 20meq Take 20 Uni vers tablet 3-25 mEq by ity of 00:00: mouth [place] 00 daily. Medical Branch KCL 20 mEq 2-0 Yes 20meq Take 20 Uni vers tablet 3-25 mEq by ity of 00:00: mouth [place] 00 daily. Medical Branch KCL 20 mEq 2-0 Yes 20meq Take 20 Uni vers tablet 3-25 mEq by ity of 00:00: mouth [place] 00 daily. Medical Branch KCL 20 mEq 2-0 Yes 20meq Take 20 Uni vers tablet 3-25 mEq by ity of 00:00: mouth [place] 00 daily. Medical Branch KCL 20 mEq 2-0 Yes 20meq Take 20 Uni vers tablet 3-25 mEq by ity of 00:00: mouth [place] 00 daily. Medical Branch mupirocin 2 2021-0 Yes Apply to Un luigi % ointment 2-18 affected ity o f 00:00: area(s) [address] [place] [address] (two) Medical times Branch daily. mupirocin 2 2021-0 Yes Apply to Un luigi % ointment 2-18 affected ity o f 00:00: area(s) [address] [place] [address] (two) Medical times Branch daily. mupirocin 2 2-0 Yes Apply to [facility] % ointment 2-18 affected ity o f 00:00: area(s) 2 [place] 00 (two) Medical times Branch daily. mupirocin 2 2-0 Yes Apply to [facility] % ointment 2-18 affected ity o f 00:00: area(s) 2 [place] 00 (two) Medical times Branch daily. mupirocin 2 2-0 Yes Apply to [facility] % ointment 2-18 affected ity o f 00:00: area(s) 2 [place] 00 (two) Medical times Branch daily. mupirocin 2 2022-0 Yes Apply to [facility] % ointment 2-18 affected ity o f 00:00: area(s) 2 [place] (two) Medical times Branch daily. mupirocin 2 2-0 Yes Apply to [facility] % ointment 2-18 affected ity o f 00:00: area(s) 2 [place] (two) Medical times Branch daily. mupirocin 2 2021-0 Yes Apply to [facility] % ointment 2-18 affected ity o f 00:00: area(s) 2 [place] 00 (two) Medical times Branch daily. mupirocin 2 2021-0 Yes Apply to [facility] % ointment 2-18 affected ity o f 00:00: area(s) 2 [place] 00 (two) Medical times Branch daily. valACYclovi 2020-10 Yes [id number] 1g Take 1 [facility] r 1 gram 2-07 tablet by ity of tablet 00:00: mouth [place] 00 daily. Medical Branch valACYclovi 2020-10 Yes [id number] 1g Take 1 [facility] r 1 gram 2-07 tablet by ity of tablet 00:00: mouth [place] 00 daily. Medical Branch valACYclovi 2020-10- No [id number] 1g Take 1 [facility] r 1 gram 2-07 10-04 tablet by ity o f tablet 00:00: 00:00 mouth [place] 00 :00 daily. Medical Branch clotrimazol 2020-0 Yes Apply to [facility] e-betametha 6-25 area(s) 2 ity of sone 00:00: (two) [place] (LOTRISONE) 00 times Medical cream daily. Branch clotrimazol 2020-0 Yes Apply to [facility] e-betametha 6-25 area(s) 2 ity of sone 00:00: (two) [place] (LOTRISONE) 00 times Medical cream daily. Branch clotrimazol 2020-0 Yes Apply to [facility] e-betametha 6-25 area(s) 2 ity of sone 00:00: (two) [place] (LOTRISONE) 00 times Medical cream daily. Branch clotrimazol 2020-0 Yes Apply to [facility] e-betametha 6-25 area(s) 2 ity of sone 00:00: (two) [place] (LOTRISONE) 00 times Medical cream daily. Branch clotrimazol 2020-0 Yes Apply to [facility] e-betametha 6-25 area(s) 2 ity of sone 00:00: (two) [place] (LOTRISONE) 00 times Medical cream daily. Branch clotrimazol 2020-0 Yes Apply to [facility] e-betametha 6-25 area(s) 2 ity of sone 00:00: (two) [place] (LOTRISONE) 00 times Medical cream daily. Branch clotrimazol 2020-0 Yes Apply to [facility] e-betametha 6-25 area(s) 2 ity of sone 00:00: (two) [place] (LOTRISONE) 00 times Medical cream daily. Branch clotrimazol 2020-0 Yes Apply to [facility] e-betametha 6-25 area(s) 2 ity of sone 00:00: (two) [place] (LOTRISONE) 00 times Medical cream daily. Branch clotrimazol 2020-0 Yes Apply to [facility] e-betametha 6-25 area(s) 2 ity of sone 00:00: (two) [place] (LOTRISONE) 00 times Medical cream daily. Branch meloxicam 0 Yes [facility] 15 mg 5-04 ity of tablet 00:00: Medical Branch meloxicam 2020-0 Yes [facility] 15 mg 5-04 ity of tablet 00:00: Medical Branch meloxicam 2020-0 Yes [facility] 15 mg 5-04 ity of tablet 00:00: Medical Branch meloxicam 2020-0 Yes [facility] 15 mg 5-04 ity of tablet 00:00: Medical Branch meloxicam 2020-0 Yes [facility] 15 mg 5-04 ity of tablet 00:00: Medical Branch meloxicam 2020-0 Yes [facility] 15 mg 5-04 ity of tablet 00:00: Medical Branch meloxicam 2020-0 Yes [facility] 15 mg 5-04 ity of tablet 00:00: Medical Branch meloxicam 2020-0 Yes [facility] 15 mg 5-04 ity of tablet 00:00: Medical Branch meloxicam 2020-0 Yes [facility] 15 mg 5-04 ity of tablet 00:00: Medical Branch divalproex 2020-0 Yes 2 tabets Uni vers ER 500 mg 5-02 at night ity of 24 hr 00:00: [place] tablet 00 Medical Branch divalproex 2020-0 Yes 2 tabets Uni vers ER 500 mg 5-02 at night ity of 24 hr 00:00: [place] tablet 00 Medical Branch divalproex 0 Yes 2 tabets Uni vers ER 500 [...] tablet by ity o f 00:00: mouth [place] 00 daily. Medical Branch levothyroxi Yes TAKE 1 Univ ers ne 137 mcg 4-26 TABLET BY ity of tablet 00:00: MOUTH [place] 00 EVERY Medical MORNING ON Branch EMPTY STOMACH JARDIANCE Yes 1{tbl} Take 1 Univ ers 25 mg Tab 4-26 tablet by ity o f 00:00: mouth [place] 00 daily. Medical Branch levothyroxi Yes TAKE 1 Univ ers ne 137 mcg 4-26 TABLET BY ity of tablet 00:00: MOUTH [place] 00 EVERY Medical MORNING ON Branch EMPTY STOMACH JARDIANCE Yes 1{tbl} Take 1 Univ ers 25 mg Tab 4-26 tablet by ity o f 00:00: mouth [place] 00 daily. Medical Branch levothyroxi Yes TAKE 1 [facility] ers ne 137 mcg 4-26 TABLET BY ity of tablet 00:00: MOUTH [place] 00 EVERY Medical MORNING ON Branch EMPTY STOMACH JARDIANCE Yes 1{tbl} Take 1 [facility] ers 25 mg Tab 4-26 tablet by ity o f 00:00: mouth [place] 00 daily. Medical Branch levothyroxi Yes TAKE 1 [facility] ers ne 137 mcg 4-26 TABLET BY ity of tablet 00:00: MOUTH [place] 00 EVERY Medical MORNING ON Branch EMPTY STOMACH JARDIANCE Yes 1{tbl} Take 1 [facility] ers 25 mg Tab 4-26 tablet by ity o f 00:00: mouth [place] 00 daily. Medical Branch levothyroxi Yes TAKE 1 [facility] ers ne 137 mcg 4-26 TABLET BY ity of tablet 00:00: MOUTH [place] 00 EVERY Medical MORNING ON Branch EMPTY STOMACH JARDIANCE Yes 1{tbl} Take 1 [facility] ers 25 mg Tab 4-26 tablet by ity o f 00:00: mouth [place] 00 daily. Medical Branch levothyroxi Yes TAKE [...] 3-16 TABLET BY ity of tablet 00:00: EVERYDAY Medical AT BEDTIME Branch traZODone 0 Yes TAKE 1 Un[facility] s 50 mg 3-16 TABLET BY ity of tablet 00:00: EVERYDAY Medical AT BEDTIME Branch traZODone 0 Yes TAKE 1 Univer s 50 mg 3-16 TABLET BY ity of tablet 00:00: EVERYDAY Medical AT BEDTIME Branch traZODone 0 Yes TAKE 1 Univer s 50 mg 3-16 TABLET BY ity of tablet 00:00: EVERYDAY Medical AT BEDTIME Branch traZODone Yes TAKE 1 Univer s 50 mg 3-16 TABLET BY ity of tablet 00:00: EVERYDAY Medical AT BEDTIME Branch traZODone 0 Yes TAKE 1 Univer s 50 mg 3-16 TABLET BY ity of tablet 00:00: EVERYDAY Medical AT BEDTIME Branch traZODone Yes TAKE 1 Univer s 50 mg 3-16 TABLET BY ity of tablet 00:00: EVERYDAY Medical AT BEDTIME Branch traZODone 0 Yes TAKE 1 Univer s 50 mg 3-16 TABLET BY ity of tablet 00:00: EVERYDAY Medical AT BEDTIME Branch traZODone Yes 50mg QD Take [address] (DESYREL) 5-18 [facility] 50 MG 18:46: nightly. Medical tablet [place] montelukast Yes 10mg QD Take [address] (SINGULAIR) 5-18 by mouth [facility] 10 mg 18:46: every Medical tablet 23 morning. [place] glimepiride Yes 1mg QD Take [address] (AMARYL) 1 5-18 by [facility] MG tablet 18:46: every Medical 23 evening. [place] furosemide Yes 20mg QD Take [address] (LASIX) 40 5-18 by [facility] MG tablet 18:46: every Medical 23 morning . [place] amitriptyli Yes 25mg QD Take [address] [facility] (ELAVIL) 5-18 by mouth [facility] 25 MG 18:46: nightly. Medical tablet 23 [place] carvedilol Yes 6.25mg Q.5D Take 6.25 CH[facility] [...] 10 MG 18:46: daily. Medical tablet 23 [place] levothyroxi Yes 150ug Take [address] ne 5-18 mcg by [employer] (SYNTHROID, 18:46: mouth Medic al LEVOTHROID) 23 Every Center 150 MCG morning on tablet an empty stomach. potassium Yes 10meq QD Take [address] chloride 5-18 mEq by [facility] (KLOR-CON) 18:46: mouth Medica l 10 MEQ CR 23 every Center tablet morning. venlafaxine Yes 150mg QD Take [address] (EFFEXOR-XR 5-18 mg by [facility] ) 150 MG 24 18:46: mouth Medic al hr capsule 23 daily. [place] meloxicam Yes 15mg QD Take [address] (MOBIC) 7.5 5-18 by mouth Luke [facility] MG tablet 18:46: daily . Medic al 23 [place] ferrous Yes 324mg Take 324 [facility] gluconate 5-18 mg by [facility] (FERGON) 18:46: mouth Medical 324 MG 23 daily with [place] tablet breakfast. cholecalcif 0 Yes 1000U QD Take 1,[address] kyle, 5-18 Units by [employer] vitamin D3, 18:46: mouth Medic al 2,000 unit 23 daily. [place] Tab ondansetron 0 Yes Take by [facility] (ZOFRAN) 8 5-18 [facility]. [facility] MG tablet 18:46: Medical 23 [place] ciprofloxac 0 Yes 500mg Take [address] in HCl 5-18 mg by [employer] (CIPRO) 500 18:46: mouth. Medi macario MG tablet 23 Center empaglifloz Yes 10mg QD Take [address] in 5-18 by [facility] (JARDIANCE) 18:46: daily. Medi macario 10 mg 23 Center tablet traZODone Yes 50mg QD Take [address] (DESYREL) 5-18 by [facility] 50 MG 18:46: nightly. Medical tablet 23 [place] montelukast Yes 10mg QD Take [address] (SINGULAIR) 5-18 by mouth [facility] 10 mg 18:46: every Medical tablet 23 morning. [place] glimepiride Yes 1mg QD Take [address] (AMARYL) 1 5-18 by [facility] MG tablet 18:46: every Medical 23 evening. [place] furosemide Yes 20mg QD Take [address] (LASIX) 40 5-18 by [facility] MG tablet 18:46: every Medical 23 morning . [place] amitriptyli Yes 25mg QD Take [address] ne (ELAVIL) 5-18 by mouth [facility] 25 MG 18:46: nightly. Medical tablet 23 [place] carvedilol Yes 6.25mg Q.5D Take 6.25 [facility] [...] 10 MG 18:46: daily. Medical tablet 23 [place] levothyroxi Yes 150ug Take [address] ne 5-18 mcg by [facility] (SYNTHROID, 18:46: mouth Medic al LEVOTHROID) 23 Every Center 150 MCG morning on tablet an empty stomach. potassium Yes 10meq QD Take [address] chloride 5-18 mEq by [facility] (KLOR-CON) 18:46: mouth Medica l 10 MEQ CR 23 every Center tablet morning. venlafaxine 2019-0 Yes 150mg QD Take [address] (EFFEXOR-XR 5-18 mg by [facility] ) 150 MG 24 18:46: mouth Medic al hr capsule 23 daily. [place] meloxicam Yes 15mg QD Take [address] (MOBIC) 7.5 5-18 by mouth Luke [facility] MG tablet 18:46: daily . Medic al 23 Center ferrous Yes 324mg Take 324 [facility] gluconate 5-18 mg [facility] (FERGON) 18:46: mouth Medical 324 MG 23 daily with [facility] tablet breakfast. cholecalcif Yes 1000U QD Take 1,[address] [facility]yle, 5-18 Units by [facility] vitamin D3, 18:46: mouth Medic al 2,000 unit 23 daily. [place] Tab ondansetron Yes Take by [facility] (ZOFRAN) 8 5-18 mouth. [facility] MG tablet 18:46: Medical 23 [place] ciprofloxac Yes 500mg Take [address] in HCl 5-18 mg by [facility] (CIPRO) 500 18:46: mouth. Medi macario MG tablet 23 [place] empaglifloz Yes 10mg QD Take [address] in 5-18 by [facility] (JARDIANCE) 18:46: daily. Medi macario 10 mg 23 [place] tablet traZODone Yes 50mg QD Take [address] (DESYREL) 5-18 by [facility] 50 MG 18:46: nightly. Medical tablet 23 [place] montelukast Yes 10mg QD Take [address] (SINGULAIR) 5-18 by mouth [facility] 10 mg 18:46: every Medical tablet 23 morning. [place] glimepiride Yes 1mg QD Take [address] (AMARYL) 1 5-18 by mouth [facility] MG tablet 18:46: every Medical 23 evening. [place] furosemide Yes 20mg QD Take [address] (LASIX) 40 5-18 by mouth [facility] MG tablet 18:46: every Medical 23 morning . [place] amitriptyli Yes 25mg QD Take [address] ne (ELAVIL) 5-18 by mouth [facility] 25 MG 18:46: nightly. Medical tablet 23 [place] carvedilol Yes 6.25mg Q.5D Take 6.25 CHI [...] 10 MG 18:46: daily. Medical tablet 23 [place] levothyroxi Yes 150ug Take [address] ne 5-18 mcg by [employer] (SYNTHROID, 18:46: mouth Medic al LEVOTHROID) 23 Every Center 150 MCG morning on tablet an empty stomach. potassium Yes 10meq QD Take [address] chloride 5-18 mEq by [facility] (KLOR-CON) 18:46: mouth Medica l 10 MEQ CR 23 every Center tablet morning. venlafaxine Yes 150mg QD Take [address] (EFFEXOR-XR 5-18 mg by [employer] ) 150 MG 24 18:46: mouth Medic al hr capsule 23 daily. [place] meloxicam Yes 15mg QD Take [address] (MOBIC) 7.5 5-18 by mouth [facility] MG tablet 18:46: daily . Medic al 23 [place] ferrous Yes 324mg Take 324 [facility] gluconate 5-18 mg by [facility] (FERGON) 18:46: mouth Medical 324 MG 23 daily with [place] tablet breakfast. cholecalcif Yes 1000U QD Take 1,[address] kyle, 5-18 Units by [employer] vitamin D3, 18:46: mouth Medic al 2,000 unit 23 daily. [place] Tab ondansetron Yes Take by [facility] (ZOFRAN) 8 5-18 mouth. [facility] MG tablet 18:46: Medical 23 [place] ciprofloxac 0 Yes 500mg Take [address] in HCl 5-18 mg by [employer] (CIPRO) 500 18:46: mouth. Medi macario MG tablet 23 [place] empaglifloz Yes 10mg QD Take [address] in 5-18 by mouth [facility] (JARDIANCE) 18:46: daily. Medi macario 10 mg 23 Center tablet traZODone Yes 50mg QD Take [address] (DESYREL) 5-18 by mouth [facility] 50 MG 18:46: nightly. Medical tablet 23 [place] montelukast Yes 10mg QD Take [address] (SINGULAIR) 5-18 by mouth [facility] 10 mg 18:46: every Medical tablet 23 morning. [place] glimepiride Yes 1mg QD Take [address] (AMARYL) 1 5-18 by mouth [facility] MG tablet 18:46: every Medical 23 evening. [place] furosemide Yes 20mg QD Take [address] (LASIX) 40 5-18 by mouth [facility] MG tablet 18:46: every Medical 23 morning . [place] amitriptyli Yes 25mg QD Take [address] ne (ELAVIL) 5-18 by mouth Luke [facility] 25 MG 18:46: nightly. Medical tablet 23 [place] carvedilol Yes 6.25mg Q.5D Take 6.25 CHI [...] 10 MG 18:46: daily. Medical tablet 23 [place] levothyroxi Yes 150ug Take 150 C HI [...] mouth Medic al hr capsule 23 daily. [place] meloxicam Yes 15mg QD Take [address] (MOBIC) 7.5 5-18 by mouth Luke s MG tablet 18:46: daily . Medic al 23 [place] ferrous Yes 324mg Take 324 [facility] gluconate 5-18 mg [facility] (FERGON) 18:46: mouth Medical 324 MG 23 daily with Center tablet breakfast. cholecalcif Yes 1000U QD Take 1,[address] kyle, 5-18 Units by [facility] vitamin D3, 18:46: mouth Medic al 2,000 unit 23 daily. [place] Tab ondansetron Yes Take by [facility] (ZOFRAN) 8 5-18 mouth. [facility] MG tablet 18:46: Medical 23 [place] ciprofloxac Yes 500mg Take [address] in HCl 5-18 mg by [facility] (CIPRO) 500 18:46: mouth. Medi macario MG tablet 23 [place] empaglifloz Yes 10mg QD Take [address] in 5-18 by [facility] (JARDIANCE) 18:46: daily. Medi macario 10 mg 23 [place] tablet Bactrim Bactrim 2017- No Ailyn 1 tablet [facility] 11-1412 [facility] for ENT 00:00: 00:00 00 :00 Bactroban Bactroban 2018- No Ailyn 1 [place] - 0220 [facility] applicatio for EN T 00:00: 00:00 [...] l times a day with meals. potassium 2015- Yes 10meq QD Take 10 Meth ronit [...] l hours as needed for moderate pain. PHENTERMINE 0 Yes Take by [facility] HCL 8-[address] (PHENTERMIN 11:01: Hospit a E ORAL) 07 l traMADol 2015-0 Yes 50mg Q6H Take 50 mg Met [facility] (ULTRAM) 50 8-[address] mg tablet 11:01: every 6 Hospi ta 07 (six) l hours as needed for moderate pain. atorvastati 2015- Yes 10mg QD Take 10 mg Methodi n (LIPITOR) 8-[address] 10 MG 11:01: every Hospita tablet 07 evening. l carvedilol 2016-0 Yes 6.25mg Q.5D Take 6.25 [facility] (COREG) 8-[address] 6.25 MG 11:01: mouth 2 Hospita tablet 07 (two) l times a day with meals. furosemide Yes 80mg QD Take 80 mg M [facility]i (LASIX) 80 8-[address] MG tablet 11:01: daily. Hospit a 07 l chlorproMAZ Yes [...] st 11:01: mouth Hospita 07 daily. l Medrol Medrol Yes Ailyn as Center [...] [facility] for E NT Levothyroxi Levothyroxi Yes Ailny 1 tablet Center ne Sodium ne Sodium [facility] for ENT Trazodone Trazodone Yes Ailyn 1 tablet Center HCl HCl Shani at bedtime for ENT Augmentin Augmentin Yes Ailyn not Ce nter Shani defined for ENT Metformin Metformin Yes Ailyn 1 tablet Center HCl HCl Shani with meals for ENT Immunizations Ordered Filled Immunization Date Status Comments Sour e Immunization Name Name SARS-COV-2 COVID-19 2022-01-17 Completed Unive rsity of PFIZER VACCINE 00:00:00 [facility] SARS-COV-2 COVID-19 2022-01-17 Completed Unive rsity of PFIZER VACCINE 00:00:00 [facility] SARS-COV-2 COVID-19 2022-01-17 Completed Unive rsity of PFIZER VACCINE 00:00:00 [facility] SARS-COV-2 COVID-19 2022-01-17 Completed Unive rsity of PFIZER VACCINE 00:00:00 [facility] SARS-COV-2 COVID-19 2022-01-17 Completed Unive rsity of PFIZER VACCINE 00:00:00 [facility] SARS-COV-2 COVID-19 2022-01-17 Completed Unive rsity of PFIZER VACCINE 00:00:00 [facility] SARS-COV-2 COVID-19 2022-01-17 Completed Unive rsity of PFIZER VACCINE 00:00:00 [facility] SARS-COV-2 COVID-19 2022-01-17 Completed Unive rsity of PFIZER VACCINE 00:00:00 [facility] SARS-COV-2 COVID-19 2022-01-17 Completed Unive rsity of PFIZER VACCINE 00:00:00 [facility] SARS-COV-2 COVID-19 2021-11-10 Completed Unive rsity of MODERNA VACCINE 00:00:00 [facility] SARS-COV-2 COVID-19 2021-11-10 Completed Unive rsity of MODERNA VACCINE 00:00:00 [facility] SARS-COV-2 COVID-19 2021-11-10 Completed Unive rsity of MODERNA 12+ YRS 00:00:00 [place] [facility] ical VACCINE Branch SARS-COV-2 COVID-19 2021-11-10 Completed Unive rsity of MODERNA 12+ YRS 00:00:00 [place] Med ical VACCINE Branch SARS-COV-2 COVID-19 2021-11-10 Completed Unive rsity of MODERNA 12+ YRS 00:00:00 [place] Med ical VACCINE Branch SARS-COV-2 COVID-19 2021-11-10 Completed Unive rsity of MODERNA 12+ YRS 00:00:00 [place] Med ical VACCINE Branch SARS-COV-2 COVID-19 2021-11-10 Completed Unive rsity of MODERNA 12+ YRS 00:00:00 [place] Med ical VACCINE Branch SARS-COV-2 COVID-19 2021-11-10 Completed Unive rsity of MODERNA 12+ YRS 00:00:00 [place] Med ical VACCINE Branch SARS-COV-2 COVID-19 2021-11-10 Completed Unive rsity of MODERNA 12+ YRS 00:00:00 [place] Med ical VACCINE Branch Influenza Virus 2021-09-22 Completed [facility] of [...] [place] Medica l Im,preserve Free Branch 65+ SARS-COV-2 COVID-19 2021-03-13 Completed Unive rsity of MODERNA VACCINE 00:00:00 [place] Med ical Branch SARS-COV-2 COVID-19 2021-03-13 Completed Unive rsity of MODERNA VACCINE 00:00:00 [place] Med ical Branch SARS-COV-2 COVID-19 2021-03-13 Completed Unive rsity of MODERNA 12+ YRS 00:00:00 [place] Med ical VACCINE Branch SARS-COV-2 COVID-19 2021-03-13 Completed Unive rsity of MODERNA 12+ YRS 00:00:00 [place] Med ical VACCINE Branch SARS-COV-2 COVID-19 2021-03-13 Completed Unive rsity of MODERNA 12+ YRS 00:00:00 [place] Med ical VACCINE Branch SARS-COV-2 COVID-19 2021-03-13 Completed Unive rsity of MODERNA 12+ YRS 00:00:00 [place] Med ical VACCINE Branch SARS-COV-2 COVID-19 2021-03-13 Completed Unive rsity of MODERNA 12+ YRS 00:00:00 [place] Med ical VACCINE Branch SARS-COV-2 COVID-19 2021-03-13 Completed Unive rsity of MODERNA 12+ YRS 00:00:00 [place] Med ical VACCINE Branch SARS-COV-2 COVID-19 2021-03-13 Completed Unive rsity of MODERNA 12+ YRS 00:00:00 [place] Med ical VACCINE Branch SARS-COV-2 COVID-19 2021-02-13 Completed Unive rsity of MODERNA VACCINE 00:00:00 [place] Med ical Branch SARS-COV-2 COVID-19 2021-02-13 Completed Unive rsity of MODERNA VACCINE 00:00:00 [place] Med ical Branch SARS-COV-2 COVID-19 2021-02-13 Completed Unive rsity of MODERNA 12+ YRS 00:00:00 [place] Med ical VACCINE Branch SARS-COV-2 COVID-19 2021-02-13 Completed Unive rsity of MODERNA 12+ YRS 00:00:00 [place] Med ical VACCINE Branch SARS-COV-2 COVID-19 2021-02-13 Completed Unive rsity of MODERNA 12+ YRS 00:00:00 [place] Med ical VACCINE Branch SARS-COV-2 COVID-19 2021-02-13 Completed Unive rsity of MODERNA 12+ YRS 00:00:00 [place] Med ical VACCINE Branch SARS-COV-2 COVID-19 2021-02-13 Completed Unive rsity of MODERNA 12+ YRS 00:00:00 [place] Med ical VACCINE Branch SARS-COV-2 COVID-19 2021-02-13 Completed Unive rsity of MODERNA 12+ YRS 00:00:00 [place] Med ical VACCINE Branch SARS-COV-2 COVID-19 2021-02-13 Completed Unive rsity of MODERNA 12+ YRS 00:00:00 [facility] ical VACCINE Branch Vital Signs Vital Name Observation Time Observation Value Comments Source Systolic blood 2023-01-15 23:48:00 132 mm[Hg] Univer sity of pressure [facility] Diastolic blood 2023-01-15 23:48:00 71 mm[Hg] Unive rsity of pressure [facility] Heart rate 2023-01-15 23:48:00 93 /min [facility] Body temperature 2023-01-15 23:48:[address] [facility] 2023-01-15 23:48:00 16 /min [facility] Body weight 2023-01-15 23:48:00 108.863 kg [facility] BMI 2023-01-15 23:48:00 41.20 kg/m2 [facility] Oxygen saturation in 2023-01-15 23:48:00 96 /min [facility] Arterial blood by [facility] Pulse oximetry Branch Systolic blood 2022-04-23 16:21:00 110 mm[Hg] Univer sity of pressure [facility] Diastolic blood 2022-04-23 16:21:00 69 mm[Hg] Unive rsity of pressure [facility] Heart rate 2022-04-23 16:21:00 72 /min [facility] Body height 2022-04-23 16:21:00 162.6 cm [facility] Body weight 2022-04-23 16:21:00 108.863 kg [facility] BMI 2022-04-23 16:21:00 41.20 kg/m2 [facility] Oxygen saturation in 2022-04-23 16:21:00 93 /min [facility] Arterial blood by [facility] Pulse oximetry Branch Procedures Procedure Date / Time Performed Performing Clinician Sourc e POCT GLUCOSE 2023-01-16 00:00:00 Unknown, Attending [facility] (AUTOMATED) Medical Branch POCT URINALYSIS 2023-01-15 23:56:00 Leandra Daniel [facility] POCT SARS-COV-2 2023-01-15 23:56:00 Leandra Daniel [facility] ANTIGEN (BINAX NOW) Medical Bran ch MEDICAL 2022-04-23 05:01:00 Doctor Unassigned, No [facility] RELEASE/CLEARANCE Name Medical Branch FORMS Plan of Care Planned Activity Planned Date Details Comments Source Future Scheduled 2022-06-15 Hepatitis C screening [facility] Test 23:45:44 (procedure) [code = 062326935] Future Scheduled 2022-06-15 BREAST CANCER [facility] Test 23:45:44 SCREENING [code = BREAST CANCER SCREENING] Future Scheduled 2022-06-15 COLONOSCOPY SCREENING [facility] Test 23:45:44 [code = COLONOSCOPY SCREENING] Future Scheduled 2022-06-15 SHINGLES VACCINES (1 Met [facility] Test 23:45:44 of 2) [code = SHINGLES VACCINES (1 of 2)] Future Scheduled 2022-06-15 65+ [facility]AL [facility] 23:45:44 VACCINE (1 - PCV) [code = 65+ PNEUMOCOCCAL VACCINE (1 - PCV)] Future Scheduled 2022-06-15 INFLUENZA [facility]ACCINE [facility] Test 23:45:44 [code = INFLUENZA VACCINE] Future Scheduled 2022-06-15 HEPATITIS B VACCINES Met [facility] Test 23:45:44 (1 of 3 - 3-dose series) [code = HEPATITIS B VACCINES (1 of 3 - 3-dose series)] Future Scheduled 2022-06-15 COVID-19 VACCINE (#1) [facility] Test 23:45:44 [code = COVID-19 VACCINE (#1)] Future Scheduled 2021-06-[address] [facility] Test 00:00:00 (Season Ended) [code = Medic al Center INFLUENZA VACCINE (Season Ended)] Future Scheduled 2020-10-[address] [facility] Test 00:00:00 (12+) [code = Medical Center DEPRESSION SCREENING (12+)] Future Scheduled 2019-12-[address] [facility] Test 00:00:[address] [facility] breast (procedure) [code = 099478740] Future Scheduled 2019 PNEUMOCOCCAL 65+ [address] [facility] Test 00:00:00 (1 of 1 - Medical Center [id number] PCV13) [code = PNEUMOCOCCAL 65+ YRS (1 of 1 - [id number] PCV13)] Future Scheduled 2019-08-[address] [facility] Test 00:00:00 measurement Medical Center (procedure) [code = 72279191] Future Scheduled 2004 SHINGLES VACCINES (1 CHI [...] 00:00:00 examination Medical Center (regime/therapy) [code = 248546001] Future Scheduled 1964 Urine screening for [facility] Test 00:00:00 protein (procedure) Medical Center [code = [id number]] Future Scheduled [address] [facility] Test 00:00:00 malignant neoplasm of [facility] colon (procedure) [code = 826358414] Future Scheduled 65+ [facility]OCOCCAL [facility] Test VACCINE (1 of 2 - PPSV23) [code = 65+ PNEUMOCOCCAL VACCINE (1 of 2 - PPSV23)] Future Scheduled DIABETES: [facility]AL [facility] EXAM [code = DIABETES: RETINAL EYE EXAM] Future Scheduled DIABETIC FOOT EXAM [facility] Test [code = DIABETIC FOOT EXAM] Future Scheduled URINE MICROALBUMIN [facility] Test [code = URINE MICROALBUMIN] Future Scheduled COVID-19 [facility]ACCINE (1) [facility] [code = COVID-19 VACCINE (1)] Future Scheduled Hepatitis C screening [facility] Test (procedure) [code = 024199494] Future Scheduled BREAST CANCER [facility] Test SCREENING [code = BREAST CANCER SCREENING] Future Scheduled COLONOSCOPY SCREENING [facility] Test [code = COLONOSCOPY SCREENING] Future Scheduled SHINGLES VACCINES (#[facility]) [facility] [code = SHINGLES VACCINES (#1)] Future Scheduled [facility] [code = INFLUENZA VACCINE] Encounters Start End Encounter Admission Attending Care Care Encounter Source Date/Time Date/Time Type Type Clinicians Facility Department ID 2022-02-25 Outpatient AMARILIS KEANE [facility] VICE PRESIDENT SAFETY 1 [id number] Univers 15:14:01 AMARILIS BAHENA [facility] 2022-02-24 Outpatient R AMARIILS BAHENA [facility] 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 [id number] [address] [place] 15:08:00 [facility] 2023-03-24 2023-03-24 Outpatient ARISTEOJONATANA [facility] [id number] [place] 00:00:00 00:00:[address] 2023-03-23 2023-03-23 Outpatient ARISTEOJONATANA [facility] 021 [id number] [place] 00:00:00 00:00:[address] 2023-03-09 2023-03-09 Outpatient [facility] [id number] [place] 00:00:00 00:00:[address] 2023-03-09 2023-03-09 Outpatient [facility] [id number] [place] 00:00:00 00:00:[address] 2023-03-03 2023-03-03 Outpatient GABY ALBRETS [facility] [id number] [place] 00:00:00 00:00:[address] 2023-02-28 2023-02-28 Outpatient GABY ALBERTS [facility] [id number] [place] 00:00:00 00:00:00 651 Method i 2023-02-18 2023-02-18 [facility] 1.2.840.114 [id number] Univers 00:00:00 00:00:00 Joselyn Schmidt WOMEN'S 350.1.13.10 it y of [place] 4.2.7.2.686 [place] [id number] [facility] [place] [address] [place] 2023-01-17 2023-01-17 Telephone [facility] 1.2.073.067 [id number] Univers 00:00:00 00:00:00 [facility] 350.1.13.10 i ty of [place] 4.2.7.2.686 [place] [id number] [facility] [address] OFFICE BUILDING 2023-01-15 2023-01-15 Urgent Provider, [facility] 1.2.840.114 [id number] Univers 20:20:00 20:20:00 Care Unknown, Attending HEALTH 350.1.13.10 ity of [place] 4.2.7.2.686 Jimbo as ELIZABETH?BLEA [id number] Mo dical KNEY [address] MEDICAL OFFICE BUILDING 2023-01-15 2023-01-15 Outpatient R MEGHAN [facility] [id number] Univers 20:20:00 19:23:05 LEAN[address]A ity o f [facility] 2023-01-14 2023-01-14 Telephone [facility] 1.2.641.753 [id number] Univers 00:00:00 00:00:00 [facility] 350.1.13.10 i ty of [place] 4.2.7.2.686 [place] [id number] [address] OFFICE [facility] 2022-11-08 2022-11-08 Outpatient REINA [facility] [id number] [place] 00:00:00 00:00:00 CHILANGO [address] [facility] 2022-10-18 2022-10-18 [facility] [id number] Univers 15:00:00 15:00:00 [facility] 2022-10-14 2022-10-14 [facility] 1.2.061.486 [id number] Univers 00:00:00 00:00:00 Joselyn Schmidt WOMEN'S 350.1.13.10 it y of [place] 4.2.7.2.686 [place] [id number] [facility] [place] [address] [place] [address] 2022-10-04 2022-10-04 Outpatient [facility] [id number] Univers 15:00:00 15:00:00 [facility] 2022-07-19 2022-07-19 [facility] 1.2.587.826 [id number] Univers 00:00:00 00:00:00 Joselyn LEVI'S 350.1.13.10 it y of [place] 4.2.7.2.686 [place] [id number] [facility] [place] [address] [place] [address] 2022-07-02 2022-07-02 Outpatient [facility] [id number] Univers 11:00:00 11:00:00 [facility] 2022-04-23 2022-04-23 Office [facility] 1.2.840.114 [id number] Univers 11:00:00 13:44:24 [facility] 350.1.13.10 i ty of [place] 4.2.7.2.686 [place] [id number] [address] OFFICE [facility] 2022-04-23 2022-04-23 Outpatient AMARILIS KEANE [facility] [id number] Univers 11:00:00 13:44:24 AMARILIS BAHENA [facility] 2022-04-23 2022-04-23 Outpatient R AMARILIS BAHENA [facility] [id number] Univers 11:00:00 11:00:00 AMARILIS BAHENA [facility] 2022-04-23 2022-04-23 Orders Doctor ERYN 1.2.840.114 [id number] Univers 00:00:00 00:00:00 Only Unassigned, DAMEON 350.1.13.10 ity of [place] [facility] 4.2.7.2.686 [place] as [id number] [address] 2022-04-09 2022-04-09 Outpatient R AMARILIS BAHENA [facility] [id number] Univers 10:30:00 12:04:44 AMARILIS BAHENA [facility] 2022-04-09 2022-04-09 Office [facility] 1.2.840.114 [id number] Univers 10:30:00 12:04:44 Visit [facility] 350.1.13.10 i ty of [place] 4.2.7.2.686 [place] [id number] [address] OFFICE BUILDING 2022-04-09 2022-04-09 Outpatient R AMARILIS BAHENA [facility] [id number] Univers 10:30:00 12:04:44 AMARILIS BAHENA [facility] 2022-04-06 2022-04-06 Telephone Gabriel [facility] 1.2.250.916 [id number] Univers 00:00:00 00:00:00 [facility] 350.1.13.10 i ty of [place] 4.2.7.2.686 [place] [id number] [address] OFFICE BUILDING 2022-03-26 2022-03-26 Office [facility] 1.2.840.114 [id number] Univers 11:00:00 11:30:00 Visit [facility] 350.1.13.10 i ty of [place] 4.2.7.2.686 [place] [id number] [address] OFFICE [facility] 2022-03-26 2022-03-26 Outpatient R AMARILIS BAHENA [facility] [id number] Univers 11:00:00 11:00:00 AMARILIS BAHENA li [facility] 2022-03-26 2022-03-26 Outpatient R AMARILIS BAHENA [facility] [id number] Univers 11:00:00 11:00:00 AMARILIS BAHENA li [facility] 2022-03-22 2022-03-22 Telephone [facility] 1.2.578.977 [id number] Univers 00:00:00 00:00:00 Amarilis HEALTH 350.1.13.10 i ty of [place] 4.2.7.2.686 [place] [id number] [address] OFFICE [facility] 2022-03-22 2022-03-22 Telephone [facility] 1.2.243.691 [id number] Univers 00:00:00 00:00:00 Amarilis HEALTH 350.1.13.10 i ty of [place] 4.2.7.2.686 [place] [id number] [address] OFFICE [facility] 2022-03-21 2022-03-21 Telephone ERYN Carlson 1.2.641.911 [id number] Univers 00:00:00 00:00:00 Leonie XIAO 350.1.13.10 i ty of HOSPITAL 4.2.7.2.686 [place] as [id number] [address] 2022-03-21 2022-03-21 Telephone [facility] 1.2.047.237 [id number] Univers 00:00:00 00:00:00 Amarilis HEALTH 350.1.13.10 i ty of [place] 4.2.7.2.686 [place] [id number] [address] OFFICE BUILDING 2022-03-20 2022-03-20 Telephone [facility] 1.2.247.118 [id number] Univers 00:00:00 00:00:00 Amarilis LITTLEJOHN 350.1.13.10 i ty of [place] 4.2.7.2.686 [place] P[facility]IC [id number] [facility] AND [address] [place] [address] [facility]IC 2022-03-20 2022-03-20 Telephone ERYN Ascencio 1.2.790.536 [id number] Univers 00:00:00 00:00:00 Uriel XIAO 350.1.13.10 it y of [facility] 4.2.7.2.686 Jimbo as [id number] [address] 2022-03-18 2022-03-18 Outpatient R AMARILIS BAHENA [facility] VICE PRESIDENT SAFETY [id number] Univers 06:31:00 09:48:00 AMARILIS BAHENA [facility] 2022-03-18 2022-03-18 Outpatient AMARILIS KEANE [facility] VICE PRESIDENT SAFETY [id number] Univers 06:31:00 09:48:00 AMARILIS BAHENA [facility] 2022-03-18 2022-03-18 Hospital [facility] 1.2.840.114 [id number] Univers 06:31:00 09:48:00 Encounter [facility] 350.1.13.10 ity of [facility] 4.2.7.2.686 [place] [id number] [address] ([facility]) 2022-03-18 2022-03-18 Outpatient AMARILIS KEANE [facility] VICE PRESIDENT SAFETY [id number] Univers 06:31:00 09:48:00 AMARILIS BAHENA [facility] 2022-03-18 2022-03-18 Outpatient R AMARILIS BAHENA [facility] VICE PRESIDENT SAFETY [id number] Univers 06:31:00 09:48:00 AMARILIS BAHENA [facility] 2022-03-18 2022-03-18 Outpatient R AMARILIS BAHENA [facility] VICE PRESIDENT SAFETY [id number] Univers 06:31:00 09:48:00 AMARILIS BAHENA [facility] 2022-03-18 2022-03-18 Surgery [facility] 1.2.840.114 [id number] Univers 07:05:00 08:29:00 [facility] 350.1.13.10 ity of CARE 4.2.7.2.686 [facility] AT [id number] Mo nathaniel Farris [facility] 2022-03-18 2022-03-18 Orders Doctor ERYN 1.2.840.114 [id number] Univers 00:00:00 00:00:00 Only Unassigned, DAMEON 350.1.13.10 ity of [place] HOSPITAL 4.2.7.2.686 Jimbo as [id number] [address] 2022-03-17 2022-03-17 Laboratory Only, Adc Test [facility] 1.2.840. 114 [id number] Univers 13:15:00 13:30:00 Only Shekhar Liang 350.1.13.10 ity of [place] 4.2.7.2.686 [facility] [id number] [address] 2022-03-17 2022-03-17 Outpatient R GARTH, [facility] [id number] Univers 13:15:00 13:15:00 SHKEHAR [facility] 2022-03-17 2022-03-17 Outpatient R GERHARDOSATA, [facility] [id number] Univers 13:15:00 13:15:00 SHEKHAR [facility] 2022-03-17 2022-03-17 Outpatient R FILITA, [facility] [id number] Univers 13:15:00 13:15:00 SHEKHAR [facility] 2022-03-17 2022-03-17 Orders Doctor CERNA 1.2.840.114 [id number] Univers 00:00:00 00:00:00 Only Unassigned, DAMEON 350.1.13.10 ity of [place] HOSPITAL 4.2.7.2.686 Jimbo as [id number] [address] 2022-03-12 2022-03-12 Orders Doctor CERNA 1.2.840.114 [id number] Univers 00:00:00 00:00:00 Only Unassigned, DAMEON 350.1.13.10 ity of [place] HOSPITAL 4.2.7.2.686 Jimbo as [id number] [address] 2022-03-11 2022-03-11 Patient Gabriel [facility] 1.2.840.114 [id number] Univers 00:00:00 00:00:00 Secure Msg [facility] 350.1.13.10 ity of [place] 4.2.7.2.686 [place] [id number] [address] OFFICE [facility] 2022-03-09 2022-03-09 Emergency X [facility] ERT [id number] Univers 15:17:00 20:06:00 [facility] 2022-03-09 2022-03-09 Emergency [facility] 1.2.539.690 [id number] Univers 15:17:00 20:06:00 Radhika Roxana CLAUDIO 350.1.13.10 i ty of [place] 4.2.7.2.686 [place] [id number] [address] 2022-03-09 2022-03-09 Emergency X [facility] ERT [id number] Univers 15:17:00 20:06:00 [facility] 2022-03-09 2022-03-09 Emergency X [facility] ERT [id number] Univers 15:17:00 20:06:00 RADHIKA [facility] 2022-03-09 2022-03-09 Telephone Gabriel [facility] 1.2.778.256 [id number] Univers 00:00:00 00:00:00 [facility] 350.1.13.10 i ty of [place] 4.2.[place].2.686 [place] [id number] [address] OFFICE [facility] 2022-03-08 2022-03-08 Patient Gabriel [facility] 1.2.840.114 [id number] Univers 00:00:00 00:00:00 Secure [facility] Amarilis IT SENIOR ANALYST 350.1.13.10 ity of REGIONAL 4.2.7.2.686 Jimbo as MATERNAL [id number] Med ical & CHILD [address] [place] [address] 2022-03-04 2022-03-04 Outpatient R AMARILIS BAHENA [facility] VICE PRESIDENT SAFETY [id number] Univers 12:18:00 18:14:00 AMARILIS BAHENA [facility] 2022-03-04 2022-03-04 Hospital Gabriel, [facility] 1.2.840.114 [id number] Univers 12:18:00 18:14:00 Encounter Amarilis [facility] 350.1.13.10 ity of [place] 4.2.7.2.686 [place] [facility] [id number] [address] ([facility]) 2022-03-04 2022-03-04 Outpatient R GABRIEL AMARILIS [facility] VICE PRESIDENT SAFETY [id number] Univers 12:18:00 18:14:00 AMARILIS BAHENA [facility] 2022-03-04 2022-03-04 [facility] V[facility] PRESIDENT SAFETY [id number] Univers 12:18:00 18:14:00 AMARILIS BAHENA [facility] 2022-03-04 2022-03-04 Surgery Gabriel [facility] 1.2.840.114 [id number] Univers 13:40:00 15:26:00 Amarilis SPECIALTY 350.1.13.10 ity of [facility] 4.2.7.2.686 [facility] AT [id number] [address] 2022-02-22 2022-02-22 Outpatient Roxana BAHENA AMARILIS [facility] [id number] Univers 13:30:00 13:30:00 AMARILIS BAHENA [facility] 2022-02-22 2022-02-22 Outpatient Roxana BAHENA AMARILIS [facility] [id number] Univers 11:00:00 12:00:18 AMARILIS BAHENA [facility] 2022-02-22 2022-02-22 Office [facility] 1.2.840.114 [id number] Univers 11:00:00 12:00:18 Visit Amarilis IT SENIOR ANALYST 350.1.13.10 i ty of REGIONAL 4.2.7.2.686 Jimbo as MATERNAL [id number] Med ical & CHILD 8 [facility] 2022-02-19 2022-02-19 Jeronimo CERNA 1.2.840.114 [id number] Univers 00:00:00 00:00:00 Only Unassigned, DAMEON 350.1.13.10 ity of [place] [facility] 4.2.7.2.686 Jimbo as [id number] [address] 2022-02-15 2022-02-15 Patient Gabriel [facility] 1.2.840.114 [id number] Univers 00:00:00 00:00:00 Secure Msg [facility] 350.1.13.10 ity of [place] 4.2.7.2.686 [place] [facility] [id number] [address] OFFICE BUILDING 2022-02-10 2022-02-10 Telephone [facility] 1.2.658.936 [id number] Univers 00:00:00 00:00:00 Amarilis IT SENIOR ANALYST 350.1.13.10 i ty of [place] [address]..2.686 Jimbo as MATERNAL [id number] [facility] CHILD [address] [place] [address] 2022-02-09 2022-02-09 Telephone [facility] 1.2.799.861 [id number] Univers 00:00:00 00:00:00 Amarilis IT SENIOR ANALYST 350.1.13.10 i ty of [place] [address]..2.686 Jimbo as MATERNAL [id number] [address] 2022-02-08 2022-02-08 Outpatient R AMARILIS BAHENA [facility] [id number] Univers 13:30:00 14:44:04 AMARILIS BAHENA [facility] 2022-02-08 2022-02-08 Office [facility] 1.2.840.114 [id number] Univers 13:30:00 14:44:04 Visit Amarilis IT SENIOR ANALYST 350.1.13.10 i ty of [place] [address]..2.686 Jimbo as MATERNAL [id number] [address] 2022-02-08 2022-02-08 Outpatient R AMARILIS BAHENA [facility] [id number] Univers 13:30:00 13:30:00 AMARILIS BAHENA [facility] 2022-02-08 2022-02-08 Orders Doctor ERYN 1.2.840.114 [id number] Univers 00:00:00 00:00:00 Only Unassigned, DAMEON 350.1.13.10 ity of [place] [facility] 4.2.7.2.686 Jimbo as [id number] [address] 2022-02-05 2022-02-05 Telephone [facility] 1.2.408.347 [id number] Univers 00:00:00 00:00:00 Amarilis Telensius 350.1.13.10 i ty of [place] 4.2.7.2.686 [place] [id number] [address] OFFICE BUILDING 2022-02-03 2022-02-03 Nurse ERYN Reyes 1.2.840.114 [id number] Univers 00:00:00 00:00:00 Triage Anthony XIAO 350.1.13.10 ity of HOSPITAL 4.2.7.2.686 Jimbo as [id number] [address] 2022-02-01 2022-02-01 Telephone [facility] 1.2.717.111 [id number] Univers 00:00:00 00:00:00 Amarilis Telensius 350.1.13.10 i ty of [place] 4.2.7.2.686 [place] [id number] [address] OFFICE BUILDING 2022-01-22 2022-01-22 Outpatient R AMARILIS BAHENA [facility] [id number] Univers 15:30:00 15:30:00 AMARILIS BAHENA itli [facility] 2022-01-18 2022-01-18 Telephone [facility] 1.2.981.223 [id number] Univers 00:00:00 00:00:00 [facility] 350.1.13.10 i ty of [place] 4.2.[place].2.686 [place] [id number] [address] OFFICE BUILDING 2021-11-06 2021-11-06 Outpatient R AMARILIS BAHENA [facility] [id number] Univers 11:30:00 11:30:00 AMARILIS BAHENA [facility] 2021-10-30 2021-10-30 Office Gabriel [facility] 1.2.840.114 [id number] Univers 16:30:00 17:00:00 Visit Amarilis AMES 350.1.13.10 i ty of [place] 4.2.7.2.686 [place] [id number] [address] OFFICE BUILDING 2021-10-30 2021-10-30 Outpatient R AMARILIS BAHENA [facility] [id number] Univers 16:30:00 16:30:00 AMARILIS BAHENA [facility] 2021-10-16 2021-10-16 [facility] [id number] Univers 13:00:00 13:00:00 JOSELYN logan [facility] 2021-10-16 2021-10-16 Outpatient [facility] [id number] Univers 00:00:00 00:00:00 JOSELYN logan [facility] 2021-10-16 2021-10-16 Outpatient [facility] [id number] Univers 00:00:00 00:00:00 JOSELYN logan [facility] 2021-09-29 2021-09-29 Patient Gabriel [facility] 1.2.840.114 [id number] Univers 00:00:00 00:00:00 Secure Msg Amarilis AMES 350.1.13.10 ity of [place] 4.2.7.2.686 [place] [id number] [address] OFFICE BUILDING 2021-09-28 2021-09-28 Telephone [facility] 1.2.840.114 [id number] Univers 00:00:00 00:00:00 Joselyn Schmidt WOMEN'S 350.1.13.10 it y of [place] 4.2.7.2.686 [place] [id number] [place] [address] [address] [place] 2021-09-24 2021-09-24 Telephone [facility] 1.2.840.114 [id number] Univers 00:00:00 00:00:00 Joselyn MCGOWANS 350.1.13.10 it y of [place] 4.2.7.2.686 [place] [id number] Med[place] 134 [facility] 2021-09-23 2021-09-23 Office Gabriel [facility] 1.2.840.114 [id number] Univers 13:07:45 14:12:32 Visit Amarilis DUTTA 350.1.13.10 i ty of [place] 4.2.7.2.686 [place] [id number] Med[place] 098 [facility] 2021-09-23 2021-09-23 Outpatient AMARILIS KEANE [facility] [id number] Univers 13:00:00 14:12:32 AMARILIS BAHENA [facility] 2021-09-23 2021-09-23 Outpatient R AMARILIS BAHENA [facility] [id number] Univers 13:00:00 14:12:32 AMARILIS BAHENA [facility] 2021-09-23 2021-09-23 Outpatient R AMARILIS BAHENA [facility] [id number] Univers 13:00:00 14:12:32 AMARILIS BAHENA [facility] 2021-09-23 2021-09-23 Outpatient R AMARILIS BAHENA [facility] [id number] Univers 13:00:00 14:12:32 AMARILIS BAHENA [facility] 2021-09-23 2021-09-23 Outpatient R AMARILIS BAHENA [facility] [id number] Univers 13:00:00 13:00:00 AMARILIS BAHENA [facility] 2021-09-22 2021-09-22 Outpatient R GEOVANY [facility] [id number] Univers 13:45:00 14:56:14 JOSELYN logan [facility] 2021-09-22 2021-09-22 Office [facility] 1.2.808.171 [id number] Univers 13:26:55 14:56:14 Visit Joselyn R WOMEN'S 350.1.13.10 it y of [place] 4.2.7.2.686 [place] [id number] [place] [address] [place] [address] 2021-09-22 2021-09-22 [facility] [id number] Univers 13:45:00 13:45:00 JOSELYN logan [facility] 2021-09-16 2021-09-16 Telephone [facility] 1.2.840.114 [id number] Univers 00:00:00 00:00:00 Joselyn MCGOWANS 350.1.13.10 it y of [place] 4.2.7.2.686 [place] [id number] [place] [address] [place] [address] 2021-09-15 2021-09-15 [facility] [id number] Univers 10:45:00 10:45:00 JOSELYN logan [facility] 2021-09-04 2021-09-04 [facility] [id number] Univers 11:00:00 11:00:00 JOSELYN logan [facility] 2021-09-04 2021-09-04 Telephone [facility] 1.2.840.114 [id number] Univers 00:00:00 00:00:00 Joselyn MCGOWANS 350.1.13.10 it y of [place] 4.2.7.2.686 [place] [id number] [place] [address] [place] [address] 2021-09-04 2021-09-04 Telephone [facility] 1.2.840.114 [id number] Univers 00:00:00 00:00:00 Joselyn MCGOWANS 350.1.13.10 it y of [place] 4.2.7.2.686 [place] [id number] [place] [address] [place] [address] 2021-09-02 2021-09-02 Telephone [facility] 1.2.840.114 [id number] Univers 00:00:00 00:00:00 Joselyn MCGOWANS 350.1.13.10 [facility] 4.2.7.2.686 Te desmond [place] GROUP [id number] [address] [place] 2021-08-14 2021-08-14 Outpatient Roxana ARMENTA [facility] [id number] Univers 10:45:00 10:45:00 JOSELYN logan [facility] 2021-07-04 2021-07-04 Outpatient Roxana DIAZ [facility] [id number] Univers 19:45:00 19:45:00 CHRISTIAN logan [facility] 2021-07-04 2021-07-04 Outpatient Roxana DIAZ [facility] [id number] Univers 19:45:00 19:45:00 CHRISTIAN logan [facility] 2021-07-04 2021-07-04 Outpatient Roxana DIAZ [facility] [id number] Univers 19:45:00 19:45:00 CHRISTIAN logan [facility] 2021-07-04 2021-07-04 Outpatient Roxana DIAZ [facility] [id number] Univers 19:45:00 19:45:00 CHRISTIAN logan [facility] 2021-05-07 2021-05-07 Outpatient Roxana ARMENTA [facility] [id number] [facility] 11:30:00 11:30:00 JOSELYN logan [facility] 2021-04-17 2021-04-17 Outpatient Roxana ARMENTA [facility] [id number] [facility] 11:30:00 11:30:00 JOSELYN logan [facility] 2021-04-10 2021-04-10 Outpatient Roxana ARMENTA [facility] [id number] Univers 11:30:00 11:30:00 JOSELYN logan [facility] 2021-03-24 2021-03-24 Outpatient Roxana ARMENTA [facility] [id number] [facility] 11:00:00 11:00:00 JOSELYN logan [facility] 2021-03-20 2021-03-20 Outpatient Roxana ARMENTA [facility] [id number] [facility] 14:00:00 14:00:00 JOSELYN logan [facility] 2021-02-26 2021-02-26 Outpatient Roxana GEOVANY [facility] [id number] [facility] 10:30:00 10:30:00 JOSELYN li [facility] 2021-02-24 2021-02-24 Outpatient Roxana GEOVANY [facility] [id number] [facility] 16:45:00 16:45:00 JOSELYN logan [facility] 2018-02-07 2018-02-07 [facility] [id number] [facility] 15:56:00 15:56:00 [facility] 2018-02-07 2018-02-07 [facility] [id number] [facility] 15:16:00 15:16:00 [facility] 2017-11-28 2017-11-28 [facility] [id number] [facility] 09:30:00 09:30:00 [facility] 2017-11-18 2017-11-18 Outpatient [facility] [id number] [facility] 10:50:00 10:50:00 [facility] 2017-11-15 2017-11-15 Outpatient [facility] [id number] [place] 09:26:00 09:26:00 [facility] 2007-08-28 2007-08-28 Emergency X DARLYN YANES [facility] ERT [id number] [facility] 09:39:00 13:28:00 DARLYN YANES 7 [facility] Results Test Description Test Time Test Comments Results Result Comments Source POCT SARS-COV-2 ANTIGEN (BINAX NOW) 2023-01-16 00:11:00 Test Item Value Reference Range Interpretation Comme nts POCT SARS-COV-2 ANTIGEN (test code = 74666-1) Not Detected Not Dete cted On board controls acceptable with C Line (test code = Yes 3574) Lab Interpretation (test code = 35032-7) Normal [facility] GLUCOSE (AUTOMATED)2023-01-16 00:06:01 Test Item Value Reference Range Interpretation Comments POCT GLU (test code = 0259208429) 369 mg/dL 70-110 H Lab Interpretation (test code = Abnormal 25689-9) [facility] URINALYSIS W SPECIFIC [id number] 23:57:00 Test Item Value Reference Range Interpretation Comments POCT U SP GRAV (test 1.010 mg/dl 1.005-1.025 code = 3255) POCT PH U (test code = 5 mg/dl 5-8 3254) POCT U LEUK EST (test neg Negative - code = 3263) Negative POCT U NIT (test code neg Negative - = 3262) Negative POCT U PROT (test code neg Negative - = 3259) Negative POCT U GLU (test code 1000mg Negative - = 3256) Negative POCT U KETONE (test neg Negative - code = 3258) Negative POCT U UROBILI (test normal 0.2-1 code = 3260) POCT U BILI (test code neg Negative - = 3261) Negative POCT U BLD (test code trace Negative - = 3257) Negative POCT U COLOR (test dark yellow code = 3266) POCT U APPEAR (test clear code = 3267) JULIANNE (test code = JULIANNE) accurate development and interpretation of all internal controls Lab Interpretation Normal (test code = 70448-5) [id number] 20:01:00 Test Item Value Reference Range Interpretation Comments CULTURE (BEAKER) (test No growth in 5 days code = 1095) BLOOD [id number] 20:01:00 Test Item Value Reference Range Interpretation Comments CULTURE (BEAKER) (test No growth in 5 days code = 1095) POCT-GLUCOSE [id number] 11:57:00 Test Item Value Reference Range Interpretation Comments POC-GLUCOSE METER 117 mg/dL 70-110 H TESTED AT [place] [address] ([facility]) ([facility] = [facility] 1538) [address] POCT-GLUCOSE [id number] 07:57:00 Test Item Value Reference Range Interpretation Comments POC-GLUCOSE METER 110 mg/dL 70-110 TESTED AT [place] [address] ([facility]) (test code = [facility] 1538) [address] POCT-GLUCOSE [id number] 21:11:00 Test Item Value Reference Range Interpretation Comments POC-GLUCOSE METER 100 mg/dL 70-110 TESTED AT [place] [address] ([facility]) (test code = [facility] 1536) [address] MR, SPINE, LUMBAR, WITHOUT [id number] 20:59:00FINAL REPORT MR, SPINE, LUMBAR, WITHOUT CONTRAST [...] MDReport Verified Date/Time: 03/02/2019 20:59:13 Reading Location: [facility] Radiology Reading Room POCT-GLUCOSE [id number] 18:37:00 Test Item Value Reference Range Interpretation Comments POC-GLUCOSE METER 130 mg/dL 70-110 H TESTED AT [facility] 6720 ([facility]) (test code = MORENITA Schmidt [facility] 5205) [address] POCT-GLUCOSE [id number] 12:03:00 Test Item Value Reference Range Interpretation Comments POC-GLUCOSE METER 105 mg/dL 70-110 TESTED AT [facility] 6720 ([facility]) (test code = MORENITA Schmidt [facility] 1538) [address] POCT-GLUCOSE [id number] 06:55:00 Test Item Value Reference Range Interpretation Comments POC-GLUCOSE METER 126 mg/dL 70-110 H TESTED AT [place] [address] ([facility]) (test code = MORENITA Schmidt [facility] 1538) [address] POCT-GLUCOSE [id number] 20:31:00 Test Item Value Reference Range Interpretation Comments POC-GLUCOSE METER 98 mg/dL 70-110 TESTED AT [place] [address] ([facility]) (test code = MORENITA Schmidt [facility] [address] 1538) CT, SPINE, LUMBAR, WO [id number] 19:49:00FINAL REPORT CT, SPINE, LUMBAR, WO CONTRAST INDICATION: bowel and bladder incont inent COMPARISON: None TECHNIQUE: Contiguous noncontrast axial images of the lumbar spine are obtained. Computer reformatted coronal and sagittal images are also provided. Axial images are available inboth bone and soft tissue algorithm. DOSE REDUCTION: [...] stenosis at L5-S1. Signed: JR Elaine, Francisco CABALLEROeport Verified Date/Time: 03/01/2019 19:49:57 Reading Location: [facility] C013V Neuro Reading Room POCT- GLUCOSE [id number] 16:35:00 Test Item Value Reference Range Interpretation Comments POC-GLUCOSE METER 172 mg/dL 70-110 H TESTED AT [place] [address] (BEAKER) (test code = [facility] 1538) [address] POCT-GLUCOSE [id number] 11:56:00 Test Item Value Reference Range Interpretation Comments POC-GLUCOSE METER 202 mg/dL 70-110 H TEST[facility] AT [place] [address] [facility] (test code = [facility] 1538) [address] POCT-GLUCOSE [id number] 07:34:00 Test Item Value Reference Range Interpretation Comments POC-GLUCOSE METER 135 mg/dL 70-110 H TESTED AT [place] [address] (BEAKER) (test code = [facility] 1538) [address] CALCIUM, [id number] 06:34:00 Test Item Value Reference Range Interpretation Comments CALCIUM IONIZED (BEAKER) (test 1.06 mmol/L 1.12-1.27 L code = 698) PH, BLOOD (BEAKER) (test code = 7.37 1810) [id number] 05:46:00 Test Item Value Reference Range Interpretation Comments MAGNESIUM (BEAKER) (test code = 2.1 mg/dL 1.6-2.6 627) BASIC METABOLIC [id number] 05:46:00 Test Item Value Reference Range Interpretation [...] PATIEN TS. CBC W/PLT COUNT & AUTO [id number] 05:29:00 Test Item Value Reference Range Interpretation [...] 417) IMMATURE GRANULOCYTES-RELATIVE 0 % 0-1 PERCENT (AKER) (test code = 2801) LACTIC ACID, [id number] 05:29:00 Test Item Value Reference Range Interpretation Comments LACTATE BLOOD VENOUS (2) ([facility]) 1.1 mmol/L 0.5-2.2 (test code = 2872) POCT-GLUCOSE [id number] 20:48:00 Test Item Value Reference Range Interpretation Comments POC-GLUCOSE METER 109 mg/dL 70-110 TESTED AT [place] [address] ([facility]) (test code = [facility] 1538) [address] POCT-GLUCOSE [id number] 16:53:00 Test Item Value Reference Range Interpretation Comments POC-GLUCOSE METER 117 mg/dL 70-110 H TESTED AT [place] [address] ([facility]) (test code = [facility] 1538) [address] POCT-GLUCOSE [id number] 11:55:00 Test Item Value Reference Range Interpretation Comments POC-GLUCOSE METER 173 mg/dL 70-110 H TESTED AT [place] [address] ([facility]) (test code = [facility] 1538) [address] POCT-GLUCOSE [id number] 08:46:00 Test Item Value Reference Range Interpretation Comments POC-GLUCOSE METER 120 mg/dL 70-110 H TESTED AT [place] [address] ([facility]) (test code = [facility] 1538) [address] HEMOGLOBIN [id number] 07:05:00 Test Item Value Reference Range Interpretation Comments HEMOGLOBIN A1C ([facility]) (test code = 6.9 % 4.3-6.1 H 368) T4, [id number] 06:32:00 Test Item Value Reference Range Interpretation Comments FREE T4 (BEAKER) (test code = 655) 1.00 ng/dL 0.70-1.48 TSH/FREE T4 IF [id number] 05:26:00 Test Item Value Reference Range Interpretation Comments THYROID STIMULATING HORMONE 5.10 uIU/mL 0.35-4.94 H (BEAKER) (test code = 772) VITAMIN B12 AND [id number] 05:20:00 Test Item Value Reference Range Interpretation Comments VITAMIN B12 (BEAKER) (test code = 1226 pg/mL 213-816 H 774) FOLATE (BEAKER) (test code = 362) 14.8 ng/mL >=7.0 BASIC METABOLIC [id number] 05:17:00 Test Item Value Reference Range Interpretation [...] NOT APPLICABLE FOR DIALYSIS PATIEN TS. CALCIUM, [id number] 05:14:00 Test Item Value Reference Range Interpretation Comments CALCIUM IONIZED (BEAKER) (test 0.93 mmol/L 1.12-1.27 L code = 698) PH, BLOOD (BEAKER) (test code = 7.49 1810) [id number] 04:59:00 Test Item Value Reference Range Interpretation Comments PHOSPHORUS (BEAKER) (test code = 4.2 mg/dL 2.3-4.7 604) [id number] 04:59:00 Test Item Value Reference Range Interpretation Comments MAGNESIUM (BEAKER) (test code = 2.0 mg/dL 1.6-2.6 627) LACTIC ACID, [id number] 04:55:00 Test Item Value Reference Range Interpretation Comments LACTATE BLOOD VENOUS (2) (BEAKER) 1.8 mmol/L 0.5-2.2 (test code = 2872) CBC W/PLT COUNT & AUTO [id number] 04:35:00 Test Item Value Reference Range Interpretation [...] LYMPHOCYTES ABSOLUTE COUNT 3.08 K/ L 1.18-3.74 (AKER) (test code = 414) MONOCYTES ABSOLUTE COUNT (BEAKER) 0.53 K/ L 0.24-0.36 H (test code = 415) EOSINOPHILS ABSOLUTE COUNT 0.22 K/ L 0.04-0.36 (AKER) (test code = 416) BASOPHILS ABSOLUTE COUNT (AKER) 0.03 K/ L 0.01-0.08 (test code = 417) IMMATURE GRANULOCYTES-RELATIVE 0 % 0-1 PERCENT ([facility]) (test code = 2801) POCT-GLUCOSE [id number] 21:40:00 Test Item Value Reference Range Interpretation Comments POC-GLUCOSE METER 133 mg/dL 70-110 H TESTED AT [place] [address] ([facility]) (test code = MORENITA Schmidt [facility] 1538) [address] LACTIC ACID, [id number] 19:18:00 Test Item Value Reference Range Interpretation Comments LACTATE BLOOD VENOUS (2) ([facility]) 3.6 mmol/L 0.5-2.2 H (test code = 2872) POCT-GLUCOSE [id number] 18:17:00 Test Item Value Reference Range Interpretation Comments POC-GLUCOSE METER 95 mg/dL 70-110 TESTED AT [place] [address] ([facility]) (test [facility] = [facility] [address] 1538) LACTIC ACID, [id number] 15:26:00 Test Item Value Reference Range Interpretation Comments LACTATE BLOOD VENOUS 1.7 mmol/L 0.5-2.2 Specime n slightly (2) ([facility]) (test hemolyzed code = 2872) [id number] 14:38:00 Test Item Value Reference Range Interpretation Comments PROCALCITONIN ([facility]) (test code 0.05 ng/mL <0.05 H = 3036) SEPSIS RISK (ng/mL)Low: 0.05-0.50Intermediate: 0.51-2.00High: >=2.01U/S, [id number] 14:19:00Reason for exam:->CYSTITISFINAL REPORT INDICATION:Urinary tract infection [...] not visualized.Patient is status post hysterectomy. Signed: Raya Smallwood Verified Date/Time: 02/27/2019 14:19:25 Reading Location: [address] Ultrasound Reading Room U/S, RENAL, LIMITED [...] not visualized.Patient is status post hysterectomy. Signed: Raya Smallwood Verified Date/Time: 02/27/2019 14:19:25 Reading Location: [address] Ultrasound Reading Room URINALYSIS W/ REFLEX URINE [id number] 12:20:00 Test Item Value Reference Range Interpretation [...] SOURCE(BEAKER) (test code = 2795) HEPATIC FUNCTION [id number] 12:11:00 Test Item Value Reference Range Interpretation [...] = 15 U/L 6-55 347) BASIC METABOLIC [id number] 12:11:00 Test Item Value Reference Range Interpretation [...] APPLICABLE FOR DIALYSIS PATIEN TS. LACTIC ACID, [id number] 12:09:00 Test Item Value Reference Range Interpretation Comments LACTATE BLOOD VENOUS 2.3 mmol/L 0.5-2.2 H Specime n slightly (2) (BEAKER) (test hemolyzed code = 3192) KETONE, [id number] 11:53:00 Test Item Value Reference Range Interpretation Comments KETONES, BLOOD (BEAKER) (test code 0.1 mmol/L <0.4 = 1103) CBC W/PLT COUNT & AUTO [id number] 11:53:00 Test Item Value Reference Range Interpretation [...] code = 2801) WOUND CULTURE + GRAM [id number] 18:38:00 Test Item Value Reference Range Interpretation Comments CULTURE (BEAKER) (test code 1+ Skin batsheva = 1095) GRAM STAIN RESULT (BEAKER) No WBCs (test code = 1123) GRAM STAIN RESULT (BEAKER) No organisms seen (test code = 70519) AFB CULTURE + [id number] 14:57:00 Test Item Value Reference Range Interpretation Comments CULTURE (BEAKER) (test No acid-fast bacilli code = 1095) isolated in 42 days AFB SMEAR (BEAKER) No acid fast bacilli (test code = 994) seen SURGICALLY OBTAINED CULTURE + GRAM [id number] 10:13:00 Test Item Value Reference Range Interpretation Comments CULTURE (BEAKER) (test No growth code = 1095) GRAM STAIN RESULT <1+ White blood cells (BEAKER) (test code = seen 1123) GRAM STAIN RESULT No organisms seen (BEAKER) (test code = 39996) MM, U/S, BREAST, UNILATERAL, [id number] 16:18:00Reason for Exam:->[id number] #[id number] - MM, U/S, BREAST, UNILATERAL, LEFTULTRASOUND OF [...] There is no sonographic evidence of malignancy. Shahbaz Diop M.D. pth/:12/08/2017 16:18:20 Supervisor Heat Treating: Phuong Pugh Lump Room Supervisor, [facility] Ultrasound BI-RADS: 2 Benign 97403 MM, DIGITAL MAMMO, DIAGNOSTIC, BILATERAL INCLUDING [id number] 16:16:00Reason for Exam:->Encounter for screening mammogram for malugnant neoplasm of breastMRN#: [id number] - MM, DIGITAL MAMMO, DIAGNOSTIC, BILATERAL INCLUDING [...] however, further workup with ultrasound is recommended. Shahbaz Diop M.D. pth/:12/08/2017 16:16:27 Supervisor Heat Treating: Ashely Chou RTJorge)(Miguel Angel), [facility] Mammogram BI-RADS: 2 Benign [id number] BLOOD [id number] 05:01:00 Test Item Value Reference Range Interpretation Comments CULTURE (BEAKER) (test No growth in 5 days code = 1095) BLOOD [id number] 23:00:00 Test Item Value Reference Range Interpretation Comments CULTURE (BEAKER) (test No growth in 5 days code = 1095) POCT-GLUCOSE [id number] 07:45:00 Test Item Value Reference Range Interpretation Comments POC-GLUCOSE METER 125 mg/dL 70-110 H TESTED AT [facility] 6720 (BEAKER) (test code = M[place] 1538) [address] CALCIUM, [id number] 06:18:00 Test Item Value Reference Range Interpretation Comments CALCIUM IONIZED (BEAKER) (test 1.10 mmol/L 1.12-1.27 L code = 698) PH, BLOOD (BEAKER) (test code = 7.36 1810) [id number] 06:10:00 Test Item Value Reference Range Interpretation Comments PHOSPHORUS (BEAKER) (test code = 4.3 mg/dL 2.3-4.7 604) [id number] 06:10:00 Test Item Value Reference Range Interpretation Comments MAGNESIUM (BEAKER) (test code = 1.7 mg/dL 1.6-2.6 627) BASIC METABOLIC [id number] 06:10:00 Test Item Value Reference Range Interpretation [...] PATIEN TS. CBC W/PLT COUNT & AUTO [id number] 05:28:00 Test Item Value Reference Range Interpretation [...] 417) IMMATURE GRANULOCYTES-RELATIVE 0 % 0-1 PERCENT ([facility]) (test code = 2801) POCT-GLUCOSE [id number] 21:40:00 Test Item Value Reference Range Interpretation Comments POC-GLUCOSE METER 138 mg/dL 70-110 H TESTED AT [place] [address] ([facility]) (test code = [facility] Roxana [facility] 1538) [address] POCT-GLUCOSE [id number] 18:56:00 Test Item Value Reference Range Interpretation Comments POC-GLUCOSE METER 98 mg/dL 70-110 TESTED AT [place] [address] ([facility]) (test code = [facility] [address] 1538) POCT-GLUCOSE [id number] 14:49:00 Test Item Value Reference Range Interpretation Comments POC-GLUCOSE METER 92 mg/dL 70-110 TESTED AT [place] [address] ([facility]) (test code = [facility] [address] 1538) VANCOMYCIN LEVEL, [id number] 11:12:00 Test Item Value Reference Range Interpretation Comments VANCOMYCIN TROUGH ([facility]) (test 16.1 ug/mL 10.0-20.0 code = 522) POCT-GLUCOSE [id number] 09:35:00 Test Item Value Reference Range Interpretation Comments POC-GLUCOSE METER 123 mg/dL 70-110 H TESTED AT [place] [address] ([facility]) (test code = [facility] 1538) [address] CBC W/PLT COUNT & AUTO [id number] 09:02:00 Test Item Value Reference Range Interpretation Comments WHITE BLOOD CELL COUNT ([facility]) 6.2 K/ L 3.5-10.5 (test code = 775) RED BLOOD CELL COUNT ([facility]) 3.72 M/ L 3.93-5.22 L (test code = 761) HEMOGLOBIN ([facility]) (test code = 11.5 GM/DL 11.2-15.7 410) HEMATOCRIT ([facility]) (test code = 36.5 % 34.1-44.9 411) MEAN CORPUSCULAR VOLUME ([facility]) 98.1 fL 79.4-94.8 H (test code = [...] (BEAKER) (test code = 2801) VITAMIN D, [id number] 07:00:00 Test Item Value Reference Range Interpretation Comments VITAMIN D 25-OH (BEAKER) (test 22.5 ng/mL 6.6-49.9 code = 2764) Effective 07/27/2017: Reference Range ChangeNew: 6.6-49.9 ng/mL Previous: 13.0- 47.8 ng/mLRecommendedVitamin D Target Range: 30.0-40.0 ng/[id number] 06:39:00 Test Item Value Reference Range Interpretation Comments PHOSPHORUS (BEAKER) (test code = 4.6 mg/dL 2.3-4.7 604) [id number] 06:39:00 Test Item Value Reference Range Interpretation Comments MAGNESIUM (BEAKER) (test code = 1.7 mg/dL 1.6-2.6 627) BASIC METABOLIC [id number] 06:39:00 Test Item Value Reference Range Interpretation [...] NOT APPLICABLE FOR DIALYSIS PATIEN TS. CALCIUM, [id number] 06:30:00 Test Item Value Reference Range Interpretation Comments CALCIUM IONIZED (BEAKER) (test 0.87 mmol/L 1.12-1.27 L code = 698) PH, BLOOD (BEAKER) (test code = 7.37 1810) POCT-GLUCOSE [id number] 20:32:00 Test Item Value Reference Range Interpretation Comments POC-GLUCOSE METER 173 mg/dL 70-110 H TESTED AT [facility] 6720 ([facility]) (test [facility] = [facility] 1538) [address] POCT-GLUCOSE [id number] 18:41:00 Test Item Value Reference Range Interpretation Comments POC-GLUCOSE METER 121 mg/dL 70-110 H TESTED AT [facility] 6720 [facility] (test code = [facility] 1538) [address] HEMOGLOBIN [id number] 14:36:00 Test Item Value Reference Range Interpretation Comments HEMOGLOBIN A1C (BEAKER) (test code = 6.6 % 4.3-6.1 H 368) POCT-GLUCOSE [id number] 12:36:00 Test Item Value Reference Range Interpretation Comments POC-GLUCOSE METER 139 mg/dL 70-110 H TESTED AT [facility] 6720 (BEAKER) (test code = MORENITA Schmidt [place] 1538) [address] POCT-GLUCOSE [id number] 08:34:00 Test Item Value Reference Range Interpretation Comments POC-GLUCOSE METER 125 mg/dL 70-110 H TESTED AT [facility] 67 (BEAKER) (test code = MORENITA Schmidt [place] 1538) [address] CBC W/PLT COUNT & AUTO [id number] 07:16:00 Test Item Value Reference Range Interpretation [...] (test code = 1351) TSH/FREE T4 IF [id number] 06:48:00 Test Item Value Reference Range Interpretation Comments THYROID STIMULATING HORMONE 4.13 uIU/mL 0.35-4.94 (BEAKER) (test code = 772) [id number] 06:25:00 Test Item Value Reference Range Interpretation Comments PHOSPHORUS (BEAKER) (test code = 3.9 mg/dL 2.3-4.7 604) [id number] 06:25:00 Test Item Value Reference Range Interpretation Comments MAGNESIUM (BEAKER) (test code = 1.8 mg/dL 1.6-2.6 627) BASIC METABOLIC [id number] 06:25:00 Test Item Value Reference Range Interpretation [...] NOT APPLICABLE FOR DIALYSIS PATIEN TS. LIPID [id number] 06:25:00 Test Item Value Reference Range Interpretation [...] Borderline 130-159 High 160-189 Very High >=190CALCIUM, [id number] 06:02:00 Test Item Value Reference Range Interpretation Comments CALCIUM IONIZED (BEAKER) (test 0.84 mmol/L 1.12-1.27 L code = 698) PH, BLOOD (BEAKER) (test code = 7.40 1810) POCT-GLUCOSE [id number] 23:04:00 Test Item Value Reference Range Interpretation Comments POC-GLUCOSE METER 92 mg/dL 70-110 TESTED AT [facility] 6720 (BEAKER) (test code = MORENITA [place] [id number] 3278) BASIC METABOLIC [id number] 16:03:00 Test Item Value Reference Range Interpretation [...] PATIEN TS. CBC W/PLT COUNT & AUTO [id number] 15:58:00 Test Item Value Reference Range Interpretation [...] (test code = 2801) RAD, CHEST, 2 [id number] 15:19:00Reason for exam:->cpShould this be performed at the bedside?->NoFINAL REPORT Chest two views compared to November 14, 2017 Discussion: Lungs clear. Heart size normal. No effusion or pneumothorax. There are right shoulder degenerative changes. Wid ened left AC joint may reflect previous surgery or trauma. Signed: Eryn [place] Verified Date/Time: 11/30/2017 15:19:59 Reading Location: [address] Consult Reading Room SINUS CULTURE + GRAM [id number] 08:42:00 Test Item Value Reference Interpretation Comments [...] No organisms (BEAKER) (test code = seen 913925) No Normal respiratory batsheva presentHEPATIC FUNCTION [id number] 14:45:00 Test Item Value Reference Range Interpretation [...] = 9 U/L 6-55 347) BASIC METABOLIC [id number] 14:45:00 Test Item Value Reference Range Interpretation [...] PATIEN TS. CBC W/PLT COUNT & AUTO [id number] 14:12:00 Test Item Value Reference Range Interpretation [...] (test code = 2801) RAD, CHEST, 2 [id number] 13:06:00Reason for Exam:->[id number] REPORT HISTORY : R05. Comparison: None Comment: Two views of the chest, PA and lateral, were obtained. The cardiac silhouette is within normal limits. There is no pleural effusion, pneumothorax or infiltrate. No lytic or blastic abnormalities. Fixation hardware is seen in the cervical spine. Multilevel degenerative disc changes of the thoracic spine are seen. Impression: Noacute cardiothoracic abnormalities. Signed: Kelly Chapin MDReport Verified Date/Time: 11/14/2017 13:06:08 Reading Location: [address] Radiology Reading Room CT ABDOMEN AND [...]
[2023-03-28] MEDS ORDERED: FAMOTIDINE 20 MG/2 ML VIAL IV ONE (11:43)
[2023-03-28] MEDS ORDERED: ONDANSETRON 4 MG/2 ML VIAL ONE (11:43)
[2023-03-28 11:46] LABS: Absolute Lymphocytes (CBC) 1.3 K/uL (0.7-4.9); Hematocrit 41.3 % (36.0-45.0); MCV 98.6 fL (80-100); MPV 7.6 fL (7.6-11.3); RBC Red Blood Cell Count 4.19 M/uL (3.86-4.86)
[2023-03-28 11:53] LABS: Albumin 3.2 g/dL (3.4-5.0); Bilirubin Direct 0.2 mg/dL (0-0.2); Bilirubin Indirect, Calculated 0.3 mg/dL (0.2-0.8); Bilirubin Total 0.5 mg/dL (0.2-1.0); Potassium 3.5 mEq/L (3.5-5.1); Protein, Total 7.7 g/dL (6.4-8.2)
--- NOTE | 2023-03-28 12:19 | RAD REPORT ---
EXAM DESCRIPTION: RAD - Chest Single View - 03/28/2023 11:59 am CLINICAL HISTORY: vomiting;Congestion;Dyspnea Chest pain. COMPARISON: Chest Single View dated 11/27/2021; Chest Single View dated 05/04/2020; Chest Single View dated 01/30/2020; Chest Pa And Lat (2 Views) dated 09/25/2018 FINDINGS: Portable technique limits examination quality. The interstitial lung markings are prominent bilaterally. The heart is upper limit normal in size. No displaced fractures.Small cervical hardware plate. IMPRESSION: Mild interstitial prominence could indicate viral infection.
[2023-03-28] MEDS ORDERED: ACETAMINOPHEN 500 MG TAB ONE (15:58)
--- NOTE | 2023-03-28 17:35 | EDPHYS ---
Physician Documentation [facility] Name: Lara Liu Age: 67 yrs Sex: Female : 1955 Arrival Date: 03/28/2023 Time: 11:00 Bed 2 Private MD: ED Physician Romero Olmos HPI: 03/28 17:34 This 67 yrs old Female presents to ER via Ambulatory with complaints of kdr Nausea/Vomiting/Diarrhea. 17:35 Patient presents to the ED today complaining of nausea, vomiting and diarrhea for the kdr last 3 days. She is also had a cough which has been painful. Last week she had surgery on her eye at [facility]. She otherwise has been in her usual state of health. She has no other specific or focal complaints. Patient is very disheveled and appears to be bedbound. She also was initially found to be covered in fecal material.. Onset: The symptoms/episode began/occurred gradually, 4 day(s) ago. Severity of symptoms: At their worst the symptoms were mild moderate just prior to arrival, incapacitating in the emergency department the symptoms are unchanged. The patient has not experienced similar symptoms in the past. The patient has been recently seen by a physician: Ocular surgery last week. Historical: - PMHx: 11:13 CHF; Diabetes - NIDDM; Hyperlipidemia; Hypertension; Hypothyroidism; Sleep Apnea; ss - PSHx: 11:13 Cholecystectomy; Gastric Bypass; hysterectomy; Neck sx; ss - Immunization history:: Adult Immunizations unknown. - Social history:: Smoking status: unknown. ROS: 17:35 Constitutional: Negative for fever, chills, and weight loss, Eyes: Negative for injury, kdr pain, redness, and discharge, Neck: Negative for injury, pain, and swelling, Cardiovascular: Negative for chest pain, palpitations, and edema, Respiratory: Negative for shortness of breath, cough, wheezing, and pleuritic chest pain, Back: Negative for injury and pain, : Negative for injury, bleeding, discharge, and swelling, Psych: Negative for depression, anxiety, suicide ideation, homicidal ideation, and hallucinations, Allergy/Immunology: Negative for hives, rash, and allergies, Endocrine: Negative for neck swelling, polydipsia, polyuria, polyphagia, and marked weight changes, Hematologic/Lymphatic: Negative for swollen nodes, abnormal bleeding, and unusual bruising. 17:35 Neuro: Positive for weakness, Negative for dizziness, gait disturbance, headache, hearing loss, numbness, seizure activity, speech changes, syncope, near syncope. Exam: 17:35 Constitutional: This is a well developed, well nourished patient who is awake, alert, kdr and in no acute distress. Head/Face: Normocephalic, atraumatic. Eyes: Pupils equal round and reactive to light, extra-ocular motions intact. Lids and lashes normal. Conjunctiva and sclera are non-icteric and not injected. Cornea within normal limits. Periorbital areas with no swelling, redness, or edema. Neck: Trachea midline, no thyromegaly or masses palpated, and no cervical lymphadenopathy. Supple, full range of motion without nuchal rigidity, or vertebral point tenderness. No Meningismus. Chest/axilla: Normal chest wall appearance and motion. Nontender with no deformity. No lesions are appreciated. Cardiovascular: Regular rate and rhythm with a normal S1 and S2. No gallops, murmurs, or rubs. Normal PMI, no JVD. No pulse deficits. Respiratory: Lungs have equal breath sounds bilaterally, clear to auscultation and percussion. No rales, rhonchi or wheezes noted. No increased work of breathing, no retractions or nasal flaring. Back: No spinal tenderness. No costovertebral tenderness. Full range of motion. Skin: Warm, dry with normal turgor. Normal color with no rashes, no lesions, and no evidence of cellulitis. MS/ Extremity: Pulses equal, no cyanosis. Neurovascular intact. Full, normal range of motion. Psych: Awake, alert, with orientation to person, place and time. Behavior, mood, and affect are within normal limits. 17:35 Abdomen/GI: Inspection: obese Bowel sounds: diminished, in all quadrants. Vital Signs: 11:06 BP 129 / 63; Pulse 81; Resp 16; Temp 98.3(O); Pulse Ox 98% on R/A; Weight 108.86 kg; ss Height 5 ft. 4 in. ; Pain 8/10; 11:30 BP 125 / 63; Pulse 96; Resp 18; Pulse Ox 98% ; ko1 12:52 BP 129 / 71; Pulse 76; Resp 15; Pulse Ox 100% on R/A; ko1 13:32 BP 101 / 83; Pulse 83; Resp 18; Pulse Ox 99% on R/A; ko1 14:55 BP 114 / 62; Pulse 81; Resp 18; Pulse Ox 97% on R/A; ko1 16:00 BP 108 / 70; Pulse 90; Resp 18; Pulse Ox 96% ; ko1 17:00 BP 112 / 53; Pulse 85; Resp 16; Pulse Ox 95% ; ko1 19:00 BP 116 / 61; Pulse 76; Resp 15; Temp 98.6; Pulse Ox 98% on R/A; Pain 0/10; pf1 20:00 BP 121 / 63; Pulse 72; Resp 15; Pulse Ox 100% on R/A; Pain 0/10; pf1 11:06 Body Mass Index 41.20 (108.86 kg, 162.56 cm) ss 11:06 Pain Scale: Adult ss 19:00 Pain Scale: Adult pf1 20:00 Pain Scale: Adult pf1 MDM: 11:12 Patient medically screened. [facility] 17:37 Data reviewed: vital signs, nurses notes, lab test result(s), radiologic studies. [facility] 03/28 11:14 Order name: Basic Metabolic Panel; Complete Time: 12:37 kdr 03/28 11:14 Order name: CBC with Diff; Complete Time: 12:37 [facility] 03/28 11:14 Order name: LFT's; Complete Time: 12:37 kdr 03/28 11:14 Order name: NT PRO-BNP; Complete Time: 12:37 kdr 03/28 11:14 Order name: Troponin HS; Complete Time: 12:37 [facility] 03/28 11:15 Order name: COVID-19 SARS RT PCR; Complete Time: 12:37 kdr 03/28 11:15 Order name: Flu; Complete Time: 12:37 kdr 03/28 16:48 Order name: UAM; Complete Time: 20:32 ko1 03/28 11:14 Order name: XRAY Chest (1 view); Complete Time: 12:37 kdr 03/28 11:14 Order name: EKG; Complete Time: 11:15 kdr 03/28 14:52 Order name: Social Service Consult EDMS 03/28 11:14 Order name: Cardiac monitoring; Complete Time: 11:15 [facility] 03/28 11:14 Order name: EKG - Nurse/Tech; Complete Time: 11:29 kdr 03/28 11:14 Order name: IV Saline Lock; Complete Time: kdr 03/28 11:14 Order name: Labs collected and sent; Complete Time: kdr 03/28 11:14 Order name: O2 Per Protocol; Complete Time: :15 kdr 03/28 11:14 Order name: O2 Sat Monitoring; Complete Time: 11:16 kdr 03/28 13:24 Order name: Misc. Order: System Planning Engineer Consult - STAT kdr Administered Medications: 11:37 Drug: Ondansetron IVP 4 mg Route: IVP; Site: right antecubital; ko1 11:37 Drug: Famotidine IVP 20 mg Route: IVP; Site: right antecubital; ko1 15:48 Drug: Acetaminophen PO 1000 mg Route: PO; ko1 Disposition Summary: 03/28/23 17:34 Hospitalization Ordered Hospitalization Status: Observation kdr Location: Telemetry/MedSurg (observation) kdr Condition: Fair kdr Problem: new kdr Symptoms: are unchanged kdr Bed/Room Type: Standard kdr Provider: Suze Viramontes(03/28/23 18:59) sb4 Room Assignment: 222(03/28/23 19:36) cg Diagnosis - Weakness kdr - SARS-associated coronavirus as the cause of diseases classified elsewhere kdr - Other viral infections of unspecified site kdr - Other fecal abnormalities - Incontinence kdr - Morbid obesity kdr Forms: - Medication Reconciliation Form kdr - SBAR form kdr Signatures: Dispatcher [employer] Romero Marquez MD MD kdr Beau Guzmán PA PA jmm Blanchard, Shelby, RN RN Malinda Garcia RN RN Allyn Abdalla RN RN cg Sera Mays RN RN ko1 Dianna Cordoba PAJagjit PANelC sb4 Corrections: (The following items were deleted from the chart) 18:59 17:34 Mikie James kdr sb4 19:36 17:34 kdr cg
--- NOTE | 2023-03-28 17:35 | ER ---
Nurse's Notes [facility] Name: Lara Liu Age: 67 yrs Sex: Female : 1955 Arrival Date: 03/28/2023 Time: 11:00 Bed 2 Private MD: Diagnosis: Weakness;SARS-associated coronavirus as the cause of diseases classified elsewhere;Other viral infections of unspecified site;Other fecal abnormalities-Incontinence;Morbid obesity Presentation: 03/28 11:06 Chief complaint: Patient states: N/V/D and painful cough x 3 days. Pt recently had eye ss surgery in [facility] last week. Coronavirus screen: Client denies travel out of the [place] in the last 14 days. Ebola Screen: Patient denies exposure to infectious person. Patient denies travel to an Ebola-affected area in the 21 days before illness onset. Initial Sepsis Screen: Does the patient meet any 2 criteria? No. Patient's initial sepsis screen is negative. Does the patient have a suspected source of infection? No. Patient's initial sepsis screen is negative. Risk Assessment: Do you want to hurt yourself or someone else? Patient reports no desire to harm self or others. Onset of symptoms was March 25, 2023. 11:06 Method Of Arrival: Ambulatory ss 11:06 Acuity: CRIS 3 ss Historical: - PMHx: 11:13 CHF; Diabetes - NIDDM; Hyperlipidemia; Hypertension; Hypothyroidism; Sleep Apnea; ss - PSHx: 11:13 Cholecystectomy; Gastric Bypass; hysterectomy; Neck sx; ss - Immunization history:: Adult Immunizations unknown. - Social history:: Smoking status: unknown. Screenin:30 [facility] ED Fall Risk Assessment (Adult) History of falling in the last 3 months, ko1 including since admission No falls in past 3 months (0 pts) Confusion or Disorientation No (0 pts) Intoxicated or Sedated No (0 pts) Impaired Gait Yes (1 pt) Mobility Assist Device Used Yes (1 pt) Altered Elimination Yes (1 pt) Score/Fall Risk Level 3 or more points = High Risk Oriented to surroundings, Maintained a safe environment, Educated pt \T\ family on fall prevention, incl call for assistance when getting out of bed, Assessed \T\ reinforced patient's understanding of fall precautions, Provided non-skid footwear, Hourly rounding (assess needs \T\ fall precautionary measures) done, Used ambulatory aids as needed (educated on \T\ assisted with), Used gait belt as appropriate Implemented a Fall Risk Plan of Care, Apply high fall risk patient identification: yellow non skid footwear/ fall signage, Remained w/in arm's length of patient and in sight while toileting, Offered frequent toileting (1:1 observation), Remained with patient while ambulating, Utilized family, sitter, or virtual climatology professor as indicated. 11:36 Abuse screen: Denies threats or abuse. Denies injuries from another. Nutritional ph screening: No deficits noted. Tuberculosis screening: No symptoms or risk factors identified. Assessment: 11:30 General: Appears in no apparent distress. uncomfortable, Behavior is cooperative, ko1 appropriate for age, anxious. Pain: Complains of pain in forehead. Neuro: No deficits noted. Cardiovascular: No deficits noted. Respiratory: No deficits noted. GI: Abdomen is obese. : patient has been incontinent and smells strongly of urine. EENT: No deficits noted. Derm: No deficits noted. Musculoskeletal: No deficits noted. 19:00 General: Appears in no apparent distress. comfortable, obese, well developed, Behavior pf1 is calm, cooperative, appropriate for age, quiet. 19:00 Pain: Denies pain. Neuro: No deficits noted. Level of Consciousness is awake, alert, pf1 obeys commands, Oriented to person, place, time, situation. Cardiovascular: No deficits noted. Capillary refill < 3 seconds Patient's skin is warm and dry. Respiratory: Airway is patent Respiratory effort is even, unlabored, Respiratory pattern is regular, symmetrical, Breath sounds are clear bilaterally. Respiratory: Reports shortness of breath cough that is since 2 days. GI: Abdomen is round non-distended, obese, Bowel sounds present X 4 quads. Abd is soft and non tender X 4 quads. Reports diarrhea, nausea, vomiting, since 2 days. : No deficits noted. No signs and/or symptoms were reported regarding the genitourinary system. EENT: No deficits noted. No signs and/or symptoms were reported regarding the EENT system. Derm: No deficits noted. No signs and/or symptoms reported regarding the dermatologic system. 20:45 General: attempted nurse report, nurse to call back. pf1 Vital Signs: 11:06 BP 129 / 63; Pulse 81; Resp 16; Temp 98.3(O); Pulse Ox 98% on R/A; Weight 108.86 kg; ss Height 5 ft. 4 in. ; Pain 8/10; 11:30 BP 125 / 63; Pulse 96; Resp 18; Pulse Ox 98% ; ko1 12:52 BP 129 / 71; Pulse 76; Resp 15; Pulse Ox 100% on R/A; ko1 13:32 BP 101 / 83; Pulse 83; Resp 18; Pulse Ox 99% on R/A; ko1 14:55 BP 114 / 62; Pulse 81; Resp 18; Pulse Ox 97% on R/A; ko1 16:00 BP 108 / 70; Pulse 90; Resp 18; Pulse Ox 96% ; ko1 17:00 BP 112 / 53; Pulse 85; Resp 16; Pulse Ox 95% ; ko1 19:00 BP 116 / 61; Pulse 76; Resp 15; Temp 98.6; Pulse Ox 98% on R/A; Pain 0/10; pf1 20:00 BP 121 / 63; Pulse 72; Resp 15; Pulse Ox 100% on R/A; Pain 0/10; pf1 11:06 Body Mass Index 41.20 (108.86 kg, 162.56 cm) ss 11:06 Pain Scale: Adult ss 19:00 Pain Scale: Adult pf1 20:00 Pain Scale: Adult pf1 ED Course: 11:03 Patient arrived in ED. bd 11:11 Beau Guzmán PA is PHCP. jmm 11:11 Romero Olmos MD is Attending Physician. [facility] 11:12 Triage completed. ss 11:13 Arm band placed on right wrist. ss 11:15 Sera Mays, LUZ ELENA is Primary Nurse. ko1 11:29 Basic Metabolic Panel Sent. ko1 11:29 CBC with Diff Sent. ko1 11:29 LFT's Sent. ko1 11:29 NT PRO-BNP Sent. ko1 11:29 Troponin HS Sent. ko1 11:30 No provider procedures requiring assistance completed. Inserted saline lock: 22 gauge ko1 in right antecubital area, using aseptic technique. Blood collected. Patient maintains SpO2 saturation greater than 95% on room air. 11:33 Flu Sent. ko1 11:33 COVID-19 SARS RT PCR Sent. ko1 11:36 Patient has correct armband on for positive identification. Placed in gown. Bed in low ph position. Call light in reach. Side rails up X2. Client placed on continuous cardiac and pulse oximetry monitoring. NIBP monitoring applied. 11:40 Door closed. Noise minimized. Lights dimmed. Warm blanket given. PO fluids given. ko1 11:41 COVID-19 SARS RT PCR Sent. ko1 11:41 Flu Sent. ko1 12:01 XRAY Chest (1 view) In Process Unspecified. EDMS 17:32 Mikie James MD is Hospitalizing Provider. kdr 17:55 UAM Sent. ko1 18:59 Suze Viramontes MD is Hospitalizing Provider. sb4 20:49 Patient admitted, IV remains in place. pf1 Administered Medications: 11:37 Drug: Ondansetron IVP 4 mg Route: IVP; Site: right antecubital; ko1 11:37 Drug: Famotidine IVP 20 mg Route: IVP; Site: right antecubital; ko1 15:48 Drug: Acetaminophen PO 1000 mg Route: PO; ko1 Medication: 11:36 VIS not applicable for this client. ph Outcome: 17:34 Decision to Hospitalize by Provider. kdr 21:12 Admitted to Med/surg accompanied by tech, room 222, with chart, Report called to pio Cain RN 21:12 Condition: stable 21:12 Discharge instructions given to patient, Instructed on the need for admit, Demonstrated understanding of instructions. 21:12 Patient left the ED. pio Signatures: Dispatcher [employer] EDMS Ashely Reid Kevin, MD MD kdr Mickail, Joel, PA PA jmm Blanchard, Shelby, RN RN Malinda Dawkins RN RN ph Gary Hernandez, RN RN jb4 Sera Mays RN RN ko1 Dianna Cordoba PA-C PADinorah Trotter, LUZ ELENA RN pf1 Corrections: (The following items were deleted from the chart) 14:55 11:30 BP 114 / 62; Pulse 82bpm; Resp 18bpm; Pulse Ox 98%; ko1 ko1
[2023-03-28 18:09] LABS: Specific Gravity > 1.030 (1.005-1.030); Urine Bacteria <20 /HPF (<20); Urine Bilirubin NEGATIVE (Negative); Urine Blood Negative (Negative); Urine Clarity Extremely Turbid (Clear); Urine Color Light-Yellow (Yellow); Urine Glucose 4+ (Over) (Negative); Urine Protein NEGATIVE (Negative); Urine RBC >50 /HPF (None Seen); Urine Urobilinogen Normal (Normal)
--- NOTE | 2023-03-28 18:37 | P.HP ---
Certification for Inpatient Patient admitted to: Observation With expected LOS: <2 Midnights Patient will require the following post-hospital care: None Practitioner: I am a practitioner with admitting privileges, knowledge of patient current condition, hospital course, and medical plan of care. Services: Services provided to patient in accordance with Admission requirements found in Title 42 Section 412.3 of the Code of Federal Regulations Patient History Date of Service: 03/28/23 Reason for admission: COVID, Weakness History of Present Illness: Ms. Liu is a 67 year old female with past medical history of diastolic CHF, non-insulin dependent type 2 diabetes, HTN, HLD, KWAKU, and hypothyroidism who presented to the emergency department via EMS with complaints of nausea, vomiting, diarrhea, and weakness x 3 days. She was found to be covid positive. No significant lab abnormalities. Chest xray demonstrating a viral process. She has not been hypoxic. Case management was consulted but could not get anything set up by the end of the day. Given her significant weakness, ED provider wishes to admit patient for observation. Allergies No Known Drug Allergies Allergy (Verified 10/01/15 13:23) Unknown No Known Allergies Allergy (Uncoded 01/04/16 21:00) Unknown Home medications list reviewed: Yes Home Medications: Atorvastatin Calcium [Lipitor*] 10 mg PO DAILY 03/29/19 Divalproex ER [Depakote *ER] 500 mg PO BEDTIME 03/29/19 Empagliflozin [Jardiance] 1 tab PO DAILY 03/29/19 Furosemide [Lasix*] 20 mg PO DAILY 03/29/19 Levothyroxine [Synthroid*] 2 tab PO [id number] 03/29/19 Multivitamin/Iron/Folic Acid [Centrum Women Tablet] 1 tab PO DAILY 03/29/19 Oxybutynin Chloride 2 tab PO DAILY 03/29/19 Trazodone [Desyrel*] 50 mg PO BEDTIME 03/29/19 Venlafaxine HCl [Venlafaxine HCl ER] 150 mg PO DAILY 03/29/19 Aspirin [Aspirin EC 81 MG] 81 mg PO DAILY #30 tablet. 05/06/20 Clopidogrel Bisulfate [Plavix*] 75 mg PO DAILY #30 tablet 05/06/20 Fluticasone Propionate [Flovent Diskus] 1 puff IH BID 05/06/20 Gabapentin 1 cap PO BID 05/06/20 Meclizine HCl 1 tab PO DAILY 05/06/20 Scopolamine 1 patch TD SEECOM PRN 05/06/20 Tramadol HCl [Ultram] 1 tab PO DAILY 05/06/20 Albuterol Neb [Proventil 0.083% Neb Soln] 2.5 mg NEB [id number] PRN #120 amp 11/29/21 Nebulizer [Aeroneb Go Nebulizer] 1 each QID #1 each 11/29/21 - Past Medical/Surgical History Diabetic: Yes -: HTN -: Hypothyroidism -: Depression with insomnia -: Obstructive sleep apnea -: PTSD -: Diabetes mellitus -: Morbid obesity -: GERD -: CHF, diastolic dysfunction -: Achilles tendon repair -: Cervical neck surgery -: Gastric bypass -: Hernia repair -: Cholecystectomy -: Hysterectomy Psychosocial/ Personal History: The patient lives by herself. She is a . She has 2 children. - Family History Father History Unknown: Yes Notes: adopted Mother History Unknown: Yes Notes: adopted - Social History Smoking Status: Never smoker Alcohol use: No CD- Drugs: No Caffeine use: Yes Place of Residence: Home Review of Systems General: Weakness Respiratory: Cough Gastrointestinal: Nausea, Vomiting, Diarrhea Physical Examination - Vital Signs Temperature: 98.3 F Blood Pressure: 112/53 Pulse: 85 Respirations: 16 Pulse Ox (%): 95 - Physical Exam General: Alert, In no apparent distress, Obese HEENT: Atraumatic, EOMI, Sclerae nonicteric Neck: Supple, 2+ carotid pulse no bruit, No LAD, Without JVD or thyroid abnormality Respiratory: Clear to auscultation bilaterally, Normal air movement Cardiovascular: Regular rate/rhythm, Normal S1 S2 Gastrointestinal: Normal bowel sounds, No tenderness Musculoskeletal: No tenderness Integumentary: No rashes Neurological: Normal speech, Normal affect - Studies Laboratory Data (last 24 hrs) 03/28/23 11:25: WBC 6.70, Hgb 13.4, Hct 41.3, Plt Count 269 03/28/23 11:25: Sodium 135 L, Potassium 3.5, BUN 19 H, Creatinine 0.97, Glucose 175 H, Total Bilirubin 0.5, AST 26, ALT 13, Alkaline Phosphatase 74 Microbiology Data (last 24 hrs): 03/28/23 11:30 Nasopharnyx Influenza Type A Antigen Screen - Final 03/28/23 11:30 Nasopharnyx Influenza Type B Antigen Screen - Final Assessment and Plan - Problems (Diagnosis) (1) COVID-19 Current Visit: Yes Status: Acute (2) CHF (congestive heart failure) Current Visit: Yes Status: Chronic Qualifiers: Heart failure type: diastolic Heart failure chronicity: chronic Qualified Code(s): I50.32 - Chronic diastolic (congestive) heart failure (3) Hypertension Current Visit: Yes Status: Chronic Qualifiers: Hypertension type: primary hypertension Qualified Code(s): I10 - Essential (primary) hypertension (4) Morbid obesity Current Visit: Yes Status: Chronic (5) Type 2 diabetes mellitus Current Visit: Yes Status: Chronic Qualifiers: Diabetes mellitus manager intermediate insulin use: without manager intermediate use Diabetes mellitus complication status: with hyperglycemia Qualified Code(s): E11.65 - Type 2 diabetes mellitus with hyperglycemia (6) Hypertension Current Visit: Yes Status: Chronic Qualifiers: Hypertension type: primary hypertension Qualified Code(s): I10 - Essential (primary) hypertension (7) Hypothyroidism Current Visit: Yes Status: Chronic Qualifiers: Hypothyroidism type: unspecified Qualified Code(s): E03.9 - Hypothyroidism, unspecified (8) Obstructive sleep apnea Current Visit: Yes Status: Chronic (9) Generalized weakness Current Visit: Yes Status: Acute - Plan Patient is admitted for for observation for weakness, nausea, vomiting, diarrhea secondary to COVID-19. Case management consulted, is arranging home health. Daily room air sats. Not requiring O2. CPAP at bedtime for KWAKU. Supportive measures with antidiarrheals, antitussives. Isolation precautions in place. Daily vitamin C and zinc. Physical therapy consulted. Monitor and replete electrolytes per protocol. Reconcile and continue home medications. Lovenox for VTE prophylaxis. Full code. Discharge Plan: Home Plan to discharge in: 24 Hours - Advance Directives Does patient have a Living Will: Yes Does patient have a Durable POA for Healthcare: Yes - Code Status/Comfort Care Code Status Assessed: Yes Code Status: Full Code Physician Review: Patient Assessed, Agree with Above Assessment and Plan Critical Care: No Time Spent Managing Pts Care (In Minutes): 50
[2023-03-28] MEDS ORDERED: IPRATROPIUM BROM 0.5MG/2.5ML NEB PRN (21:37)
[2023-03-28] MEDS ORDERED: NA CHLORIDE 0.9% 1,000 ML IV SCH (21:37)
[2023-03-28] MEDS ORDERED: ALBUTEROL 2.5 MG/3 ML NEB SOL NEB PRN (21:37)
[2023-03-28] MEDS ORDERED: ONDANSETRON 4 MG/2 ML VIAL IV PRN (21:37)
[2023-03-28] MEDS: INSULIN -REGULAR HUMAN 50 UNIT/0.5 ML ML SQ SCH (22:47)
[2023-03-28] MEDS: ACETAMINOPHEN 500 MG TAB PO PRN (23:11)
[2023-03-29 03:43] LABS: Absolute Lymphocytes (CBC) 1.7 K/uL (0.7-4.9); Hematocrit 37.7 % (36.0-45.0); Lymphocytes % 35.5 % (15.3-44.8); MCV 98.9 fL (80-100); MPV 7.9 fL (7.6-11.3); RBC Red Blood Cell Count 3.81 M/uL (3.86-4.86)
[2023-03-29] MEDS: ACETAMINOPHEN 500 MG TAB PO PRN ×4 (04:26→22:21)
[2023-03-29 04:27] LABS: Phosphorus 2.3 mg/dL (2.5-4.9); Thyroid Stimulating Hormone 1.33 uIU/mL (0.358-3.740)
[2023-03-29 04:33] LABS: Magnesium 2.5 mg/dL (1.6-2.4); Potassium 3.7 mEq/L (3.5-5.1)
[2023-03-29] MEDS: INSULIN -REGULAR HUMAN 50 UNIT/0.5 ML ML SQ SCH ×4 (07:30→22:21)
[2023-03-29] MEDS: POTASS/SODIUM PHOSPHATE 1 PKT POWD.PACK PO SCH ×3 (08:59→11:13)
[2023-03-29] MEDS ORDERED: POTASSIUM CL SA 10 MEQ TAB PO ONE (09:00)
[2023-03-29] MEDS: ZINC SULFATE 220 MG CAP PO SCH (09:00)
[2023-03-29] MEDS: ENOXAPARIN 40 MG/0.4 ML SQ SCH (09:00)
[2023-03-29] MEDS: ASCORBIC ACID 500 MG TABLET PO SCH (09:00)
[2023-03-29] MEDS ORDERED: POTASS/SODIUM PHOSPHATE 1 PKT POWD.PACK PO ONE (13:00)
[2023-03-29] MEDS ORDERED: ALBUTEROL 2.5 MG/3 ML NEB SOL NEB PRN (14:00)
--- NOTE | 2023-03-29 18:08 | P.PN ---
Date of Service: 03/29/23 Subjective Pt is doing well with no new complaints; she is weak and not able to ambulate because of the weakness; patient lives at home alone and she gets around with no cane. However, at this time she is not ambulatory. Physical therapy is working with her. She is not safe for discharge as she is a fall risk. She also gets hypoxic on ambulation. We did her up and ambulated her to the chair she dropped her sats to 88% on room air. She does not wear home oxygen. We will repeat chest x-ray. Anticipate discharge over the next 48 to 72 hours. 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 Current Visit: Yes Status: Acute (2) CHF (congestive heart failure) Current Visit: Yes Status: Chronic Qualifiers: Heart failure type: diastolic Heart failure chronicity: chronic Qualified Code(s): I50.32 - Chronic diastolic (congestive) heart failure (3) Hypertension Current Visit: Yes Status: Chronic Qualifiers: Hypertension type: primary hypertension Qualified Code(s): I10 - Essential (primary) hypertension (4) Morbid obesity Current Visit: Yes Status: Chronic (5) Type 2 diabetes mellitus Current Visit: Yes Status: Chronic Qualifiers: Diabetes mellitus terminal make up operator insulin use: without custodial use Diabetes mellitus complication status: with hyperglycemia Qualified Code(s): E11.65 - Type 2 diabetes mellitus with hyperglycemia (6) Hypertension Current Visit: Yes Status: Chronic Qualifiers: Hypertension type: primary hypertension Qualified Code(s): I10 - Essential (primary) hypertension (7) Hypothyroidism Current Visit: Yes Status: Chronic Qualifiers: Hypothyroidism type: unspecified Qualified Code(s): E03.9 - Hypothyroidism, unspecified (8) Obstructive sleep apnea Current Visit: Yes Status: Chronic (9) Generalized weakness Current Visit: Yes Status: Acute - Plan Plan: 1. Continue with steroids 2. Culture pending 3. CXR stable 4. O2 per protocol 5. PT eval 6. Continue with nebs as needed 7. O2 per protocol 8. Repeat labs 9. GI and DVT prophylaxis
[2023-03-30 00:10] VITALS: BMI 42.7
[2023-03-30] MEDS: ACETAMINOPHEN 500 MG TAB PO PRN ×4 (04:32→22:48)
[2023-03-30 06:06] LABS: Absolute Lymphocytes (CBC) 2.3 K/uL (0.7-4.9); Hematocrit 34.8 % (36.0-45.0); Lymphocytes % 46.6 % (15.3-44.8); MPV 7.8 fL (7.6-11.3); RBC Red Blood Cell Count 3.52 M/uL (3.86-4.86)
[2023-03-30 06:20] LABS: AST/SGOT 19 U/L (15-37); Albumin 2.5 g/dL (3.4-5.0); Alkaline Phosphatase 61 U/L (45-117); BUN Blood Urea Nitrogen 23 mg/dL (7-18); Bicarbonate 28 mEq/L (21-32); Bilirubin Total 0.2 mg/dL (0.2-1.0); Glomerular Filtration Rate 95 ml/min (=/>90); Glucose Level 133 mg/dL (74-106); Magnesium 2.2 mg/dL (1.6-2.4); Potassium 3.7 mEq/L (3.5-5.1); Protein, Total 6.1 g/dL (6.4-8.2); Sodium Level 139 mEq/L (136-145)
[2023-03-30 06:28] LABS: ALT/SGPT < 10 U/L (13-56)
--- NOTE | 2023-03-30 07:26 | RAD REPORT ---
EXAM DESCRIPTION: [place] Single View03/30/2023 5:25 am CLINICAL HISTORY: Chest pain COMPARISON: March 28, 2023 FINDINGS: The lungs appear clear of acute infiltrate. The heart is normal size IMPRESSION: No acute abnormalities displayed
[2023-03-30] MEDS: INSULIN -REGULAR HUMAN 50 UNIT/0.5 ML ML SQ SCH ×4 (07:30→21:21)
--- NOTE | 2023-03-30 08:24 | EKG ---
Test Date: 2023-03-28 Test Time: 11:29:10 Capacity Planning Manager: JOHN PAUL MEASUREMENT RESULTS: Intervals: Rate: 75 WI: QRSD: 134 QT: 404 QTc: 451 Rayne: P: 45 WI: QRS: -41 T: 1 INTERPRETIVE STATEMENTS: Undetermined rhythm Left axis deviation Left bundle branch block Abnormal ECG Compared to ECG 11/27/2021 14:28:25 Left-axis deviation now present Sinus rhythm no longer present Electronically Signed On 03-30-23 08:18:31 CDT by Jj Sanchez
[2023-03-30] MEDS: ENOXAPARIN 40 MG/0.4 ML SQ SCH (08:40)
[2023-03-30] MEDS: ZINC SULFATE 220 MG CAP PO SCH (08:40)
[2023-03-30] MEDS: ASCORBIC ACID 500 MG TABLET PO SCH (08:40)
[2023-03-30] MEDS ORDERED: POTASSIUM CL SA 10 MEQ TAB PO ONE (09:00)
[2023-03-30] MEDS: dexAMETHasone 4 MG/ML VIAL IV SCH (17:24)
[2023-03-30] MEDS: HOME MED 1 EA UNK (Prednisolone Acetate/Pf [Prednisolone Acet 1% Eye Drop] 5 ML Drops.Susp OPTH SCH (21:00)
[2023-03-30] MEDS ORDERED: HOME MED 1 EA UNK (Acyclovir [Acyclovir] 800 MG Tablet) PO SCH (21:00)
[2023-03-30] MEDS ORDERED: KETOROLAC OPTHALMIC 5 ML BOT OPTH SCH (21:00)
[2023-03-30] MEDS ORDERED: HOME MED 1 EA UNK (Divalproex Sodium [Divalproex Sodium Er] 500 MG Tab.Er.24h) PO SCH (21:00)
[2023-03-30] MEDS: KETOROLAC OPTHALMIC OPTH SCH (21:00)
[2023-03-30] MEDS: DIVALPROEX ER 250 MG TAB PO SCH (21:18)
[2023-03-30] MEDS: ACYCLOVIR 400 MG TABLET PO SCH (21:19)
[2023-03-30] MEDS: FUROSEMIDE 20 MG TABLET PO SCH (21:20)
[2023-03-30] MEDS: TRAZODONE 50 MG TABLET PO SCH (21:20)
[2023-03-30] MEDS: GABAPENTIN 300 MG CAP PO SCH (21:20)
[2023-03-30] MEDS: carvediloL 6.25 MG TAB PO SCH (21:20)
[2023-03-31] MEDS: dexAMETHasone 4 MG/ML VIAL IV SCH ×5 (00:59→23:41)
[2023-03-31 03:43] LABS: Potassium 4.5 mEq/L (3.5-5.1)
[2023-03-31] MEDS: LEVOTHYROXINE SOD 0.112 MG TAB PO SCH (05:30)
[2023-03-31] MEDS: LEVOTHYROXINE SOD 0.025 MG TAB PO SCH (05:30)
[2023-03-31] MEDS: INSULIN -REGULAR HUMAN 50 UNIT/0.5 ML ML SQ SCH ×4 (07:30→20:12)
[2023-03-31] MEDS: HOME MED 1 EA UNK (Empagliflozin [Jardiance] 25 MG Tablet) PO SCH (08:13)
[2023-03-31] MEDS: KETOROLAC OPTHALMIC OPTH SCH ×2 (08:13→20:12)
[2023-03-31] MEDS: HOME MED 1 EA UNK (Prednisolone Acetate/Pf [Prednisolone Acet 1% Eye Drop] 5 ML Drops.Susp OPTH SCH ×2 (08:14→20:13)
[2023-03-31] MEDS: CLOPIDOGREL 75 MG TABLET PO SCH (08:38)
[2023-03-31] MEDS: ACYCLOVIR 400 MG TABLET PO SCH ×3 (08:38→20:13)
[2023-03-31] MEDS: FUROSEMIDE 20 MG TABLET PO SCH ×2 (08:38→20:12)
[2023-03-31] MEDS: DIVALPROEX ER 250 MG TAB PO SCH ×2 (08:38→20:12)
[2023-03-31] MEDS: ATORVASTATIN 10 MG TAB PO SCH (08:39)
[2023-03-31] MEDS: CELECOXIB 100 MG CAPSULE PO SCH (08:39)
[2023-03-31] MEDS: glipiZIDE 5 MG TAB PO SCH (08:39)
[2023-03-31] MEDS: ZINC SULFATE 220 MG CAP PO SCH (08:39)
[2023-03-31] MEDS: carvediloL 6.25 MG TAB PO SCH ×2 (08:39→20:11)
[2023-03-31] MEDS: FENOFIBRATE 48 MG TAB PO SCH (08:39)
[2023-03-31] MEDS: GABAPENTIN 300 MG CAP PO SCH ×2 (08:39→20:12)
[2023-03-31] MEDS: ASCORBIC ACID 500 MG TABLET PO SCH (08:39)
[2023-03-31] MEDS: POTASSIUM CL SA 10 MEQ TAB PO SCH (08:40)
[2023-03-31] MEDS: ENOXAPARIN 40 MG/0.4 ML SQ SCH (08:40)
--- NOTE | 2023-03-31 08:44 | P.PN ---
Date of Service: 03/30/23 Subjective Patient continues with generalized weakness. She needed max assist to ambulate 2 to 3 feet to her chair. Patient is at a high risk of falling if we discharge her home. She does not appear to be safe for discharge home as she lives alone and has no assistance. She also gets really tachypneic. I believe she may have some myopathy related to her COVID 19. Her oxygenation is improving. Continue on O2 per protocol. 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 Current Visit: Yes Status: Acute (2) CHF (congestive heart failure) Current Visit: Yes Status: Chronic Qualifiers: Heart failure type: diastolic Heart failure chronicity: chronic Qualified Code(s): I50.32 - Chronic diastolic (congestive) heart failure (3) Hypertension Current Visit: Yes Status: Chronic Qualifiers: Hypertension type: primary hypertension Qualified Code(s): I10 - Essential (primary) hypertension (4) Morbid obesity Current Visit: Yes Status: Chronic (5) Type 2 diabetes mellitus Current Visit: Yes Status: Chronic Qualifiers: Diabetes mellitus superintendent marine oil terminal insulin use: without superintendent marine oil terminal use Diabetes mellitus complication status: with hyperglycemia Qualified Code(s): E11.65 - Type 2 diabetes mellitus with hyperglycemia (6) Hypertension Current Visit: Yes Status: Chronic Qualifiers: Hypertension type: primary hypertension Qualified Code(s): I10 - Essential (primary) hypertension (7) Hypothyroidism Current Visit: Yes Status: Chronic Qualifiers: Hypothyroidism type: unspecified Qualified Code(s): E03.9 - Hypothyroidism, unspecified (8) Obstructive sleep apnea Current Visit: Yes Status: Chronic (9) Generalized weakness Current Visit: Yes Status: Acute - Plan Plan: 1. Continue with IV steroids 2. Awaiting culture results 3. Repeat CXR 4. O2 per protocol 5. PT eval 6. Continue with nebs as needed 7. O2 per protocol 8. Repeat labs 9. GI and DVT prophylaxis
[2023-03-31] MEDS ORDERED: HOME MED 1 EA UNK (Celecoxib [Celebrex] 200 MG Capsule) PO SCH (09:00)
[2023-03-31] MEDS ORDERED: HOME MED 1 EA UNK (Levothyroxine Sodium [Synthroid] 137 MCG Tablet) PO SCH (09:00)
[2023-03-31] MEDS ORDERED: FENOFIBRATE MICRONIZED PO SCH (09:00)
[2023-03-31] MEDS: ACETAMINOPHEN 500 MG TAB PO PRN ×2 (13:01→22:10)
[2023-03-31] MEDS: TRAZODONE 50 MG TABLET PO SCH (20:12)
--- NOTE | 2023-04-01 02:53 | P.PN ---
Date of Service: 03/31/23 Subjective Patient was able to get out of bed and ambulate a few feet. Still with generalized weakness. Ambulating very little. Desats on ambulation. 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 Current Visit: Yes Status: Acute (2) CHF (congestive heart failure) Current Visit: Yes Status: Chronic Qualifiers: Heart failure type: diastolic Heart failure chronicity: chronic Qualified Code(s): I50.32 - Chronic diastolic (congestive) heart failure (3) Hypertension Current Visit: Yes Status: Chronic Qualifiers: Hypertension type: primary hypertension Qualified Code(s): I10 - Essential (primary) hypertension (4) Morbid obesity Current Visit: Yes Status: Chronic (5) Type 2 diabetes mellitus Current Visit: Yes Status: Chronic Qualifiers: Diabetes mellitus skilled nursing insulin use: without skilled nursing use Diabetes mellitus complication status: with hyperglycemia Qualified Code(s): E11.65 - Type 2 diabetes mellitus with hyperglycemia (6) Hypertension Current Visit: Yes Status: Chronic Qualifiers: Hypertension type: primary hypertension Qualified Code(s): I10 - Essential (primary) hypertension (7) Hypothyroidism Current Visit: Yes Status: Chronic Qualifiers: Hypothyroidism type: unspecified Qualified Code(s): E03.9 - Hypothyroidism, unspecified (8) Obstructive sleep apnea Current Visit: Yes Status: Chronic (9) Generalized weakness Current Visit: Yes Status: Acute - Plan Plan: 1. Continue with IV steroids 2. Cultures are negative. Patient with a viral myopathy resulting in generalized weakness. 3. Repeat chest x-ray 4. O2 per protocol 5. PT eval appreciated 6. Continue with nebs as needed 7. O2 per protocol 8. Repeat labs 9. GI and DVT prophylaxis
[2023-04-01] MEDS: LEVOTHYROXINE SOD 0.025 MG TAB PO SCH (06:01)
[2023-04-01] MEDS: LEVOTHYROXINE SOD 0.112 MG TAB PO SCH (06:01)
[2023-04-01] MEDS: dexAMETHasone 4 MG/ML VIAL IV SCH ×4 (06:02→23:55)
[2023-04-01] MEDS: BENZONATATE 100 MG CAP PO PRN ×2 (06:02→21:08)
[2023-04-01] MEDS: ACETAMINOPHEN 500 MG TAB PO PRN ×2 (08:37→21:09)
[2023-04-01] MEDS: ACYCLOVIR 400 MG TABLET PO SCH ×3 (08:37→21:08)
[2023-04-01] MEDS: FENOFIBRATE 48 MG TAB PO SCH (08:37)
[2023-04-01] MEDS: ATORVASTATIN 10 MG TAB PO SCH (08:37)
[2023-04-01] MEDS: POTASSIUM CL SA 10 MEQ TAB PO SCH (08:39)
[2023-04-01] MEDS: glipiZIDE 5 MG TAB PO SCH (08:40)
[2023-04-01] MEDS: GABAPENTIN 300 MG CAP PO SCH ×2 (08:40→21:08)
[2023-04-01] MEDS: CELECOXIB 100 MG CAPSULE PO SCH (08:40)
[2023-04-01] MEDS: CLOPIDOGREL 75 MG TABLET PO SCH (08:41)
[2023-04-01] MEDS: ZINC SULFATE 220 MG CAP PO SCH (08:41)
[2023-04-01] MEDS: FUROSEMIDE 20 MG TABLET PO SCH ×2 (08:41→21:08)
[2023-04-01] MEDS: ASCORBIC ACID 500 MG TABLET PO SCH (08:42)
[2023-04-01] MEDS: carvediloL 6.25 MG TAB PO SCH ×2 (08:42→21:09)
[2023-04-01] MEDS: ENOXAPARIN 40 MG/0.4 ML SQ SCH (08:43)
[2023-04-01] MEDS: INSULIN -REGULAR HUMAN 50 UNIT/0.5 ML ML SQ SCH ×4 (08:44→21:09)
[2023-04-01] MEDS ORDERED: DRISDOL (VITAMIN D=ERGOCALCIFEROL) 50000 UNIT CAP PO SCH (09:00)
[2023-04-01] MEDS: HOME MED 1 EA UNK (Empagliflozin [Jardiance] 25 MG Tablet) PO SCH (09:00)
[2023-04-01] MEDS: DIVALPROEX ER 250 MG TAB PO SCH ×2 (09:39→21:08)
[2023-04-01] MEDS: KETOROLAC OPTHALMIC OPTH SCH ×2 (09:40→21:12)
[2023-04-01] MEDS: HOME MED 1 EA UNK (Prednisolone Acetate/Pf [Prednisolone Acet 1% Eye Drop] 5 ML Drops.Susp OPTH SCH ×2 (09:40→21:12)
[2023-04-01] MEDS: TRAZODONE 50 MG TABLET PO SCH (21:08)
[2023-04-02] MEDS: ACETAMINOPHEN 500 MG TAB PO PRN ×2 (03:07→20:05)
[2023-04-02 06:21] LABS: Absolute Lymphocytes (CBC) 2.7 K/uL (0.7-4.9); Hematocrit 36.7 % (36.0-45.0); Lymphocytes % 27.1 % (15.3-44.8); MCV 97.5 fL (80-100); MPV 7.9 fL (7.6-11.3); RBC Red Blood Cell Count 3.76 M/uL (3.86-4.86)
[2023-04-02] MEDS: LEVOTHYROXINE SOD 0.112 MG TAB PO SCH (06:28)
[2023-04-02] MEDS: BENZONATATE 100 MG CAP PO PRN ×2 (06:29→20:04)
[2023-04-02] MEDS: dexAMETHasone 4 MG/ML VIAL IV SCH ×3 (06:29→17:14)
[2023-04-02] MEDS: LEVOTHYROXINE SOD 0.025 MG TAB PO SCH (06:29)
[2023-04-02 06:43] LABS: Magnesium 2.1 mg/dL (1.6-2.4)
[2023-04-02] MEDS: INSULIN -REGULAR HUMAN 50 UNIT/0.5 ML ML SQ SCH ×4 (08:02→20:29)
[2023-04-02] MEDS: ENOXAPARIN 40 MG/0.4 ML SQ SCH (08:02)
[2023-04-02] MEDS: DIVALPROEX ER 250 MG TAB PO SCH ×2 (08:03→20:05)
[2023-04-02] MEDS: ACYCLOVIR 400 MG TABLET PO SCH ×3 (08:05→20:04)
[2023-04-02] MEDS: GABAPENTIN 300 MG CAP PO SCH ×2 (08:05→20:04)
[2023-04-02] MEDS: ASCORBIC ACID 500 MG TABLET PO SCH (08:06)
[2023-04-02] MEDS: ZINC SULFATE 220 MG CAP PO SCH (08:06)
[2023-04-02] MEDS: ATORVASTATIN 10 MG TAB PO SCH (08:06)
[2023-04-02] MEDS: glipiZIDE 5 MG TAB PO SCH (08:07)
[2023-04-02] MEDS: POTASSIUM CL SA 10 MEQ TAB PO SCH (08:08)
[2023-04-02] MEDS: FUROSEMIDE 20 MG TABLET PO SCH ×2 (08:08→20:04)
[2023-04-02] MEDS: carvediloL 6.25 MG TAB PO SCH ×2 (08:08→20:05)
[2023-04-02] MEDS: CLOPIDOGREL 75 MG TABLET PO SCH (08:09)
[2023-04-02] MEDS: CELECOXIB 100 MG CAPSULE PO SCH (08:09)
[2023-04-02] MEDS: FENOFIBRATE 48 MG TAB PO SCH (08:10)
[2023-04-02] MEDS: KETOROLAC OPTHALMIC OPTH SCH ×2 (08:11→20:08)
[2023-04-02] MEDS: HOME MED 1 EA UNK (Prednisolone Acetate/Pf [Prednisolone Acet 1% Eye Drop] 5 ML Drops.Susp OPTH SCH ×2 (08:11→20:08)
[2023-04-02] MEDS: HOME MED 1 EA UNK (Empagliflozin [Jardiance] 25 MG Tablet) PO SCH (08:12)
--- NOTE | 2023-04-02 09:01 | RAD REPORT ---
EXAM DESCRIPTION: RAD - Chest Single View - 04/02/2023 6:01 am CLINICAL HISTORY: pneumonia Chest pain. COMPARISON: Chest Single View dated 03/30/2023; Chest Single View dated 03/28/2023; Chest Single View dated 11/27/2021; Chest Single View dated 05/04/2020 FINDINGS: Portable technique limits examination quality. The lungs are grossly clear. The heart is upper limit of normal in size. No displaced fractures.Small hardware plate lower cervical spine. IMPRESSION: No acute intrathoracic process suspected.
[2023-04-02] MEDS: TRAZODONE 50 MG TABLET PO SCH (20:05)
[2023-04-03] MEDS: dexAMETHasone 4 MG/ML VIAL IV SCH ×3 (00:06→11:57)
[2023-04-03] MEDS: BENZONATATE 100 MG CAP PO PRN ×2 (06:14→21:20)
[2023-04-03] MEDS: LEVOTHYROXINE SOD 0.025 MG TAB PO SCH (06:14)
[2023-04-03] MEDS: LEVOTHYROXINE SOD 0.112 MG TAB PO SCH (06:14)
[2023-04-03] MEDS: ENOXAPARIN 40 MG/0.4 ML SQ SCH (08:44)
[2023-04-03] MEDS: INSULIN -REGULAR HUMAN 50 UNIT/0.5 ML ML SQ SCH ×4 (08:44→21:19)
[2023-04-03] MEDS: POTASSIUM CL SA 10 MEQ TAB PO SCH (08:45)
[2023-04-03] MEDS: ZINC SULFATE 220 MG CAP PO SCH (08:45)
[2023-04-03] MEDS: glipiZIDE 5 MG TAB PO SCH (08:45)
[2023-04-03] MEDS: carvediloL 6.25 MG TAB PO SCH ×2 (08:45→21:20)
[2023-04-03] MEDS: FUROSEMIDE 20 MG TABLET PO SCH ×2 (08:46→21:20)
[2023-04-03] MEDS: ATORVASTATIN 10 MG TAB PO SCH (08:46)
[2023-04-03] MEDS: ACYCLOVIR 400 MG TABLET PO SCH ×3 (08:49→21:19)
[2023-04-03] MEDS: CELECOXIB 100 MG CAPSULE PO SCH (08:50)
[2023-04-03] MEDS: CLOPIDOGREL 75 MG TABLET PO SCH (08:50)
[2023-04-03] MEDS: GABAPENTIN 300 MG CAP PO SCH ×2 (08:50→21:20)
[2023-04-03] MEDS: ASCORBIC ACID 500 MG TABLET PO SCH (08:50)
[2023-04-03] MEDS: DIVALPROEX ER 250 MG TAB PO SCH ×2 (08:51→21:19)
[2023-04-03] MEDS: FENOFIBRATE 48 MG TAB PO SCH (08:52)
[2023-04-03] MEDS: KETOROLAC OPTHALMIC OPTH SCH ×2 (08:53→21:23)
[2023-04-03] MEDS: HOME MED 1 EA UNK (Prednisolone Acetate/Pf [Prednisolone Acet 1% Eye Drop] 5 ML Drops.Susp OPTH SCH ×2 (08:53→21:22)
[2023-04-03] MEDS: HOME MED 1 EA UNK (Empagliflozin [Jardiance] 25 MG Tablet) PO SCH (09:00)
[2023-04-03] MEDS: ACETAMINOPHEN 500 MG TAB PO PRN ×2 (09:18→21:20)
--- NOTE | 2023-04-03 14:40 | P.PN ---
Date of Service: 04/02/23 Subjective Patient is clinically doing well. Patient's symptoms are improving. She started to participate with physical therapy. Currently on room air oxygen. Her coughing is better. 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 Current Visit: Yes Status: Acute (2) CHF (congestive heart failure) Current Visit: Yes Status: Chronic Qualifiers: Heart failure type: diastolic Heart failure chronicity: chronic Qualified Code(s): I50.32 - Chronic diastolic (congestive) heart failure (3) Hypertension Current Visit: Yes Status: Chronic Qualifiers: Hypertension type: primary hypertension Qualified Code(s): I10 - Essential (primary) hypertension (4) Morbid obesity Current Visit: Yes Status: Chronic (5) Type 2 diabetes mellitus Current Visit: Yes Status: Chronic 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 Continue with IV steroids changed to oral steroids in the morning 2. Cultures are negative. Patient with a viral myopathy resulting in generalized weakness. Continue with physical therapy 3. Infiltrate has improved 4. O2 per protocol 5. PT eval appreciated 6. Continue with nebs as needed 7. O2 per protocol 8. Repeat labs 9. GI and DVT prophylaxis
--- NOTE | 2023-04-03 14:42 | P.PN ---
Date of Service: 04/01/23 Subjective Continues to improve. Patient remains with persistent cough and generalized weakness. She is not really ambulating well. Physical therapy had to help her get out of bed with max assistance. We will continue with supportive care at this time and we are trying to work on inpatient rehabilitation. 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 Current Visit: Yes Status: Acute (2) CHF (congestive heart failure) Current Visit: Yes Status: Chronic Qualifiers: Heart failure type: diastolic Heart failure chronicity: chronic Qualified Code(s): I50.32 - Chronic diastolic (congestive) heart failure (3) Hypertension Current Visit: Yes Status: Chronic Qualifiers: Hypertension type: primary hypertension Qualified Code(s): I10 - Essential (primary) hypertension (4) Morbid obesity Current Visit: Yes Status: Chronic (5) Type 2 diabetes mellitus Current Visit: Yes Status: Chronic 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: 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 Steroids 2. Cultures are negative. 3. Infiltrate has improved 4. O2 per protocol 5. PT eval appreciated 6. Continue with nebs as needed 7. O2 per protocol 8. Repeat labs 9. GI and DVT prophylaxis
--- NOTE | 2023-04-03 14:46 | P.PN ---
Date of Service: 04/03/23 Subjective Patient continues to have generalized weakness. We went ahead and filled out paperwork for her to have short-term disability. We will continue with building patient's strength and trying to get patient to inpatient rehab. 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 Current Visit: Yes Status: Acute (2) CHF (congestive heart failure) Current Visit: Yes Status: Chronic Qualifiers: Heart failure type: diastolic Heart failure chronicity: chronic Qualified Code(s): I50.32 - Chronic diastolic (congestive) heart failure (3) Hypertension Current Visit: Yes Status: Chronic Qualifiers: Hypertension type: primary hypertension Qualified Code(s): I10 - Essential (primary) hypertension (4) Morbid obesity Current Visit: Yes Status: Chronic (5) Type 2 diabetes mellitus Current Visit: Yes Status: Chronic Qualifiers: 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: without equipment 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 Continue with oral steroids. 2. Culture pending 3. CXR stable 4. O2 per protocol 5. PT eval 6. Continue with nebs as needed; add inhaler therapy 7. Continue with cough medication 8. Repeat labs 9. GI and DVT prophylaxis
[2023-04-03] MEDS: predniSONE 20 MG TAB PO SCH (21:20)
[2023-04-03] MEDS: TRAZODONE 50 MG TABLET PO SCH (21:20)
[2023-04-04] MEDS: GUAIFENESIN/CODEINE 5ML UCUP PO PRN ×3 (00:32→23:52)
--- NOTE | 2023-04-04 02:41 | P.PN ---
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 She wants case management to talk to her first thing Tuesday morning so they can talk to the insurance or human resources and get approval for inpatient rehab. 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 Current Visit: Yes Status: Acute (2) CHF (congestive heart failure) Current Visit: Yes Status: Chronic Qualifiers: Heart failure type: diastolic Heart failure chronicity: chronic Qualified Code(s): I50.32 - Chronic diastolic (congestive) heart failure (3) Hypertension Current Visit: Yes Status: Chronic Qualifiers: Hypertension type: primary hypertension Qualified Code(s): I10 - Essential (primary) hypertension (4) Morbid obesity Current Visit: Yes Status: Chronic (5) Type 2 diabetes mellitus Current Visit: Yes Status: Chronic Qualifiers: 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 Continue with oral steroids. 2. Culture pending 3. CXR stable 4. O2 per protocol 5. PT eval appreciated-walking 40 ft 6. Continue with nebs as needed; add inhaler therapy 7. Continue with cough medication 8. Repeat labs 9. GI and DVT prophylaxis
[2023-04-04] MEDS: LEVOTHYROXINE SOD 0.025 MG TAB PO SCH (06:00)
[2023-04-04] MEDS: LEVOTHYROXINE SOD 0.112 MG TAB PO SCH (06:00)
[2023-04-04] MEDS: BENZONATATE 100 MG CAP PO PRN ×3 (06:00→22:52)
[2023-04-04 06:09] LABS: Absolute Lymphocytes (CBC) 2.9 K/uL (0.7-4.9); Hematocrit 37.3 % (36.0-45.0); Lymphocytes % 27.5 % (15.3-44.8); MCV 98.1 fL (80-100); MPV 7.7 fL (7.6-11.3)
[2023-04-04 06:33] LABS: Magnesium 2.2 mg/dL (1.6-2.4); Potassium 4.3 mEq/L (3.5-5.1)
[2023-04-04] MEDS: INSULIN -REGULAR HUMAN 50 UNIT/0.5 ML ML SQ SCH ×4 (08:59→20:14)
[2023-04-04] MEDS: HOME MED 1 EA UNK (Empagliflozin [Jardiance] 25 MG Tablet) PO SCH (09:00)
[2023-04-04] MEDS: ENOXAPARIN 40 MG/0.4 ML SQ SCH (09:00)
[2023-04-04] MEDS: ZINC SULFATE 220 MG CAP PO SCH (09:01)
[2023-04-04] MEDS: carvediloL 6.25 MG TAB PO SCH ×2 (09:01→20:19)
[2023-04-04] MEDS: ATORVASTATIN 10 MG TAB PO SCH (09:01)
[2023-04-04] MEDS: GABAPENTIN 300 MG CAP PO SCH ×2 (09:01→20:19)
[2023-04-04] MEDS: predniSONE 20 MG TAB PO SCH ×2 (09:02→20:16)
[2023-04-04] MEDS: CLOPIDOGREL 75 MG TABLET PO SCH (09:02)
[2023-04-04] MEDS: ASCORBIC ACID 500 MG TABLET PO SCH (09:02)
[2023-04-04] MEDS: FUROSEMIDE 20 MG TABLET PO SCH ×2 (09:02→20:19)
[2023-04-04] MEDS: POTASSIUM CL SA 10 MEQ TAB PO SCH (09:02)
[2023-04-04] MEDS: glipiZIDE 5 MG TAB PO SCH (09:02)
[2023-04-04] MEDS: ACYCLOVIR 400 MG TABLET PO SCH ×3 (09:03→20:16)
[2023-04-04] MEDS: CELECOXIB 100 MG CAPSULE PO SCH (09:03)
[2023-04-04] MEDS: DIVALPROEX ER 250 MG TAB PO SCH ×2 (09:04→20:20)
[2023-04-04] MEDS: HOME MED 1 EA UNK (Prednisolone Acetate/Pf [Prednisolone Acet 1% Eye Drop] 5 ML Drops.Susp OPTH SCH ×2 (09:05→20:14)
[2023-04-04] MEDS: KETOROLAC OPTHALMIC OPTH SCH ×2 (09:06→20:14)
[2023-04-04] MEDS: FENOFIBRATE 48 MG TAB PO SCH (09:12)
[2023-04-04 10:16] LABS: Smudge Cells FEW
[2023-04-04 10:17] LABS: Blood Morphology Comment NOT SEEN (NOT SEEN); Platelet Estimate ADEQ; Platelets, Giant 1+
[2023-04-04] MEDS ORDERED: MELATONIN 5 MG TABLET PO PRN (10:50)
[2023-04-04] MEDS: TRAZODONE 50 MG TABLET PO SCH (20:16)
[2023-04-05 03:57] LABS: Phosphorus 4.2 mg/dL (2.5-4.9)
[2023-04-05 03:58] LABS: Magnesium 2.2 mg/dL (1.6-2.4); Potassium 4.7 mEq/L (3.5-5.1)
[2023-04-05] MEDS: LEVOTHYROXINE SOD 0.112 MG TAB PO SCH (05:45)
[2023-04-05] MEDS: LEVOTHYROXINE SOD 0.025 MG TAB PO SCH (05:45)
[2023-04-05] MEDS: BENZONATATE 100 MG CAP PO PRN ×2 (06:31→13:53)
[2023-04-05] MEDS: ENOXAPARIN 40 MG/0.4 ML SQ SCH (08:26)
[2023-04-05] MEDS: INSULIN -REGULAR HUMAN 50 UNIT/0.5 ML ML SQ SCH ×4 (08:26→21:03)
[2023-04-05] MEDS: POTASSIUM CL SA 10 MEQ TAB PO SCH (08:27)
[2023-04-05] MEDS: CLOPIDOGREL 75 MG TABLET PO SCH (08:27)
[2023-04-05] MEDS: ACYCLOVIR 400 MG TABLET PO SCH ×3 (08:27→21:02)
[2023-04-05] MEDS: ZINC SULFATE 220 MG CAP PO SCH (08:28)
[2023-04-05] MEDS: CELECOXIB 100 MG CAPSULE PO SCH (08:28)
[2023-04-05] MEDS: glipiZIDE 5 MG TAB PO SCH (08:29)
[2023-04-05] MEDS: ASCORBIC ACID 500 MG TABLET PO SCH (08:29)
[2023-04-05] MEDS: DIVALPROEX ER 250 MG TAB PO SCH ×2 (08:29→21:01)
[2023-04-05] MEDS: GABAPENTIN 300 MG CAP PO SCH ×2 (08:29→21:01)
[2023-04-05] MEDS: predniSONE 20 MG TAB PO SCH ×2 (08:29→21:02)
[2023-04-05] MEDS: ATORVASTATIN 10 MG TAB PO SCH (08:30)
[2023-04-05] MEDS: FUROSEMIDE 20 MG TABLET PO SCH ×2 (08:30→21:03)
[2023-04-05] MEDS: FENOFIBRATE 48 MG TAB PO SCH (08:31)
[2023-04-05] MEDS: carvediloL 6.25 MG TAB PO SCH ×2 (08:56→21:00)
[2023-04-05] MEDS: HOME MED 1 EA UNK (Empagliflozin [Jardiance] 25 MG Tablet) PO SCH (08:56)
[2023-04-05] MEDS: KETOROLAC OPTHALMIC OPTH SCH ×2 (09:00→21:00)
[2023-04-05] MEDS: HOME MED 1 EA UNK (Prednisolone Acetate/Pf [Prednisolone Acet 1% Eye Drop] 5 ML Drops.Susp OPTH SCH ×2 (09:00→21:00)
[2023-04-05] MEDS: GUAIFENESIN/CODEINE 5ML UCUP PO PRN (11:58)
[2023-04-05] MEDS: ACETAMINOPHEN 500 MG TAB PO PRN (16:49)
--- NOTE | 2023-04-05 17:48 | P.PN ---
Subjective Date of Service: 04/05/23 Chief Complaint: COVID, Weakness No acute events overnight. Her only concern this morning is generalized weakness. She states that she is currently working with her insurance to get approved for inpatient rehab. Per CM, there is a schedule [id number] between Dr. Viramontes and the insurance later today. Review of Systems 10-point ROS is otherwise unremarkable General: Weakness (generalized) Physical Examination - Vital Signs Temperature: 97.6 F Blood Pressure: 102/52 Pulse: 69 Respirations: 16 Pulse Ox (%): 95 - Physical Exam General: Alert, In no apparent distress, Oriented x3 HEENT: Atraumatic, Sclerae nonicteric Neck: JVD not distended Respiratory: Diminished, Rhonchi/gurgles (faint, scattered) Cardiovascular: No edema, Regular rate/rhythm, Normal S1 S2, No gallops, No rubs, No murmurs Gastrointestinal: Normal bowel sounds, Soft and benign, Non-distended, No tenderness, No rebound, No guarding Musculoskeletal: No clubbing Integumentary: No rashes Neurological: Normal speech, Normal affect Assessment And Plan - Plan # Generalized Weakness suspect due to COVID-19 Infection - Evaluation thus far: - CRP = 65.9 - Procalcitonin = 0.26 - Chest x-ray (03/28) = "mild interstitial prominence could indicate viral infection." - Chest x-ray (03/30) = "no acute abnormalities displayed." - Chest x-ray (04/02) = "no acute intrathoracic process suspected." - Management plan: - Pulmonary Medicine consulted - recommendations appreciated - Pending inpatient rehab - [id number] scheduled between insurance physician and Dr. 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
[2023-04-05] MEDS: TRAZODONE 50 MG TABLET PO SCH (21:02)
[2023-04-06 01:15] LABS: Specific Gravity 1.018 (1.005-1.030); Urine Bacteria 20-50 /HPF (<20); Urine Bilirubin NEGATIVE (Negative); Urine Blood Negative (Negative); Urine Clarity Turbid (Clear); Urine Color Light-Yellow (Yellow); Urine Glucose 1+ (Negative); Urine Protein NEGATIVE (Negative); Urine RBC None Seen /HPF (None Seen); Urine Urobilinogen Normal (Normal); Urine pH 5.5 (5.0-7.0)
[2023-04-06] MEDS: BENZONATATE 100 MG CAP PO PRN ×2 (02:38→22:04)
[2023-04-06] MEDS: ACETAMINOPHEN 500 MG TAB PO PRN (02:38)
[2023-04-06 04:04] LABS: Potassium 4.4 mEq/L (3.5-5.1)
[2023-04-06] MEDS: LEVOTHYROXINE SOD 0.025 MG TAB PO SCH (05:52)
[2023-04-06] MEDS: LEVOTHYROXINE SOD 0.112 MG TAB PO SCH (05:52)
[2023-04-06] MEDS: INSULIN -REGULAR HUMAN 50 UNIT/0.5 ML ML SQ SCH ×4 (07:30→21:49)
[2023-04-06] MEDS: HOME MED 1 EA UNK (Prednisolone Acetate/Pf [Prednisolone Acet 1% Eye Drop] 5 ML Drops.Susp OPTH SCH ×2 (09:00→21:50)
[2023-04-06] MEDS: FENOFIBRATE 48 MG TAB PO SCH (09:00)
[2023-04-06] MEDS: KETOROLAC OPTHALMIC OPTH SCH ×2 (09:00→21:00)
[2023-04-06] MEDS: HOME MED 1 EA UNK (Empagliflozin [Jardiance] 25 MG Tablet) PO SCH (09:00)
[2023-04-06] MEDS: GABAPENTIN 300 MG CAP PO SCH ×2 (09:43→21:45)
[2023-04-06] MEDS: ACYCLOVIR 400 MG TABLET PO SCH ×3 (09:43→21:43)
[2023-04-06] MEDS: ZINC SULFATE 220 MG CAP PO SCH (09:43)
[2023-04-06] MEDS: ASCORBIC ACID 500 MG TABLET PO SCH (09:43)
[2023-04-06] MEDS: carvediloL 6.25 MG TAB PO SCH ×2 (09:43→21:44)
[2023-04-06] MEDS: ATORVASTATIN 10 MG TAB PO SCH (09:43)
[2023-04-06] MEDS: DIVALPROEX ER 250 MG TAB PO SCH ×2 (09:44→21:45)
[2023-04-06] MEDS: predniSONE 20 MG TAB PO SCH ×2 (09:44→21:45)
[2023-04-06] MEDS: glipiZIDE 5 MG TAB PO SCH (09:44)
[2023-04-06] MEDS: CELECOXIB 100 MG CAPSULE PO SCH (09:44)
[2023-04-06] MEDS: FUROSEMIDE 20 MG TABLET PO SCH ×2 (09:44→21:45)
[2023-04-06] MEDS: CLOPIDOGREL 75 MG TABLET PO SCH (09:45)
[2023-04-06] MEDS: POTASSIUM CL SA 10 MEQ TAB PO SCH (09:45)
[2023-04-06] MEDS: ENOXAPARIN 40 MG/0.4 ML SQ SCH (09:46)
--- NOTE | 2023-04-06 12:27 | P.CNS ---
Date of Consult: 04/06/23 Chief Complaint: COVID, Weakness History of Present Illness: Patient is 67 years of age and with cough shortness of breath fever occurred just after her cataract infection she had positive for coronavirus does have a history of asthma complaining of shortness of breath Allergies No Known Drug Allergies Allergy (Verified 10/01/15 13:23) Unknown No Known Allergies Allergy (Uncoded 01/04/16 21:00) Unknown Home Medications: Acyclovir 1,000 mg PO TID 03/30/23 Atorvastatin Calcium 1 tab PO DAILY 03/30/23 Celecoxib [Celebrex] 1 tab PO DAILY 03/30/23 Clopidogrel Bisulfate [Plavix*] 1 tab PO DAILY 03/30/23 Divalproex Sodium [Divalproex Sodium ER] 2 tab PO BID 03/30/23 Empagliflozin [Jardiance] 1 tab PO DAILY 03/30/23 Ergocalciferol (Vitamin D2) [Vitamin D 50,000 Unit Cap] 1 tab PO FR@0900 03/30/23 Fenofibrate,Micronized [Fenofibrate] 1 tab PO DAILY 03/30/23 Furosemide 1 tab PO BID 03/30/23 Gabapentin 1 tab PO BID 03/30/23 Ketorolac Opth [Acular 0.5% Opth Drops*] 1 drop OPTH BID 03/30/23 Levothyroxine Sodium [Synthroid] 1 tab PO DAILY 03/30/23 Potassium Oral Tab [Klor-Con 10 mEq Tab*] 20 meq PO DAILY 03/30/23 Prednisolone Acetate/Pf [Prednisolone Acet 1% Eye Drop] 1 drop OPTH BID 03/30/23 Trazodone [Desyrel*] 1 tab PO BEDTIME 03/30/23 carvediloL [Coreg*] 1 tab PO BID 03/30/23 glipiZIDE [Glipizide] 1 tab PO DAILY 03/30/23 - Past Medical/Surgical History Diabetic: Yes -: HTN -: Hypothyroidism -: Depression with insomnia -: Obstructive sleep apnea -: PTSD -: Diabetes mellitus -: Morbid obesity -: GERD -: CHF, diastolic dysfunction -: Achilles tendon repair -: Cervical neck surgery -: Gastric bypass -: Hernia repair -: Cholecystectomy -: Hysterectomy Psychosocial/ Personal History: The patient lives by herself. She is a . She has 2 children. - Family History Father History Unknown: Yes Notes: adopted Mother History Unknown: Yes Notes: adopted - Social History Smoking Status: Unknown if ever smoked Alcohol use: No CD- Drugs: No Caffeine use: Yes Place of Residence: Home Review of Systems 10-point ROS is otherwise unremarkable General: Weakness Respiratory: Cough, Shortness of Breath Physical Examination Temp Pulse Resp BP Pulse Ox 96.9 F 60 16 100/74 95 04/06/23 08:00 04/06/23 09:44 04/06/23 08:00 04/06/23 09:44 04/06/23 08:00 General: Alert, Oriented x3 Respiratory: Clear to auscultation bilaterally Cardiovascular: No edema, Normal pulses Gastrointestinal: Normal bowel sounds, Soft and benign Musculoskeletal: No clubbing, No swelling - Problems (1) COVID-19 Current Visit: Yes Status: Acute Plan: It is 67 years of age with a history of asthma has been sick for about a week positive for COVID she is having more shortness of breath fever chills improving his vital signs are all stable oxygenation satisfactory labs unremarkable patient is on steroid and has a history of obstructive sleep apnea stable for discharge
--- NOTE | 2023-04-06 17:51 | P.PN ---
Subjective Date of Service: 04/06/23 Chief Complaint: COVID, Weakness No acute events overnight. She reports generalized weakness is unchanged. Inpatient rehab was denied by insurance. CM spoke with her regarding SNF and she is considering this. Appreciate CM assistance. Review of Systems 10-point ROS is otherwise unremarkable General: Weakness (generalized) Physical Examination - Vital Signs Temperature: 97 F Blood Pressure: 114/60 Pulse: 71 Respirations: 18 Pulse Ox (%): 94 Assessment And Plan - Plan - Physical Exam General: Alert, In no apparent distress, Oriented x3 HEENT: Atraumatic, Sclerae nonicteric Neck: JVD not distended Respiratory: Diminished, Rhonchi/gurgles (faint, scattered) Cardiovascular: No edema, Regular rate/rhythm, No murmurs Gastrointestinal: Normal bowel sounds, Soft, Non-distended, No tenderness Musculoskeletal: No clubbing Integumentary: No rashes Neurological: Normal speech, Normal affect # Generalized Weakness suspect due to COVID-19 Infection - Evaluation thus far: - CRP = 65.9 - Procalcitonin = 0.26 - Chest x-ray (03/28) = "mild interstitial prominence could indicate viral infection." - Chest x-ray (03/30) = "no acute abnormalities displayed." - Chest x-ray (04/02) = "no acute intrathoracic process suspected." - Management plan: - Pulmonary Medicine consulted - recommendations appreciated - Inpatient rehab denied by insurance - appreciate CM assistance with SNF placement - Consulted Respiratory Therapy - Continue prednisone - Supplemental oxygen to maintain SpO2 > 92% - Encouraged incentive spirometry - Isolation precautions # Hyperglycemia in 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
[2023-04-06] MEDS: TRAZODONE 50 MG TABLET PO SCH (21:44)
[2023-04-06] MEDS: GUAIFENESIN/CODEINE 5ML UCUP PO PRN (22:04)
[2023-04-07] MEDS: ACETAMINOPHEN 500 MG TAB PO PRN (03:03)
[2023-04-07] MEDS: LEVOTHYROXINE SOD 0.112 MG TAB PO SCH (06:13)
[2023-04-07] MEDS: LEVOTHYROXINE SOD 0.025 MG TAB PO SCH (06:13)
[2023-04-07] MEDS: INSULIN -REGULAR HUMAN 50 UNIT/0.5 ML ML SQ SCH ×2 (07:30→12:08)
[2023-04-07 08:42] VITALS: BP 101/72; TEMP 98.4
[2023-04-07] MEDS: ENOXAPARIN 40 MG/0.4 ML SQ SCH (08:50)
[2023-04-07] MEDS: ASCORBIC ACID 500 MG TABLET PO SCH (08:52)
[2023-04-07] MEDS: predniSONE 20 MG TAB PO SCH (08:52)
[2023-04-07] MEDS: ATORVASTATIN 10 MG TAB PO SCH (08:52)
[2023-04-07] MEDS: CELECOXIB 100 MG CAPSULE PO SCH (08:52)
[2023-04-07] MEDS: ACYCLOVIR 400 MG TABLET PO SCH ×2 (08:52→14:43)
[2023-04-07] MEDS: GABAPENTIN 300 MG CAP PO SCH (08:52)
[2023-04-07] MEDS: POTASSIUM CL SA 10 MEQ TAB PO SCH (08:52)
[2023-04-07] MEDS: glipiZIDE 5 MG TAB PO SCH (08:52)
[2023-04-07] MEDS: HOME MED 1 EA UNK (Prednisolone Acetate/Pf [Prednisolone Acet 1% Eye Drop] 5 ML Drops.Susp OPTH SCH (08:59)
[2023-04-07] MEDS: KETOROLAC OPTHALMIC OPTH SCH (08:59)
[2023-04-07] MEDS: carvediloL 6.25 MG TAB PO SCH (09:00)
[2023-04-07] MEDS: HOME MED 1 EA UNK (Empagliflozin [Jardiance] 25 MG Tablet) PO SCH (09:00)
[2023-04-07] MEDS: DIVALPROEX ER 250 MG TAB PO SCH (09:00)
[2023-04-07] MEDS: FUROSEMIDE 20 MG TABLET PO SCH (09:00)
[2023-04-07] MEDS: CLOPIDOGREL 75 MG TABLET PO SCH (09:00)
[2023-04-07] MEDS: ZINC SULFATE 220 MG CAP PO SCH (09:00)
[2023-04-07] MEDS: FENOFIBRATE 48 MG TAB PO SCH (09:04)
[2023-04-07 10:24] VITALS: O2SAT 95
--- NOTE | 2023-04-07 17:03 | P.DS ---
Admission Date: 03/28/23 Discharge Date: 04/07/23 Disposition: TRANSFER TO [facility] Discharge Condition: GOOD Reason for Admission: COVID, Weakness Consultations: 1. 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 Lara Liu is a 67 year old female with a past medical history significant for type 2 diabetes mellitus, morbid obesity, chronic diastolic congestive heart failure, hypertension, dyslipidemia, hypothyroidism, depression, and posttraumatic stress disorder who was admitted to the [facility] on 03/28/2023 for generalized weakness. She was admitted to the Medicine service. Upon further evaluation, she was found to have a COVID-19 infection. She was thought to have viral myopathy due to COVID-19. She was treated with IV steroids and Physical Therapy was consulted. Her symptoms improved with the steroids and she required a fair amount of assistance with PT. It was initially recommended that she be discharged to inpatient rehab. Dr. Viramontes completed a [id number] with her insurance, who denied her for inpatient rehab. With the assistance of case management, she was accepted to [facility]. On 04/07/2023, she was seen on rounds and deemed medically stable for discharge. She was discharged with instructions to schedule follow-up appointments with her PCP. She was given the opportunity to ask questions and reported no further questions. Furthermore, all questions were answered to the best of my ability. Today, I personally spent 20 minutes on her case, of which greater than 50% of the time was spent in patient education, counseling, and coordination of care as described above. - Physical Exam General: Alert, In no apparent distress, Oriented x3 HEENT: Atraumatic, Sclerae nonicteric Neck: JVD not distended Respiratory: Diminished, but clear to auscultation bilaterally Cardiovascular: No edema, Regular rate/rhythm, No murmurs Gastrointestinal: Normal bowel sounds, Soft, Non-distended, No tenderness Musculoskeletal: No clubbing Integumentary: No rashes Neurological: Normal speech, Normal affect Vital Signs/Physical Exam: Temp Pulse Resp BP Pulse Ox 98.4 F 61 16 101/72 96 04/07/23 08:00 04/07/23 08:00 04/07/23 08:00 04/07/23 08:00 04/07/23 08:00 Laboratory Data at Discharge: WBC 10.60 thou/uL (4.3-10.9) 04/04/23 05:55 Hgb 12.2 g/dL (12.0-15.0) 04/04/23 05:55 Hct 37.3 % (36.0-45.0) 04/04/23 05:55 Plt Count 385 thou/uL (152-406) 04/04/23 05:55 Sodium 135 mEq/L (136-145) L 04/06/23 02:51 Potassium 4.4 mEq/L (3.5-5.1) 04/06/23 02:51 BUN 38 mg/dL (7-18) H 04/06/23 02:51 Creatinine 0.97 mg/dL (0.55-1.02) 04/06/23 02:51 Glucose 188 mg/dL (74-106) H 04/06/23 02:51 Phosphorus 4.2 mg/dL (2.5-4.9) 04/05/23 02:37 Magnesium 2.2 mg/dL (1.6-2.4) 04/05/23 02:37 Total Bilirubin 0.2 mg/dL (0.2-1.0) 03/30/23 05:35 AST 19 U/L (15-37) 03/30/23 05:35 ALT < 10 U/L (13-56) L 03/30/23 05:35 Alkaline Phosphatase 61 U/L (45-117) 03/30/23 05:35 Triglycerides 205 mg/dL (<150) H 03/29/23 03:18 Cholesterol 125 mg/dL (<200) 03/29/23 03:18 HDL Cholesterol 39 mg/dL (40-60) L 03/29/23 03:18 Cholesterol/HDL Ratio 3.21 03/29/23 03:18 Home Medications: Acyclovir 1,000 mg PO TID 03/30/23 Atorvastatin Calcium 1 tab PO DAILY 03/30/23 Celecoxib [Celebrex] 1 tab PO DAILY 03/30/23 Clopidogrel Bisulfate [Plavix*] 1 tab PO DAILY 03/30/23 Divalproex Sodium [Divalproex Sodium ER] 2 tab PO BID 03/30/23 Empagliflozin [Jardiance] 1 tab PO DAILY 03/30/23 Ergocalciferol (Vitamin D2) [Vitamin D 50,000 Unit Cap] 1 tab PO FR@0900 03/30/23 Fenofibrate,Micronized [Fenofibrate] 1 tab PO DAILY 03/30/23 Furosemide 1 tab PO BID 03/30/23 Gabapentin 1 tab PO BID 03/30/23 Ketorolac Opth [Acular 0.5% Opth Drops*] 1 drop OPTH BID 03/30/23 Levothyroxine Sodium [Synthroid] 1 tab PO DAILY 03/30/23 Potassium Oral Tab [Klor-Con 10 mEq Tab*] 20 meq PO DAILY 03/30/23 Prednisolone Acetate/Pf [Prednisolone Acet 1% Eye Drop] 1 drop OPTH BID 03/30/23 Trazodone [Desyrel*] 1 tab PO BEDTIME 03/30/23 carvediloL [Coreg*] 1 tab PO BID 03/30/23 glipiZIDE [Glipizide] 1 tab PO DAILY 03/30/23 Benzonatate [Tessalon Perle*] 100 mg PO TID PRN cap 04/07/23 Physician Discharge Instructions: Once discharged from [facility], please call and schedule a follow-up appointment with your PCP in 3-5 days. Diet: AHA Activity: Fall precautions Time spent managing pt's care (in minutes): 20
== END 2023-04-07 15:50 | DRG 178 ==
LOC: ER 11:00 → ERHOLD 18:30 → 2ND 20:05 → OBSVTOIN 04-01 02:54
PROVIDERS: ADMIT Hospitalist; ATTEND Internal Medicine
PROC: 5A09557 Assistance with Respiratory Ventilation, Greater than 96 Consecutive Hours, Continuous Positive Airway Pressure (ICD-10-PCS; principal; 2023-04-01)
DX: U07.1 COVID-19 (principal); I50.32 Chronic diastolic (congestive) heart failure; Z68.41 Body mass index [BMI] 40.0-44.9, adult; E66.01 Morbid (severe) obesity due to excess calories; I11.0 Hypertensive heart disease with heart failure; E78.5 Hyperlipidemia, unspecified; K21.9 Gastro-esophageal reflux disease without esophagitis; E11.65 Type 2 diabetes mellitus with hyperglycemia; E11.40 Type 2 diabetes mellitus with diabetic neuropathy, unspecified; G47.33 Obstructive sleep apnea (adult) (pediatric); F32.A Depression, unspecified; F43.10 Post-traumatic stress disorder, unspecified; E03.9 Hypothyroidism, unspecified; R31.29 Other microscopic hematuria; Z60.2 Problems related to living alone; Z90.49 Acquired absence of other specified parts of digestive tract; Z98.84 Bariatric surgery status; Z79.82 Long term (current) use of aspirin; Z79.02 Long term (current) use of antithrombotics/antiplatelets; Z79.899 Other long term (current) drug therapy; Z90.710 Acquired absence of both cervix and uterus; Z79.890 Hormone replacement therapy
CPT/HCPCS: 36415; 71045; 80048; 80053; 80061; 80076; 81001; 82533; 82947; 83036; 83735; 83880; 84100; 84145; 84443; 84484; 85025; 86140; 87635; 87804; 93005; 94660; 94760; 96374; 96375; 97110; 97116; 97161; 97165; 97530; 99285; G0378; J1100; J1650; J1815; J2405; J7030; J7512

== ENCOUNTER 2024-03-19 22:42 | Inpatient (IN) | payer OTHER ==
[2024-03-20] MEDS ORDERED: ASPIRIN EC 81 MG TAB PO ONE (02:16)
[2024-03-20 02:26] LABS: Absolute Eosinophils 0.1 K/uL (0-0.5); Absolute Lymphocytes (CBC) 3.2 K/uL (0.7-4.9); Absolute Monocytes 0.6 K/uL (0.1-1.3); Basophils % 0.6 % (0-1.3); Hematocrit 38.6 % (36.0-45.0); Hemoglobin 12.5 g/dL (12.0-15.0); Lymphocytes % 45.6 % (15.3-44.8); MCH 30.5 pg (27.0-35.0); MCHC 32.4 g/dL (32.0-36.0); MCV 94.1 fL (80-100); MPV 7.7 fL (7.6-11.3); Monocytes % 9.1 % (3.3-12.3); Neutrophils % 42.7 % (41.7-73.7); Platelets 389 thou/uL (152-406)
[2024-03-20 02:44] LABS: AST/SGOT 16 U/L (15-37); Albumin 3.3 g/dL (3.4-5.0); Albumin/Globulin Ratio 0.8 (1.1-1.8); Alkaline Phosphatase 68 U/L (45-117); Anion Gap 12.5 mEq/L (5.0-15.0); BUN Blood Urea Nitrogen 29 mg/dL (7-18); Bicarbonate 28 mEq/L (21-32); Bilirubin Direct 0.2 mg/dL (0-0.2); Bilirubin Indirect, Calculated 0.2 mg/dL (0.2-0.8); Bilirubin Total 0.4 mg/dL (0.2-1.0); Glomerular Filtration Rate 53 ml/min (=/>90); Glucose Level 123 mg/dL (74-106); Magnesium 2.5 mg/dL (1.6-2.4); NT PRO-BNP 237 pg/mL (<125); Potassium 3.5 mEq/L (3.5-5.1); Protein, Total 7.3 g/dL (6.4-8.2); Sodium Level 138 mEq/L (136-145); Troponin High Sensitivity 12.6 pg/mL (<58.9)
[2024-03-20 02:45] LABS: ALT/SGPT < 14 U/L (13-56)
--- NOTE | 2024-03-20 04:20 | EDPHYS ---
Physician Documentation [facility] Name: Lara Liu Age: 68 yrs Sex: Female : 1955 Arrival Date: 03/19/2024 Time: 22:42 Bed 14 Private MD: ED Physician Valentín Bello HPI: 03/19 23:51 This 68 yrs old Female presents to ER via Wheelchair with complaints of Chest Pressure, rt Chest Pain. 23:51 Patient presents to the ED with chest pain, shortness of breath that has been present rt for some time. Patient had outpatient stress test that was done, reportedly abnormal. Patient has not yet had a heart catheterization for this. Patient states that the chest pain is worsened today. She took 81 mg of aspirin prior to arrival. Denies other acute complaints at this time, symptoms are moderate in severity, no other aggravating or alleviating factors.. Historical: - Allergies: 23:34 No Known Allergies; as6 - PMHx: 23:34 Diabetes - NIDDM; Hyperlipidemia; CHF; Hypothyroidism; Hypertension; Sleep Apnea; as6 - PSHx: 23:34 Cholecystectomy; Gastric Bypass; hysterectomy; Neck sx; as6 - Immunization history:: Adult Immunizations up to date. - Infectious Disease History:: Denies. - Social history:: Smoking status: Patient denies any tobacco usage or history of. - Family history:: not pertinent. ROS: 23:51 Constitutional: Negative for fever, chills, and weight loss, Abdomen/GI: Negative for rt abdominal pain, nausea, vomiting, diarrhea, and constipation, MS/Extremity: Negative for injury and deformity, Skin: Negative for injury, rash, and discoloration, Neuro: Negative for headache, weakness, numbness, tingling, and seizure, 23:51 Cardiovascular: Positive for chest pain, Negative for edema, 23:51 Cardiovascular: Positive for edema, 23:51 Respiratory: Positive for shortness of breath, Exam: 23:51 Constitutional: This is a well developed, well nourished patient who is awake, alert, rt and in no acute distress. Head/Face: Normocephalic, atraumatic. Chest/axilla: Normal chest wall appearance and motion. Nontender with no deformity. No lesions are appreciated. Cardiovascular: Regular rate and rhythm with a normal S1 and S2. No gallops, murmurs, or rubs. Normal PMI, no JVD. No pulse deficits. Respiratory: Lungs have equal breath sounds bilaterally, clear to auscultation and percussion. No rales, rhonchi or wheezes noted. No increased work of breathing, no retractions or nasal flaring. Abdomen/GI: Soft, non-tender, with normal bowel sounds. No distension or tympany. No guarding or rebound. No evidence of tenderness throughout. Skin: Warm, dry with normal turgor. Normal color with no rashes, no lesions, and no evidence of cellulitis. Neuro: Awake and alert, GCS 15, oriented to person, place, time, and situation. Cranial nerves II-XII grossly intact. Motor strength 5/5 in all extremities. Sensory grossly intact. Cerebellar exam normal. Normal gait. 23:51 ECG was reviewed by the Attending Physician. Vital Signs: 23:32 BP 128 / 71; Pulse 72; Resp 18 S; Temp 97.4; Pulse Ox 95% on R/A; Weight 108.86 kg; as6 Height 5 ft. 4 in. ; Pain 9/10; 03/20 04:30 BP 122 / 55; Pulse 64; Resp 15 S; Pulse Ox 95% on R/A; jw7 05:30 BP 112 / 45; Pulse 70; Resp 14 S; Pulse Ox 95% on R/A; jw7 03/19 23:32 Body Mass Index 41.20 (108.86 kg, 162.56 cm) as6 03/19 23:32 Pain Scale: Adult as6 MDM: 03/19 23:40 Patient medically screened. rt 03/20 04:20 Differential diagnosis: CAD, ACS, pneumonia, pneumothorax. HEART Score: History: Highly rt Suspicious (2), ECG: Non specific repolarization disturbance / LBTB / PM (1), Age: > or = 65 years (2), Risk Factors: > or = 3 Risk factors for atherosclerotic disease (2), Troponin: < or = 1 x Normal Limit (0), Total Score = 7. The patient was given aspirin in the Emergency Department. Data reviewed: vital signs, nurses notes, lab test result(s), EKG, radiologic studies. Consideration of Admission/Observation Patient was admitted/placed on observation. Management of patient was discussed with the following: Hospitalist: Agrees to admit. I considered the following discharge prescriptions or medication management in the emergency department Medications were administered in the Emergency Department. See MAR. Independent interpretation of the following test(s) in the Emergency Department X-Ray: My interpretation is No pneumonia seen on interpretation of x-ray images. Care significantly affected by the following chronic conditions: Diabetes. Counseling: I had a detailed discussion with the patient and/or guardian regarding the historical points, exam findings, and any diagnostic results supporting the discharge/admit diagnosis, lab results, radiology results, the need for further work-up and treatment in the hospital. Response to treatment: the patient's symptoms have mildly improved after treatment. 03/19 23:50 Order name: Basic Metabolic Panel; Complete Time: 02:47 rt 03/19 23:50 Order name: CBC with Diff; Complete Time: 02:47 rt 03/19 23:50 Order name: LFT's; Complete Time: 02:47 rt 03/19 23:50 Order name: Magnesium; Complete Time: 02:47 rt 03/19 23:50 Order name: NT PRO-BNP; Complete Time: 02:47 rt 03/19 23:50 Order name: Troponin HS; Complete Time: 02:47 rt 03/20 04:37 Order name: CBC with Automated Diff EDMS / 04:37 Order name: CBC with Automated Diff EDMS / 04:37 Order name: Comprehensive Metabolic Panel EDMS / 04:37 Order name: Comprehensive Metabolic Panel EDMS / 04:37 Order name: Lipid Profile EDMS / 04:37 Order name: Lipid Profile EDMS / 04:37 Order name: Troponin High Sensitivity EDMS 06/ 04:37 Order name: Troponin High Sensitivity EDMS / 04:37 Order name: Troponin High Sensitivity EDMS 06/ 04:37 Order name: Troponin High Sensitivity EDMS 06/ 06:11 Order name: Glucose, Ancillary Testing EDMS / 11:56 Order name: Glucose, Ancillary Testing EDMS / 16:57 Order name: Glucose, Ancillary Testing EDMS 03/19 23:50 Order name: XRAY Chest (1 view) rt 03/20 04:37 Order name: CONS Physician Consult EDMS 03/19 23:50 Order name: Cardiac monitoring; Complete Time: 05:05 rt 03/19 23:50 Order name: EKG - Nurse/Tech; Complete Time: 02:13 rt 03/19 23:50 Order name: IV Saline Lock; Complete Time: 02:13 rt 03/19 23:50 Order name: Labs collected and sent; Complete Time: 02:13 rt 03/19 23:50 Order name: O2 Per Protocol; Complete Time: 02:13 rt 03/19 23:50 Order name: O2 Sat Monitoring; Complete Time: 05:05 rt EC/03 23:51 Rate is 69 beats/min. Rhythm is regular, Normal Sinus Rhythm with No ectopy, Left rt bundle branch block. Left axis deviation noted. WV interval is normal. QRS interval is normal. QT interval is normal. No Q waves. Administered Medications: 03/20 02:13 Not Given (Patient Refused): nitroglycerin0.4 mg Sublingual once; every five minute if ss needed x3 02:18 Drug: Aspirin PO 243 mg PO once Route: PO; ss 05:05 Follow up: Response: No adverse reaction jw7 Disposition Summary: 03/20/24 04:20 Hospitalization Ordered Notes: Hospitalization Status: Observation rt Provider: Dara Cee rt Condition: Stable rt Problem: new rt Symptoms: have improved rt Bed/Room Type: Standard rt Location: Telemetry/MedSurg (observation)(03/20/24 16:16) Room Assignment: [facility](03/20/24 16:16) Diagnosis - Chest pain, unspecified rt Forms: - Medication Reconciliation Form rt - SBAR form rt - Leadership Thank You Letter rt Signatures: Dispatcher [employer] Leandra Abdul RN RN kl Blanchard, Shelby, RN RN ss Slawson, Ashby, RN RN as6 Valentín Bello MD MD rt Adriane Ornelas Jodi RN jw7 Corrections: (The following items were deleted from the chart) 03/19 23:50 23:50 Chest Single View+RAD.RAD.BRZ ordered. [facility] 03/20 04:31 04:20 Telemetry/MedSurg (observation) rt rv1 04:31 04:20 rt rv1 16:16 04:31 [facility] ER HOLD rv1 kl 16:16 04:31 ERHOLD- rv1 kl
--- NOTE | 2024-03-20 04:20 | ER ---
Nurse's Notes [facility] Name: Lara Liu Age: 68 yrs Sex: Female : 1955 Arrival Date: 03/19/2024 Time: 22:42 Bed 14 Private MD: Diagnosis: Chest pain, unspecified Presentation: 03/19 23:32 Chief complaint: Patient states: chest pressure and shortness of breath. pt states this as6 has been going on for a while. Coronavirus screen: At this time, the client does not indicate any symptoms associated with coronavirus-19. Ebola Screen: No symptoms or risks identified at this time. Initial Sepsis Screen: Does the patient meet any 2 criteria? No. Patient's initial sepsis screen is negative. Does the patient have a suspected source of infection? No. Patient's initial sepsis screen is negative. Risk Assessment: Do you want to hurt yourself or someone else? Patient reports no desire to harm self or others. Onset of symptoms is unknown. 23:32 Method Of Arrival: Wheelchair as6 23:32 Acuity: CRIS 2 as6 Triage Assessment: 23:34 General: Appears in no apparent distress. Behavior is calm, cooperative. Pain: as6 Complains of pain in chest. Cardiovascular: Reports chest pain, shortness of breath. Historical: - Allergies: 23:34 No Known Allergies; as6 - PMHx: 23:34 Diabetes - NIDDM; Hyperlipidemia; CHF; Hypothyroidism; Hypertension; Sleep Apnea; as6 - PSHx: 23:34 Cholecystectomy; Gastric Bypass; hysterectomy; Neck sx; as6 - Immunization history:: Adult Immunizations up to date. - Infectious Disease History:: Denies. - Social history:: Smoking status: Patient denies any tobacco usage or history of. - Family history:: not pertinent. Screenin/04 04:00 [facility] ED Fall Risk Assessment (Adult) History of falling in the last 3 months, jw7 including since admission No falls in past 3 months (0 pts) Confusion or Disorientation No (0 pts) Intoxicated or Sedated No (0 pts) Impaired Gait Yes (1 pt) Mobility Assist Device Used Yes (1 pt) Altered Elimination No (0 pt) Score/Fall Risk Level 0 - 2 = Low Risk Oriented to surroundings, Maintained a safe environment, Educated pt \T\ family on fall prevention, incl call for assistance when getting out of bed. Abuse screen: Denies threats or abuse. Denies injuries from another. Nutritional screening: No deficits noted. Tuberculosis screening: No symptoms or risk factors identified. Assessment: 02:18 Reassessment: Patient appears in no apparent distress at this time. Patient and/or ss family updated on plan of care and expected duration. Pain level reassessed. Patient is alert, oriented x 3, equal unlabored respirations, skin warm/dry/pink. Pt reports chest pain is feeling much better now a 7/10. PT updated on plan of care. Placed out in lobby awaiting on ER room to become available. Neuro: Level of Consciousness is awake, alert, obeys commands. Respiratory: Respiratory effort is even, unlabored, Respiratory pattern is regular, symmetrical. 04:00 General: Appears in no apparent distress. comfortable, Behavior is calm, cooperative, jw7 appropriate for age. Pain: Complains of pain in abdomen and chest Pain does not radiate. Pain currently is 7 out of 10 on a pain scale. Quality of pain is described as pressure, Pain began suddenly, Is continuous. Neuro: Level of Consciousness is awake, alert, obeys commands, Oriented to person, place, time, situation, Appropriate for age. 04:00 Cardiovascular: Heart tones S1 S2 Capillary refill < 3 seconds Patient's skin is warm jw7 and dry. Respiratory: Airway is patent Trachea midline Respiratory effort is even, unlabored, Respiratory pattern is regular, symmetrical. GI: Abdomen is round non-distended, obese, Bowel sounds present X 4 quads. Abd is soft Abdomen is tender to palpation. : No deficits noted. No signs and/or symptoms were reported regarding the genitourinary system. EENT: No deficits noted. No signs and/or symptoms were reported regarding the EENT system. Derm: Skin is intact, is healthy with good turgor, Skin is dry, Skin is normal, Skin temperature is warm. Musculoskeletal: Circulation, motion, and sensation intact. Range of motion: intact in all extremities. 05:00 Reassessment: Patient appears in no apparent distress at this time. No changes from jw7 previously documented assessment. Patient and/or family updated on plan of care and expected duration. Pain level reassessed. Patient is alert, oriented x 3, equal unlabored respirations, skin warm/dry/pink. 05:30 General: PT ADMITTED TO ER HOLD, PLEASE SEE [facility] FOR CHARTING AND VITAL SIGNS. jw7 16:45 Reassessment: REPORT FAXED TO 413. bp Vital Signs: 03/19 23:32 BP 128 / 71; Pulse 72; Resp 18 S; Temp 97.4; Pulse Ox 95% on R/A; Weight 108.86 kg; as6 Height 5 ft. 4 in. ; Pain 9/10; 03/20 04:30 BP 122 / 55; Pulse 64; Resp 15 S; Pulse Ox 95% on R/A; jw7 05:30 BP 112 / 45; Pulse 70; Resp 14 S; Pulse Ox 95% on R/A; jw7 03/19 23:32 Body Mass Index 41.20 (108.86 kg, 162.56 cm) as6 03/19 23:32 Pain Scale: Adult as6 ED Course: 03/19 22:50 Patient arrived in ED. ra3 22:59 Valentín Bello MD is Attending Physician. rt 23:32 Arm band placed on. as6 23:34 Triage completed. as6 03/20 00:14 XRAY Chest (1 view) In Process Unspecified. EDMS 04:00 Patient has correct armband on for positive identification. Bed in low position. Call jw7 light in reach. Side rails up X2. Provided Education on: Use of Call Light. Client placed on continuous cardiac and pulse oximetry monitoring. NIBP monitoring applied. safety investigator/cause analyst on. Pulse ox on. NIBP on. 04:00 Inserted saline lock: 22 gauge in right antecubital area, using aseptic technique. O2 jw7 via RA. 04:20 Dara Cee MD is Hospitalizing Provider. rt 05:05 Lorena Wiley, RN is Primary Nurse. jw7 06:36 No provider procedures requiring assistance completed. Patient admitted, IV remains in jw7 place. 07:12 Primary Nurse role handed off by Lorena Wiley, LUZ ELENA bp 07:12 Jakub Stevenson, LUZ ELENA is Primary Nurse. bp Administered Medications: 02:13 Not Given (Patient Refused): nitroglycerin0.4 mg Sublingual once; every five minute if ss needed x3 02:18 Drug: Aspirin PO 243 mg PO once Route: PO; ss 05:05 Follow up: Response: No adverse reaction jw7 Medication: 02:18 VIS not applicable for this client. ss Outcome: 04:20 Decision to Hospitalize by Provider. rt 06:36 Admitted to ER Hold. Please see [facility] for further documentation. jw7 06:36 Condition: stable 06:36 Instructed on the need for admit, Demonstrated understanding of instructions, 17:39 Patient left the ED. bp Signatures: Dispatcher [employer] EDMS April Rodriguez RN RN ss Jakub Stevenson RN RN bp Jaquan Adler RN RN as6 Lorena Wiley RN RN jw7 Valentín Bello MD MD rt Nancy Garcia ra3
--- NOTE | 2024-03-20 04:31 | P.HP ---
Certification for Inpatient Patient admitted to: Observation With expected LOS: <2 Midnights Patient will require the following post-hospital care: None Practitioner: I am a practitioner with admitting privileges, knowledge of patient current condition, hospital course, and medical plan of care. Services: Services provided to patient in accordance with Admission requirements found in Title 42 Section 412.3 of the Code of Federal Regulations Patient History Date of Service: 03/20/24 Reason for admission: Chest pain History of Present Illness: 68-year-old female with past medical history of HTN/DM/sleep apnea/diastolic CHF/hypothyroidism who presented to the hospital today because of complaint of chest pressure. She states chest pain has been intermittent since the last couple of weeks. She was seen by her cardiology Dr. Fracno and had a stress test done which was reportedly abnormal. Result not found in system today. She states she was told to come in to discuss possible cardiac cath. Chest pain continue and recalled again today. Symptoms was more worse today. Consist more of chest pressure nonradiating. Not associate nausea or vomiting. She presented to the ED because of worsening symptoms. Review of her record shows she had a cardiac cath in [address] Hinson with apparently normal coronaries at the time. On arrival in the ED vital signs were stable nontachycardic, satting well on room air, EKG shows left bundle branch block, no previous to compare, initial set of cardiac enzymes were negative. Chest x-ray shows no acute infiltrate. ED provider requesting admission for further workup for chest pain. Allergies No Known Drug Allergies Allergy (Verified 10/01/15 13:23) Unknown No Known Allergies Allergy (Uncoded 01/04/16 21:00) Unknown Home Medications: Acyclovir 1,000 mg PO TID 03/30/23 Atorvastatin Calcium 1 tab PO DAILY 03/30/23 Celecoxib [Celebrex] 1 tab PO DAILY 03/30/23 Clopidogrel Bisulfate [Plavix*] 1 tab PO DAILY 03/30/23 Divalproex Sodium [Divalproex Sodium ER] 2 tab PO BID 03/30/23 Empagliflozin [Jardiance] 1 tab PO DAILY 03/30/23 Ergocalciferol (Vitamin D2) [Vitamin D 50,000 Unit Cap] 1 tab PO FR@0900 03/30/23 Fenofibrate,Micronized [Fenofibrate] 1 tab PO DAILY 03/30/23 Furosemide 1 tab PO BID 03/30/23 Gabapentin 1 tab PO BID 03/30/23 Ketorolac Opth [Acular 0.5% Opth Drops*] 1 drop OPTH BID 03/30/23 Levothyroxine Sodium [Synthroid] 1 tab PO DAILY 03/30/23 Potassium Oral Tab [Klor-Con 10 mEq Tab*] 20 meq PO DAILY 03/30/23 Prednisolone Acetate/Pf [Prednisolone Acet 1% Eye Drop] 1 drop OPTH BID 03/30/23 Trazodone [Desyrel*] 1 tab PO BEDTIME 03/30/23 carvediloL [Coreg*] 1 tab PO BID 03/30/23 glipiZIDE [Glipizide] 1 tab PO DAILY 03/30/23 Benzonatate [Tessalon Perle*] 100 mg PO TID PRN cap 04/07/23 - Past Medical/Surgical History Diabetic: Yes -: HTN -: Hypothyroidism -: Depression with insomnia -: Obstructive sleep apnea -: PTSD -: Diabetes mellitus -: Morbid obesity -: GERD -: CHF, diastolic dysfunction -: Achilles tendon repair -: Cervical neck surgery -: Gastric bypass -: Hernia repair -: Cholecystectomy -: Hysterectomy Psychosocial/ Personal History: The patient lives by herself. She is a . She has 2 children. - Family History Father Notes: adopted Mother Notes: adopted - Social History Smoking Status: Never smoker Smoking therapy provided: No Patient receptive to therapy: No Alcohol use: No CD- Drugs: No Caffeine use: Yes Place of Residence: Home Review of Systems Cardiovascular: Chest Pain Physical Examination - Physical Exam General: Alert, In no apparent distress, Oriented x3 HEENT: Atraumatic, Normocephalic Neck: Supple, 2+ carotid pulse no bruit, JVD not distended Respiratory: Clear to auscultation bilaterally, Normal air movement Cardiovascular: Normal pulses, Regular rate/rhythm, Normal S1 S2 Gastrointestinal: Normal bowel sounds, Soft and benign, Non-distended Musculoskeletal: No clubbing, No swelling Integumentary: No rashes, No breakdown, No significant lesion Neurological: Normal speech, Normal strength at 5/5 x4 extr, Sensation intact, Cranial nerves 3-12 intact - Studies Laboratory Data (last 24 hrs) 03/20/24 03/20/24 02:13 02:13 WBC 7.00 Hgb 12.5 Hct 38.6 Plt Count 389 Sodium 138 Potassium 3.5 BUN 29 H Creatinine 1.13 H Glucose 123 H Magnesium 2.5 H Total Bilirubin 0.4 AST 16 ALT < 14 Alkaline Phosphatase 68 Assessment and Plan - Problems (Diagnosis) (1) Acute coronary syndrome Current Visit: No Status: Acute (2) CHF (congestive heart failure) Current Visit: No Status: Chronic Qualifiers: (3) Depression with anxiety Onset Date: 01/05/18 Current Visit: No Status: Chronic (4) Diabetes mellitus Onset Date: 01/05/18 Current Visit: No Status: Chronic Qualifiers: (5) Hyperlipidemia Onset Date: 01/05/18 Current Visit: No Status: Chronic Qualifiers: - Plan Impression Atypical chest pain Hypertension Diabetes mellitus History of CHF/COPD Hypothyroidism Plan Will admit patient to observation Continue serial set of cardiac enzymes Will consult cardiology Dr. Hinson For possible repeat cardiac cath Now chest pain-free, continue to monitor Subcutaneous Lovenox Resume aspirin and Plavix Insulin sliding scale with Accu-Cheks Full code - Advance Directives Does patient have a Living Will: Yes Does patient have a Durable POA for Healthcare: Yes
[2024-03-20] MEDS ORDERED: ONDANSETRON 4 MG/2 ML VIAL IV PRN (04:32)
[2024-03-20] MEDS ORDERED: ALBUTEROL 2.5 MG/3 ML NEB SOL NEB PRN (04:32)
[2024-03-20] MEDS ORDERED: LORAZEPAM 0.5 MG TABLET PO PRN (04:36)
[2024-03-20] MEDS ORDERED: HYDRALAZINE HCL 20 MG/ML VIAL IV PRN (04:36)
[2024-03-20] MEDS ORDERED: MORPHINE 2 MG/ML SYR ONE (05:40)
[2024-03-20] MEDS: MORPHINE 4 MG/ML SYR IV PRN (05:58)
[2024-03-20] MEDS: INSULIN REGULAR (HUMAN) 100 UNIT/ML SQ SCH (05:59)
[2024-03-20] MEDS ORDERED: ENOXAPARIN 40 MG/0.4 ML SQ ONE (08:35)
[2024-03-20] MEDS ORDERED: FAMOTIDINE 20 MG TAB ONE (08:35)
[2024-03-20] MEDS: FAMOTIDINE 20 MG TAB PO SCH (09:00)
[2024-03-20] MEDS: ENOXAPARIN 40 MG/0.4 ML SQ SCH (09:00)
--- NOTE | 2024-03-20 11:05 | RAD REPORT ---
EXAM DESCRIPTION: RAD - Chest Single View - 03/20/2024 12:13 am CLINICAL HISTORY: CHEST PAIN TECHNIQUE: AP chest COMPARISON: None available for comparison FINDINGS: CHEST: Heart: The cardiomediastinal silhouette is within normal limits. Lungs: No focal consolidation. Mediastinum: Unremarkable Pleura: No appreciable effusion. No pneumothorax. Bones: Intact IMPRESSION: No acute cardiopulmonary disease. Electronically signed by: Isaak Simms MD 03/20/2024 12:34 AM CDT RP Due to temporary technical issues with the PACS/Fluency reporting system, reports are being signed by the in house radiologist without review as a courtesy to ensure prompt reporting. The interpreting r adiologist is fully responsible for the content of the report.
[2024-03-20] MEDS ORDERED: MORPHINE 4 MG/ML SYR ONE (11:45)
--- NOTE | 2024-03-20 12:09 | P.PN ---
Subjective Date of Service: 03/20/24 Chief Complaint: Chest pain Subjective: No new changes <Lina Restrepolen - Last Filed: 03/20/24 12:09> Date of Service: 03/20/24 <Armando Ferrara - Last Filed: 03/20/24 14:52> Review of Systems 10-point ROS is otherwise unremarkable General: As per HPI Cardiovascular: Chest Pain, Palpitations, As per HPI <Lina Restrepolen - Last Filed: 03/20/24 12:09> Physical Examination - Vital Signs Blood Pressure: 116/51 Pulse: 87 Respirations: 21 Pulse Ox (%): 95 - Physical Exam General: Alert, In no apparent distress, Oriented x3, Obese HEENT: Atraumatic, Normocephalic Neck: Supple Respiratory: Clear to auscultation bilaterally Cardiovascular: Regular rate/rhythm, Other (left chest wall tenderness to palp ) Capillary refill: <2 Seconds Gastrointestinal: Soft and benign Musculoskeletal: No clubbing Integumentary: No rashes Neurological: Normal speech, Normal affect, Abnormal strength Lymphatics: No axilla or inguinal lymphadenopathy External genitalia: Deferred Rectal: Deferred - Studies Laboratory Data (last 24 hrs) 03/20/24 03/20/24 02:13 02:13 WBC 7.00 Hgb 12.5 Hct 38.6 Plt Count 389 Sodium 138 Potassium 3.5 BUN 29 H Creatinine 1.13 H Glucose 123 H Magnesium 2.5 H Total Bilirubin 0.4 AST 16 ALT < 14 Alkaline Phosphatase 68 <Heather Restrepoy Valentín - Last Filed: 03/20/24 12:09> - Studies Laboratory Data (last 24 hrs) 03/20/24 03/20/24 02:13 02:13 WBC 7.00 Hgb 12.5 Hct 38.6 Plt Count 389 Sodium 138 Potassium 3.5 BUN 29 H Creatinine 1.13 H Glucose 123 H Magnesium 2.5 H Total Bilirubin 0.4 AST 16 ALT < 14 Alkaline Phosphatase 68 <Armando Ferrara - Last Filed: 03/20/24 14:52> Assessment And Plan - Plan - Problems (Diagnosis) (1) Acute coronary syndrome Current Visit: No Status: Acute Atypical chest pain Hypertension Resume aspirin and Plavix Continue serial set of cardiac enzymes Will consult cardiology Dr. Hinson For possible repeat cardiac cath Now chest pain-free, continue to monitor Subcutaneous Lovenox (2) CHF (congestive heart failure) Current Visit: No Status: Chronic Qualifiers: History of CHF/COPD (3) Depression with anxiety Onset Date: 01/05/18 Current Visit: No Status: Chronic continue home meds (4) Diabetes mellitus Onset Date: 01/05/18 Current Visit: No Status: Chronic Qualifiers: Insulin sliding scale with Accu-Cheks (5) Hyperlipidemia Onset Date: 01/05/18 Current Visit: No Status: Chronic Qualifiers: Atorvastatin 10mg po q hs (6) Hypothyroidism Continue Home Medications Full code <Lina Restrepo - Last Filed: 03/20/24 12:09> - Plan Pt seen and examined. I agree with the note by the FACILITY EXAMINER. Continue cardiac meds and other home meds. Will keep pt NPO after midnight for cardiac cath. cardiology is following. <Armando Ferrara - Last Filed: 03/20/24 14:52>
[2024-03-20] MEDS: CLOPIDOGREL 75 MG TABLET PO SCH (12:45)
[2024-03-20] MEDS: ATORVASTATIN 10 MG TAB PO SCH (13:00)
--- NOTE | 2024-03-20 13:03 | P.CNS ---
Date of Consult: 03/20/24 Chief Complaint: Chest pain History of Present Illness: Patient with PMH of HTN, DM, presented with worsening chest pain, radiating to the left arm that has been going on for months but got worse overnight, relieved by pain medications, associated with SOB, no palpitations, no syncope. Allergies No Known Drug Allergies Allergy (Verified 10/01/15 13:23) Unknown No Known Allergies Allergy (Uncoded 01/04/16 21:00) Unknown Home Medications: Acyclovir 1,000 mg PO TID 03/30/23 Atorvastatin Calcium 1 tab PO DAILY 03/30/23 Celecoxib [Celebrex] 1 tab PO DAILY 03/30/23 Clopidogrel Bisulfate [Plavix*] 1 tab PO DAILY 03/30/23 Divalproex Sodium [Divalproex Sodium ER] 2 tab PO BID 03/30/23 Empagliflozin [Jardiance] 1 tab PO DAILY 03/30/23 Ergocalciferol (Vitamin D2) [Vitamin D 50,000 Unit Cap] 1 tab PO FR@0900 03/30/23 Fenofibrate,Micronized [Fenofibrate] 1 tab PO DAILY 03/30/23 Furosemide 1 tab PO BID 03/30/23 Gabapentin 1 tab PO BID 03/30/23 Ketorolac Opth [Acular 0.5% Opth Drops*] 1 drop OPTH BID 03/30/23 Levothyroxine Sodium [Synthroid] 1 tab PO DAILY 03/30/23 Potassium Oral Tab [Klor-Con 10 mEq Tab*] 20 meq PO DAILY 03/30/23 Prednisolone Acetate/Pf [Prednisolone Acet 1% Eye Drop] 1 drop OPTH BID 03/30/23 Trazodone [Desyrel*] 1 tab PO BEDTIME 03/30/23 carvediloL [Coreg*] 1 tab PO BID 03/30/23 glipiZIDE [Glipizide] 1 tab PO DAILY 03/30/23 Benzonatate [Tessalon Perle*] 100 mg PO TID PRN cap 04/07/23 - Past Medical/Surgical History Diabetic: Yes -: HTN -: Hypothyroidism -: Depression with insomnia -: Obstructive sleep apnea -: PTSD -: Diabetes mellitus -: Morbid obesity -: GERD -: CHF, diastolic dysfunction -: Achilles tendon repair -: Cervical neck surgery -: Gastric bypass -: Hernia repair -: Cholecystectomy -: Hysterectomy Psychosocial/ Personal History: The patient lives by herself. She is a . She has 2 children. - Family History Father Notes: adopted Mother Notes: adopted - Social History Smoking Status: Unknown if ever smoked Alcohol use: No CD- Drugs: No Caffeine use: Yes Place of Residence: Home Review of Systems 10-point ROS is otherwise unremarkable Physical Examination Temp Pulse Resp BP Pulse Ox 87 21 H 116/51 L 95 03/20/24 12:14 03/20/24 12:14 03/20/24 12:14 03/20/24 12:14 General: Alert, In no apparent distress HEENT: Atraumatic, PERRLA, Mucous membr. moist/pink, EOMI, Sclerae nonicteric Neck: Supple, 2+ carotid pulse no bruit, No LAD, Without JVD or thyroid abnormality Respiratory: Clear to auscultation bilaterally, Normal air movement Cardiovascular: Regular rate/rhythm, Normal S1 S2 Gastrointestinal: Normal bowel sounds, No tenderness Musculoskeletal: No tenderness Integumentary: No rashes Neurological: Normal gait, Normal speech, Normal tone, Normal affect Lymphatics: No axilla or inguinal lymphadenopathy Laboratory Data (last 24 hrs) 03/20/24 03/20/24 02:13 02:13 WBC 7.00 Hgb 12.5 Hct 38.6 Plt Count 389 Sodium 138 Potassium 3.5 BUN 29 H Creatinine 1.13 H Glucose 123 H Magnesium 2.5 H Total Bilirubin 0.4 AST 16 ALT < 14 Alkaline Phosphatase 68 - Problems (1) Chest pain Onset Date: 03/28/17 Current Visit: No Status: Acute Plan: concern for angina with recent abnormal outpatient stress test shwoing large fixed apical and inferior infarction NPO after midnight for coronary angiogram in am. continue ASA, Plavix and Lipitor. (2) Hypertension Current Visit: No Status: Chronic Plan: BP is within normal limit, continue to monitor. Qualifiers: Hypertension type: primary hypertension Qualified Code(s): I10 - Essential (primary) hypertension (3) Hyperlipidemia Onset Date: 01/05/18 Current Visit: No Status: Chronic Plan: Continue Lipitor Qualifiers:
--- NOTE | 2024-03-20 13:17 | EKG ---
Test Date: 2024-03-19 Test Time: 23:42:41 Elementary Reading Specialist: MEASUREMENT RESULTS: Intervals: Rate: 69 [place]: 196 QRSD: 138 QT: 432 QTc: 462 [place]: P: 38 [place]: 196 QRS: -46 T: 119 INTERPRETIVE STATEMENTS: Normal sinus rhythm Left bundle branch block Abnormal ECG Compared to ECG 03/28/2023 11:29:10 Left-axis deviation no longer present Electronically Signed On 03-20-24 13:16:13 CDT by Pavan Hinson
[2024-03-20] MEDS: TRAZODONE 50 MG TABLET PO SCH (21:34)
[2024-03-20] MEDS: GABAPENTIN 300 MG CAP PO SCH (21:34)
[2024-03-20] MEDS: DIVALPROEX ER 250 MG TAB PO SCH (21:34)
[2024-03-21] MEDS: VENLAFAXINE HCL XR 75 MG CAP PO SCH (07:28)
[2024-03-21] MEDS: LEVOTHYROXINE SOD 0.112 MG TAB PO SCH (07:28)
[2024-03-21] MEDS: LEVOTHYROXINE SOD 0.025 MG TAB PO SCH (07:28)
[2024-03-21 08:25] LABS: Absolute Eosinophils 0.1 K/uL (0-0.5); Absolute Lymphocytes (CBC) 2.8 K/uL (0.7-4.9); Absolute Monocytes 0.6 K/uL (0.1-1.3); Absolute Neutrophil 3.2 K/uL (1.8-8.0); Basophils % 0.6 % (0-1.3); Eosinophils % 2.2 % (0-4.4); Lymphocytes % 41.2 % (15.3-44.8); MCH 30.5 pg (27.0-35.0); MCHC 32.4 g/dL (32.0-36.0); MCV 94.2 fL (80-100); MPV 7.5 fL (7.6-11.3); Monocytes % 9.5 % (3.3-12.3); Neutrophils % 46.5 % (41.7-73.7); Nucleated Red Blood Cells % 0.1 % (0-0); Platelets 342 thou/uL (152-406); RBC Red Blood Cell Count 3.93 M/uL (3.86-4.86); Red Cell Distribution Width 15.9 % (12.1-15.2)
[2024-03-21] MEDS: ACETAMINOPHEN 325 MG TABLET PO PRN (10:47)
[2024-03-21] MEDS ORDERED: HEPA 1000U/500MLS 2,000 UNIT/1,000 ML BAG IV ONE (10:56)
[2024-03-21] MEDS ORDERED: LIDOCAINE 1% 20 ML MDV ONE (10:56)
[2024-03-21] MEDS ORDERED: FENTANYL CITR 100 MCG/2 ML ONE (10:56)
[2024-03-21] MEDS ORDERED: MIDAZOLAM HCL 2 MG/2 ML INJ ONE (10:57)
[2024-03-21] MEDS ORDERED: HEPARIN 5000 UNIT/ML 1 ML VIAL ONE (10:57)
[2024-03-21] MEDS ORDERED: ATROPINE SULF 1 MG/10 ML SYR IV ONE (10:57)
[2024-03-21] MEDS ORDERED: HEPARIN 10,000 UNIT/10 ML VIAL IV ONE (10:57)
[2024-03-21] MEDS ORDERED: CLOPIDOGREL 75 MG TABLET ONE (11:01)
[2024-03-21] MEDS ORDERED: ASPIRIN 325 MG TAB ONE (11:01)
[2024-03-21] MEDS ORDERED: NA CHLORIDE 0.9% 500 ML ONE (11:03)
[2024-03-21 11:25] LABS: AST/SGOT 18 U/L (15-37); Albumin 2.9 g/dL (3.4-5.0); Albumin/Globulin Ratio 0.8 (1.1-1.8); Alkaline Phosphatase 51 U/L (45-117); Anion Gap 8.9 mEq/L (5.0-15.0); BUN Blood Urea Nitrogen 27 mg/dL (7-18); Bicarbonate 28 mEq/L (21-32); Bilirubin Total 0.4 mg/dL (0.2-1.0); Globulin 3.7 g/dL (2.3-3.5); Glomerular Filtration Rate 85 ml/min (=/>90); Glucose Level 123 mg/dL (74-106); HDL Cholesterol 30 mg/dL (40-60); LDL Cholesterol, Calculated 62 mg/dL (<130); LDL Cholesterol,Calc NonReport 62; Potassium 3.9 mEq/L (3.5-5.1); Protein, Total 6.6 g/dL (6.4-8.2); Sodium Level 139 mEq/L (136-145)
[2024-03-21 11:30] LABS: ALT/SGPT < 14 U/L (13-56)
--- NOTE | 2024-03-21 12:29 | P.PN ---
Subjective Date of Service: 03/21/24 Chief Complaint: Chest pain Subjective: No new changes, No C/O voiced, Tolerating diet, Ambulating, Improving Review of Systems 10-point ROS is otherwise unremarkable Physical Examination - Vital Signs Temperature: 96.9 F Blood Pressure: 141/66 Pulse: 55 Respirations: 16 Pulse Ox (%): 96 - Physical Exam General: Alert, In no apparent distress HEENT: Atraumatic, PERRLA, EOMI Neck: Supple, JVD not distended Respiratory: Clear to auscultation bilaterally, Normal air movement Cardiovascular: Regular rate/rhythm, Normal S1 S2 Gastrointestinal: Normal bowel sounds, No tenderness Musculoskeletal: No tenderness Integumentary: No rashes Neurological: Normal speech, Normal tone, Normal affect Lymphatics: No axilla or inguinal lymphadenopathy - Studies Medications List Reviewed: Yes Assessment And Plan - Current Problems (Diagnosis) (1) Chest pain Onset Date: 03/28/17 Current Visit: No Status: Acute Plan: Patient is s/p coronary angiogram with PCI of LAD with [employer] KE[facility] continue ASA, Plavix and Lipitor. (2) Hypertension Current Visit: No Status: Chronic Plan: start patient on Coreg 3.125 mg po BID Qualifiers: Hypertension type: primary hypertension Qualified Code(s): I10 - Essential (primary) hypertension (3) Hyperlipidemia Onset Date: 01/05/18 Current Visit: No Status: Chronic Plan: Continue Lipitor add fenofibrate 40 mg tablet daily Qualifiers:
[2024-03-21 14:59] VITALS: O2SAT 97
[2024-03-21] MEDS: INSULIN REGULAR (HUMAN) 100 UNIT/ML SQ SCH (15:34)
--- NOTE | 2024-03-21 15:56 | P.PN ---
Subjective Date of Service: 03/21/24 Chief Complaint: Chest pain Pt is resting comfortbly in bed. She is waiting for cardiac cath. Pt denies any chest pain. No complaints overnight. Review of Systems General: Unremarkable Eyes: Unremarkable ENT: Unremarkable Respiratory: Unremarkable Cardiovascular: Unremarkable Gastrointestinal: Unremarkable Genitourinary: Unremarkable Musculoskeletal: Unremarkable Integumentary: Unremarkable Neurological: Unremarkable Lymphatics: Unremarkable Physical Examination - Vital Signs Temperature: 96.9 F Blood Pressure: 102/46 Pulse: 64 Respirations: 16 Pulse Ox (%): 96 - Physical Exam General: Alert, In no apparent distress, Oriented x3 HEENT: Atraumatic, Normocephalic, PERRLA Neck: Supple, 2+ carotid pulse no bruit Respiratory: Clear to auscultation bilaterally, Normal air movement Cardiovascular: No edema, Normal pulses, Regular rate/rhythm, Normal S1 S2 Capillary refill: <2 Seconds Gastrointestinal: Normal bowel sounds, Soft and benign, Non-distended Musculoskeletal: No clubbing, No swelling, No contractures Integumentary: No rashes, No breakdown, No significant lesion Neurological: Normal speech, Normal strength at 5/5 x4 extr, Normal tone, Sensation intact Lymphatics: No axilla or inguinal lymphadenopathy - Studies Medications List Reviewed: Yes Assessment And Plan - Plan Chest pain: Will r/o ACS. troponin is 12 <- 15. Pt has not been able to do aniogram on outpt. Cardiology did cardiac cath today and placed stent to LAD. Continue aspirin, plavix and atorvastatin. Hx of CHF: Will continue lasix, strict I/O and daily weight. Depression and anxiety: Will continue home med DM II: Continue accuchek, SSI and ADA diet. Htn: Continue coreg HLD: statin Hypothyroidism: synthroid Obesity: Pt was advised to lose weight. DVT ppx: SCD Code: full
[2024-03-21] MEDS: MELATONIN 5 MG TABLET PO PRN (20:23)
[2024-03-21] MEDS: carvediloL 6.25 MG TAB PO SCH (20:24)
--- NOTE | 2024-03-21 21:01 | P.DS ---
Admission Date: 03/20/24 Discharge Date: 03/22/24 Reason for Admission: Chest pain Consultations: Dr. Franco Procedures: [facility] with PCI of LAD Brief History of Present Illness: 68-year-old female with past medical history of HTN/DM/sleep apnea/diastolic CHF/hypothyroidism who presented to the hospital today because of complaint of chest pressure. She states chest pain has been intermittent since the last couple of weeks. She was seen by her cardiology Dr. Franco and had a stress test done which was reportedly abnormal. Result not found in system today. She states she was told to come in to discuss possible cardiac cath. Chest pain continue and recalled again today. Symptoms was more worse today. Consist more of chest pressure nonradiating. Not associate nausea or vomiting. She presented to the ED because of worsening symptoms. Review of her record shows she had a cardiac cath in [address] Hinson with apparently normal coronaries at the time. On arrival in the ED vital signs were stable nontachycardic, satting well on room air, EKG shows left bundle branch block, no previous to compare, initial set of cardiac enzymes were negative. Chest x-ray shows no acute infiltrate. ED provider requesting admission for further workup for chest pain. Hospital Course: Ms. Liu did well over the course of her hospitalization. She underwent cardiac cath with PCI of the LAD on 03/21/24. She will continue aspirin, Plavix, Lipitor, add Coreg 3.125 mg p.o. twice daily and fenofibrate 40 mg p.o. daily. She should follow-up with Dr. Franco in 1 to 2 weeks <Lina Restrepo - Last Filed: 03/22/24 08:04> Admission Date: 03/20/24 Discharge Date: 03/22/24 Hospital Course: Pt seen and examined. I agree with the note by the MEDICAL CHIEF TECHNICIAN. Cardiology placed stent to LAD. Continue aspirin, plavix and atorvastatin. Ok to discharge pt. <Armando Ferrara - Last Filed: 03/22/24 17:51> Disposition: ROUTINE DISCHARGE Discharge Condition: GOOD Vital Signs/Physical Exam: Temp Pulse Resp BP Pulse Ox 97.4 F 64 20 121/59 L 97 03/21/24 16:00 03/21/24 20:24 03/21/24 16:00 03/21/24 20:24 03/21/24 16:00 General: Alert, In no apparent distress, Oriented x3 HEENT: Atraumatic, Normocephalic Neck: Supple Respiratory: Normal air movement Cardiovascular: Normal pulses, Regular rate/rhythm Capillary refill: <2 Seconds Gastrointestinal: Soft and benign Musculoskeletal: No clubbing Integumentary: No rashes Neurological: Normal speech, Normal affect Lymphatics: No axilla or inguinal lymphadenopathy External genitalia: Deferred Rectal: Deferred Laboratory Data at Discharge: WBC 6.80 thou/uL (4.3-10.9) 03/21/24 07:45 Hgb 12.0 g/dL (12.0-15.0) 03/21/24 07:45 Hct 37.0 % (36.0-45.0) 03/21/24 07:45 Plt Count 342 thou/uL (152-406) 03/21/24 07:45 Sodium 139 mEq/L (136-145) 03/21/24 10:45 Potassium 3.9 mEq/L (3.5-5.1) 03/21/24 10:45 BUN 27 mg/dL (7-18) H 03/21/24 10:45 Creatinine 0.76 mg/dL (0.55-1.02) 03/21/24 10:45 Glucose 123 mg/dL (74-106) H 03/21/24 10:45 Magnesium 2.5 mg/dL (1.6-2.4) H 03/20/24 02:13 Total Bilirubin 0.4 mg/dL (0.2-1.0) 03/21/24 10:45 AST 18 U/L (15-37) 03/21/24 10:45 ALT < 14 U/L (13-56) 03/21/24 10:45 Alkaline Phosphatase 51 U/L (45-117) 03/21/24 10:45 Triglycerides 299 mg/dL (<150) H 03/21/24 10:45 Cholesterol 152 mg/dL (<200) 03/21/24 10:45 HDL Cholesterol 30 mg/dL (40-60) L 03/21/24 10:45 Cholesterol/HDL Ratio 5.07 03/21/24 10:45 <Restrepo,Lina Valentín - Last Filed: 03/22/24 08:04> Vital Signs/Physical Exam: Temp Pulse Resp BP Pulse Ox 97.0 F 61 20 95/54 L 96 03/22/24 10:09 03/22/24 10:09 03/22/24 10:09 03/22/24 10:09 03/22/24 10:09 Laboratory Data at Discharge: WBC 6.80 thou/uL (4.3-10.9) 03/21/24 07:45 Hgb 12.0 g/dL (12.0-15.0) 03/21/24 07:45 Hct 37.0 % (36.0-45.0) 03/21/24 07:45 Plt Count 342 thou/uL (152-406) 03/21/24 07:45 Sodium 139 mEq/L (136-145) 03/21/24 10:45 Potassium 3.9 mEq/L (3.5-5.1) 03/21/24 10:45 BUN 27 mg/dL (7-18) H 03/21/24 10:45 Creatinine 0.76 mg/dL (0.55-1.02) 03/21/24 10:45 Glucose 123 mg/dL (74-106) H 03/21/24 10:45 Magnesium 2.5 mg/dL (1.6-2.4) H 03/20/24 02:13 Total Bilirubin 0.4 mg/dL (0.2-1.0) 03/21/24 10:45 AST 18 U/L (15-37) 03/21/24 10:45 ALT < 14 U/L (13-56) 03/21/24 10:45 Alkaline Phosphatase 51 U/L (45-117) 03/21/24 10:45 Triglycerides 299 mg/dL (<150) H 03/21/24 10:45 Cholesterol 152 mg/dL (<200) 03/21/24 10:45 HDL Cholesterol 30 mg/dL (40-60) L 03/21/24 10:45 Cholesterol/HDL Ratio 5.07 03/21/24 10:45 <Armando Ferrara C - Last Filed: 03/22/24 17:51> Diet: AHA Activity: Ad joe <Restrepo,Lina Valentín - Last Filed: 03/22/24 08:04> <Rico Ferrarauchukbaljinder C - Last Filed: 03/22/24 17:51> Home Medications: Celecoxib [Celebrex] 1 tab PO DAILY 03/30/23 Clopidogrel Bisulfate [Plavix*] 1 tab PO DAILY 03/30/23 Divalproex Sodium [Divalproex Sodium ER] 2 tab PO BID 03/30/23 Empagliflozin [Jardiance] 1 tab PO DAILY 03/30/23 Ergocalciferol (Vitamin D2) [Vitamin D 50,000 Unit Cap] 1 tab PO FR@0900 Furosemide 1 tab PO DAILY 03/30/23 Gabapentin 1 tab PO TID 03/30/23 Potassium Oral Tab [Klor-Con 10 mEq Tab*] 20 meq PO DAILY 03/30/23 Trazodone [Desyrel*] 1 tab PO BEDTIME 03/30/23 glipiZIDE [Glipizide] 1 tab PO DAILY 03/30/23 Famotidine 20 mg PO BEDTIME 03/20/24 Oxybutynin Chloride [Oxybutynin Chloride ER] 10 mg PO DAILY 03/20/24 Venlafaxine HCl [Effexor XR] 150 mg PO DAILY 03/20/24 Aspirin [Aspirin EC 81 MG] 81 mg PO DAILY #90 tab 03/21/24 Atorvastatin Calcium [Lipitor] 40 mg PO DAILY #90 tab 03/21/24 Famotidine [Pepcid*] 20 mg PO DAILY tab 03/21/24 Fenofibrate,Micronized [Fenofibrate] 40 mg PO DAILY #90 tab 03/21/24 Levothyroxine [Synthroid*] 0.112 mg PO ACB #60 tab 03/21/24 Melatonin 10 mg PO BEDTIME PRN PRN 03/21/24 Potassium Oral Tab [Klor-Con 10 mEq Tab*] 20 meq PO DAILY tab 03/21/24 Trazodone [Desyrel*] 50 mg PO BEDTIME 03/21/24 Vitamin D [Drisdol*] 50,000 unit PO FR@0900 cap 03/21/24 carvediloL [Coreg] 3.125 mg PO BID #120 tab 03/21/24 New Medications: Aspirin [Aspirin EC 81 MG] 81 mg PO DAILY #90 tab carvediloL [Coreg] 3.125 mg PO BID #120 tab Fenofibrate,Micronized [Fenofibrate] 40 mg PO DAILY #90 tab Atorvastatin Calcium [Lipitor] 40 mg PO DAILY #90 tab Levothyroxine [Synthroid*] 0.112 mg PO ACB #60 tab Physician Discharge Instructions: Okay to DC IV and DC home Follow-up with primary care provider in 1 to 2 weeks Follow-up with cardiology in 1 to 2-weeks Please call the inpatient unit for any questions or concerns regarding hospital stay Return to the ER for worsening symptoms Ms. Liu did well over the course of her hospitalization. She underwent cardiac cath with PCI of the LAD on 03/21/24. She will continue aspirin, Plavix, Lipitor, add (decreased dose) Coreg 3.125 mg p.o. twice daily and fenofibrate 40 mg p.o. daily. She should follow-up with Dr. Franco in 1 to 2 weeks Followup: Zamzam Robles, [Primary Care Provider] -
[2024-03-21 21:26] VITALS: TEMP 97
--- NOTE | 2024-03-21 22:29 | OP ---
Date of Procedure: 03/21/2024 Surgeon: Dinesh Franco Procedures Performed: 1.Left heart catheterization. 2.Selective coronary angiogram. 3.PCI of the LAD with Synergy 3.0 x 24 mm drug-eluting stent. Indication For Procedure: Unstable angina, abnormal stress test. Complication: None. Access: Right radial, closed by TR band. Estimated Blood Loss: Less than 50 cc. Sedation Time: 30 minutes with 2 of Versed and 50 of fentanyl. Description Of Procedure: After risks, benefits, and alternatives were explained to the patient, the patient agreed to proceed with the procedure and signed informed consent. The patient was brought [facility] to the oven laborer, prepped and draped in sterile fashion. Time-out was performed. Sedation was ad ministered. Right radial access, ultrasound-guided micropuncture technique was obtained with a 6-Kenny nch sheath. Next, [place] 4 catheter was advanced over J-wire to the LV cavity. LVEDP was obtained. Pullback did not show any gradient. The catheter was exchanged for an EBU 3.0 mm guide. Heparin was administered. ACT was therapeutic. Runthrough wire into the LAD, pre-dilated mid LAD lesions with an NC 2.5 mm balloon. Next, Synergy 3.0 x 24 mm drug-eluting stent placed across the lesion. This w as postdilated with an NC 3.5 mm balloon. Final angiogram shows FANTASMA-3 flow. Wire was removed. Sunny de was removed over a J-wire and sheath was removed and TR band was applied and hemostasis was achiev ed. The patient was moved back to Recovery in stable condition. Findings: 1.Left main: Absent, separate ostia. 2.LAD: Proximal 20% disease and mid 70% disease, status post PCI with Synergy 3.0 x 24 mm drug-elut ing stent, distal mild LI. 3.Left circ: Large, dominant, mild luminal irregularities. 4.RCA: Small nondominant mild luminal irregularities. 5.LVEDP: 5 mmHg. Assessment: 1.Significant mid left anterior descending disease, status post percutaneous coronary intervention w ith Synergy 3.0 x 24 mm drug-eluting stent. 2.Normal filling pressures. Plan: 1.Aspirin 325 x1 was given in the oven laborer, continue 81 mg daily. 2.Plavix 300 x1 was given in the oven laborer, continue Plavix 75 mg daily. 3.Continue aggressive medical treatment for CAD. NADRES/CHIQUITA Voice ID: [id number] Report ID: [id number]
[2024-03-22 04:46] VITALS: BMI 41.1
[2024-03-22 06:02] VITALS: BP 95/54
[2024-03-22] MEDS: NA CHLORIDE 0.9% 500 ML IV ONE (08:07)
[2024-03-22] MEDS: POTASSIUM CL SA 10 MEQ TAB PO SCH (08:08)
[2024-03-22] MEDS: ASPIRIN 81 MG CHEWABLE TABLET PO SCH (08:08)
[2024-03-22] MEDS: OXYBUTYNIN ER 5 MG TAB PO SCH (08:09)
[2024-03-22] MEDS: ATORVASTATIN 40 MG TAB PO SCH (08:09)
[2024-03-22] MEDS: FENOFIBRATE MICRONIZED 200 MG PO SCH (08:10)
[2024-03-22] MEDS: FUROSEMIDE 20 MG TABLET PO SCH (08:10)
[2024-03-22] MEDS ORDERED: HOME MED 1 EA UNK (Oxybutynin Chloride [Oxybutynin Chloride Er] 10 MG Tab.Er.24) PO SCH (09:00)
[2024-03-22] MEDS: carvediloL 3.125 MG TAB PO SCH (09:34)
--- NOTE | 2024-03-22 10:09 | P.PN ---
Subjective Date of Service: 03/22/24 Chief Complaint: Chest pain Subjective: No new changes, No C/O voiced, Tolerating diet, Ambulating, Improving Review of Systems 10-point ROS is otherwise unremarkable Physical Examination - Vital Signs Temperature: 97.0 F Blood Pressure: 95/54 Pulse: 61 Respirations: 20 Pulse Ox (%): 96 - Physical Exam General: Alert, In no apparent distress HEENT: Atraumatic, PERRLA, EOMI Neck: Supple, JVD not distended Respiratory: Clear to auscultation bilaterally, Normal air movement Cardiovascular: Regular rate/rhythm, Normal S1 S2 Gastrointestinal: Normal bowel sounds, No tenderness Musculoskeletal: No tenderness Integumentary: No rashes Neurological: Normal speech, Normal tone, Normal affect Lymphatics: No axilla or inguinal lymphadenopathy - Studies Medications List Reviewed: Yes Assessment And Plan - Current Problems (Diagnosis) (1) Chest pain Onset Date: 03/28/17 Current Visit: No Status: Acute Plan: Patient is s/p coronary angiogram with PCI of LAD with Synergy KELLY continue ASA, Plavix and Lipitor. (2) Hypertension Current Visit: No Status: Chronic Plan: start patient on Coreg 3.125 mg po BID Qualifiers: Hypertension type: primary hypertension Qualified Code(s): I10 - Essential (primary) hypertension (3) Hyperlipidemia Onset Date: 01/05/18 Current Visit: No Status: Chronic Plan: Continue Lipitor add fenofibrate 40 mg tablet daily Qualifiers:
[2024-03-23] MEDS ORDERED: DRISDOL (VITAMIN D=ERGOCALCIFEROL) 50000 UNIT CAP PO SCH (09:00)
== END 2024-03-22 10:50 | disposition home or self-care (01) | DRG 322 ==
LOC: ER 22:42 → ERHOLD 03-20 04:32 → 4TH 03-20 16:37 → OBSVTOIN 03-20 17:42
PROVIDERS: ADMIT Internal Medicine; ATTEND Hospitalist
PROC: 027034Z Dilation of Coronary Artery, One Artery with Drug-eluting Intraluminal Device, Percutaneous Approach (ICD-10-PCS; principal; 2024-03-21)
PROC: 4A023N7 Measurement of Cardiac Sampling and Pressure, Left Heart, Percutaneous Approach (ICD-10-PCS; 2024-03-21)
PROC: B2111ZZ Fluoroscopy of Multiple Coronary Arteries using Low Osmolar Contrast (ICD-10-PCS; 2024-03-21)
DX: R07.89 Other chest pain (principal); I50.32 Chronic diastolic (congestive) heart failure; Z68.41 Body mass index [BMI] 40.0-44.9, adult; E66.01 Morbid (severe) obesity due to excess calories; I11.0 Hypertensive heart disease with heart failure; E11.9 Type 2 diabetes mellitus without complications; E78.5 Hyperlipidemia, unspecified; F41.8 Other specified anxiety disorders; E03.9 Hypothyroidism, unspecified; K21.9 Gastro-esophageal reflux disease without esophagitis; Z60.2 Problems related to living alone; Z90.3 Acquired absence of stomach [part of]; Z79.02 Long term (current) use of antithrombotics/antiplatelets; Z79.84 Long term (current) use of oral hypoglycemic drugs; Z90.49 Acquired absence of other specified parts of digestive tract; Z79.890 Hormone replacement therapy; Z79.899 Other long term (current) drug therapy; Z90.710 Acquired absence of both cervix and uterus
CPT/HCPCS: 36415; 71045; 76937; 80048; 80053; 80061; 80076; 82947; 83735; 83880; 84484; 85025; 85347; 93005; 93458; 99285; C1725; C1893; C9600; G0378; J0461; J1644; J1650; J2001; J2250; J2270; J3010; J7040; Q9967

== ENCOUNTER 2024-05-29 19:51 | Emergency (ER) | payer OTHER ==
[2024-05-29] MEDS ORDERED: methocarbamoL 750 MG TAB ONE (20:23)
[2024-05-29] MEDS ORDERED: IBUPROFEN 400 MG TAB ONE (20:23)
[2024-05-29] MEDS ORDERED: TRAMADOL HCL 50 MG TAB ONE (20:24)
--- NOTE | 2024-05-29 21:53 | RAD REPORT ---
EXAM DESCRIPTION: RAD - Humerus Left - 05/29/2024 9:25 pm CLINICAL HISTORY: PAIN COMPARISON: Humerus Left dated 01/04/2016 TECHNIQUE: Left Humerus, 3 views. FINDINGS: No fracture is identified. There is no dislocation or periosteal reaction noted. No forei gn body or other soft tissue abnormality. IMPRESSION: Negative left humerus examination.
--- NOTE | 2024-05-29 21:53 | RAD REPORT ---
EXAM DESCRIPTION: RAD - Shoulder Left 2 View - 05/29/2024 9:25 pm CLINICAL HISTORY: left shoulder pain COMPARISON: Shoulder Left 2 View dated 01/04/2016 TECHNIQUE: Internal and external rotation views of the left shoulder were obtained. FINDINGS: There is no fracture or dislocation. AC joint shows moderate degenerative changes. No acut e or suspicious findings. IMPRESSION: No acute findings. Moderate left AC joint degenerative changes.
--- NOTE | 2024-05-29 21:53 | RAD REPORT ---
EXAM DESCRIPTION: RADChest Single View05/29/2024 9:25 pm CLINICAL HISTORY: left shoulderpain COMPARISON: Chest Single View dated 03/20/2024; Chest Single View dated 04/02/2023; Chest Single View d ated 03/30/2023; Chest Single View dated 03/28/2023 TECHNIQUE: Portable AP view of the chest. FINDINGS: The lungs are clear. No pneumothorax or effusion. The cardiomediastinal contours are unre markable. IMPRESSION: No acute cardiopulmonary process.
--- NOTE | 2024-05-29 23:17 | ER ---
Nurse's Notes [facility] Name: Lara Liu Age: 68 yrs Sex: Female : 1955 Arrival Date: 05/29/2024 Time: 19:51 Bed 7 Private MD: Diagnosis: Pain in left shoulder;Left shoulder contusion Presentation: 05/29 20:17 Chief complaint: Patient states: she has left shoulder pain that started Tuesday ap3 05/26/24 after a fall. patient reports that the pain radiates into her left elbow. patient states that her current pain level is a 8/10 on the pain scale. Coronavirus screen: At this time, the client does not indicate any symptoms associated with coronavirus-19. Ebola Screen: No symptoms or risks identified at this time. Initial Sepsis Screen: Does the patient meet any 2 criteria? No. Patient's initial sepsis screen is negative. Does the patient have a suspected source of infection? No. Patient's initial sepsis screen is negative. Risk Assessment: Do you want to hurt yourself or someone else?. Onset of symptoms was May 26, 2024. 20:17 Method Of Arrival: Ambulatory ap3 20:17 Acuity: CRIS 4 ap3 Triage Assessment: 20:20 General: Appears in no apparent distress. Behavior is calm, cooperative, appropriate ap3 for age. Pain: Complains of pain in posterior aspect of left shoulder and anterior aspect of left shoulder Pain radiates to left antecubital area and left elbow Pain currently is 8 out of 10 on a pain scale. Pain began gradually, 3 days ago. Neuro: Level of Consciousness is awake, alert, obeys commands, Oriented to person, place, time, situation, Appropriate for age Speech is normal. Cardiovascular: Patient's skin is warm and dry. Respiratory: Airway is patent Respiratory effort is even, unlabored, Respiratory pattern is regular, symmetrical. Historical: - Allergies: 20:19 No Known Allergies; ap3 - PMHx: 20:19 CHF; Diabetes - NIDDM; Hyperlipidemia; Hypertension; Hypothyroidism; Sleep Apnea; ap3 - PSHx: 20:20 Cholecystectomy; Gastric Bypass; hysterectomy; Neck sx; ap3 - Immunization history:: Client reports receiving the 2nd dose of the Covid vaccine. - Infectious Disease History:: Denies. - Social history:: Smoking status: Patient denies any tobacco usage or history of. Screenin:15 [facility] ED Fall Risk Assessment (Adult) History of falling in the last 3 months, al5 including since admission Yes- single mechanical fall (1 pt) Confusion or Disorientation No (0 pts) Intoxicated or Sedated No (0 pts) Impaired Gait Yes (1 pt) Mobility Assist Device Used No (0 pt) Altered Elimination No (0 pt) Score/Fall Risk Level 0 - 2 = Low Risk Maintained a safe environment, Educated pt \T\ family on fall prevention, incl call for assistance when getting out of bed, Hourly rounding (assess needs \T\ fall precautionary measures) done. Abuse screen: Denies threats or abuse. Denies injuries from another. Nutritional screening: No deficits noted. Tuberculosis screening: No symptoms or risk factors identified. Assessment: 20:16 General: Appears in no apparent distress. Behavior is calm, cooperative. Pain: al5 Complains of pain in anterior aspect of left shoulder and posterior aspect of left shoulder. Neuro: Level of Consciousness is awake, alert, obeys commands, Oriented to person, place, time, situation. Cardiovascular: Patient's skin is warm and dry. Respiratory: Airway is patent Respiratory effort is even, unlabored, Respiratory pattern is regular, symmetrical. GI: No signs and/or symptoms were reported involving the gastrointestinal system. : No signs and/or symptoms were reported regarding the genitourinary system. EENT: No signs and/or symptoms were reported regarding the EENT system. Derm: Skin is intact, Skin is pink, warm \T\ dry. normal. Musculoskeletal: Reports pain in anterior aspect of left shoulder and posterior aspect of left shoulder since tuesday. Injury Description: fall, hit L shoulder. 21:39 Reassessment: Patient appears in no apparent distress at this time. No changes from al5 previously documented assessment. Patient and/or family updated on plan of care and expected duration. Pain level reassessed. Patient is alert, oriented x 3, equal unlabored respirations, skin warm/dry/pink. pain did decrease with pain medication, x-ray aggravated the pain. educated patient that medication still has time to take effect, patient verbalized understanding and states she will take a nap until x-ray results come in. patient resting comfortably at this time.. 22:50 Reassessment: Patient appears in no apparent distress at this time. No changes from al5 previously documented assessment. Patient and/or family updated on plan of care and expected duration. Pain level reassessed. Patient is alert, oriented x 3, equal unlabored respirations, skin warm/dry/pink. Vital Signs: 20:15 BP 131 / 76; Pulse 71; Resp 16; Pulse Ox 95% on R/A; al5 20:17 BP 161 / 86; Pulse 78; Resp 17; Temp 98.3; Pulse Ox 100% ; Weight 108.86 kg; Height 5 ap3 ft. 4 in. ; Pain 8/10; 20:30 BP 142 / 75; Pulse 72; Resp 18; Pulse Ox 96% on R/A; al5 21:00 BP 142 / 93; Pulse 68; Resp 18; Pulse Ox 96% on R/A; al5 21:30 BP 135 / 77; Pulse 57; Resp 18; Pulse Ox 95% on R/A; al5 22:00 BP 150 / 85; Pulse 67; Resp 18; Pulse Ox 95% on R/A; al5 22:30 BP 141 / 74; Pulse 66; Resp 18; Pulse Ox 95% on R/A; al5 23:30 BP 141 / 68; Pulse 68; Resp 18; Pulse Ox 95% on R/A; al5 20:17 Body Mass Index 41.20 (108.86 kg, 162.56 cm) ap3 20:17 Pain Scale: Adult ap3 ED Course: 19:55 Patient arrived in ED. gm2 20:01 Joshua Gonzales MD is Attending Physician. sp4 20:06 Shana Parra, LUZ ELENA is Primary Nurse. al5 20:15 No provider procedures requiring assistance completed. al5 20:16 Patient has correct armband on for positive identification. Bed in low position. Call al5 light in reach. Side rails up X 1. Provided Education on: processes and procedures. 20:19 Triage completed. ap3 20:21 Arm band placed on right wrist. ap3 21:27 Chest Single View XRAY In Process Unspecified. EDMS 21:27 Shoulder Left (2 View) XRAY In Process Unspecified. EDMS 21:27 Humerus Left XRAY In Process Unspecified. EDMS 23:16 Fnin Lambert MD is Referral Physician. sp4 23:31 Patient did not have IV access during this emergency room visit. al5 Administered Medications: 20:26 Drug: traMADol PO 100 mg PO once Route: PO; al5 21:38 Follow up: Response: No adverse reaction; Pain is decreased al5 20:26 Drug: Methocarbamol PO 750 mg PO once Route: PO; al5 21:38 Follow up: Response: No adverse reaction; Pain is decreased al5 20:26 Drug: Ibuprofen PO 400 mg PO once Route: PO; al5 21:38 Follow up: Response: No adverse reaction; Pain is decreased al5 21:38 Follow up: Response: No adverse reaction; Pain is decreased al5 Medication: 20:18 VIS not applicable for this client. al5 Outcome: 23:17 Discharge ordered by . sp4 23:31 Discharged to home ambulatory, al5 23:31 Condition: good 23:31 Discharge instructions given to patient, Instructed on discharge instructions, follow up and referral plans. medication usage, Demonstrated understanding of instructions, follow-up care, medications, Prescriptions given X 2, 23:32 Patient left the ED. al5 Signatures: Dispatcher [employer] EDMS Shana Miller, RN RN ap3 Joshua Gonzales MD MD sp4 Mikayla Singh 2 Shana Parra RN RN al5 Corrections: (The following items were deleted from the chart) 22:48 22:47 IV discontinued, intact, bleeding controlled, No redness/swelling at site. al5 Pressure dressing applied, al5 22:48 22:47 Discharged to home ambulatory, al5 al5 22:48 22:47 Condition: good al5 al5 22:48 22:47 Discharge instructions given to patient, Instructed on discharge instructions, al5 follow up and referral plans. medication usage, Demonstrated understanding of instructions, follow-up care, medications, Prescriptions given X 1, al5
--- NOTE | 2024-05-29 23:17 | EDPHYS ---
Physician Documentation [facility] Name: Lara Liu Age: 68 yrs Sex: Female : 1955 Arrival Date: 05/29/2024 Time: 19:51 Bed 7 Private MD: ED Physician Joshua Gonzales HPI: 05/29 20:01 This 68 yrs old Female presents to ER via Unassigned with complaints of sp4 Shoulder Pain. Historical: - Allergies: 20:19 No Known Allergies; ap3 - PMHx: 20:19 CHF; Diabetes - NIDDM; Hyperlipidemia; Hypertension; Hypothyroidism; Sleep Apnea; ap3 - PSHx: 20:20 Cholecystectomy; Gastric Bypass; hysterectomy; Neck sx; ap3 - Immunization history:: Client reports receiving the 2nd dose of the Covid vaccine. - Infectious Disease History:: Denies. - Social history:: Smoking status: Patient denies any tobacco usage or history of. Vital Signs: 20:15 BP 131 / 76; Pulse 71; Resp 16; Pulse Ox 95% on R/A; al5 20:17 BP 161 / 86; Pulse 78; Resp 17; Temp 98.3; Pulse Ox 100% ; Weight 108.86 kg; Height 5 ap3 ft. 4 in. ; Pain 8/10; 20:30 BP 142 / 75; Pulse 72; Resp 18; Pulse Ox 96% on R/A; al5 21:00 BP 142 / 93; Pulse 68; Resp 18; Pulse Ox 96% on R/A; al5 21:30 BP 135 / 77; Pulse 57; Resp 18; Pulse Ox 95% on R/A; al5 22:00 BP 150 / 85; Pulse 67; Resp 18; Pulse Ox 95% on R/A; al5 22:30 BP 141 / 74; Pulse 66; Resp 18; Pulse Ox 95% on R/A; al5 23:30 BP 141 / 68; Pulse 68; Resp 18; Pulse Ox 95% on R/A; al5 20:17 Body Mass Index 41.20 (108.86 kg, 162.56 cm) ap3 20:17 Pain Scale: Adult ap3 MDM: 20:42 Patient medically screened. sp4 23:15 ED course: EXAM DESCRIPTION: RAD - Humerus Left - 05/29/2024 9:25 pm CLINICAL HISTORY: sp4 PAIN COMPARISON: Humerus Left dated 01/04/2016 TECHNIQUE: Left Humerus, 3 views. FINDINGS: No fracture is identified. There is no dislocation or periosteal reaction noted. No foreign body or other soft tissue abnormality. IMPRESSION: Negative left humerus examination. . ED course: EXAM DESCRIPTION: RAD - Shoulder Left 2 View - 05/29/2024 9:25 pm CLINICAL HISTORY: left shoulder pain COMPARISON: Shoulder Left 2 View dated 01/04/2016 TECHNIQUE: Internal and external rotation views of the left shoulder were obtained. FINDINGS: There is no fracture or dislocation. AC joint shows moderate degenerative changes. No acute or suspicious findings. IMPRESSION: No acute findings. Moderate left AC joint degenerative changes.. ED course: EXAM DESCRIPTION: RADChest Single View05/29/2024 9:25 pm CLINICAL HISTORY: left shoulderpain COMPARISON: Chest Single View dated 03/20/2024; Chest Single View dated 04/02/2023; Chest Single View dated 03/30/2023; Chest Single View dated 03/28/2023 TECHNIQUE: Portable AP view of the chest. FINDINGS: The lungs are clear. No pneumothorax or effusion. The cardiomediastinal contours are unremarkable. IMPRESSION: No acute cardiopulmonary process. . 05/29 20:14 Order name: Chest Single View XRAY; Complete Time: 23:00 sp4 05/29 20:15 Order name: Shoulder Left (2 View) XRAY; Complete Time: 23:00 sp4 05/29 20:15 Order name: Humerus Left XRAY; Complete Time: 23:00 sp4 Administered Medications: 20:26 Drug: traMADol PO 100 mg PO once Route: PO; al5 21:38 Follow up: Response: No adverse reaction; Pain is decreased al5 20:26 Drug: Methocarbamol PO 750 mg PO once Route: PO; al5 21:38 Follow up: Response: No adverse reaction; Pain is decreased al5 20:26 Drug: Ibuprofen PO 400 mg PO once Route: PO; al5 21:38 Follow up: Response: No adverse reaction; Pain is decreased al5 21:38 Follow up: Response: No adverse reaction; Pain is decreased al5 Disposition Summary: 05/29/24 23:17 Discharge Ordered Notes: Please see Orthopedist in 1 week for evaluation in the office Location: Home sp4 Problem: new sp4 Symptoms: have improved sp4 Condition: Stable sp4 Diagnosis - Pain in left shoulder sp4 - Left shoulder contusion sp4 Followup: sp4 - With: Finn Lambert MD - When: 7 - 10 days - Reason: Recheck today's complaints Discharge Instructions: - Discharge Summary Sheet sp4 - Musculoskeletal Pain sp4 Forms: - Patient Portal Instructions sp4 Prescriptions: - tramadol 300 mg Oral Tablet, Extended Release 24 hr - take 1 tablet ORAL route every 12 hours PRN pain; 20 tablet; Refills: 0, sp4 Product Selection Permitted - methocarbamol 750 mg Oral tablet - take 2 tablets ORAL route every 6 hours for 2 days PRN muscle soreness; 60 sp4 tablet; Refills: 0, Product Selection Permitted Signatures: Dispatcher [employer] Shana Beaulieu, RN RN ap3 Joshua Gonzales MD MD sp4 Shana Parra RN RN al5 Corrections: (The following items were deleted from the chart) 20:15 20:15 Shoulder Left 2 View+[email or web address] ordered. EDMS EDMS
[2024-05-29 23:41] VITALS: TEMP 98.3
[2024-05-29 23:45] VITALS: O2SAT 95
[2024-05-29 23:50] VITALS: BP 141/68
== END 2024-05-29 23:32 | disposition home or self-care (01) ==
LOC: ER 19:51
DX: S40.012A Contusion of left shoulder, initial encounter (principal)
CPT/HCPCS: 71045

== ENCOUNTER 2024-09-11 09:24 | Emergency (ER) | payer OTHER ==
[2024-09-11 10:33] LABS: Absolute Eosinophils 0.2 K/uL (0-0.5); Absolute Lymphocytes (CBC) 2.6 K/uL (0.7-4.9); Absolute Monocytes 0.4 K/uL (0.1-1.3); Absolute Neutrophil 2.5 K/uL (1.8-8.0); Basophils % 0.4 % (0-1.3); Eosinophils % 3.9 % (0-4.4); Hematocrit 41.6 % (36.0-45.0); Hemoglobin 13.8 g/dL (12.0-15.0); Lymphocytes % 45.4 % (15.3-44.8); MCH 31.3 pg (27.0-35.0); MCHC 33.1 g/dL (32.0-36.0); MCV 94.6 fL (80-100); MPV 7.4 fL (7.6-11.3); Monocytes % 7.1 % (3.3-12.3); Neutrophils % 43.2 % (41.7-73.7); Nucleated Red Blood Cells % 0.2 % (0-0); Platelets 345 thou/uL (152-406); Red Cell Distribution Width 16.2 % (12.1-15.2)
[2024-09-11 10:42] LABS: PT Prothrombin Time 10.6 SECONDS (9.4-12.5); Protime INR 0.94
[2024-09-11 10:54] LABS: Anion Gap 7.9 mEq/L (5.0-15.0); Potassium 3.9 mEq/L (3.5-5.1); Troponin High Sensitivity 18.3 pg/mL (<58.9)
--- NOTE | 2024-09-11 11:10 | RAD REPORT ---
EXAMINATION: ONE VIEW CHEST XR CLINICAL INDICATION: CHEST PAIN TECHNIQUE: Frontal chest projection is submitted. Examination is limited by patient positioning and t echnique. COMPARISON: 05/29/2024 FINDINGS: Mild interstitial prominence can be seen in mild interstitial pulmonary edema. The heart is upper power it of normal in size. No displaced fractures identified. IMPRESSION: Mild CHF is possible.
[2024-09-11] MEDS ORDERED: ASPIRIN 81 MG CHEWABLE TABLET ONE (11:44)
--- NOTE | 2024-09-11 13:14 | ER ---
Nurse's Notes [facility] Name: Lara Liu Age: 68 yrs Sex: Female : 1955 Arrival Date: 09/11/2024 Time: 09:24 Bed 2 Private MD: Diagnosis: Chest pain, unspecified Presentation: 09/11 09:43 Chief complaint: Patient states: sent by Dr. Robles for abnormal EKG, has been having iw chest pain and pain in left arm X 2 weeks. Coronavirus screen: At this time, the client does not indicate any symptoms associated with coronavirus-19. Ebola Screen: No symptoms or risks identified at this time. Initial Sepsis Screen: Does the patient meet any 2 criteria? No. Patient's initial sepsis screen is negative. Does the patient have a suspected source of infection? No. Patient's initial sepsis screen is negative. Risk Assessment: Do you want to hurt yourself or someone else? Patient reports no desire to harm self or others. Onset of symptoms was September 11, 2024. 09:43 Method Of Arrival: Wheelchair iw 09:43 Acuity: CRIS 3 iw Historical: - Allergies: 09:44 shrimp; iw - PMHx: 09:44 CHF; Diabetes - NIDDM; Hyperlipidemia; Hypertension; Hypothyroidism; Sleep Apnea; iw - PSHx: 09:44 Cholecystectomy; Gastric Bypass; hysterectomy; Neck sx; iw - Immunization history:: Adult Immunizations up to date. - Infectious Disease History:: Denies. - Family history:: not pertinent. - Hospitalizations: : No recent hospitalization is reported. - Social history:: Smoking status: unknown. Screenin:54 Abuse screen: Denies threats or abuse. Nutritional screening: No deficits noted. ap3 Tuberculosis screening: No symptoms or risk factors identified. 10:16 [facility] ED Fall Risk Assessment (Adult) History of falling in the last 3 months, kc6 including since admission No falls in past 3 months (0 pts) Confusion or Disorientation No (0 pts) Intoxicated or Sedated No (0 pts) Impaired Gait Yes (1 pt) Mobility Assist Device Used Yes (1 pt) Altered Elimination No (0 pt) Score/Fall Risk Level 0 - 2 = Low Risk Oriented to surroundings, Maintained a safe environment. Assessment: 09:53 General: Appears in no apparent distress. Behavior is calm, cooperative, appropriate ap3 for age. Pain: Complains of pain in left arm Pain began "a few weeks ago". Neuro: Level of Consciousness is awake, alert, obeys commands, Oriented to person, place, time, situation. Cardiovascular: Patient's skin is warm and dry. Respiratory: Airway is patent Respiratory effort is even, unlabored, Respiratory pattern is regular, symmetrical. Vital Signs: 09:43 BP 153 / 94; Pulse 68; Resp 16; Temp 98.1; Pulse Ox 100% on R/A; iw 12:09 BP 152 / 62; Pulse 63; Resp 18; Pulse Ox 100% on R/A; ap3 13:13 BP 140 / 67; Pulse 59; Resp 18; Pulse Ox 100% on R/A; ap3 ED Course: 09:27 Patient arrived in ED. ra3 09:27 Alfredo James MD is Attending Physician. rn 09:44 Triage completed. iw 09:47 Shana Miller, LUZ ELENA is Primary Nurse. ap3 09:54 Patient has correct armband on for positive identification. Bed in low position. Call ap3 light in reach. Side rails up X2. Provided Education on: call light education. Client placed on continuous cardiac and pulse oximetry monitoring. NIBP monitoring applied. produce specialist on. Pulse ox on. NIBP on. 09:58 Door closed. Noise minimized. Warm blanket given. ap3 10:16 Arm band placed on. kc6 10:16 Inserted saline lock: 20 gauge in left antecubital area, using aseptic technique. Blood kc6 collected. Flushed with 10 mL NS. Patient maintains SpO2 saturation greater than 95% on room air. 11:03 XRAY Chest (1 view) In Process Unspecified. EDMS 13:13 Pavan Hinson MD is Referral Physician. rn 13:28 No provider procedures requiring assistance completed. IV discontinued, intact, ap3 bleeding controlled, No redness/swelling at site. Pressure dressing applied. Administered Medications: 12:09 Drug: Aspirin PO Chewable Tablet 324 mg PO once; 81 mg tablets x 4 Route: PO; ap3 13:29 Follow up: Response: No adverse reaction ap3 Medication: 13:28 VIS not applicable for this client. ap3 Outcome: 13:14 Discharge ordered by . rn 13:28 Discharged to home via wheelchair, ap3 13:28 Condition: good 13:28 Discharge instructions given to patient, Instructed on discharge instructions, follow up and referral plans. Demonstrated understanding of instructions, follow-up care, 13:28 Patient left the ED. ap3 Signatures: Dispatcher [employer] Jerica Martin, RN Alfredo Cordova MD MD rn Prokisch, Amanda, RN RN ap3 Gissell Yoon RN RN kc6 Nancy Garcia ra3
--- NOTE | 2024-09-11 13:15 | EDPHYS ---
Physician Documentation [facility] Name: Lara Liu Age: 68 yrs Sex: Female : 1955 Arrival Date: 09/11/2024 Time: 09:24 Bed 2 Private MD: ED Physician Alfredo James HPI: 09/11 10:05 This 68 yrs old Female presents to ER via Wheelchair with complaints of chest pain. rn 10:05 The patient or guardian reports chest pain that is located primarily in the substernal rn area. Onset: 2 week(s) ago. The pain radiates to the left arm. Associated signs and symptoms: Pertinent positives: shortness of breath, Pertinent negatives: abdominal pain, cough, diaphoresis, lower extremity pain, lower extremity swelling, palpitations, syncope, vomiting. The chest pain is described as a pressure. Duration: The patient or guardian reports multiple episodes, that are intermittent. Modifying factors: The symptoms are alleviated by nothing. the symptoms are aggravated by exertion. Severity of pain: At its worst the pain was moderate in the emergency department the pain has improved. The patient has experienced similar episodes in the past. Patient sent by PCP for left/substernal chest pressure that radiates to the left arm. Reports increased shortness of breath with exertion. Had stent to LAD 5 months ago.. Historical: - Allergies: 09:44 shrimp; iw - PMHx: :44 CHF; Diabetes - NIDDM; Hyperlipidemia; Hypertension; Hypothyroidism; Sleep Apnea; iw - PSHx: :44 Cholecystectomy; Gastric Bypass; hysterectomy; Neck sx; iw - Immunization history:: Adult Immunizations up to date. - Infectious Disease History:: Denies. - Family history:: not pertinent. - Hospitalizations: : No recent hospitalization is reported. - Social history:: Smoking status: unknown. ROS: 10:05 Constitutional: Negative for fever, chills, and weight loss, Cardiovascular: Positive rn for chest pain Respiratory: Positive for shortness of breath with exertion Abdomen/GI: Negative for abdominal pain, nausea, vomiting, diarrhea, and constipation, MS/Extremity: Negative for injury and deformity, Neuro: Negative for headache, weakness, numbness, tingling, and seizure, Exam: 10:05 Constitutional: This is a well developed, well nourished patient who is awake, alert, rn and in no acute distress. Cardiovascular: Regular rate and rhythm. No pulse deficits. Respiratory: No increased work of breathing, no retractions or nasal flaring. Abdomen/GI: Soft, non-tender MS/ Extremity: Pulses equal, no cyanosis. Neurovascular intact. Full, normal range of motion. Equal circumference. Neuro: Awake and alert, GCS 15 14:32 ECG was reviewed by the Attending Physician. rn Vital Signs: 09:43 BP 153 / 94; Pulse 68; Resp 16; Temp 98.1; Pulse Ox 100% on R/A; iw 12:09 BP 152 / 62; Pulse 63; Resp 18; Pulse Ox 100% on R/A; ap3 13:13 BP 140 / 67; Pulse 59; Resp 18; Pulse Ox 100% on R/A; ap3 MDM: 09:27 Medical Screening Exam initiated rn 12:17 Differential diagnosis: acute myocardial infarction, acute pericarditis, anxiety, rn coronary artery disease chest wall pain, costochondritis, esophagitis, gastritis, gastroesophageal reflux disease (GERD), pleurisy, pneumothorax, stable angina. HEART Score:. 12:38 Refusal of service: The patient/guardian displays adequate decision making capability rn and despite a detailed discussion of alternatives, benefits, risks, and consequences refuses: Admission to the hospital for further work-up and treatment. ED course: Recommended admission given history, last stent was 5 months ago to LAD, now having dyspnea and chest pain that radiates to the left arm. Patient refuses admission. She states that she wants to go home and follow-up as an outpatient. We convinced her to get repeat troponin at least and will reevaluate.. 13:12 The patient was given aspirin in the Emergency Department. Data reviewed: vital signs, rn nurses notes, lab test result(s), EKG, radiologic studies, plain films, and as a result, I will admit patient. 13:12 Counseling: I had a detailed discussion with the patient and/or guardian regarding the rn historical points, exam findings, and any diagnostic results supporting the discharge/admit diagnosis, lab results, radiology results, the need for further work-up and treatment in the hospital. ED course: Repeat troponin negative. Patient states wants to go home due to insurance reasons and financial concerns. She has appointment at [facility] this afternoon with Dr. Franco. Will discharge per her wishes and given return precautions.. 09/11 09:28 Order name: Basic Metabolic Panel; Complete Time: 11: rn 09/11 09:28 Order name: CBC with Diff; Complete Time: 11: rn 09/11 09:28 Order name: NT PRO-BNP; Complete Time: 11:02 rn 09/11 09:28 Order name: PT-INR; Complete Time: 11: rn 09/11 09:28 Order name: Troponin HS; Complete Time: 11: rn 09/11 12:33 Order name: Troponin High Sensitivity; Complete Time: 13:02 ap3 09/11 09:28 Order name: XRAY Chest (1 view); Complete Time: 11:12 rn 09/11 09:28 Order name: EKG; Complete Time: :29 rn 09/11 09:28 Order name: Cardiac monitoring; Complete Time: 09:53 rn 09/11 09:28 Order name: EKG - Nurse/Tech; Complete Time: 09:53 rn 09/11 09:28 Order name: IV Saline Lock; Complete Time: 10:16 rn 09/11 09:28 Order name: Labs collected and sent; Complete Time: 10:16 rn 09/11 09:28 Order name: O2 Per Protocol; Complete Time: 09:53 rn 09/11 09:28 Order name: O2 Sat Monitoring; Complete Time: :53 rn EC:32 Rate is 67 beats/min. Rhythm is regular. Left axis deviation noted. QRS is positive in rn lead I and negative in lead aVF. QRS interval is normal. QT interval is normal. No Q waves. T waves are Normal. No ST changes noted. Clinical impression: NSR w/ Non-specific ST/T Changes. Interpreted by me. Reviewed by me. Administered Medications: 12:09 Drug: Aspirin PO Chewable Tablet 324 mg PO once; 81 mg tablets x 4 Route: PO; ap3 13:29 Follow up: Response: No adverse reaction ap3 Disposition Summary: 09/11/24 13:14 Discharge Ordered Notes: Location: Home rn Problem: new rn Symptoms: have improved rn Condition: Stable rn Diagnosis - Chest pain, unspecified rn Followup: rn - With: Pavan Hinson MD - When: Today - Reason: Recheck today's complaints, Re-evaluation by your physician Discharge Instructions: - Discharge Summary Sheet rn - Nonspecific Chest Pain, Adult rn - Pain Without a Known Cause rn Forms: - Medication Reconciliation Form rn - Antibiotic science intern - Prescription Opioid Use rn - Patient Portal Instructions rn - Leadership Thank You Letter rn Signatures: Dispatcher [employer] EDJerica Baltazar, RN Alfredo Cordova MD MD rn Prokisch, Amanda, RN RN ap3 Gissell Yoon RN RN [id number] Corrections: (The following items were deleted from the chart) 12:33 12:33 Troponin High Sensitivity+[id number].BRZ ordered. EDWV EDMS
[2024-09-11 16:10] VITALS: TEMP 98.1; O2SAT 100
[2024-09-11 16:13] VITALS: BP 140/67
--- NOTE | 2024-09-12 11:36 | EKG ---
Test Date: 2024-09-11 Test Time: 09:42:43 Leadership Program Intern: MACKENZIE MEASUREMENT RESULTS: Intervals: Rate: 67 NE: 172 QRSD: 136 QT: 448 QTc: 473 Cecil: P: 39 NE: 172 QRS: -35 T: 86 INTERPRETIVE STATEMENTS: Normal sinus rhythm Left axis deviation Left bundle branch block Abnormal ECG Compared to ECG 03/19/2024 23:42:41 Left-axis deviation now present Electronically Signed On 09-12-24 11:32:23 MECHANICAL TECHNICAL SERVICE SPECIALIST by Dinesh Franco
== END 2024-09-11 13:28 | disposition home or self-care (01) ==
LOC: ER 09:24
DX: R07.9 Chest pain, unspecified (principal); I10 Essential (primary) hypertension; E11.9 Type 2 diabetes mellitus without complications; I50.9 Heart failure, unspecified
CPT/HCPCS: 36415; 71045; 80048; 83880; 84484; 85025; 85610; 93005; 99284